=== PATIENT | female | born 1955 | race African-American/Black ===

== ENCOUNTER 2018-03-31 22:27 | Emergency (ER) | payer MEDICAID, OTHER ==
[~2018-03-31] VITALS: Ht 170.2 cm; Wt 88.0 kg
--- OUTSIDE RECORDS SUMMARY | 2018-03-31 22:33 | XMS REPORT ---
Author Author Orly Chanel Organization [employer] Address [address] [place] [address] Care Team Providers Care Transmission And Coordination Engineer Name Role Phone Orly Chanel Unavailable PROBLEMS Type Condition ICD9-CM Code [id number] Code Onset Dates Condition Status SNOMED Code Problem Chronic apical periodontitis K04.5 Active 6780292 Problem Gingivitis K05.10 Active 00690768 Problem 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 F41.1 Active 20507913 Problem Bipolar disorder, current episode mixed, unspecified F31.60 Active 87118319 ALLERGIES No Information ENCOUNTERS Encounter Location Date Diagnosis [facility] [address] [place] [phone] Sep, [facility] [address] [place] [phone] June, 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 F41.[address] [employer] [address] [place] [phone] June, [facility] [address] [place] [phone] [phone] Mar, 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 F41.1 [facility] [address] [place] [phone] Mar, [facility] [address] [place] [address] [phone] Dec, 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 F41.[address] [place] [address] [id number] Oct, Dental [address] [id number] Oct, Encounter for dental examination Z01.20 ; Dental caries extending into dentin K02.62 ; Chronic apical periodontitis K04.5 ; Periodontosis K05.4 and Gingivitis K05.10 Outpatient Adult [address] [place] [phone] Oct, [facility] [address] [place] [id number] [place] [phone] Sep, 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 F41.1 Outpatient Adult [address] [place] [address] May, [facility] [address] [place] [id number] [place] [phone] May, Bipolar disorder, current episode mixed, unspecified F31.60 [facility] [address] [place], [place] [id number] [place] [phone] Feb, [facility] [address] [place] [phone] Jan, Bipolar disorder, current episode mixed, unspecified F31.60 Outpatient Adult [address] [place] [phone] Jan, Bipolar disorder, current episode mixed, unspecified F31.60 Outpatient Adult [address] [place] [address] Dec, Bipolar disorder, current episode mixed, unspecified F31.60 Outpatient Adult [address] [place] [phone] Nov, Bipolar disorder, current episode mixed, unspecified F31.60 [facility] [address] [place] [address] [phone] Nov, [facility] [address] [place] [id number] [place] [phone] [phone] Oct, Bipolar disorder, current episode mixed, unspecified F31.60 Outpatient Adult [address] [place] [phone] Oct, Bipolar disorder, current episode mixed, unspecified F31.60 Outpatient Adult [address] [place] [phone] Sep, Bipolar disorder, current episode mixed, unspecified F31.60 [facility] [address] [place] [id number] [place] [phone] [address][phone] Apr, Bipolar disorder, current episode mixed, unspecified F31.60 [facility] [address] [place] [id number] [place] [phone] Apr, [facility] [address] [place] [address] Apr, [facility] [address] [place] [id number] [place] [phone] Apr, Bipolar disorder, current episode mixed, unspecified F31.60 and Anxiety F41.9 Outpatient Adult [address] [place] [phone] Apr, Bipolar disorder, current episode mixed, unspecified F31.60 and Post- traumatic stress disorder, chronic F43.12 Outpatient Adult [address] [place] [phone] Feb, Bipolar disorder, current episode mixed, unspecified F31.60 and Post- traumatic stress disorder, chronic F43.12 Outpatient Adult [address] [place] [address] Sep, Bipolar affective, mixed 296.60 and Posttraumatic stress disorder 309.81 [facility] [address] [place], [place] [id number] [place] [address]1521 Sep, Bipolar affective, mixed 296.60 and Anxiety disorder 300.00 [facility] Services [address] [place] [id number] [place] [phone] Jul, Bipolar affective, mixed 296.60 and Anxiety disorder 300.00 Outpatient Adult [address] [place] [phone] June, Posttraumatic stress disorder 309.81 and Bipolar affective, mixed 296.60 [facility] [address] [place] [id number] [place] [phone] June, Outpatient Adult [address] [place] [phone] June, Bipolar affective, mixed 296.60 and Posttraumatic stress disorder 309.81 N Outpatient [address] [place] [address] Jan, Bipolar affective, mixed 296.60 and Posttraumatic stress disorder 309.81 [facility] [address] [address] Jan, Bipolar affective, mixed 296.60 and Posttraumatic stress disorder 309.81 [facility] [address] [place] [address] Dec, Bipolar affective, mixed 296.60 and Posttraumatic stress disorder 309.81 [facility] [address] [address] Nov, Bipolar affective, mixed 296.60 and Posttraumatic stress disorder 309.[address] [place] [address] [id number] Nov, Cardiomyopathy 425.4 ; Bipolar affective, mixed 296.60 ; COPD (chronic obstructive pulmonary disease) 496 and Chronic back pain greater than 3 months duration 724.5 [place] [id number] [place] [address] [id number] Oct, [facility] Outpatient [address] [address] Oct, Bipolar affective, mixed 296.60 and Posttraumatic stress disorder 309.81 Psych[facility] Services [address] [place] [address] -[address] Sep, Bipolar affective, mixed 296.60 and Posttraumatic stress disorder 309.81 Outpatient Adult [address] [place] [address] Sep, Bipolar affective, mixed 296.60 and Posttraumatic stress disorder 309.81 [facility] Outpatient [address] [address] June, Bipolar affective, mixed 296.60 and Posttraumatic stress disorder 309.81 [facility] [place] [id number] [place] [phone] Apr, Bipolar affective, mixed 296.60 ; Posttraumatic stress disorder 309.81 and Insomnia, unspecified 780.52 Outpatient Adult [address] [place] [address] Dec, Bipolar affective, mixed 296.60 and Posttraumatic stress disorder 309.81 [facility] [address] [place] [id number] [place] [address] Nov, Bipolar affective, mixed 296.60 ; Posttraumatic stress disorder 309.81 ; Hypertension 401.9 ; Hyperlipidemia (Unspecified) 272.4 ; Coronary atherosclerosis due to calcified coronary lesion 414.4 ; Asthma, unspecified, unspecified status 493.90 ; Chronic pain syndrome 338.4 ; Hypothyroidism (unspecified) 244.9 ; Insomnia, unspecified 780.52 and tobacco use disorder 305.1 [facility] [address] [place] [address] [phone] Nov, [facility] [address] [place] [address] [phone] Nov, Presbyopia 367.4 [facility] [address] [place] [id number] [place] [phone] Nov, [facility] [address] [place] [phone] Nov, Outpatient Adult [address] [place] [address] Oct, Bipolar affective, mixed 296.60 and Posttraumatic stress disorder 309.81 [facility] [address] [place] [id number] [place] [phone] Sep, Bipolar affective, mixed 296.60 ; Posttraumatic stress disorder 309.81 ; Hypertension 401.9 ; Hyperlipidemia (Unspecified) 272.4 ; Coronary atherosclerosis due to calcified coronary lesion 414.4 ; Asthma, unspecified, unspecified status 493.90 ; Chronic pain syndrome 338.4 ; Hypothyroidism (unspecified) 244.9 ; Insomnia, unspecified 780.52 and tobacco use disorder 305.1 [facility] Psych [address] [place] [address] May, Bipolar affective, mixed 296.60 ; Posttraumatic stress disorder 309.81 ; Hypertension 401.9 ; Hyperlipidemia (Unspecified) 272.4 ; Coronary atherosclerosis due to calcified coronary lesion 414.4 ; Asthma, unspecified, unspecified status 493.90 ; Chronic pain syndrome 338.4 ; Hypothyroidism ( unspecified) 244.9 ; Insomnia, unspecified 780.52 ; tobacco use disorder 305.1 and Bipolar I disorder, most recent episode (or current) mixed, unspecified 296.60 [facility] Outpatient [address] [address] May, Bipolar affective, mixed 296.60 and Posttraumatic stress disorder 309.81 [facility] Outpatient [address] [address] Apr, Bipolar I disorder, most recent episode (or current) mixed, unspecified 296.60 [facility] [address] [place] [address] [phone] Mar, [facility] Psych [address] [id number] [address] Feb, Bipolar affective, mixed 296.60 ; Posttraumatic stress disorder 309.81 ; Hypertension 401.9 ; Hyperlipidemia (Unspecified) 272.4 ; Coronary atherosclerosis due to calcified coronary lesion 414.4 ; Asthma, unspecified, unspecified status 493.90 ; Chronic pain syndrome 338.4 ; Hypothyroidism ( unspecified) 244.9 ; Insomnia, unspecified 780.52 and tobacco use disorder 305.[address] [place] [address] [id number] Feb, Pneumonia 486 [facility] Outpatient [address] [address] Sep, Bipolar I disorder, most recent episode (or current) mixed, unspecified 296.[address] [id number] Sep, Hyperlipidemia (Unspecified) 272.4 and Congestive heart failure 428.[address] [id number] Aug, [facility] Psych [place] [id number] [place] [address] Aug, Bipolar affective, mixed 296.60 ; Posttraumatic stress disorder 309.81 ; Hypertension 401.9 ; Hyperlipidemia (Unspecified) 272.4 ; Coronary atherosclerosis due to calcified coronary lesion 414.4 ; Asthma, unspecified, unspecified status 493.90 ; Chronic pain syndrome 338.4 ; Hypothyroidism ( unspecified) 244.9 ; Insomnia, unspecified 780.52 and tobacco use disorder 305.[address] [place] [address] [id number] Aug, [facility] Outpatient [address] [address] Aug, Major depressive disorder, recurrent episode, moderate 296.32 [address] [place] [address] [id number] Aug, Chronic pain syndrome 338.4 ; Asthma, unspecified, unspecified status 493.90 ; Hypothyroidism (unspecified) 244.9 ; Renal failure 586 ; Hyperlipidemia (Unspecified) 272.4 and Screening for HIV (human immunodeficiency virus) V73.89 Psych[facility] Services [address] [place] [id number] [place] [phone] Jul, Major depressive disorder, recurrent episode, moderate 296.32 Outpatient Adult [address] [place] [address] Jul, Major depressive disorder, recurrent episode, moderate 296.32 Outpatient Adult [address] [place] [address] Jul, Major depressive disorder, recurrent episode, moderate 296.32 [facility] [address] [place] [id number] [place] [phone] [address][phone] Jul, Bipolar affective disorder, currently depressed, moderate 296.52 [facility] Psych [place] [id number] [place] [phone] June, Depressive disorder, not elsewhere classified 311 ; Anxiety state, unspecified 300.00 ; Hypertension 401.9 ; Hyperlipidemia (Unspecified) 272.4 ; Coronary atherosclerosis due to calcified coronary lesion 414.4 ; Asthma, unspecified, unspecified status 493.90 ; Chronic pain syndrome 338.4 ; Hypothyroidism (unspecified) 244.9 ; Insomnia, unspecified 780.52 ; tobacco use disorder 305.1 ; Major depressive disorder, recurrent episode, moderate 296.32 and Posttraumatic stress disorder 309.[address] [id number] June, [facility] Outpatient [address] [address] June, Major depressive disorder, recurrent episode, moderate 296.[address] [id number] June, Chronic pain syndrome 338.4 [facility] [address] [place] [address] [id number] May, [facility] Outpatient [address] [address] May, Major depressive disorder, recurrent episode, moderate 296.32 and Posttraumatic stress disorder 309.81 [place] [id number] [place] [address] [id number] May, HIV (human immunodeficiency virus infection) V08 ; Hyperlipidemia ( Unspecified) 272.4 and Chronic pain syndrome 338.[address] [id number] Apr, Chronic pain syndrome 338.4 ; Hypertension 401.9 ; Human immunodeficiency virus [HIV] 042 and Asthma, unspecified, unspecified status 493.90 [facility] Outpatient [address] [address] Apr, Major depressive disorder, recurrent episode, moderate 296.32 [address] [place] [address] [id number] Apr, [address] [id number] Mar, HIV (human immunodeficiency virus infection) V08 [place] [id number] [place] [address] [id number] Mar, [facility] Psych [address] [address] Mar, Anxiety state, unspecified 300.[address] [id number] Mar, Lumbago 724.2 ; Other dyspnea and respiratory abnormalities 786.09 ; Hypothyroidism (unspecified) 244.9 ; Esophageal reflux 530.81 ; Hypertension 401.9 ; Hyperlipidemia (Unspecified) 272.4 and Screening for unspecified condition V82.[address] [id number] Feb, [address] [id number] Feb, Lumbago 724.[address] [id number] Feb, [address] [id number] Feb, [place] [id number] [place] [address] [id number] Jan, Lumbago 724.2 and Other dyspnea and respiratory abnormalities 786.09 [facility] Outpatient [address] [address] Dec, Major depressive disorder, recurrent episode, moderate 296.32 and Posttraumatic stress disorder 309.81 [place] [id number] [place] [address] [id number] Dec, Lumbago 724.2 ; Esophageal reflux 530.81 and Hypothyroidism (unspecified) 244.9 [facility] Psych [place] [id number] [place] [address] Dec, Anxiety state, unspecified 300.00 [facility] Psych [address] [place] [address] Nov, Anxiety state, unspecified 300.[address] [id number] [id number] Nov, Lumbago 724.2 [facility] Outpatient [address] [address] Oct, Major depressive disorder, recurrent episode, moderate 296.32 and Posttraumatic stress disorder 309.[id number] [id number] Oct, [id number] [id number] Sep, [id number] [id number] Sep, Lumbago 724.2 ; Unspecified urinary incontinence 788.30 and Obstructive sleep apnea (adult) (pediatric) 327.[address] [address] Sep, Major depressive disorder, recurrent episode, moderate 296.32 and Posttraumatic stress disorder 309.[id number] [place] [address] [id number] Sep, [id number] [place] [address] [id number] Sep, [id number] [place] [address] [id number] Aug, [id number] [place] [address] Jul, Bipolar I disorder, most recent episode (or current) mixed, unspecified 296.60 and Anxiety state, unspecified 300.[address] [address] Jul, Major depressive disorder, recurrent episode, moderate 296.32 and Posttraumatic stress disorder 309.[id number] [place] [address] [id number] Jul, Lumbago 724.2 ; Personal history of tobacco use, presenting hazards to health V15.82 ; Memory loss 780.93 and Obstructive sleep apnea (adult) ( pediatric) 327.[id number] [place] [address] [id number] Jul, [address] [id number] [id number] Jul, [address] [place] [address] [id number] June, [address] [id number] June, [address] [id number] June, Cough 786.2 [facility] Psych [place] [id number] [place] [address] June, Anxiety state, unspecified 300.00 [facility] Outpatient [address] [address] May, Major depressive disorder, recurrent episode, moderate 296.32 and Posttraumatic stress disorder 309.81 [id number] [id number] May, Lumbago 724.2 and Other dyspnea and respiratory abnormalities 786.09 [facility] Dental [address] [place], [place] [id number] [place] [address] [id number] May, Unspecified dental caries 521.00 [facility] Outpatient [address] [address] Mar, Major depressive disorder, recurrent episode, moderate 296.32 and Posttraumatic stress disorder 309.81 [facility] Dental [address] [place] [id number] Mar, Unspecified dental caries 521.00 and Other specified periodontal diseases 523.8 [address] [id number] Mar, Backache (Unspecified) 724.5 and Wheezing 786.07 [facility] Outpatient [address] [address] Mar, Major depressive disorder, recurrent episode, moderate 296.32 and Posttraumatic stress disorder 309.81 [facility] Outpatient [address] [address] Feb, Major depressive disorder, recurrent episode, moderate 296.32 and Posttraumatic stress disorder 309.81 [facility] [address] [address] Feb, Major depressive disorder, recurrent episode, moderate 296.32 and 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 300.02 Outpatient Adult [address] [place] [address] Feb, Major depressive disorder, recurrent episode, moderate 296.32 and Posttraumatic stress disorder 309.81 [facility] [address] [place] [address] Feb, Major depressive disorder, recurrent episode, moderate 296.32 and Posttraumatic stress disorder 309.81 [facility] Dental [address] [facility] [id number] [id number] Feb, Dental examination V72.2 and Periodontosis 523.5 [facility] [address] [facility] [id number] [id number] Feb, Lumbago 724.2 ; Esophageal reflux 530.81 ; Unspecified urinary incontinence 788.30 ; Constipation (Unspecified) 564.00 ; Other dyspnea and respiratory abnormalities 786.09 and Hypothyroidism (unspecified) 244.9 Outpatient Adult [address] [place] [address] Feb, Outpatient Adult [address] [place] [address] Feb, Major depressive disorder, recurrent episode, moderate 296.32 and Posttraumatic stress disorder 309.81 [facility] [address] [place] [address] Feb, Major depressive disorder, recurrent episode, moderate 296.32 and Posttraumatic stress disorder 309.81 [facility] [address] [place] [id number] Feb, IMMUNIZATIONS No Known Immunizations SOCIAL HISTORY Never Assessed REASON FOR VISIT Case Management PLAN OF CARE VITAL SIGNS MEDICATIONS Unknown Medications RESULTS No Results PROCEDURES Procedure Date Ordered Result Body Site CASE MNMT-PARAPROFESS IND 15 MIN June 29, 2017 INSTRUCTIONS MEDICATIONS ADMINISTERED No Known Medications MEDICAL (GENERAL) HISTORY Type Description Date Medical History High Blood Pressure Medical History High Cholesterol Medical History Coronary Artery Disease Medical History Asthma Medical History Chronic back pain Medical History Anxiety Medical History depression Medical History hypothyroidism Medical History Bipolar affective, mixed Medical History Posttraumatic stress disorder Medical History Posttraumatic stress disorder Medical History Hypertension Medical History Hyperlipidemia (Unspecified) Medical History Coronary atherosclerosis due to calcified coronary lesion Medical History Asthma, unspecified, unspecified status Medical History Chronic pain syndrome Medical History Hypothyroidism (unspecified) Medical History Insomnia, unspecified Medical History tobacco use disorder Medical History Cardiomyopathy Medical History COPD (chronic obstructive pulmonary disease) Medical History Chronic back pain greater than 3 months duration Medical History CHF (congestive heart failure) Medical History Post-traumatic stress disorder, chronic Surgical History 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
--- OUTSIDE RECORDS SUMMARY | 2018-03-31 22:34 | XMS REPORT ---
Author Author Deepika Christiansen Organization [employer] Address Unknown Phone Unavailable Care Team Providers Care Technical Translator Name Role Phone Deepika Christiansen Unavailable Allergies No Known Allergies Problems Problem Type Condition Code Onset Dates Condition Status Problem Bipolar disorder, current episode mixed, unspecified F31.60 Active Medications Medication Code System Code Instructions Start Date End Date Status Dosage Benzonatate [facility] [address]-44 200 MG Orally Three times a day Sep 28, 2013 1 capsule as needed Potassium Chloride [facility] [address]-81 10 MEQ Orally Once a day April 29, 2011 2 tablet Aspir-81 [facility] [address]-23 81 MG Orally Once a day 1 tablet Spiriva HandiHaler [facility] [address]-76 18 MCG Inhalation Once a day 1 capsule Spironolactone [facility] [address]-78 25 MG Orally Twice a day 1 tablet Xanax [facility] [place] [address]-04 0.5 MG Orally tid prn anxiety 1 tablet Advair HFA [facility] [place] [address]-90 115-21 MCG/ACT Inhalation Twice a day 2 puffs Xanax [facility] [place] [address]-62 1 MG Orally tid prn anxiety 1 tablet Coreg [facility] [address]-21 25 MG Orally Twice a day 1 tablet Percocet [facility] [place] [address]-49 7.5-325 MG Orally tid prn pain 1 tablet as needed Results No Known Results Summary Purpose [employer] Submission
--- OUTSIDE RECORDS SUMMARY | 2018-03-31 22:34 | XMS REPORT ---
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 Name Role Phone Jimbo Christianson Unavailable PROBLEMS Type Condition ICD9-CM Code [id number] Code Onset Dates Condition Status SNOMED Code Problem Chronic apical periodontitis K04.5 Active 2993894 Problem Gingivitis K05.10 Active 29206349 Problem 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 F41.1 Active 33134451 Problem Bipolar disorder, current episode mixed, unspecified F31.60 Active 83177154 ALLERGIES Substance Reaction Event Type Date Status morphine Unknown Drug Allergy Sep, Active Iodine Unknown Drug Allergy Sep, Active Adhesive Tape Rash Non Drug Allergy Sep, Active ENCOUNTERS Encounter Location Date Diagnosis [facility] [address] [place] [id number] [place] [address] [phone] Dec, [facility] [address] [place] [phone] Sep, 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 F41.1 [facility] [address] [place] [phone] June, 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 F41.1 [employer] [address] [place] [address] June, [facility] [address] [place] [id number] [place] [address] [phone] Mar, 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 F41.1 [facility] [address] [place] [id number] [place] [address] [phone] Mar, [facility] [address] [place] [phone] Dec, 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 F41.1 Optometry [address] [place] [phone] Oct, Dental [address] [id number] Oct, Encounter for dental examination Z01.20 ; Dental caries extending into dentin K02.62 ; Chronic apical periodontitis K04.5 ; Periodontosis K05.4 and Gingivitis K05.10 Outpatient Adult [address] [place] [address] Oct, [facility] [address] [place] [id number] [place] [phone] Sep, 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 F41.1 Outpatient Adult [address] [place] [address] May, [facility] [address] [place] [phone] May, Bipolar disorder, current episode mixed, unspecified F31.60 [facility] [address] [place] [id number] [place] [phone] Feb, [facility] [address] [place] [phone] Jan, Bipolar disorder, current episode mixed, unspecified F31.60 Outpatient Adult [address] [place] [address] Jan, Bipolar disorder, current episode mixed, unspecified F31.60 Outpatient Adult [address] [place] [address] Dec, Bipolar disorder, current episode mixed, unspecified F31.60 Outpatient Adult [address] [place] [address] Nov, Bipolar disorder, current episode mixed, unspecified F31.60 [facility] [address] [place] [address] [phone] Nov, [facility] [address] [place] [id number] [place] [phone] Oct, Bipolar disorder, current episode mixed, unspecified F31.60 Outpatient Adult [address] [place] [address] Oct, Bipolar disorder, current episode mixed, unspecified F31.60 Outpatient Adult [address] [place] [address] Sep, Bipolar disorder, current episode mixed, unspecified F31.60 [facility] [address] [place] [id number] [place] [phone] Apr, Bipolar disorder, current episode mixed, unspecified F31.60 [facility] [address] [place] [id number] [place] [phone] Apr, [facility] [address] [place] [address] Apr, [facility] [address] [place] [id number] [place] [phone] Apr, Bipolar disorder, current episode mixed, unspecified F31.60 and Anxiety F41.9 Outpatient Adult [address] [place] [address] Apr, Bipolar disorder, current episode mixed, unspecified F31.60 and Post- traumatic stress disorder, chronic F43.12 Outpatient Adult [address] [place] [address] Feb, Bipolar disorder, current episode mixed, unspecified F31.60 and Post- traumatic stress disorder, chronic F43.12 Outpatient Adult [address] [place] [address] Sep, Bipolar affective, mixed 296.60 and Posttraumatic stress disorder 309.81 [facility] [address] [place] [id number] [place] [phone] Sep, Bipolar affective, mixed 296.60 and Anxiety disorder 300.00 [facility] [address] [place] [id number] [place] [phone] Jul, Bipolar affective, mixed 296.60 and Anxiety disorder 300.00 Outpatient Adult [address] [place] [address] June, Posttraumatic stress disorder 309.81 and Bipolar affective, mixed 296.60 [facility] [address] [place] [id number] [place] [phone] June, Outpatient Adult [address] [place] [phone] June, Bipolar affective, mixed 296.60 and Posttraumatic stress disorder 309.81 N Outpatient [address] [place] [address] Jan, Bipolar affective, mixed 296.60 and Posttraumatic stress disorder 309.81 [facility] [address] [place] [id number] [place] [address] Jan, Bipolar affective, mixed 296.60 and Posttraumatic stress disorder 309.81 [facility] Outpatient [address] [address] Dec, Bipolar affective, mixed 296.60 and Posttraumatic stress disorder 309.81 [facility] Outpatient [address] [address] Nov, Bipolar affective, mixed 296.60 and Posttraumatic stress disorder 309.81 [address] [id number] Nov, Cardiomyopathy 425.4 ; Bipolar affective, mixed 296.60 ; COPD (chronic obstructive pulmonary disease) 496 and Chronic back pain greater than 3 months duration 724.5 [place] [id number] [place] [address] [phone] Oct, [facility] Outpatient [address] [address] Oct, Bipolar affective, mixed 296.60 and Posttraumatic stress disorder 309.81 [facility] [address] [place] [id number] [place] [phone] Sep, Bipolar affective, mixed 296.60 and Posttraumatic stress disorder 309.81 Outpatient Adult [address] [place] [address] Sep, Bipolar affective, mixed 296.60 and Posttraumatic stress disorder 309.81 [facility] Outpatient [address] [address] June, Bipolar affective, mixed 296.60 and Posttraumatic stress disorder 309.81 [facility] Psych [address] [place] [address] Apr, Bipolar affective, mixed 296.60 ; Posttraumatic stress disorder 309.81 and Insomnia, unspecified 780.52 Outpatient Adult [address] [place] [address] Dec, Bipolar affective, mixed 296.60 and Posttraumatic stress disorder 309.81 [facility] [address] [place] [id number] [place] [address] Nov, Bipolar affective, mixed 296.60 ; Posttraumatic stress disorder 309.81 ; Hypertension 401.9 ; Hyperlipidemia (Unspecified) 272.4 ; Coronary atherosclerosis due to calcified coronary lesion 414.4 ; Asthma, unspecified, unspecified status 493.90 ; Chronic pain syndrome 338.4 ; Hypothyroidism (unspecified) 244.9 ; Insomnia, unspecified 780.52 and tobacco use disorder 305.1 [facility] [address] [place] [phone] Nov, [facility] [address] [place] [phone] Nov, Presbyopia 367.4 [facility] [address] [place] [address] [id number] [address] Nov, [facility] [address] [place] [address] [phone] Nov, Outpatient Adult [address] [place] [address] Oct, Bipolar affective, mixed 296.60 and Posttraumatic stress disorder 309.81 [facility] [address] [place] [address] Sep, Bipolar affective, mixed 296.60 ; Posttraumatic stress disorder 309.81 ; Hypertension 401.9 ; Hyperlipidemia (Unspecified) 272.4 ; Coronary atherosclerosis due to calcified coronary lesion 414.4 ; Asthma, unspecified, unspecified status 493.90 ; Chronic pain syndrome 338.4 ; Hypothyroidism (unspecified) 244.9 ; Insomnia, unspecified 780.52 and tobacco use disorder 305.1 N Psych [facility] [id number] [address] May, Bipolar affective, mixed 296.60 ; Posttraumatic stress disorder 309.81 ; Hypertension 401.9 ; Hyperlipidemia (Unspecified) 272.4 ; Coronary atherosclerosis due to calcified coronary lesion 414.4 ; Asthma, unspecified, unspecified status 493.90 ; Chronic pain syndrome 338.4 ; Hypothyroidism ( unspecified) 244.9 ; Insomnia, unspecified 780.52 ; tobacco use disorder 305.1 and Bipolar I disorder, most recent episode (or current) mixed, unspecified 296.60 [facility] Outpatient [facility] [place] [address] May, Bipolar affective, mixed 296.60 and Posttraumatic stress disorder 309.81 [facility] Outpatient [facility] [place] [address] Apr, Bipolar I disorder, most recent episode (or current) mixed, unspecified 296.60 [facility] [address] [place] [address] [phone] Mar, [facility] Psych [address] [id number] [address] Feb, Bipolar affective, mixed 296.60 ; Posttraumatic stress disorder 309.81 ; Hypertension 401.9 ; Hyperlipidemia (Unspecified) 272.4 ; Coronary atherosclerosis due to calcified coronary lesion 414.4 ; Asthma, unspecified, unspecified status 493.90 ; Chronic pain syndrome 338.4 ; Hypothyroidism ( unspecified) 244.9 ; Insomnia, unspecified 780.52 and tobacco use disorder 305.[id number] [place] [address] [id number] Feb, Pneumonia 486 [facility] Outpatient [address] [address] Sep, Bipolar I disorder, most recent episode (or current) mixed, unspecified 296.[id number] [place] [address] [id number] Sep, Hyperlipidemia (Unspecified) 272.4 and Congestive heart failure 428.0 [address] [place] [address] [id number] Aug, [id number] [place] [address] Aug, Bipolar affective, mixed 296.60 ; Posttraumatic stress disorder 309.81 ; Hypertension 401.9 ; Hyperlipidemia (Unspecified) 272.4 ; Coronary atherosclerosis due to calcified coronary lesion 414.4 ; Asthma, unspecified, unspecified status 493.90 ; Chronic pain syndrome 338.4 ; Hypothyroidism ( unspecified) 244.9 ; Insomnia, unspecified 780.52 and tobacco use disorder 305.[id number] [place] [address] [id number] Aug, [facility] Outpatient [address] [address] Aug, Major depressive disorder, recurrent episode, moderate 296.[id number] [place] [address] [id number] Aug, Chronic pain syndrome 338.4 ; Asthma, unspecified, unspecified status 493.90 ; Hypothyroidism (unspecified) 244.9 ; Renal failure 586 ; Hyperlipidemia (Unspecified) 272.4 and Screening for HIV (human immunodeficiency virus) V73.89 [facility] [address] [id number], [place] [address] Jul, Major depressive disorder, recurrent episode, moderate 296.32 Outpatient Adult [address] [place] [address] Jul, Major depressive disorder, recurrent episode, moderate 296.32 Outpatient Adult [address] [place] [address] Jul, Major depressive disorder, recurrent episode, moderate 296.32 [facility] [address] [place] [address]71 [address] Jul, Bipolar affective disorder, currently depressed, moderate 296.52 [facility] Psych [place] [id number] [place] [address] June, Depressive disorder, not elsewhere classified 311 [...] moderate 296.32 and Posttraumatic stress disorder 309.81 [place] [id number] [place] [address] [id number] June, [facility] Outpatient [address] [address] June, Major depressive disorder, recurrent episode, moderate 296.32 [place] [id number] [place] [address] [id number] June, Chronic pain syndrome 338.4 [facility] [address] [place] [address] [id number] May, [facility] Outpatient [address] [address] May, Major depressive disorder, recurrent episode, moderate 296.32 and Posttraumatic stress disorder 309.[address] [place] [id number] [place] [address] [id number] May, HIV (human immunodeficiency virus infection) V08 ; Hyperlipidemia ( Unspecified) 272.4 and Chronic pain syndrome 338.[address] [place] [id number] [place] [address] [id number] Apr, Chronic pain syndrome 338.4 ; Hypertension 401.9 ; Human immunodeficiency virus [HIV] 042 and Asthma, unspecified, unspecified status 493.90 [facility] Outpatient [address] [address] Apr, Major depressive disorder, recurrent episode, moderate 296.32 [place] [id number] [place] [address] [id number] Apr, [address] [id number] Mar, HIV (human immunodeficiency virus infection) V08 [place] [id number] [place] [address] [id number] Mar, [facility] Psych [address] [address] Mar, Anxiety state, unspecified 300.00 [place] [id number] [place] [address] [id number] Mar, Lumbago 724.2 ; Other dyspnea and respiratory abnormalities 786.09 ; Hypothyroidism (unspecified) 244.9 ; Esophageal reflux 530.81 ; Hypertension 401.9 ; Hyperlipidemia (Unspecified) 272.4 and Screening for unspecified condition V82.9 [place] [id number] [place] [address] [id number] Feb, [place] [id number] [place] [address] [id number] Feb, Lumbago 724.[address] [place] [address] [id number] Feb, [place] [id number] [place] [address] [id number] Feb, [address] [place] [address] [phone] Jan, Lumbago 724.2 and Other dyspnea and respiratory abnormalities 786.09 [facility] Outpatient [address] [address] Dec, Major depressive disorder, recurrent episode, moderate 296.32 and Posttraumatic stress disorder 309.81 [address] [id number] Dec, Lumbago 724.2 ; Esophageal reflux 530.81 and Hypothyroidism (unspecified) 244.9 [facility] Psych [address] [id number], [place] [address] Dec, Anxiety state, unspecified 300.00 [facility] Psych [address] [id number], [place] [address] Nov, Anxiety state, unspecified 300.[id number] [place] [address] [id number] Nov, Lumbago 724.2 [facility] Outpatient [address] [address] Oct, Major depressive disorder, recurrent episode, moderate 296.32 and Posttraumatic stress disorder 309.[id number] [place] [address] [id number] Oct, [address] [id number] [id number] Sep, [address] [id number] [place] [address] [id number] Sep, Lumbago 724.2 ; Unspecified urinary incontinence 788.30 and Obstructive sleep apnea (adult) (pediatric) 327.23 [facility] Outpatient [address] [address] Sep, Major depressive disorder, recurrent episode, moderate 296.32 and Posttraumatic stress disorder 309.[address] [id number] [id number] Sep, [address] [id number][place] [id number] Sep, [address] [id number][place] [id number] Aug, [id number] [place] [address] Jul, Bipolar I disorder, most recent episode (or current) mixed, unspecified 296.60 and Anxiety state, unspecified 300.00 [facility] Outpatient [address] [address] Jul, Major depressive disorder, recurrent episode, moderate 296.32 and Posttraumatic stress disorder 309.[address] [id number] [id number] Jul, Lumbago 724.2 ; Personal history of tobacco use, presenting hazards to health V15.82 ; Memory loss 780.93 and Obstructive sleep apnea (adult) ( pediatric) 327.[id number] [place] [address] [id number] Jul, [id number] [place] [address] [id number] Jul, [id number] [id number] June, [id number] [id number] June, [id number] [id number] June, Cough 786.2 [facility] Psych [address] [address] June, Anxiety state, unspecified 300.00 [facility] Outpatient [address] [address] May, Major depressive disorder, recurrent episode, moderate 296.32 and Posttraumatic stress disorder 309.[address] [place] [id number] [place] [address] [id number] May, Lumbago 724.2 and Other dyspnea and respiratory abnormalities 786.09 [facility] Dental [address] [place] [address] [id number] May, Unspecified dental caries 521.00 [facility] Outpatient [address] [address] Mar, Major depressive disorder, recurrent episode, moderate 296.32 and Posttraumatic stress disorder 309.81 [facility] Dental [address] [place] [address] [id number] Mar, Unspecified dental caries 521.00 and Other specified periodontal diseases 523.[address] [id number] Mar, Backache (Unspecified) 724.5 and Wheezing 786.07 [facility] Outpatient [address] [address] Mar, Major depressive disorder, recurrent episode, moderate 296.32 and Posttraumatic stress disorder 309.81 [facility] Outpatient [address] [address] Feb, Major depressive disorder, recurrent episode, moderate 296.32 and Posttraumatic stress disorder 309.81 [facility] [address] [facility] [id number], [place] [address] Feb, Major depressive disorder, recurrent episode, moderate 296.32 and 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 300.02 Outpatient Adult [address] [place] [address] Feb, Major depressive disorder, recurrent episode, moderate 296.32 and Posttraumatic stress disorder 309.81 [facility] [address] [place] [address] Feb, Major depressive disorder, recurrent episode, moderate 296.32 and Posttraumatic stress disorder 309.81 [facility] Dental [address] [facility] [id number] [id number] Feb, Dental examination V72.2 and Periodontosis 523.5 [facility] [address] [facility] [id number], [place] [id number] Feb, Lumbago 724.2 ; Esophageal reflux 530.81 ; Unspecified urinary incontinence 788.30 ; Constipation (Unspecified) 564.00 ; Other dyspnea and respiratory abnormalities 786.09 and Hypothyroidism (unspecified) 244.9 Outpatient Adult [address] [place] [address] Feb, Outpatient Adult [address] [place] [address] Feb, Major depressive disorder, recurrent episode, moderate 296.32 and Posttraumatic stress disorder 309.81 [facility] [address] [place] [address] Feb, Major depressive disorder, recurrent episode, moderate 296.32 and Posttraumatic stress disorder 309.81 [facility] [address] [place] [address] [id number] Feb, IMMUNIZATIONS No Known Immunizations SOCIAL HISTORY Never Assessed REASON FOR VISIT Med ck , follow-up for generalized anxiety disorder PLAN OF CARE Activity Details Follow Up 3 Months Reason: VITAL SIGNS Height 61 in 2017-09-30 Weight 195 lbs 2017-09-30 Temperature 96.1 degrees Fahrenheit 2017-09-30 BMI 36.84 kg/m2 2017-09-30 Blood pressure systolic 107 mm Hg 2017-09-30 Blood pressure diastolic 80 mm Hg 2017-09-30 MEDICATIONS Medication Instructions Dosage Frequency Start Date End Date Duration Status Vitamin D 1000 UNIT Orally Once a day 1 tablet 24h 30 day(s) Active Levaquin 500 MG Orally Once a day 1 tablet 24h Active Fish Oil 1000 MG as directed Not-Taking Promethazine HCl Active Fluticasone Propionate (Inhal) 50 MCG/BLIST Inhalation Twice a day 1 puff 12h Active Torsemide 10 MG Orally Once a day 1 tablet 24h Active Potassium Chloride 10 MEQ Orally Once a day 2 tablet 24h Apr, Not-Taking Acetaminophen 500 MG Orally every 6 hrs 1 capsule as needed 6h Active Docusate Sodium 100 MG Orally bid 1 capsule as needed 12h Active Spironolactone 25 MG Orally Twice a day 1 tablet 12h Active 28-0.8 MG Active Nicotrol 10 MG Inhalation qid 1 puff as needed 6h Active Norvasc 5 MG Orally Once a day 1 tablet 24h 30 days Active Xanax 0.5 MG Orally Three times a day(don't fill until 10/31/17) 1 tablet 60 days Active Nitroglycerin 0.4 MG Sublingual every 8 hrs 1 tablet under the tongue 8h Active Lisinopril 2.5 MG Orally Once a day 1 tablet 24h Not-Taking Albuterol Sulfate (2.5 MG/3ML) 0.083% Inhalation Three times a day 3 ml 8h Feb, Active Polyethylene Glycol - Not-Taking Entresto 24-26 MG Orally Twice a day 1 tablet 12h Active Valsartan 40 MG Orally Twice a day 1 tablet 12h Active Daliresp 500 MCG Orally Once a day 1 tablet 24h Active Benzonatate 200 MG Orally Three times a day 1 capsule as needed 8h Sep, Active Spiriva HandiHaler 18 MCG Inhalation Once a day 1 capsule 24h Active Atrovent HFA 17 MCG/ACT Inhalation Four times a day 2 puffs 6h Active ALPRAZolam 0.5 MG Orally three times daily(can take a total of 120) 1-2 tablet Active oxyCODONE-Acetaminophen 7.5-325 MG Orally every 6 hrs 1 tablet as needed 6h Active Breo Ellipta 200-25 MCG/INH Inhalation Once a day 1 puff 24h Active Percocet 7.5-325 MG Orally tid prn pain 1 tablet as needed 30 days Active Voltaren 1 % Active Eliquis 5 MG Active Acyclovir 400 MG Orally Twice a day 1 tablet 12h Active Amiodarone HCl 200 MG Orally Once a day 1 tablet 24h Not-Taking Coreg 6.25 MG Orally Twice a day 1 tablet 12h Active Carvedilol 25 MG Orally Twice a day 1 tablet with food 12h Sep, Not-Taking Senna 8.6 MG Orally Once a day 2 tablets at bedtime as needed 24h Active Lasix 80 MG Orally Once a day 1 tablet 24h Active Advair HFA 115-21 MCG/ACT Inhalation Twice a day 2 puffs 12h Active Levothyroxine Sodium 25 MCG TAKE ONE TABLET BY MOUTH EVERY MORNING FOR EMPTY STOMACH Active Atorvastatin Calcium 40 MG Orally Once a day 1 tablet 24h Active Lexapro 10 MG Orally Once a day in AM 1 tablet Apr, 90 days Active Aspir-81 81 MG Orally Once a day 1 tablet 24h Active Lovastatin 40 mg Orally Once a day 1 tablet with a meal 24h Active Albuterol Sulfate HFA 108 (90 Base) MCG/ACT Inhalation every 4 hrs 2 puffs as needed 4h Active Omeprazole 20 MG Orally Once a day 1 tablet 24h 30 days Active RESULTS No Results PROCEDURES No Known procedures INSTRUCTIONS MEDICATIONS ADMINISTERED No Known Medications MEDICAL [...] 10/2014 Surgical History trach 09/2014 Hospitalization History [place], [place] 09/2014
--- OUTSIDE RECORDS SUMMARY | 2018-03-31 22:34 | XMS REPORT ---
Author Author Benjamin Sierra Organization [employer] Address Unknown Phone Unavailable Care Team Providers Care Under Baster Name Role Phone Benjamin Sierra CP Unavailable Allergies No Known Allergies Problems Problem Type Condition Code Onset Dates Condition Status Assessment Bipolar disorder, current episode mixed, unspecified F31.60 Active Problem Bipolar disorder, current episode mixed, unspecified F31.60 Active Medications Medication Code System Code Instructions Start Date End Date Status Dosage Coreg [facility] [address]-82 25 MG Orally Twice a day 1 tablet Spiriva HandiHaler [facility] [address]-76 18 MCG Inhalation Once a day 1 capsule Advair HFA [facility] [address]-91 115-21 MCG/ACT Inhalation Twice a day 2 puffs Xanax [facility] [address]-58 1 MG Orally tid prn anxiety 1 tablet Xanax [facility] [address]-81 0.5 MG Orally tid prn anxiety 1 tablet Percocet [facility] [address]-44 7.5-325 MG Orally tid prn pain 1 tablet as needed Aspir-81 [facility] [address]-62 81 MG Orally Once a day 1 tablet Benzonatate [facility] [address]-05 200 MG Orally Three times a day Sep 28, 2013 1 capsule as needed Spironolactone [facility] [address]-49 25 MG Orally Twice a day 1 tablet Potassium Chloride [facility] [address]-09 10 MEQ Orally Once a day April 29, 2011 2 tablet Procedures Procedure Coding System Code Date PSYTX PT&/FAMILY 45 MINUTES CPT-4 01434 Dec 05, 2015 [facility]IS[facility] M[facility] HEALTH ESTABLISHED PATIENT CPT-4 G0470 Dec 05, 2015 Results No Known Results Summary Purpose eClinicalWorks Submission
--- OUTSIDE RECORDS SUMMARY | 2018-03-31 22:34 | XMS REPORT ---
Author Benjamin Samuels [facility] [employer] Address Unknown Phone Unavailable Care Team Providers Care Manager Services Name Role Phone Benjamin Sierra Unavailable Allergies No Known Allergies Problems Problem Type Condition Code Onset Dates Condition Status Problem Asthma, unspecified, unspecified status 493.90 Active Problem Hyperlipidemia (Unspecified) 272.4 Active Problem Coronary atherosclerosis due to calcified coronary lesion 414.4 Active Problem COPD (chronic obstructive pulmonary disease) 496 Active Problem Chronic back pain greater than 3 months duration 724.5 Active Problem Cardiomyopathy 425.4 Active Problem Post-traumatic stress disorder, chronic F43.12 Active Problem Hypertension 401.9 Active Problem CHF (congestive heart failure) 428.0 Active Problem Bipolar disorder, current episode mixed, unspecified F31.60 Active Problem tobacco use disorder 305.1 Active Problem Insomnia, unspecified 780.52 Active Assessment Post-traumatic stress disorder, chronic F43.12 Active Problem Hypothyroidism (unspecified) 244.9 Active Assessment Bipolar disorder, current episode mixed, unspecified F31.60 Active Problem Chronic pain syndrome 338.4 Active Medications Medication Code System Code Instructions Start Date End Date Status Dosage Spiriva HandiHaler [facility] [address]-48 18 MCG Inhalation Once a day 1 capsule Albuterol Sulfate [facility] [address]-18 (2.5 MG/3ML) 0.083% Inhalation Three times a day Feb 25, 2012 3 ml Fish Oil [facility] [address]-86 1000 MG Orally as directed Nitroglycerin [facility] [address]-87 0.4 MG Sublingual every 8 hrs 1 tablet under the tongue Levothyroxine Sodium [facility] [address]-61 50 MCG TAKE ONE TABLET BY MOUTH EVERY MORNING FOR EMPTY STOMACH Seroquel [facility] [address]-46 50 MG Orally at bedtime Dec 08, 2012 1 tablet Lamictal [facility] [address]-67 25 MG Orally at bedtime July 26, 2014 1 tablet Lovastatin [facility] [address]-63 40 mg Orally Once a day 1 tablet with a meal Coreg [facility] [address]-13 25 MG Orally Twice a day 1 tablet Omeprazole [facility] [address]-57 20 MG Orally Once a day 1 tablet Vitamin D [facility] [address]-55 1000 UNIT Orally Once a day 1 tablet Daliresp [facility] [address]-13 500 MCG Orally Once a day 1 tablet Nicotrol [facility] [address]-56 10 MG Inhalation qid 1 puff as needed Docusate Sodium [facility] [address]-73 100 MG Orally bid 1 capsule as needed Aspir-81 [facility] [address]-08 81 MG Orally Once a day 1 tablet Advair HFA [facility] [address]-14 115-21 MCG/ACT Inhalation Twice a day 2 puffs Lamictal [facility] [address]-98 25 MG Orally at bedtime 2 tablets [facility] [address]54-[address]1600 28-0.8 MG Orally not defined Lisinopril [facility] [address]-01 2.5 MG Orally Once a day 1 tablet Potassium Chloride [facility] [address]-21 10 MEQ Orally Once a day April 29, 2011 2 tablet Spironolactone [facility] [address]-73 25 MG Orally Twice a day 1 tablet Carvedilol [facility] [address]-76 25 MG Orally Twice a day Sep 28, 2013 1 tablet with food Xanax [facility] [address]-33 1 MG Orally tid prn anxiety 1 tablet Norvasc [facility] [address]-25 5 MG Orally Once a day 1 tablet Lasix [facility] [address]-26 80 MG Orally Once a day 1 tablet Benzonatate [facility] [address]-04 200 MG Orally Three times a day Sep 28, 2013 1 capsule as needed Albuterol Sulfate HFA [facility] [address]-68 108 (90 Base) MCG/ACT Inhalation every 4 hrs 2 puffs as needed Percocet [facility] [address]-23 7.5-325 MG Orally tid prn pain 1 tablet as needed Acetaminophen [facility] [address]-80 500 MG Orally every 6 hrs 1 capsule as needed Results No Known Results Summary Purpose eClinicalWorks Submission
--- OUTSIDE RECORDS SUMMARY | 2018-03-31 22:35 | XMS REPORT ---
Author Author Jimbo Christianson Organization [employer] Address Unknown Phone Unavailable Care Team Providers Care Assembly Machine Feeder Name Role Phone Jimbo Christianson CP Unavailable Allergies, Adverse Reactions, Alerts Substance Reaction Event Type morphine Info Not Available Drug Allergy Iodine Info Not Available Drug Allergy Adhesive Tape Rash Non Drug Allergy Problems Problem Type Condition Code Onset Dates Condition Status Assessment Bipolar disorder, current episode mixed, unspecified F31.60 Active Problem Bipolar disorder, current episode mixed, unspecified F31.60 Active Medications Medication Code System Code Instructions Start Date End Date Status Dosage Aspir-[address] [facility] [address]-55 81 MG Orally Once a day [address] [facility] [address]-75 25 MG Orally Twice a day 1 tablet Potassium Chloride [facility] [address]-81 10 MEQ Orally Once a day April 29, 2011 2 tablet Spiriva HandiHaler [facility] [address]-74 18 MCG Inhalation Once a day [address] HFA [facility] [address]-21 115-21 MCG/ACT Inhalation Twice a day 2 puffs Fluticasone Propionate (Inhal) [facility] [address]-82 50 MCG/BLIST Inhalation Twice a day 1 puff Oxycodone-Acetaminophen [facility] [address]-01 7.5-325 MG Orally every 6 hrs 1 tablet as needed Coreg [facility] [address]-63 25 MG Orally Twice a day [address] [facility] [address]-15 7.5-325 MG Orally tid prn pain 1 tablet as needed Acyclovir [facility] [address]-07 400 MG Orally Twice a day 1 tablet Polyethylene Glycol [facility] [address]-75 - not defined Benzonatate [facility] [address]-73 200 MG Orally Three times a day Sep 28, 2013 1 capsule as needed Lexapro [facility] [address]-60 10 mg Orally Once a day in AM April 15, [address] [facility] [address]-72 10 MG Orally Once a day 1 tablet Amiodarone HCl [facility] [address]-96 200 MG Orally Once a day [address] [facility] [address]-78 0.5 MG Orally Three times a day [address] [facility] [address]-06 1 MG Orally tid prn anxiety [address] [facility] [address]-43 1 % Transdermal not defined Procedures Procedure Coding System Code Date ESTAB PT LEVEL III CPT-4 75228 Jan 17, 2016 [facility]IS[facility] ESTABLISHED PATIENTS CPT-4 G0467 Jan 17, 2016 Vital Signs Date/Time: Jan 17, 2016 Temperature 97.9 F Weight w/c lbs Height w/c in Pain Scale 0 0-10 Blood Pressure Diastolic 78 mm Hg Blood Pressure Systolic 108 mm Hg Results No Known Results Summary Purpose eClinicalWorks Submission
--- OUTSIDE RECORDS SUMMARY | 2018-03-31 22:35 | XMS REPORT ---
Author Benjamin Samuels [facility] eClinicalWorks Address Unknown Phone Unavailable Care Team Providers Care Charge Coordinator Name Role Phone Benjamin Sierra Unavailable Allergies No Known Allergies Problems Problem Type Condition Code Onset Dates Condition Status Assessment Bipolar disorder, current episode mixed, unspecified F31.60 Active Problem Bipolar disorder, current episode mixed, unspecified F31.60 Active Medications Medication Code System Code Instructions Start Date End Date Status Dosage Daliresp [facility] [address]-48 500 MCG Orally Once a day [address] [facility] [address]356[address]846 28-0.8 MG Orally not defined Acetaminophen [facility] [address]-73 500 MG Orally every 6 hrs 1 capsule as needed Levothyroxine Sodium [facility] [address]-96 50 MCG TAKE ONE TABLET BY MOUTH EVERY MORNING FOR EMPTY STOMACH Fish Oil [facility] [address]-44 1000 MG Orally as directed Advair HFA [facility] [address]-70 115-21 MCG/ACT Inhalation Twice a day 2 puffs Aspir-[address] [facility] [address]-78 81 MG Orally Once a day [address] [facility] [address]-73 10 MG Inhalation qid 1 puff as needed Vitamin D [facility] [address]-24 1000 UNIT Orally Once a day [address] [facility] [address]-97 1 MG Orally tid prn anxiety [address] [facility] [address]-72 2.5 MG Orally Once a day [address] [facility] [address]-26 0.4 MG Sublingual every 8 hrs 1 tablet under the tongue Albuterol Sulfate A [facility] [address]-02 108 (90 Base) MCG/ACT Inhalation every 4 hrs 2 puffs as needed Albuterol Sulfate [facility] [address]-04 (2.5 MG/3ML) 0.083% Inhalation Three times a day Feb 25, [address] [facility] [address]-87 25 MG Orally at bedtime July 26, 2014 1 tablet Docusate Sodium [facility] [address]-77 100 MG Orally bid 1 capsule as needed Carvedilol [facility] [address]-05 25 MG Orally Twice a day Sep 28, 2013 1 tablet with food Spiriva HandiHaler [facility] [address]-28 18 MCG Inhalation Once a day [address] [facility] [address]-04 200 MG Orally Three times a day Sep 28, 2013 1 capsule as needed Percocet [facility] [address]-00 7.5-325 MG Orally tid prn pain 1 tablet as needed Norvasc [facility] [address]-90 5 MG Orally Once a day [address] [facility] [address]-79 25 MG Orally Twice a day [address] [facility] [address]-94 10 mg Orally Once a day in AM April 15, 2015 1/[address] [facility] [address]-21 20 MG Orally Once a day [address] [facility] [address]-83 25 MG Orally Twice a day 1 tablet Potassium Chloride [facility] [address]-12 10 MEQ Orally Once a day April 29, [address] [facility] [address]-57 80 MG Orally Once a day [address] [facility] [address]-56 40 mg Orally Once a day 1 tablet with a meal Results No Known Results Summary Purpose eClinicalWorks Submission
--- OUTSIDE RECORDS SUMMARY | 2018-03-31 22:35 | XMS REPORT ---
Author Author Jimbo Christianson [facility] Address [address] [place] [address] Care Team Providers Care Travel Writer Name Role Phone Jimbo Christianson Unavailable PROBLEMS Type Condition ICD9-CM Code QAB53-IS Code Onset Dates Condition Status SNOMED Code Problem Bipolar disorder, current episode mixed, unspecified F31.60 Active 53259794 ALLERGIES Unknown Allergies SOCIAL HISTORY No smoking Hx information available PLAN OF CARE VITAL SIGNS MEDICATIONS Unknown Medications RESULTS No Results PROCEDURES No Known procedures IMMUNIZATIONS No Known Immunizations
--- OUTSIDE RECORDS SUMMARY | 2018-03-31 22:35 | XMS REPORT ---
Author Benjamin Samuels [facility] eClinicalWorks Address Unknown Phone Unavailable Care Team Providers Care Head Loft Worker Name Role Phone Benjamin Sierra Unavailable Allergies No Known Allergies Problems Problem Type Condition Code Onset Dates Condition Status Assessment Bipolar disorder, current episode mixed, unspecified F31.60 Active Problem Bipolar disorder, current episode mixed, unspecified F31.60 Active Medications Medication Code System Code Instructions Start Date End Date Status Dosage Lexapro [facility] [address]-72 10 mg Orally Once a day in AM April 15, 2015 1/2 tablet Spironolactone [facility] [address]-75 25 MG Orally Twice a day 1 tablet [facility] 1987[address]-67514 28-0.8 MG Orally not defined Levothyroxine Sodium [facility] [address]-14 50 MCG TAKE ONE TABLET BY MOUTH EVERY MORNING FOR EMPTY STOMACH Aspir-81 [facility] [address]-92 81 MG Orally Once a day 1 tablet Omeprazole [facility] [address]-95 20 MG Orally Once a day 1 tablet Albuterol Sulfate [facility] [address]-41 (2.5 MG/3ML) 0.083% Inhalation Three times a day Feb 25, 2012 3 ml Docusate Sodium [facility] [address]-71 100 MG Orally bid 1 capsule as needed Daliresp [facility] [address]-21 500 MCG Orally Once a day 1 tablet Nitroglycerin [facility] [address]-19 0.4 MG Sublingual every 8 hrs 1 tablet under the tongue Spiriva HandiHaler [facility] [address]-20 18 MCG Inhalation Once a day 1 capsule Advair HFA [facility] [address]-19 115-21 MCG/ACT Inhalation Twice a day 2 puffs Norvasc [facility] [address]-32 5 MG Orally Once a day 1 tablet Albuterol Sulfate HFA [facility] [address]-19 108 (90 Base) MCG/ACT Inhalation every 4 hrs 2 puffs as needed Lamictal [facility] [address]-43 25 MG Orally at bedtime July 26, 2014 1 tablet Xanax [facility] [address]-77 1 MG Orally tid prn anxiety 1 tablet Vitamin D [facility] [address]-19 1000 UNIT Orally Once a day 1 tablet Carvedilol [facility] [address]-99 25 MG Orally Twice a day Sep 28, 2013 1 tablet with food Nicotrol [facility] [address]-17 10 MG Inhalation qid 1 puff as needed Benzonatate [facility] [address]-72 200 MG Orally Three times a day Sep 28, 2013 1 capsule as needed Acetaminophen [facility] [address]-21 500 MG Orally every 6 hrs 1 capsule as needed Fish Oil [facility] [address]-66 1000 MG Orally as directed Lisinopril [facility] [address]-26 2.5 MG Orally Once a day 1 tablet Percocet [facility] [address]-47 7.5-325 MG Orally tid prn pain 1 tablet as needed Lovastatin [facility] [address]-03 40 mg Orally Once a day 1 tablet with a meal Lasix [facility] [address]-00 80 MG Orally Once a day 1 tablet Potassium Chloride [facility] [address]-86 10 MEQ Orally Once a day April 29, 2011 2 tablet Coreg [facility] [address]-30 25 MG Orally Twice a day 1 tablet Procedures Procedure Coding System Code Date PSYTX PT&/FAMILY 45 MINUTES CPT-4 86858 Nov 05, 2015 [facility] VISIT MENTAL HEALTH ESTABLISHED PATIENT CPT-4 G0470 Nov 05, 2015 Results No Known Results Summary Purpose eClinicalWorks Submission
--- OUTSIDE RECORDS SUMMARY | 2018-03-31 22:35 | XMS REPORT ---
Author Author Jimbo Christianson [facility] eClinicalWorks Address Unknown Phone Unavailable Care Team Providers Care Road Oiler Name Role Phone Jimbo Christianson Unavailable Allergies No Known Allergies Problems Problem Type Condition Code Onset Dates Condition Status Assessment Bipolar disorder, current episode mixed, unspecified F31.60 Active Problem Bipolar disorder, current episode mixed, unspecified F31.60 Active Medications Medication Code System Code Instructions Start Date End Date Status Dosage Advair HFA [facility] [address]-97 115-21 MCG/ACT Inhalation Twice a day 2 puffs Spiriva HandiHaler [facility] [address]-76 18 MCG Inhalation Once a day [address] [facility] [address]-75 2.5 MG Orally Once a day [address] [facility] [address]-89 0.4 MG Sublingual every 8 hrs 1 tablet under the tongue Acetaminophen [facility] [address]-27 500 MG Orally every 6 hrs 1 capsule as needed Xanax [facility] [address]-17 0.5 MG Orally tid prn anxiety [address] [facility] [address]-26 1 MG Orally tid prn anxiety 1 tablet Aspir-[address] [facility] [address]-06 81 MG Orally Once a day [address] [facility] [address]-63 40 mg Orally Once a day 1 tablet with a meal Carvedilol [facility] [address]-78 25 MG Orally Twice a day Sep 28, 2013 1 tablet with food Nicotrol [facility] [address]-55 10 MG Inhalation qid 1 puff as needed Levothyroxine Sodium [facility] [address]-55 50 MCG TAKE ONE TABLET BY MOUTH EVERY MORNING FOR EMPTY STOMACH [facility] [address]93-[address]01 28-0.8 MG Orally not defined Lamictal [facility] [address]-75 25 MG Orally at bedtime July 26, 2014 1 tablet Albuterol Sulfate A [facility] [address]-44 108 (90 Base) MCG/ACT Inhalation every 4 hrs 2 puffs as needed Albuterol Sulfate [facility] [address]-75 (2.5 MG/3ML) 0.083% Inhalation Three times a day Feb 25, 2012 [address] [facility] [address]-58 25 MG Orally Twice a day 1 tablet Docusate Sodium [facility] [address]-94 100 MG Orally bid 1 capsule as needed Coreg [facility] [address]-21 25 MG Orally Twice a day 1 tablet Fish Oil [facility] [address]-13 1000 MG Orally as directed Lasix [facility] [address]-31 80 MG Orally Once a day [address] [facility] [address]-65 5 MG Orally Once a day [address] [facility] [address]-52 10 mg Orally Once a day in AM April 15, 2015 1/[address] [facility] [address]-86 20 MG Orally Once a day 1 tablet Potassium Chloride [facility] [address]-82 10 MEQ Orally Once a day April 29, [address] [facility] [address]-38 500 MCG Orally Once a day [address] [facility] [address]-72 7.5-325 MG Orally tid prn pain 1 tablet as needed Vitamin D [facility] [address]-87 1000 UNIT Orally Once a day [address] [facility] [address]-47 200 MG Orally Three times a day Sep 28, 2013 1 capsule as needed Procedures Procedure Coding System Code Date ESTAB PT LEVEL IV CPT-4 10868 Nov 05, 2015 [facility] VISIT ESTABLISHED PATIENTS CPT-4 G0467 Nov 05, 2015 Vital Signs Date/Time: Nov 05, 2015 Temperature 97.9 F Weight wc lbs Height wc in Pain Scale 0 0-10 Blood Pressure Diastolic 83 mm Hg Blood Pressure Systolic 135 mm Hg Results No Known Results Summary Purpose eClinicalWorks Submission
--- OUTSIDE RECORDS SUMMARY | 2018-03-31 22:35 | XMS REPORT ---
Author Author Jimbo Christianson Organization [facility] Address [address] [place] [address] Care Team Providers Care Special Events Director Name Role Phone Jimbo Christianson Unavailable PROBLEMS Type Condition ICD9-CM Code EXJ02-IV Code Onset Dates Condition Status SNOMED Code Problem Chronic apical periodontitis K04.5 Active 1575652 Problem Gingivitis K05.10 Active 91717202 Problem 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 F41.1 Active 36908572 Problem Bipolar disorder, current episode mixed, unspecified F31.60 Active 06305372 ALLERGIES Substance Reaction Event Type Date Status morphine Unknown Drug Allergy Mar, Active Iodine Unknown Drug Allergy Mar, Active Adhesive Tape Rash Non Drug Allergy Mar, Active ENCOUNTERS Encounter Location Date Diagnosis [facility] [address] [place] [id number] [place] [phone] June, [facility] [address] [place] [phone] Mar, 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 F41.1 [facility] [address] [place] [id number] [place] [address] Mar, [facility] [address] [place] [id number] [place] [phone] Dec, 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 F41.1 Optometry [address] [place] [id number] Oct, Dental [id number] [place] [id number] Oct, Encounter for dental examination Z01.20 ; Dental caries extending into dentin K02.62 ; Chronic apical periodontitis K04.5 ; Periodontosis K05.4 and Gingivitis K05.10 Outpatient Adult [address] [place] [address] Oct, [facility] [address] [place] [phone] Sep, 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 F41.1 Outpatient Adult [address] [place] [address] May, [facility] [address] [place] [id number] [place] [phone] May, Bipolar disorder, current episode mixed, unspecified F31.60 [facility] [address] [place] [id number] [place] [phone] Feb, [facility] [address] [place] [id number] [place] [phone] Jan, Bipolar disorder, current episode mixed, unspecified F31.60 Outpatient Adult [address] [place] [address] Jan, Bipolar disorder, current episode mixed, unspecified F31.60 Outpatient Adult [address] [place] [address] Dec, Bipolar disorder, current episode mixed, unspecified F31.60 Outpatient Adult [address] [place] [address] Nov, Bipolar disorder, current episode mixed, unspecified F31.60 [facility] [address] [place] [phone] Nov, [facility] [address] [place] [id number] [place] [phone] Oct, Bipolar disorder, current episode mixed, unspecified F31.60 Outpatient Adult [address] [place] [address] Oct, Bipolar disorder, current episode mixed, unspecified F31.60 Outpatient Adult [address] [place] [address] Sep, Bipolar disorder, current episode mixed, unspecified F31.60 [facility] [address] [id number] [address] Apr, Bipolar disorder, current episode mixed, unspecified F31.60 [facility] [address] [id number] [address] Apr, Intake Services [address] [place] [address] Apr, [facility] [address] [place] [address] Apr, Bipolar disorder, current episode mixed, unspecified F31.60 and Anxiety F41.9 Outpatient Adult [address] [place] [address] Apr, Bipolar disorder, current episode mixed, unspecified F31.60 and Post- traumatic stress disorder, chronic F43.12 Outpatient Adult [address] [place] [address] Feb, Bipolar disorder, current episode mixed, unspecified F31.60 and Post- traumatic stress disorder, chronic F43.12 Outpatient Adult [address] [place] [address] Sep, Bipolar affective, mixed 296.60 and Posttraumatic stress disorder 309.81 [facility] [address] [place] [id number] [place] [phone] Sep, Bipolar affective, mixed 296.60 and Anxiety disorder 300.00 [facility] [address] [place] [id number] [place] [address] Jul, Bipolar affective, mixed 296.60 and Anxiety disorder 300.00 Outpatient Adult [address] [place] [address] June, Posttraumatic stress disorder 309.81 and Bipolar affective, mixed 296.60 [facility] [address] [place] [id number] [place] [phone] June, Outpatient Adult [address] [place] [address] June, Bipolar affective, mixed 296.60 and Posttraumatic stress disorder 309.81 [facility] Outpatient [facility] [place] [address] Jan, Bipolar affective, mixed 296.60 and Posttraumatic stress disorder 309.81 N [address] [place] [id number] [place] [address] Jan, Bipolar affective, mixed 296.60 and Posttraumatic stress disorder 309.[address] [address] Dec, Bipolar affective, mixed 296.60 and Posttraumatic stress disorder 309.81 [facility] Outpatient [address] [address] Nov, Bipolar affective, mixed 296.60 and Posttraumatic stress disorder 309.[address] [id number] [id number] Nov, Cardiomyopathy 425.4 ; Bipolar affective, mixed 296.60 ; COPD (chronic obstructive pulmonary disease) 496 and Chronic back pain greater than 3 months duration 724.[address] [id number] [id number] Oct, [facility] Outpatient [address] [address] Oct, Bipolar affective, mixed 296.60 and Posttraumatic stress disorder 309.81 [facility] [address] [place] [id number] [place] [address] [phone] Sep, Bipolar affective, mixed 296.60 and Posttraumatic stress disorder 309.81 Outpatient Adult [address] [place] [address] Sep, Bipolar affective, mixed 296.60 and Posttraumatic stress disorder 309.81 [facility] Outpatient [address] [address] June, Bipolar affective, mixed 296.60 and Posttraumatic stress disorder 309.81 [facility] Psych [id number] [address] Apr, Bipolar affective, mixed 296.60 ; Posttraumatic stress disorder 309.81 and Insomnia, unspecified 780.52 Outpatient Adult [address] [place] [address] Dec, Bipolar affective, mixed 296.60 and Posttraumatic stress disorder 309.81 [facility] [address] [place] [id number] [place] [address] Nov, Bipolar affective, mixed 296.60 ; Posttraumatic stress disorder 309.81 ; Hypertension 401.9 ; Hyperlipidemia (Unspecified) 272.4 ; Coronary atherosclerosis due to calcified coronary lesion 414.4 ; Asthma, unspecified, unspecified status 493.90 ; Chronic pain syndrome 338.4 ; Hypothyroidism (unspecified) 244.9 ; Insomnia, unspecified 780.52 and tobacco use disorder 305.1 [facility] [address] [place] [id number] Nov, [facility] [address] [place] [id number] Nov, Presbyopia 367.4 [facility] [address] [place], [place] [address] [address] Nov, [facility] [address] [place] [id number] Nov, Outpatient Adult [address] [place] [address] Oct, Bipolar affective, mixed 296.60 and Posttraumatic stress disorder 309.81 [facility] [address] [place] [id number] [place] [address] Sep, Bipolar affective, mixed 296.60 ; Posttraumatic stress disorder 309.81 ; Hypertension 401.9 ; Hyperlipidemia (Unspecified) 272.4 ; Coronary atherosclerosis due to calcified coronary lesion 414.4 ; Asthma, unspecified, unspecified status 493.90 ; Chronic pain syndrome 338.4 ; Hypothyroidism (unspecified) 244.9 ; Insomnia, unspecified 780.52 and tobacco use disorder 305.1 [facility] Psych [id number] [address] May, Bipolar affective, mixed 296.60 ; Posttraumatic stress disorder 309.81 ; Hypertension 401.9 ; Hyperlipidemia (Unspecified) 272.4 ; Coronary atherosclerosis due to calcified coronary lesion 414.4 ; Asthma, unspecified, unspecified status 493.90 ; Chronic pain syndrome 338.4 ; Hypothyroidism ( unspecified) 244.9 ; Insomnia, unspecified 780.52 ; tobacco use disorder 305.1 and Bipolar I disorder, most recent episode (or current) mixed, unspecified 296.60 [facility] Outpatient [address] [address] May, Bipolar affective, mixed 296.60 and Posttraumatic stress disorder 309.81 [facility] Outpatient [address] [address] Apr, Bipolar I disorder, most recent episode (or current) mixed, unspecified 296.60 [facility] [address] [place] [id number] Mar, [place] [id number] [place] [address] Feb, Bipolar affective, mixed 296.60 ; Posttraumatic stress disorder 309.81 ; Hypertension 401.9 ; Hyperlipidemia (Unspecified) 272.4 ; Coronary atherosclerosis due to calcified coronary lesion 414.4 ; Asthma, unspecified, unspecified status 493.90 ; Chronic pain syndrome 338.4 ; Hypothyroidism ( unspecified) 244.9 ; Insomnia, unspecified 780.52 and tobacco use disorder 305.[address] [place] [address] [id number] Feb, Pneumonia 486 [facility] Outpatient [address] [address] Sep, Bipolar I disorder, most recent episode (or current) mixed, unspecified 296.60 [place] [id number] [place] [id number] Sep, Hyperlipidemia (Unspecified) 272.4 and Congestive heart failure 428.0 [place] [id number] [place] [address] [id number] Aug, [facility] Psych [address] [address] Aug, Bipolar affective, mixed 296.60 ; Posttraumatic stress disorder 309.81 ; Hypertension 401.9 ; Hyperlipidemia (Unspecified) 272.4 ; Coronary atherosclerosis due to calcified coronary lesion 414.4 ; Asthma, unspecified, unspecified status 493.90 ; Chronic pain syndrome 338.4 ; Hypothyroidism ( unspecified) 244.9 ; Insomnia, unspecified 780.52 and tobacco use disorder 305.[address] [place] [id number] Aug, [facility] Outpatient [address] [address] Aug, Major depressive disorder, recurrent episode, moderate 296.[id number] [place] [address] [id number] Aug, Chronic pain syndrome 338.4 ; Asthma, unspecified, unspecified status 493.90 ; Hypothyroidism (unspecified) 244.9 ; Renal failure 586 ; Hyperlipidemia (Unspecified) 272.4 and Screening for HIV (human immunodeficiency virus) V73.89 [facility] [id number] [place] [phone] Jul, Major depressive disorder, recurrent episode, moderate 296.32 Outpatient Adult [address] [place] [address] Jul, Major depressive disorder, recurrent episode, moderate 296.32 Outpatient Adult [address] [place] [address] Jul, Major depressive disorder, recurrent episode, moderate 296.32 [facility] [id number] [place] [phone] Jul, Bipolar affective disorder, currently depressed, moderate 296.52 [facility] Psych [address] [place] [address] June, Depressive disorder, not elsewhere classified 311 [...] moderate 296.32 and Posttraumatic stress disorder 309.81 [place] [id number] [place] [address] [id number] June, [facility] Outpatient [address] [address] June, Major depressive disorder, recurrent episode, moderate 296.32 [place] [id number] [place] [address] [id number] June, Chronic pain syndrome 338.4 [facility] [address] [place] [address] [id number] May, [facility] Outpatient [address] [address] May, Major depressive disorder, recurrent episode, moderate 296.32 and Posttraumatic stress disorder 309.81 [place] [id number] [place] [address] [id number] May, HIV (human immunodeficiency virus infection) V08 ; Hyperlipidemia ( Unspecified) 272.4 and Chronic pain syndrome 338.4 [place] [id number] [place] [address] [id number] Apr, Chronic pain syndrome 338.4 ; Hypertension 401.9 ; Human immunodeficiency virus [HIV] 042 and Asthma, unspecified, unspecified status 493.90 [facility] Outpatient [address] [address] Apr, Major depressive disorder, recurrent episode, moderate 296.32 [address] [place] [id number] [place] [address] [id number] Apr, [address] [place] [address] [id number] Mar, HIV (human immunodeficiency virus infection) V08 [place] [id number] [place] [address] [id number] Mar, [place] [id number] [place] [address] Mar, Anxiety state, unspecified 300.[address] [id number] Mar, Lumbago 724.2 ; Other dyspnea and respiratory abnormalities 786.09 ; Hypothyroidism (unspecified) 244.9 ; Esophageal reflux 530.81 ; Hypertension 401.9 ; Hyperlipidemia (Unspecified) 272.4 and Screening for unspecified condition V82.9 [address] [place] [id number] [place] [address] [id number] Feb, [address] [id number] Feb, Lumbago 724.[address] [id number] Feb, [address] [id number] Feb, [address] [id number] Jan, Lumbago 724.2 and Other dyspnea and respiratory abnormalities 786.09 [facility] Outpatient [address] [address] Dec, Major depressive disorder, recurrent episode, moderate 296.32 and Posttraumatic stress disorder 309.[address] [place] [address] [id number] Dec, Lumbago 724.2 ; Esophageal reflux 530.81 and Hypothyroidism (unspecified) 244.9 [facility] Psych [address] [place] [id number] [place] [address] Dec, Anxiety state, unspecified 300.[address] [place] [address] Nov, Anxiety state, unspecified 300.00 [id number] [id number] Nov, Lumbago 724.2 [facility] Outpatient [address] [address] Oct, Major depressive disorder, recurrent episode, moderate 296.32 and Posttraumatic stress disorder 309.[address] [id number] [id number] Oct, [id number] [place] [address] [id number] Sep, [id number] [place] [address] [id number] Sep, Lumbago 724.2 ; Unspecified urinary incontinence 788.30 and Obstructive sleep apnea (adult) (pediatric) 327.23 [facility] Outpatient [address] [address] Sep, Major depressive disorder, recurrent episode, moderate 296.32 and Posttraumatic stress disorder 309.[id number] [place] [address] [id number] Sep, [id number] [place] [address] [id number] Sep, [id number] [place] [id number] Aug, [id number] [place] [address] Jul, Bipolar I disorder, most recent episode (or current) mixed, unspecified 296.60 and Anxiety state, unspecified 300.00 [facility] Outpatient [address] [address] Jul, Major depressive disorder, recurrent episode, moderate 296.32 and Posttraumatic stress disorder 309.[id number] [place] [address] [id number] Jul, Lumbago 724.2 ; Personal history of tobacco use, presenting hazards to health V15.82 ; Memory loss 780.93 and Obstructive sleep apnea (adult) ( pediatric) 327.[address] [id number] [id number] Jul, [id number] [place] [address] [id number] Jul, [address] [id number] June, [address] [place] [address] [id number] June, [place] [id number] [place] [address] [id number] June, Cough 786.2 [facility] Psych [address] [address] June, Anxiety state, unspecified 300.00 [facility] Outpatient [address] [address] May, Major depressive disorder, recurrent episode, moderate 296.32 and Posttraumatic stress disorder 309.81 [address] [place] [id number] [place] [address] [id number] May, Lumbago 724.2 and Other dyspnea and respiratory abnormalities 786.09 [facility] Dental [address] [place] [id number] [place] [address] [id number] May, Unspecified dental caries 521.00 [facility] Outpatient [address] [address] Mar, Major depressive disorder, recurrent episode, moderate 296.32 and Posttraumatic stress disorder 309.81 [facility] Dental [address] [place] [id number] [place] [address] [id number] Mar, Unspecified dental caries 521.00 and Other specified periodontal diseases 523.[address] [place] [address] [id number] Mar, Backache (Unspecified) 724.5 and Wheezing 786.07 [facility] Outpatient [address] [address] Mar, Major depressive disorder, recurrent episode, moderate 296.32 and Posttraumatic stress disorder 309.81 [facility] Outpatient [address] [address] Feb, Major depressive disorder, recurrent episode, moderate 296.32 and Posttraumatic stress disorder 309.81 [facility] [address] [address] Feb, Major depressive disorder, recurrent episode, moderate 296.32 and 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 300.02 Outpatient Adult [address] [place] [address] Feb, Major depressive disorder, recurrent episode, moderate 296.32 and Posttraumatic stress disorder 309.81 [facility] Outpatient [address] [place] [address] Feb, Major depressive disorder, recurrent episode, moderate 296.32 and Posttraumatic stress disorder 309.81 [facility] Dental [address] [facility] [id number] [id number] Feb, Dental examination V72.2 and Periodontosis 523.5 [facility] [address] [facility] [id number] [id number] Feb, Lumbago 724.2 ; Esophageal reflux 530.81 ; Unspecified urinary incontinence 788.30 ; Constipation (Unspecified) 564.00 ; Other dyspnea and respiratory abnormalities 786.09 and Hypothyroidism (unspecified) 244.9 Outpatient Adult [address] [place] [address] Feb, Outpatient Adult [address] [place] [address] Feb, Major depressive disorder, recurrent episode, moderate 296.32 and Posttraumatic stress disorder 309.81 Outpatient Children [address] [place] [address] Feb, Major depressive disorder, recurrent episode, moderate 296.32 and Posttraumatic stress disorder 309.81 [facility] [address] [place], [place] [id number] Feb, IMMUNIZATIONS No Known Immunizations SOCIAL HISTORY Never Assessed REASON FOR VISIT Med ck, follow-up for generalized anxiety disorder PLAN OF CARE Activity Details Follow Up 3 Months Reason: VITAL SIGNS Height 66 in 2017-04-06 Weight w/c lbs 2017-04-06 Temperature 98.4 degrees Fahrenheit 2017-04-06 Blood pressure systolic 119 mm Hg 2017-04-06 Blood pressure diastolic 59 mm Hg 2017-04-06 MEDICATIONS Medication Instructions Dosage Frequency Start Date End Date Duration Status Albuterol Sulfate (2.5 MG/3ML) 0.083% Inhalation Three times a day 3 ml 8h Feb, Active Senna 8.6 MG Orally Once a day 2 tablets at bedtime as needed 24h Active Aspir-81 81 MG Orally Once a day 1 tablet 24h Active Docusate Sodium 100 MG Orally bid 1 capsule as needed 12h Active Spironolactone 25 MG Orally Twice a day 1 tablet 12h Active Acetaminophen 500 MG Orally every 6 hrs 1 capsule as needed 6h Active Vitamin D 1000 UNIT Orally Once a day 1 tablet 24h 30 day(s) Active Acyclovir 400 MG Orally Twice a day 1 tablet 12h Active Omeprazole 20 MG Orally Once a day 1 tablet 24h 30 days Active Daliresp 500 MCG Orally Once a day 1 tablet 24h Active Albuterol Sulfate HFA 108 (90 Base) MCG/ACT Inhalation every 4 hrs 2 puffs as needed 4h Active Nitroglycerin 0.4 MG Sublingual every 8 hrs 1 tablet under the tongue 8h Active Voltaren 1 % Active Advair HFA 115-21 MCG/ACT Inhalation Twice a day 2 puffs 12h Active Levothyroxine Sodium 25 MCG TAKE ONE TABLET BY MOUTH EVERY MORNING FOR EMPTY STOMACH Active Valsartan 40 MG Orally Twice a day 1 tablet 12h Active 28-0.8 MG Active Eliquis 5 MG Active Norvasc 5 MG Orally Once a day 1 tablet 24h 30 days Active Benzonatate 200 MG Orally Three times a day 1 capsule as needed 8h Sep, Active Xanax 0.5 MG Orally Three times a day 1 tablet 8h 30 days Active Torsemide 10 MG Orally Once a day 1 tablet 24h Active Entresto 24-26 MG Orally Twice a day 1 tablet 12h Active Promethazine HCl Active Spiriva HandiHaler 18 MCG Inhalation Once a day 1 capsule 24h Active Fluticasone Propionate (Inhal) 50 MCG/BLIST Inhalation Twice a day 1 puff 12h Active Coreg 6.25 MG Orally Twice a day 1 tablet 12h Active Nicotrol 10 MG Inhalation qid 1 puff as needed 6h Active oxyCODONE-Acetaminophen 7.5-325 MG Orally every 6 hrs 1 tablet as needed 6h Active Lexapro 10 mg Orally Once a day in AM 1 tablet Apr, 30 day(s ) Active Lovastatin 40 mg Orally Once a day 1 tablet with a meal 24h Active Percocet 7.5-325 MG Orally tid prn pain 1 tablet as needed 30 days Active Lasix 80 MG Orally Once a day 1 tablet 24h Active RESULTS No Results PROCEDURES No Known [...] 10/2014 Surgical History trach 09/2014 Hospitalization History [place], [place] 09/2014
--- OUTSIDE RECORDS SUMMARY | 2018-03-31 22:36 | XMS REPORT ---
Author Author Benjamin Sierra Organization [employer] Address Unknown Phone Unavailable Care Team Providers Care Nursery Hand Name Role Phone Benjamin Sierra CP Unavailable Allergies No Known Allergies Problems Problem Type Condition Code Onset Dates Condition Status Assessment Bipolar disorder, current episode mixed, unspecified F31.60 Active Problem Bipolar disorder, current episode mixed, unspecified F31.60 Active Medications Medication Code System Code Instructions Start Date End Date Status Dosage Aspir-81 [facility] [address]-69 81 MG Orally Once a day 1 tablet Spiriva HandiHaler [facility] [address]-22 18 MCG Inhalation Once a day 1 capsule Benzonatate [facility] [address]-93 200 MG Orally Three times a day Sep 28, 2013 1 capsule as needed Spironolactone [facility] [address]-92 25 MG Orally Twice a day 1 tablet Xanax [facility] [address]-27 1 MG Orally tid prn anxiety 1 tablet Percocet [facility] [address]-79 7.5-325 MG Orally tid prn pain 1 tablet as needed Potassium Chloride [facility] [address]-11 10 MEQ Orally Once a day April 29, 2011 2 tablet Coreg [facility] [address]-36 25 MG Orally Twice a day 1 tablet Advair HFA [facility] [address]-74 115-21 MCG/ACT Inhalation Twice a day 2 puffs Xanax [facility] [address]-68 0.5 MG Orally tid prn anxiety 1 tablet Procedures Procedure Coding System Code Date PSYTX PT&/FAMILY 45 MINUTES CPT-4 42310 Jan 07, 2016 [facility] VISIT MENTAL HEALTH ESTABLISHED PATIENT CPT-4 G0470 Jan 07, 2016 Results No Known Results Summary Purpose [employer] Submission
--- OUTSIDE RECORDS SUMMARY | 2018-03-31 22:36 | XMS REPORT ---
Author Ezekiel Hernandez eClinical[employer] Address Unknown Phone Unavailable Care Team Providers Care Swager Operator Name Role Phone Ezekiel Casper CP Unavailable Allergies, Adverse Reactions, Alerts Substance Reaction Event Type morphine Info Not Available Non Drug Allergy Iodine Info Not Available Drug Allergy Problems Problem Type Condition ICD-9 Code Onset Dates Condition Status Assessment Posttraumatic stress disorder 309.81 Active Assessment Insomnia, unspecified 780.52 Active Assessment Bipolar affective, mixed 296.60 Active Problem Bipolar affective, mixed 296.60 Active Problem Posttraumatic stress disorder 309.81 Active Medications Medication Code System Code Instructions Start Date End Date Status Dosage Acyclovir [facility] [address]-72 400 MG Orally Three times a day Active 1 tablet Percocet [facility] [address]-36 7.5-325 MG Orally tid prn pain Active 1 tablet as needed Coreg [facility] [address]-10 25 mg Orally Twice a day Active 1/2 tablet Lisinopril [facility] [address]-52 20 MG Orally Once a day Active 1 tablet Diflucan [facility] [address]-04 200 MG Orally Once a day August 19, 2011 Active 1 tablet Levothyroxine Sodium [facility] [address]-38 50 MCG Active TAKE ONE TABLET BY MOUTH EVERY MORNING FOR EMPTY STOMACH PredniSONE [facility] [address]-20 20 mg Orally Once a day Feb 25, 2012 Active 1 tablet with food or milk Omeprazole [facility] [address]-69 20 MG Orally Once a day Active 1 tablet Fish Oil [facility] [address]-46 1000 MG Orally Active as directed Seroquel [facility] [address]-68 50 mg Orally at bedtime Dec 08, 2012 Active 1 tablet Celebrex [facility] [address]-86 200 MG Orally Once a day August 18, 2011 Active 1 capsule Lovastatin [facility] [address]-45 40 mg Orally Once a day Active 1 tablet with a meal Albuterol Sulfate [facility] [address]-54 (2.5 MG/3ML) 0.083% Inhalation Three times a day Feb 25, 2012 Active 3 ml Levofloxacin [facility] [address]-50 750 MG Orally Once a day Feb 25, 2012 Active 1 tablet Spironolactone [facility] [address]-38 25 MG Orally Twice a day Active 1 tablet Norvasc [facility] [address]-93 5 MG Orally Once a day Active 1 tablet Levalbuterol HCl [facility] [address]-97 0.63 MG/3ML Inhalation Three times a day August 18, 2011 Active 3 ml Ipratropium [place] [facility] [address]-30 0.02 % Inhalation Twice a day Feb Active 1 vial Nitroglycerin [facility] [address]-16 0.4 MG Sublingual every 8 hrs Active 1 tablet under the tongue Albuterol Sulfate HFA [facility] [address]-25 108 (90 Base) MCG/ACT Inhalation every 4 hrs Active 2 puffs as needed Aspir-81 [facility] [address]-69 81 MG Orally Once a day Active 1 tablet Spiriva HandiHaler [facility] [address]-55 18 MCG Inhalation Once a day Active 1 capsule Vitamin D [facility] [address]-17 1000 UNIT Orally Once a day Active 1 tablet Dulcolax [facility] 58903-95814 5 MG Orally Once a day Active 1 tablet as needed for constipation Potassium Chloride [facility] [address]-59 10 MEQ Orally Once a day April 29, 2011 Active 2 tablet Xanax [facility] [address]-50 1 MG Orally tid prn agitation Active 1 tablet Acetaminophen [facility] [address]-08 500 MG Orally every 6 hrs Active 1 capsule as needed Lasix [facility] [address]-02 80 mg Orally Once a day Active 1 tablet Procedures Procedure Coding System Code Date ESTABPT LEVEL III CPT-4 33591 May 04, 2013 Results No Known Results Summary Purpose eClinicalWorks Submission
--- OUTSIDE RECORDS SUMMARY | 2018-03-31 22:36 | XMS REPORT ---
Author Author Benjamin [facility] Outpatient Address [address], [place] [id number] Care Team Providers Care Direct Service Worker Name Role Phone [place], Benjamin Unavailable PROBLEMS Type Condition ICD9-CM Code [id number] Code Onset Dates Condition Status SNOMED Code Problem Bipolar disorder, current episode mixed, unspecified F31.60 Active 87356242 Assessment Bipolar disorder, current episode mixed, unspecified F31.60 Jan, Active [id number] ALLERGIES Unknown Allergies SOCIAL HISTORY No smoking Hx information available PLAN OF CARE VITAL SIGNS MEDICATIONS Medication Instructions Dosage Frequency Start Date End Date Duration Status Spiriva HandiHaler 18 MCG Inhalation Once a day 1 capsule 24h Active Coreg 25 MG Orally Twice a day 1 tablet 12h Active Advair HFA 115-21 MCG/ACT Inhalation Twice a day 2 puffs 12h Active Spironolactone 25 MG Orally Twice a day 1 tablet 12h Active Aspir-81 81 MG Orally Once a day 1 tablet 24h Active Percocet 7.5-325 MG Orally tid prn pain 1 tablet as needed 30 days Active Benzonatate 200 MG Orally Three times a day 1 capsule as needed 8h Sep, Active Potassium Chloride 10 MEQ Orally Once a day 2 tablet 24h Apr, Active Xanax 1 MG Orally tid prn anxiety 1 tablet 30 days Active Xanax 0.5 MG Orally tid prn anxiety 1 tablet 30 days Active RESULTS No Results PROCEDURES Procedure Date Ordered Related Diagnosis Body Site [facility] VISIT MENTAL HEALTH ESTABLISHED PATIENT Jan 17, 2016 PSYTX PT&/FAMILY 45 MINUTES Jan 17, 2016 IMMUNIZATIONS No Known Immunizations
--- NOTE | 2018-03-31 22:41 | ED Dyspnea ---
General Stated Complaint: SOA Source of Information: Patient, EMS History of Present Illness Date Seen by Provider: Mar 31, 2018 Time Seen by Provider: 22:28 Timing/Duration: 1 Hour Severity: Moderate Associated Symptoms: Chest Pain The patient is 62-year-old female who presents to emergency department via EMS for evaluation of shortness of breath. She has a history of cardiomyopathy, pulmonary edema/CHF, and COPD. She has a pacemaker/defibrillator. She tells me that she usually gets transferred to [facility] when she comes here with similar symptoms. She is also complaining of some chest pain. The rhythm strip with EMS was concerning for a STEMI however the EKG performed upon arrival does not show a STEMI and does appear to be similar to previous ECG on 02/02/18. She is alert and oriented 4, somewhat anxious,and appears to be in no distress. She states that her shortness of breath started approximately 1 hour prior to arrival. The chest pain she has been having his left-sided, nonradiating, and constant. There is also some discomfort in the left side of her back. Allergies and Home Medications Allergies Coded Allergies: albuterol (Verified Allergy, Severe, 03/31/18) Heart Racing morphine (Verified Allergy, Mild, 03/31/18) Nausea Vomiting Uncoded Allergies: IVP DYE (Allergy, Unknown, 03/31/18) PLASTIC TAPE (Allergy, Unknown, 03/31/18) Patient Home Medication List Home Medication List Reviewed: Yes Review of Systems Review of Systems Constitutional: no symptoms reported EENTM: no symptoms reported Respiratory: short of breath Cardiovascular: chest pain Gastrointestinal: no symptoms reported Genitourinary: no symptoms reported Musculoskeletal: no symptoms reported Skin: no symptoms reported Psychiatric/Neurological: No Symptoms Reported Endocrine: No Symptoms Reported Hematologic/Lymphatic: No Symptoms Reported All Other Systems Reviewed Negative Unless Noted: Yes Physical Exam Vital Signs Vital Signs - First Documented 03/31/18 22:27 Temp 97.1 Pulse 112 Resp 26 B/P (MAP) 152/102 (119) Pulse Ox 100 O2 Delivery Nasal Cannula O2 Flow Rate 2.00 Capillary Refill : Height, Weight, BMI Height: '" Weight: lbs. oz. kg; BMI Method: General Appearance: WD/WN, Moderate Distress HEENT: PERRL/EOMI, TMs Normal Neck: Full Range of Motion, Normal Inspection, Supple Respiratory: Rales, Respiratory Distress (moderate) Cardiovascular: Regular Rate, Rhythm, No Gallop, No JVD Gastrointestinal: Normal Bowel Sounds, No Organomegaly, No Pulsatile Mass, Non Tender Neurologic/Psychiatric: Alert, Oriented x3, No Motor/Sensory Deficits, Normal Mood/Affect Skin: Normal Color, Warm/Dry Progress/Results/Core Measures Results/Orders Lab Results Laboratory Tests Test 03/31/18 22:32 03/31/18 23:30 04/01/18 00:00 Range/Units White Blood Count 11.3 H 4.3-11.0 10^3/uL Red Blood Count 4.90 4.35-5.85 10^6/uL Hemoglobin 12.7 11.5-16.0 G/DL Hematocrit 41 35-52 % Mean Corpuscular Volume 84 80-99 FL Mean Corpuscular Hemoglobin 26 25-34 PG Mean Corpuscular Hemoglobin Concent 31 L 32-36 G/DL Red Cell Distribution Width 15.3 H 10.0-14.5 % Platelet Count 164 130-400 10^3/uL Mean Platelet Volume 10.6 H 7.4-10.4 FL Neutrophils (%) (Auto) 68 42-75 % Lymphocytes (%) (Auto) 23 12-44 % Monocytes (%) (Auto) 8 0-12 % Eosinophils (%) (Auto) 1 0-10 % Basophils (%) (Auto) 0 0-10 % Neutrophils # (Auto) 7.7 1.8-7.8 X 10^3 Lymphocytes # (Auto) 2.6 1.0-4.0 X 10^3 Monocytes # (Auto) 0.9 0.0-1.0 X 10^3 Eosinophils # (Auto) 0.1 0.0-0.3 10^3/uL Basophils # (Auto) 0.0 0.0-0.1 10^3/uL Sodium Level 138 135-145 MMOL/L Potassium Level 4.0 3.6-5.0 MMOL/L Chloride Level 101 98-107 MMOL/L Carbon Dioxide Level 22 21-32 MMOL/L Anion Gap 15 H 5-14 MMOL/L Blood Urea Nitrogen 14 7-18 MG/DL Creatinine 1.00 0.60-1.30 MG/DL Estimat Glomerular Filtration Rate > 60 BUN/Creatinine Ratio 14 Glucose Level 137 H 70-105 MG/DL Calcium Level 9.2 8.5-10.1 MG/DL Corrected Calcium 9.4 8.5-10.1 MG/DL Magnesium Level 1.7 L 1.8-2.4 MG/DL Total Bilirubin 0.2 0.1-1.0 MG/DL Aspartate Amino Transf (AST/SGOT) 12 5-34 U/L Alanine Aminotransferase (ALT/SGPT) 10 0-55 U/L Alkaline Phosphatase 125 40-136 U/L Troponin T 16 H <=10 NG/L Total Protein 6.4 6.4-8.2 GM/DL Albumin 3.8 3.2-4.5 GM/DL Urine Color YELLOW Urine Clarity CLEAR Urine pH 6.0 5-9 Urine Specific [place] 1.010 L 1.016-1.022 Urine Protein NEGATIVE NEGATIVE Urine Glucose (UA) NEGATIVE NEGATIVE Urine Ketones NEGATIVE NEGATIVE Urine Nitrite NEGATIVE NEGATIVE Urine Bilirubin NEGATIVE NEGATIVE Urine Urobilinogen 0.2 NORMAL MG/DL Urine Leukocyte Esterase NEGATIVE NEGATIVE Urine RBC (Auto) NEGATIVE NEGATIVE Urine RBC NONE /HPF Urine WBC 0-2 /HPF Urine Squamous Epithelial Cells 0-2 /HPF Urine Crystals NONE /LPF Urine Bacteria NEGATIVE /HPF Urine Casts NONE /LPF Urine Mucus MODERATE H /LPF Urine Culture Indicated NO Laboratory Tests Test 03/31/18 22:32 03/31/18 23:30 04/01/18 00:00 Range/Units White Blood Count 11.3 H 4.3-11.0 10^3/uL Red Blood Count 4.90 4.35-5.85 10^6/uL Hemoglobin 12.7 11.5-16.0 G/DL Hematocrit 41 35-52 % Mean Corpuscular Volume 84 80-99 FL Mean Corpuscular Hemoglobin 26 25-34 PG Mean Corpuscular Hemoglobin Concent 31 L 32-36 G/DL Red Cell Distribution Width 15.3 H 10.0-14.5 % Platelet Count 164 130-400 10^3/uL Mean Platelet Volume 10.6 H 7.4-10.4 FL Neutrophils (%) (Auto) 68 42-75 % Lymphocytes (%) (Auto) 23 12-44 % Monocytes (%) (Auto) 8 0-12 % Eosinophils (%) (Auto) 1 0-10 % Basophils (%) (Auto) 0 0-10 % Neutrophils # (Auto) 7.7 1.8-7.8 X 10^3 Lymphocytes # (Auto) 2.6 1.0-4.0 X 10^3 Monocytes # (Auto) 0.9 0.0-1.0 X 10^3 Eosinophils # (Auto) 0.1 0.0-0.3 10^3/uL Basophils # (Auto) 0.0 0.0-0.1 10^3/uL Sodium Level 138 135-145 MMOL/L Potassium Level 4.0 3.6-5.0 MMOL/L Chloride Level 101 98-107 MMOL/L Carbon Dioxide Level 22 21-32 MMOL/L Anion Gap 15 H 5-14 MMOL/L Blood Urea Nitrogen 14 7-18 MG/DL Creatinine 1.00 0.60-1.30 MG/DL Estimat Glomerular Filtration Rate > 60 BUN/Creatinine Ratio 14 Glucose Level 137 H 70-105 MG/DL Calcium Level 9.2 8.5-10.1 MG/DL Corrected Calcium 9.4 8.5-10.1 MG/DL Magnesium Level 1.7 L 1.8-2.4 MG/DL Total Bilirubin 0.2 0.1-1.0 MG/DL Aspartate Amino Transf (AST/SGOT) 12 5-34 U/L Alanine Aminotransferase (ALT/SGPT) 10 0-55 U/L Alkaline Phosphatase 125 40-136 U/L Troponin T 16 H <=10 NG/L Total Protein 6.4 6.4-8.2 GM/DL Albumin 3.8 3.2-4.5 GM/DL Urine Color YELLOW Urine Clarity CLEAR Urine pH 6.0 5-9 Urine Specific [place] 1.010 L 1.016-1.022 Urine Protein NEGATIVE NEGATIVE Urine Glucose (UA) NEGATIVE NEGATIVE Urine Ketones NEGATIVE NEGATIVE Urine Nitrite NEGATIVE NEGATIVE Urine Bilirubin NEGATIVE NEGATIVE Urine Urobilinogen 0.2 NORMAL MG/DL Urine Leukocyte Esterase NEGATIVE NEGATIVE Urine RBC (Auto) NEGATIVE NEGATIVE Urine RBC NONE /HPF Urine WBC 0-2 /HPF Urine Squamous Epithelial Cells 0-2 /HPF Urine Crystals NONE /LPF Urine Bacteria NEGATIVE /HPF Urine Casts NONE /LPF Urine Mucus MODERATE H /LPF Urine Culture Indicated NO My Orders Orders - MAGED RODGERS DO Cbc With Automated Diff (03/31/18 22:32) Comprehensive Metabolic Panel (03/31/18 22:32) BNP (03/31/18 22:32) Chest 1 View Ap/Pa Only (03/31/18 22:32) Magnesium (03/31/18 22:32) O2 (03/31/18 22:32) Saline Lock/Iv-Start (03/31/18 22:32) Monitor-Rhythm Ecg Trace Only (03/31/18 22:32) Aspirin Tablet (Aspirin Tablet) (03/31/18 22:45) Furosemide Injection (Lasix Injection) (03/31/18 22:45) Nitroglycerin Ointment (Nitrobid Ointme (03/31/18 22:45) Fentanyl Injection (Sublimaze Injection (03/31/18 23:00) Lorazepam Injection (Ativan Injection) (03/31/18 23:00) Catheter(Urinary) Insert & Ass 03,15 (03/31/18 23:36) Urinalysis (04/01/18 00:44) Ekg Tracing (04/01/18 02:52) Lorazepam Injection (Ativan Injection) (04/01/18 03:15) Fentanyl Injection (Sublimaze Injection (04/01/18 03:15) Lorazepam Injection (Ativan Injection) (04/01/18 03:06) Medications Given in ED Current Medications Medications Dose Ordered Sig/North Route Start Time Stop Time Status Last Admin Dose Admin Aspirin 325 mg ONCE ONCE PO 03/31/18 22:45 03/31/18 22:46 DC 03/31/18 23:14 325 MG Fentanyl Citrate 50 mcg ONCE ONCE IVP 04/01/18 03:15 04/01/18 03:16 DC 04/01/18 03:22 50 MCG Fentanyl Citrate 50 mcg Q1H PRN IVP 03/31/18 23:00 04/01/18 03:29 DC 03/31/18 23:13 50 MCG Furosemide 40 mg ONCE ONCE IVP 03/31/18 22:45 03/31/18 22:46 DC 03/31/18 23:13 40 MG Lorazepam 0.5 mg ONCE PRN IVP 04/01/18 03:15 04/01/18 03:29 DC 04/01/18 03:12 0.5 MG Lorazepam 1 mg Q4H ONCE IVP 03/31/18 23:00 03/31/18 23:03 DC 03/31/18 23:13 1 MG Vital Signs/I&O 03/31/18 03/31/18 04/01/18 22:27 22:27 01:38 Temp 97.1 Pulse 112 107 Resp 18 B/P (MAP) 152/102 (119) 124/95 (105) Pulse Ox 100 O2 Delivery Nasal Cannula Nasal Cannula O2 Flow Rate 2.00 2.00 2.00 Progress Progress Note : Time: 01:05 Progress Note @0105 - awaiting troponin level at this time. All other results are back and suggested a CHF exacerbation. The patient prefers to be transferred to [facility] as the source she normally goes when she requires admission. Once the troponin is resulted I will contact [facility] for transfer. Initial ECG Impression Date: Mar 31, 2018 Initial ECG Impression Time: 22:27 Initial ECG Rhythm: S.Tach Comment Sinus tachycardia, right bundle branch block is present, left axis deviation is noted, no acute ischemic findings, no STEMI, similar to previous ECG on 02/02/18 , reviewed and interpreted by myself Departure Impression Primary Impression: CHF (congestive heart failure) Additional Impressions: Chest pain Elevated troponin Disposition: XFER SHT-TRM HOSP Condition: Stable Transfer Time Spoke to Accepting Phy: 01:25 Transfer Progress Notes @0125 - [facility] transfer line was called as the patient will require a higher level of care as well as a telemetry/PCU admission. Dr. Stanley Mei accepts the admission at this time. The patient will go by ground transport. They will call back with a bed assignment. @0130 - There had been a problem with the troponin resulting but it did result at this time and is noted to be mildly elevated. Transfer Facility: [facility] Method of Transfer: EMS Departure-Patient Inst. Referrals: UNKNOWN (PCP/Family) Primary Care Physician MAGED RODGERS DO Mar 31, 2018 22:41
[2018-03-31] MEDS ORDERED: FUROSEMIDE 40 MG/4 ML INJ (LASIX) IVP ONE (22:45)
[2018-03-31] MEDS ORDERED: ASPIRIN 325 MG (5 GR) TABLET PO ONE (22:45)
[2018-03-31] MEDS ORDERED: NITROGLYCERIN 2% OINT 1 GM UNIT DOSE PACKET TOP ONE (22:45)
[2018-03-31] MEDS ORDERED: fentaNYL INJECTION 100 MCG/2 ML AMP IVP PRN (23:00)
[2018-03-31] MEDS ORDERED: LORazepam INJ 2 MG/ML (ATIVAN) VIAL IVP ONE (23:00)
[2018-04-01 00:25] LABS: HEMATOCRIT 41 % (35-52); HEMOGLOBIN 12.7 G/DL (11.5-16.0); MEAN CORPUSCULAR HEMOGLOBIN 26 PG (25-34); WHITE BLOOD COUNT 11.3 10^3/uL (4.3-11.0)
[2018-04-01 00:26] LABS: BASOPHILS % (AUTO) 0 % (0-10); EOSINOPHILS # (AUTO) 0.1 10^3/uL (0.0-0.3); EOSINOPHILS % (AUTO) 1 % (0-10); LYMPHOCYTES # (AUTO) 2.6 X 10^3 (1.0-4.0); LYMPHOCYTES % (AUTO) 23 % (12-44); MEAN CORPUSCULAR HGB CONC 31 G/DL (32-36); MEAN CORPUSCULAR VOLUME 84 FL (80-99); MEAN PLATELET VOLUME 10.6 FL (7.4-10.4); MONOCYTES # (AUTO) 0.9 X 10^3 (0.0-1.0); MONOCYTES % (AUTO) 8 % (0-12); NEUTROPHILS # (AUTO) 7.7 X 10^3 (1.8-7.8); NEUTROPHILS % (AUTO) 68 % (42-75); PLATELET COUNT 164 10^3/uL (130-400); RED CELL DISTRIBUTION WIDTH 15.3 % (10.0-14.5)
[2018-04-01 00:35] LABS: BUN/CREATININE RATIO 14; CARBON DIOXIDE 22 MMOL/L (21-32); CHLORIDE 101 MMOL/L (98-107); GFR ESTIMATED > 60; SODIUM 138 MMOL/L (135-145)
[2018-04-01 00:36] LABS: ALANINE AMINOTRANSFERASE 10 U/L (0-55); ALBUMIN 3.8 GM/DL (3.2-4.5); ALKALINE PHOSPHATASE 125 U/L (40-136); BILIRUBIN,TOTAL 0.2 MG/DL (0.1-1.0); CALCIUM 9.2 MG/DL (8.5-10.1); GLUCOSE 137 MG/DL (70-105); MAGNESIUM 1.7 MG/DL (1.8-2.4); TOTAL PROTEIN 6.4 GM/DL (6.4-8.2)
[2018-04-01 01:23] LABS: BACTERIA,URINE NEGATIVE /HPF; BILIRUBIN,URINE NEGATIVE (NEGATIVE); CLARITY,URINE CLEAR; COLOR,URINE YELLOW; GLUCOSE, URINE (UA) NEGATIVE (NEGATIVE); KETONES,URINE NEGATIVE (NEGATIVE); LEUKOCYTE ESTERASE ,URINE NEGATIVE (NEGATIVE); NITRITE,URINE NEGATIVE (NEGATIVE); PROTEIN,URINE NEGATIVE (NEGATIVE); UROBILINOGEN,URINE 0.2 MG/DL (NORMAL); WBC,URINE 0-2 /HPF
[2018-04-01 01:24] LABS: SQUAMOUS EPITHELIAL CELL,UR 0-2 /HPF
--- NOTE | 2018-04-01 01:36 | NUR ---
1000 cc urine received from the [facility].
--- NOTE | 2018-04-01 01:36 | NUR ---
Pt. resting with eyes closed. She still is coughing but has greatly improved.
[2018-04-01 01:38] VITALS: BP 124/95
[2018-04-01] MEDS ORDERED: LORazepam INJ 2 MG/ML (ATIVAN) VIAL ONE (03:06)
[2018-04-01] MEDS ORDERED: LORazepam INJ 2 MG/ML (ATIVAN) VIAL IVP PRN (03:15)
[2018-04-01] MEDS ORDERED: fentaNYL INJECTION 100 MCG/2 ML AMP IVP ONE (03:15)
--- NOTE | 2018-04-01 07:25 | Diagnostic Imaging Report ---
INDICATION: Shortness of breath Portable chest 1203 AM There is a dual-chamber pacemaker. Heart size and pulmonary vascularity are normal. There is some increased density in the right lateral lung base that could be developing infiltrate. IMPRESSION: Possible infiltrate right lower lung could be developing pneumonia. Dictated by: Dictated on workstation # [id number]
== END 2018-04-01 03:25 | disposition short-term general hospital (02) ==
LOC: EDUNIT# 22:27 → ER FS 22:29
DX: I50.9 Heart failure, unspecified (principal); R07.9 Chest pain, unspecified; R79.89 Other specified abnormal findings of blood chemistry; J44.9 Chronic obstructive pulmonary disease, unspecified; I42.9 Cardiomyopathy, unspecified; Z95.810 Presence of automatic (implantable) cardiac defibrillator; Z88.8 Allergy status to other drugs, medicaments and biological substances; Z88.5 Allergy status to narcotic agent; Z91.041 Radiographic dye allergy status; Z91.048 Other nonmedicinal substance allergy status
CPT/HCPCS: 36415; 51702; 71045; 80053; 81000; 83735; 83880; 84484; 85025; 93005; 93041; 96374; 96375; 96376

== ENCOUNTER 2018-04-11 12:33 | Emergency (ER) | payer MEDICARE, MEDICAID ==
[~2018-04-11] VITALS: Ht 170.2 cm; Wt 88.0 kg
--- NOTE | 2018-04-11 12:47 | ED Lower Extremity ---
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 She is out of oxycodone until wednesday. She was recently hospitalized at [facility] in [place] for pneumonia and was on steroids at that time she is just completed a course and feels that her right stump is swollen. Reports that her BKA was due to blood clot and is concerned that she may have another. Allergies and Home Medications Allergies Coded Allergies: albuterol (Verified Allergy, Severe, 03/31/18) Heart Racing morphine (Verified Allergy, Mild, 03/31/18) Nausea Vomiting Uncoded Allergies: IVP DYE (Allergy, Unknown, 03/31/18) PLASTIC TAPE (Allergy, Unknown, 03/31/18) Patient Home Medication List Home Medication List Reviewed: Yes Review of Systems Constitutional: No chills, No fever Respiratory: No cough, No wheezing Cardiovascular: No chest pain, No edema Gastrointestinal: No abdominal pain, No nausea, No vomiting Musculoskeletal: see HPI Skin: No change in color, No rash Psychiatric/Neurological: Denies Anxiety, Denies Numbness Past Fjlbpin-Xxvjsw-Qhcqff Hx Past Med/Social Hx: Reviewed Nursing Past Med/Soc Hx Patient Social History Recent Foreign Travel: No Contact w/Someone Who Travel: No Recent Hopitalizations: No Past Medical History Surgeries: Yes Amputation, Defibrillator, Pacemaker Respiratory: Yes COPD Currently Using CPAP: No Currently Using BIPAP: No Cardiac: Yes Heart Attack, Palpitations Neurological: No Musculoskeletal: Yes Amputee Diabetes, Non-Insulin dep HEENT: No Psychosocial: No Integumentary: No Blood Disorders: No Adverse Reaction/Blood Tranf: No Physical Exam Vital Signs Capillary Refill : Height, Weight, BMI Height: 5'7.00" Weight: 194lbs. oz. 87.471113qd; BMI Method:Stated General Appearance: WD/WN, no apparent distress HEENT: PERRL/EOMI, normal ENT inspection Neck: full range of motion, normal inspection Cardiovascular: normal peripheral pulses, regular rate, rhythm, no edema, no gallop, no JVD, no murmur Respiratory: chest non-tender, lungs clear, normal breath sounds, no respiratory distress, no accessory muscle use Gastrointestinal: normal bowel sounds, non tender, soft, no organomegaly, no pulsatile mass Back: normal inspection, no CVA tenderness, no vertebral tenderness Hips: bilateral hip non-tender, bilateral hip normal inspection, bilateral hip normal range of motion Knees: right knee soft tissue tenderness (At right BKA stump), right knee swelling Neurologic/Psychiatric: no motor/sensory deficits, alert, normal mood/affect, oriented x 3 Procedures/Interventions Ultrasound: normal Bedside point of care RLE ultrasound performed by me for evaluation of DVT is negative. (has BKA) Progress/Results/Core Measures Results/Orders My Orders Orders - ASIM AKBAR MD Ketorolac Injection (Toradol Injection) (04/11/18 13:15) Dexamethasone Injection (Decadron Inject (04/11/18 13:15) Comprehensive Metabolic Panel (04/11/18 13:10) Lipase (04/11/18 13:10) Ua Culture If Indicated (04/11/18 13:10) Saline Lock/Iv-Start (04/11/18 13:10) Cbc With Automated Diff (04/11/18 13:10) Ns Iv 1000 Ml (Sodium Chloride 0.9%) (04/11/18 13:15) Hydromorphone Injection (Dilaudid Inject (04/11/18 13:15) Ondansetron Injection (Zofran Injectio (04/11/18 13:15) Medications Given in ED Current Medications Medications Dose Ordered Sig/North Route Start Time Stop Time Status Last Admin Dose Admin Ketorolac Tromethamine 60 mg ONCE ONCE IM 04/11/18 13:15 04/11/18 13:16 DC 04/11/18 13:36 60 MG Progress Progress Note : Time: 13:57 Progress Note improved. Patient is on eliquis, bedside ultrasound is negative for DVT. She is feeling much better after 1 dose of IM Toradol. Discussed results of testing diagnosis and follow-up plans all of her questions were answered. Departure Impression Primary Impression: Chronic pain Additional Impression: Leg pain Disposition: 01 HOME, SELF-CARE Condition: Improved Departure-Patient Inst. Decision time for Depature: 13:57 Referrals: NO,LOCAL PHYSICIAN (PCP/Family) Primary Care Physician Patient Instructions: Chronic Pain (DC) Add. Discharge Instructions: elevate RLE for the next few days. Use heating pad 20-30 min every 2-3 hours as needed starting on 04/12/18 ASIM AKBAR MD Apr 11, 2018 12:46
[2018-04-11] MEDS ORDERED: DEXAMETHASONE 4 MG/ML SDV (DECADRON) IM ONE (13:15)
[2018-04-11] MEDS ORDERED: NS IV 1000 ML 1,000 ML IV SCH (13:15)
[2018-04-11] MEDS ORDERED: KETOROLAC 60 MG/2 ML VIAL IM ONE (13:15)
[2018-04-11] MEDS ORDERED: HYDROmorphone 2 MG/ML VIAL (DILAUDID) IV ONE (13:15)
[2018-04-11] MEDS ORDERED: ONDANSETRON 4 MG/2 ML (SDV) Z0FRAN IVP ONE (13:15)
--- NOTE | 2018-04-11 13:36 | NUR ---
Verified with physician the only order he wants on pt is Toradol shot. Some add'l orders being cancelled.
[2018-04-11 14:14] VITALS: BP 105/72
--- NOTE | 2018-04-11 14:14 | NUR ---
Pt discharged to home at this time verbalizing understanding of home instructions reviewed. Pt states her Dr will write her Percocet on Wednesday, pt is not concerned about no Rx for add'l narcotics reporting she knows her Dr's rules of pain med management.
== END 2018-04-11 14:14 | disposition home or self-care (01) ==
LOC: EDUNIT# 12:33 → ER FS 12:35
DX: M79.604 Pain in right leg (principal); G89.29 Other chronic pain; J44.9 Chronic obstructive pulmonary disease, unspecified; I25.2 Old myocardial infarction; E11.9 Type 2 diabetes mellitus without complications; Z88.8 Allergy status to other drugs, medicaments and biological substances; Z88.5 Allergy status to narcotic agent; Z91.041 Radiographic dye allergy status; Z91.048 Other nonmedicinal substance allergy status; Z89.511 Acquired absence of right leg below knee; Z95.810 Presence of automatic (implantable) cardiac defibrillator
CPT/HCPCS: 99284

== ENCOUNTER 2018-04-14 14:18 | Emergency (ER) | payer MEDICARE, MEDICAID ==
[~2018-04-14] VITALS: Ht 170.2 cm; Wt 84.8 kg
[2018-04-14 14:42] VITALS: BP 127/73
[2018-04-14] MEDS ORDERED: oxyCODONE/APAP 5/325MG (PERCOCET 5) TABLET PO ONE (14:45)
--- NOTE | 2018-04-14 14:48 | ED General ---
General Chief Complaint: General Problems/Pain Stated Complaint: RT LEG PAIN Nursing Triage Note: PT HAS CHRONIC LEFT LOWER LEG PAIN FROM AMPUTATION IN 2015. PHANTOM PAINS. Nursing Sepsis Screen: No Definite Risk Source of Information: Patient Exam Limitations: No Limitations History of Present Illness Date Seen by Provider: Apr 14, 2018 Time Seen by Provider: 14:44 Initial Comments 62-year-old female with history of DKA who presents with chronic right stump pain. Patient states she currently is out of pain medication and cannot get pain medication refilled for another several days. Patient was evaluated emergency department last week for the same had extensive workup including CT ultrasound negative for DVT. Denies new symptoms or complaints states her pain is just pearly control. Timing/Duration: Constant Associated Systoms: Denies Symptoms Allergies and Home Medications Allergies Coded Allergies: albuterol (Verified Allergy, Severe, 03/31/18) Heart Racing morphine (Verified Allergy, Mild, 03/31/18) Nausea Vomiting Uncoded Allergies: IVP DYE (Allergy, Unknown, 03/31/18) PLASTIC TAPE (Allergy, Unknown, 03/31/18) Patient Home Medication List Home Medication List Reviewed: Yes Review of Systems Review of Systems Constitutional: no symptoms reported Respiratory: no symptoms reported Cardiovascular: no symptoms reported Gastrointestinal: no symptoms reported Genitourinary: no symptoms reported Musculoskeletal: see HPI Skin: no symptoms reported Psychiatric/Neurological: No Symptoms Reported Past Ctvscgj-Nmrbow-Cddlay Hx Past Med/Social Hx: Reviewed Nursing Past Med/Soc Hx Patient Social History Alcohol Use: Denies Use Recreational Drug Use: No Type Used: Cigarettes 2nd Hand Smoke Exposure: No Recent Foreign Travel: No Contact w/Someone Who Travel: No Recent Infectious Disease Expo: No Recent Hopitalizations: No Physical Abuse: No Sexual Abuse: No Mistreated: No Fear: No Immunizations Up To Date Date of Influenza Vaccine: Nov 08, 2018 Seasonal Allergies Seasonal Allergies: No Past Medical History Surgeries: No Amputation, Defibrillator, Pacemaker Respiratory: Yes COPD Currently Using CPAP: No Currently Using BIPAP: No Cardiac: Yes Heart Attack, Palpitations Neurological: No Genitourinary: No Gastrointestinal: No Musculoskeletal: Yes Amputee Endocrine: Yes Diabetes, Non-Insulin dep HEENT: No Cancer: No Psychosocial: No Integumentary: No Blood Disorders: No Adverse Reaction/Blood Tranf: No Physical Exam Vital Signs Vital Signs - First Documented 04/14/18 14:36 Temp 98.1 Pulse 71 Resp 18 B/P (MAP) 122/73 (89) O2 Delivery Room Air Capillary Refill : Less Than 3 Seconds Height, Weight, BMI Height: 5'7.00" Weight: 187lbs. oz. 84.828230pc; BMI Method:Estimated General Appearance: No Apparent Distress, WD/WN, Mild Distress, Other HEENT: PERRL/EOMI Neck: Full Range of Motion, Normal Inspection Respiratory: Chest Non Tender, Lungs Clear Extremity: Normal Capillary Refill, No Pedal Edema; No Swelling; Other (right BKA stump, no tenderness swelling, erythema, warmth appreciated.) Neurologic/Psychiatric: Oriented x3 Progress/Results/Core Measures Suspected Sepsis Recent Fever Within 48 Hours: No Infection Criteria Present: None New/Unexplained Altered Menta: No Sepsis Screen: No Definite Risk SIRS Temperature:98.1 Pulse: 71 Respiratory Rate: 18 Blood Pressure 122 /73 Mean: 89 Results/Orders My Orders Orders - KEYSHAWN LANDA DO Oxycodone/Apap 5/325mg Tablet (Percocet (04/14/18 14:45) Vital Signs/I&O 04/14/18 14:36 Temp 98.1 Pulse 71 Resp 18 B/P (MAP) 122/73 (89) O2 Delivery Room Air Capillary Refill : Less Than 3 Seconds Blood Pressure Mean: 89 Progress Note : Time: 14:46 Progress Note Poorly controlled chronic pain, currently out of pain medications. Home pain medication given. Recommend follow up with PCP and/or senior communications specialist for further management. Departure Impression Primary Impression: Chronic pain Disposition: 01 HOME, SELF-CARE Condition: Improved Departure-Patient Inst. Referrals: NO,LOCAL PHYSICIAN (PCP) Primary Care Physician Patient Instructions: CHRONIC PAIN Add. Discharge Instructions: Please follow up with your PCP and/or specialist for further management of chronic pain. All discharge instructions reviewed with patient and/or family. Voiced understanding. KEYSHAWN LANDA DO Apr 14, 2018 14:48
== END 2018-04-14 14:50 | disposition home or self-care (01) ==
LOC: ER FS 14:19 → EDUNIT# 14:28 → ER FS 14:32
DX: M79.604 Pain in right leg (principal); G89.29 Other chronic pain; J44.9 Chronic obstructive pulmonary disease, unspecified; I25.2 Old myocardial infarction; E11.9 Type 2 diabetes mellitus without complications; Z88.8 Allergy status to other drugs, medicaments and biological substances; Z88.5 Allergy status to narcotic agent; Z91.048 Other nonmedicinal substance allergy status; Z91.041 Radiographic dye allergy status; Z95.810 Presence of automatic (implantable) cardiac defibrillator; Z98.890 Other specified postprocedural states
CPT/HCPCS: 99283

== ENCOUNTER 2018-04-21 21:58 | Emergency (ER) | payer MEDICARE, MEDICAID ==
[~2018-04-21] VITALS: Ht 170.2 cm; Wt 83.5 kg
--- NOTE | 2018-04-21 22:17 | ED Cardiac General ---
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 She had a mammogram earlier in the day and was feeling like her normal self and came home to take a nap and then woke feeling like her heart was being fast. No chest pain or shortness of breath. She has some chronic pain in the left shoulder which is not new today. No paresthesias. 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 Recently was discharged from [facility] where she was admitted for pneumonia, no cough, no fever, no shortness of breath. She does wear oxygen as needed to and a half liters by nasal cannula, she is currently on room air. 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 Allergies and Home Medications Allergies Coded Allergies: albuterol (Verified Allergy, Severe, 03/31/18) Heart Racing morphine (Verified Allergy, Mild, 03/31/18) Nausea Vomiting Uncoded Allergies: IVP DYE (Allergy, Unknown, 03/31/18) PLASTIC TAPE (Allergy, Unknown, 03/31/18) Patient Home Medication List Home Medication List Reviewed: Yes Review of Systems Review of Systems Constitutional: no symptoms reported EENTM: No Symptoms Reported Respiratory: No Symptoms Reported Cardiovascular: See HPI Gastrointestinal: No Symptoms Reported Genitourinary: No Symptoms Reported Musculoskeletal: see HPI Skin: no symptoms reported Psychiatric/Neurological: No Symptoms Reported Endocrine: No Symptoms Reported Hematologic/Lymphatic: No Symptoms Reported Past Gokbufb-Obaqbi-Oityyl Hx Past Med/Social Hx: Reviewed Nursing Past Med/Soc Hx Patient Social History Type Used: Cigarettes 2nd Hand Smoke Exposure: No Recent Foreign Travel: No Contact w/Someone Who Travel: No Recent Hopitalizations: No Immunizations Up To Date Date of Influenza Vaccine: Nov 08, 2018 Seasonal Allergies Seasonal Allergies: No Past Medical History Surgeries: No Amputation, Defibrillator, Pacemaker Respiratory: Yes COPD Currently Using CPAP: No Currently Using BIPAP: No Cardiac: Yes Heart Attack, Palpitations Neurological: No Genitourinary: No Gastrointestinal: No Musculoskeletal: Yes Amputee Endocrine: Yes Diabetes, Non-Insulin dep HEENT: No Cancer: No Psychosocial: No Integumentary: No Blood Disorders: No Adverse Reaction/Blood Tranf: No Physical Exam Vital Signs Vital Signs - First Documented 04/21/18 04/21/18 22:14 23:13 Temp 98.5 Pulse 103 Resp 22 B/P (MAP) 91/73 (79) Pulse Ox 96 O2 Delivery Nasal Cannula O2 Flow Rate 2.50 Capillary Refill : Height, Weight, BMI Height: 5'7.00" Weight: 187lbs. oz. 84.559539wo; BMI Method:Estimated General Appearance: Other (initially patient arrives slightly tearful but this does not persist beyond the end of my exam, she is in no visible pain or respiratory distress. ) HEENT: Moist Mucous Membranes Neck: Supple; No JVD Respiratory: Lungs Clear, No Accessory Muscle Use, No Respiratory Distress; No Rales, No Rhonci, No Wheezing Cardiovascular: Other (tachycardic, irregularly irregular) Gastrointestinal: Non Tender, Soft Extremity: Other (chronic right lower extremity amputation, pulses are symmetrical in all extremities) Neurologic/Psychiatric: Alert, Oriented x3, No Motor/Sensory Deficits Skin: Warm/Dry Procedures/Interventions Lumen: single Complications: none IV : Location: Right Site: Forearm IV Catheter Type: Peripheral IV (ultrasound-guided Angiocath placement) IV Catheter Gauge: 20 Progress Verbal consent was obtained. Indication was inability to obtain blood for laboratory testing. Skin was prepped with alcohol. Sterile probe cover was used , sterile jelly was used. A 20-gauge Angiocath was inserted into the lumen of a volar forearm vein with no difficulty, there was good blood return, flushed well. Secured with Tegaderm and tape. Patient tolerated very well with no chronic medications. Progress/Results/Core Measures Results/Orders Lab Results Laboratory Tests Test 04/21/18 23:40 Range/Units White Blood Count 9.1 4.3-11.0 10^3/uL Red Blood Count 5.11 4.35-5.85 10^6/uL Hemoglobin 13.1 11.5-16.0 G/DL Hematocrit 42 35-52 % Mean Corpuscular Volume 83 80-99 FL Mean Corpuscular Hemoglobin 26 25-34 PG Mean Corpuscular Hemoglobin Concent 31 L 32-36 G/DL Red Cell Distribution Width 15.9 H 10.0-14.5 % Platelet Count 287 130-400 10^3/uL Mean Platelet Volume 9.7 7.4-10.4 FL Prothrombin Time 14.4 12.2-14.7 SEC INR Comment 1.1 0.8-1.4 Activated Partial Thromboplast Time 30 24-35 SEC Sodium Level 140 135-145 MMOL/L Potassium Level 3.8 3.6-5.0 MMOL/L Chloride Level 99 98-107 MMOL/L Carbon Dioxide Level 23 21-32 MMOL/L Anion Gap 18 H 5-14 MMOL/L Blood Urea Nitrogen 20 H 7-18 MG/DL Creatinine 1.39 H 0.60-1.30 MG/DL Estimat Glomerular Filtration Rate 46 BUN/Creatinine Ratio 14 Glucose Level 86 70-105 MG/DL Calcium Level 10.1 8.5-10.1 MG/DL Corrected Calcium 9.9 8.5-10.1 MG/DL Magnesium Level 1.8 1.8-2.4 MG/DL Total Bilirubin 0.3 0.1-1.0 MG/DL Aspartate Amino Transf (AST/SGOT) 13 5-34 U/L Alanine Aminotransferase (ALT/SGPT) 11 0-55 U/L Alkaline Phosphatase 106 40-136 U/L Troponin T 21 H <=10 NG/L Pro-B-Type Natriuretic Peptide 601.4 H <75.0 PG/ML Total Protein 7.0 6.4-8.2 GM/DL Albumin 4.3 3.2-4.5 GM/DL My Orders Orders - FAIZA JUAREZ T DO Magnesium (04/21/18 22:14) Chest 1 View Ap/Pa Only (04/21/18 22:14) Ekg Tracing (04/21/18 22:14) Comprehensive Metabolic Panel (04/21/18 22:14) Protime With Inr (04/21/18 22:14) Partial Thromboplastin Time (04/21/18 22:14) O2 (04/21/18 22:14) Monitor-Rhythm Ecg Trace Only (04/21/18 22:14) Saline Lock/Iv-Start (04/21/18 22:14) Cbc No Diff (04/21/18 22:14) Troponin T (04/21/18 22:14) Probnp Fs (04/21/18 22:14) Oxycodone/Apap 5/325mg Tablet (Percocet (04/21/18 23:26) Vital Signs/I&O 04/21/18 04/21/18 22:14 23:13 Temp 98.5 Pulse 103 Resp 22 B/P (MAP) 91/73 (79) Pulse Ox 96 96 O2 Delivery Nasal Cannula Room Air O2 Flow Rate 2.50 Progress Progress Note : Progress Note Patient has a significant medical history but at this time is completely well- appearing, sitting up in bed, having conversations comfortably, eating crackers. She states that her main reason for coming to the emergency department was that she thought the pacemaker would terminate all PVCs, and because there are ongoing she wanted to get checked out. I was able to discuss patient's case with Dr. Davila from cardiology director of admissions for Dr. Krueger's group. She recommended that she may be put on a higher dose of metoprolol however she is already on a somewhat high dose, 100 mg daily. This would only be for symptomatic control. At this time it is not necessary that we make this change, at least in part that patient now feels asymptomatic and we are not seeing PVCs on the monitor. Dr Davila felt the patient follow-up in the office, I think this is reasonable given ECG is similar to prior, BNP is slightly elevated compared to prior but chest x-ray is without pulmonary edema or pleural effusions and patient is stable on room air, troponin is slightly elevated but in a nonspecific range in the setting, patient herself would like to go home. We spoke at length about smoking cessation. She will return for any new or worsening symptoms. Her son is at the bedside with her and can help her home. EKG : Comment 2214: EP interpretation: There is an irregular rhythm with an overall ventricular rate of 105. There appeared to be some conducted atrial waves with some premature atrial contractions as well as several PVCs. There are inferior and lateral Q waves. Right bundle branch block with a QRS of 170. QTC is measured at 539 ms. There is a [address] elevation in the inferior leads, less than [address] depression in anterior leads with T-wave inversions in the anterior leads. Compared to an ECG from 02/02/18 right bundle-branch morphology is stable, inferior and lateral Q waves are stable, inferior ST elevations are stable, anterior ST depressions and T-wave inversions may be more prominent on today's study but were also present at that time. Diagnostic Imaging Diagonstic Imaging: Xray Plain Films/CT/US/NM/MRI: chest Comments EP interpretation: Trachea is midline, no obvious bony abnormalities, heart size is enlarged, there is calcification in the aortic knob, costophrenic angles are sharp, no focal infiltrates, there is central vascular congestion, dual-chamber pacemaker in place, no pneumothoraces Reviewed: Reviewed by Me Departure Impression Primary Impression: Premature ventricular contractions Additional Impressions: Hx of congestive heart failure Elevated troponin Elevated brain natriuretic peptide (BNP) level Renal insufficiency Disposition: HOME, SELF-CARE Condition: Stable Departure-Patient Inst. Referrals: NO,LOCAL PHYSICIAN (PCP/Family) Primary Care Physician Patient Instructions: Palpitations (DC) FAIZA JUAREZ DO Apr 21, 2018 22:17
[2018-04-21] MEDS ORDERED: oxyCODONE/APAP 5/325MG (PERCOCET 5) TABLET PO STA (23:26)
[2018-04-21 23:52] LABS: HEMOGLOBIN 13.1 G/DL (11.5-16.0); MEAN PLATELET VOLUME 9.7 FL (7.4-10.4); RED CELL DISTRIBUTION WIDTH 15.9 % (10.0-14.5); WHITE BLOOD COUNT 9.1 10^3/uL (4.3-11.0)
[2018-04-22 00:27] LABS: CALCIUM 10.1 MG/DL (8.5-10.1); CREATININE SERUM 1.39 MG/DL (0.60-1.30); POTASSIUM 3.8 MMOL/L (3.6-5.0)
[2018-04-22 00:28] LABS: ALBUMIN 4.3 GM/DL (3.2-4.5); BILIRUBIN,TOTAL 0.3 MG/DL (0.1-1.0); MAGNESIUM 1.8 MG/DL (1.8-2.4)
[2018-04-22 00:31] LABS: INR 1.1 (0.8-1.4); PROTHROMBIN TIME PATIENT 14.4 SEC (12.2-14.7)
[2018-04-22 01:10] VITALS: BP 120/74
--- NOTE | 2018-04-22 08:16 | Diagnostic Imaging Report ---
INDICATION: Chest discomfort. Time of exam: 10:21 PM Correlation is made with prior study from 04/01/2018. The heart size is stable. Cardiac defibrillator is in place. There is no infiltrate or failure. No effusion or pneumothorax is identified. IMPRESSION: No acute cardiopulmonary process is detected. Dictated by: Dictated on workstation # [id number]
== END 2018-04-22 01:10 | disposition home or self-care (01) ==
LOC: EDUNIT# 21:58 → ER FS 22:00
DX: I49.3 Ventricular premature depolarization (principal); I50.9 Heart failure, unspecified; R79.89 Other specified abnormal findings of blood chemistry; N28.9 Disorder of kidney and ureter, unspecified; I48.91 Unspecified atrial fibrillation; J44.9 Chronic obstructive pulmonary disease, unspecified; I25.2 Old myocardial infarction; E11.9 Type 2 diabetes mellitus without complications; Z79.01 Long term (current) use of anticoagulants; Z95.810 Presence of automatic (implantable) cardiac defibrillator; Z88.8 Allergy status to other drugs, medicaments and biological substances; Z88.5 Allergy status to narcotic agent; Z91.041 Radiographic dye allergy status; Z91.048 Other nonmedicinal substance allergy status; Z99.81 Dependence on supplemental oxygen
CPT/HCPCS: 36415; 71045; 80053; 83735; 83880; 84484; 85027; 85610; 85730; 93005; 93041

== ENCOUNTER 2018-05-30 13:15 | Emergency (ER) | payer MEDICARE, MEDICAID ==
[~2018-05-30] VITALS: Ht 170.2 cm; Wt 84.8 kg
--- NOTE | 2018-05-30 13:35 | NUR ---
HAVE ATTEMPTED 3 TRIES PERIPHERALLY FOR LAB DRAW WITH BUTTERFLY NEEDLE. BLOOD FLASH BUT DOES NOT PULL BLOOD.
--- NOTE | 2018-05-30 13:45 | NUR ---
PT STATES NURSE WAS LIMITED TO 3 TRIES. PT REPORTS SHE IS HORRBLE STICK VEINS "BAD". PT REPORTS PAST HX OF DOING "CRACK."
--- NOTE | 2018-05-30 13:56 | ED Respiratory ---
General Chief Complaint: Respiratory Problems Stated Complaint: SOB History of Present Illness Date Seen by Provider: May 30, 2018 Time Seen by Provider: 13:44 This is a 62-year-old female with a history of atrial fibrillation on Eliquis, status post pacemaker placement, presenting by EMS for complaint of shortness of breath for the last 2 days. She has been taking doxycycline for a productive cough for the last 3 or 4 days she states. 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 She is not having any fever or chills. She is not having any chest pain. She wears oxygen at home as needed, she has not noticed any increase in her oxygen requirement. Allergies and Home Medications Allergies Coded Allergies: albuterol (Verified Allergy, Severe, 03/31/18) Heart Racing morphine (Verified Allergy, Mild, 03/31/18) Nausea Vomiting Uncoded Allergies: IVP DYE (Allergy, Unknown, 03/31/18) PLASTIC TAPE (Allergy, Unknown, 03/31/18) Patient Home Medication List Home Medication List Reviewed: Yes Review of Systems Review of Systems Constitutional: no symptoms reported EENTM: no symptoms reported Respiratory: see HPI Cardiovascular: no symptoms reported Gastrointestinal: no symptoms reported Genitourinary: no symptoms reported Musculoskeletal: no symptoms reported Skin: no symptoms reported Psychiatric/Neurological: No Symptoms Reported Hematologic/Lymphatic: No Symptoms Reported Immunological/Allergic: no symptoms reported Past Plycpig-Okudfp-Jykegm Hx Past Med/Social Hx: Reviewed Nursing Past Med/Soc Hx Patient Social History Alcohol Use: Past History Recreational Drug Use: No (PAST HX OF CRACK USAGE, CLEAN 7-8 YRS ) Smoking Status: Current Someday Smoker Type Used: Cigarettes 2nd Hand Smoke Exposure: Yes Recent Hopitalizations: No Immunizations Up To Date Date of Influenza Vaccine: Nov 08, 2018 Seasonal Allergies Seasonal Allergies: No Past Medical History Surgeries: Yes Amputation, Defibrillator, Pacemaker Respiratory: Yes COPD Currently Using CPAP: No Currently Using BIPAP: No Cardiac: Yes Atrial Fibrillation, Heart Attack, Palpitations Neurological: No Genitourinary: No Gastrointestinal: No Musculoskeletal: Yes Amputee Endocrine: Yes Diabetes, Non-Insulin dep HEENT: No Cancer: No Psychosocial: No Integumentary: No Blood Disorders: No Adverse Reaction/Blood Tranf: No Physical Exam Vital Signs - First Documented Capillary Refill : Height: 5'7.00" Weight: 184lbs. 0oz. 83.056832vm; BMI Method:Stated General Appearance: no apparent distress (wearing nasal cannula however speaking in full sentences, no accessory muscle use, no stridor, no visible discomfort) HEENT: PERRL/EOMI, normal ENT inspection Neck: supple Respiratory: lungs clear, no respiratory distress, no accessory muscle use Cardiovascular: normal peripheral pulses, regular rate, rhythm, JVD (mild) Gastrointestinal: non tender, soft Extremities: other (chronic right lower extremity amputation) Neurologic/Psychiatric: alert, normal mood/affect Skin: warm/dry Procedures/Interventions Lumen: single (20-gauge peripheral IV placed under ultrasound guidance. Sterile gloves and sterile gel were used on the probe, skin was prepped with chlorhexidine. Catheter was placed in right AC, good blood return and fluid flow. No observed complications. Sterile dressing applied.) Progress/Results/Core Measures Suspected Sepsis SIRS Temperature: Pulse: Respiratory Rate: Laboratory Tests 05/30/18 14:55: White Blood Count 6.6 Blood Pressure / Mean: Laboratory Tests 05/30/18 14:55: Creatinine 0.96, INR Comment 1.1, Platelet Count 232, Total Bilirubin 0.5 Results/Orders Lab Results Laboratory Tests Test 05/30/18 14:55 Range/Units White Blood Count 6.6 4.3-11.0 10^3/uL Red Blood Count 4.51 4.35-5.85 10^6/uL Hemoglobin 11.7 11.5-16.0 G/DL Hematocrit 37 35-52 % Mean Corpuscular Volume 83 80-99 FL Mean Corpuscular Hemoglobin 26 25-34 PG Mean Corpuscular Hemoglobin Concent 31 L 32-36 G/DL Red Cell Distribution Width 14.4 10.0-14.5 % Platelet Count 232 130-400 10^3/uL Mean Platelet Volume 9.5 7.4-10.4 FL Neutrophils (%) (Auto) 52 42-75 % Lymphocytes (%) (Auto) 32 12-44 % Monocytes (%) (Auto) 14 H 0-12 % Eosinophils (%) (Auto) 1 0-10 % Basophils (%) (Auto) 1 0-10 % Neutrophils # (Auto) 3.4 1.8-7.8 X 10^3 Lymphocytes # (Auto) 2.1 1.0-4.0 X 10^3 Monocytes # (Auto) 0.9 0.0-1.0 X 10^3 Eosinophils # (Auto) 0.1 0.0-0.3 10^3/uL Basophils # (Auto) 0.1 0.0-0.1 10^3/uL Prothrombin Time 15.0 H 12.2-14.7 SEC INR Comment 1.1 0.8-1.4 Activated Partial Thromboplast Time 34 24-35 SEC Sodium Level 137 135-145 MMOL/L Potassium Level 3.8 3.6-5.0 MMOL/L Chloride Level 98 98-107 MMOL/L Carbon Dioxide Level 27 21-32 MMOL/L Anion Gap 12 5-14 MMOL/L Blood Urea Nitrogen 16 7-18 MG/DL Creatinine 0.96 0.60-1.30 MG/DL Estimat Glomerular Filtration Rate > 60 BUN/Creatinine Ratio 17 Glucose Level 109 H 70-105 MG/DL Calcium Level 10.1 8.5-10.1 MG/DL Corrected Calcium 9.9 8.5-10.1 MG/DL Total Bilirubin 0.5 0.1-1.0 MG/DL Aspartate Amino Transf (AST/SGOT) 15 5-34 U/L Alanine Aminotransferase (ALT/SGPT) 10 0-55 U/L Alkaline Phosphatase 153 H 40-136 U/L Troponin T 15 H <=10 NG/L Pro-B-Type Natriuretic Peptide 332.3 H <75.0 PG/ML Total Protein 7.0 6.4-8.2 GM/DL Albumin 4.2 3.2-4.5 GM/DL My Orders Orders - FAIZA JUAREZ DO Cbc With Automated Diff (05/30/18 13:56) Chest 1 View Ap/Pa Only (05/30/18 13:56) Ekg Tracing (05/30/18 13:56) Comprehensive Metabolic Panel (05/30/18 13:56) Protime With Inr (05/30/18 13:56) Partial Thromboplastin Time (05/30/18 13:56) O2 (05/30/18 13:56) Monitor-Rhythm Ecg Trace Only (05/30/18 13:56) Ed Iv/Invasive Line Start (05/30/18 13:56) Troponin T (05/30/18 13:56) Probnp Fs (05/30/18 13:56) Vital Signs/I&O 05/30/18 05/30/18 13:15 13:15 Temp 99.5 Pulse 87 Resp 20 B/P (MAP) 117/72 (87) Pulse Ox 98 98 O2 Delivery Nasal Cannula O2 Flow Rate 2.00 2.00 Capillary Refill : Progress Note : Progress Note Workup in the emergency department is unremarkable. Patient feels comfortable with outpatient follow-up, see consultation note below. Consults Consults : Consults Notes At 4:45 PM I spoke to Dr. Yeager from cardiology at [facility] where patient goes for her care. She feels that patient can safely be discharged to follow up in clinic. This seems reasonable as patient appears comfortable, x- ray shows no pulmonary edema or infiltrate, her labs are slightly improved actually from her last visit. I did also discuss the placement of the lead in the right side of the heart, Dr. Yeager felt that no intervention needed to be done regarding this finding, I also reviewed patient's recent x-rays and lead was in similar location at that time as well. Departure Impression Primary Impression: Dyspnea Additional Impression: Elevated brain natriuretic peptide (BNP) level Disposition: 01 HOME, SELF-CARE Condition: Stable Departure-Patient Inst. Referrals: NO,LOCAL PHYSICIAN (PCP/Family) Primary Care Physician Patient Instructions: Shortness of Breath (Dyspnea) (DC) FAIZA JUAREZ DO May 30, 2018 13:56
--- NOTE | 2018-05-30 14:00 | NUR ---
LAB CALLED TO DRAW BLOOD, DELAY LAB PERSONNEL BUSY.
--- NOTE | 2018-05-30 14:29 | NUR ---
LAB HERE TO ATTEMPT BLOOD DRAW. IS INSTRUCTING HE WILL ATTEMPT AN ULTRASOUND GUIDED IV START WITH ATTEMPT FOR LABS.
--- NOTE | 2018-05-30 14:54 | Diagnostic Imaging Report ---
INDICATION: Shortness of breath, palpitations. TECHNIQUE: Single view chest at 2:21 PM. CORRELATION STUDY: 04/21/2018. FINDINGS: Left-sided AICD remains in place. Heart size and mediastinum are stable. Mediastinal configuration is unchanged. The lead over the right heart margin tip does extend to approximately the level of the cardiac margins. Vasculature within normal limits. Lung sanchez remain relatively clear. IMPRESSION: 1. Relative stable chest demonstrating no acute abnormality. 2. It is noted that the lead projecting over the right heart margin does extend likely at least to the margins of the cardiac surface. Dictated by: Dictated on workstation # [id number]
--- NOTE | 2018-05-30 14:55 | NUR ---
ASSISTED DR JUAREZ WITH BEDSIDE ULTRASOUND GUIDED PLACEMENT OF 20 GA IN RIGHT AC. LABS DRAWN AT THIS TIME.
[2018-05-30 15:06] LABS: BASOPHILS % (AUTO) 1 % (0-10); EOSINOPHILS % (AUTO) 1 % (0-10); HEMATOCRIT 37 % (35-52); HEMOGLOBIN 11.7 G/DL (11.5-16.0); LYMPHOCYTES # (AUTO) 2.1 X 10^3 (1.0-4.0); LYMPHOCYTES % (AUTO) 32 % (12-44); MEAN CORPUSCULAR HEMOGLOBIN 26 PG (25-34); MEAN CORPUSCULAR HGB CONC 31 G/DL (32-36); MEAN CORPUSCULAR VOLUME 83 FL (80-99); MEAN PLATELET VOLUME 9.5 FL (7.4-10.4); MONOCYTES % (AUTO) 14 % (0-12); NEUTROPHILS # (AUTO) 3.4 X 10^3 (1.8-7.8); NEUTROPHILS % (AUTO) 52 % (42-75); PLATELET COUNT 232 10^3/uL (130-400); RED CELL DISTRIBUTION WIDTH 14.4 % (10.0-14.5); WHITE BLOOD COUNT 6.6 10^3/uL (4.3-11.0)
[2018-05-30 15:07] LABS: BASOPHILS # (AUTO) 0.1 10^3/uL (0.0-0.1); EOSINOPHILS # (AUTO) 0.1 10^3/uL (0.0-0.3); MONOCYTES # (AUTO) 0.9 X 10^3 (0.0-1.0)
[2018-05-30 15:26] LABS: INR 1.1 (0.8-1.4)
[2018-05-30 15:48] LABS: POTASSIUM 3.8 MMOL/L (3.6-5.0); SODIUM 137 MMOL/L (135-145)
[2018-05-30 15:49] LABS: ALANINE AMINOTRANSFERASE 10 U/L (0-55); ALBUMIN 4.2 GM/DL (3.2-4.5); ALKALINE PHOSPHATASE 153 U/L (40-136); BILIRUBIN,TOTAL 0.5 MG/DL (0.1-1.0); BUN/CREATININE RATIO 17; CALCIUM 10.1 MG/DL (8.5-10.1); CARBON DIOXIDE 27 MMOL/L (21-32); CHLORIDE 98 MMOL/L (98-107); CREATININE SERUM 0.96 MG/DL (0.60-1.30); GFR ESTIMATED > 60; GLUCOSE 109 MG/DL (70-105)
--- NOTE | 2018-05-30 16:00 | NUR ---
ER IS BUSY, PT PENDING PHYSICIAN ROUNDING AND REVIEW OF PENDING LAB RESULTS.
[2018-05-30 17:05] VITALS: BP 104/57
--- NOTE | 2018-05-30 17:05 | NUR ---
PT DISCHARGED TO HOME AFTER REVIEW OF HOME INSTRUCTIONS REVIEWED.
[2018-05-31] MEDS ORDERED: PRD10T PO (20:32)
== END 2018-05-30 17:05 | disposition home or self-care (01) ==
LOC: EDUNIT# 13:20 → ER FS 13:21
DX: R06.00 Dyspnea, unspecified (principal); R79.89 Other specified abnormal findings of blood chemistry; I48.91 Unspecified atrial fibrillation; J44.9 Chronic obstructive pulmonary disease, unspecified; I25.2 Old myocardial infarction; E11.9 Type 2 diabetes mellitus without complications; F17.210 Nicotine dependence, cigarettes, uncomplicated; Z95.810 Presence of automatic (implantable) cardiac defibrillator; Z79.01 Long term (current) use of anticoagulants; Z99.81 Dependence on supplemental oxygen; Z88.8 Allergy status to other drugs, medicaments and biological substances; Z88.5 Allergy status to narcotic agent; Z91.041 Radiographic dye allergy status; Z91.048 Other nonmedicinal substance allergy status
CPT/HCPCS: 36415; 71045; 80053; 83880; 84484; 85025; 85610; 85730; 93005; 93041

== ENCOUNTER 2018-05-31 18:54 | Emergency (ER) | payer MEDICARE, MEDICAID ==
[~2018-05-31] VITALS: Ht 170.2 cm; Wt 83.9 kg
[2018-05-31] MEDS ORDERED: RT-ALBUTEROL SULF 2.5 MG/3 ML PRE-MIX VIAL INH STA (18:59)
[2018-05-31] MEDS ORDERED: RT-ALBUTEROL/IPRATROPIUM 3 ML (DUONEB) VIAL INH ONE (19:00)
--- NOTE | 2018-05-31 19:08 | ED Respiratory ---
General Stated Complaint: SOB Source: patient, EMS, RN notes reviewed, old records Exam Limitations: no limitations History of Present Illness Date Seen by Provider: May 31, 2018 Time Seen by Provider: 18:55 Initial Comments Patient presents to the ER by EMS from home with chief complaint of shortness of breath. 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 She has a history of COPD and CHF. She says today she was sitting at home feeling short of breath and her home health nurse came by to check on her and noted that she was short of breath so they called 911. They have albuterol treatments home but she did not take any. EMS started a DuoNeb and after that she felt better. She said she was so weak she could not reach for a DuoNeb to give herself a breathing treatment. She was here in the ER yesterday seen by another ER physician treated evaluated and allowed to go home. She says she wished she would've taken his offer to go to [place] now because she does not feel like she's getting any better. She's not having a productive cough fevers chills nausea vomiting diarrhea. She states that she usually takes DuoNeb 3 times a day and her last dose was about 11:00 in the morning. She says they usually last about 3 or 4 hours before she starts getting short of breath again. She did not think to take an extra DuoNeb prior to calling 911. She has a history of atrial fibrillation on Eliquis status post pacemaker placement. Denies any chest pain. She's been on doxycycline for a productive cough for the past 3 or 4 days per primary care. She is not having chest pain yesterday. She wears her oxygen at all times and is at baseline use. EMS reports she had a oxygen saturation of 90-91% when they arrived. 97-99% after DuoNeb. Yesterday the patient's white count 6000, BNP of 332 and creatinine and other functions normal. She had an unremarkable, stable chest x-ray. ER physician noted that her labs were better than previous visits and so I spoke with Dr. Yeager, cardiology at [facility] but the patient attends for her cardiology care and they both agreed that the patient should follow up outpatient at this time. Allergies and Home Medications Allergies Coded Allergies: albuterol (Verified Allergy, Severe, 2/21/19) Heart Racing morphine (Verified Allergy, Mild, 03/31/18) Nausea Vomiting Uncoded Allergies: IVP DYE (Allergy, Unknown, 03/31/18) PLASTIC TAPE (Allergy, Unknown, 03/31/18) Home Medications Prednisone 10 Mg Tab, 10 MG PO DAILY Prescribed by: GANGA HALL on 05/31/182031 Patient Home Medication List Home Medication List Reviewed: Yes Review of Systems Review of Systems Constitutional: No chills, No diaphoresis, No fever EENTM: No hearing loss, No ear pain Respiratory: cough, short of breath, wheezing Cardiovascular: No chest pain, No edema, No palpitations Gastrointestinal: No abdominal pain, No constipation, No diarrhea, No nausea Genitourinary: No dysuria, No frequency Musculoskeletal: No back pain, No joint pain Past Xzlcuey-Wyurby-Ifbrmy Hx Patient Social History Smoking Status: Current Everyday Smoker Type Used: Cigarettes 2nd Hand Smoke Exposure: Yes Recent Foreign Travel: No Contact w/Someone Who Travel: No Recent Hopitalizations: No Immunizations Up To Date Date of Influenza Vaccine: Nov 08, 2018 Seasonal Allergies Seasonal Allergies: No Past Medical History Surgeries: Yes Amputation, Defibrillator, Pacemaker Respiratory: Yes COPD Currently Using CPAP: No Currently Using BIPAP: No Cardiac: Yes Atrial Fibrillation, Heart Attack, Palpitations Neurological: No Genitourinary: No Gastrointestinal: No Musculoskeletal: Yes Amputee Endocrine: Yes Diabetes, Non-Insulin dep HEENT: No Cancer: No Psychosocial: No Integumentary: No Blood Disorders: No Adverse Reaction/Blood Tranf: No Physical Exam Vital Signs - First Documented 05/31/18 18:55 Temp 98.1 Pulse 81 Resp 24 B/P (MAP) 130/87 (101) O2 Delivery Nasal Cannula O2 Flow Rate 4.00 Capillary Refill : Height: 5'7.00" Weight: 187lbs. 0oz. 84.378140pk; BMI Method:Stated General Appearance: WD/WN, no apparent distress (herbals, animated) Eyes: Bilateral Eye Normal Inspection, Bilateral Eye PERRL, Bilateral Eye EOMI HEENT: PERRL/EOMI, normal ENT inspection, TMs normal, pharynx normal Neck: full range of motion, normal inspection Respiratory: no accessory muscle use, respiratory distress (minimal), decreased breath sounds, wheezing (scant bilateral) Cardiovascular: normal peripheral pulses, regular rate, rhythm, no edema Gastrointestinal: non tender, soft Neurologic/Psychiatric: alert, normal mood/affect, oriented x 3 Skin: normal color, warm/dry Progress/Results/Core Measures Suspected Sepsis SIRS Temperature: Pulse: Respiratory Rate: Laboratory Tests 05/31/18 00:00: Blood Pressure / Mean: Laboratory Tests 05/31/18 00:00: 05/31/18 19:47: Creatinine 0.98, Total Bilirubin 0.3 Results/Orders Lab Results Laboratory Tests Test 05/31/18 00:00 05/31/18 19:47 Range/Units Sodium Level 138 135-145 MMOL/L Potassium Level 5.8 H 3.6-5.0 MMOL/L Chloride Level 100 98-107 MMOL/L Carbon Dioxide Level 27 21-32 MMOL/L Anion Gap 11 5-14 MMOL/L Blood Urea Nitrogen 14 7-18 MG/DL Creatinine 0.98 0.60-1.30 MG/DL Estimat Glomerular Filtration Rate > 60 BUN/Creatinine Ratio 14 Glucose Level 111 H 70-105 MG/DL Calcium Level 9.6 8.5-10.1 MG/DL Corrected Calcium 9.4 8.5-10.1 MG/DL Total Bilirubin 0.3 0.1-1.0 MG/DL Aspartate Amino Transf (AST/SGOT) 38 H 5-34 U/L Alanine Aminotransferase (ALT/SGPT) 12 0-55 U/L Alkaline Phosphatase 157 H 40-136 U/L Pro-B-Type Natriuretic Peptide 409.1 H <75.0 PG/ML Total Protein 6.9 6.4-8.2 GM/DL Albumin 4.3 3.2-4.5 GM/DL My Orders Orders - GANGA HALL Cbc With Automated Diff (05/31/18 18:59) Comprehensive Metabolic Panel (05/31/18 18:59) Probnp Fs (05/31/18 18:59) Chest 1 View Ap/Pa Only (05/31/18 18:59) Albuterol Pre-Mix Nebs (Rt) (Proventil (05/31/18 18:59) Albuterol/Ipra Inhalation Soln (Duoneb I (05/31/18 19:00) Svn Small Volume Nebulizer (05/31/18 18:59) Iv Heplock-Insert (Order) (05/31/18 19:02) Arterial Blood Gas (05/31/18 19:14) Prednisone Tablet (Deltasone Tablet) (05/31/18 20:45) Medications Given in ED Current Medications Medications Dose Ordered Sig/North Route Start Time Stop Time Status Last Admin Dose Admin Albuterol/ Ipratropium 3 ml ONCE ONCE INH 05/31/18 19:00 05/31/18 19:02 DC 05/31/18 19:28 3 ML Prednisone 20 mg ONCE ONCE PO 05/31/18 20:45 05/31/18 20:46 05/31/18 20:37 20 MG Vital Signs/I&O 05/31/18 18:55 Temp 98.1 Pulse 81 Resp 24 B/P (MAP) 130/87 (101) O2 Delivery Nasal Cannula O2 Flow Rate 4.00 Capillary Refill : Progress Note #1: Time: 19:12 Progress Note After reviewing the presentation and previous history sound like the patient was having exacerbation of her wheezing and tightness in her breathing and her oxygen saturation seemed to reflect that so we will obtain labs, BNP, ABG, chest x-ray to compare yesterday. She received 1 DuoNeb by EMS and seems to be talking and moving air just fine. She is on her baseline level of oxygen. Were going to give her a half dose hour-long DuoNeb while she awaits her labs and see if that improved her breathing. It does not seem she went home on steroids. Progress Note #2: Time: 20:08 Progress Note Nursing staff tried 3 times to establish an IV or get blood and were unsuccessful. We tried 3 times using ultrasound guidance to obtain access in bilateral ACs and once in the left forearm and while we were able to get a little bit of blood back the sample we sent down was hemolyzed and not useful. Patient's not showing any signs of extremist as she is with normal vital signs normal blood pressure and a sats of 100% on her DuoNeb are 96-98 on her baseline nasal cannula oxygen. I discussed with her that it sounds like she's having a COPD exacerbation and that she should try using her DuoNeb every 4 hours if necessary in between her scheduled breathing treatments. She thought this was a good idea. Let her finish her hour-long she is already sounding much improved with open aeration on both sides of her lungs. We will discuss whether a short course of low-dose steroids would be beneficial. We'll encourage her to continue taking the doxycycline as prescribed outpatient. We will obtain a chest x-ray but since there is no elevated white count or infiltrate most likely this represents a viral bronchitis/upper respiratory tract infection on top of her COPD. Progress Note #3: Time: 20:28 Progress Note Patient ran about 90% on room air so we put her back on her baseline 3 L and she went back up to 96%. Were going to allow her to transfer home on a low-dose 10 mg of prednisone a day for the next 5 days in addition to her doxycycline and follow up with her primary care provider. We've encouraged her to take her albuterol every 4 hours in between breathing treatments as necessary since that held long she thinks that last anyways Diagnostic Imaging Diagonstic Imaging: Xray Plain Films/CT/US/NM/MRI: chest (1v) Comments Chest x-ray demonstrates COPD but no acute infiltrates or other acute cardiac processes. Unchanged from yesterday. Bases are well observed. Probable underlying interstitial lung disease with prominent pulmonary arteries suggesting pulmonary arterial hypertension. No acute cardiopulmonary process evident. Reviewed: Reviewed by Me Departure Impression Primary Impression: COPD (chronic obstructive pulmonary disease) with acute bronchitis Disposition: 01 HOME, SELF-CARE Condition: Improved Departure-Patient Inst. Decision time for Depature: 20:29 Referrals: NO,LOCAL PHYSICIAN (PCP/Family) Primary Care Physician Patient Instructions: Chronic Obstructive Pulmonary Disease (COPD), Including Emphysema Add. Discharge Instructions: I think you have a viral illness since the doxycycline has not helped a lot but you you are okay to continue to take the doxycycline until completion. In addition to your scheduled 3 times a day DuoNeb you should also consider taking an extra DuoNeb every 4 hours if necessary for tightness in the chest, wheezing or shortness of air. 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 Follow-up with your primary care physician later this week or early next week for reevaluation. We invite you to return to the ER if you start to have difficulty breathing, chest pain or other worrisome symptoms. Scripts Prednisone (Prednisone) 10 Mg Tab 10 MG PO DAILY for 5 Days, #5 EA 0 Refills Prov: GANGA HALL 05/31/18 GANGA HALL May 31, 2018 19:08
--- NOTE | 2018-05-31 20:06 | NUR ---
attempted to start an iv was unable to get it, so Doctor Viktor attempted and was not able to get the iv. pt. received the breathing treatments as directed. pt is talking and her sats are 100%/
--- NOTE | 2018-05-31 20:20 | NUR ---
Doctor Viktor in to see the patient.
[2018-05-31 20:29] LABS: POTASSIUM 5.8 MMOL/L (3.6-5.0); SODIUM 138 MMOL/L (135-145)
[2018-05-31 20:30] LABS: ALANINE AMINOTRANSFERASE 12 U/L (0-55); ALBUMIN 4.3 GM/DL (3.2-4.5); ALKALINE PHOSPHATASE 157 U/L (40-136); BILIRUBIN,TOTAL 0.3 MG/DL (0.1-1.0); BUN/CREATININE RATIO 14; CALCIUM 9.6 MG/DL (8.5-10.1); CARBON DIOXIDE 27 MMOL/L (21-32); CHLORIDE 100 MMOL/L (98-107); CREATININE SERUM 0.98 MG/DL (0.60-1.30); GFR ESTIMATED > 60; GLUCOSE 111 MG/DL (70-105); TOTAL PROTEIN 6.9 GM/DL (6.4-8.2)
[2018-05-31] MEDS ORDERED: PRD10T PO (20:32)
--- NOTE | 2018-05-31 20:32 | Diagnostic Imaging Report ---
EXAM: Portable chest COMPARISON: 05/30/2018 INDICATION: Shortness of breath. FINDINGS: Implantable cardiac defibrillator device is present. Heart size appears stable. There are prominent pulmonary arteries but no findings of edema. There also appear to be likely chronic interstitial change within the lungs. There is no alveolar consolidation. There is no pneumothorax. IMPRESSION: 1. Probable underlying interstitial lung disease with prominent pulmonary arteries suggesting pulmonary arterial hypertension. No acute cardiopulmonary process evident. Dictated by: Dictated on workstation # [id number]
[2018-05-31 20:39] VITALS: BP 126/57
[2018-05-31] MEDS ORDERED: predniSONE 20 MG TAB PO ONE (20:45)
== END 2018-05-31 20:34 | disposition home or self-care (01) ==
LOC: EDUNIT# 18:54 → ER FS 18:55
DX: J44.9 Chronic obstructive pulmonary disease, unspecified (principal); I25.2 Old myocardial infarction; E11.9 Type 2 diabetes mellitus without complications; I48.91 Unspecified atrial fibrillation; F17.210 Nicotine dependence, cigarettes, uncomplicated; Z95.810 Presence of automatic (implantable) cardiac defibrillator; Z88.8 Allergy status to other drugs, medicaments and biological substances; Z88.5 Allergy status to narcotic agent; Z91.041 Radiographic dye allergy status; Z91.048 Other nonmedicinal substance allergy status; Z79.52 Long term (current) use of systemic steroids; Z79.01 Long term (current) use of anticoagulants; Z95.0 Presence of cardiac pacemaker; Z99.81 Dependence on supplemental oxygen
CPT/HCPCS: 36415; 71045; 80053; 83880

== ENCOUNTER 2018-06-21 08:56 | Emergency (ER) | payer MEDICARE, MEDICAID ==
[~2018-06-21] VITALS: Ht 170.2 cm; Wt 83.9 kg
[~2018-06-21 08:56] MED LIST: PRD10T PO
[2018-06-21] MEDS ORDERED: SPIR25TA5 (09:20)
[2018-06-21] MEDS ORDERED: SACU1TAB (09:20)
[2018-06-21] MEDS ORDERED: HYDR-3924 (09:20)
[2018-06-21] MEDS ORDERED: IPRA3AMP31 (09:20)
[2018-06-21] MEDS ORDERED: FLUT1AER (09:20)
[2018-06-21] MEDS ORDERED: ESCI10TA55 (09:20)
[2018-06-21] MEDS ORDERED: ALPR0.5T7 (09:20)
[2018-06-21] MEDS ORDERED: OXYCOD/APAP (09:20)
[2018-06-21] MEDS ORDERED: IPR14IN (09:20)
[2018-06-21] MEDS ORDERED: LEVO25TA5 (09:20)
[2018-06-21] MEDS ORDERED: ONDANSETRON 4 MG (ZOFRAN) ORAL DISSOLVE TAB PO STA (09:49)
[2018-06-21] MEDS ORDERED: HYDROcodone/APAP 5 MG/325 MG (LORTAB) TAB PO ONE (10:00)
[2018-06-21 10:10] LABS: HEMATOCRIT 37 % (35-52); HEMOGLOBIN 11.2 G/DL (11.5-16.0); MEAN CORPUSCULAR HEMOGLOBIN 26 PG (25-34); WHITE BLOOD COUNT 9.1 10^3/uL (4.3-11.0)
[2018-06-21 10:11] LABS: BASOPHILS % (AUTO) 0 % (0-10); EOSINOPHILS # (AUTO) 0.1 10^3/uL (0.0-0.3); EOSINOPHILS % (AUTO) 1 % (0-10); LYMPHOCYTES % (AUTO) 33 % (12-44); MEAN CORPUSCULAR HGB CONC 30 G/DL (32-36); MEAN CORPUSCULAR VOLUME 88 FL (80-99); MEAN PLATELET VOLUME 9.9 FL (7.4-10.4); MONOCYTES # (AUTO) 0.9 X 10^3 (0.0-1.0); MONOCYTES % (AUTO) 10 % (0-12); NEUTROPHILS % (AUTO) 55 % (42-75); PLATELET COUNT 238 10^3/uL (130-400); RED CELL DISTRIBUTION WIDTH 14.8 % (10.0-14.5)
--- NOTE | 2018-06-21 10:20 | NUR ---
unable to interrogate patient pacemaker with our [employer] device. Patient states she has a [employer] pacemaker. Notified Dr White.
--- NOTE | 2018-06-21 10:20 | Diagnostic Imaging Report ---
CLINICAL INDICATION: Patient with cough, shortness of breath and spitting up mucus. EXAM: Chest x-ray PA and lateral views. COMPARISONS: Chest x-ray dated 05/31/2018. FINDINGS: There is interval development of mild cardiomegaly. Pulmonary vasculature is within normal limits. There is mild bibasilar increased airspace opacities which may represent atelectasis versus infiltrate. There is no pleural effusion or pneumothorax. Cardiac pacemaker/AICD is again seen. There are small spurs involving the thoracic spine. IMPRESSION: 1: There is slight increased mild bibasilar atelectasis versus infiltrate. 2: There is interval development of mild cardiomegaly without significant pulmonary vascular congestion. 3: The remainder of this exam shows no significant interval change compared to the prior study of comparison. Dictated by: Dictated on workstation # [id number]
[2018-06-21 10:38] LABS: ALANINE AMINOTRANSFERASE 10 U/L (0-55); ALKALINE PHOSPHATASE 142 U/L (40-136); BILIRUBIN,TOTAL 0.2 MG/DL (0.1-1.0); BUN/CREATININE RATIO 19; CALCIUM 9.2 MG/DL (8.5-10.1); CARBON DIOXIDE 24 MMOL/L (21-32); CHLORIDE 108 MMOL/L (98-107); CREATININE SERUM 0.94 MG/DL (0.60-1.30); GFR ESTIMATED > 60; GLUCOSE 120 MG/DL (70-105); POTASSIUM 3.8 MMOL/L (3.6-5.0); SODIUM 144 MMOL/L (135-145)
[2018-06-21 10:39] LABS: ALBUMIN 3.8 GM/DL (3.2-4.5); TOTAL PROTEIN 6.3 GM/DL (6.4-8.2)
[2018-06-21] MEDS ORDERED: ATOR40TA70 (11:03)
[2018-06-21] MEDS ORDERED: APIX5TAB (11:03)
[2018-06-21] MEDS ORDERED: METF500T8 (11:03)
[2018-06-21] MEDS ORDERED: ACYC400T (11:03)
[2018-06-21] MEDS ORDERED: METO-395 (11:03)
[2018-06-21] MEDS ORDERED: RANI150T11 (11:03)
[2018-06-21] MEDS ORDERED: FUROSEMIDE 40 MG/4 ML INJ (LASIX) IVP ONE (12:00)
--- NOTE | 2018-06-21 12:01 | ED Respiratory ---
General Chief Complaint: Respiratory Problems Stated Complaint: SOB Nursing Triage Note: Has had cough and sputum production since last wednesday, was put on prednisone last wednesday by her doctor in [place]. Is having shortness of air today and starting feeling palpitations around 0830 this morning. Home health care nurse told patient she was tachycardic with a HR of 103 and called EMS to bring her to ED. Source: patient, EMS Exam Limitations: no limitations History of Present Illness Date Seen by Provider: June 21, 2018 Time Seen by Provider: 11:00 Initial Comments Patient is a 62 year old AA female with history of CHF, COPD who is on home oxygen at 3 L who presents with remittent palpitations's morning. Patient describes pounding and irregular heartbeat which was self-limited. Denies chest pain, does report continued shortness of breath. Patient was seen by her doctor in [place] on Wednesday and prescribed prednisone for treatment of COPD. No fever chills or sweats or increased inhaler use. On EMSs arrival, patient's heart rate was 103 and regular. Patient reports missing her medications including diuretic. Reports increased right BKA stump swelling. No other acute symptoms or complaints. Patient resting comfortably in bed upon entering the room. Timing/Duration: this morning Severity: mild Prior Episodes/Possible Cause: occasional episodes Modifying Factors: Improves With Oxygen, Improves With Rest Associated Symptoms: denies symptoms Allergies and Home Medications Allergies Coded Allergies: albuterol (Verified Allergy, Severe, 06/21/18) Heart Racing morphine (Verified Allergy, Mild, 06/21/18) Nausea Vomiting Uncoded Allergies: IVP DYE (Allergy, Unknown, 03/31/18) PLASTIC TAPE (Allergy, Unknown, 03/31/18) Home Medications Azithromycin 250 Mg Tablet, 250 MG PO UD TAKE 2 TABLETS TODAY, THEN TAKE 1 TABLET DAILY FOR 4 MORE DAYS Prescribed by: KEYSHAWN LANDA on 06/21/18 120 Furosemide 40 Mg Tablet, 40 MG PO DAILY Prescribed by: KEYSHAWN LANDA on 06/21/18 120 Prednisone 10 Mg Tab, 10 MG PO DAILY Prescribed by: GANGA HALL on 05/31/182031 Patient Home Medication List Home Medication List Reviewed: Yes Review of Systems Review of Systems Constitutional: no symptoms reported EENTM: see HPI, no symptoms reported Respiratory: no symptoms reported, see HPI, cough Cardiovascular: see HPI, edema, palpitations Gastrointestinal: no symptoms reported Genitourinary: no symptoms reported Skin: no symptoms reported Psychiatric/Neurological: No Symptoms Reported Hematologic/Lymphatic: No Symptoms Reported Immunological/Allergic: no symptoms reported Past Mnshmgy-Hmbiuj-Eiqfqs Hx Past Med/Social Hx: Reviewed Nursing Past Med/Soc Hx Patient Social History Alcohol Use: Denies Use Recreational Drug Use: No Type Used: Cigarettes 2nd Hand Smoke Exposure: Yes Recent Foreign Travel: No Contact w/Someone Who Travel: No Recent Infectious Disease Expo: No Recent Hopitalizations: No Physical Abuse: No Sexual Abuse: No Mistreated: No Fear: No Immunizations Up To Date Date of Influenza Vaccine: Nov 08, 2018 Seasonal Allergies Seasonal Allergies: No Past Medical History Surgeries: Yes Amputation, Defibrillator, Pacemaker Respiratory: Yes COPD Currently Using CPAP: No Currently Using BIPAP: No Cardiac: Yes Atrial Fibrillation, Heart Attack, Palpitations Neurological: No Genitourinary: No Gastrointestinal: No Musculoskeletal: Yes Amputee Endocrine: Yes Diabetes, Non-Insulin dep HEENT: No Cancer: No Psychosocial: No Integumentary: No Blood Disorders: No Adverse Reaction/Blood Tranf: No Physical Exam Vital Signs - First Documented 06/21/18 09:05 Temp 98.1 Pulse 88 Resp 20 B/P (MAP) 140/63 (88) Pulse Ox 98 O2 Flow Rate 3.00 Capillary Refill : Less Than 3 Seconds Height: 5'7.00" Weight: 185lbs. 0oz. 83.453895ck; BMI Method:Stated General Appearance: WD/WN, no apparent distress HEENT: PERRL/EOMI, normal ENT inspection Neck: supple Respiratory: chest non-tender, lungs clear, no respiratory distress Cardiovascular: other Gastrointestinal: soft Extremities: other (right BKA) Neurologic/Psychiatric: public service representative II-XII nml as tested, no motor/sensory deficits, alert Skin: normal color Progress/Results/Core Measures Suspected Sepsis Recent Fever Within 48 Hours: No Infection Criteria Present: Suspected New Infection New/Unexplained Altered Menta: No Sepsis Screen: No Definite Risk SIRS Temperature:98.1 Pulse: 88 Respiratory Rate: 20 Laboratory Tests 06/21/18 10:03: White Blood Count 9.1 Blood Pressure 140 /63 Mean: 88 Laboratory Tests 06/21/18 10:03: Creatinine 0.94, Platelet Count 238, Total Bilirubin 0.2 Results/Orders Lab Results Laboratory Tests Test 06/21/18 10:03 Range/Units White Blood Count 9.1 4.3-11.0 10^3/uL Red Blood Count 4.26 L 4.35-5.85 10^6/uL Hemoglobin 11.2 L 11.5-16.0 G/DL Hematocrit 37 35-52 % Mean Corpuscular Volume 88 80-99 FL Mean Corpuscular Hemoglobin 26 25-34 PG Mean Corpuscular Hemoglobin Concent 30 L 32-36 G/DL Red Cell Distribution Width 14.8 H 10.0-14.5 % Platelet Count 238 130-400 10^3/uL Mean Platelet Volume 9.9 7.4-10.4 FL Neutrophils (%) (Auto) 55 42-75 % Lymphocytes (%) (Auto) 33 12-44 % Monocytes (%) (Auto) 10 0-12 % Eosinophils (%) (Auto) 1 0-10 % Basophils (%) (Auto) 0 0-10 % Neutrophils # (Auto) 5.0 1.8-7.8 X 10^3 Lymphocytes # (Auto) 3.0 1.0-4.0 X 10^3 Monocytes # (Auto) 0.9 0.0-1.0 X 10^3 Eosinophils # (Auto) 0.1 0.0-0.3 10^3/uL Basophils # (Auto) 0.0 0.0-0.1 10^3/uL Sodium Level 144 135-145 MMOL/L Potassium Level 3.8 3.6-5.0 MMOL/L Chloride Level 108 H 98-107 MMOL/L Carbon Dioxide Level 24 21-32 MMOL/L Anion Gap 12 5-14 MMOL/L Blood Urea Nitrogen 18 7-18 MG/DL Creatinine 0.94 0.60-1.30 MG/DL Estimat Glomerular Filtration Rate > 60 BUN/Creatinine Ratio 19 Glucose Level 120 H 70-105 MG/DL Calcium Level 9.2 8.5-10.1 MG/DL Corrected Calcium 9.4 8.5-10.1 MG/DL Total Bilirubin 0.2 0.1-1.0 MG/DL Aspartate Amino Transf (AST/SGOT) 11 5-34 U/L Alanine Aminotransferase (ALT/SGPT) 10 0-55 U/L Alkaline Phosphatase 142 H 40-136 U/L Troponin T 15 H <=10 NG/L Pro-B-Type Natriuretic Peptide 1282.0 H <75.0 PG/ML Total Protein 6.3 L 6.4-8.2 GM/DL Albumin 3.8 3.2-4.5 GM/DL My Orders Orders - KEYSHAWN LANDA DO Cbc With Automated Diff (06/21/18 09:26) Comprehensive Metabolic Panel (06/21/18 09:26) Troponin T (06/21/18 09:26) Chest Pa/Lat (2 View) (06/21/18 09:26) Ekg Tracing (06/21/18 09:26) Ondansetron Oral Dissolve Tab (Zofran (06/21/18 09:49) Hydrocodone/Apap 5/325 Tablet (Lortab 5 (06/21/18 10:00) Probnp Fs (06/21/18 09:49) Thyroid Stimulating Hormone (06/21/18 10:03) Furosemide Injection (Lasix Injection) (06/21/18 12:00) Medications Given in ED Current Medications Medications Dose Ordered Sig/North Route Start Time Stop Time Status Last Admin Dose Admin Acetaminophen/ Hydrocodone Bitart 1 tab ONCE ONCE PO 06/21/18 10:00 06/21/18 10:01 DC 06/21/18 10:04 1 TAB Furosemide 40 mg ONCE ONCE IVP 06/21/18 12:00 06/21/18 12:01 DC 06/21/18 12:23 40 MG Vital Signs/I&O 06/21/18 09:05 Temp 98.1 Pulse 88 Resp 20 B/P (MAP) 140/63 (88) Pulse Ox 98 O2 Flow Rate 3.00 Capillary Refill : Less Than 3 Seconds Blood Pressure Mean: 88 Departure Communication (Admissions) Unable to obtain pacemaker interrogation due to brand incompatibility. Patient monitored, is in a V paced rhythm with occasional PVC. Vital signs otherwise stable on monitor. Patient does not require additional supplemental oxygen other than home use of 3 L. Diuretic given. Chest x-ray reviewed, equivocal findings, will creased diuresis for the next 3 days and placed on Z-Willian with instructions to follow up with local PCP for reevaluation later this week and to contact history faculty member office for remote interrogation of pacemaker.. Return precautions reviewed. Patient verbalizes understanding. Discharge instructions prior to departure. Impression Primary Impression: Palpitations Additional Impressions: Premature ventricular contractions Congestive heart failure Chronic respiratory failure with hypoxia Disposition: 20 Condition: Improved Departure-Patient Inst. Referrals: NO,LOCAL PHYSICIAN (PCP/Family) Primary Care Physician Patient Instructions: Heart Failure, Adult, Palpitations (DC), Ventricular Premature Beats Add. Discharge Instructions: Please take 80 mg of Torsemide daily for the next 3 days and antibiotics as prescribed and follow-up with her PCP later this week for reevaluation. Please contact your history faculty member's office this afternoon and notify them of the ED visit and schedule interrogation of pacemaker for evaluation of arrhythmia. Return to the ED if new or worsening symptoms. All discharge instructions reviewed with patient and/or family. Voiced understanding. Scripts Azithromycin (Zithromax) 250 Mg Tablet 250 MG PO UD, #6 TAB TAKE 2 TABLETS TODAY, THEN TAKE 1 TABLET DAILY FOR 4 MORE DAYS Prov: KEYSHAWN LANDA DO 06/21/18 Furosemide (Lasix) 40 Mg Tablet 40 MG PO DAILY for 3 Days, TAB Prov: KEYSHAWN LANDA DO 06/21/18 KEYSHAWN LANDA DO June 21, 2018 12:01
[2018-06-21] MEDS ORDERED: AZIT250T PO (12:08)
[2018-06-21] MEDS ORDERED: FURO-124 PO (12:08)
[2018-06-21 13:19] VITALS: BP 124/80
== END 2018-06-21 13:20 | disposition expired ==
LOC: EDUNIT# 08:56 → ER FS 09:04
DX: R00.2 Palpitations (principal); I49.3 Ventricular premature depolarization; J96.11 Chronic respiratory failure with hypoxia; I50.9 Heart failure, unspecified; J44.9 Chronic obstructive pulmonary disease, unspecified; I48.91 Unspecified atrial fibrillation; I25.2 Old myocardial infarction; E11.9 Type 2 diabetes mellitus without complications; Z79.52 Long term (current) use of systemic steroids; Z89.511 Acquired absence of right leg below knee; Z88.8 Allergy status to other drugs, medicaments and biological substances; Z88.5 Allergy status to narcotic agent; Z91.041 Radiographic dye allergy status; Z91.048 Other nonmedicinal substance allergy status; Z77.22 Contact with and (suspected) exposure to environmental tobacco smoke (acute) (chronic); Z95.810 Presence of automatic (implantable) cardiac defibrillator
CPT/HCPCS: 36415; 71046; 80053; 83880; 84443; 84484; 85025; 93005; 96374

== ENCOUNTER 2018-07-07 23:36 | Emergency (ER) | payer MEDICARE, MEDICAID ==
[~2018-07-07] VITALS: Ht 170.2 cm; Wt 83.0 kg
[~2018-07-07 23:36] MED LIST changes: +ACYC400T; +ALPR0.5T7; +APIX5TAB; +ATOR40TA70; +AZIT250T PO; +ESCI10TA55; +FLUT1AER; +FURO-124 PO; +HYDR-3924; +IPR14IN; +IPRA3AMP31; +LEVO25TA5; +METF500T8; +METO-395; +OXYCOD/APAP; +RANI150T11; +SACU1TAB; +SPIR25TA5
--- OUTSIDE RECORDS SUMMARY | 2018-07-07 23:48 | XMS REPORT ---
Author Author Jimbo Christianson Organization [facility] Address [address] [place] [address] Care Team Providers Care Back Tender Paper Machine Name Role Phone Jimbo Christianson Unavailable PROBLEMS Type Condition ICD9-CM Code DOA03-AA Code Onset Dates Condition Status SNOMED Code Problem Chronic apical periodontitis K04.5 Active 1750692 Problem Nicotine use disorder F17.200 Active 786664649 Problem Bipolar disorder, current episode mixed, unspecified F31.60 Active 27639067 Problem 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 F41.1 Active 27126200 Problem Gingivitis K05.10 Active 48977456 ALLERGIES Substance Reaction Event Type Date Status morphine Unknown Drug Allergy June, Active Iodine Unknown Drug Allergy June, Active Adhesive Tape Rash Non Drug Allergy June, Active ENCOUNTERS Encounter Location Date Diagnosis [facility] [address] [place] [id number] [place] [phone] Sep, [facility] [address] [place] [address] June, 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 F41.[address] [facility] [address] [place], [place] [id number] [place] [phone] Mar, 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 F41.1 and Nicotine use disorder F17.200 [facility] [address] [place] [id number] [place] [address] Dec, 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 F41.1 [facility] [address] [place] [address] Sep, 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 F41.1 [facility] [address] [place] [id number] [place] [phone] June, 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 [address] [place] [address] June, [facility] [address] [place] [address] [place] [address] Mar, 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 F41.1 [facility] [address] [place] [address] Mar, [facility] [address] [place] [address] Dec, 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 F41.[address] [place] [address] [id number] Oct, Dental [address] [place] [address] [id number] Oct, Encounter for dental examination Z01.20 ; Dental caries extending into dentin K02.62 ; Chronic apical periodontitis K04.5 ; Periodontosis K05.4 and Gingivitis K05.10 Outpatient Adult [address] [place] [address] Oct, [facility] [address] [place] [address] Sep, 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 F41.1 Outpatient Adult [address] [place] [address] May, [facility] [address] [place] [address] May, Bipolar disorder, current episode mixed, unspecified F31.60 [facility] [address] [place] [address] Feb, [facility] [address] [place] [address] Jan, Bipolar disorder, current episode mixed, unspecified F31.60 Outpatient Adult [address] [place] [address] Jan, Bipolar disorder, current episode mixed, unspecified F31.60 Outpatient Adult [address] [place] [address] Dec, Bipolar disorder, current episode mixed, unspecified F31.60 Outpatient Adult [address] [place] [address] Nov, Bipolar disorder, current episode mixed, unspecified F31.60 [facility] [address] [place] [id number] Nov, [facility] [address] [place] [id number] [place] [address] Oct, Bipolar disorder, current episode mixed, unspecified F31.60 Outpatient Adult [address] [place] [address] Oct, Bipolar disorder, current episode mixed, unspecified F31.60 Outpatient Adult [address] [place] [address] Sep, Bipolar disorder, current episode mixed, unspecified F31.60 [facility] [address] [place] [id number] [place] [address] Apr, Bipolar disorder, current episode mixed, unspecified F31.60 [facility] [address] [place] [address] Apr, Intake Services [address] [place] [address] Apr, [facility] [address] [place] [address] Apr, Bipolar disorder, current episode mixed, unspecified F31.60 and Anxiety F41.9 Outpatient Adult [address] [place] [address] Apr, Bipolar disorder, current episode mixed, unspecified F31.60 and Post-traumatic stress disorder, chronic F43.12 Outpatient Adult [address] [place] [address] Feb, Bipolar disorder, current episode mixed, unspecified F31.60 and Post-traumatic stress disorder, chronic F43.12 Outpatient Adult [address] [place] [address] Sep, Bipolar affective, mixed 296.60 and Posttraumatic stress disorder 309.81 [facility] [address] [place] [id number] [place] [address] Sep, Bipolar affective, mixed 296.60 and Anxiety disorder 300.00 [facility] [address] [place] [id number] [place] [address] Jul, Bipolar affective, mixed 296.60 and Anxiety disorder 300.00 Outpatient Adult [address] [place] [address] June, Posttraumatic stress disorder 309.81 and Bipolar affective, mixed 296.60 [facility] [address], [place] [address] June, Outpatient Adult [address] [place] [address] June, Bipolar affective, mixed 296.60 and Posttraumatic stress disorder 309.81 [facility] Outpatient [address] [address] Jan, Bipolar affective, mixed 296.60 and Posttraumatic stress disorder 309.81 [facility] Psych [place] [id number] [place] [address] Jan, Bipolar affective, mixed 296.60 and Posttraumatic stress disorder 309.81 [facility] Outpatient [address] [address] Dec, Bipolar affective, mixed 296.60 and Posttraumatic stress disorder 309.81 [facility] Outpatient [address] [address] Nov, Bipolar affective, mixed 296.60 and Posttraumatic stress disorder 309.[address] [place] [address] [id number] Nov, Cardiomyopathy 425.4 ; Bipolar affective, mixed 296.60 ; COPD (chronic obstructive pulmonary disease) 496 and Chronic back pain greater than 3 months duration [address] [place] [address] [id number] Oct, [facility] Outpatient [address] [address] Oct, Bipolar affective, mixed 296.60 and Posttraumatic stress disorder 309.81 [facility] [address], [place] [address] Sep, Bipolar affective, mixed 296.60 and Posttraumatic stress disorder 309.81 Outpatient Adult [address] [place] [address] Sep, Bipolar affective, mixed 296.60 and Posttraumatic stress disorder 309.81 [facility] Outpatient [address] [address] June, Bipolar affective, mixed 296.60 and Posttraumatic stress disorder 309.81 [facility] Psych [address], [place] [address] Apr, Bipolar affective, mixed 296.60 ; Posttraumatic stress disorder 309.81 and Insomnia, unspecified 780.52 Outpatient Adult [address] [place] [address] Dec, Bipolar affective, mixed 296.60 and Posttraumatic stress disorder 309.81 [facility] [address] [place] [address] Nov, Bipolar affective, mixed 296.60 ; Posttraumatic stress disorder 309.81 ; Hypertension 401.9 ; Hyperlipidemia (Unspecified) 272.4 ; Coronary atherosclerosis due to calcified coronary lesion 414.4 ; Asthma, unspecified, unspecified status 493.90 ; Chronic pain syndrome 338.4 ; Hypothyroidism (unspecified) 244.9 ; Insomnia, unspecified 780.52 and tobacco use disorder 305.1 [facility] [address] [place] [address] [id number] Nov, [facility] [address] [place] [address] [phone] Nov, Presbyopia 367.4 [facility] [address] [place] [id number] [place] [address] Nov, [facility] [address] [place] [address] [id number] Nov, Outpatient Adult [address] [place] [address] Oct, Bipolar affective, mixed 296.60 and Posttraumatic stress disorder 309.81 [facility] [address] [place] [address] [place] [address] Sep, Bipolar affective, mixed 296.60 ; Posttraumatic stress disorder 309.81 ; Hypertension 401.9 ; Hyperlipidemia (Unspecified) 272.4 ; Coronary atherosclerosis due to calcified coronary lesion 414.4 ; Asthma, unspecified, unspecified status 493.90 ; Chronic pain syndrome 338.4 ; Hypothyroidism (unspecified) 244.9 ; Insomnia, unspecified 780.52 and tobacco use disorder 305.1 [facility] [address] [place] [address] May, Bipolar affective, mixed 296.60 ; Posttraumatic stress disorder 309.81 ; Hypertension 401.9 ; Hyperlipidemia (Unspecified) 272.4 ; Coronary atherosclerosis due to calcified coronary lesion 414.4 ; Asthma, unspecified, unspecified status 493.90 ; Chronic pain syndrome 338.4 ; Hypothyroidism (unspecified) 244.9 ; Insomnia, unspecified 780.52 ; tobacco use disorder 305.1 and Bipolar I disorder, most re cent episode (or current) mixed, unspecified 296.60 [facility] Outpatient [address] [address] May, Bipolar affective, mixed 296.60 and Posttraumatic stress disorder 309.81 [facility] Outpatient [address] [address] Apr, Bipolar I disorder, most recent episode (or current) mixed, unspecified 296.60 [facility] [address] [place] [id number] Mar, [facility] Psych [address] [id number] [address] Feb, Bipolar affective, mixed 296.60 ; Posttraumatic stress disorder 309.81 ; Hypertension 401.9 ; Hyperlipidemia (Unspecified) 272.4 ; Coronary atherosclerosis due to calcified coronary lesion 414.4 ; Asthma, unspecified, unspecified status 493.90 ; Chronic pain syndrome 338.4 ; Hypothyroidism (unspecified) 244.9 ; Insomnia, unspecified 780.52 and tobacco use disorder 305.[address] [id number] [id number] Feb, Pneumonia 486 [facility] Outpatient [address] [address] Sep, Bipolar I disorder, most recent episode (or current) mixed, unspecified 296.[address] [id number] [id number] Sep, Hyperlipidemia (Unspecified) 272.4 and Congestive heart failure 428.[address] [id number][place] [id number] Aug, [address] [id number], [place] [address] Aug, Bipolar affective, mixed 296.60 ; Posttraumatic stress disorder 309.81 ; Hypertension 401.9 ; Hyperlipidemia (Unspecified) 272.4 ; Coronary atherosclerosis due to calcified coronary lesion 414.4 ; Asthma, unspecified, unspecified status 493.90 ; Chronic pain syndrome 338.4 ; Hypothyroidism (unspecified) 244.9 ; Insomnia, unspecified 780.52 and tobacco use disorder 305.[address] [id number] [id number] Aug, [facility] Outpatient [address] [address] Aug, Major depressive disorder, recurrent episode, moderate 296.[address] [place] [address] [id number] Aug, Chronic pain syndrome 338.4 ; Asthma, unspecified, unspecified status 493.90 ; Hypothyroidism (unspecified) 244.9 ; Renal failure 586 ; Hyperlipidemia (Unspecified) 272.4 and Screening for HIV (human immunodeficiency virus) V73.89 [facility] [address] [place] [id number] [place] [address] Jul, Major depressive disorder, recurrent episode, moderate 296.32 Outpatient Adult [address] [place] [address] Jul, Major depressive disorder, recurrent episode, moderate 296.32 Outpatient Adult [address] [place] [address] Jul, Major depressive disorder, recurrent episode, moderate 296.32 [facility] [address] [place] [id number] [place] [address] Jul, Bipolar affective disorder, currently depressed, moderate 296.52 [facility] [place] [id number] [place] [address] June, Depressive disorder, not elsewhere classified 311 [...] 296.32 and Posttraumatic stress disorder 309.[address] [place] [address] [id number] June, [facility] Outpatient [address] [address] June, Major depressive disorder, recurrent episode, moderate 296.[id number] [place] [address] [id number] June, Chronic pain syndrome 338.[address] [place] [id number] May, [facility] Outpatient [address] [address] May, Major depressive disorder, recurrent episode, moderate 296.32 and Posttraumatic stress disorder 309.81 [place] [id number] [place] [address] [id number] May, HIV (human immunodeficiency virus infection) V08 ; Hyperlipidemia (Unspecified) 272.4 and Chronic pain syndrome 338.[address] [id number] Apr, Chronic pain syndrome 338.4 ; Hypertension 401.9 ; Human immunodeficiency virus [HIV] 042 and Asthma, unspecified, unspecified status 493.90 [facility] Outpatient [address] [address] Apr, Major depressive disorder, recurrent episode, moderate 296.32 [place] [id number] [place] [id number] Apr, [address] [id number] Mar, HIV (human immunodeficiency virus infection) V08 [place] [id number] [place] [address] [id number] Mar, [place] [id number] [place] [address] Mar, Anxiety state, unspecified 300.00 [place] [id number] [place] [address] [id number] Mar, Lumbago 724.2 ; Other dyspnea and respiratory abnormalities 786.09 ; Hypothyroidism (unspecified) 244.9 ; Esophageal reflux 530.81 ; Hypertension 401.9 ; Hyperlipidemia (Unspecified) 272.4 and Screening for unspecified condition V82.[address] [id number] Feb, [place] [id number] [place] [address] [id number] Feb, Lumbago 724.2 [place] [id number] [place] [address] [id number] Feb, [place] [id number] Feb, [address] [id number] [place] [address] [id number] Jan, Lumbago 724.2 and Other dyspnea and respiratory abnormalities 786.09 [facility] Outpatient [address] [address] Dec, Major depressive disorder, recurrent episode, moderate 296.32 and Posttraumatic stress disorder 309.[id number] [id number] Dec, Lumbago 724.2 ; Esophageal reflux 530.81 and Hypothyroidism (unspecified) 244.9 [facility] Psych [id number] [place] [address] Dec, Anxiety state, unspecified 300.00 [facility] Psych [id number] [place] [address] Nov, Anxiety state, unspecified 300.[id number] [place] [address] [id number] Nov, Lumbago 724.2 [facility] Outpatient [address] [address] Oct, Major depressive disorder, recurrent episode, moderate 296.32 and Posttraumatic stress disorder 309.[address] [id number], [place] [id number] Oct, [address] [id number] [place] [address] [id number] Sep, [id number] [place] [address] [id number] Sep, Lumbago 724.2 ; Unspecified urinary incontinence 788.30 and Obstructive sleep apnea (adult) (pediatric) 327.23 [facility] Outpatient [address] [address] Sep, Major depressive disorder, recurrent episode, moderate 296.32 and Posttraumatic stress disorder 309.[address] [id number], [place] [id number] Sep, [address] [id number], [place] [id number] Sep, [address] [id number], [place] [id number] Aug, [facility] Psych [address] [facility] [id number], [place] [address] Jul, Bipolar I disorder, most recent episode (or current) mixed, unspecified 296.60 and Anxiety state, unspecified 300.00 [facility] Outpatient [address] [address] Jul, Major depressive disorder, recurrent episode, moderate 296.32 and Posttraumatic stress disorder 309.[id number] [place] [address] [id number] Jul, Lumbago 724.2 ; Personal history of tobacco use, presenting hazards to health V15.82 ; Memory loss 780.93 and Obstructive sleep apnea (adult) (pediatric) 327.[id number] [place] [address] [id number] Jul, [address] [id number], [place] [id number] Jul, [address] [id number] [place] [address] [id number] June, [address] [id number], [place] [id number] June, [id number] [place] [address] [id number] June, Cough 786.2 [facility] Psych [address] [id number], [place] [address] June, Anxiety state, unspecified 300.00 [facility] Outpatient [address] [address] May, Major depressive disorder, recurrent episode, moderate 296.32 and Posttraumatic stress disorder 309.[address] [id number], [place] [id number] May, Lumbago 724.2 and Other dyspnea and respiratory abnormalities 786.09 [facility] Dental [address] [place] [address] [id number], [place] [id number] May, Unspecified dental caries 521.00 [facility] Outpatient [address] [address] Mar, Major depressive disorder, recurrent episode, moderate 296.32 and Posttraumatic stress disorder 309.81 [facility] Dental [address] [place] [address], [place] [id number] Mar, Unspecified dental caries 521.00 and Other specified periodontal diseases 523.[address] [id number] Mar, Backache (Unspecified) 724.5 and Wheezing 786.07 [facility] Outpatient [address] [address] Mar, Major depressive disorder, recurrent episode, moderate 296.32 and Posttraumatic stress disorder 309.81 [facility] Outpatient [address] [address] Feb, Major depressive disorder, recurrent episode, moderate 296.32 and Posttraumatic stress disorder 309.81 [facility] [address] [place] [phone] Feb, Major depressive disorder, recurrent episode, moderate 296.32 and 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 300.02 Outpatient Adult [address] [place] [address] Feb, Major depressive disorder, recurrent episode, moderate 296.32 and Posttraumatic stress disorder 309.[address] [address] Feb, Major depressive disorder, recurrent episode, moderate 296.32 and Posttraumatic stress disorder 309.81 [facility] Dental [address] [place] [address], [place] [id number] Feb, Dental examination V72.2 and Periodontosis 523.5 [id number] [id number] Feb, Lumbago 724.2 ; Esophageal reflux 530.81 ; Unspecified urinary incontinence 788.30 ; Constipation (Unspecified) 564.00 ; Other dyspnea and respiratory abnormalities 786.09 and Hypothyroidism (unspecified) 244.9 Outpatient Adult [address] [place] [address] Feb, Outpatient Adult [address] [place] [address] Feb, Major depressive disorder, recurrent episode, moderate 296.32 and Posttraumatic stress disorder 309.81 [facility] [address] [place] [address] Feb, Major depressive disorder, recurrent episode, moderate 296.32 and Posttraumatic stress disorder 309.81 [facility] [address] [place], [place] [id number] Feb, IMMUNIZATIONS No Known Immunizations SOCIAL HISTORY Never Assessed REASON FOR VISIT Med ck, follow-up for generalized anxiety disorder PLAN OF CARE Activity Details Follow Up 09/22, she can pick a time, not MAT Reason: VITAL SIGNS Height 61 in 2018-06-17 Weight 184 lbs 2018-06-17 Temperature 97.8 degrees Fahrenheit 2018-06-17 BMI 34.76 kg/m2 2018-06-17 Blood pressure systolic 129 mm Hg 2018-06-17 Blood pressure diastolic 62 mm Hg 2018-06-17 MEDICATIONS Medication Instructions Dosage Frequency Start Date End Date Duration Status Spiriva HandiHaler 18 MCG Inhalation Once a day 1 capsule 24h Active Norvasc 5 MG Orally Once a day 1 tablet 24h 30 days Not-Taking oxyCODONE-Acetaminophen 7.5-325 MG Orally every 6 hrs 1 tablet as needed 6h Not-Taking Albuterol Sulfate (2.5 MG/3ML) 0.083% Inhalation Three times a day 3 ml 8h Feb, Active Promethazine HCl Active Coreg 6.25 MG Orally Twice a day 1 tablet 12h Not-Taking Metoprolol Succinate ER 100 MG Orally Once a day 1 tablet 24h Active Amiodarone HCl 200 MG Orally Once a day 1 tablet 24h Not-Taking Acyclovir 400 MG Orally Twice a day 1 tablet 12h Active Imdur Not-Taking Polyethylene Glycol - Not-Taking Breo Ellipta 200-25 MCG/INH Inhalation Once a day 1 puff 24h Active Levaquin 500 MG Orally Once a day 1 tablet 24h Not-Taking Levothyroxine Sodium 25 MCG TAKE ONE TABLET BY MOUTH EVERY MORNING FOR EMPTY STOMACH Active Valsartan 40 MG Orally Twice a day 1 tablet 12h Not-Taking Daliresp 500 MCG Orally Once a day 1 tablet 24h Not-Taking Voltaren 1 % Active Xanax 0.5 MG Orally Three times a day(don't fill until 10/31/17) 1 tablet 90 days Active Docusate Sodium 100 MG Orally bid 1 capsule as needed 12h Active Fish Oil 1000 MG as directed Not-Taking Fluticasone Propionate (Inhal) 50 MCG/BLIST Inhalation Twice a day 1 puff 12h Active Albuterol Not-Taking Metformin 1 tab Active Atorvastatin Calcium 40 MG Orally Once a day 1 tablet 24h Active Advair HFA 115-21 MCG/ACT Inhalation Twice a day 2 puffs 12h Active Omeprazole 20 MG Orally Once a day 1 tablet 24h 30 days Active Ranitidine 1 tab Active Albuterol Sulfate HFA 108 (90 Base) MCG/ACT Inhalation every 4 hrs 2 puffs as needed 4h Active Eliquis 5 MG Active Promethazine-Codeine 6.25-10 MG/5ML Orally every 6 hrs 5 ml as needed 6h Active Blood Glucose Monitor System Kit w/ Device as directed twice daily Active Aspir-81 81 MG Orally Once a day 1 tablet 24h Active Fish Oil [place]-3 1000 MG Orally Once a day 1 capsule 24h Active Triamcinolone Acetonide 0.5 % Externally Twice a day 1 application to affected area 12h Active 28-0.8 MG Active hydrALAZINE HCl 50 MG Orally Three times a day 1 tablet with food 8h Active Aldactone 25 MG Orally Once a day 1 tablet with food 24h Active Carvedilol 25 MG Orally Twice a day 1 tablet with food 12h Sep, Not-Taking Torsemide 10 MG Orally Once a day 1 tablet 24h Active Atrovent HFA 17 MCG/ACT Inhalation Four times a day 2 puffs 6h Active Nicorette 2 MG Mouth/Throat 24 time(s) a day 1 piece as needed Mar, Not-Taking Benzonatate 200 MG Orally Three times a day 1 capsule as needed 8h Sep, Not-Taking Vitamin D 1000 UNIT Orally Once a day 1 tablet 24h 30 day(s) Active Prednisone 1 tab Active Lexapro 10 MG Orally Once a day in AM 1 tablet Apr, 90 days Active Lisinopril 2.5 MG Orally Once a day 1 tablet 24h Not-Taking Ondansetron 4 MG Orally tid 1 tablet on the tongue and allow to dissolve as needed 8h Active Apixaban 5 mg Orally bid 1 Tablet 12h Not-Taking Potassium Chloride 10 MEQ Orally Once a day 2 tablet 24h Apr, Not-Taking Cholecalciferol 1000 UNIT Orally Once a day 1 capsule 24h Not-Taking Acetaminophen 500 MG Orally every 6 hrs 1 capsule as needed 6h Active Doxycycline Hyclate 100 MG Orally bid 1 tablet 12h Not-Taking Entresto 24-26 MG Orally Twice a day 1 tablet 12h Active Spironolactone 25 MG Orally Twice a day 1 tablet 12h Active Nitroglycerin 0.4 MG Sublingual every 8 hrs 1 tablet under the tongue 8h Active Lasix 80 MG Orally Once a day 1 tablet 24h Active Senna 8.6 MG Orally Once a day 2 tablets at bedtime as needed 24h Active Nicotrol 10 MG Inhalation qid 1 puff as needed 6h Not-Taking Percocet 10-325 MG Orally tid prn pain 1 tablet as needed Active Lovastatin 40 mg Orally Once a day 1 tablet with a meal 24h Active RESULTS No Results PROCEDURES No [...] 10/2014 Surgical History trach 09/2014 Hospitalization History [facility] 09/2014
--- OUTSIDE RECORDS SUMMARY | 2018-07-07 23:49 | XMS REPORT ---
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 Name Role Phone Jimbo Christianson Unavailable PROBLEMS Type Condition ICD9-CM Code QFU96-YG Code Onset Dates Condition Status SNOMED Code Problem Chronic apical periodontitis K04.5 Active 9832103 Problem Gingivitis K05.10 Active 64206099 Problem 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 F41.1 Active 74685972 Problem Bipolar disorder, current episode mixed, unspecified F31.60 Active 82414056 ALLERGIES Substance Reaction Event Type Date Status morphine Unknown Drug Allergy Sep, Active Iodine Unknown Drug Allergy Sep, Active Adhesive Tape Rash Non Drug Allergy Sep, Active ENCOUNTERS Encounter Location Date Diagnosis [facility] [address] [place] [id number] [place] [phone] Dec, [facility] [address] [place] [address] Sep, 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 F41.1 [facility] [address] [place] [address] June, 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 F41.1 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 [address] [place] [address] June, [facility] [address] [place] [id number] [place] [phone] Mar, 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 F41.1 [facility] [address] [place] [id number] [place] [address] Mar, [facility] [address] [place] [address] Dec, 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 F41.1 Optometry [address] [place] [id number] Oct, Dental [address] [id number] Oct, Encounter for dental examination Z01.20 ; Dental caries extending into dentin K02.62 ; Chronic apical periodontitis K04.5 ; Periodontosis K05.4 and Gingivitis K05.10 Outpatient Adult [address] [place] [address] Oct, [facility] [address] [place] [id number] [place] [address] Sep, 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 F41.1 Outpatient Adult [address] [place] [address] May, [facility] [address] [place] [address] May, Bipolar disorder, current episode mixed, unspecified F31.60 [facility] [address] [place] [id number] [place] [address] Feb, [facility] [address] [place] [address] Jan, Bipolar disorder, current episode mixed, unspecified F31.60 Outpatient Adult [address] [place] [address] Jan, Bipolar disorder, current episode mixed, unspecified F31.60 Outpatient Adult [address] [place] [address] Dec, Bipolar disorder, current episode mixed, unspecified F31.60 Outpatient Adult [address] [place] [address] Nov, Bipolar disorder, current episode mixed, unspecified F31.60 [facility] [address] [place] [id number] Nov, [facility] [address] [place] [id number] [place] [address] Oct, Bipolar disorder, current episode mixed, unspecified F31.60 Outpatient Adult [address] [place] [address] Oct, Bipolar disorder, current episode mixed, unspecified F31.60 Outpatient Adult [address] [place] [address] Sep, Bipolar disorder, current episode mixed, unspecified F31.60 [facility] [address] [place] [id number] [place] [address] Apr, Bipolar disorder, current episode mixed, unspecified F31.60 [facility] [address] [place] [id number] [place] [address] Apr, [facility] [address] [place] [address] Apr, [facility] [address] [place] [id number] [place] [address] Apr, Bipolar disorder, current episode mixed, unspecified F31.60 and Anxiety F41.9 Outpatient Adult [address] [place] [address] Apr, Bipolar disorder, current episode mixed, unspecified F31.60 and Post-traumatic stress disorder, chronic F43.12 Outpatient Adult [address] [place] [address] Feb, Bipolar disorder, current episode mixed, unspecified F31.60 and Post-traumatic stress disorder, chronic F43.12 Outpatient Adult [address] [place] [address] Sep, Bipolar affective, mixed 296.60 and Posttraumatic stress disorder 309.81 [facility] [address] [place] [id number] [place] [address] Sep, Bipolar affective, mixed 296.60 and Anxiety disorder 300.00 [facility] [address] [place] [id number] [place] [address] Jul, Bipolar affective, mixed 296.60 and Anxiety disorder 300.00 Outpatient Adult [address] [place] [address] June, Posttraumatic stress disorder 309.81 and Bipolar affective, mixed 296.60 [facility] [address] [place] [id number] [place] [address] June, Outpatient Adult [address] [place] [address] June, Bipolar affective, mixed 296.60 and Posttraumatic stress disorder 309.81 N Outpatient [address] [place] [address] Jan, Bipolar affective, mixed 296.60 and Posttraumatic stress disorder 309.81 [facility] [address] [place] [id number] [place] [address] Jan, Bipolar affective, mixed 296.60 and Posttraumatic stress disorder 309.81 [facility] Outpatient [address] [address] Dec, Bipolar affective, mixed 296.60 and Posttraumatic stress disorder 309.81 [facility] Outpatient [address] [address] Nov, Bipolar affective, mixed 296.60 and Posttraumatic stress disorder 309.81 [address] [id number] Nov, Cardiomyopathy 425.4 ; Bipolar affective, mixed 296.60 ; COPD (chronic obstructive pulmonary disease) 496 and Chronic back pain greater than 3 months duration 724.5 [place] [id number] [place] [address] [phone] Oct, [facility] Outpatient [address] [address] Oct, Bipolar affective, mixed 296.60 and Posttraumatic stress disorder 309.81 [facility] [address] [place] [id number] [place] [address] Sep, Bipolar affective, mixed 296.60 and Posttraumatic stress disorder 309.81 Outpatient Adult [address] [place] [address] Sep, Bipolar affective, mixed 296.60 and Posttraumatic stress disorder 309.81 [facility] Outpatient [address] [address] June, Bipolar affective, mixed 296.60 and Posttraumatic stress disorder 309.81 [facility] Psych [address] [place] [address] Apr, Bipolar affective, mixed 296.60 ; Posttraumatic stress disorder 309.81 and Insomnia, unspecified 780.52 Outpatient Adult [address] [place] [address] Dec, Bipolar affective, mixed 296.60 and Posttraumatic stress disorder 309.81 [facility] [address] [place] [id number] [place] [address] Nov, Bipolar affective, mixed 296.60 ; Posttraumatic stress disorder 309.81 ; Hypertension 401.9 ; Hyperlipidemia (Unspecified) 272.4 ; Coronary atherosclerosis due to calcified coronary lesion 414.4 ; Asthma, unspecified, unspecified status 493.90 ; Chronic pain syndrome 338.4 ; Hypothyroidism (unspecified) 244.9 ; Insomnia, unspecified 780.52 and tobacco use disorder 305.1 [facility] [address] [place] [phone] Nov, [facility] [address] [place] [id number] Nov, Presbyopia 367.4 [facility] [address] [place] [address] [id number] [address] Nov, [facility] [address] [place] [phone] Nov, Outpatient Adult [address] [place] [address] Oct, Bipolar affective, mixed 296.60 and Posttraumatic stress disorder 309.81 [facility] [address] [place] [address] Sep, Bipolar affective, mixed 296.60 ; Posttraumatic stress disorder 309.81 ; Hypertension 401.9 ; Hyperlipidemia (Unspecified) 272.4 ; Coronary atherosclerosis due to calcified coronary lesion 414.4 ; Asthma, unspecified, unspecified status 493.90 ; Chronic pain syndrome 338.4 ; Hypothyroidism (unspecified) 244.9 ; Insomnia, unspecified 780.52 and tobacco use disorder 305.1 N Psych [facility] [place] [address] May, Bipolar affective, mixed 296.60 ; Posttraumatic stress disorder 309.81 ; Hypertension 401.9 ; Hyperlipidemia (Unspecified) 272.4 ; Coronary atherosclerosis due to calcified coronary lesion 414.4 ; Asthma, unspecified, unspecified status 493.90 ; Chronic pain syndrome 338.4 ; Hypothyroidism (unspecified) 244.9 ; Insomnia, unspecified 780.52 ; tobacco use disorder 305.1 and Bipolar I disorder, most re cent episode (or current) mixed, unspecified 296.60 [facility] Outpatient [facility] [place] [address] May, Bipolar affective, mixed 296.60 and Posttraumatic stress disorder 309.81 [facility] Outpatient [address] [address] Apr, Bipolar I disorder, most recent episode (or current) mixed, unspecified 296.60 [facility] [address] [place] [id number] Mar, [facility] Psych [id number] [place] [address] Feb, Bipolar affective, mixed 296.60 ; Posttraumatic stress disorder 309.81 ; Hypertension 401.9 ; Hyperlipidemia (Unspecified) 272.4 ; Coronary atherosclerosis due to calcified coronary lesion 414.4 ; Asthma, unspecified, unspecified status 493.90 ; Chronic pain syndrome 338.4 ; Hypothyroidism (unspecified) 244.9 ; Insomnia, unspecified 780.52 and tobacco use disorder 305.[id number] [place] [address] [id number] Feb, Pneumonia 486 [facility] Outpatient [address] [address] Sep, Bipolar I disorder, most recent episode (or current) mixed, unspecified 296.[id number] [place] [address] [id number] Sep, Hyperlipidemia (Unspecified) 272.4 and Congestive heart failure 428.0 [address] [place] [address] [id number] Aug, [id number] [place] [address] Aug, Bipolar affective, mixed 296.60 ; Posttraumatic stress disorder 309.81 ; Hypertension 401.9 ; Hyperlipidemia (Unspecified) 272.4 ; Coronary atherosclerosis due to calcified coronary lesion 414.4 ; Asthma, unspecified, unspecified status 493.90 ; Chronic pain syndrome 338.4 ; Hypothyroidism (unspecified) 244.9 ; Insomnia, unspecified 780.52 and tobacco use disorder 305.[id number] [place] [address] [id number] Aug, [facility] Outpatient [address] [address] Aug, Major depressive disorder, recurrent episode, moderate 296.[address] [id number] [place] [address] [id number] Aug, Chronic pain syndrome 338.4 ; Asthma, unspecified, unspecified status 493.90 ; Hypothyroidism (unspecified) 244.9 ; Renal failure 586 ; Hyperlipidemia (Unspecified) 272.4 and Screening for HIV (human immunodeficiency virus) V73.89 [facility] [address], [place] [address] Jul, Major depressive disorder, recurrent episode, moderate 296.32 Outpatient Adult [address] [place] [address] Jul, Major depressive disorder, recurrent episode, moderate 296.32 Outpatient Adult [address] [place] [address] Jul, Major depressive disorder, recurrent episode, moderate 296.32 [facility] [address], [place] [address] Jul, Bipolar affective disorder, currently depressed, moderate 296.52 [facility] Psych [place] [id number] [place] [address] June, Depressive disorder, not elsewhere classified 311 [...] moderate 296.32 and Posttraumatic stress disorder 309.81 [place] [address] [place] [address] [id number] June, [facility] Outpatient [address] [address] June, Major depressive disorder, recurrent episode, moderate 296.32 [place] [id number] [place] [address] [id number] June, Chronic pain syndrome 338.4 [facility] [address] [place] [address] [id number] May, [facility] Outpatient [address] [address] May, Major depressive disorder, recurrent episode, moderate 296.32 and Posttraumatic stress disorder 309.81 [place] [id number] [place] [address] [id number] May, HIV (human immunodeficiency virus infection) V08 ; Hyperlipidemia (Unspecified) 272.4 and Chronic pain syndrome 338.4 [place] [address] [place] [address] [id number] Apr, Chronic pain syndrome 338.4 ; Hypertension 401.9 ; Human immunodeficiency virus [HIV] 042 and Asthma, unspecified, unspecified status 493.90 [facility] Outpatient [address] [address] Apr, Major depressive disorder, recurrent episode, moderate 296.32 [place] [address] [place] [address] [id number] Apr, [address] [id number] Mar, HIV (human immunodeficiency virus infection) V08 [place] [id number] [place] [address] [id number] Mar, [facility] Psych [address] [address] Mar, Anxiety state, unspecified 300.00 [place] [id number] [place] [address] [id number] Mar, Lumbago 724.2 ; Other dyspnea and respiratory abnormalities 786.09 ; Hypothyroidism (unspecified) 244.9 ; Esophageal reflux 530.81 ; Hypertension 401.9 ; Hyperlipidemia (Unspecified) 272.4 and Screening for unspecified condition V82.9 [place] [address] [place] [address] [id number] Feb, [place] [id number] [place] [address] [id number] Feb, Lumbago 724.[address] [place] [address] [id number] Feb, [address] [place] [address] [id number] Feb, [address] [place] [address] [id number] Jan, Lumbago 724.2 and Other dyspnea and respiratory abnormalities 786.09 [facility] Outpatient [address] [address] Dec, Major depressive disorder, recurrent episode, moderate 296.32 and Posttraumatic stress disorder 309.81 [address] [id number] Dec, Lumbago 724.2 ; Esophageal reflux 530.81 and Hypothyroidism (unspecified) 244.9 [facility] Psych [address] [id number], [place] [address] Dec, Anxiety state, unspecified 300.00 [facility] Psych [address] [id number], [place] [address] Nov, Anxiety state, unspecified 300.[id number] [place] [address] [id number] Nov, Lumbago 724.2 [facility] Outpatient [address] [address] Oct, Major depressive disorder, recurrent episode, moderate 296.32 and Posttraumatic stress disorder 309.[id number] [place] [address] [id number] Oct, [id number] [place] [address] [id number] Sep, [address] [id number] [place] [address] [id number] Sep, Lumbago 724.2 ; Unspecified urinary incontinence 788.30 and Obstructive sleep apnea (adult) (pediatric) 327.23 [facility] Outpatient [address] [address] Sep, Major depressive disorder, recurrent episode, moderate 296.32 and Posttraumatic stress disorder 309.[address] [id number] [id number] Sep, [address] [id number] [id number] Sep, [address] [id number], [place] [id number] Aug, [address] [id number] [place] [address] Jul, Bipolar I disorder, most recent episode (or current) mixed, unspecified 296.60 and Anxiety state, unspecified 300.00 [facility] Outpatient [address] [address] Jul, Major depressive disorder, recurrent episode, moderate 296.32 and Posttraumatic stress disorder 309.[address] [id number], [place] [id number] Jul, Lumbago 724.2 ; Personal history of tobacco use, presenting hazards to health V15.82 ; Memory loss 780.93 and Obstructive sleep apnea (adult) (pediatric) 327.[id number] [place] [address] [id number] Jul, [address] [id number] [place] [address] [id number] Jul, [id number] [id number] June, [id number] [id number] June, [id number] [id number] June, Cough 786.2 [facility] Psych [address] [address] June, Anxiety state, unspecified 300.00 [facility] Outpatient [address] [address] May, Major depressive disorder, recurrent episode, moderate 296.32 and Posttraumatic stress disorder 309.81 [place] [id number] [place] [address] [id number] May, Lumbago 724.2 and Other dyspnea and respiratory abnormalities 786.09 [facility] Dental [address] [place] [address] [id number] May, Unspecified dental caries 521.00 [facility] Outpatient [address] [address] Mar, Major depressive disorder, recurrent episode, moderate 296.32 and Posttraumatic stress disorder 309.81 [facility] Dental [address] [place] [address] [id number] Mar, Unspecified dental caries 521.00 and Other specified periodontal diseases 523.[address] [id number] Mar, Backache (Unspecified) 724.5 and Wheezing 786.07 [facility] Outpatient [address] [address] Mar, Major depressive disorder, recurrent episode, moderate 296.32 and Posttraumatic stress disorder 309.81 [facility] Outpatient [address] [address] Feb, Major depressive disorder, recurrent episode, moderate 296.32 and Posttraumatic stress disorder 309.81 [facility] [address] [id number], [place] [address] Feb, Major depressive disorder, recurrent episode, moderate 296.32 and 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 300.02 Outpatient Adult [address] [place] [address] Feb, Major depressive disorder, recurrent episode, moderate 296.32 and Posttraumatic stress disorder 309.81 [facility] Outpatient [address] [place] [address] Feb, Major depressive disorder, recurrent episode, moderate 296.32 and Posttraumatic stress disorder 309.81 [facility] Dental [address] [facility] [id number] [id number] Feb, Dental examination V72.2 and Periodontosis 523.5 [facility] [address] [facility] [id number] [id number] Feb, Lumbago 724.2 ; Esophageal reflux 530.81 ; Unspecified urinary incontinence 788.30 ; Constipation (Unspecified) 564.00 ; Other dyspnea and respiratory abnormalities 786.09 and Hypothyroidism (unspecified) 244.9 Outpatient Adult [address] [place] [address] Feb, Outpatient Adult [address] [place] [address] Feb, Major depressive disorder, recurrent episode, moderate 296.32 and Posttraumatic stress disorder 309.81 [facility] [address] [place] [phone] Feb, Major depressive disorder, recurrent episode, moderate 296.32 and Posttraumatic stress disorder 309.81 [facility] [address] [place] [address] [id number] Feb, IMMUNIZATIONS No Known Immunizations SOCIAL HISTORY [...] 10/2014 Surgical History trach 09/2014 Hospitalization History [place], [place] 09/2014
--- OUTSIDE RECORDS SUMMARY | 2018-07-07 23:49 | XMS REPORT ---
Author Author Orly Chanel Organization [facility] Address [address] [place] [address] Care Team Providers Care Cycle Counter Name Role Phone Orly Chanel Unavailable PROBLEMS Type Condition ICD9-CM Code [id number] Code Onset Dates Condition Status SNOMED Code Problem Chronic apical periodontitis K04.5 Active 9565767 Problem Gingivitis K05.10 Active 94484472 Problem 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 F41.1 Active 36974072 Problem Bipolar disorder, current episode mixed, unspecified F31.60 Active 16067724 ALLERGIES No Information ENCOUNTERS Encounter Location Date Diagnosis [facility] [address] [place] [phone] Sep, [facility] [address] [place] [phone] June, 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 F41.1 [facility] [address] [place] [address] June, [facility] [address] [place] [phone] Mar, 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 F41.1 [facility] [address] [place] [phone] Mar, [facility] [address] [place] [phone] Dec, 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 F41.[address] [place] [phone] Oct, Dental [address] [id number] Oct, Encounter for dental examination Z01.20 ; Dental caries extending into dentin K02.62 ; Chronic apical periodontitis K04.5 ; Periodontosis K05.4 and Gingivitis K05.10 Outpatient Adult [address] [place] [address] Oct, [facility] [address] [place] [id number] [place] [phone] Sep, 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 F41.1 Outpatient Adult [address] [place] [address] May, [facility] [address] [place] [id number] [place] [address] May, Bipolar disorder, current episode mixed, unspecified F31.60 Psych[facility] Services [address] [place] [id number] [place] [address] Feb, [facility] [address] [place] [phone] Jan, Bipolar disorder, current episode mixed, unspecified F31.60 Outpatient Adult [address] [place] [address] Jan, Bipolar disorder, current episode mixed, unspecified F31.60 Outpatient Adult [address] [place] [address] Dec, Bipolar disorder, current episode mixed, unspecified F31.60 Outpatient Adult [address] [place] [address] Nov, Bipolar disorder, current episode mixed, unspecified F31.60 [facility] [address] [place] [id number] Nov, [facility] [address] [place] [id number] [place] [address] Oct, Bipolar disorder, current episode mixed, unspecified F31.60 Outpatient Adult [address] [place] [address] Oct, Bipolar disorder, current episode mixed, unspecified F31.60 Outpatient Adult [address] [place] [address] Sep, Bipolar disorder, current episode mixed, unspecified F31.60 [facility] [address] [place] [id number] [place] [address] Apr, Bipolar disorder, current episode mixed, unspecified F31.60 [facility] [address] [place] [id number] [place] [address] Apr, [facility]ake Services [address] [place] [address] Apr, [facility] [address] [place] [id number] [place] [address] Apr, Bipolar disorder, current episode mixed, unspecified F31.60 and Anxiety F41.9 Outpatient Adult [address] [place] [address] Apr, Bipolar disorder, current episode mixed, unspecified F31.60 and Post-traumatic stress disorder, chronic F43.12 Outpatient Adult [address] [place] [address] Feb, Bipolar disorder, current episode mixed, unspecified F31.60 and Post-traumatic stress disorder, chronic F43.12 Outpatient Adult [address] [place] [address] Sep, Bipolar affective, mixed 296.60 and Posttraumatic stress disorder 309.81 [facility] [address] [place] [id number] [place] [address] Sep, Bipolar affective, mixed 296.60 and Anxiety disorder 300.00 Psych[facility] Services [address] [place] [id number] [place] [address] Jul, Bipolar affective, mixed 296.60 and Anxiety disorder 300.00 Outpatient Adult [address] [place] [address] June, Posttraumatic stress disorder 309.81 and Bipolar affective, mixed 296.60 [facility] [address] [place] [id number] [place] [address] June, Outpatient Adult [address] [place] [address] June, Bipolar affective, mixed 296.60 and Posttraumatic stress disorder 309.81 N Outpatient [address] [place] [address] Jan, Bipolar affective, mixed 296.60 and Posttraumatic stress disorder 309.81 [facility] [address] [address] Jan, Bipolar affective, mixed 296.60 and Posttraumatic stress disorder 309.81 [facility] [address] [place] [address] Dec, Bipolar affective, mixed 296.60 and Posttraumatic stress disorder 309.81 [facility] [address] [address] Nov, Bipolar affective, mixed 296.60 and Posttraumatic stress disorder 309.[address] [place] [id number] Nov, Cardiomyopathy 425.4 ; Bipolar affective, mixed 296.60 ; COPD (chronic obstructive pulmonary disease) 496 and Chronic back pain greater than 3 months duration 724.5 [place] [id number] [place] [phone] Oct, [facility] Outpatient [address] [address] Oct, Bipolar affective, mixed 296.60 and Posttraumatic stress disorder 309.81 Psych[facility] Services [address] [place] [address] Sep, Bipolar affective, mixed 296.60 and Posttraumatic stress disorder 309.81 Outpatient Adult [address] [place] [address] Sep, Bipolar affective, mixed 296.60 and Posttraumatic stress disorder 309.81 [facility] Outpatient [address] [address] June, Bipolar affective, mixed 296.60 and Posttraumatic stress disorder 309.81 [facility] Psych [place] [id number] [place] [address] Apr, Bipolar affective, mixed 296.60 ; Posttraumatic stress disorder 309.81 and Insomnia, unspecified 780.52 Outpatient Adult [address] [place] [address] Dec, Bipolar affective, mixed 296.60 and Posttraumatic stress disorder 309.81 Psych[facility] Services [address] [place] [id number] [place] [address] Nov, Bipolar affective, mixed 296.60 ; Posttraumatic stress disorder 309.81 ; Hypertension 401.9 ; Hyperlipidemia (Unspecified) 272.4 ; Coronary atherosclerosis due to calcified coronary lesion 414.4 ; Asthma, unspecified, unspecified status 493.90 ; Chronic pain syndrome 338.4 ; Hypothyroidism (unspecified) 244.9 ; Insomnia, unspecified 780.52 and tobacco use disorder 305.1 [facility] [address] [place] [phone] Nov, [facility] [address] [place] [address] [id number] Nov, Presbyopia 367.4 Psych[facility] Services [address] [place] [address] [place] [address] Nov, [facility] [address] [place] [phone] Nov, Outpatient Adult [address] [place] [address] Oct, Bipolar affective, mixed 296.60 and Posttraumatic stress disorder 309.81 Psych[facility] Services [address] [place] [address] [place] [address] Sep, Bipolar affective, mixed 296.60 ; Posttraumatic stress disorder 309.81 ; Hypertension 401.9 ; Hyperlipidemia (Unspecified) 272.4 ; Coronary atherosclerosis due to calcified coronary lesion 414.4 ; Asthma, unspecified, unspecified status 493.90 ; Chronic pain syndrome 338.4 ; Hypothyroidism (unspecified) 244.9 ; Insomnia, unspecified 780.52 and tobacco use disorder 305.1 [facility] Psych [address] [id number] [address] May, Bipolar affective, mixed 296.60 ; Posttraumatic stress disorder 309.81 ; Hypertension 401.9 ; Hyperlipidemia (Unspecified) 272.4 ; Coronary atherosclerosis due to calcified coronary lesion 414.4 ; Asthma, unspecified, unspecified status 493.90 ; Chronic pain syndrome 338.4 ; Hypothyroidism (unspecified) 244.9 ; Insomnia, unspecified 780.52 ; tobacco use disorder 305.1 and Bipolar I disorder, most re cent episode (or current) mixed, unspecified 296.60 [facility] Outpatient [address] [address] May, Bipolar affective, mixed 296.60 and Posttraumatic stress disorder 309.81 [facility] Outpatient [address] [address] Apr, Bipolar I disorder, most recent episode (or current) mixed, unspecified 296.60 [facility] [address] [place] [address] [phone] Mar, [facility] Psych [address] [id number] [address] Feb, Bipolar affective, mixed 296.60 ; Posttraumatic stress disorder 309.81 ; Hypertension 401.9 ; Hyperlipidemia (Unspecified) 272.4 ; Coronary atherosclerosis due to calcified coronary lesion 414.4 ; Asthma, unspecified, unspecified status 493.90 ; Chronic pain syndrome 338.4 ; Hypothyroidism (unspecified) 244.9 ; Insomnia, unspecified 780.52 and tobacco use disorder 305.[address] [place] [address] [id number] Feb, Pneumonia 486 [facility] Outpatient [address] [address] Sep, Bipolar I disorder, most recent episode (or current) mixed, unspecified 296.[address] [id number] Sep, Hyperlipidemia (Unspecified) 272.4 and Congestive heart failure 428.[address] [id number] Aug, [facility] Psych [place] [id number] [place] [address] Aug, Bipolar affective, mixed 296.60 ; Posttraumatic stress disorder 309.81 ; Hypertension 401.9 ; Hyperlipidemia (Unspecified) 272.4 ; Coronary atherosclerosis due to calcified coronary lesion 414.4 ; Asthma, unspecified, unspecified status 493.90 ; Chronic pain syndrome 338.4 ; Hypothyroidism (unspecified) 244.9 ; Insomnia, unspecified 780.52 and tobacco use disorder 305.1 [address] [place] [address] [id number] Aug, [facility] Outpatient [address] [address] Aug, Major depressive disorder, recurrent episode, moderate 296.32 [address] [place] [address] [id number] Aug, Chronic pain syndrome 338.4 ; Asthma, unspecified, unspecified status 493.90 ; Hypothyroidism (unspecified) 244.9 ; Renal failure 586 ; Hyperlipidemia (Unspecified) 272.4 and Screening for HIV (human immunodeficiency virus) V73.89 Psychiatric Services [address] [place] [id number] [place] [address] Jul, Major depressive disorder, recurrent episode, moderate 296.32 Outpatient Adult [address] [place] [address] Jul, Major depressive disorder, recurrent episode, moderate 296.32 Outpatient Adult [address] [place] [address] Jul, Major depressive disorder, recurrent episode, moderate 296.32 [facility] [address] [place] [id number] [place] [address] Jul, Bipolar affective disorder, currently depressed, moderate 296.52 [facility] Psych [place] [id number] [place] [address] June, Depressive disorder, not elsewhere classified 311 [...] moderate 296.32 and Posttraumatic stress disorder 309.[address] [id number] June, [facility] Outpatient [address] [address] June, Major depressive disorder, recurrent episode, moderate 296.[address] [id number] June, Chronic pain syndrome 338.4 [facility] Services [address] [place] [address] [phone] May, [facility] Outpatient [address] [address] May, Major depressive disorder, recurrent episode, moderate 296.32 and Posttraumatic stress disorder 309.[address] [id number] May, HIV (human immunodeficiency virus infection) V08 ; Hyperlipidemia (Unspecified) 272.4 and Chronic pain syndrome 338.[address] [id number] Apr, Chronic pain syndrome 338.4 ; Hypertension 401.9 ; Human immunodeficiency virus [HIV] 042 and Asthma, unspecified, unspecified status 493.90 [facility] Outpatient [address] [address] Apr, Major depressive disorder, recurrent episode, moderate 296.32 [address] [place] [id number] Apr, [address] [id number] Mar, HIV (human immunodeficiency virus infection) V08 [place] [id number] [place] [address] [phone] Mar, [facility] Psych [address] [address] Mar, Anxiety state, unspecified 300.[address] [id number] Mar, Lumbago 724.2 ; Other dyspnea and respiratory abnormalities 786.09 ; Hypothyroidism (unspecified) 244.9 ; Esophageal reflux 530.81 ; Hypertension 401.9 ; Hyperlipidemia (Unspecified) 272.4 and Screening for unspecified condition V82.[address] [id number] Feb, [place] [id number] [place] [address] [id number] Feb, Lumbago 724.[address] [id number] Feb, [address] [id number] Feb, [place] [address] [place] [address] [id number] Jan, Lumbago 724.2 and Other dyspnea and respiratory abnormalities 786.09 [facility] Outpatient [address] [address] Dec, Major depressive disorder, recurrent episode, moderate 296.32 and Posttraumatic stress disorder 309.[address] [id number] Dec, Lumbago 724.2 ; Esophageal reflux 530.81 and Hypothyroidism (unspecified) 244.9 [facility] Psych [place] [id number] [place] [address] Dec, Anxiety state, unspecified 300.00 [facility] Psych [address] [place] [address] Nov, Anxiety state, unspecified 300.[address] [id number] [id number] Nov, Lumbago 724.2 [facility] Outpatient [address] [address] Oct, Major depressive disorder, recurrent episode, moderate 296.32 and Posttraumatic stress disorder 309.[id number] [id number] Oct, [address] [id number] [id number] Sep, [address] [id number] [id number] Sep, Lumbago 724.2 ; Unspecified urinary incontinence 788.30 and Obstructive sleep apnea (adult) (pediatric) 327.[address] [address] Sep, Major depressive disorder, recurrent episode, moderate 296.32 and Posttraumatic stress disorder 309.[address] [id number] [id number] Sep, [address] [id number][place] [id number] Sep, [id number] [place] [address] [id number] Aug, [id number] [place] [address] Jul, Bipolar I disorder, most recent episode (or current) mixed, unspecified 296.60 and Anxiety state, unspecified 300.00 [facility] Outpatient [address] [address] Jul, Major depressive disorder, recurrent episode, moderate 296.32 and Posttraumatic stress disorder 309.[address] [id number][place] [id number] Jul, Lumbago 724.2 ; Personal history of tobacco use, presenting hazards to health V15.82 ; Memory loss 780.93 and Obstructive sleep apnea (adult) (pediatric) 327.[address] [id number][place] [id number] Jul, [address] [id number][place] [id number] Jul, [address] [place] [address] [id number] June, [address] [id number] June, [address] [id number] June, Cough 786.2 [facility] Psych [place] [id number] [place] [phone] June, Anxiety state, unspecified 300.00 [facility] Outpatient [address] [address] May, Major depressive disorder, recurrent episode, moderate 296.32 and Posttraumatic stress disorder 309.81 [place] [id number] [place] [address] [id number] May, Lumbago 724.2 and Other dyspnea and respiratory abnormalities 786.09 [facility] Dental [address] [place], [place] [address] [place] [address] [id number] May, Unspecified dental caries 521.00 [facility] Outpatient [address] [address] Mar, Major depressive disorder, recurrent episode, moderate 296.32 and Posttraumatic stress disorder 309.81 [facility] Dental [address] [place] [address] [place] [address] [id number] Mar, Unspecified dental caries 521.00 and Other specified periodontal diseases 523.[address] [place] [address] [id number] Mar, Backache (Unspecified) 724.5 and Wheezing 786.07 [facility] Outpatient [address] [address] Mar, Major depressive disorder, recurrent episode, moderate 296.32 and Posttraumatic stress disorder 309.81 [facility] Outpatient [address] [address] Feb, Major depressive disorder, recurrent episode, moderate 296.32 and Posttraumatic stress disorder 309.81 Psych[facility] Services [address] [address] Feb, Major depressive disorder, recurrent episode, moderate 296.32 and 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 300.02 Outpatient Adult [address] [place] [address] Feb, Major depressive disorder, recurrent episode, moderate 296.32 and Posttraumatic stress disorder 309.81 [facility] [address] [place] [address] Feb, Major depressive disorder, recurrent episode, moderate 296.32 and Posttraumatic stress disorder 309.81 [facility] Dental [address] [facility] [id number] [id number] Feb, Dental examination V72.2 and Periodontosis 523.5 [facility] [address] [facility] [id number] [id number] Feb, Lumbago 724.2 ; Esophageal reflux 530.81 ; Unspecified urinary incontinence 788.30 ; Constipation (Unspecified) 564.00 ; Other dyspnea and respiratory abnormalities 786.09 and Hypothyroidism (unspecified) 244.9 Outpatient Adult [address] [place] [address] Feb, Outpatient Adult [address] [place] [address] Feb, Major depressive disorder, recurrent episode, moderate 296.32 and Posttraumatic stress disorder 309.81 Outpatient Children [address] [place] [address] Feb, Major depressive disorder, recurrent episode, moderate 296.32 and Posttraumatic stress disorder 309.81 [facility] [address] [place] [id number] Feb, IMMUNIZATIONS No Known Immunizations SOCIAL HISTORY [...] 10/2014 Surgical History trach 09/2014 Hospitalization History [place], [place] 09/2014
--- OUTSIDE RECORDS SUMMARY | 2018-07-07 23:49 | XMS REPORT ---
Author Author Benjamin Sierra Organization [employer] Address Unknown Phone Unavailable Care Team Providers Care Office Machine Installer Name Role Phone Benjamin Sierra CP Unavailable Allergies No Known Allergies Problems Problem Type Condition Code Onset Dates Condition Status Assessment Bipolar disorder, current episode mixed, unspecified F31.60 Active Problem Bipolar disorder, current episode mixed, unspecified F31.60 Active Medications Medication Code System Code Instructions Start Date End Date Status Dosage Coreg [facility] [address]-94 25 MG Orally Twice a day 1 tablet Spiriva HandiHaler [facility] [address]-74 18 MCG Inhalation Once a day 1 capsule Advair HFA [facility] [address]-38 115-21 MCG/ACT Inhalation Twice a day 2 puffs Xanax [facility] [address]-03 1 MG Orally tid prn anxiety 1 tablet Xanax [facility] [address]-08 0.5 MG Orally tid prn anxiety 1 tablet Percocet [facility] [address]-76 7.5-325 MG Orally tid prn pain 1 tablet as needed Aspir-[address] [facility] [address]-71 81 MG Orally Once a day 1 tablet Benzonatate [facility] [address]-38 200 MG Orally Three times a day Sep 28, 2013 1 capsule as needed Spironolactone [facility] [address]-80 25 MG Orally Twice a day 1 tablet Potassium Chloride [facility] [address]-18 10 MEQ Orally Once a day April 29, 2011 2 tablet Procedures Procedure Coding System Code Date PSYTX PT&/FAMILY 45 MINUTES CPT-4 03072 Dec 05, 2015 [facility] VISIT MENTAL HEALTH ESTABLISHED PATIENT CPT-4 G0470 Dec 05, 2015 Results No Known Results Summary Purpose [employer] Submission
--- OUTSIDE RECORDS SUMMARY | 2018-07-07 23:50 | XMS REPORT ---
Author Author Jimbo Christianson Organization [facility] Address [address] [place] [address] Care Team Providers Care Hand Straightener Name Role Phone Jimbo Christianson Unavailable PROBLEMS Type Condition ICD9-CM Code QVP21-KK Code Onset Dates Condition Status SNOMED Code Problem Chronic apical periodontitis K04.5 Active 5456054 Problem Gingivitis K05.10 Active 27575006 Problem 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 F41.1 Active 72638490 Problem Bipolar disorder, current episode mixed, unspecified F31.60 Active 83228626 ALLERGIES Substance Reaction Event Type Date Status morphine Unknown Drug Allergy Mar, Active Iodine Unknown Drug Allergy Mar, Active Adhesive Tape Rash Non Drug Allergy Mar, Active ENCOUNTERS Encounter Location Date Diagnosis [facility] [address] [place] [id number] [place] [address] June, [facility] [address] [place] [address] Mar, 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 F41.1 [facility] [address] [place] [id number] [place] [address] Mar, [facility] [address] [place] [address] [place] [address] Dec, 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 F41.1 Optometry [address] [place] [id number] Oct, Dental [id number] [place] [id number] Oct, Encounter for dental examination Z01.20 ; Dental caries extending into dentin K02.62 ; Chronic apical periodontitis K04.5 ; Periodontosis K05.4 and Gingivitis K05.10 Outpatient Adult [address] [place] [address] Oct, [facility] [address] [place] [address] Sep, 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 F41.1 Outpatient Adult [address] [place] [address] May, [facility] [address] [place] [id number] [place] [address] May, Bipolar disorder, current episode mixed, unspecified F31.60 [facility] [address] [place], [place] [id number] [place] [address] Feb, [facility] [address] [place] [address] [place] [address] Jan, Bipolar disorder, current episode mixed, unspecified F31.60 Outpatient Adult [address] [place] [address] Jan, Bipolar disorder, current episode mixed, unspecified F31.60 Outpatient Adult [address] [place] [address] Dec, Bipolar disorder, current episode mixed, unspecified F31.60 Outpatient Adult [address] [place] [address] Nov, Bipolar disorder, current episode mixed, unspecified F31.60 [facility] [address] [place] [phone] Nov, [facility] [address] [place] [address] [place] [address] Oct, Bipolar disorder, current episode mixed, unspecified F31.60 Outpatient Adult [address] [place] [address] Oct, Bipolar disorder, current episode mixed, unspecified F31.60 Outpatient Adult [address] [place] [phone] Sep, Bipolar disorder, current episode mixed, unspecified F31.60 [facility] [address] [place] [id number] [address] Apr, Bipolar disorder, current episode mixed, unspecified F31.60 [facility] [address] [place] [id number] [address] Apr, Intake Services [address] [place] [address] Apr, [facility] [address] [place] [address] Apr, Bipolar disorder, current episode mixed, unspecified F31.60 and Anxiety F41.9 Outpatient Adult [address] [place] [address] Apr, Bipolar disorder, current episode mixed, unspecified F31.60 and Post-traumatic stress disorder, chronic F43.12 Outpatient Adult [address] [place] [address] Feb, Bipolar disorder, current episode mixed, unspecified F31.60 and Post-traumatic stress disorder, chronic F43.12 Outpatient Adult [address] [place] [address] Sep, Bipolar affective, mixed 296.60 and Posttraumatic stress disorder 309.81 [facility] [address] [place] [address] [place] [address] Sep, Bipolar affective, mixed 296.60 and Anxiety disorder 300.00 [facility] [address] [place] [address] [place] [address] Jul, Bipolar affective, mixed 296.60 and Anxiety disorder 300.00 Outpatient Adult [address] [place] [address] June, Posttraumatic stress disorder 309.81 and Bipolar affective, mixed 296.60 [facility] [address] [place] [id number] [place] [address] June, Outpatient Adult [address] [place] [address] June, Bipolar affective, mixed 296.60 and Posttraumatic stress disorder 309.81 [facility] Outpatient [facility] [place] [address] Jan, Bipolar affective, mixed 296.60 and Posttraumatic stress disorder 309.81 N Psych [place] [id number] [place] [address] Jan, Bipolar affective, mixed 296.60 and Posttraumatic stress disorder 309.[address] [address] Dec, Bipolar affective, mixed 296.60 and Posttraumatic stress disorder 309.81 [facility] Outpatient [address] [address] Nov, Bipolar affective, mixed 296.60 and Posttraumatic stress disorder 309.[address] [id number] [id number] Nov, Cardiomyopathy 425.4 ; Bipolar affective, mixed 296.60 ; COPD (chronic obstructive pulmonary disease) 496 and Chronic back pain greater than 3 months duration [address] [id number] [id number] Oct, [facility] Outpatient [address] [address] Oct, Bipolar affective, mixed 296.60 and Posttraumatic stress disorder 309.81 [facility] [address] [place] [id number] [place] [address] Sep, Bipolar affective, mixed 296.60 and Posttraumatic stress disorder 309.81 Outpatient Adult [address] [place] [address] Sep, Bipolar affective, mixed 296.60 and Posttraumatic stress disorder 309.81 [facility] Outpatient [address] [address] June, Bipolar affective, mixed 296.60 and Posttraumatic stress disorder 309.81 [facility] Psych [id number] [address] Apr, Bipolar affective, mixed 296.60 ; Posttraumatic stress disorder 309.81 and Insomnia, unspecified 780.52 Outpatient Adult [address] [place] [address] Dec, Bipolar affective, mixed 296.60 and Posttraumatic stress disorder 309.81 [facility] [address] [place] [address] [place] [address] Nov, Bipolar affective, mixed 296.60 ; Posttraumatic stress disorder 309.81 ; Hypertension 401.9 ; Hyperlipidemia (Unspecified) 272.4 ; Coronary atherosclerosis due to calcified coronary lesion 414.4 ; Asthma, unspecified, unspecified status 493.90 ; Chronic pain syndrome 338.4 ; Hypothyroidism (unspecified) 244.9 ; Insomnia, unspecified 780.52 and tobacco use disorder 305.1 [facility] [address] [place] [id number] Nov, [facility] [address] [place] [id number] Nov, Presbyopia 367.[address] [facility] [address] [place], [place] [address] [address] Nov, [facility] [address] [place] [id number] Nov, Outpatient Adult [address] [place] [address] Oct, Bipolar affective, mixed 296.60 and Posttraumatic stress disorder 309.81 [facility] [address] [place] [address] [place] [address] Sep, Bipolar affective, mixed 296.60 ; Posttraumatic stress disorder 309.81 ; Hypertension 401.9 ; Hyperlipidemia (Unspecified) 272.4 ; Coronary atherosclerosis due to calcified coronary lesion 414.4 ; Asthma, unspecified, unspecified status 493.90 ; Chronic pain syndrome 338.4 ; Hypothyroidism (unspecified) 244.9 ; Insomnia, unspecified 780.52 and tobacco use disorder 305.1 [facility] Psych [address] [address] May, Bipolar affective, mixed 296.60 ; Posttraumatic stress disorder 309.81 ; Hypertension 401.9 ; Hyperlipidemia (Unspecified) 272.4 ; Coronary atherosclerosis due to calcified coronary lesion 414.4 ; Asthma, unspecified, unspecified status 493.90 ; Chronic pain syndrome 338.4 ; Hypothyroidism (unspecified) 244.9 ; Insomnia, unspecified 780.52 ; tobacco use disorder 305.1 and Bipolar I disorder, most re cent episode (or current) mixed, unspecified 296.60 [facility] Outpatient [address] [address] May, Bipolar affective, mixed 296.60 and Posttraumatic stress disorder 309.81 [facility] Outpatient [address] [address] Apr, Bipolar I disorder, most recent episode (or current) mixed, unspecified 296.60 [facility] [address] [place] [address] [phone] Mar, [place] [id number] [place] [address] Feb, Bipolar affective, mixed 296.60 ; Posttraumatic stress disorder 309.81 ; Hypertension 401.9 ; Hyperlipidemia (Unspecified) 272.4 ; Coronary atherosclerosis due to calcified coronary lesion 414.4 ; Asthma, unspecified, unspecified status 493.90 ; Chronic pain syndrome 338.4 ; Hypothyroidism (unspecified) 244.9 ; Insomnia, unspecified 780.52 and tobacco use disorder 305.[address] [place] [address] [id number] Feb, Pneumonia 486 [facility] Outpatient [address] [address] Sep, Bipolar I disorder, most recent episode (or current) mixed, unspecified 296.60 [place] [id number] [place] [address] [id number] Sep, Hyperlipidemia (Unspecified) 272.4 and Congestive heart failure 428.0 [place] [address] [place] [address] [id number] Aug, [facility] Psych [address] [address] Aug, Bipolar affective, mixed 296.60 ; Posttraumatic stress disorder 309.81 ; Hypertension 401.9 ; Hyperlipidemia (Unspecified) 272.4 ; Coronary atherosclerosis due to calcified coronary lesion 414.4 ; Asthma, unspecified, unspecified status 493.90 ; Chronic pain syndrome 338.4 ; Hypothyroidism (unspecified) 244.9 ; Insomnia, unspecified 780.52 and tobacco use disorder 305.[address] [place] [address] [id number] Aug, [facility] Outpatient [address] [address] Aug, Major depressive disorder, recurrent episode, moderate 296.32 [address] [place] [address] [id number] Aug, Chronic pain syndrome 338.4 ; Asthma, unspecified, unspecified status 493.90 ; Hypothyroidism (unspecified) 244.9 ; Renal failure 586 ; Hyperlipidemia (Unspecified) 272.4 and Screening for HIV (human immunodeficiency virus) V73.89 [facility] [id number] [place] [address] Jul, Major depressive disorder, recurrent episode, moderate 296.32 Outpatient Adult [address] [place] [address] Jul, Major depressive disorder, recurrent episode, moderate 296.32 Outpatient Adult [address] [place] [address] Jul, Major depressive disorder, recurrent episode, moderate 296.32 [facility] [id number] [place] [address] Jul, Bipolar affective disorder, currently depressed, moderate 296.52 [facility] Psych [address] [address] June, Depressive disorder, not elsewhere classified 311 [...] moderate 296.32 and Posttraumatic stress disorder 309.81 [place] [address] [place] [address] [id number] June, [facility] Outpatient [address] [address] June, Major depressive disorder, recurrent episode, moderate 296.32 [place] [address] [place] [address] [id number] June, Chronic pain syndrome 338.4 [facility] Services [address] [place] [address] [id number] May, [facility] Outpatient [address] [address] May, Major depressive disorder, recurrent episode, moderate 296.32 and Posttraumatic stress disorder 309.81 [place] [id number] [place] [address] [id number] May, HIV (human immunodeficiency virus infection) V08 ; Hyperlipidemia (Unspecified) 272.4 and Chronic pain syndrome 338.4 [place] [address] [place] [address] [id number] Apr, Chronic pain syndrome 338.4 ; Hypertension 401.9 ; Human immunodeficiency virus [HIV] 042 and Asthma, unspecified, unspecified status 493.90 [facility] Outpatient [address] [address] Apr, Major depressive disorder, recurrent episode, moderate 296.32 [place] [id number] [place] [address] [id number] Apr, [address] [place] [address] [id number] Mar, HIV (human immunodeficiency virus infection) V08 [place] [id number] [place] [address] [id number] Mar, [place] [id number] [place] [address] Mar, Anxiety state, unspecified 300.[address] [id number] Mar, Lumbago 724.2 ; Other dyspnea and respiratory abnormalities 786.09 ; Hypothyroidism (unspecified) 244.9 ; Esophageal reflux 530.81 ; Hypertension 401.9 ; Hyperlipidemia (Unspecified) 272.4 and Screening for unspecified condition V82.9 [place] [id number] [place] [address] [id number] Feb, [address] [id number] Feb, Lumbago 724.[address] [id number] Feb, [address] [id number] Feb, [address] [id number] Jan, Lumbago 724.2 and Other dyspnea and respiratory abnormalities 786.09 [facility] Outpatient [address] [address] Dec, Major depressive disorder, recurrent episode, moderate 296.32 and Posttraumatic stress disorder 309.[id number] [place] [address] [id number] Dec, Lumbago 724.2 ; Esophageal reflux 530.81 and Hypothyroidism (unspecified) 244.9 [facility] Psych [place] [id number] [place] [address] Dec, Anxiety state, unspecified 300.[id number] [place] [address] Nov, Anxiety state, unspecified 300.[address] [id number] [id number] Nov, Lumbago 724.2 [facility] Outpatient [address] [address] Oct, Major depressive disorder, recurrent episode, moderate 296.32 and Posttraumatic stress disorder 309.[address] [id number] [id number] Oct, [id number] [place] [address] [id number] Sep, [id number] [place] [address] [id number] Sep, Lumbago 724.2 ; Unspecified urinary incontinence 788.30 and Obstructive sleep apnea (adult) (pediatric) 327.23 [facility] Outpatient [address] [address] Sep, Major depressive disorder, recurrent episode, moderate 296.32 and Posttraumatic stress disorder 309.[address] [id number] [id number] Sep, [address] [id number] [place] [address] [id number] Sep, [id number] [place] [address] [id number] Aug, [id number] [place] [address] Jul, Bipolar I disorder, most recent episode (or current) mixed, unspecified 296.60 and Anxiety state, unspecified 300.00 [facility] Outpatient [address] [address] Jul, Major depressive disorder, recurrent episode, moderate 296.32 and Posttraumatic stress disorder 309.[address] [id number], [place] [id number] Jul, Lumbago 724.2 ; Personal history of tobacco use, presenting hazards to health V15.82 ; Memory loss 780.93 and Obstructive sleep apnea (adult) (pediatric) 327.[address] [id number][place] [id number] Jul, [id number] [place] [address] [id number] Jul, [address] [id number] June, [address] [place] [address] [id number] June, [place] [id number] [place] [address] [id number] June, Cough 786.2 [facility] Psych [place] [id number] [place] [address] June, Anxiety state, unspecified 300.00 [facility] Outpatient [address] [address] May, Major depressive disorder, recurrent episode, moderate 296.32 and Posttraumatic stress disorder 309.81 [place] [address] [place] [address] [id number] May, Lumbago 724.2 and Other dyspnea and respiratory abnormalities 786.09 [facility] Dental [address] [place] [address] [id number] May, Unspecified dental caries 521.00 [facility] Outpatient [address] [address] Mar, Major depressive disorder, recurrent episode, moderate 296.32 and Posttraumatic stress disorder 309.81 [facility] Dental [address] [place] [address] [place] [address] [id number] Mar, Unspecified dental caries 521.00 and Other specified periodontal diseases 523.8 [place] [id number] [place] [address] [id number] Mar, Backache (Unspecified) 724.5 and Wheezing 786.07 [facility] Outpatient [address] [address] Mar, Major depressive disorder, recurrent episode, moderate 296.32 and Posttraumatic stress disorder 309.81 [facility] Outpatient [address] [address] Feb, Major depressive disorder, recurrent episode, moderate 296.32 and Posttraumatic stress disorder 309.81 [facility] [address] [place] [address] Feb, Major depressive disorder, recurrent episode, moderate 296.32 and 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 300.02 Outpatient Adult [address] [place] [address] Feb, Major depressive disorder, recurrent episode, moderate 296.32 and Posttraumatic stress disorder 309.81 [facility] Outpatient [address] [place] [address] Feb, Major depressive disorder, recurrent episode, moderate 296.32 and Posttraumatic stress disorder 309.81 [facility] Dental [address] [facility] [id number] [id number] Feb, Dental examination V72.2 and Periodontosis 523.5 [facility] [address] [facility] [id number] [id number] Feb, Lumbago 724.2 ; Esophageal reflux 530.81 ; Unspecified urinary incontinence 788.30 ; Constipation (Unspecified) 564.00 ; Other dyspnea and respiratory abnormalities 786.09 and Hypothyroidism (unspecified) 244.9 Outpatient Adult [address] [place] [address] Feb, Outpatient Adult [address] [place] [address] Feb, Major depressive disorder, recurrent episode, moderate 296.32 and Posttraumatic stress disorder 309.81 Outpatient Children [address] [place] [address] Feb, Major depressive disorder, recurrent episode, moderate 296.32 and Posttraumatic stress disorder 309.81 [facility] [address] [place], [place] [id number] Feb, IMMUNIZATIONS No Known Immunizations SOCIAL HISTORY [...] day in AM 1 tablet Apr, 30 day(s) Active Lovastatin 40 mg Orally Once a [...] 10/2014 Surgical History trach 09/2014 Hospitalization History [place], [place] 09/2014
--- OUTSIDE RECORDS SUMMARY | 2018-07-07 23:50 | XMS REPORT ---
Author Benjamin Samuels [facility] eClinicalWorks Address Unknown Phone Unavailable Care Team Providers Care Vocational Director Name Role Phone Benjamin Sierra Unavailable Allergies No Known Allergies Problems Problem Type Condition Code Onset Dates Condition Status Assessment Bipolar disorder, current episode mixed, unspecified F31.60 Active Problem Bipolar disorder, current episode mixed, unspecified F31.60 Active Medications Medication Code System Code Instructions Start Date End Date Status Dosage Daliresp [facility] [address]-77 500 MCG Orally Once a day 1 tablet [facility] 47858-42621 28-0.8 MG Orally not defined Acetaminophen [facility] [address]-67 500 MG Orally every 6 hrs 1 capsule as needed Levothyroxine Sodium [facility] [address]-89 50 MCG TAKE ONE TABLET BY MOUTH EVERY MORNING FOR EMPTY STOMACH Fish Oil [facility] [address]-22 1000 MG Orally as directed Advair HFA [facility] [address]-09 115-21 MCG/ACT Inhalation Twice a day 2 puffs Aspir-81 [facility] [address]-81 81 MG Orally Once a day 1 tablet Nicotrol [facility] [address]-84 10 MG Inhalation qid 1 puff as needed Vitamin D [facility] [address]-09 1000 UNIT Orally Once a day 1 tablet Xanax [facility] [address]-99 1 MG Orally tid prn anxiety 1 tablet Lisinopril [facility] [address]-85 2.5 MG Orally Once a day 1 tablet Nitroglycerin [facility] [address]-09 0.4 MG Sublingual every 8 hrs 1 tablet under the tongue Albuterol Sulfate A [facility] [address]-67 108 (90 Base) MCG/ACT Inhalation every 4 hrs 2 puffs as needed Albuterol Sulfate [facility] [address]-10 (2.5 MG/3ML) 0.083% Inhalation Three times a day Feb 25, 2012 3 ml Lamictal [facility] [address]-74 25 MG Orally at bedtime July 26, 2014 1 tablet Docusate Sodium [facility] [address]-71 100 MG Orally bid 1 capsule as needed Carvedilol [facility] [address]-07 25 MG Orally Twice a day Sep 28, 2013 1 tablet with food Spiriva HandiHaler [facility] [address]-45 18 MCG Inhalation Once a day 1 capsule Benzonatate [facility] [address]-75 200 MG Orally Three times a day Sep 28, 2013 1 capsule as needed Percocet [facility] [address]-75 7.5-325 MG Orally tid prn pain 1 tablet as needed Norvasc [facility] [address]-35 5 MG Orally Once a day 1 tablet Spironolactone [facility] [address]-32 25 MG Orally Twice a day 1 tablet Lexapro [facility] [address]-66 10 mg Orally Once a day in AM April 15, 2015 1/2 tablet Omeprazole [facility] [address]-70 20 MG Orally Once a day 1 tablet Coreg [facility] [address]-91 25 MG Orally Twice a day 1 tablet Potassium Chloride [facility] [address]-04 10 MEQ Orally Once a day April 29, 2011 2 tablet Lasix [facility] [address]-08 80 MG Orally Once a day 1 tablet Lovastatin [facility] [address]-14 40 mg Orally Once a day 1 tablet with a meal Results No Known Results Summary Purpose eClinicalWorks Submission
--- OUTSIDE RECORDS SUMMARY | 2018-07-07 23:50 | XMS REPORT ---
Author Author Deepika Christiansen Organization e[employer] Address Unknown Phone Unavailable Care Team Providers Care Bottom Man Name Role Phone Deepika Christiansen Unavailable Allergies No Known Allergies Problems Problem Type Condition Code Onset Dates Condition Status Problem Bipolar disorder, current episode mixed, unspecified F31.60 Active Medications Medication Code System Code Instructions Start Date End Date Status Dosage Benzonatate [facility] [address]-38 200 MG Orally Three times a day Sep 28, 2013 1 capsule as needed Potassium Chloride [facility] [address]-46 10 MEQ Orally Once a day April 29, 2011 2 tablet Aspir-81 [facility] [address]-20 81 MG Orally Once a day 1 tablet Spiriva HandiHaler [facility] [address]-44 18 MCG Inhalation Once a day 1 capsule Spironolactone [facility] [address]-16 25 MG Orally Twice a day 1 tablet Xanax [facility] [address]-40 0.5 MG Orally tid prn anxiety 1 tablet Advair HFA [facility] [address]-48 115-21 MCG/ACT Inhalation Twice a day 2 puffs Xanax [facility] [address]-48 1 MG Orally tid prn anxiety 1 tablet Coreg [facility] [address]-48 25 MG Orally Twice a day 1 tablet Percocet [facility] [address]-39 7.5-325 MG Orally tid prn pain 1 tablet as needed Results No Known Results Summary Purpose eClinicalWorks Submission
--- OUTSIDE RECORDS SUMMARY | 2018-07-07 23:50 | XMS REPORT ---
Author Benjamin Samuels [facility] eClinicalWorks Address Unknown Phone Unavailable Care Team Providers Care Electric Motor Winders Assembler Name Role Phone Benjamin Sierra Unavailable Allergies [...] Date End Date Status Dosage Spiriva HandiHaler [facility] [address]-96 18 MCG Inhalation Once a day 1 capsule Albuterol Sulfate [facility] [address]-57 (2.5 MG/3ML) 0.083% Inhalation Three times a day Feb 25, 2012 3 ml Fish Oil [facility] [address]-91 1000 MG Orally as directed Nitroglycerin [facility] [address]-84 0.4 MG Sublingual every 8 hrs 1 tablet under the tongue Levothyroxine Sodium [facility] [address]-63 50 MCG TAKE ONE TABLET BY MOUTH EVERY MORNING FOR EMPTY STOMACH Seroquel [facility] [address]-70 50 MG Orally at bedtime Dec 08, 2012 1 tablet Lamictal [facility] [address]-11 25 MG Orally at bedtime July 26, 2014 1 tablet Lovastatin [facility] [address]-60 40 mg Orally Once a day 1 tablet with a meal Coreg [facility] [address]-32 25 MG Orally Twice a day 1 tablet Omeprazole [facility] [address]-58 20 MG Orally Once a day 1 tablet Vitamin D [facility] [address]-41 1000 UNIT Orally Once a day 1 tablet Daliresp [facility] [address]-05 500 MCG Orally Once a day 1 tablet Nicotrol [facility] [address]-94 10 MG Inhalation qid 1 puff as needed Docusate Sodium [facility] [address]-20 100 MG Orally bid 1 capsule as needed Aspir-81 [facility] [address]-24 81 MG Orally Once a day 1 tablet Advair HFA [facility] [address]-74 115-21 MCG/ACT Inhalation Twice a day 2 puffs Lamictal [facility] [address]-09 25 MG Orally at bedtime 2 tablets [facility] 38019-98547 28-0.8 MG Orally not defined Lisinopril [facility] [address]-94 2.5 MG Orally Once a day 1 tablet Potassium Chloride [facility] [address]-26 10 MEQ Orally Once a day April 29, 2011 2 tablet Spironolactone [facility] [address]-05 25 MG Orally Twice a day 1 tablet Carvedilol [facility] [address]-70 25 MG Orally Twice a day Sep 28, 2013 1 tablet with food Xanax [facility] [address]-21 1 MG Orally tid prn anxiety 1 tablet Norvasc [facility] [address]-75 5 MG Orally Once a day 1 tablet Lasix [facility] [address]-08 80 MG Orally Once a day 1 tablet Benzonatate [facility] [address]-00 200 MG Orally Three times a day Sep 28, 2013 1 capsule as needed Albuterol Sulfate HFA [facility] [address]-54 108 (90 Base) MCG/ACT Inhalation every 4 hrs 2 puffs as needed Percocet [facility] [address]-95 7.5-325 MG Orally tid prn pain 1 tablet as needed Acetaminophen [facility] [address]-13 500 MG Orally every 6 hrs 1 capsule as needed Results No Known Results Summary Purpose eClinicalWorks Submission
--- OUTSIDE RECORDS SUMMARY | 2018-07-07 23:51 | XMS REPORT ---
Author Ezekiel Hernandez [employer] Address Unknown Phone Unavailable Care Team Providers Care Order Department Supervisor Name Role Phone Ezekiel Casper CP Unavailable [...] Start Date End Date Status Dosage Acyclovir [facility] [address]-86 400 MG Orally Three times a day Active 1 tablet Percocet [facility] [address]-13 7.5-325 MG Orally tid prn pain Active 1 tablet as needed Coreg [facility] [address]-43 25 mg Orally Twice a day Active 1/2 tablet Lisinopril [facility] [address]-16 20 MG Orally Once a day Active 1 tablet Diflucan [facility] [address]-46 200 MG Orally Once a day August 19, 2011 Active 1 tablet Levothyroxine Sodium [facility] [address]-11 50 MCG Active TAKE ONE TABLET BY MOUTH EVERY MORNING FOR EMPTY STOMACH PredniSONE [facility] [address]-42 20 mg Orally Once a day Feb 25, 2012 Active 1 tablet with food or milk Omeprazole [facility] [address]-64 20 MG Orally Once a day Active 1 tablet Fish Oil [facility] [address]-91 1000 MG Orally Active as directed Seroquel [facility] [address]-07 50 mg Orally at bedtime Dec 08, 2012 Active 1 tablet Celebrex [facility] [address]-30 200 MG Orally Once a day August 18, 2011 Active 1 capsule Lovastatin [facility] [address]-69 40 mg Orally Once a day Active 1 tablet with a meal Albuterol Sulfate [facility] [address]-67 (2.5 MG/3ML) 0.083% Inhalation Three times a day Feb 25, 2012 Active 3 ml Levofloxacin [facility] [address]-77 750 MG Orally Once a day Feb 25, 2012 Active 1 tablet Spironolactone [facility] [address]-50 25 MG Orally Twice a day Active 1 tablet Norvasc [facility] [address]-81 5 MG Orally Once a day Active 1 tablet Levalbuterol HCl [facility] [address]-39 0.63 MG/3ML Inhalation Three times a day August 18, 2011 Active 3 ml Ipratropium [place] [facility] [address]-43 0.02 % Inhalation Twice a day Feb 25, 2012 Active 1 vial Nitroglycerin [facility] [address]-76 0.4 MG Sublingual every 8 hrs Active 1 tablet under the tongue Albuterol Sulfate HFA [facility] [address]-20 108 (90 Base) MCG/ACT Inhalation every 4 hrs Active 2 puffs as needed Aspir-81 [facility] [address]-37 81 MG Orally Once a day Active 1 tablet Spiriva HandiHaler [facility] [address]-28 18 MCG Inhalation Once a day Active 1 capsule Vitamin D [facility] [address]-56 1000 UNIT Orally Once a day Active 1 tablet Dulcolax [facility] 82133-67023 5 MG Orally Once a day Active 1 tablet as needed for constipation Potassium Chloride [facility] [address]-95 10 MEQ Orally Once a day April 29, 2011 Active 2 tablet Xanax [facility] [address]-36 1 MG Orally tid prn agitation Active 1 tablet Acetaminophen [facility] [address]-04 500 MG Orally every 6 hrs Active 1 capsule as needed Lasix [facility] [address]-94 80 mg Orally Once a day Active 1 tablet Procedures Procedure Coding System Code Date ESTABPT LEVEL III CPT-4 34872 May 04, 2013 Results No Known Results Summary Purpose eClinicalWorks Submission
--- OUTSIDE RECORDS SUMMARY | 2018-07-07 23:51 | XMS REPORT ---
Author Author Jimbo Christianson [facility] eClinicalWorks Address Unknown Phone Unavailable Care Team Providers Care Senior Talent Acquisition Specialist Name Role Phone Jimbo Christianson Unavailable Allergies No Known Allergies Problems Problem Type Condition Code Onset Dates Condition Status Assessment Bipolar disorder, current episode mixed, unspecified F31.60 Active Problem Bipolar disorder, current episode mixed, unspecified F31.60 Active Medications Medication Code System Code Instructions Start Date End Date Status Dosage Advair HFA [facility] [address]-87 115-21 MCG/ACT Inhalation Twice a day 2 puffs Spiriva HandiHaler [facility] [address]-04 18 MCG Inhalation Once a day 1 capsule Lisinopril [facility] [address]-76 2.5 MG Orally Once a day 1 tablet Nitroglycerin [facility] [address]-23 0.4 MG Sublingual every 8 hrs 1 tablet under the tongue Acetaminophen [facility] [address]-90 500 MG Orally every 6 hrs 1 capsule as needed Xanax [facility] [address]-71 0.5 MG Orally tid prn anxiety 1 tablet Xanax [facility] [address]-88 1 MG Orally tid prn anxiety 1 tablet Aspir-81 [facility] [address]-88 81 MG Orally Once a day 1 tablet Lovastatin [facility] [address]-37 40 mg Orally Once a day 1 tablet with a meal Carvedilol [facility] [address]-60 25 MG Orally Twice a day Sep 28, 2013 1 tablet with food Nicotrol [facility] [address]-16 10 MG Inhalation qid 1 puff as needed Levothyroxine Sodium [facility] [address]-51 50 MCG TAKE ONE TABLET BY MOUTH EVERY MORNING FOR EMPTY STOMACH [facility] 63799-57328 28-0.8 MG Orally not defined Lamictal [facility] [address]-72 25 MG Orally at bedtime July 26, 2014 1 tablet Albuterol Sulfate A [facility] [address]-12 108 (90 Base) MCG/ACT Inhalation every 4 hrs 2 puffs as needed Albuterol Sulfate [facility] [address]-40 (2.5 MG/3ML) 0.083% Inhalation Three times a day Feb 25, 2012 3 ml Spironolactone [facility] [address]-73 25 MG Orally Twice a day 1 tablet Docusate Sodium [facility] [address]-70 100 MG Orally bid 1 capsule as needed Coreg [facility] [address]-11 25 MG Orally Twice a day 1 tablet Fish Oil [facility] [address]-00 1000 MG Orally as directed Lasix [facility] [address]-47 80 MG Orally Once a day 1 tablet Norvasc [facility] [address]-08 5 MG Orally Once a day 1 tablet Lexapro [facility] [address]-85 10 mg Orally Once a day in AM April 15, 2015 1/2 tablet Omeprazole [facility] [address]-22 20 MG Orally Once a day 1 tablet Potassium Chloride [facility] [address]-64 10 MEQ Orally Once a day April 29, 2011 2 tablet Daliresp [facility] [address]-17 500 MCG Orally Once a day 1 tablet Percocet [facility] [address]-90 7.5-325 MG Orally tid prn pain 1 tablet as needed Vitamin D [facility] [address]-09 1000 UNIT Orally Once a day 1 tablet Benzonatate [facility] [address]-31 200 MG Orally Three times a day Sep 28, 2013 1 capsule as needed Procedures Procedure Coding System Code Date ESTAB PT LEVEL IV CPT-4 95155 Nov 05, 2015 [facility] VISIT ESTABLISHED PATIENTS CPT-4 G0467 Nov 05, 2015 Vital Signs Date/Time: Nov 05, 2015 Temperature 97.9 F Weight wc lbs Height wc in Pain Scale 0 0-10 Blood Pressure Diastolic 83 mm Hg Blood Pressure Systolic 135 mm Hg Results No Known Results Summary Purpose eClinicalWorks Submission
--- OUTSIDE RECORDS SUMMARY | 2018-07-07 23:51 | XMS REPORT ---
Author Author Benjamin Sierra Organization eClinicalWorks Address Unknown Phone Unavailable Care Team Providers Care Ultrasonographer Name Role Phone Benjamin Sierra CP Unavailable Allergies No Known Allergies Problems Problem Type Condition Code Onset Dates Condition Status Assessment Bipolar disorder, current episode mixed, unspecified F31.60 Active Problem Bipolar disorder, current episode mixed, unspecified F31.60 Active Medications Medication Code System Code Instructions Start Date End Date Status Dosage Aspir-81 [facility] [address]-87 81 MG Orally Once a day 1 tablet Spiriva HandiHaler [facility] [address]-53 18 MCG Inhalation Once a day 1 capsule Benzonatate [facility] [address]-79 200 MG Orally Three times a day Sep 28, 2013 1 capsule as needed Spironolactone [facility] [address]-05 25 MG Orally Twice a day 1 tablet Xanax [facility] [address]-08 1 MG Orally tid prn anxiety 1 tablet Percocet [facility] [address]-63 7.5-325 MG Orally tid prn pain 1 tablet as needed Potassium Chloride [facility] [address]-16 10 MEQ Orally Once a day April 29, 2011 2 tablet Coreg [facility] [address]-34 25 MG Orally Twice a day 1 tablet Advair HFA [facility] [address]-91 115-21 MCG/ACT Inhalation Twice a day 2 puffs Xanax [facility] [address]-59 0.5 MG Orally tid prn anxiety 1 tablet Procedures Procedure Coding System Code Date PSYTX PT&/FAMILY 45 MINUTES CPT-4 67507 Jan 07, 2016 [facility] VISIT MENTAL HEALTH ESTABLISHED PATIENT CPT-4 G0470 Jan 07, 2016 Results No Known Results Summary Purpose eClinicalWorks Submission
--- OUTSIDE RECORDS SUMMARY | 2018-07-07 23:51 | XMS REPORT ---
Author Author Benjamin Sierra [facility] Address [address], [place] [id number] Care Team Providers Care Caddie Supervisor Name Role Phone [place], Benjamin Unavailable PROBLEMS Type Condition ICD9-CM Code [id number] Code Onset Dates Condition Status SNOMED Code Problem Bipolar disorder, current episode mixed, unspecified F31.60 Active 24457807 Assessment Bipolar disorder, current episode mixed, unspecified F31.60 Jan, Active [id number] ALLERGIES Unknown Allergies SOCIAL HISTORY No smoking [...]
--- OUTSIDE RECORDS SUMMARY | 2018-07-07 23:51 | XMS REPORT ---
Author Author Jimbo Christianson Organization eClinicalWorks Address Unknown Phone Unavailable Care Team Providers Care Venereal Disease Investigator Name Role Phone Jimbo Christianson CP Unavailable [...] Date End Date Status Dosage Aspir-81 [facility] [address]-59 81 MG Orally Once a day 1 tablet Spironolactone [facility] [address]-92 25 MG Orally Twice a day 1 tablet Potassium Chloride [facility] [address]-22 10 MEQ Orally Once a day April 29, 2011 2 tablet Spiriva HandiHaler [facility] [address]-52 18 MCG Inhalation Once a day 1 capsule Advair HFA [facility] [address]-30 115-21 MCG/ACT Inhalation Twice a day 2 puffs Fluticasone Propionate (Inhal) [facility] [address]-02 50 MCG/BLIST Inhalation Twice a day 1 puff Oxycodone-Acetaminophen [facility] [address]-79 7.5-325 MG Orally every 6 hrs 1 tablet as needed Coreg [facility] [address]-17 25 MG Orally Twice a day 1 tablet Percocet [facility] [address]-92 7.5-325 MG Orally tid prn pain 1 tablet as needed Acyclovir [facility] [address]-46 400 MG Orally Twice a day 1 tablet Polyethylene Glycol [facility] [address]-31 - not defined Benzonatate [facility] [address]-75 200 MG Orally Three times a day Sep 28, 2013 1 capsule as needed Lexapro [facility] [address]-48 10 mg Orally Once a day in AM April 15, 2015 1 tablet Torsemide [facility] [address]-31 10 MG Orally Once a day 1 tablet Amiodarone HCl [facility] [address]-68 200 MG Orally Once a day 1 tablet Xanax [facility] [address]-53 0.5 MG Orally Three times a day 1 tablet Xanax [facility] [address]-36 1 MG Orally tid prn anxiety 1 tablet Voltaren [facility] [address]-59 1 % Transdermal not defined Procedures Procedure Coding System Code Date ESTAB PT LEVEL III CPT-4 71716 Jan 17, 2016 [facility]CLUDES THE [facility] VISIT ESTABLISHED PATIENTS CPT-4 G0467 Jan 17, 2016 Vital Signs Date/Time: Jan 17, 2016 Temperature 97.9 F Weight w/c lbs Height w/c in Pain Scale 0 0-10 Blood Pressure Diastolic 78 mm Hg Blood Pressure Systolic 108 mm Hg Results No Known Results Summary Purpose eClinicalWorks Submission
--- OUTSIDE RECORDS SUMMARY | 2018-07-07 23:51 | XMS REPORT ---
Author Benjamin Samuels [facility] eClinicalWorks Address Unknown Phone Unavailable Care Team Providers Care Knock Out Hand Name Role Phone Benjamin Sierra Unavailable Allergies No Known Allergies Problems Problem Type Condition Code Onset Dates Condition Status Assessment Bipolar disorder, current episode mixed, unspecified F31.60 Active Problem Bipolar disorder, current episode mixed, unspecified F31.60 Active Medications Medication Code System Code Instructions Start Date End Date Status Dosage Lexapro [facility] [address]-14 10 mg Orally Once a day in AM April 15, 2015 1/2 tablet Spironolactone [facility] [address]-23 25 MG Orally Twice a day 1 tablet [facility] 55431-[address]304 28-0.8 MG Orally not defined Levothyroxine Sodium [facility] [address]-97 50 MCG TAKE ONE TABLET BY MOUTH EVERY MORNING FOR EMPTY STOMACH Aspir-81 [facility] [address]-96 81 MG Orally Once a day 1 tablet Omeprazole [facility] [address]-37 20 MG Orally Once a day 1 tablet Albuterol Sulfate [facility] [address]-70 (2.5 MG/3ML) 0.083% Inhalation Three times a day Feb 25, 2012 3 ml Docusate Sodium [facility] [address]-66 100 MG Orally bid 1 capsule as needed Daliresp [facility] [address]-21 500 MCG Orally Once a day 1 tablet Nitroglycerin [facility] [address]-31 0.4 MG Sublingual every 8 hrs 1 tablet under the tongue Spiriva HandiHaler [facility] [address]-43 18 MCG Inhalation Once a day 1 capsule Advair HFA [facility] [address]-02 115-21 MCG/ACT Inhalation Twice a day 2 puffs Norvasc [facility] [address]-15 5 MG Orally Once a day 1 tablet Albuterol Sulfate HFA [facility] [address]-55 108 (90 Base) MCG/ACT Inhalation every 4 hrs 2 puffs as needed Lamictal [facility] [address]-24 25 MG Orally at bedtime July 26, 2014 1 tablet Xanax [facility] [address]-20 1 MG Orally tid prn anxiety 1 tablet Vitamin D [facility] [address]-30 1000 UNIT Orally Once a day 1 tablet Carvedilol [facility] [address]-23 25 MG Orally Twice a day Sep 28, 2013 1 tablet with food Nicotrol [facility] [address]-33 10 MG Inhalation qid 1 puff as needed Benzonatate [facility] [address]-34 200 MG Orally Three times a day Sep 28, 2013 1 capsule as needed Acetaminophen [facility] [address]-78 500 MG Orally every 6 hrs 1 capsule as needed Fish Oil [facility] [address]-19 1000 MG Orally as directed Lisinopril [facility] [address]-90 2.5 MG Orally Once a day 1 tablet Percocet [facility] [address]-11 7.5-325 MG Orally tid prn pain 1 tablet as needed Lovastatin [facility] [address]-01 40 mg Orally Once a day 1 tablet with a meal Lasix [facility] [address]-92 80 MG Orally Once a day 1 tablet Potassium Chloride [facility] [address]-81 10 MEQ Orally Once a day April 29, 2011 2 tablet Coreg [facility] [address]-77 25 MG Orally Twice a day 1 tablet Procedures Procedure Coding System Code Date PSYTX PT&/FAMILY 45 MINUTES CPT-4 30453 Nov 05, 2015 [facility] VISIT MENTAL HEALTH ESTABLISHED PATIENT CPT-4 G0470 Nov 05, 2015 Results No Known Results Summary Purpose eClinicalWorks Submission
--- OUTSIDE RECORDS SUMMARY | 2018-07-07 23:51 | XMS REPORT ---
Author Author Jimbo Christianson [facility] Address [address] [place] [address] Care Team Providers Care Counter Helper Name Role Phone Jimbo Christianson Unavailable PROBLEMS Type Condition ICD9-CM Code [id number] Code Onset Dates Condition Status SNOMED Code Problem Bipolar disorder, current episode mixed, unspecified F31.60 Active [id number] ALLERGIES Unknown Allergies SOCIAL HISTORY No smoking Hx information available PLAN OF CARE VITAL SIGNS MEDICATIONS Unknown Medications RESULTS No Results PROCEDURES No Known procedures IMMUNIZATIONS No Known Immunizations
--- NOTE | 2018-07-07 23:52 | ED Respiratory ---
General Chief Complaint: Respiratory Problems Stated Complaint: SOB Source: patient, EMS History of Present Illness Date Seen by Provider: July 07, 2018 Time Seen by Provider: 23:52 Initial Comments 62-year-old female presenting with complaints of shortness of breath. She was visiting her brother nicolasa and as she was going out to the car she became more short of breath. She was off her oxygen while this was happening. She recently had been seen in and diagnosed with COPD exacerbation. She is on steroids for that. She denies having any fever or chills. She has been more short of breath. She feels that she has more swelling in her hands and leg. She has been coughing up thick greenish yellow mucus. She has been using her oxygen more recently. Allergies and Home Medications Allergies Coded Allergies: No Known Drug Allergies (Unverified , 07/08/18) Home Medications Acyclovir 400 Mg Tablet, 400 MG PO BID, (Reported) Albuterol Sulfate 2.5 Mg/3 Ml Vial.neb, 2.5 MG INH Q4H, (Reported) Apixaban 5 Mg Tab.ds.pk, 5 MG PO BID, (Reported) Aspirin 81 Mg Tab.chew, 81 MG PO DAILY, (Reported) Atorvastatin Calcium 40 Mg Tablet, 40 MG PO DAILY, (Reported) Cholecalciferol (Vitamin D3) 1,000 Unit Tablet, 1,000 UNIT PO DAILY, (Reported) Docusate Sodium 100 Mg Capsule, 100 MG PO BID PRN, (Reported) Escitalopram Oxalate 10 Mg Tablet, 10 MG PO DAILY, (Reported) Fluticasone/Vilanterol 1 Each Blst.w.dev, 1 EACH IH DAILY, (Reported) Guaifenesin 400 Mg Tablet, 400 MG PO BID PRN, (Reported) Hydralazine HCl 50 Mg Tablet, 50 MG PO TID, (Reported) Ipratropium/Albuterol Sulfate 3 Ml Ampul.neb, 3 ML IH BID PRN for SHORTNESS OF BREATH, (Reported) Isosorbide Mononitrate 30 Mg Tab.er.24h, 30 MG PO DAILY, (Reported) Levothyroxine Sodium 25 Mcg Tablet, 25 MCG PO DAILY, (Reported) Lorazepam 1 Mg Tablet, 1 MG PO TID, (Reported) Metformin HCl 500 Mg Tab.er.24h, 500 MG PO DAILY, (Reported) Metoprolol Succinate 100 Mg Tab.er.24h, 100 MG PO DAILY, (Reported) Nitroglycerin 0.4 Mg Tab.subl, 0.4 MG SL PRN, (Reported) [place]-3/Dha/Epa/Fish Oil 1 Each Capsule, 1 EACH PO DAILY, (Reported) Ondansetron 4 Mg Tab.rapdis, 4 MG PO PRN, (Reported) Oxycodone HCl/Acetaminophen 1 Each Tablet, 1 EACH PO Q4H PRN for PAIN-MODERATE, (Reported) Promethazine HCl/Codeine 5 Ml Syrup, 5 ML PO Q4H, (Reported) Ranitidine HCl 150 Mg Tablet, 150 MG PO BID, (Reported) Sacubitril/Valsartan 1 Each Tablet, 1 TAB PO BID, (Reported) Sennosides 8.6 Mg Tablet, 8.6 MG PO PRN, (Reported) Spironolactone 25 Mg Tablet, 25 MG PO DAILY, (Reported) Tiotropium Erhard 1 Inh Aerp, 1 INH IH DAILY, (Reported) Torsemide 20 Mg Tablet, 20 MG PO DAILY, (Reported) Patient Home Medication List Home Medication List Reviewed: Yes Review of Systems Review of Systems Constitutional: No chills, No fever EENTM: no symptoms reported Respiratory: see HPI, cough, dyspnea on exertion, phlegm, short of breath Cardiovascular: no symptoms reported; No chest pain Gastrointestinal: no symptoms reported Genitourinary: no symptoms reported Musculoskeletal: no symptoms reported Skin: no symptoms reported Past Vjpuvlu-Ohkhtq-Nqyche Hx Past Med/Social Hx: Reviewed Nursing Past Med/Soc Hx Patient Social History Recent Foreign Travel: No Contact w/Someone Who Travel: No Physical Exam Vital Signs - First Documented 07/07/18 23:36 Temp 97.3 Pulse 97 Resp 20 B/P (MAP) 153/89 (110) Pulse Ox 100 O2 Delivery Nasal Cannula O2 Flow Rate 3.00 Capillary Refill : Height: '" Weight: lbs. oz. kg; BMI Method: General Appearance: WD/WN, no apparent distress, obese HEENT: normal ENT inspection, pharynx normal Neck: non-tender, full range of motion, supple Respiratory: chest non-tender, no respiratory distress, no accessory muscle use, decreased breath sounds, rales (bases); No rhonchi, No stridor, No wheezing Cardiovascular: normal peripheral pulses, regular rate, rhythm Gastrointestinal: normal bowel sounds, non tender, soft, no pulsatile mass Extremities: normal range of motion, non-tender, normal capillary refill, other (mild edema to fingers and hands) Neurologic/Psychiatric: alert, normal mood/affect, oriented x 3 Skin: normal color, warm/dry Progress/Results/Core Measures Suspected Sepsis SIRS Temperature: Pulse: Respiratory Rate: Laboratory Tests 07/08/18 00:01: White Blood Count 6.9 Blood Pressure / Mean: Laboratory Tests 07/08/18 00:01: Creatinine 1.18, Platelet Count 214, Total Bilirubin 0.3 Results/Orders Lab Results Laboratory Tests Test 07/08/18 00:01 Range/Units White Blood Count 6.9 4.3-11.0 10^3/uL Red Blood Count 4.86 4.35-5.85 10^6/uL Hemoglobin 12.3 11.5-16.0 G/DL Hematocrit 42 35-52 % Mean Corpuscular Volume 86 80-99 FL Mean Corpuscular Hemoglobin 25 25-34 PG Mean Corpuscular Hemoglobin Concent 30 L 32-36 G/DL Red Cell Distribution Width 14.6 H 10.0-14.5 % Platelet Count 214 130-400 10^3/uL Mean Platelet Volume 11.0 H 7.4-10.4 FL Neutrophils (%) (Auto) 71 42-75 % Lymphocytes (%) (Auto) 26 12-44 % Monocytes (%) (Auto) 3 0-12 % Eosinophils (%) (Auto) 0 0-10 % Basophils (%) (Auto) 0 0-10 % Neutrophils # (Auto) 4.9 1.8-7.8 X 10^3 Lymphocytes # (Auto) 1.8 1.0-4.0 X 10^3 Monocytes # (Auto) 0.2 0.0-1.0 X 10^3 Eosinophils # (Auto) 0.0 0.0-0.3 10^3/uL Basophils # (Auto) 0.0 0.0-0.1 10^3/uL Sodium Level 138 135-145 MMOL/L Potassium Level 4.6 3.6-5.0 MMOL/L Chloride Level 103 98-107 MMOL/L Carbon Dioxide Level 19 L 21-32 MMOL/L Anion Gap 16 H 5-14 MMOL/L Blood Urea Nitrogen 16 7-18 MG/DL Creatinine 1.18 0.60-1.30 MG/DL Estimat Glomerular Filtration Rate 56 BUN/Creatinine Ratio 14 Glucose Level 212 H 70-105 MG/DL Calcium Level 9.7 8.5-10.1 MG/DL Corrected Calcium 9.4 8.5-10.1 MG/DL Magnesium Level 1.7 L 1.8-2.4 MG/DL Total Bilirubin 0.3 0.1-1.0 MG/DL Aspartate Amino Transf (AST/SGOT) 14 5-34 U/L Alanine Aminotransferase (ALT/SGPT) 10 0-55 U/L Alkaline Phosphatase 162 H 40-136 U/L Pro-B-Type Natriuretic Peptide 880.0 H <75.0 PG/ML Total Protein 7.1 6.4-8.2 GM/DL Albumin 4.4 3.2-4.5 GM/DL My Orders Orders - ENYARTXIN MD Cbc With Automated Diff (07/08/18 00:57) Comprehensive Metabolic Panel (07/08/18 00:57) Chest 1 View Ap/Pa Only (07/08/18 00:57) Magnesium (07/08/18 00:57) Ekg Tracing (07/08/18 00:57) O2 (07/08/18 00:57) Ed Iv/Invasive Line Start (07/08/18 00:57) Monitor-Rhythm Ecg Trace Only (07/08/18 00:57) Probnp Fs (07/08/18 00:57) Fentanyl Injection (Sublimaze Injection (07/08/18 01:00) Ondansetron Injection (Zofran Injectio (07/08/18 00:57) Furosemide Injection (Lasix Injection) (07/08/18 00:57) Medications Given in ED Current Medications Medications Dose Ordered Sig/[place] Start Time Stop Time Status Last Admin Dose Admin Fentanyl Citrate 50 mcg ONCE ONCE IVP 07/08/18 01:00 07/08/18 01:01 DC 07/08/18 01:15 50 MCG Vital Signs/I&O 07/07/18 07/08/18 23:36 01:26 Temp 97.3 Pulse 97 Resp 20 B/P (MAP) 153/89 (110) Pulse Ox 100 99 O2 Delivery Nasal Cannula Nasal Cannula O2 Flow Rate 3.00 3.00 Capillary Refill : Progress Note #1: Progress Note Will check basic labs and chest x-ray. Her breathing is doing much better now after her breathing treatment by EMS. We will add in a dose of Lasix since she has a history of heart failure as well. Progress Note #2: Progress Note labs are stable and show mild elevation of BNP to 888. Her CXR on my review of her 1 view film shows no definite infiltrate or effusions. She is having good output with the Lasix. Will d/c home to take additional 20 mg torsemide daily for 3 days. ECG Initial ECG Impression Date: July 08, 2018 Initial ECG Impression Time: 01:09 Initial ECG Rate: 84 Initial ECG Intervals: Normal Initial ECG Comparisson: Unchanged Comment Atrial sensed ventricular paced complexes. Her heart rate is 84 bpm. WA interval of 132 ms with a QT corrected interval of 463 ms. Her QT interval was 391 ms. This appears stable from her prior tracings. Diagnostic Imaging Diagonstic Imaging: Xray Plain Films/CT/US/NM/MRI: chest Comments On my review of her 1 view chest x-ray shows no acute infiltrate or effusions. She has chronic cardiomegaly Reviewed: Reviewed by Me Departure Impression Primary Impression: Shortness of breath Additional Impressions: CHF exacerbation Qualified Codes: I50.9 - Heart failure, unspecified COPD, frequent exacerbations Disposition: HOME, SELF-CARE Condition: Stable Departure-Patient Inst. Decision time for Depature: 01:49 Referrals: NO,LOCAL PHYSICIAN (PCP) Primary Care Physician Patient Instructions: COPD Including Emphysema (DC), Shortness of Breath (Dyspnea) (DC), Heart Failure, Adult (DC) Add. Discharge Instructions: Continue on your regular medicines and check with clinic for continued concerns. Use your oxygen to help with your breathing. For the next 3 days take an extra 20 mg dose of your Torsemide to help with fluid and your breathing. All discharge instructions reviewed with patient and/or family. Voiced understanding. XIN LOAIZA MD July 07, 2018 23:52
--- OUTSIDE RECORDS SUMMARY | 2018-07-07 23:52 | XMS REPORT | Continuity of Care Document ---
Author Organization Unknown Address Unknown Allergies Active Description Code Type Severity Reaction Onset Reported/Identified Relationship to Patient Clinical Status Yes IVP DYE IVP DYE Unknown N/A 03/31/2018 Yes No Known Drug Allergies [id number] Drug Allergy Unknown N/A 03/31/2018 Yes PLASTIC TAPE PLASTIC TAPE Unknown N/A 03/31/2018 Yes albuterol [id number] Drug Allergy Severe N/A 06/21/2018 Yes morphine [id number] Drug Allergy Mild N/A 06/21/2018 Medications There is no data. Problems Date Dx Coded Attending Type Code Diagnosis Diagnosed By 04/01/2018 MAGED RODGERS DO Ot I42.9 CARDIOMYOPATHY, UNSPECIFIED 04/01/2018 MAGED RODGERS DO Ot I50.9 HEART FAILURE, UNSPECIFIED 04/01/2018 MAGED RODGERS DO Ot J44.9 CHRONIC OBSTRUCTIVE PULMONARY DISEASE, U 04/01/2018 MAGED RODGERS DO Ot R06.02 SHORTNESS OF BREATH 04/01/2018 MAGED RODGERS DO Ot R07.9 CHEST PAIN, UNSPECIFIED 04/01/2018 MAGED RODGERS DO Ot R79.89 OTHER SPECIFIED ABNORMAL FINDINGS OF BLO 04/01/2018 MAGED RODGERS DO Ot Z88.5 ALLERGY STATUS TO NARCOTIC AGENT STATUS 04/01/2018 MAGED ROGDERS DO Ot Z88.8 ALLERGY STATUS TO OTH DRUG/MEDS/BIOL SUB 04/01/2018 MAGED RODGERS DO Ot Z91.041 RADIOGRAPHIC DYE ALLERGY STATUS 04/01/2018 MAGED RODGERS DO Ot Z91.048 OTHER NONMEDICINAL SUBSTANCE ALLERGY STA 04/01/2018 MAGED RODGERS DO Ot Z95.810 PRESENCE OF AUTOMATIC (IMPLANTABLE) CARD 04/06/2018 MAGED RODGERS DO Ot I42.9 CARDIOMYOPATHY, UNSPECIFIED 04/06/2018 MAGED RODGERS DO Ot I50.9 HEART FAILURE, UNSPECIFIED 04/06/2018 MAGED RODGERS DO Ot J44.9 CHRONIC OBSTRUCTIVE PULMONARY DISEASE, U 04/06/2018 ANA MARIA ASKEW MAGED Jayne Ot R06.02 SHORTNESS OF BREATH 04/06/2018 ANA MARIA ASKEW MAGED Jayne Ot R07.9 CHEST PAIN, UNSPECIFIED 04/06/2018 ANA MARIA ASKEW MAGED Godoy Ot R79.89 OTHER SPECIFIED ABNORMAL FINDINGS OF BLO 04/06/2018 ANA MARIA DO MAGED B Ot Z88.5 ALLERGY STATUS TO NARCOTIC AGENT STATUS 04/06/2018 ANA MARIA ASKEW MAGED B Ot Z88.8 ALLERGY STATUS TO OTH DRUG/MEDS/BIOL SUB 04/06/2018 ANA MARIA ASKEW MAGED B Ot Z91.041 RADIOGRAPHIC DYE ALLERGY STATUS 04/06/2018 ANA MARIA ASKEW MAGED B Ot Z91.048 OTHER NONMEDICINAL SUBSTANCE ALLERGY STA 04/06/2018 ANA MARIA ASKEW MAGED B Ot Z95.810 PRESENCE OF AUTOMATIC (IMPLANTABLE) CARD 04/11/2018 ASIM AKBAR MD Ot E11.9 TYPE 2 DIABETES MELLITUS WITHOUT COMPLIC 04/11/2018 ASIM AKBAR MD Ot G89.29 OTHER CHRONIC PAIN 04/11/2018 ASIM AKBAR MD Ot I25.2 OLD MYOCARDIAL INFARCTION 04/11/2018 ASIM AKBAR MD Ot J44.9 CHRONIC OBSTRUCTIVE PULMONARY DISEASE, U 04/11/2018 ASIM AKBAR MD Ot M79.604 PAIN IN RIGHT LEG 04/11/2018 ASIM AKBAR MD Ot Z88.5 ALLERGY STATUS TO NARCOTIC AGENT STATUS 04/11/2018 ASIM AKBAR MD Ot Z88.8 ALLERGY STATUS TO OTH DRUG/MEDS/BIOL SUB 04/11/2018 ASIM AKBAR MD Ot Z89.511 ACQUIRED ABSENCE OF RIGHT LEG BELOW KNEE 04/11/2018 ASIM AKBAR MD Ot Z91.041 RADIOGRAPHIC DYE ALLERGY STATUS 04/11/2018 ASIM AKBAR MD Ot Z91.048 OTHER NONMEDICINAL SUBSTANCE ALLERGY STA 04/11/2018 ASIM AKBAR MD Ot Z95.810 PRESENCE OF AUTOMATIC (IMPLANTABLE) CARD 04/13/2018 ASIM AKBAR MD Ot E11.9 TYPE 2 DIABETES MELLITUS WITHOUT COMPLIC 04/13/2018 ASIM AKBAR MD Ot G89.29 OTHER CHRONIC PAIN 04/13/2018 ASIM AKBAR MD Ot I25.2 OLD MYOCARDIAL INFARCTION 04/13/2018 ASIM AKBAR MD Ot J44.9 CHRONIC OBSTRUCTIVE PULMONARY DISEASE, U 04/13/2018 NAOMIE SARGENT, ASIM Clinton Ot M79.604 PAIN IN RIGHT LEG 04/13/2018 NAOMIE SARGENT, ASIM [place] Ot Z88.5 ALLERGY STATUS TO NARCOTIC AGENT STATUS 04/13/2018 ASIM AKBAR MD Ot Z88.8 ALLERGY STATUS TO OTH DRUG/MEDS/BIOL SUB 04/13/2018 ASIM AKBAR MD Ot Z89.511 ACQUIRED ABSENCE OF RIGHT LEG BELOW KNEE 04/13/2018 ASIM ABKAR MD Ot Z91.041 RADIOGRAPHIC DYE ALLERGY STATUS 04/13/2018 ASIM AKBAR MD Ot Z91.048 OTHER NONMEDICINAL SUBSTANCE ALLERGY STA 04/13/2018 ASIM AKBAR MD Ot Z95.810 PRESENCE OF AUTOMATIC (IMPLANTABLE) CARD 04/14/2018 LANDA DO, KEYSHAWN Ot E11.9 TYPE 2 DIABETES MELLITUS WITHOUT COMPLIC 04/14/2018 LANDA DO, KYESHAWN Ot G89.29 OTHER CHRONIC PAIN 04/14/2018 LANDA DO, KEYSHAWN Ot I25.2 OLD MYOCARDIAL INFARCTION 04/14/2018 LANDA DO, KEYSHAWN Ot J44.9 CHRONIC OBSTRUCTIVE PULMONARY DISEASE, U 04/14/2018 LANDA DO, KEYSHAWN Ot M79.604 PAIN IN RIGHT LEG 04/14/2018 LANDA DO, KEYSHAWN Ot Z88.5 ALLERGY STATUS TO NARCOTIC AGENT STATUS 04/14/2018 LANDA DO, KEYSHAWN Ot Z88.8 ALLERGY STATUS TO OTH DRUG/MEDS/BIOL SUB 04/14/2018 LANDA DO, KEYSHAWN Ot Z91.041 RADIOGRAPHIC DYE ALLERGY STATUS 04/14/2018 LANDA DO, KEYSHAWN Ot Z91.048 OTHER NONMEDICINAL SUBSTANCE ALLERGY STA 04/14/2018 SYEDA DO, KEYSHAWN Ot Z95.810 PRESENCE OF AUTOMATIC (IMPLANTABLE) CARD 04/14/2018 LANDA DO, KEYSHAWN Ot Z98.890 OTHER SPECIFIED POSTPROCEDURAL STATES 04/18/2018 LANDA DO, KEYSHAWN Ot E11.9 TYPE 2 DIABETES MELLITUS WITHOUT COMPLIC 04/18/2018 LANDA DO, KEYSHAWN Ot G89.29 OTHER CHRONIC PAIN 04/18/2018 LANDA DO, KEYSHAWN Ot I25.2 OLD MYOCARDIAL INFARCTION 04/18/2018 LANDA DO, KEYSHAWN Ot J44.9 CHRONIC OBSTRUCTIVE PULMONARY DISEASE, U 04/18/2018 LANDA DO, KEYSHAWN Ot M79.604 PAIN IN RIGHT LEG 04/18/2018 LANDA DO, KEYSHAWN Ot Z88.5 ALLERGY STATUS TO NARCOTIC AGENT STATUS 04/18/2018 LANDA DO, KEYSHAWN Ot Z88.8 ALLERGY STATUS TO OTH DRUG/MEDS/BIOL SUB 04/18/2018 SYEDA ASKEW KEYSHAWN Ot Z91.041 RADIOGRAPHIC DYE ALLERGY STATUS 04/18/2018 SYEDA ASKEW KEYSHAWN Ot Z91.048 OTHER NONMEDICINAL SUBSTANCE ALLERGY STA 04/18/2018 SYEDA ASKEW KEYSHAWN Ot Z95.810 PRESENCE OF AUTOMATIC (IMPLANTABLE) CARD 04/18/2018 SYEDA ASKEWKEYSHAWN Ot Z98.890 OTHER SPECIFIED POSTPROCEDURAL STATES 04/22/2018 FAIZA JUAREZ DO T Ot E11.9 TYPE 2 DIABETES MELLITUS WITHOUT COMPLIC 04/22/2018 ANJEL JUAREZ DOED T Ot I25.2 OLD MYOCARDIAL INFARCTION 04/22/2018 FAIZA JUAREZ DO T Ot I48.91 UNSPECIFIED ATRIAL FIBRILLATION 04/22/2018 FAIZA JUAREZ DO T Ot I49.3 VENTRICULAR PREMATURE DEPOLARIZATION 04/22/2018 ANJEL JUAREZ DOED T Ot I50.9 HEART FAILURE, UNSPECIFIED 04/22/2018 FAIZA JUAREZ DO T Ot J44.9 CHRONIC OBSTRUCTIVE PULMONARY DISEASE, U 04/22/2018 FAIZA JUAREZ DO T Ot N28.9 DISORDER OF KIDNEY AND URETER, UNSPECIFI 04/22/2018 ANJEL JUAREZ DOED T Ot R79.89 OTHER SPECIFIED ABNORMAL FINDINGS OF BLO 04/22/2018 FAIZA JUAREZ DO Ot Z79.01 LONG-TERM (CURRENT) USE OF ANTICOAGULANT 04/22/2018 FAIZA JUAREZ DO T Ot Z88.5 ALLERGY STATUS TO NARCOTIC AGENT STATUS 04/22/2018 FAIZA JUAREZ DO T Ot Z88.8 ALLERGY STATUS TO OTH DRUG/MEDS/BIOL SUB 04/22/2018 FAIZA JUAREZ DO T Ot Z91.041 RADIOGRAPHIC DYE ALLERGY STATUS 04/22/2018 FAIZA JUAREZ DO T Ot Z91.048 OTHER NONMEDICINAL SUBSTANCE ALLERGY STA 04/22/2018 FAIZA JUAREZ DO T Ot Z95.810 PRESENCE OF AUTOMATIC (IMPLANTABLE) CARD 04/22/2018 FAIZA JUAREZ DO T Ot Z99.81 DEPENDENCE ON SUPPLEMENTAL OXYGEN 05/30/2018 FAIZA JUAREZ DO T Ot E11.9 TYPE 2 DIABETES MELLITUS WITHOUT COMPLIC 05/30/2018 FAIZA JUAREZ DO T Ot F17.210 NICOTINE DEPENDENCE, CIGARETTES, UNCOMPL 05/30/2018 FAIZA JUAREZ DO T Ot I25.2 OLD MYOCARDIAL INFARCTION 05/30/2018 FAIZA JUAREZ DO T Ot I48.91 UNSPECIFIED ATRIAL FIBRILLATION 05/30/2018 FAIZA JUAREZ DO Ot J44.9 CHRONIC OBSTRUCTIVE PULMONARY DISEASE, U 05/30/2018 FAIZA JUAREZ DO Ot R06.00 DYSPNEA, UNSPECIFIED 05/30/2018 FAIZA JUAREZ DO T Ot R06.02 SHORTNESS OF BREATH 05/30/2018 FAIZA JUAREZ DO T Ot R79.89 OTHER SPECIFIED ABNORMAL FINDINGS OF BLO 05/30/2018 FAIZA JUAREZ DO T Ot 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 05/30/2018 FAIZA JUAREZ DO T Ot Z88.5 ALLERGY STATUS TO NARCOTIC AGENT STATUS 05/30/2018 FAIZA JUAREZ DO Ot Z88.8 ALLERGY STATUS TO OTH DRUG/MEDS/BIOL SUB 05/30/2018 FAIZA JUAREZ DO T Ot Z91.041 RADIOGRAPHIC DYE ALLERGY STATUS 05/30/2018 FAIZA JUAREZ DO T Ot Z91.048 OTHER NONMEDICINAL SUBSTANCE ALLERGY STA 05/30/2018 FAIZA JUAREZ DO Ot Z95.810 PRESENCE OF AUTOMATIC (IMPLANTABLE) CARD 05/30/2018 FAIZA JUAREZ DO Ot Z99.81 DEPENDENCE ON SUPPLEMENTAL OXYGEN 05/31/2018 GANGA HALL MD Ot E11.9 TYPE 2 DIABETES MELLITUS WITHOUT COMPLIC 05/31/2018 GANGA HALL MD Ot F17.210 NICOTINE DEPENDENCE, CIGARETTES, UNCOMPL 05/31/2018 GANGA HALL MD Ot I25.2 OLD MYOCARDIAL INFARCTION 05/31/2018 GANGA HALL MD Ot I48.91 UNSPECIFIED ATRIAL FIBRILLATION 05/31/2018 GANGA HALL MD Ot J44.9 CHRONIC OBSTRUCTIVE PULMONARY DISEASE, U 05/31/2018 GANGA HALL MD Ot R06.02 SHORTNESS OF BREATH 05/31/2018 GANGA HALL MD Ot Z79.01 LONG-TERM (CURRENT) USE OF ANTICOAGULANT 05/31/2018 GANGA HALL MD Ot 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 05/31/2018 GANGA HALL MD Ot Z88.5 ALLERGY STATUS TO NARCOTIC AGENT STATUS 05/31/2018 GANGA HALL MD Ot Z88.8 ALLERGY STATUS TO OTH DRUG/MEDS/BIOL SUB 05/31/2018 GANGA HALL MD Ot Z91.041 RADIOGRAPHIC DYE ALLERGY STATUS 05/31/2018 GANGA HALL MD Ot Z91.048 OTHER NONMEDICINAL SUBSTANCE ALLERGY STA 05/31/2018 GANGA HALL MD Ot Z95.0 PRESENCE OF CARDIAC PACEMAKER 05/31/2018 GANGA HALL MD Ot Z95.810 PRESENCE OF AUTOMATIC (IMPLANTABLE) CARD 05/31/2018 GANGA HALL MD Ot Z99.81 DEPENDENCE ON SUPPLEMENTAL OXYGEN 06/02/2018 ANJEL JUAREZ DOED T Ot E11.9 TYPE 2 DIABETES MELLITUS WITHOUT COMPLIC 06/02/2018 FAIZA JUAREZ DO T Ot F17.210 NICOTINE DEPENDENCE, CIGARETTES, UNCOMPL 06/02/2018 FAIZA JUAREZ DO T Ot I25.2 OLD MYOCARDIAL INFARCTION 06/02/2018 FAIZA JUAREZ DO T Ot I48.91 UNSPECIFIED ATRIAL FIBRILLATION 06/02/2018 FAIZA JUAREZ DO T Ot J44.9 CHRONIC OBSTRUCTIVE PULMONARY DISEASE, U 06/02/2018 FAIZA JUAREZ DO T Ot R06.00 DYSPNEA, UNSPECIFIED 06/02/2018 ANJEL JUAREZ DOED T Ot R06.02 SHORTNESS OF BREATH 06/02/2018 ANJEL JUAREZ DOED T Ot R79.89 OTHER SPECIFIED ABNORMAL FINDINGS OF BLO 06/02/2018 FAIZA JUAREZ DO T Ot 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 06/02/2018 FAIZA JUAREZ DO T Ot Z88.5 ALLERGY STATUS TO NARCOTIC AGENT STATUS 06/02/2018 FAIZA JUAREZ DO T Ot Z88.8 ALLERGY STATUS TO OTH DRUG/MEDS/BIOL SUB 06/02/2018 ANJEL JUAREZ DOED T Ot Z91.041 RADIOGRAPHIC DYE ALLERGY STATUS 06/02/2018 ANJEL JUAREZ DOED T Ot Z91.048 OTHER NONMEDICINAL SUBSTANCE ALLERGY STA 06/02/2018 FAIZA JUAREZ DO T Ot Z95.810 PRESENCE OF AUTOMATIC (IMPLANTABLE) CARD 06/02/2018 ANJEL JUAREZ DOED T Ot Z99.81 DEPENDENCE ON SUPPLEMENTAL OXYGEN 06/02/2018 GANGA HALL MD Ot E11.9 TYPE 2 DIABETES MELLITUS WITHOUT COMPLIC 06/02/2018 GANGA HALL MD Ot F17.210 NICOTINE DEPENDENCE, CIGARETTES, UNCOMPL 06/02/2018 GANGA HALL MD Ot I25.2 OLD MYOCARDIAL INFARCTION 06/02/2018 GANGA HALL MD Ot I48.91 UNSPECIFIED ATRIAL FIBRILLATION 06/02/2018 GANGA HALL MD, Ot J44.9 CHRONIC OBSTRUCTIVE PULMONARY DISEASE, U 06/02/2018 GANGA HALL MD Ot R06.02 SHORTNESS OF BREATH 06/02/2018 GANGA HALL MD Ot Z79.01 LONG-TERM (CURRENT) USE OF ANTICOAGULANT 06/02/2018 GANGA HALL MD Ot 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 06/02/2018 GANGA HALL MD Ot Z88.5 ALLERGY STATUS TO NARCOTIC AGENT STATUS 06/02/2018 GANGA HALL MD, Ot Z88.8 ALLERGY STATUS TO OTH DRUG/MEDS/BIOL SUB 06/02/2018 GANGA HALL MD Ot Z91.041 RADIOGRAPHIC DYE ALLERGY STATUS 06/02/2018 GANGA HALL MD Ot Z91.048 OTHER NONMEDICINAL SUBSTANCE ALLERGY STA 06/02/2018 GANGA HALL MD Ot Z95.0 PRESENCE OF CARDIAC PACEMAKER 06/02/2018 GANGA HALL MD Ot Z95.810 PRESENCE OF AUTOMATIC (IMPLANTABLE) CARD 06/02/2018 GANGA HALL MD Ot Z99.81 DEPENDENCE ON SUPPLEMENTAL OXYGEN 06/23/2018 KEYSHAWN LANDA DO Ot E11.9 TYPE 2 DIABETES MELLITUS WITHOUT COMPLIC 06/23/2018 KEYSHAWN LANDA DO, Ot I25.2 OLD MYOCARDIAL INFARCTION 06/23/2018 KEYSHAWN LANDA DO Ot I48.91 UNSPECIFIED ATRIAL FIBRILLATION 06/23/2018 KEYSHAWN LANDA DO Ot I49.3 VENTRICULAR PREMATURE DEPOLARIZATION 06/23/2018 KEYSHAWN LANDA DO Ot I50.9 HEART FAILURE, UNSPECIFIED 06/23/2018 KEYSHAWN LANDA DO, Ot J44.9 CHRONIC OBSTRUCTIVE PULMONARY DISEASE, U 06/23/2018 KEYSHAWN LANDA DO Ot J96.11 CHRONIC RESPIRATORY FAILURE WITH HYPOXIA 06/23/2018 KEYSHAWN LANDA DO Ot R00.2 PALPITATIONS 06/23/2018 KEYSHAWN LANDA DO, Ot R06.02 SHORTNESS OF BREATH 06/23/2018 KEYSHAWN LANDA DO Ot Z77.22 CNTCT W AND EXPSR TO ENVIRON TOBACCO SMO 06/23/2018 KEYSHAWN LANDA DO, Ot 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 Results Test Result Range Complete blood count (CBC) with automated white blood cell (WBC) differential - 03/31/18 22:32 Blood leukocytes automated count (number/volume) 11.3 10*3/uL 4.3-11.0 Blood erythrocytes automated count (number/volume) 4.90 10*6/uL 4.35-5.85 Venous blood hemoglobin measurement (mass/volume) 12.7 g/dL 11.5-16.0 Blood hematocrit (volume fraction) 41 % 35-52 Automated erythrocyte mean corpuscular volume 84 [foz_us] 80-99 Automated erythrocyte mean corpuscular hemoglobin (mass per erythrocyte) 26 pg 25-34 Automated erythrocyte mean corpuscular hemoglobin concentration measurement (mass/volume) 31 g/dL 32-36 Automated erythrocyte distribution width ratio 15.3 % 10.0- 14.5 Automated blood platelet count (count/volume) 164 10*3/uL 130-400 Automated blood platelet mean volume measurement 10.6 [foz_us] 7.4-10.4 Automated blood neutrophils/100 leukocytes 68 % 42-75 Automated blood lymphocytes/100 leukocytes 23 % 12-44 Blood monocytes/100 leukocytes 8 % 0-12 Automated blood eosinophils/100 leukocytes 1 % 0-10 Automated blood basophils/100 leukocytes 0 % 0-10 Blood neutrophils automated count (number/volume) 7.7 10*3 1.8-7.8 Blood lymphocytes automated count (number/volume) 2.6 10*3 1.0-4.0 Blood monocytes automated count (number/volume) 0.9 10*3 0.0- 1.0 Automated eosinophil count 0.1 10*3/uL 0.0-0.3 Automated blood basophil count (count/volume) 0.0 10*3/uL 0.0-0.1 Comprehensive metabolic panel - 03/31/18 23:30 Serum or plasma sodium measurement (moles/volume) 138 mmol/L 135-145 Serum or plasma potassium measurement (moles/volume) 4.0 mmol/L 3.6-5.0 Serum or plasma chloride measurement (moles/volume) 101 mmol/L 98-107 Carbon dioxide 22 mmol/L 21-32 Serum or plasma anion gap determination (moles/volume) 15 mmol/L 5-14 Serum or plasma urea nitrogen measurement (mass/volume) 14 mg/dL 7-18 Serum or plasma creatinine measurement (mass/volume) 1.00 mg/dL 0.60-1.30 Serum or plasma urea nitrogen/creatinine mass ratio 14 NRG Serum or plasma creatinine measurement with calculation of estimated glomerular filtration rate > NRG Serum or plasma glucose measurement (mass/volume) 137 mg/dL 70-105 Serum or plasma calcium measurement (mass/volume) 9.2 mg/dL 8.5-10.1 Serum or plasma total bilirubin measurement (mass/volume) 0.2 mg/dL 0.1-1.0 Serum or plasma alkaline phosphatase measurement (enzymatic activity/volume) 125 U/L 40-136 Serum or plasma aspartate aminotransferase measurement (enzymatic activity/volume) 12 U/L 5-34 Serum or plasma alanine aminotransferase measurement (enzymatic activity/volume) 10 U/L 0-55 Serum or plasma protein measurement (mass/volume) 6.4 g/dL 6.4-8.2 Serum or plasma albumin measurement (mass/volume) 3.8 g/dL 3.2-4.5 CALCIUM CORRECTED 9.4 mg/dL 8.5-10.1 Magnesium - 03/31/18 23:30 Magnesium 1.7 mg/dL 1.8-2.4 TROPONIN T - 03/31/18 23:30 TROPONIN T 16 % <=10 Serum or plasma lithium measurement (moles/volume) - 03/31/18 23:30 BNP level 521.1 pg/mL <100.0 Complete urinalysis with reflex to culture - 04/01/18 00:00 Urine color determination YELLOW NRG Urine clarity determination CLEAR NRG Urine pH measurement by test strip 6.0 5-9 Specific gravity of urine by test strip 1.010 1.016-1.022 Urine protein assay by test strip, semi-quantitative NEGATIVE NEGATIVE Urine glucose detection by automated test strip NEGATIVE NEGATIVE Erythrocytes detection in urine sediment by light microscopy NEGATIVE NEGATIVE Urine ketones detection by automated test strip NEGATIVE NEGATIVE Urine nitrite detection by test strip NEGATIVE NEGATIVE Urine total bilirubin detection by test strip NEGATIVE NEGATIVE Urine urobilinogen measurement by automated test strip (mass/volume) 0.2 mg/dL NORMAL Urine leukocyte esterase detection by dipstick NEGATIVE NEGATIVE Automated urine sediment erythrocyte count by microscopy (number/high power field) NONE NRG Automated urine sediment leukocyte count by microscopy (number/high power field) [HPF] NRG Bacteria detection in urine sediment by light microscopy NEGATIVE NRG Squamous epithelial cells detection in urine sediment by light microscopy 0-2 NRG Crystals detection in urine sediment by light microscopy NONE NRG Casts detection in urine sediment by light microscopy NONE NRG Mucus detection in urine sediment by light microscopy MODERATE NRG Complete urinalysis with reflex to culture NO NRG Automated blood complete blood count (hemogram) panel - 04/21/18 23:40 Blood leukocytes automated count (number/volume) 9.1 10*3/uL 4.3-11.0 Blood erythrocytes automated count (number/volume) 5.11 10*6/uL 4.35-5.85 Venous blood hemoglobin measurement (mass/volume) 13.1 g/dL 11.5-16.0 Blood hematocrit (volume fraction) 42 % 35-52 Automated erythrocyte mean corpuscular volume 83 [foz_us] 80-99 Automated erythrocyte mean corpuscular hemoglobin (mass per erythrocyte) 26 pg 25-34 Automated erythrocyte mean corpuscular hemoglobin concentration measurement (mass/volume) 31 g/dL 32-36 Automated erythrocyte distribution width ratio 15.9 % 10.0- 14.5 Automated blood platelet count (count/volume) 287 10*3/uL 130-400 Automated blood platelet mean volume measurement 9.7 [foz_us] 7.4-10.4 Comprehensive metabolic panel - 04/21/18 23:40 Serum or plasma sodium measurement (moles/volume) 140 mmol/L 135-145 Serum or plasma potassium measurement (moles/volume) 3.8 mmol/L 3.6-5.0 Serum or plasma chloride measurement (moles/volume) 99 mmol/L 98-107 Carbon dioxide 23 mmol/L 21-32 Serum or plasma anion gap determination (moles/volume) 18 mmol/L 5-14 Serum or plasma urea nitrogen measurement (mass/volume) 20 mg/dL 7-18 Serum or plasma creatinine measurement (mass/volume) 1.39 mg/dL 0.60-1.30 Serum or plasma urea nitrogen/creatinine mass ratio 14 NRG Serum or plasma creatinine measurement with calculation of estimated glomerular filtration rate 46 NRG Serum or plasma glucose measurement (mass/volume) 86 mg/dL 70-105 Serum or plasma calcium measurement (mass/volume) 10.1 mg/dL 8.5-10.1 Serum or plasma total bilirubin measurement (mass/volume) 0.3 mg/dL 0.1-1.0 Serum or plasma alkaline phosphatase measurement (enzymatic activity/volume) 106 U/L 40-136 Serum or plasma aspartate aminotransferase measurement (enzymatic activity/volume) 13 U/L 5-34 Serum or plasma alanine aminotransferase measurement (enzymatic activity/volume) 11 U/L 0-55 Serum or plasma protein measurement (mass/volume) 7.0 g/dL 6.4-8.2 Serum or plasma albumin measurement (mass/volume) 4.3 g/dL 3.2-4.5 CALCIUM CORRECTED 9.9 mg/dL 8.5-10.1 Magnesium - 04/21/18 23:40 Magnesium 1.8 mg/dL 1.8-2.4 TROPONIN T - 04/21/18 23:40 TROPONIN T 21 % <=10 PROBNP FS - 04/21/18 23:40 PROBNP FS 601.4 pg/mL <75.0 PT panel in platelet poor plasma by coagulation assay - 04/21/18 23:40 Prothrombin time (PT) in platelet poor plasma by coagulation assay 14.4 s 12.2-14.7 INR in platelet poor plasma or blood by coagulation assay 1.1 0.8-1.4 Activated partial thromboplastin time (aPTT) in platelet poor plasma bycoagulation assay - 04/21/18 23:40 Activated partial thromboplastin time (aPTT) in platelet poor plasma bycoagulation assay 30 s 24-35 Complete blood count (CBC) with automated white blood cell (WBC) differential - 05/30/18 14:55 Blood leukocytes automated count (number/volume) 6.6 10*3/uL 4.3-11.0 Blood erythrocytes automated count (number/volume) 4.51 10*6/uL 4.35-5.85 Venous blood hemoglobin measurement (mass/volume) 11.7 g/dL 11.5-16.0 Blood hematocrit (volume fraction) 37 % 35-52 Automated erythrocyte mean corpuscular volume 83 [foz_us] 80-99 Automated erythrocyte mean corpuscular hemoglobin (mass per erythrocyte) 26 pg 25-34 Automated erythrocyte mean corpuscular hemoglobin concentration measurement (mass/volume) 31 g/dL 32-36 Automated erythrocyte distribution width ratio 14.4 % 10.0- 14.5 Automated blood platelet count (count/volume) 232 10*3/uL 130-400 Automated blood platelet mean volume measurement 9.5 [foz_us] 7.4-10.4 Automated blood neutrophils/100 leukocytes 52 % 42-75 Automated blood lymphocytes/100 leukocytes 32 % 12-44 Blood monocytes/100 leukocytes 14 % 0-12 Automated blood eosinophils/100 leukocytes 1 % 0-10 Automated blood basophils/100 leukocytes 1 % 0-10 Blood neutrophils automated count (number/volume) 3.4 10*3 1.8-7.8 Blood lymphocytes automated count (number/volume) 2.1 10*3 1.0-4.0 Blood monocytes automated count (number/volume) 0.9 10*3 0.0- 1.0 Automated eosinophil count 0.1 10*3/uL 0.0-0.3 Automated blood basophil count (count/volume) 0.1 10*3/uL 0.0-0.1 PT panel in platelet poor plasma by coagulation assay - 05/30/18 14:55 Prothrombin time (PT) in platelet poor plasma by coagulation assay 15.0 s 12.2-14.7 INR in platelet poor plasma or blood by coagulation assay 1.1 0.8-1.4 Activated partial thromboplastin time (aPTT) in platelet poor plasma bycoagulation assay - 05/30/18 14:55 Activated partial thromboplastin time (aPTT) in platelet poor plasma bycoagulation assay 34 s 24-35 TROPONIN T - 05/30/18 14:55 TROPONIN T 15 % <=10 PROBNP FS - 05/30/18 14:55 PROBNP FS 332.3 pg/mL <75.0 Comprehensive metabolic panel - 05/30/18 14:55 Serum or plasma sodium measurement (moles/volume) 137 mmol/L 135-145 Serum or plasma potassium measurement (moles/volume) 3.8 mmol/L 3.6-5.0 Serum or plasma chloride measurement (moles/volume) 98 mmol/L 98-107 Carbon dioxide 27 mmol/L 21-32 Serum or plasma anion gap determination (moles/volume) 12 mmol/L 5-14 Serum or plasma urea nitrogen measurement (mass/volume) 16 mg/dL 7-18 Serum or plasma creatinine measurement (mass/volume) 0.96 mg/dL 0.60-1.30 Serum or plasma urea nitrogen/creatinine mass ratio 17 NRG Serum or plasma creatinine measurement with calculation of estimated glomerular filtration rate > NRG Serum or plasma glucose measurement (mass/volume) 109 mg/dL 70-105 Serum or plasma calcium measurement (mass/volume) 10.1 mg/dL 8.5-10.1 Serum or plasma total bilirubin measurement (mass/volume) 0.5 mg/dL 0.1-1.0 Serum or plasma alkaline phosphatase measurement (enzymatic activity/volume) 153 U/L 40-136 Serum or plasma aspartate aminotransferase measurement (enzymatic activity/volume) 15 U/L 5-34 Serum or plasma alanine aminotransferase measurement (enzymatic activity/volume) 10 U/L 0-55 Serum or plasma protein measurement (mass/volume) 7.0 g/dL 6.4-8.2 Serum or plasma albumin measurement (mass/volume) 4.2 g/dL 3.2-4.5 CALCIUM CORRECTED 9.9 mg/dL 8.5-10.1 Comprehensive metabolic panel - 05/31/18 19:47 Serum or plasma sodium measurement (moles/volume) 138 mmol/L 135-145 Serum or plasma potassium measurement (moles/volume) 5.8 mmol/L 3.6-5.0 Serum or plasma chloride measurement (moles/volume) 100 mmol/L 98-107 Carbon dioxide 27 mmol/L 21-32 Serum or plasma anion gap determination (moles/volume) 11 mmol/L 5-14 Serum or plasma urea nitrogen measurement (mass/volume) 14 mg/dL 7-18 Serum or plasma creatinine measurement (mass/volume) 0.98 mg/dL 0.60-1.30 Serum or plasma urea nitrogen/creatinine mass ratio 14 NRG Serum or plasma creatinine measurement with calculation of estimated glomerular filtration rate > NRG Serum or plasma glucose measurement (mass/volume) 111 mg/dL 70-105 Serum or plasma calcium measurement (mass/volume) 9.6 mg/dL 8.5-10.1 Serum or plasma total bilirubin measurement (mass/volume) 0.3 mg/dL 0.1-1.0 Serum or plasma alkaline phosphatase measurement (enzymatic activity/volume) 157 U/L 40-136 Serum or plasma aspartate aminotransferase measurement (enzymatic activity/volume) 38 U/L 5-34 Serum or plasma alanine aminotransferase measurement (enzymatic activity/volume) 12 U/L 0-55 Serum or plasma protein measurement (mass/volume) 6.9 g/dL 6.4-8.2 Serum or plasma albumin measurement (mass/volume) 4.3 g/dL 3.2-4.5 CALCIUM CORRECTED 9.4 mg/dL 8.5-10.1 PROBNP FS - 05/31/18 19:47 PROBNP FS 409.1 pg/mL <75.0 Complete blood count (CBC) with automated white blood cell (WBC) differential - 06/21/18 10:03 Blood leukocytes automated count (number/volume) 9.1 10*3/uL 4.3-11.0 Blood erythrocytes automated count (number/volume) 4.26 10*6/uL 4.35-5.85 Venous blood hemoglobin measurement (mass/volume) 11.2 g/dL 11.5-16.0 Blood hematocrit (volume fraction) 37 % 35-52 Automated erythrocyte mean corpuscular volume 88 [foz_us] 80-99 Automated erythrocyte mean corpuscular hemoglobin (mass per erythrocyte) 26 pg 25-34 Automated erythrocyte mean corpuscular hemoglobin concentration measurement (mass/volume) 30 g/dL 32-36 Automated erythrocyte distribution width ratio 14.8 % 10.0- 14.5 Automated blood platelet count (count/volume) 238 10*3/uL 130-400 Automated blood platelet mean volume measurement 9.9 [foz_us] 7.4-10.4 Automated blood neutrophils/100 leukocytes 55 % 42-75 Automated blood lymphocytes/100 leukocytes 33 % 12-44 Blood monocytes/100 leukocytes 10 % 0-12 Automated blood eosinophils/100 leukocytes 1 % 0-10 Automated blood basophils/100 leukocytes 0 % 0-10 Blood neutrophils automated count (number/volume) 5.0 10*3 1.8-7.8 Blood lymphocytes automated count (number/volume) 3.0 10*3 1.0-4.0 Blood monocytes automated count (number/volume) 0.9 10*3 0.0- 1.0 Automated eosinophil count 0.1 10*3/uL 0.0-0.3 Automated blood basophil count (count/volume) 0.0 10*3/uL 0.0-0.1 Comprehensive metabolic panel - 06/21/18 10:03 Serum or plasma sodium measurement (moles/volume) 144 mmol/L 135-145 Serum or plasma potassium measurement (moles/volume) 3.8 mmol/L 3.6-5.0 Serum or plasma chloride measurement (moles/volume) 108 mmol/L 98-107 Carbon dioxide 24 mmol/L 21-32 Serum or plasma anion gap determination (moles/volume) 12 mmol/L 5-14 Serum or plasma urea nitrogen measurement (mass/volume) 18 mg/dL 7-18 Serum or plasma creatinine measurement (mass/volume) 0.94 mg/dL 0.60-1.30 Serum or plasma urea nitrogen/creatinine mass ratio 19 NRG Serum or plasma creatinine measurement with calculation of estimated glomerular filtration rate > NRG Serum or plasma glucose measurement (mass/volume) 120 mg/dL 70-105 Serum or plasma calcium measurement (mass/volume) 9.2 mg/dL 8.5-10.1 Serum or plasma total bilirubin measurement (mass/volume) 0.2 mg/dL 0.1-1.0 Serum or plasma alkaline phosphatase measurement (enzymatic activity/volume) 142 U/L 40-136 Serum or plasma aspartate aminotransferase measurement (enzymatic activity/volume) 11 U/L 5-34 Serum or plasma alanine aminotransferase measurement (enzymatic activity/volume) 10 U/L 0-55 Serum or plasma protein measurement (mass/volume) 6.3 g/dL 6.4-8.2 Serum or plasma albumin measurement (mass/volume) 3.8 g/dL 3.2-4.5 CALCIUM CORRECTED 9.4 mg/dL 8.5-10.1 TROPONIN T - 06/21/18 10:03 TROPONIN T 15 % <=10 PROBNP FS - 06/21/18 10:03 PROBNP FS 1282.0 pg/mL <75.0 THYROID STIMULATING HORMONE - 06/21/18 10:03 THYROID STIMULATING HORMONE 2.07 u[iU]/mL 0.35-4.94 Encounters ACCT No. Visit Date/Time Discharge Status Pt. Type Provider Facility Loc./Unit Complaint [id number] 06/17/2018 15:20:00 06/17/2018 23:59:59 CLS Outpatient [facility] [id number] 06/21/2018 09:04:00 06/21/2018 13:20:00 DIS Outpatient KEYSHAWN LANDA DO [facility] ER FS SOB [id number] 05/31/2018 18:55:00 05/31/2018 20:34:00 DIS Emergency ISABEL SARGENT, GANGA Olivia [facility] ER FS SOB [id number] 05/30/2018 13:21:00 05/30/2018 17:05:00 DIS Emergency FAIZA JUAREZ DO [facility] ER FS SOB [id number] 04/21/2018 22:00:00 04/22/2018 01:10:00 DIS Emergency FAIZA JUAREZ DO [facility] ER FS CP [id number] 04/14/2018 14:19:00 04/14/2018 14:50:00 DIS Emergency KEYSHAWN LANDA DO [facility] ER FS RT LEG PAIN [id number] 04/14/2018 14:19:00 04/14/2018 14:19:00 CAN Preadmit KEYSHAWN LANDA DO [facility] ER FS RT STUMP PAIN [id number] 04/11/2018 12:35:00 04/11/2018 14:14:00 DIS Emergency ASIM AKBAR MD [facility] ER FS RT LEG PAIN [id number] 03/31/2018 22:29:00 04/01/2018 03:25:00 DIS Emergency MAGED RODGERS DO [facility] ER FS SOA
[2018-07-08] MEDS ORDERED: ONDA4TAB11 PO (00:44)
[2018-07-08] MEDS ORDERED: LORA1TAB PO (00:44)
[2018-07-08] MEDS ORDERED: ALBU2.5V4 INH (00:44)
[2018-07-08] MEDS ORDERED: ESCI10TA55 PO (00:44)
[2018-07-08] MEDS ORDERED: ACYC400T PO (00:44)
[2018-07-08] MEDS ORDERED: DOCU100C37 PO (00:44)
[2018-07-08] MEDS ORDERED: TORS20TA3 PO (00:44)
[2018-07-08] MEDS ORDERED: SENN-141 PO (00:44)
[2018-07-08] MEDS ORDERED: METF500T8 PO (00:44)
[2018-07-08] MEDS ORDERED: RANI-515 PO (00:44)
[2018-07-08] MEDS ORDERED: NITR0.4T42 SL (00:44)
[2018-07-08] MEDS ORDERED: METO-395 PO (00:44)
[2018-07-08] MEDS ORDERED: OXYC-465 PO (00:44)
[2018-07-08] MEDS ORDERED: LEVO25TA5 PO (00:44)
[2018-07-08] MEDS ORDERED: PROM5SYR PO (00:44)
[2018-07-08] MEDS ORDERED: APIX5TAB4 PO (00:44)
[2018-07-08] MEDS ORDERED: HYDR-3924 PO (00:44)
[2018-07-08] MEDS ORDERED: CHOL10003 PO (00:44)
[2018-07-08] MEDS ORDERED: ISOS30TA3 PO (00:44)
[2018-07-08] MEDS ORDERED: SACU1TAB7 PO (00:44)
[2018-07-08] MEDS ORDERED: OMEG-160 PO (00:44)
[2018-07-08] MEDS ORDERED: FLUT1AER IH (00:44)
[2018-07-08] MEDS ORDERED: ATOR40TA70 PO (00:44)
[2018-07-08] MEDS ORDERED: TIOT18CA2 IH (00:44)
[2018-07-08] MEDS ORDERED: GUAI400T71 PO (00:44)
[2018-07-08] MEDS ORDERED: ASPI-999 PO (00:44)
[2018-07-08] MEDS ORDERED: SPIR25TA5 PO (00:44)
[2018-07-08] MEDS ORDERED: IPRA3AMP31 IH (00:44)
[2018-07-08] MEDS ORDERED: FUROSEMIDE 40 MG/4 ML INJ (LASIX) IVP STA (00:57)
[2018-07-08] MEDS ORDERED: ONDANSETRON 4 MG/2 ML (SDV) Z0FRAN IVP STA (00:57)
[2018-07-08] MEDS ORDERED: fentaNYL INJECTION 100 MCG/2 ML AMP IVP ONE (01:00)
[2018-07-08 01:13] LABS: HEMATOCRIT 42 % (35-52); HEMOGLOBIN 12.3 G/DL (11.5-16.0); MEAN CORPUSCULAR HEMOGLOBIN 25 PG (25-34); MEAN CORPUSCULAR HGB CONC 30 G/DL (32-36); MEAN CORPUSCULAR VOLUME 86 FL (80-99); PLATELET COUNT 214 10^3/uL (130-400); RED CELL DISTRIBUTION WIDTH 14.6 % (10.0-14.5); WHITE BLOOD COUNT 6.9 10^3/uL (4.3-11.0)
[2018-07-08 01:14] LABS: BASOPHILS % (AUTO) 0 % (0-10); EOSINOPHILS % (AUTO) 0 % (0-10); LYMPHOCYTES # (AUTO) 1.8 X 10^3 (1.0-4.0); LYMPHOCYTES % (AUTO) 26 % (12-44); MONOCYTES # (AUTO) 0.2 X 10^3 (0.0-1.0); MONOCYTES % (AUTO) 3 % (0-12); NEUTROPHILS # (AUTO) 4.9 X 10^3 (1.8-7.8); NEUTROPHILS % (AUTO) 71 % (42-75)
[2018-07-08 01:37] LABS: BILIRUBIN,TOTAL 0.3 MG/DL (0.1-1.0); CALCIUM 9.7 MG/DL (8.5-10.1); CREATININE SERUM 1.18 MG/DL (0.60-1.30); MAGNESIUM 1.7 MG/DL (1.8-2.4); POTASSIUM 4.6 MMOL/L (3.6-5.0)
[2018-07-08 01:38] LABS: ALBUMIN 4.4 GM/DL (3.2-4.5); TOTAL PROTEIN 7.1 GM/DL (6.4-8.2)
--- NOTE | 2018-07-08 01:48 | NUR ---
PATIENT AWAKE AND ALERT. PATIENT DENIES ANY INCREASED SHORTNESS OF BREATH AT THIS TIME. PATIENT ASSISTED UP TO BEDSIDE COMMODE.
[2018-07-08 02:36] VITALS: BP 146/80
--- NOTE | 2018-07-08 07:10 | Diagnostic Imaging Report ---
EXAMINATION: Chest radiograph, portable AP view. DATE: July 08, 2018 at 0047 hours. INDICATION: 52-year-old female, shortness of breath. COMPARISON: June 21, 2018. FINDINGS: There is a left-sided cardiac assist device with leads. Stable overall appearance of the cardiomediastinal silhouette. There is no identified pneumothorax. There is no large pleural effusion. Streaky opacities in the right lower lobe appear unchanged. There is no identified new focal airspace consolidation. IMPRESSION: 1. No radiographic apparent interval acute cardiopulmonary abnormality. 2. Persistent and unchanged streaky opacities in the right lung base. Dictated by: Dictated on workstation # [id number]
[2018-07-09] MEDS ORDERED: BENZ100C18 PO (00:16)
[2018-07-09] MEDS ORDERED: CEFD300C3 PO (00:16)
[2018-07-09] MEDS ORDERED: PRED5TAB PO (00:16)
[2018-07-09] MEDS ORDERED: GUAI1TBM19 PO (00:16)
[2018-07-09] MEDS ORDERED: AZIT500T PO (00:16)
== END 2018-07-08 02:38 | disposition home or self-care (01) ==
LOC: ER FS 23:43 → MERGE 23:43 → ER FS 07-08 02:38
DX: I50.9 Heart failure, unspecified (principal); J44.1 Chronic obstructive pulmonary disease with (acute) exacerbation; Z79.01 Long term (current) use of anticoagulants; Z79.82 Long term (current) use of aspirin; Z79.51 Long term (current) use of inhaled steroids; Z79.84 Long term (current) use of oral hypoglycemic drugs
CPT/HCPCS: 36415; 71045; 80053; 83735; 83880; 85025; 93005; 96374; 96375

== ENCOUNTER 2018-07-08 22:25 | Emergency (ER) | payer MEDICARE, MEDICAID ==
[~2018-07-08] VITALS: Ht 170.2 cm; Wt 81.6 kg
[~2018-07-08 22:25] MED LIST changes: +ACYC400T PO; +ALBU2.5V4 INH; +APIX5TAB4 PO; +ASPI-999 PO; +ATOR40TA70 PO; +CHOL10003 PO; +DOCU100C37 PO; +ESCI10TA55 PO; +FLUT1AER IH; +GUAI400T71 PO; +HYDR-3924 PO; +IPRA3AMP31 IH; +ISOS30TA3 PO; +LEVO25TA5 PO; +LORA1TAB PO; +METF500T8 PO; +METO-395 PO; +NITR0.4T42 SL; +OMEG-160 PO; +ONDA4TAB11 PO; +OXYC-465 PO; +PROM5SYR PO; +RANI-515 PO; +SACU1TAB7 PO; +SENN-141 PO; +SPIR25TA5 PO; +TIOT18CA2 IH; +TORS20TA3 PO
--- NOTE | 2018-07-08 22:31 | NUR ---
pt here with " care information associate". pt alert gcs 15. pt relates being in [facility] for same c/o here which is dyspnea. pt appears anxious. resp shallow nonlabored. no other acute sighns of dyspnea noted. pt quite talkative and directiv towards cares. no duskiness and cyanosis or accessory muscle use noted. pt relates being on o2 3/n/c 24/7 but did not come in with any. r/a p ox [address] no o2 so far. someone doing tele and ekg. pt denies chest and abd pain. denies n/v/d. pt only pain c/o is back and right leg pain which is chronic in nature she says. pt is r bka. bp machine is 137/92 tele shows sr 86. lungs cta with decreased aeration bilaterally. abd soft nondistended nonsprcific tenderness with palpation. done linh pt at [id number].
--- OUTSIDE RECORDS SUMMARY | 2018-07-08 22:45 | XMS REPORT ---
Author Author Jimbo Christianson Organization [facility] Address [address] [place] [address] Care Team Providers Care Ct Technician Name Role Phone Jimbo Christianson Unavailable PROBLEMS Type Condition ICD9-CM Code NVT99-ZT Code Onset Dates Condition Status SNOMED Code Problem Chronic apical periodontitis K04.5 Active 8105145 Problem Nicotine use disorder F17.200 Active 412939414 Problem Bipolar disorder, current episode mixed, unspecified F31.60 Active 89351166 Problem 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 F41.1 Active 05559515 Problem Gingivitis K05.10 Active 50059424 ALLERGIES Substance Reaction Event Type Date Status morphine Unknown Drug Allergy June, Active Iodine Unknown Drug Allergy June, Active Adhesive Tape Rash Non Drug Allergy June, Active ENCOUNTERS Encounter Location Date Diagnosis [facility] [address] [place] [id number] [place] [phone] Sep, [facility] [address] [place] [address] June, 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 F41.1 [facility] [address] [place] [id number] [place] [address] Mar, 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 F41.1 and Nicotine use disorder F17.200 [facility] [address] [place] [id number] [place] [address] Dec, 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 F41.1 [facility] [address] [place] [address] Sep, 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 F41.1 [facility] [address] [place] [id number] [place] [address] June, 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 F41.1 [employer] [address] [place] [address] June, [facility] [address] [place] [address] [place] [address] Mar, 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 F41.[address] [facility] [address] [place] [address] Mar, [facility] [address] [place] [address] Dec, 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 F41.[address] [facility] [address] [place] [phone] Oct, Dental [address] [place] [id number] Oct, Encounter for dental examination Z01.20 ; Dental caries extending into dentin K02.62 ; Chronic apical periodontitis K04.5 ; Periodontosis K05.4 and Gingivitis K05.10 Outpatient Adult [address] [place] [address] Oct, [facility] [address] [place] [address] Sep, 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 F41.1 Outpatient Adult [address] [place] [address] May, [facility] [address] [place] [address] May, Bipolar disorder, current episode mixed, unspecified F31.60 [facility] [address] [place] [address] Feb, [facility] [address] [place] [address] Jan, Bipolar disorder, current episode mixed, unspecified F31.60 Outpatient Adult [address] [place] [address] Jan, Bipolar disorder, current episode mixed, unspecified F31.60 Outpatient Adult [address] [place] [address] Dec, Bipolar disorder, current episode mixed, unspecified F31.60 Outpatient Adult [address] [place] [address] Nov, Bipolar disorder, current episode mixed, unspecified F31.60 [facility] [address] [place] [phone] Nov, [facility] [address] [place] [id number] [place] [address] Oct, Bipolar disorder, current episode mixed, unspecified F31.60 Outpatient Adult [address] [place] [address] Oct, Bipolar disorder, current episode mixed, unspecified F31.60 Outpatient Adult [address] [place] [address] Sep, Bipolar disorder, current episode mixed, unspecified F31.60 [facility] [address] [place] [id number] [place] [address] Apr, Bipolar disorder, current episode mixed, unspecified F31.60 [facility] [address] [place] [address] Apr, [facility] [address] [place] [address] Apr, [facility] [address] [place] [address] Apr, Bipolar disorder, current episode mixed, unspecified F31.60 and Anxiety F41.9 Outpatient Adult [address] [place] [address] Apr, Bipolar disorder, current episode mixed, unspecified F31.60 and Post-traumatic stress disorder, chronic F43.12 Outpatient Adult [address] [place] [address] Feb, Bipolar disorder, current episode mixed, unspecified F31.60 and Post-traumatic stress disorder, chronic F43.12 Outpatient Adult [address] [place] [address] Sep, Bipolar affective, mixed 296.60 and Posttraumatic stress disorder 309.81 [facility] [address] [place] [id number] [place] [address] Sep, Bipolar affective, mixed 296.60 and Anxiety disorder 300.00 [facility] [address] [place] [id number] [place] [address] Jul, Bipolar affective, mixed 296.60 and Anxiety disorder 300.00 Outpatient Adult [address] [place] [address] June, Posttraumatic stress disorder 309.81 and Bipolar affective, mixed 296.60 [facility] [address] [address] June, Outpatient Adult [address] [place] [address] June, Bipolar affective, mixed 296.60 and Posttraumatic stress disorder 309.81 [facility] [address] [address] Jan, Bipolar affective, mixed 296.60 and Posttraumatic stress disorder 309.81 [facility] [place] [id number] [place] [address] Jan, Bipolar affective, mixed 296.60 and Posttraumatic stress disorder 309.81 [facility] [address] [address] Dec, Bipolar affective, mixed 296.60 and Posttraumatic stress disorder 309.81 [facility] [address] [address] Nov, Bipolar affective, mixed 296.60 and Posttraumatic stress disorder 309.[address] [place] [address] [id number] Nov, Cardiomyopathy 425.4 ; Bipolar affective, mixed 296.60 ; COPD (chronic obstructive pulmonary disease) 496 and Chronic back pain greater than 3 months duration 724.[address] [place] [address] [id number] Oct, [facility] [address] [address] Oct, Bipolar affective, mixed 296.60 and Posttraumatic stress disorder 309.81 [facility] [address], [place] [address] Sep, Bipolar affective, mixed 296.60 and Posttraumatic stress disorder 309.81 Outpatient Adult [address] [place] [address] Sep, Bipolar affective, mixed 296.60 and Posttraumatic stress disorder 309.81 [facility] [address] [address] June, Bipolar affective, mixed 296.60 and Posttraumatic stress disorder 309.81 [facility] Psych [address], [place] [address] Apr, Bipolar affective, mixed 296.60 ; Posttraumatic stress disorder 309.81 and Insomnia, unspecified 780.52 Outpatient Adult [address] [place] [address] Dec, Bipolar affective, mixed 296.60 and Posttraumatic stress disorder 309.81 [facility] [address] [place] [address] [address] Nov, Bipolar affective, mixed 296.60 ; Posttraumatic stress disorder 309.81 ; Hypertension 401.9 ; Hyperlipidemia (Unspecified) 272.4 ; Coronary atherosclerosis due to calcified coronary lesion 414.4 ; Asthma, unspecified, unspecified status 493.90 ; Chronic pain syndrome 338.4 ; Hypothyroidism (unspecified) 244.9 ; Insomnia, unspecified 780.52 and tobacco use disorder 305.1 [facility] [address] [place] [address] [phone] Nov, [facility] [address] [place] [address] [phone] Nov, Presbyopia 367.4 [facility] [address] [place] [id number] [place] [address] Nov, [facility] [address] [place] [address] [phone] Nov, Outpatient Adult [address] [place] [address] Oct, Bipolar affective, mixed 296.60 and Posttraumatic stress disorder 309.81 [facility] [address] [place] [id number] [place] [address] Sep, Bipolar affective, mixed 296.60 ; Posttraumatic stress disorder 309.81 ; Hypertension 401.9 ; Hyperlipidemia (Unspecified) 272.4 ; Coronary atherosclerosis due to calcified coronary lesion 414.4 ; Asthma, unspecified, unspecified status 493.90 ; Chronic pain syndrome 338.4 ; Hypothyroidism (unspecified) 244.9 ; Insomnia, unspecified 780.52 and tobacco use disorder 305.1 [facility] [address] [place] [address] May, Bipolar affective, mixed 296.60 ; Posttraumatic stress disorder 309.81 ; Hypertension 401.9 ; Hyperlipidemia (Unspecified) 272.4 ; Coronary atherosclerosis due to calcified coronary lesion 414.4 ; Asthma, unspecified, unspecified status 493.90 ; Chronic pain syndrome 338.4 ; Hypothyroidism (unspecified) 244.9 ; Insomnia, unspecified 780.52 ; tobacco use disorder 305.1 and Bipolar I disorder, most re cent episode (or current) mixed, unspecified 296.60 [facility] [address] [address] May, Bipolar affective, mixed 296.60 and Posttraumatic stress disorder 309.81 [facility] [address] [address] Apr, Bipolar I disorder, most recent episode (or current) mixed, unspecified 296.60 [facility] [address] [place] [phone] Mar, [facility] [address] [id number] [address] Feb, Bipolar affective, mixed 296.60 ; Posttraumatic stress disorder 309.81 ; Hypertension 401.9 ; Hyperlipidemia (Unspecified) 272.4 ; Coronary atherosclerosis due to calcified coronary lesion 414.4 ; Asthma, unspecified, unspecified status 493.90 ; Chronic pain syndrome 338.4 ; Hypothyroidism (unspecified) 244.9 ; Insomnia, unspecified 780.52 and tobacco use disorder 305.[address] [id number] [id number] Feb, Pneumonia 486 [facility] [address] [address] Sep, Bipolar I disorder, most recent episode (or current) mixed, unspecified 296.[address] [id number] [id number] Sep, Hyperlipidemia (Unspecified) 272.4 and Congestive heart failure 428.[address] [id number][place] [id number] Aug, [address] [id number], [place] [address] Aug, Bipolar affective, mixed 296.60 ; Posttraumatic stress disorder 309.81 ; Hypertension 401.9 ; Hyperlipidemia (Unspecified) 272.4 ; Coronary atherosclerosis due to calcified coronary lesion 414.4 ; Asthma, unspecified, unspecified status 493.90 ; Chronic pain syndrome 338.4 ; Hypothyroidism (unspecified) 244.9 ; Insomnia, unspecified 780.52 and tobacco use disorder 305.[address] [id number], [place] [id number] Aug, [facility] [address] [address] Aug, Major depressive disorder, recurrent episode, moderate 296.32 [address] [place] [address] [id number] Aug, Chronic pain syndrome 338.4 ; Asthma, unspecified, unspecified status 493.90 ; Hypothyroidism (unspecified) 244.9 ; Renal failure 586 ; Hyperlipidemia (Unspecified) 272.4 and Screening for HIV (human immunodeficiency virus) V73.89 [facility] [address] [place] [id number] [place] [address] Jul, Major depressive disorder, recurrent episode, moderate 296.32 Outpatient Adult [address] [place] [address] Jul, Major depressive disorder, recurrent episode, moderate 296.32 Outpatient Adult [address] [place] [address] Jul, Major depressive disorder, recurrent episode, moderate 296.32 [facility] [address] [place] [id number] [place] [address] Jul, Bipolar affective disorder, currently depressed, moderate 296.52 [facility] [place] [id number] [place] [address] June, Depressive disorder, not elsewhere classified 311 [...] moderate 296.32 and Posttraumatic stress disorder 309.[address] [place] [address] [id number] June, [facility] [address] [address] June, Major depressive disorder, recurrent episode, moderate 296.[id number] [place] [address] [id number] June, Chronic pain syndrome 338.[address] [place] [id number] May, [facility] [address] [address] May, Major depressive disorder, recurrent episode, moderate 296.32 and Posttraumatic stress disorder 309.81 [place] [id number] [place] [address] [id number] May, HIV (human immunodeficiency virus infection) V08 ; Hyperlipidemia (Unspecified) 272.4 and Chronic pain syndrome 338.[address] [id number] Apr, Chronic pain syndrome 338.4 ; Hypertension 401.9 ; Human immunodeficiency virus [HIV] 042 and Asthma, unspecified, unspecified status 493.90 [facility] [address] [address] Apr, Major depressive disorder, recurrent episode, moderate 296.32 [place] [id number] [place] [address] [id number] Apr, [address] [id number] Mar, HIV (human immunodeficiency virus infection) V08 [place] [id number] [place] [address] [id number] Mar, [place] [id number] [place] [address] Mar, Anxiety state, unspecified 300.00 [place] [id number] [place] [address] [id number] Mar, Lumbago 724.2 ; Other dyspnea and respiratory abnormalities 786.09 ; Hypothyroidism (unspecified) 244.9 ; Esophageal reflux 530.81 ; Hypertension 401.9 ; Hyperlipidemia (Unspecified) 272.4 and Screening for unspecified condition V82.[address] [id number] Feb, [place] [id number] [place] [address] [id number] Feb, Lumbago 724.2 [place] [id number] [place] [address] [id number] Feb, [place] [id number] Feb, [address] [id number] [place] [address] [id number] Jan, Lumbago 724.2 and Other dyspnea and respiratory abnormalities 786.09 [facility] [address] [address] Dec, Major depressive disorder, recurrent episode, moderate 296.32 and Posttraumatic stress disorder 309.[id number] [id number] Dec, Lumbago 724.2 ; Esophageal reflux 530.81 and Hypothyroidism (unspecified) 244.9 [facility] [id number] [place] [address] Dec, Anxiety state, unspecified 300.00 [facility] [id number] [place] [address] Nov, Anxiety state, unspecified 300.[id number] [place] [address] [id number] Nov, Lumbago 724.2 [facility] [address] [address] Oct, Major depressive disorder, recurrent episode, moderate 296.32 and Posttraumatic stress disorder 309.[address] [id number][place] [id number] Oct, [address] [id number] [place] [address] [id number] Sep, [address] [id number] [place] [address] [id number] Sep, Lumbago 724.2 ; Unspecified urinary incontinence 788.30 and Obstructive sleep apnea (adult) (pediatric) 327.23 [facility] [address] [address] Sep, Major depressive disorder, recurrent episode, moderate 296.32 and Posttraumatic stress disorder 309.[address] [id number], [place] [id number] Sep, [address] [id number], [place] [id number] Sep, [address] [id number], [place] [id number] Aug, [facility] [address] [facility] [id number], [place] [address] Jul, Bipolar I disorder, most recent episode (or current) mixed, unspecified 296.60 and Anxiety state, unspecified 300.00 [facility] [address] [address] Jul, Major depressive disorder, recurrent episode, moderate 296.32 and Posttraumatic stress disorder 309.[id number] [place] [address] [id number] Jul, Lumbago 724.2 ; Personal history of tobacco use, presenting hazards to health V15.82 ; Memory loss 780.93 and Obstructive sleep apnea (adult) (pediatric) 327.[id number] [place] [address] [id number] Jul, [address] [id number], [place] [id number] Jul, [address] [id number] [place] [address] [id number] June, [address] [id number], [place] [id number] June, [address] [id number] [place] [address] [id number] June, Cough 786.2 [facility] [address] [id number], [place] [address] June, Anxiety state, unspecified 300.00 [facility] [address] [address] May, Major depressive disorder, recurrent episode, moderate 296.32 and Posttraumatic stress disorder 309.[address] [id number], [place] [id number] May, Lumbago 724.2 and Other dyspnea and respiratory abnormalities 786.09 [facility] [address] [place] [address] [id number], [place] [id number] May, Unspecified dental caries 521.00 [facility] [address] [address] Mar, Major depressive disorder, recurrent episode, moderate 296.32 and Posttraumatic stress disorder 309.81 [facility] [address] [place] [id number] [id number] Mar, Unspecified dental caries 521.00 and Other specified periodontal diseases 523.8 [address] [id number] Mar, Backache (Unspecified) 724.5 and Wheezing 786.07 [facility] [address] [address] Mar, Major depressive disorder, recurrent episode, moderate 296.32 and Posttraumatic stress disorder 309.81 [facility] [address] [address] Feb, Major depressive disorder, recurrent episode, moderate 296.32 and Posttraumatic stress disorder 309.81 [facility] [address] [place] [address] Feb, Major depressive disorder, recurrent episode, moderate 296.32 and 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 300.02 Outpatient Adult [address] [place] [address] Feb, Major depressive disorder, recurrent episode, moderate 296.32 and Posttraumatic stress disorder 309.[address] [address] Feb, Major depressive disorder, recurrent episode, moderate 296.32 and Posttraumatic stress disorder 309.81 [facility] [address] [place] [id number] [id number] Feb, Dental examination V72.2 and Periodontosis 523.5 [id number] [id number] Feb, Lumbago 724.2 ; Esophageal reflux 530.81 ; Unspecified urinary incontinence 788.30 ; Constipation (Unspecified) 564.00 ; Other dyspnea and respiratory abnormalities 786.09 and Hypothyroidism (unspecified) 244.9 Outpatient Adult [address] [place] [address] Feb, Outpatient Adult [address] [place] [address] Feb, Major depressive disorder, recurrent episode, moderate 296.32 and Posttraumatic stress disorder 309.81 [facility] [address] [place] [address] Feb, Major depressive disorder, recurrent episode, moderate 296.32 and Posttraumatic stress disorder 309.81 [facility] [address] [place] [id number] Feb, IMMUNIZATIONS No Known Immunizations SOCIAL HISTORY [...] day 1 tablet 24h Active Fish Oil Wykoff-3 1000 MG Orally Once a day 1 [...] 10/2014 Surgical History trach 09/2014 Hospitalization History [facility], [place] 09/2014
--- OUTSIDE RECORDS SUMMARY | 2018-07-08 22:45 | XMS REPORT ---
Author Author Orly Chanel Organization [facility] Address [address] [place] [address] Care Team Providers Care Special Education Associate Name Role Phone Orly Chanel Unavailable PROBLEMS Type Condition ICD9-CM Code [id number] Code Onset Dates Condition Status SNOMED Code Problem Chronic apical periodontitis K04.5 Active 3708410 Problem Gingivitis K05.10 Active 56733203 Problem 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 F41.1 Active 44115821 Problem Bipolar disorder, current episode mixed, unspecified F31.60 Active 79020036 ALLERGIES No Information ENCOUNTERS Encounter Location Date Diagnosis [facility] [address] [place] [address] Sep, [facility] [address] [place] [address] June, 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 F41.1 [facility] [address] [place] [address] June, [facility] [address] [place] [address] Mar, 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 F41.1 [facility] [address] [place] [address] Mar, [facility] [address] [place] [address] Dec, 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 F41.[address] [place] [id number] Oct, Dental [address] [id number] Oct, Encounter for dental examination Z01.20 ; Dental caries extending into dentin K02.62 ; Chronic apical periodontitis K04.5 ; Periodontosis K05.4 and Gingivitis K05.10 Outpatient Adult [address] [place] [address] Oct, [facility] [address] [place] [id number] [place] [address] Sep, 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 F41.1 Outpatient Adult [address] [place] [address] May, [facility] [address] [place] [id number] [place] [address] May, Bipolar disorder, current episode mixed, unspecified F31.60 [facility] [address] [place], [place] [id number] [place] [address] Feb, [facility] [address] [place] [address] Jan, Bipolar disorder, current episode mixed, unspecified F31.60 Outpatient Adult [address] [place] [address] Jan, Bipolar disorder, current episode mixed, unspecified F31.60 Outpatient Adult [address] [place] [address] Dec, Bipolar disorder, current episode mixed, unspecified F31.60 Outpatient Adult [address] [place] [address] Nov, Bipolar disorder, current episode mixed, unspecified F31.60 [facility] [address] [place] [phone] Nov, [facility] [address] [place] [id number] [place] [address] Oct, Bipolar disorder, current episode mixed, unspecified F31.60 Outpatient Adult [address] [place] [address] Oct, Bipolar disorder, current episode mixed, unspecified F31.60 Outpatient Adult [address] [place] [address] Sep, Bipolar disorder, current episode mixed, unspecified F31.60 [facility] [address] [place] [id number] [place] [address] Apr, Bipolar disorder, current episode mixed, unspecified F31.60 [facility] [address] [place] [id number] [place] [address] Apr, [facility] Services [address] [place] [address] Apr, [facility] [address] [place] [id number] [place] [address] Apr, Bipolar disorder, current episode mixed, unspecified F31.60 and Anxiety F41.9 Outpatient Adult [address] [place] [address] Apr, Bipolar disorder, current episode mixed, unspecified F31.60 and Post-traumatic stress disorder, chronic F43.12 Outpatient Adult [address] [place] [address] Feb, Bipolar disorder, current episode mixed, unspecified F31.60 and Post-traumatic stress disorder, chronic F43.12 Outpatient Adult [address] [place] [address] Sep, Bipolar affective, mixed 296.60 and Posttraumatic stress disorder 309.81 [facility] [address] [place], [place] [id number] [place] [address] Sep, Bipolar affective, mixed 296.60 and Anxiety disorder 300.00 [facility] [address] [place] [id number] [place] [address] Jul, Bipolar affective, mixed 296.60 and Anxiety disorder 300.00 Outpatient Adult [address] [place] [address] June, Posttraumatic stress disorder 309.81 and Bipolar affective, mixed 296.60 [facility] [address] [place] [id number] [place] [address] June, Outpatient Adult [address] [place] [address] June, Bipolar affective, mixed 296.60 and Posttraumatic stress disorder 309.81 N Outpatient [address] [place] [address] Jan, Bipolar affective, mixed 296.60 and Posttraumatic stress disorder 309.81 [facility] [address] [address] Jan, Bipolar affective, mixed 296.60 and Posttraumatic stress disorder 309.81 [facility] [address] [place] [address] Dec, Bipolar affective, mixed 296.60 and Posttraumatic stress disorder 309.81 [facility] [address] [address] Nov, Bipolar affective, mixed 296.60 and Posttraumatic stress disorder 309.[address] [place] [id number] Nov, Cardiomyopathy 425.4 ; Bipolar affective, mixed 296.60 ; COPD (chronic obstructive pulmonary disease) 496 and Chronic back pain greater than 3 months duration 724.5 [place] [id number] [place] [address] [id number] Oct, [facility] Outpatient [address] [address] Oct, Bipolar affective, mixed 296.60 and Posttraumatic stress disorder 309.81 [facility] Services [address] [place] [address] Sep, Bipolar affective, mixed 296.60 and Posttraumatic stress disorder 309.81 Outpatient Adult [address] [place] [address] Sep, Bipolar affective, mixed 296.60 and Posttraumatic stress disorder 309.81 [facility] Outpatient [address] [address] June, Bipolar affective, mixed 296.60 and Posttraumatic stress disorder 309.81 [facility] Psych [place] [address] [place] [address] Apr, Bipolar affective, mixed 296.60 ; Posttraumatic stress disorder 309.81 and Insomnia, unspecified 780.52 Outpatient Adult [address] [place] [address] Dec, Bipolar affective, mixed 296.60 and Posttraumatic stress disorder 309.81 Psych[facility] Services [address] [place] [id number] [place] [address] Nov, Bipolar affective, mixed 296.60 ; Posttraumatic stress disorder 309.81 ; Hypertension 401.9 ; Hyperlipidemia (Unspecified) 272.4 ; Coronary atherosclerosis due to calcified coronary lesion 414.4 ; Asthma, unspecified, unspecified status 493.90 ; Chronic pain syndrome 338.4 ; Hypothyroidism (unspecified) 244.9 ; Insomnia, unspecified 780.52 and tobacco use disorder 305.1 [facility] [address] [place] [address] [id number] Nov, [facility] [address] [place] [address] [id number] Nov, Presbyopia 367.4 [facility] [address] [place] [id number] [place] [address] Nov, [facility] [address] [place] [id number] Nov, Outpatient Adult [address] [place] [address] Oct, Bipolar affective, mixed 296.60 and Posttraumatic stress disorder 309.81 [facility] [address] [place] [id number] [place] [address] Sep, Bipolar affective, mixed 296.60 ; Posttraumatic stress disorder 309.81 ; Hypertension 401.9 ; Hyperlipidemia (Unspecified) 272.4 ; Coronary atherosclerosis due to calcified coronary lesion 414.4 ; Asthma, unspecified, unspecified status 493.90 ; Chronic pain syndrome 338.4 ; Hypothyroidism (unspecified) 244.9 ; Insomnia, unspecified 780.52 and tobacco use disorder 305.1 [facility] Psych [address] [id number] [address] May, Bipolar affective, mixed 296.60 ; Posttraumatic stress disorder 309.81 ; Hypertension 401.9 ; Hyperlipidemia (Unspecified) 272.4 ; Coronary atherosclerosis due to calcified coronary lesion 414.4 ; Asthma, unspecified, unspecified status 493.90 ; Chronic pain syndrome 338.4 ; Hypothyroidism (unspecified) 244.9 ; Insomnia, unspecified 780.52 ; tobacco use disorder 305.1 and Bipolar I disorder, most re cent episode (or current) mixed, unspecified 296.60 [facility] Outpatient [address] [address] May, Bipolar affective, mixed 296.60 and Posttraumatic stress disorder 309.81 [facility] Outpatient [address] [address] Apr, Bipolar I disorder, most recent episode (or current) mixed, unspecified 296.60 [facility] [address] [place] [address] [id number] Mar, [facility] Psych [address] [id number] [address] Feb, Bipolar affective, mixed 296.60 ; Posttraumatic stress disorder 309.81 ; Hypertension 401.9 ; Hyperlipidemia (Unspecified) 272.4 ; Coronary atherosclerosis due to calcified coronary lesion 414.4 ; Asthma, unspecified, unspecified status 493.90 ; Chronic pain syndrome 338.4 ; Hypothyroidism (unspecified) 244.9 ; Insomnia, unspecified 780.52 and tobacco use disorder 305.[address] [place] [address] [id number] Feb, Pneumonia 486 [facility] Outpatient [address] [address] Sep, Bipolar I disorder, most recent episode (or current) mixed, unspecified 296.[address] [id number] Sep, Hyperlipidemia (Unspecified) 272.4 and Congestive heart failure 428.[address] [id number] Aug, [facility] Psych [place] [id number] [place] [address] Aug, Bipolar affective, mixed 296.60 ; Posttraumatic stress disorder 309.81 ; Hypertension 401.9 ; Hyperlipidemia (Unspecified) 272.4 ; Coronary atherosclerosis due to calcified coronary lesion 414.4 ; Asthma, unspecified, unspecified status 493.90 ; Chronic pain syndrome 338.4 ; Hypothyroidism (unspecified) 244.9 ; Insomnia, unspecified 780.52 and tobacco use disorder 305.[address] [place] [address] [id number] Aug, [facility] Outpatient [address] [address] Aug, Major depressive disorder, recurrent episode, moderate 296.32 [address] [place] [address] [id number] Aug, Chronic pain syndrome 338.4 ; Asthma, unspecified, unspecified status 493.90 ; Hypothyroidism (unspecified) 244.9 ; Renal failure 586 ; Hyperlipidemia (Unspecified) 272.4 and Screening for HIV (human immunodeficiency virus) V73.89 Psychiatric Services [address] [place] [id number] [place] [address] Jul, Major depressive disorder, recurrent episode, moderate 296.32 Outpatient Adult [address] [place] [address] Jul, Major depressive disorder, recurrent episode, moderate 296.32 Outpatient Adult [address] [place] [address] Jul, Major depressive disorder, recurrent episode, moderate 296.32 [facility] [address] [place] [id number] [place] [address] Jul, Bipolar affective disorder, currently depressed, moderate 296.52 [facility] Psych [place] [address] [place] [address] June, Depressive disorder, not elsewhere classified 311 [...] moderate 296.32 and Posttraumatic stress disorder 309.[address] [id number] June, [facility] Outpatient [address] [address] June, Major depressive disorder, recurrent episode, moderate 296.[address] [id number] June, Chronic pain syndrome 338.4 [facility] [address] [place] [address] [id number] May, [facility] Outpatient [address] [address] May, Major depressive disorder, recurrent episode, moderate 296.32 and Posttraumatic stress disorder 309.[address] [id number] May, HIV (human immunodeficiency virus infection) V08 ; Hyperlipidemia (Unspecified) 272.4 and Chronic pain syndrome 338.[address] [id number] Apr, Chronic pain syndrome 338.4 ; Hypertension 401.9 ; Human immunodeficiency virus [HIV] 042 and Asthma, unspecified, unspecified status 493.90 [facility] Outpatient [address] [address] Apr, Major depressive disorder, recurrent episode, moderate 296.32 [address] [place] [id number] Apr, [address] [id number] Mar, HIV (human immunodeficiency virus infection) V08 [place] [id number] [place] [address] [id number] Mar, [facility] Psych [address] [address] Mar, Anxiety state, unspecified 300.[address] [id number] Mar, Lumbago 724.2 ; Other dyspnea and respiratory abnormalities 786.09 ; Hypothyroidism (unspecified) 244.9 ; Esophageal reflux 530.81 ; Hypertension 401.9 ; Hyperlipidemia (Unspecified) 272.4 and Screening for unspecified condition V82.[address] [id number] Feb, [place] [id number] [place] [address] [id number] Feb, Lumbago 724.[address] [id number] Feb, [address] [id number] Feb, [place] [address] [place] [address] [id number] Jan, Lumbago 724.2 and Other dyspnea and respiratory abnormalities 786.09 [facility] Outpatient [address] [address] Dec, Major depressive disorder, recurrent episode, moderate 296.32 and Posttraumatic stress disorder 309.[address] [id number] Dec, Lumbago 724.2 ; Esophageal reflux 530.81 and Hypothyroidism (unspecified) 244.9 [facility] Psych [place] [id number] [place] [address] Dec, Anxiety state, unspecified 300.00 [facility] Psych [address] [place] [address] Nov, Anxiety state, unspecified 300.[address] [id number] [id number] Nov, Lumbago 724.2 [facility] Outpatient [address] [address] Oct, Major depressive disorder, recurrent episode, moderate 296.32 and Posttraumatic stress disorder 309.[id number] [id number] Oct, [address] [id number] [id number] Sep, [id number] [id number] Sep, Lumbago 724.2 ; Unspecified urinary incontinence 788.30 and Obstructive sleep apnea (adult) (pediatric) 327.[address] [address] Sep, Major depressive disorder, recurrent episode, moderate 296.32 and Posttraumatic stress disorder 309.[address] [id number], [place] [id number] Sep, [address] [id number] [id number] Sep, [id number] [place] [address] [id number] Aug, [id number] [place] [address] Jul, Bipolar I disorder, most recent episode (or current) mixed, unspecified 296.60 and Anxiety state, unspecified 300.00 [facility] Outpatient [address] [address] Jul, Major depressive disorder, recurrent episode, moderate 296.32 and Posttraumatic stress disorder 309.[address] [id number][place] [id number] Jul, Lumbago 724.2 ; Personal history of tobacco use, presenting hazards to health V15.82 ; Memory loss 780.93 and Obstructive sleep apnea (adult) (pediatric) 327.[address] [id number][place] [id number] Jul, [address] [id number][place] [id number] Jul, [address] [place] [address] [id number] June, [address] [id number] June, [address] [id number] June, Cough 786.2 [facility] Psych [place] [id number] [place] [address] June, Anxiety state, unspecified 300.00 [facility] Outpatient [address] [address] May, Major depressive disorder, recurrent episode, moderate 296.32 and Posttraumatic stress disorder 309.81 [place] [id number] [place] [address] [id number] May, Lumbago 724.2 and Other dyspnea and respiratory abnormalities 786.09 [facility] Dental [address] [place] [id number] [place] [address] [id number] May, Unspecified dental caries 521.00 [facility] Outpatient [address] [address] Mar, Major depressive disorder, recurrent episode, moderate 296.32 and Posttraumatic stress disorder 309.81 [facility] Dental [address] [place] [id number] [place] [address] [id number] Mar, Unspecified dental caries 521.00 and Other specified periodontal diseases 523.[address] [place] [address] [id number] Mar, Backache (Unspecified) 724.5 and Wheezing 786.07 [facility] Outpatient [address] [address] Mar, Major depressive disorder, recurrent episode, moderate 296.32 and Posttraumatic stress disorder 309.81 [facility] Outpatient [address] [address] Feb, Major depressive disorder, recurrent episode, moderate 296.32 and Posttraumatic stress disorder 309.81 [facility] [address] [address] Feb, Major depressive disorder, recurrent episode, moderate 296.32 and 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 300.02 Outpatient Adult [address] [place] [address] Feb, Major depressive disorder, recurrent episode, moderate 296.32 and Posttraumatic stress disorder 309.81 [facility] [address] [place] [address] Feb, Major depressive disorder, recurrent episode, moderate 296.32 and Posttraumatic stress disorder 309.81 [facility] Dental [address] [facility] [id number] [id number] Feb, Dental examination V72.[address] [facility] [address] [facility] [id number] [id number] Feb, Lumbago 724.2 ; Esophageal reflux 530.81 ; Unspecified urinary incontinence 788.30 ; Constipation (Unspecified) 564.00 ; Other dyspnea and respiratory abnormalities 786.09 and Hypothyroidism (unspecified) 244.9 Outpatient Adult [address] [place] [address] Feb, Outpatient Adult [address] [place] [address] Feb, Major depressive disorder, recurrent episode, moderate 296.32 and Posttraumatic stress disorder 309.81 Outpatient Children [address] [place] [address] Feb, Major depressive disorder, recurrent episode, moderate 296.32 and Posttraumatic stress disorder 309.81 [facility] [address] [place] [id number] Feb, IMMUNIZATIONS No Known Immunizations SOCIAL HISTORY [...] 10/2014 Surgical History trach 09/2014 Hospitalization History [place], [place] 09/2014
--- OUTSIDE RECORDS SUMMARY | 2018-07-08 22:46 | XMS REPORT ---
Author Author Jimbo Christianson Organization [facility] Address [address] [place] [address] Care Team Providers Care Operations Examiner Name Role Phone Jimbo Christianson Unavailable PROBLEMS Type Condition ICD9-CM Code JEB05-AP Code Onset Dates Condition Status SNOMED Code Problem Chronic apical periodontitis K04.5 Active 4216174 Problem Gingivitis K05.10 Active 17514831 Problem 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 F41.1 Active 91520429 Problem Bipolar disorder, current episode mixed, unspecified F31.60 Active 73538416 ALLERGIES Substance Reaction Event Type Date Status morphine Unknown Drug Allergy Sep, Active Iodine Unknown Drug Allergy Sep, Active Adhesive Tape Rash Non Drug Allergy Sep, Active ENCOUNTERS Encounter Location Date Diagnosis [facility] [address] [place] [id number] [place] [phone] Dec, [facility] [address] [place] [address] Sep, 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 F41.1 [facility] [address] [place] [phone] June, 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 F41.1 [employer] [address] [place] [address] June, [facility] [address] [place] [id number] [place] [phone] Mar, 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 F41.1 [facility] [address] [place] [id number] [place] [address] Mar, [facility] [address] [place] [address] Dec, 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 F41.1 Optometry [address] [place] [id number] Oct, Dental [address] [id number] Oct, Encounter for dental examination Z01.20 ; Dental caries extending into dentin K02.62 ; Chronic apical periodontitis K04.5 ; Periodontosis K05.4 and Gingivitis K05.10 Outpatient Adult [address] [place] [address] Oct, [facility] [address] [place] [id number] [place] [address] Sep, 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 F41.1 Outpatient Adult [address] [place] [address] May, [facility] [address] [place] [phone] May, Bipolar disorder, current episode mixed, unspecified F31.60 [facility] [address] [place] [id number] [place] [phone] Feb, [facility] [address] [place] [phone] Jan, Bipolar disorder, current episode mixed, unspecified F31.60 Outpatient Adult [address] [place] [phone] Jan, Bipolar disorder, current episode mixed, unspecified F31.60 Outpatient Adult [address] [place] [address] Dec, Bipolar disorder, current episode mixed, unspecified F31.60 Outpatient Adult [address] [place] [address] Nov, Bipolar disorder, current episode mixed, unspecified F31.60 [facility] [address] [place] [phone] Nov, [facility] [address] [place] [id number] [place] [phone] Oct, Bipolar disorder, current episode mixed, unspecified F31.60 Outpatient Adult [address] [place] [address] Oct, Bipolar disorder, current episode mixed, unspecified F31.60 Outpatient Adult [address] [place] [address] Sep, Bipolar disorder, current episode mixed, unspecified F31.60 [facility] [address] [place] [id number] [place] [address] Apr, Bipolar disorder, current episode mixed, unspecified F31.60 [facility] [address] [place] [address] [place] [address] Apr, Intake Services [address] [place] [phone] Apr, [facility] [address] [place] [address] [place] [address] Apr, Bipolar disorder, current episode mixed, unspecified F31.60 and Anxiety F41.9 Outpatient Adult [address] [place] [address] Apr, Bipolar disorder, current episode mixed, unspecified F31.60 and Post-traumatic stress disorder, chronic F43.12 Outpatient Adult [address] [place] [phone] Feb, Bipolar disorder, current episode mixed, unspecified F31.60 and Post-traumatic stress disorder, chronic F43.12 Outpatient Adult [address] [place] [address] Sep, Bipolar affective, mixed 296.60 and Posttraumatic stress disorder 309.81 [facility] [address] [place] [id number] [place] [phone] Sep, Bipolar affective, mixed 296.60 and Anxiety disorder 300.00 [facility] [address] [place] [id number] [place] [address] Jul, Bipolar affective, mixed 296.60 and Anxiety disorder 300.00 Outpatient Adult [address] [place] [address] June, Posttraumatic stress disorder 309.81 and Bipolar affective, mixed 296.60 [facility] [address] [place] [address] [place] [phone] June, Outpatient Adult [address] [place] [address] June, Bipolar affective, mixed 296.60 and Posttraumatic stress disorder 309.81 N Outpatient [address] [place] [address] Jan, Bipolar affective, mixed 296.60 and Posttraumatic stress disorder 309.81 [facility] [address] [place] [id number] [place] [phone] Jan, Bipolar affective, mixed 296.60 and Posttraumatic stress disorder 309.81 [facility] Outpatient [address] [address] Dec, Bipolar affective, mixed 296.60 and Posttraumatic stress disorder 309.81 [facility] Outpatient [address] [address] Nov, Bipolar affective, mixed 296.60 and Posttraumatic stress disorder 309.81 [address] [id number] Nov, Cardiomyopathy 425.4 ; Bipolar affective, mixed 296.60 ; COPD (chronic obstructive pulmonary disease) 496 and Chronic back pain greater than 3 months duration 724.5 [place] [id number] [place] [phone] Oct, [facility] Outpatient [address] [address] Oct, Bipolar affective, mixed 296.60 and Posttraumatic stress disorder 309.81 [facility] [address] [place] [address] [place] [address] Sep, Bipolar affective, mixed 296.60 and Posttraumatic stress disorder 309.81 Outpatient Adult [address] [place] [address] Sep, Bipolar affective, mixed 296.60 and Posttraumatic stress disorder 309.81 [facility] Outpatient [address] [address] June, Bipolar affective, mixed 296.60 and Posttraumatic stress disorder 309.81 [facility] Psych [address] [place] [address] Apr, Bipolar affective, mixed 296.60 ; Posttraumatic stress disorder 309.81 and Insomnia, unspecified 780.52 Outpatient Adult [address] [place] [address] Dec, Bipolar affective, mixed 296.60 and Posttraumatic stress disorder 309.81 [facility] [address] [place] [address] [place] [address] Nov, Bipolar affective, mixed 296.60 ; Posttraumatic stress disorder 309.81 ; Hypertension 401.9 ; Hyperlipidemia (Unspecified) 272.4 ; Coronary atherosclerosis due to calcified coronary lesion 414.4 ; Asthma, unspecified, unspecified status 493.90 ; Chronic pain syndrome 338.4 ; Hypothyroidism (unspecified) 244.9 ; Insomnia, unspecified 780.52 and tobacco use disorder 305.1 [facility] [address] [place] [phone] Nov, [facility] [address] [place] [phone] Nov, Presbyopia 367.4 [facility] [address] [place] [address] [id number] [address] Nov, [facility] [address] [place] [phone] Nov, Outpatient Adult [address] [place] [phone] Oct, Bipolar affective, mixed 296.60 and Posttraumatic stress disorder 309.81 [facility] [address] [place] [address] [address] Sep, Bipolar affective, mixed 296.60 ; Posttraumatic stress disorder 309.81 ; Hypertension 401.9 ; Hyperlipidemia (Unspecified) 272.4 ; Coronary atherosclerosis due to calcified coronary lesion 414.4 ; Asthma, unspecified, unspecified status 493.90 ; Chronic pain syndrome 338.4 ; Hypothyroidism (unspecified) 244.9 ; Insomnia, unspecified 780.52 and tobacco use disorder 305.1 N Psych [facility] [id number] [address] May, Bipolar affective, mixed 296.60 ; Posttraumatic stress disorder 309.81 ; Hypertension 401.9 ; Hyperlipidemia (Unspecified) 272.4 ; Coronary atherosclerosis due to calcified coronary lesion 414.4 ; Asthma, unspecified, unspecified status 493.90 ; Chronic pain syndrome 338.4 ; Hypothyroidism (unspecified) 244.9 ; Insomnia, unspecified 780.52 ; tobacco use disorder 305.1 and Bipolar I disorder, most re cent episode (or current) mixed, unspecified 296.60 [facility] Outpatient [facility] [place] [address] May, Bipolar affective, mixed 296.60 and Posttraumatic stress disorder 309.81 [facility] Outpatient [address] [address] Apr, Bipolar I disorder, most recent episode (or current) mixed, unspecified 296.60 [facility] [address] [place] [phone] Mar, [facility] Psych [id number] [place] [address] Feb, Bipolar affective, mixed 296.60 ; Posttraumatic stress disorder 309.81 ; Hypertension 401.9 ; Hyperlipidemia (Unspecified) 272.4 ; Coronary atherosclerosis due to calcified coronary lesion 414.4 ; Asthma, unspecified, unspecified status 493.90 ; Chronic pain syndrome 338.4 ; Hypothyroidism (unspecified) 244.9 ; Insomnia, unspecified 780.52 and tobacco use disorder 305.[id number] [place] [id number] Feb, Pneumonia 486 [facility] Outpatient [address] [address] Sep, Bipolar I disorder, most recent episode (or current) mixed, unspecified 296.[id number] [place] [address] [id number] Sep, Hyperlipidemia (Unspecified) 272.4 and Congestive heart failure 428.[address] [place] [phone] Aug, [id number] [place] [address] Aug, Bipolar affective, mixed 296.60 ; Posttraumatic stress disorder 309.81 ; Hypertension 401.9 ; Hyperlipidemia (Unspecified) 272.4 ; Coronary atherosclerosis due to calcified coronary lesion 414.4 ; Asthma, unspecified, unspecified status 493.90 ; Chronic pain syndrome 338.4 ; Hypothyroidism (unspecified) 244.9 ; Insomnia, unspecified 780.52 and tobacco use disorder 305.[id number] [place] [address] [id number] Aug, [facility] Outpatient [address] [address] Aug, Major depressive disorder, recurrent episode, moderate 296.[id number] [place] [address] [id number] Aug, Chronic pain syndrome 338.4 ; Asthma, unspecified, unspecified status 493.90 ; Hypothyroidism (unspecified) 244.9 ; Renal failure 586 ; Hyperlipidemia (Unspecified) 272.4 and Screening for HIV (human immunodeficiency virus) V73.89 [facility] [address] [address] Jul, Major depressive disorder, recurrent episode, moderate 296.32 Outpatient Adult [address] [place] [address] Jul, Major depressive disorder, recurrent episode, moderate 296.32 Outpatient Adult [address] [place] [address] Jul, Major depressive disorder, recurrent episode, moderate 296.32 [facility] [address] [address] Jul, Bipolar affective disorder, currently depressed, moderate 296.52 [facility] Psych [place] [id number] [place] [address] June, Depressive disorder, not elsewhere classified 311 [...] moderate 296.32 and Posttraumatic stress disorder 309.81 [place] [id number] [place] [address] [id number] June, [facility] Outpatient [address] [address] June, Major depressive disorder, recurrent episode, moderate 296.32 [place] [address] [place] [address] [id number] June, Chronic pain syndrome 338.4 [facility] [address] [place] [id number] May, [facility] Outpatient [address] [address] May, Major depressive disorder, recurrent episode, moderate 296.32 and Posttraumatic stress disorder 309.81 [place] [address] [place] [address] [id number] May, HIV (human immunodeficiency virus infection) V08 ; Hyperlipidemia (Unspecified) 272.4 and Chronic pain syndrome 338.4 [place] [address] [place] [address] [id number] Apr, Chronic pain syndrome 338.4 ; Hypertension 401.9 ; Human immunodeficiency virus [HIV] 042 and Asthma, unspecified, unspecified status 493.90 [facility] Outpatient [address] [address] Apr, Major depressive disorder, recurrent episode, moderate 296.32 [place] [address] [place] [phone] Apr, [address] [phone] Mar, HIV (human immunodeficiency virus infection) V08 [place] [address] [place] [phone] Mar, [facility] Psych [address] [address] Mar, Anxiety state, unspecified 300.00 [place] [address] [place] [address] [id number] Mar, Lumbago 724.2 ; Other dyspnea and respiratory abnormalities 786.09 ; Hypothyroidism (unspecified) 244.9 ; Esophageal reflux 530.81 ; Hypertension 401.9 ; Hyperlipidemia (Unspecified) 272.4 and Screening for unspecified condition V82.9 [place] [address] [place] [address] [id number] Feb, [place] [address] [place] [address] [id number] Feb, Lumbago 724.[address] [place] [address] [id number] Feb, [address] [place] [address] [id number] Feb, [address] [place] [address] [id number] Jan, Lumbago 724.2 and Other dyspnea and respiratory abnormalities 786.09 [facility] Outpatient [address] [address] Dec, Major depressive disorder, recurrent episode, moderate 296.32 and Posttraumatic stress disorder 309.81 [address] [id number] Dec, Lumbago 724.2 ; Esophageal reflux 530.81 and Hypothyroidism (unspecified) 244.9 [facility] Psych [address] [id number] [address] Dec, Anxiety state, unspecified 300.00 [facility] Psych [address] [id number] [address] Nov, Anxiety state, unspecified 300.[id number] [place] [address] [id number] Nov, Lumbago 724.2 [facility] Outpatient [address] [address] Oct, Major depressive disorder, recurrent episode, moderate 296.32 and Posttraumatic stress disorder 309.[id number] [place] [address] [id number] Oct, [id number] [place] [address] [id number] Sep, [id number] [place] [address] [id number] Sep, Lumbago 724.2 ; Unspecified urinary incontinence 788.30 and Obstructive sleep apnea (adult) (pediatric) 327.23 [facility] Outpatient [address] [address] Sep, Major depressive disorder, recurrent episode, moderate 296.32 and Posttraumatic stress disorder 309.[address] [id number] [place] [id number] Sep, [address] [id number] [place] [id number] Sep, [address] [id number] [place] [id number] Aug, [address] [id number] [place] [phone] Jul, Bipolar I disorder, most recent episode (or current) mixed, unspecified 296.60 and Anxiety state, unspecified 300.00 [facility] Outpatient [address] [address] Jul, Major depressive disorder, recurrent episode, moderate 296.32 and Posttraumatic stress disorder 309.[address] [id number] [place] [id number] Jul, Lumbago 724.2 ; Personal history of tobacco use, presenting hazards to health V15.82 ; Memory loss 780.93 and Obstructive sleep apnea (adult) (pediatric) 327.[id number] [place] [address] [id number] Jul, [id number] [place] [address] [id number] Jul, [id number] [id number] June, [id number] [id number] June, [id number] [id number] June, Cough 786.2 [facility] Psych [address] [address] June, Anxiety state, unspecified 300.00 [facility] Outpatient [address] [address] May, Major depressive disorder, recurrent episode, moderate 296.32 and Posttraumatic stress disorder 309.81 [place] [address] [place] [address] [id number] May, Lumbago 724.2 and Other dyspnea and respiratory abnormalities 786.09 [facility] Dental [address] [place] [address] [id number] May, Unspecified dental caries 521.00 [facility] Outpatient [address] [address] Mar, Major depressive disorder, recurrent episode, moderate 296.32 and Posttraumatic stress disorder 309.81 [facility] Dental [address] [place] [address] [id number] Mar, Unspecified dental caries 521.00 and Other specified periodontal diseases 523.[address] [id number] Mar, Backache (Unspecified) 724.5 and Wheezing 786.07 [facility] Outpatient [address] [address] Mar, Major depressive disorder, recurrent episode, moderate 296.32 and Posttraumatic stress disorder 309.81 [facility] Outpatient [address] [address] Feb, Major depressive disorder, recurrent episode, moderate 296.32 and Posttraumatic stress disorder 309.81 [facility] [address] [place] [id number] [address] Feb, Major depressive disorder, recurrent episode, moderate 296.32 and 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 300.02 Outpatient Adult [address] [place] [address] Feb, Major depressive disorder, recurrent episode, moderate 296.32 and Posttraumatic stress disorder 309.81 [facility] Outpatient [address] [place] [address] Feb, Major depressive disorder, recurrent episode, moderate 296.32 and Posttraumatic stress disorder 309.81 [facility] Dental [address] [facility] [id number] [place] [id number] Feb, Dental examination V72.2 and Periodontosis 523.5 [facility] [address] [facility] [id number] [place] [id number] Feb, Lumbago 724.2 ; Esophageal reflux 530.81 ; Unspecified urinary incontinence 788.30 ; Constipation (Unspecified) 564.00 ; Other dyspnea and respiratory abnormalities 786.09 and Hypothyroidism (unspecified) 244.9 Outpatient Adult [address] [place] [phone] Feb, Outpatient Adult [address] [place] [phone] Feb, Major depressive disorder, recurrent episode, moderate 296.32 and Posttraumatic stress disorder 309.81 [facility]patient [facility] [address] [place] [address] Feb, Major depressive disorder, recurrent episode, moderate 296.32 and Posttraumatic stress disorder 309.81 [facility] [address] [place] [id number] Feb, IMMUNIZATIONS No Known Immunizations SOCIAL HISTORY [...] 10/2014 Surgical History trach 09/2014 Hospitalization History [place], [place] 09/2014
--- OUTSIDE RECORDS SUMMARY | 2018-07-08 22:46 | XMS REPORT ---
Author Author Benjamin Sierra Organization [employer] Address Unknown Phone Unavailable Care Team Providers Care [employer] Business Segment Leader Name Role Phone Benjamin Sierra CP Unavailable Allergies No Known Allergies Problems Problem Type Condition Code Onset Dates Condition Status Assessment Bipolar disorder, current episode mixed, unspecified F31.60 Active Problem Bipolar disorder, current episode mixed, unspecified F31.60 Active Medications Medication Code System Code Instructions Start Date End Date Status Dosage Coreg [facility] [address]-49 25 MG Orally Twice a day 1 tablet Spiriva HandiHaler [facility] [address]-29 18 MCG Inhalation Once a day 1 capsule Advair HFA [facility] [address]-53 115-21 MCG/ACT Inhalation Twice a day 2 puffs Xanax [facility] [address]-70 1 MG Orally tid prn anxiety 1 tablet Xanax [facility] [address]-24 0.5 MG Orally tid prn anxiety 1 tablet Percocet [facility] [address]-81 7.5-325 MG Orally tid prn pain 1 tablet as needed Aspir-81 [facility] [address]-01 81 MG Orally Once a day 1 tablet Benzonatate [facility] [address]-35 200 MG Orally Three times a day Sep 28, 2013 1 capsule as needed Spironolactone [facility] [address]-91 25 MG Orally Twice a day 1 tablet Potassium Chloride [facility] [address]-11 10 MEQ Orally Once a day April 29, 2011 2 tablet Procedures Procedure Coding System Code Date PSYTX PT&/FAMILY 45 MINUTES CPT-4 84167 Dec 05, 2015 ON LICENSE OF [facility] VISIT MENTAL HEALTH ESTABLISHED PATIENT CPT-4 G0470 Dec 05, 2015 Results No Known Results Summary Purpose [employer] Submission
--- OUTSIDE RECORDS SUMMARY | 2018-07-08 22:46 | XMS REPORT ---
Author Author Deepika Christiansen Organization [employer] Address Unknown Phone Unavailable Care Team Providers Care Planning Manager Name Role Phone Deepika Christiansen Unavailable Allergies No Known Allergies Problems Problem Type Condition Code Onset Dates Condition Status Problem Bipolar disorder, current episode mixed, unspecified F31.60 Active Medications Medication Code System Code Instructions Start Date End Date Status Dosage Benzonatate [facility] [address]-00 200 MG Orally Three times a day Sep 28, 2013 1 capsule as needed Potassium Chloride [facility] [address]-49 10 MEQ Orally Once a day April 29, 2011 2 tablet Aspir-81 [facility] [address]-00 81 MG Orally Once a day 1 tablet Spiriva HandiHaler [facility] [address]-17 18 MCG Inhalation Once a day 1 capsule Spironolactone [facility] [address]-48 25 MG Orally Twice a day 1 tablet Xanax [facility] [address]-55 0.5 MG Orally tid prn anxiety 1 tablet Advair HFA [facility] [address]-42 115-21 MCG/ACT Inhalation Twice a day 2 puffs Xanax [facility] [address]-24 1 MG Orally tid prn anxiety 1 tablet Coreg [facility] [address]-26 25 MG Orally Twice a day 1 tablet Percocet [facility] [address]-63 7.5-325 MG Orally tid prn pain 1 tablet as needed Results No Known Results Summary Purpose [employer] Submission
--- OUTSIDE RECORDS SUMMARY | 2018-07-08 22:46 | XMS REPORT ---
Author Benjamin Samuels [facility] eClinicalWorks Address Unknown Phone Unavailable Care Team Providers Care Freezer Tunnel Operator Name Role Phone Benjamin Sierra Unavailable Allergies [...] Date End Date Status Dosage Spiriva HandiHaler [facility] [address]-50 18 MCG Inhalation Once a day 1 capsule Albuterol Sulfate [facility] [address]-29 (2.5 MG/3ML) 0.083% Inhalation Three times a day Feb 25, 2012 3 ml Fish Oil [facility] [address]-58 1000 MG Orally as directed Nitroglycerin [facility] [address]-95 0.4 MG Sublingual every 8 hrs 1 tablet under the tongue Levothyroxine Sodium [facility] [address]-10 50 MCG TAKE ONE TABLET BY MOUTH EVERY MORNING FOR EMPTY STOMACH Seroquel [facility] [address]-73 50 MG Orally at bedtime Dec 08, 2012 1 tablet Lamictal [facility] [address]-78 25 MG Orally at bedtime July 26, 2014 1 tablet Lovastatin [facility] [address]-73 40 mg Orally Once a day 1 tablet with a meal Coreg [facility] [address]-54 25 MG Orally Twice a day 1 tablet Omeprazole [facility] [address]-35 20 MG Orally Once a day 1 tablet Vitamin D [facility] [address]-62 1000 UNIT Orally Once a day 1 tablet Daliresp [facility] [address]-72 500 MCG Orally Once a day 1 tablet Nicotrol [facility] [address]-66 10 MG Inhalation qid 1 puff as needed Docusate Sodium [facility] [address]-25 100 MG Orally bid 1 capsule as needed Aspir-81 [facility] [address]-22 81 MG Orally Once a day 1 tablet Advair HFA [facility] [address]-11 115-21 MCG/ACT Inhalation Twice a day 2 puffs Lamictal [facility] [address]-61 25 MG Orally at bedtime 2 tablets [facility] 14695-04139 28-0.8 MG Orally not defined Lisinopril [facility] [address]-57 2.5 MG Orally Once a day 1 tablet Potassium Chloride [facility] [address]-06 10 MEQ Orally Once a day April 29, 2011 2 tablet Spironolactone [facility] [address]-94 25 MG Orally Twice a day 1 tablet Carvedilol [facility] [address]-42 25 MG Orally Twice a day Sep 28, 2013 1 tablet with food Xanax [facility] [address]-66 1 MG Orally tid prn anxiety 1 tablet Norvasc [facility] [address]-82 5 MG Orally Once a day 1 tablet Lasix [facility] [address]-71 80 MG Orally Once a day 1 tablet Benzonatate [facility] [address]-49 200 MG Orally Three times a day Sep 28, 2013 1 capsule as needed Albuterol Sulfate HFA [facility] [address]-04 108 (90 Base) MCG/ACT Inhalation every 4 hrs 2 puffs as needed Percocet [facility] [address]-25 7.5-325 MG Orally tid prn pain 1 tablet as needed Acetaminophen [facility] [address]-18 500 MG Orally every 6 hrs 1 capsule as needed Results No Known Results Summary Purpose eClinicalWorks Submission
--- OUTSIDE RECORDS SUMMARY | 2018-07-08 22:47 | XMS REPORT ---
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 Role Phone Jimbo Christianson Unavailable PROBLEMS Type Condition ICD9-CM Code WOM05-AX Code Onset Dates Condition Status SNOMED Code Problem Chronic apical periodontitis K04.5 Active 7385213 Problem Gingivitis K05.10 Active 60430752 Problem 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 F41.1 Active 34443170 Problem Bipolar disorder, current episode mixed, unspecified F31.60 Active 51645313 ALLERGIES Substance Reaction Event Type Date Status morphine Unknown Drug Allergy Mar, Active Iodine Unknown Drug Allergy Mar, Active Adhesive Tape Rash Non Drug Allergy Mar, Active ENCOUNTERS Encounter Location Date Diagnosis [facility] [address] [place] [id number] [place] [phone] June, [facility] [address] [place] [address] Mar, 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 F41.1 [facility] [address] [place] [id number] [place] [address] Mar, [facility] [address] [place] [id number] [place] [address] Dec, 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 F41.1 Optometry [address] [place] [id number] Oct, Dental [address] [place] [id number] [place] [phone] Oct, Encounter for dental examination Z01.20 ; Dental caries extending into dentin K02.62 ; Chronic apical periodontitis K04.5 ; Periodontosis K05.4 and Gingivitis K05.10 Outpatient Adult [address] [place] [address] Oct, [facility] [address] [place] [phone] Sep, 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 F41.1 Outpatient Adult [address] [place] [address] May, [facility] [address] [place] [id number] [place] [address] May, Bipolar disorder, current episode mixed, unspecified F31.60 [facility] [address] [place] [id number] [place] [address] Feb, [facility] [address] [place] [address] [place] [address] Jan, Bipolar disorder, current episode mixed, unspecified F31.60 Outpatient Adult [address] [place] [address] Jan, Bipolar disorder, current episode mixed, unspecified F31.60 Outpatient Adult [address] [place] [address] Dec, Bipolar disorder, current episode mixed, unspecified F31.60 Outpatient Adult [address] [place] [address] Nov, Bipolar disorder, current episode mixed, unspecified F31.60 [facility] [address] [place] [id number] Nov, [facility] [address] [place] [id number] [place] [address] Oct, Bipolar disorder, current episode mixed, unspecified F31.60 Outpatient Adult [address] [place] [address] Oct, Bipolar disorder, current episode mixed, unspecified F31.60 Outpatient Adult [address] [place] [address] Sep, Bipolar disorder, current episode mixed, unspecified F31.60 [facility] [address] [place] [address] Apr, Bipolar disorder, current episode mixed, unspecified F31.60 [facility] [address] [place] [address] Apr, Intake Services [address] [place] [phone] Apr, [facility] [address] [place] [address] Apr, Bipolar disorder, current episode mixed, unspecified F31.60 and Anxiety F41.9 Outpatient Adult [address] [place] [address] Apr, Bipolar disorder, current episode mixed, unspecified F31.60 and Post-traumatic stress disorder, chronic F43.12 Outpatient Adult [address] [place] [address] Feb, Bipolar disorder, current episode mixed, unspecified F31.60 and Post-traumatic stress disorder, chronic F43.12 Outpatient Adult [address] [place] [address] Sep, Bipolar affective, mixed 296.60 and Posttraumatic stress disorder 309.81 [facility] [address] [place] [id number] [place] [address] Sep, Bipolar affective, mixed 296.60 and Anxiety disorder 300.00 [facility] [address] [place] [id number] [place] [address] Jul, Bipolar affective, mixed 296.60 and Anxiety disorder 300.00 Outpatient Adult [address] [place] [address] June, Posttraumatic stress disorder 309.81 and Bipolar affective, mixed 296.60 [facility] [address] [place] [address] [place] [address] June, Outpatient Adult [address] [place] [address] June, Bipolar affective, mixed 296.60 and Posttraumatic stress disorder 309.81 [facility] Outpatient [facility] [place] [address] Jan, Bipolar affective, mixed 296.60 and Posttraumatic stress disorder 309.81 N [address] [place] [id number] [place] [address] Jan, Bipolar affective, mixed 296.60 and Posttraumatic stress disorder 309.[address] [address] Dec, Bipolar affective, mixed 296.60 and Posttraumatic stress disorder 309.81 [facility] Outpatient [address] [address] Nov, Bipolar affective, mixed 296.60 and Posttraumatic stress disorder 309.[address] [id number] [id number] Nov, Cardiomyopathy 425.4 ; Bipolar affective, mixed 296.60 ; COPD (chronic obstructive pulmonary disease) 496 and Chronic back pain greater than 3 months duration 724.[address] [id number] [id number] Oct, [facility] Outpatient [address] [address] Oct, Bipolar affective, mixed 296.60 and Posttraumatic stress disorder 309.81 [facility] [address] [place] [address] [place] [address] Sep, Bipolar affective, mixed 296.60 and Posttraumatic stress disorder 309.81 Outpatient Adult [address] [place] [address] Sep, Bipolar affective, mixed 296.60 and Posttraumatic stress disorder 309.81 [facility] Outpatient [address] [address] June, Bipolar affective, mixed 296.60 and Posttraumatic stress disorder 309.81 [facility] Psych [place] [address] Apr, Bipolar affective, mixed 296.60 ; Posttraumatic stress disorder 309.81 and Insomnia, unspecified 780.52 Outpatient Adult [address] [place] [address] Dec, Bipolar affective, mixed 296.60 and Posttraumatic stress disorder 309.81 [facility] [address] [place] [address] [place] [address] Nov, Bipolar affective, mixed 296.60 ; Posttraumatic stress disorder 309.81 ; Hypertension 401.9 ; Hyperlipidemia (Unspecified) 272.4 ; Coronary atherosclerosis due to calcified coronary lesion 414.4 ; Asthma, unspecified, unspecified status 493.90 ; Chronic pain syndrome 338.4 ; Hypothyroidism (unspecified) 244.9 ; Insomnia, unspecified 780.52 and tobacco use disorder 305.1 [facility] [address] [place] [phone] Nov, [facility] [address] [place] [phone] Nov, Presbyopia 367.4 [facility] [address] [place] [address] [address] Nov, [facility] [address] [place] [id number] Nov, Outpatient Adult [address] [place] [address] Oct, Bipolar affective, mixed 296.60 and Posttraumatic stress disorder 309.81 [facility] [address] [place] [id number] [place] [address] Sep, Bipolar affective, mixed 296.60 ; Posttraumatic stress disorder 309.81 ; Hypertension 401.9 ; Hyperlipidemia (Unspecified) 272.4 ; Coronary atherosclerosis due to calcified coronary lesion 414.4 ; Asthma, unspecified, unspecified status 493.90 ; Chronic pain syndrome 338.4 ; Hypothyroidism (unspecified) 244.9 ; Insomnia, unspecified 780.52 and tobacco use disorder 305.1 [facility] Psych [address] [address] May, Bipolar affective, mixed 296.60 ; Posttraumatic stress disorder 309.81 ; Hypertension 401.9 ; Hyperlipidemia (Unspecified) 272.4 ; Coronary atherosclerosis due to calcified coronary lesion 414.4 ; Asthma, unspecified, unspecified status 493.90 ; Chronic pain syndrome 338.4 ; Hypothyroidism (unspecified) 244.9 ; Insomnia, unspecified 780.52 ; tobacco use disorder 305.1 and Bipolar I disorder, most re cent episode (or current) mixed, unspecified 296.60 [facility] Outpatient [address] [address] May, Bipolar affective, mixed 296.60 and Posttraumatic stress disorder 309.81 [facility] Outpatient [address] [address] Apr, Bipolar I disorder, most recent episode (or current) mixed, unspecified 296.60 [facility] [address] [place] [phone] Mar, [place] [id number] [place] [address] Feb, Bipolar affective, mixed 296.60 ; Posttraumatic stress disorder 309.81 ; Hypertension 401.9 ; Hyperlipidemia (Unspecified) 272.4 ; Coronary atherosclerosis due to calcified coronary lesion 414.4 ; Asthma, unspecified, unspecified status 493.90 ; Chronic pain syndrome 338.4 ; Hypothyroidism (unspecified) 244.9 ; Insomnia, unspecified 780.52 and tobacco use disorder 305.[address] [place] [phone] Feb, Pneumonia 486 [facility] Outpatient [address] [address] Sep, Bipolar I disorder, most recent episode (or current) mixed, unspecified 296.[address] [place] [id number] [place] [phone] Sep, Hyperlipidemia (Unspecified) 272.4 and Congestive heart failure 428.0 [place] [id number] [place] [phone] Aug, [facility] Psych [address] [address] Aug, Bipolar affective, mixed 296.60 ; Posttraumatic stress disorder 309.81 ; Hypertension 401.9 ; Hyperlipidemia (Unspecified) 272.4 ; Coronary atherosclerosis due to calcified coronary lesion 414.4 ; Asthma, unspecified, unspecified status 493.90 ; Chronic pain syndrome 338.4 ; Hypothyroidism (unspecified) 244.9 ; Insomnia, unspecified 780.52 and tobacco use disorder 305.[address] [place] [phone] Aug, [facility] Outpatient [address] [address] Aug, Major depressive disorder, recurrent episode, moderate 296.32 [address] [place] [address] [id number] Aug, Chronic pain syndrome 338.4 ; Asthma, unspecified, unspecified status 493.90 ; Hypothyroidism (unspecified) 244.9 ; Renal failure 586 ; Hyperlipidemia (Unspecified) 272.4 and Screening for HIV (human immunodeficiency virus) V73.89 [facility] [id number] [place] [address] Jul, Major depressive disorder, recurrent episode, moderate 296.32 Outpatient Adult [address] [place] [address] Jul, Major depressive disorder, recurrent episode, moderate 296.32 Outpatient Adult [address] [place] [address] Jul, Major depressive disorder, recurrent episode, moderate 296.32 [facility] [id number] [place] [address] Jul, Bipolar affective disorder, currently depressed, moderate 296.52 [facility] Psych [address], [place] [address] June, Depressive disorder, not elsewhere classified 311 [...] moderate 296.32 and Posttraumatic stress disorder 309.[address] [place] [id number] [place] [address] [phone] June, [facility] Outpatient [address] [address] June, Major depressive disorder, recurrent episode, moderate 296.32 [place] [id number] [place] [phone] June, Chronic pain syndrome 338.4 [facility] [address] [place] [phone] May, [facility] Outpatient [address] [address] May, Major depressive disorder, recurrent episode, moderate 296.32 and Posttraumatic stress disorder 309.[address] [place] [id number] [place] [address] [id number] May, HIV (human immunodeficiency virus infection) V08 ; Hyperlipidemia (Unspecified) 272.4 and Chronic pain syndrome 338.4 [place] [id number] [place] [address] [id number] Apr, Chronic pain syndrome 338.4 ; Hypertension 401.9 ; Human immunodeficiency virus [HIV] 042 and Asthma, unspecified, unspecified status 493.90 [facility] Outpatient [address] [address] Apr, Major depressive disorder, recurrent episode, moderate 296.32 [place] [id number] [place] [address] [id number] Apr, [address] [place] [address] [id number] Mar, HIV (human immunodeficiency virus infection) V08 [place] [id number] [place] [id number] Mar, [place] [id number] [place] [address] Mar, Anxiety state, unspecified 300.[address] [id number] Mar, Lumbago 724.2 ; Other dyspnea and respiratory abnormalities 786.09 ; Hypothyroidism (unspecified) 244.9 ; Esophageal reflux 530.81 ; Hypertension 401.9 ; Hyperlipidemia (Unspecified) 272.4 and Screening for unspecified condition V82.9 [place] [id number] [place] [address] [phone] Feb, [address] [id number] Feb, Lumbago 724.[address] [id number] Feb, [address] [id number] Feb, [address] [id number] Jan, Lumbago 724.2 and Other dyspnea and respiratory abnormalities 786.09 [facility] Outpatient [address] [address] Dec, Major depressive disorder, recurrent episode, moderate 296.32 and Posttraumatic stress disorder 309.[id number] [place] [address] [id number] Dec, Lumbago 724.2 ; Esophageal reflux 530.81 and Hypothyroidism (unspecified) 244.9 [facility] Psych [place] [id number] [place] [address] Dec, Anxiety state, unspecified 300.[id number] [place] [address] Nov, Anxiety state, unspecified 300.[address] [id number] [id number] Nov, Lumbago 724.2 [facility] Outpatient [address] [address] Oct, Major depressive disorder, recurrent episode, moderate 296.32 and Posttraumatic stress disorder 309.[address] [id number] [id number] Oct, [id number] [place] [address] [id number] Sep, [id number] [place] [address] [phone] Sep, Lumbago 724.2 ; Unspecified urinary incontinence 788.30 and Obstructive sleep apnea (adult) (pediatric) 327.23 [facility] Outpatient [address] [address] Sep, Major depressive disorder, recurrent episode, moderate 296.32 and Posttraumatic stress disorder 309.[address] [id number] [id number] Sep, [address] [id number] [place] [address] [phone] Sep, [id number] [place] [address] [id number] Aug, [id number] [place] [address] Jul, Bipolar I disorder, most recent episode (or current) mixed, unspecified 296.60 and Anxiety state, unspecified 300.00 [facility] Outpatient [address] [address] Jul, Major depressive disorder, recurrent episode, moderate 296.32 and Posttraumatic stress disorder 309.[address] [id number], [place] [id number] Jul, Lumbago 724.2 ; Personal history of tobacco use, presenting hazards to health V15.82 ; Memory loss 780.93 and Obstructive sleep apnea (adult) (pediatric) 327.[address] [id number], [place] [id number] Jul, [address] [id number] [place] [address] [id number] Jul, [address] [id number] June, [address] [place] [address] [id number] June, [place] [id number] [place] [address] [id number] June, Cough 786.2 [facility] Psych [place] [id number] [place] [address] June, Anxiety state, unspecified 300.00 [facility] Outpatient [address] [address] May, Major depressive disorder, recurrent episode, moderate 296.32 and Posttraumatic stress disorder 309.81 [place] [id number] [place] [address] [id number] May, Lumbago 724.2 and Other dyspnea and respiratory abnormalities 786.09 [facility] Dental [address] [place] [address] [id number] May, Unspecified dental caries 521.00 [facility] Outpatient [address] [address] Mar, Major depressive disorder, recurrent episode, moderate 296.32 and Posttraumatic stress disorder 309.81 [facility] Dental [address] [place] [id number] [place] [address] [id number] Mar, Unspecified dental caries 521.00 and Other specified periodontal diseases 523.[address] [place] [id number] [place] [address] [id number] Mar, Backache (Unspecified) 724.5 and Wheezing 786.07 [facility] Outpatient [address] [address] Mar, Major depressive disorder, recurrent episode, moderate 296.32 and Posttraumatic stress disorder 309.81 [facility] Outpatient [address] [address] Feb, Major depressive disorder, recurrent episode, moderate 296.32 and Posttraumatic stress disorder 309.81 [facility] [address] [place] [address] Feb, Major depressive disorder, recurrent episode, moderate 296.32 and 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 300.02 Outpatient Adult [address] [place] [address] Feb, Major depressive disorder, recurrent episode, moderate 296.32 and Posttraumatic stress disorder 309.81 [facility] Outpatient [address] [place] [address] Feb, Major depressive disorder, recurrent episode, moderate 296.32 and Posttraumatic stress disorder 309.81 [facility] Dental [address] [facility] [id number] [id number] Feb, Dental examination V72.2 and Periodontosis 523.5 [facility] [address] [facility] [id number] [id number] Feb, Lumbago 724.2 ; Esophageal reflux 530.81 ; Unspecified urinary incontinence 788.30 ; Constipation (Unspecified) 564.00 ; Other dyspnea and respiratory abnormalities 786.09 and Hypothyroidism (unspecified) 244.9 Outpatient Adult [address] [place] [address] Feb, Outpatient Adult [address] [place] [address] Feb, Major depressive disorder, recurrent episode, moderate 296.32 and Posttraumatic stress disorder 309.81 Outpatient Children [address] [place] [address] Feb, Major depressive disorder, recurrent episode, moderate 296.32 and Posttraumatic stress disorder 309.81 [facility] [address] [place], [place] [id number] Feb, IMMUNIZATIONS No Known Immunizations SOCIAL HISTORY [...] 10/2014 Surgical History trach 09/2014 Hospitalization History [place], [place] 09/2014
--- OUTSIDE RECORDS SUMMARY | 2018-07-08 22:47 | XMS REPORT ---
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
--- OUTSIDE RECORDS SUMMARY | 2018-07-08 22:47 | XMS REPORT ---
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 Name Role Phone Benjamin Sierra Unavailable Allergies No Known Allergies Problems Problem Type Condition Code Onset Dates Condition Status Assessment Bipolar disorder, current episode mixed, unspecified F31.60 Active Problem Bipolar disorder, current episode mixed, unspecified F31.60 Active Medications Medication Code System Code Instructions Start Date End Date Status Dosage Lexapro [facility] [address]-59 10 mg Orally Once a day in AM April 15, 2015 1/2 tablet Spironolactone [facility] [address]-32 25 MG Orally Twice a day 1 tablet [facility] [address]6557-[address]690 28-0.8 MG Orally not defined Levothyroxine Sodium [facility] [address]-50 50 MCG TAKE ONE TABLET BY MOUTH EVERY MORNING FOR EMPTY STOMACH Aspir-81 [facility] [address]-77 81 MG Orally Once a day 1 tablet Omeprazole [facility] [address]-27 20 MG Orally Once a day 1 tablet Albuterol Sulfate [facility] [address]-75 (2.5 MG/3ML) 0.083% Inhalation Three times a day Feb 25, 2012 3 ml Docusate Sodium [facility] [address]-55 100 MG Orally bid 1 capsule as needed Daliresp [facility] [address]-49 500 MCG Orally Once a day 1 tablet Nitroglycerin [facility] [address]-21 0.4 MG Sublingual every 8 hrs 1 tablet under the tongue Spiriva HandiHaler [facility] [address]-25 18 MCG Inhalation Once a day 1 capsule Advair HFA [facility] [address]-98 115-21 MCG/ACT Inhalation Twice a day 2 puffs Norvasc [facility] [address]-98 5 MG Orally Once a day 1 tablet Albuterol Sulfate HFA [facility] [address]-90 108 (90 Base) MCG/ACT Inhalation every 4 hrs 2 puffs as needed Lamictal [facility] [address]-55 25 MG Orally at bedtime July 26, 2014 1 tablet Xanax [facility] [address]-76 1 MG Orally tid prn anxiety 1 tablet Vitamin D [facility] [address]-30 1000 UNIT Orally Once a day 1 tablet Carvedilol [facility] [address]-15 25 MG Orally Twice a day Sep 28, 2013 1 tablet with food Nicotrol [facility] [address]-72 10 MG Inhalation qid 1 puff as needed Benzonatate [facility] [address]-48 200 MG Orally Three times a day Sep 28, 2013 1 capsule as needed Acetaminophen [facility] [address]-77 500 MG Orally every 6 hrs 1 capsule as needed Fish Oil [facility] [address]-19 1000 MG Orally as directed Lisinopril [facility] [address]-49 2.5 MG Orally Once a day 1 tablet Percocet [facility] [address]-73 7.5-325 MG Orally tid prn pain 1 tablet as needed Lovastatin [facility] [address]-99 40 mg Orally Once a day 1 tablet with a meal Lasix [facility] [address]-18 80 MG Orally Once a day 1 tablet Potassium Chloride [facility] [address]-20 10 MEQ Orally Once a day April 29, 2011 2 tablet Coreg [facility] [address]-97 25 MG Orally Twice a day 1 tablet Procedures Procedure Coding System Code Date PSYTX PT&/FAMILY 45 MINUTES CPT-4 25199 Nov 05, 2015 [facility] VISIT MENTAL HEALTH ESTABLISHED PATIENT CPT-4 G0470 Nov 05, 2015 Results No Known Results Summary Purpose eClinicalWorks Submission
--- OUTSIDE RECORDS SUMMARY | 2018-07-08 22:47 | XMS REPORT ---
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 Name Role Phone Jimbo Christianson CP Unavailable [...] Start Date End Date Status Dosage Aspir-81 [facility] [address]-37 81 MG Orally Once a day 1 tablet Spironolactone [facility] [address]-58 25 MG Orally Twice a day 1 tablet Potassium Chloride [facility] [address]-42 10 MEQ Orally Once a day April 29, 2011 2 tablet Spiriva HandiHaler [facility] [address]-75 18 MCG Inhalation Once a day 1 capsule Advair HFA [facility] [address]-61 115-21 MCG/ACT Inhalation Twice a day 2 puffs Fluticasone Propionate (Inhal) [facility] [address]-37 50 MCG/BLIST Inhalation Twice a day 1 puff Oxycodone-Acetaminophen [facility] [address]-20 7.5-325 MG Orally every 6 hrs 1 tablet as needed Coreg [facility] [address]-33 25 MG Orally Twice a day 1 tablet Percocet [facility] [address]-02 7.5-325 MG Orally tid prn pain 1 tablet as needed Acyclovir [facility] [address]-57 400 MG Orally Twice a day 1 tablet Polyethylene Glycol [facility] [address]-43 - not defined Benzonatate [facility] [address]-05 200 MG Orally Three times a day Sep 28, 2013 1 capsule as needed Lexapro [facility] [address]-98 10 mg Orally Once a day in AM April 15, 2015 1 tablet Torsemide [facility] [address]-65 10 MG Orally Once a day 1 tablet Amiodarone HCl [facility] [address]-96 200 MG Orally Once a day 1 tablet Xanax [facility] [address]-12 0.5 MG Orally Three times a day 1 tablet Xanax [facility] [address]-38 1 MG Orally tid prn anxiety 1 tablet Voltaren [facility] [address]-95 1 % Transdermal not defined Procedures Procedure Coding System Code Date ESTAB PT LEVEL III CPT-4 39075 Jan 17, 2016 [facility] VISIT ESTABLISHED PATIENTS CPT-4 G0467 Jan 17, 2016 Vital Signs Date/Time: Jan 17, 2016 Temperature 97.9 F Weight w/c lbs Height w/c in Pain Scale 0 0-10 Blood Pressure Diastolic 78 mm Hg Blood Pressure Systolic 108 mm Hg Results No Known Results Summary Purpose eClinicalWorks Submission
--- OUTSIDE RECORDS SUMMARY | 2018-07-08 22:47 | XMS REPORT ---
Author Benjamin Samuels [facility] eClinicalWorks Address Unknown Phone Unavailable Care Team Providers Care Door Installer Name Role Phone Benjamin Sierra Unavailable Allergies No Known Allergies Problems Problem Type Condition Code Onset Dates Condition Status Assessment Bipolar disorder, current episode mixed, unspecified F31.60 Active Problem Bipolar disorder, current episode mixed, unspecified F31.60 Active Medications Medication Code System Code Instructions Start Date End Date Status Dosage Daliresp [facility] [address]-47 500 MCG Orally Once a day 1 tablet [facility] 08[address]223 28-0.8 MG Orally not defined Acetaminophen [facility] [address]-49 500 MG Orally every 6 hrs 1 capsule as needed Levothyroxine Sodium [facility] [address]-35 50 MCG TAKE ONE TABLET BY MOUTH EVERY MORNING FOR EMPTY STOMACH Fish Oil [facility] [address]-44 1000 MG Orally as directed Advair HFA [facility] [address]-70 115-21 MCG/ACT Inhalation Twice a day 2 puffs Aspir-81 [facility] [address]-69 81 MG Orally Once a day 1 tablet Nicotrol [facility] [address]-52 10 MG Inhalation qid 1 puff as needed Vitamin D [facility] [address]-30 1000 UNIT Orally Once a day 1 tablet Xanax [facility] [address]-28 1 MG Orally tid prn anxiety 1 tablet Lisinopril [facility] [address]-50 2.5 MG Orally Once a day 1 tablet Nitroglycerin [facility] [address]-96 0.4 MG Sublingual every 8 hrs 1 tablet under the tongue Albuterol Sulfate A [facility] [address]-43 108 (90 Base) MCG/ACT Inhalation every 4 hrs 2 puffs as needed Albuterol Sulfate [facility] [address]-42 (2.5 MG/3ML) 0.083% Inhalation Three times a day Feb 25, 2012 3 ml Lamictal [facility] [address]-76 25 MG Orally at bedtime July 26, 2014 1 tablet Docusate Sodium [facility] [address]-43 100 MG Orally bid 1 capsule as needed Carvedilol [facility] [address]-87 25 MG Orally Twice a day Sep 28, 2013 1 tablet with food Spiriva HandiHaler [facility] [address]-05 18 MCG Inhalation Once a day 1 capsule Benzonatate [facility] [address]-11 200 MG Orally Three times a day Sep 28, 2013 1 capsule as needed Percocet [facility] [address]-43 7.5-325 MG Orally tid prn pain 1 tablet as needed Norvasc [facility] [address]-40 5 MG Orally Once a day 1 tablet Spironolactone [facility] [address]-36 25 MG Orally Twice a day 1 tablet Lexapro [facility] [address]-20 10 mg Orally Once a day in AM April 15, 2015 1/2 tablet Omeprazole [facility] [address]-79 20 MG Orally Once a day 1 tablet Coreg [facility] [address]-95 25 MG Orally Twice a day 1 tablet Potassium Chloride [facility] [address]-07 10 MEQ Orally Once a day April 29, 2011 2 tablet Lasix [facility] [address]-13 80 MG Orally Once a day 1 tablet Lovastatin [facility] [address]-07 40 mg Orally Once a day 1 tablet with a meal Results No Known Results Summary Purpose eClinicalWorks Submission
--- OUTSIDE RECORDS SUMMARY | 2018-07-08 22:48 | XMS REPORT ---
Author Author Benjamin Sierra Organization eClinicalWorks Address Unknown Phone Unavailable Care Team Providers Care Armhole Sewer Name Role Phone Benjamin Sierra CP Unavailable Allergies No Known Allergies Problems Problem Type Condition Code Onset Dates Condition Status Assessment Bipolar disorder, current episode mixed, unspecified F31.60 Active Problem Bipolar disorder, current episode mixed, unspecified F31.60 Active Medications Medication Code System Code Instructions Start Date End Date Status Dosage Aspir-81 [facility] [address]-86 81 MG Orally Once a day 1 tablet Spiriva HandiHaler [facility] [address]-20 18 MCG Inhalation Once a day 1 capsule Benzonatate [facility] [address]-39 200 MG Orally Three times a day Sep 28, 2013 1 capsule as needed Spironolactone [facility] [address]-85 25 MG Orally Twice a day 1 tablet Xanax [facility] [address]-40 1 MG Orally tid prn anxiety 1 tablet Percocet [facility] [address]-44 7.5-325 MG Orally tid prn pain 1 tablet as needed Potassium Chloride [facility] [address]-84 10 MEQ Orally Once a day April 29, 2011 2 tablet Coreg [facility] [address]-00 25 MG Orally Twice a day 1 tablet Advair HFA [facility] [address]-43 115-21 MCG/ACT Inhalation Twice a day 2 puffs Xanax [facility] [address]-61 0.5 MG Orally tid prn anxiety 1 tablet Procedures Procedure Coding System Code Date PSYTX PT&/FAMILY 45 MINUTES CPT-4 11374 Jan 07, 2016 [facility] VISIT MENTAL HEALTH ESTABLISHED PATIENT CPT-4 G0470 Jan 07, 2016 Results No Known Results Summary Purpose eClinicalWorks Submission
--- OUTSIDE RECORDS SUMMARY | 2018-07-08 22:48 | XMS REPORT ---
Author Author Jimbo Christianson [facility] eClinicalWorks Address Unknown Phone Unavailable Care Team Providers Care Veterinary Pathologist Name Role Phone Jimbo Christianson Unavailable Allergies No Known Allergies Problems Problem Type Condition Code Onset Dates Condition Status Assessment Bipolar disorder, current episode mixed, unspecified F31.60 Active Problem Bipolar disorder, current episode mixed, unspecified F31.60 Active Medications Medication Code System Code Instructions Start Date End Date Status Dosage Advair HFA [facility] [address]-37 115-21 MCG/ACT Inhalation Twice a day 2 puffs Spiriva HandiHaler [facility] [address]-60 18 MCG Inhalation Once a day 1 capsule Lisinopril [facility] [address]-95 2.5 MG Orally Once a day 1 tablet Nitroglycerin [facility] [address]-74 0.4 MG Sublingual every 8 hrs 1 tablet under the tongue Acetaminophen [facility] [address]-01 500 MG Orally every 6 hrs 1 capsule as needed Xanax [facility] [address]-44 0.5 MG Orally tid prn anxiety 1 tablet Xanax [facility] [address]-83 1 MG Orally tid prn anxiety 1 tablet Aspir-81 [facility] [address]-80 81 MG Orally Once a day 1 tablet Lovastatin [facility] [address]-82 40 mg Orally Once a day 1 tablet with a meal Carvedilol [facility] [address]-33 25 MG Orally Twice a day Sep 28, 2013 1 tablet with food Nicotrol [facility] [address]-19 10 MG Inhalation qid 1 puff as needed Levothyroxine Sodium [facility] [address]-85 50 MCG TAKE ONE TABLET BY MOUTH EVERY MORNING FOR EMPTY STOMACH [facility] 225[address]58 28-0.8 MG Orally not defined Lamictal [facility] [address]-45 25 MG Orally at bedtime July 26, 2014 1 tablet Albuterol Sulfate A [facility] [address]-37 108 (90 Base) MCG/ACT Inhalation every 4 hrs 2 puffs as needed Albuterol Sulfate [facility] [address]-43 (2.5 MG/3ML) 0.083% Inhalation Three times a day Feb 25, 2012 3 ml Spironolactone [facility] [address]-08 25 MG Orally Twice a day 1 tablet Docusate Sodium [facility] [address]-11 100 MG Orally bid 1 capsule as needed Coreg [facility] [address]-39 25 MG Orally Twice a day 1 tablet Fish Oil [facility] [address]-57 1000 MG Orally as directed Lasix [facility] [address]-07 80 MG Orally Once a day 1 tablet Norvasc [facility] [address]-76 5 MG Orally Once a day 1 tablet Lexapro [facility] [address]-58 10 mg Orally Once a day in AM April 15, 2015 1/2 tablet Omeprazole [facility] [address]-76 20 MG Orally Once a day 1 tablet Potassium Chloride [facility] [address]-35 10 MEQ Orally Once a day April 29, 2011 2 tablet Daliresp [facility] [address]-00 500 MCG Orally Once a day 1 tablet Percocet [facility] [address]-30 7.5-325 MG Orally tid prn pain 1 tablet as needed Vitamin D [facility] [address]-61 1000 UNIT Orally Once a day 1 tablet Benzonatate [facility] [address]-77 200 MG Orally Three times a day Sep 28, 2013 1 capsule as needed Procedures Procedure Coding System Code Date ESTAB PT LEVEL IV CPT-4 62200 Nov 05, 2015 [facility] VISIT ESTABLISHED PATIENTS CPT-4 G0467 Nov 05, 2015 Vital Signs Date/Time: Nov 05, 2015 Temperature 97.9 F Weight wc lbs Height wc in Pain Scale 0 0-10 Blood Pressure Diastolic 83 mm Hg Blood Pressure Systolic 135 mm Hg Results No Known Results Summary Purpose eClinicalWorks Submission
--- OUTSIDE RECORDS SUMMARY | 2018-07-08 22:48 | XMS REPORT ---
Author Author Benjamin Sierra [facility] Address [address], [place] [id number] Care Team Providers Care Mortarman Name Role Phone Dwight, Benjamin Unavailable PROBLEMS Type Condition ICD9-CM Code [id number] Code Onset Dates Condition Status SNOMED Code Problem Bipolar disorder, current episode mixed, unspecified F31.60 Active 95213506 Assessment Bipolar disorder, current episode mixed, unspecified F31.60 Jan, Active [id number] ALLERGIES Unknown Allergies SOCIAL HISTORY No smoking [...]
--- OUTSIDE RECORDS SUMMARY | 2018-07-08 22:48 | XMS REPORT ---
Author Ezekiel Hernandez eClinicalWorks Address Unknown Phone Unavailable Care Team Providers Care Charter Coordinator Name Role Phone Ezekiel Casper CP Unavailable [...] Start Date End Date Status Dosage Acyclovir [facility] [address]-21 400 MG Orally Three times a day Active 1 tablet Percocet [facility] [address]-23 7.5-325 MG Orally tid prn pain Active 1 tablet as needed Coreg [facility] [address]-40 25 mg Orally Twice a day Active 1/2 tablet Lisinopril [facility] [address]-45 20 MG Orally Once a day Active 1 tablet Diflucan [facility] [address]-18 200 MG Orally Once a day August 19, 2011 Active 1 tablet Levothyroxine Sodium [facility] [address]-49 50 MCG Active TAKE ONE TABLET BY MOUTH EVERY MORNING FOR EMPTY STOMACH PredniSONE [facility] [address]-87 20 mg Orally Once a day Feb 25, 2012 Active 1 tablet with food or milk Omeprazole [facility] [address]-72 20 MG Orally Once a day Active 1 tablet Fish Oil [facility] [address]-36 1000 MG Orally Active as directed Seroquel [facility] [address]-44 50 mg Orally at bedtime Dec 08, 2012 Active 1 tablet Celebrex [facility] [address]-52 200 MG Orally Once a day August 18, 2011 Active 1 capsule Lovastatin [facility] [address]-10 40 mg Orally Once a day Active 1 tablet with a meal Albuterol Sulfate [facility] [address]-68 (2.5 MG/3ML) 0.083% Inhalation Three times a day Feb 25, 2012 Active 3 ml Levofloxacin [facility] [address]-17 750 MG Orally Once a day Feb 25, 2012 Active 1 tablet Spironolactone [facility] [address]-38 25 MG Orally Twice a day Active 1 tablet Norvasc [facility] [address]-24 5 MG Orally Once a day Active 1 tablet Levalbuterol HCl [facility] [address]-39 0.63 MG/3ML Inhalation Three times a day August 18, 2011 Active 3 ml Ipratropium [place] [facility] [address]-95 0.02 % Inhalation Twice a day Feb 25, 2012 Active 1 vial Nitroglycerin [facility] [address]-25 0.4 MG Sublingual every 8 hrs Active 1 tablet under the tongue Albuterol Sulfate HFA [facility] [address]-80 108 (90 Base) MCG/ACT Inhalation every 4 hrs Active 2 puffs as needed Aspir-81 [facility] [address]-52 81 MG Orally Once a day Active 1 tablet Spiriva HandiHaler [facility] [address]-10 18 MCG Inhalation Once a day Active 1 capsule Vitamin D [facility] [address]-87 1000 UNIT Orally Once a day Active 1 tablet Dulcolax [facility] 26809-78619 5 MG Orally Once a day Active 1 tablet as needed for constipation Potassium Chloride [facility] [address]-84 10 MEQ Orally Once a day April 29, 2011 Active 2 tablet Xanax [facility] [address]-35 1 MG Orally tid prn agitation Active 1 tablet Acetaminophen [facility] [address]-10 500 MG Orally every 6 hrs Active 1 capsule as needed Lasix [facility] [address]-37 80 mg Orally Once a day Active 1 tablet Procedures Procedure Coding System Code Date ESTABPT LEVEL III CPT-4 37139 May 04, 2013 Results No Known Results Summary Purpose eClinicalWorks Submission
--- NOTE | 2018-07-08 23:14 | NUR ---
i called lab to do peripherel stick for more labs.
[2018-07-08 23:21] LABS: BASOPHILS % (AUTO) 0 % (0-10); EOSINOPHILS % (AUTO) 0 % (0-10); HEMATOCRIT 39 % (35-52); HEMOGLOBIN 12.8 G/DL (11.5-16.0); LYMPHOCYTES # (AUTO) 2.1 X 10^3 (1.0-4.0); LYMPHOCYTES % (AUTO) 15 % (12-44); MEAN CORPUSCULAR HEMOGLOBIN 26 PG (25-34); MEAN CORPUSCULAR HGB CONC 33 G/DL (32-36); MEAN CORPUSCULAR VOLUME 81 FL (80-99); MEAN PLATELET VOLUME 10.2 FL (7.4-10.4); MONOCYTES # (AUTO) 0.8 X 10^3 (0.0-1.0); MONOCYTES % (AUTO) 5 % (0-12); NEUTROPHILS # (AUTO) 11.6 X 10^3 (1.8-7.8); NEUTROPHILS % (AUTO) 80 % (42-75); PLATELET COUNT 256 10^3/uL (130-400); RED CELL DISTRIBUTION WIDTH 15.2 % (10.0-14.5); WHITE BLOOD COUNT 14.5 10^3/uL (4.3-11.0)
--- NOTE | 2018-07-08 23:25 | NUR ---
before another nurse pritesh got iv i missed x 2. pt shows you whre to go. small veins that roll.
[2018-07-08 23:34] LABS: INR 1.2 (0.8-1.4)
[2018-07-08 23:43] LABS: ALANINE AMINOTRANSFERASE 13 U/L (0-55); ALBUMIN 4.6 GM/DL (3.2-4.5); ALKALINE PHOSPHATASE 153 U/L (40-136); BILIRUBIN,TOTAL 0.3 MG/DL (0.1-1.0); BUN/CREATININE RATIO 17; CALCIUM 10.1 MG/DL (8.5-10.1); CARBON DIOXIDE 19 MMOL/L (21-32); CHLORIDE 102 MMOL/L (98-107); CREATININE SERUM 1.37 MG/DL (0.60-1.30); GFR ESTIMATED 47; GLUCOSE 176 MG/DL (70-105); POTASSIUM 5.1 MMOL/L (3.6-5.0); SODIUM 137 MMOL/L (135-145); TOTAL PROTEIN 7.5 GM/DL (6.4-8.2)
[2018-07-09] MEDS ORDERED: KETOROLAC 30 MG/ML VIAL IVP ONE
[2018-07-09] MEDS ORDERED: methylPREDNISolone 125 MG (Solu-MEDROL) VIAL IVP ONE
[2018-07-09] MEDS ORDERED: cefTRIAXone FOR IV USE 1,000 MG in WATER (STERILE) FOR INJECTION 10 ML IV ONE ×2
[2018-07-09 00:03] LABS: TSH (THYROID ANALYZER) 0.27 UIU/ML (0.35-4.94)
[2018-07-09] MEDS ORDERED: AZIT500T PO (00:16)
[2018-07-09] MEDS ORDERED: PRED5TAB PO (00:16)
[2018-07-09] MEDS ORDERED: CEFD300C3 PO (00:16)
[2018-07-09] MEDS ORDERED: BENZ100C18 PO (00:16)
[2018-07-09] MEDS ORDERED: GUAI1TBM19 PO (00:16)
--- NOTE | 2018-07-09 00:17 | ED Respiratory ---
General Chief Complaint: Respiratory Problems Stated Complaint: SOB Nursing Triage Note: pt at [place] [facility] last noc. for same c/o here. dyspnea Allergies and Home Medications Allergies Coded Allergies: No Allergy Information Available (Unverified , 07/09/18) Home Medications Azithromycin 500 Mg Tablet, 500 MG PO DAILY FOR INFECTION Prescribed by: CECILIO OTT on 07/09/1815 Benzonatate 100 Mg Capsule, 1-2 TAB PO TID Prescribed by: CECILIO OTT on 07/09/1815 Cefdinir 300 Mg Capsule, 300 MG PO BID Prescribed by: CECILIO OTT on 07/09/1815 Guaifenesin/Dextromethorphan 1 Each Tbmp.12hr, 1 EACH PO BID Prescribed by: CECILIO OTT on 07/09/1815 Prednisone 5 Mg Tablet, 5 MG PO UD 12 PILLS DAY 1, THEN DECREASE BY 1 PILL A DAY UNTIL GONE Prescribed by: CECILIO OTT on 07/09/1815 Past Oyujhsn-Bentea-Wngnnz Hx Patient Social History Alcohol Use: Denies Use Recreational Drug Use: No Smoking Status: Current Everyday Smoker Recent Foreign Travel: No Contact w/Someone Who Travel: No Recent Infectious Disease Expo: No Recent Hopitalizations: No Physical Abuse: No Sexual Abuse: No Physical Exam Vital Signs - First Documented 07/08/18 22:31 Temp 97.2 Pulse 86 Resp 20 B/P (MAP) 137/92 (107) Pulse Ox 98 O2 Delivery Room Air Capillary Refill : Less Than 3 Seconds Height: 5'7.00" Weight: 180lbs. oz. 81.531475qd; BMI Method:Stated Focused Exam Lactate Level 07/08/18 23:27: Lactic Acid Level 2.36*H Lactic Acid Level Laboratory Tests Test 07/08/18 23:27 Lactic Acid Level 2.36 MMOL/L (0.50-2.00) *H Progress/Results/Core Measures Suspected Sepsis Recent Fever Within 48 Hours: No Infection Criteria Present: None New/Unexplained Altered Menta: No Sepsis Screen: No Definite Risk SIRS Temperature:97.2 Pulse: 86 Respiratory Rate: 20 Laboratory Tests 07/08/18 23:14: White Blood Count 14.5H Blood Pressure 137 /92 Mean: 107 07/08/18 23:27: Lactic Acid Level 2.36*H Laboratory Tests 07/08/18 23:14: Creatinine 1.37H, INR Comment 1.2, Platelet Count 256, Total Bilirubin 0.3 Results/Orders Lab Results Laboratory Tests Test 07/08/18 23:14 07/08/18 23:27 Range/Units White Blood Count 14.5 H 4.3-11.0 10^3/uL Red Blood Count 4.84 4.35-5.85 10^6/uL Hemoglobin 12.8 11.5-16.0 G/DL Hematocrit 39 35-52 % Mean Corpuscular Volume 81 80-99 FL Mean Corpuscular Hemoglobin 26 25-34 PG Mean Corpuscular Hemoglobin Concent 33 32-36 G/DL Red Cell Distribution Width 15.2 H 10.0-14.5 % Platelet Count 256 130-400 10^3/uL Mean Platelet Volume 10.2 7.4-10.4 FL Neutrophils (%) (Auto) 80 H 42-75 % Lymphocytes (%) (Auto) 15 12-44 % Monocytes (%) (Auto) 5 0-12 % Eosinophils (%) (Auto) 0 0-10 % Basophils (%) (Auto) 0 0-10 % Neutrophils # (Auto) 11.6 H 1.8-7.8 X 10^3 Lymphocytes # (Auto) 2.1 1.0-4.0 X 10^3 Monocytes # (Auto) 0.8 0.0-1.0 X 10^3 Eosinophils # (Auto) 0.0 0.0-0.3 10^3/uL Basophils # (Auto) 0.0 0.0-0.1 10^3/uL Prothrombin Time 16.0 H 12.2-14.7 SEC INR Comment 1.2 0.8-1.4 Activated Partial Thromboplast Time 31 24-35 SEC Sodium Level 137 135-145 MMOL/L Potassium Level 5.1 H 3.6-5.0 MMOL/L Chloride Level 102 98-107 MMOL/L Carbon Dioxide Level 19 L 21-32 MMOL/L Anion Gap 16 H 5-14 MMOL/L Blood Urea Nitrogen 23 H 7-18 MG/DL Creatinine 1.37 H 0.60-1.30 MG/DL Estimat Glomerular Filtration Rate 47 BUN/Creatinine Ratio 17 Glucose Level 176 H 70-105 MG/DL Calcium Level 10.1 8.5-10.1 MG/DL Corrected Calcium 8.5-10.1 MG/DL Magnesium Level 2.0 1.8-2.4 MG/DL Total Bilirubin 0.3 0.1-1.0 MG/DL Aspartate Amino Transf (AST/SGOT) 20 5-34 U/L Alanine Aminotransferase (ALT/SGPT) 13 0-55 U/L Alkaline Phosphatase 153 H 40-136 U/L Troponin I < 0.028 <0.028 NG/ML B-Type Natriuretic Peptide 260.0 H <100.0 PG/ML Total Protein 7.5 6.4-8.2 GM/DL Albumin 4.6 H 3.2-4.5 GM/DL TSH [place] Testing 0.27 L 0.35-4.94 UIU/ML Lactic Acid Level 2.36 *H 0.50-2.00 MMOL/L My Orders Orders - CECILIO OTT DO Ed Iv/Invasive Line Start (07/08/18 22:40) Ekg Tracing (07/08/18 22:40) O2 (07/08/18 22:40) Monitor-Rhythm Ecg Trace Only (07/08/18 22:40) Chest 1 View, Ap/Pa Only (07/08/18 22:40) BNP (07/08/18 22:40) Cbc With Automated Diff (07/08/18 22:40) Comprehensive Metabolic Panel (07/08/18 22:40) Lactic Acid Analyzer (07/08/18 22:40) Magnesium (07/08/18 22:40) Protime With Inr (07/08/18 22:40) Partial Thromboplastin Time (07/08/18 22:40) Thyroid Analyzer (07/08/18 22:40) Troponin I (07/08/18 22:40) Blood Culture (07/08/18 22:40) Ekg Tracing (07/08/18 23:52) Ceftriaxone For Iv Use (Rocephin For I (07/09/18 00:00) Ketorolac Injection (Toradol Injection) (07/09/18 00:00) Methylprednisolone Sod Succ (Solu-Medrol (07/09/18 00:00) Free T4 (Free Thyroxine) (07/08/18 23:14) Vital Signs/I&O 07/08/18 22:31 Temp 97.2 Pulse 86 Resp 20 B/P (MAP) 137/92 (107) Pulse Ox 98 O2 Delivery Room Air Capillary Refill : Less Than 3 Seconds Blood Pressure Mean: 107 Departure Impression Primary Impression: COPD exacerbation Additional Impressions: History of CHF (congestive heart failure) Acute exacerbation of chronic bronchitis Disposition: HOME, SELF-CARE Condition: Improved Departure-Patient Inst. Referrals: NO,LOCAL PHYSICIAN (PCP/Family) Primary Care Physician Patient Instructions: Exacerbation of COPD (DC), Acute Bronchitis, Adult (DC) Add. Discharge Instructions: CONTINUE YOUR REGULAR MEDICATIONS PRESCRIBED, INCLUDING YOUR INHALERS AND OXYGEN KEEP YOUR APPOINTMENT WITH YOUR MARKER SHIPMENTS ON WEDNESDAY RETURN TO ER IF WORSE All discharge instructions reviewed with patient and/or family. Voiced understanding. Scripts Azithromycin (Zithromax) 500 Mg Tablet 500 MG PO DAILY, #5 TAB FOR INFECTION Prov: CECILIO OTT DO 07/09/18 Benzonatate (TESSALON PERLES) 100 Mg Capsule 1-2 TAB PO TID for Cough, #30 CAP Prov: CECILIO OTT DO 07/09/18 Guaifenesin/Dextromethorphan (Mucinex Dm ER 1,200-60 mg Tab) 1 Each Tbmp.12hr 1 EACH PO BID for 10 Days, #20 EA Prov: CECILIO OTT DO 07/09/18 Prednisone (Prednisone) 5 Mg Tablet 5 MG PO UD, #78 TAB 12 PILLS DAY 1, THEN DECREASE BY 1 PILL A DAY UNTIL GONE Prov: CECILIO OTT DO 07/09/18 Cefdinir (Cefdinir) 300 Mg Capsule 300 MG PO BID for FOR INFECTION, #20 CAP Prov: CECILIO OTT DO 07/09/18 CECILIO OTT DO Jul 09, 2018 00:17
[2018-07-09] MEDS ORDERED: methylPREDNISolone 125 MG (Solu-MEDROL) VIAL ONE (00:28)
[2018-07-09] MEDS ORDERED: WATER (STERILE) FOR INJECTION 10 ML ONE (00:28)
[2018-07-09] MEDS ORDERED: cefTRIAXone 1,000 MG IV (ROCEPHIN) VIAL ONE (00:28)
[2018-07-09] MEDS ORDERED: KETOROLAC 30 MG/ML VIAL ONE (00:28)
--- NOTE | 2018-07-09 00:41 | NUR ---
another nurse is giving meds and i think will d/c pt.
[2018-07-09 00:45] LABS: FREE T4 (FREE THYROXINE) 1.02 NG/DL (0.70-1.48)
--- NOTE | 2018-07-09 01:04 | NUR ---
someobody else d/c pt. i am merely doing the computer part. looks like they did d/c vs.
[2018-07-09 03:46] VITALS: BP 138/42
--- NOTE | 2018-07-09 05:28 | Diagnostic Imaging Report ---
EXAMINATION: Portable erect AP chest at 1101 on the INDICATION: Respiratory distress The heart is mildly enlarged but the heart does seem less prominent than noted on the exam performed earlier today at 12:47 AM. The density in the right lung base noted on the previous study is also less conspicuous. There is little, if any, residual density still present. The lungs are otherwise generally clear. The mediastinum is not widened. The osseous structures are intact. The left-sided defibrillator device seen previously remains in good position. IMPRESSION: The appearance of the chest has improved since the prior exam as the heart has decreased in size and the right lung base does seem much better aerated. A followup exam would be recommended for continued evaluation. Dictated by: Dictated on workstation # [id number]
== END 2018-07-09 01:06 | disposition home or self-care (01) ==
LOC: ER 22:40 → MERGE 22:40 → ER 07-09 01:06
DX: J44.1 Chronic obstructive pulmonary disease with (acute) exacerbation (principal); J44.0 Chronic obstructive pulmonary disease with (acute) lower respiratory infection; J20.9 Acute bronchitis, unspecified; I50.9 Heart failure, unspecified; F17.200 Nicotine dependence, unspecified, uncomplicated; Z79.52 Long term (current) use of systemic steroids
CPT/HCPCS: 36415; 71045; 80053; 83605; 83735; 83880; 84439; 84443; 84484; 85025; 85610; 85730; 87040; 93005; 96374; 96375

== ENCOUNTER 2018-09-17 08:00 | Emergency (ER) | payer MEDICARE, MEDICAID ==
[~2018-09-17] VITALS: Ht 170.2 cm; Wt 81.6 kg
[~2018-09-17 08:00] MED LIST changes: +AZIT500T PO; +BENZ100C18 PO; +CEFD300C3 PO; +GUAI1TBM19 PO; +PRED5TAB PO
--- OUTSIDE RECORDS SUMMARY | 2018-09-17 08:06 | XMS REPORT ---
Author Author Jimbo Christianson Organization [facility] Address [address] [place] [address] Care Team Providers Care Web Marketing Strategist Name Role Phone Jimbo Christianson Unavailable PROBLEMS Type Condition ICD9-CM Code MEI58-XE Code Onset Dates Condition Status SNOMED Code Problem Chronic apical periodontitis K04.5 Active 2886512 Problem Nicotine use disorder F17.200 Active 872869479 Problem Bipolar disorder, current episode mixed, unspecified F31.60 Active 65370841 Problem 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 F41.1 Active 78542019 Problem Gingivitis K05.10 Active 07355386 ALLERGIES Substance Reaction Event Type Date Status morphine Unknown Drug Allergy June, Active Iodine Unknown Drug Allergy June, Active Adhesive Tape Rash Non Drug Allergy June, Active ENCOUNTERS Encounter Location Date Diagnosis [facility] [address] [place] [id number] [place] [phone] Sep, [facility] [address] [place] [address] June, 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 F41.1 [facility] [address] [place] [id number] [place] [address] Mar, 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 F41.1 and Nicotine use disorder F17.200 [facility] [address] [place] [id number] [place] [phone] Dec, 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 F41.1 [facility] [address] [place] [address] Sep, 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 F41.1 [facility] [address] [place] [id number] [place] [phone] June, 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 F41.1 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 [address] [place] [address] June, [facility] [address] [place] [address] [place] [address] Mar, 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 F41.1 [facility] [address] [place] [address] Mar, [facility] [address] [place] [address] Dec, 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 F41.[address] [place] [id number] Oct, Dental [address] [place] [id number] Oct, Encounter for dental examination Z01.20 ; Dental caries extending into dentin K02.62 ; Chronic apical periodontitis K04.5 ; Periodontosis K05.4 and Gingivitis K05.10 Outpatient Adult [address] [place] [address] Oct, [facility] [address] [place] [address] Sep, 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 F41.1 Outpatient Adult [address] [place] [address] May, [facility] [address] [place] [address] May, Bipolar disorder, current episode mixed, unspecified F31.60 [facility] [address] [place] [address] Feb, [facility] [address] [place] [address] Jan, Bipolar disorder, current episode mixed, unspecified F31.60 Outpatient Adult [address] [place] [address] Jan, Bipolar disorder, current episode mixed, unspecified F31.60 Outpatient Adult [address] [place] [address] Dec, Bipolar disorder, current episode mixed, unspecified F31.60 Outpatient Adult [address] [place] [address] Nov, Bipolar disorder, current episode mixed, unspecified F31.60 [facility] [address] [place] [id number] Nov, [facility] [address] [place] [id number] [place] [phone] Oct, Bipolar disorder, current episode mixed, unspecified F31.60 Outpatient Adult [address] [place] [address] Oct, Bipolar disorder, current episode mixed, unspecified F31.60 Outpatient Adult [address] [place] [address] Sep, Bipolar disorder, current episode mixed, unspecified F31.60 [facility] [address] [place] [id number] [place] [address] Apr, Bipolar disorder, current episode mixed, unspecified F31.60 [facility] [address] [place] [address] Apr, Intake Services [address] [place] [address] Apr, [facility] [address] [place] [address] Apr, Bipolar disorder, current episode mixed, unspecified F31.60 and Anxiety F41.9 Outpatient Adult [address] [place] [address] Apr, Bipolar disorder, current episode mixed, unspecified F31.60 and Post-traumatic stress disorder, chronic F43.12 Outpatient Adult [address] [place] [address] Feb, Bipolar disorder, current episode mixed, unspecified F31.60 and Post-traumatic stress disorder, chronic F43.12 Outpatient Adult [address] [place] [address] Sep, Bipolar affective, mixed 296.60 and Posttraumatic stress disorder 309.81 [facility] [address] [place] [id number] [place] [address] Sep, Bipolar affective, mixed 296.60 and Anxiety disorder 300.00 [facility] [address] [place] [id number] [place] [address] Jul, Bipolar affective, mixed 296.60 and Anxiety disorder 300.00 Outpatient Adult [address] [place] [address] June, Posttraumatic stress disorder 309.81 and Bipolar affective, mixed 296.60 [facility] [address] [address] June, Outpatient Adult [address] [place] [address] June, Bipolar affective, mixed 296.60 and Posttraumatic stress disorder 309.81 [facility] Outpatient [address] [address] Jan, Bipolar affective, mixed 296.60 and Posttraumatic stress disorder 309.81 [facility] Psych [place] [id number] [place] [address] Jan, Bipolar affective, mixed 296.60 and Posttraumatic stress disorder 309.81 [facility] Outpatient [address] [address] Dec, Bipolar affective, mixed 296.60 and Posttraumatic stress disorder 309.81 [facility] Outpatient [address] [address] Nov, Bipolar affective, mixed 296.60 and Posttraumatic stress disorder 309.[address] [place] [id number] Nov, Cardiomyopathy 425.4 ; Bipolar affective, mixed 296.60 ; COPD (chronic obstructive pulmonary disease) 496 and Chronic back pain greater than 3 months duration 724.[address] [place] [id number] Oct, [facility] Outpatient [address] [address] Oct, Bipolar affective, mixed 296.60 and Posttraumatic stress disorder 309.81 [facility] [address] [address] Sep, Bipolar affective, mixed 296.60 and Posttraumatic stress disorder 309.81 Outpatient Adult [address] [place] [address] Sep, Bipolar affective, mixed 296.60 and Posttraumatic stress disorder 309.81 [facility] Outpatient [address] [address] June, Bipolar affective, mixed 296.60 and Posttraumatic stress disorder 309.81 [facility] Psych [address], [place] [address] Apr, Bipolar affective, mixed 296.60 ; Posttraumatic stress disorder 309.81 and Insomnia, unspecified 780.52 Outpatient Adult [address] [place] [address] Dec, Bipolar affective, mixed 296.60 and Posttraumatic stress disorder 309.81 [facility] [address] [place] [address] Nov, Bipolar affective, mixed 296.60 ; Posttraumatic stress disorder 309.81 ; Hypertension 401.9 ; Hyperlipidemia (Unspecified) 272.4 ; Coronary atherosclerosis due to calcified coronary lesion 414.4 ; Asthma, unspecified, unspecified status 493.90 ; Chronic pain syndrome 338.4 ; Hypothyroidism (unspecified) 244.9 ; Insomnia, unspecified 780.52 and tobacco use disorder 305.1 [facility] [address] [place] [id number] Nov, [facility] [address] [place] [address] [id number] Nov, Presbyopia 367.4 [facility] [address] [place] [id number] [place] [address] Nov, [facility] [address] [place] [address] [id number] Nov, Outpatient Adult [address] [place] [address] Oct, Bipolar affective, mixed 296.60 and Posttraumatic stress disorder 309.81 [facility] [address] [place] [id number] [place] [address] Sep, Bipolar affective, mixed 296.60 ; Posttraumatic stress disorder 309.81 ; Hypertension 401.9 ; Hyperlipidemia (Unspecified) 272.4 ; Coronary atherosclerosis due to calcified coronary lesion 414.4 ; Asthma, unspecified, unspecified status 493.90 ; Chronic pain syndrome 338.4 ; Hypothyroidism (unspecified) 244.9 ; Insomnia, unspecified 780.52 and tobacco use disorder 305.1 [facility] [address] [place] [address] May, Bipolar affective, mixed 296.60 ; Posttraumatic stress disorder 309.81 ; Hypertension 401.9 ; Hyperlipidemia (Unspecified) 272.4 ; Coronary atherosclerosis due to calcified coronary lesion 414.4 ; Asthma, unspecified, unspecified status 493.90 ; Chronic pain syndrome 338.4 ; Hypothyroidism (unspecified) 244.9 ; Insomnia, unspecified 780.52 ; tobacco use disorder 305.1 and Bipolar I disorder, most re cent episode (or current) mixed, unspecified 296.60 [facility] Outpatient [address] [address] May, Bipolar affective, mixed 296.60 and Posttraumatic stress disorder 309.81 [facility] Outpatient [address] [address] Apr, Bipolar I disorder, most recent episode (or current) mixed, unspecified 296.60 [facility] [address] [place] [phone] Mar, [facility] Psych [address] [id number] [address] Feb, Bipolar affective, mixed 296.60 ; Posttraumatic stress disorder 309.81 ; Hypertension 401.9 ; Hyperlipidemia (Unspecified) 272.4 ; Coronary atherosclerosis due to calcified coronary lesion 414.4 ; Asthma, unspecified, unspecified status 493.90 ; Chronic pain syndrome 338.4 ; Hypothyroidism (unspecified) 244.9 ; Insomnia, unspecified 780.52 and tobacco use disorder 305.[address] [id number] [id number] Feb, Pneumonia 486 [facility] Outpatient [address] [address] Sep, Bipolar I disorder, most recent episode (or current) mixed, unspecified 296.[address] [id number] [id number] Sep, Hyperlipidemia (Unspecified) 272.4 and Congestive heart failure 428.[address] [id number] [id number] Aug, [address] [id number], [place] [address] Aug, Bipolar affective, mixed 296.60 ; Posttraumatic stress disorder 309.81 ; Hypertension 401.9 ; Hyperlipidemia (Unspecified) 272.4 ; Coronary atherosclerosis due to calcified coronary lesion 414.4 ; Asthma, unspecified, unspecified status 493.90 ; Chronic pain syndrome 338.4 ; Hypothyroidism (unspecified) 244.9 ; Insomnia, unspecified 780.52 and tobacco use disorder 305.[address] [id number] [id number] Aug, [facility] Outpatient [address] [address] Aug, Major depressive disorder, recurrent episode, moderate 296.32 [address] [place] [address] [id number] Aug, Chronic pain syndrome 338.4 ; Asthma, unspecified, unspecified status 493.90 ; Hypothyroidism (unspecified) 244.9 ; Renal failure 586 ; Hyperlipidemia (Unspecified) 272.4 and Screening for HIV (human immunodeficiency virus) V73.89 [facility] [address] [place] [address] [place] [address] Jul, Major depressive disorder, recurrent episode, moderate 296.32 Outpatient Adult [address] [place] [address] Jul, Major depressive disorder, recurrent episode, moderate 296.32 Outpatient Adult [address] [place] [address] Jul, Major depressive disorder, recurrent episode, moderate 296.32 [facility] [address] [place] [address] [place] [address] Jul, Bipolar affective disorder, currently depressed, moderate 296.52 N [facility] [place] [id number] [place] [address] June, Depressive disorder, not elsewhere classified 311 [...] moderate 296.32 and Posttraumatic stress disorder 309.[address] [place] [address] [id number] June, [facility] Outpatient [address] [address] June, Major depressive disorder, recurrent episode, moderate 296.[id number] [place] [address] [id number] June, Chronic pain syndrome 338.[address] [place] [id number] May, [facility] Outpatient [address] [address] May, Major depressive disorder, recurrent episode, moderate 296.32 and Posttraumatic stress disorder 309.81 [place] [id number] [place] [address] [id number] May, HIV (human immunodeficiency virus infection) V08 ; Hyperlipidemia (Unspecified) 272.4 and Chronic pain syndrome 338.[address] [id number] Apr, Chronic pain syndrome 338.4 ; Hypertension 401.9 ; Human immunodeficiency virus [HIV] 042 and Asthma, unspecified, unspecified status 493.90 [facility] Outpatient [address] [address] Apr, Major depressive disorder, recurrent episode, moderate 296.32 [place] [id number] [place] [address] [id number] Apr, [address] [id number] Mar, HIV (human immunodeficiency virus infection) V08 [place] [id number] [place] [address] [id number] Mar, [place] [id number] [place] [address] Mar, Anxiety state, unspecified 300.00 [place] [id number] [place] [address] [id number] Mar, Lumbago 724.2 ; Other dyspnea and respiratory abnormalities 786.09 ; Hypothyroidism (unspecified) 244.9 ; Esophageal reflux 530.81 ; Hypertension 401.9 ; Hyperlipidemia (Unspecified) 272.4 and Screening for unspecified condition V82.[address] [id number] Feb, [place] [id number] [place] [address] [id number] Feb, Lumbago 724.2 [place] [id number] [place] [address] [id number] Feb, [place] [id number] Feb, [id number] [place] [address] [id number] Jan, Lumbago 724.2 and Other dyspnea and respiratory abnormalities 786.09 [facility] Outpatient [address] [address] Dec, Major depressive disorder, recurrent episode, moderate 296.32 and Posttraumatic stress disorder 309.[id number] [id number] Dec, Lumbago 724.2 ; Esophageal reflux 530.81 and Hypothyroidism (unspecified) 244.9 [facility] Psych [id number] [place] [address] Dec, Anxiety state, unspecified 300.00 [facility] Psych [id number] [place] [address] Nov, Anxiety state, unspecified 300.[id number] [place] [address] [id number] Nov, Lumbago 724.2 [facility] Outpatient [address] [address] Oct, Major depressive disorder, recurrent episode, moderate 296.32 and Posttraumatic stress disorder 309.[address] [id number] [id number] Oct, [address] [id number] [place] [address] [id number] Sep, [id number] [place] [address] [id number] Sep, Lumbago 724.2 ; Unspecified urinary incontinence 788.30 and Obstructive sleep apnea (adult) (pediatric) 327.23 [facility] Outpatient [address] [address] Sep, Major depressive disorder, recurrent episode, moderate 296.32 and Posttraumatic stress disorder 309.[address] [id number][place] [id number] Sep, [address] [id number], [place] [id number] Sep, [address] [id number], [place] [id number] Aug, [facility] Psych [address] [facility] [id number], [place] [address] Jul, Bipolar I disorder, most recent episode (or current) mixed, unspecified 296.60 and Anxiety state, unspecified 300.00 [facility] Outpatient [address] [address] Jul, Major depressive disorder, recurrent episode, moderate 296.32 and Posttraumatic stress disorder 309.[id number] [place] [address] [id number] Jul, Lumbago 724.2 ; Personal history of tobacco use, presenting hazards to health V15.82 ; Memory loss 780.93 and Obstructive sleep apnea (adult) (pediatric) 327.[id number] [place] [address] [id number] Jul, [address] [id number][place] [id number] Jul, [id number] [place] [address] [id number] June, [address] [id number], [place] [id number] June, [address] [id number] [place] [address] [id number] June, Cough 786.2 [facility] Psych [address] [id number], [place] [address] June, Anxiety state, unspecified 300.00 [facility] Outpatient [address] [address] May, Major depressive disorder, recurrent episode, moderate 296.32 and Posttraumatic stress disorder 309.[address] [id number], [place] [id number] May, Lumbago 724.2 and Other dyspnea and respiratory abnormalities 786.09 [facility] Dental [address] [place] [address] [id number], [place] [id number] May, Unspecified dental caries 521.00 [facility] Outpatient [address] [address] Mar, Major depressive disorder, recurrent episode, moderate 296.32 and Posttraumatic stress disorder 309.81 [facility] Dental [address] [id number] [id number] Mar, Unspecified dental caries 521.00 and Other specified periodontal diseases 523.8 [address] [id number] Mar, Backache (Unspecified) 724.5 and Wheezing 786.07 [facility] Outpatient [address] [address] Mar, Major depressive disorder, recurrent episode, moderate 296.32 and Posttraumatic stress disorder 309.81 [facility] Outpatient [address] [address] Feb, Major depressive disorder, recurrent episode, moderate 296.32 and Posttraumatic stress disorder 309.81 [facility] [address] [place] [address] Feb, Major depressive disorder, recurrent episode, moderate 296.32 and 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 300.02 Outpatient Adult [address] [place] [address] Feb, Major depressive disorder, recurrent episode, moderate 296.32 and Posttraumatic stress disorder 309.[address] [address] Feb, Major depressive disorder, recurrent episode, moderate 296.32 and Posttraumatic stress disorder 309.81 [facility] Dental [address] [id number] [id number] Feb, Dental examination V72.2 and Periodontosis 523.5 [id number] [id number] Feb, Lumbago 724.2 ; Esophageal reflux 530.81 ; Unspecified urinary incontinence 788.30 ; Constipation (Unspecified) 564.00 ; Other dyspnea and respiratory abnormalities 786.09 and Hypothyroidism (unspecified) 244.9 Outpatient Adult [address] [place] [address] Feb, Outpatient Adult [address] [place] [address] Feb, Major depressive disorder, recurrent episode, moderate 296.32 and Posttraumatic stress disorder 309.81 [facility] [address] [place] [address] Feb, Major depressive disorder, recurrent episode, moderate 296.32 and Posttraumatic stress disorder 309.81 [facility] [address] [place], [place] [id number] Feb, IMMUNIZATIONS No Known Immunizations SOCIAL HISTORY [...] day 1 tablet 24h Active Fish Oil [place]-3 1000 MG Orally Once a day 1 [...] 10/2014 Surgical History trach 09/2014 Hospitalization History [facility], [place] 09/2014
--- OUTSIDE RECORDS SUMMARY | 2018-09-17 08:09 | XMS REPORT | Continuity of Care Document ---
Author Organization Unknown Address Unknown Phone Unavailable Allergies Active Description Code Type Severity Reaction Onset Reported/Identified Relationship to Patient Clinical Status Yes ADHESIVE TAPE-SILICONES 35017 DRUG Low Rash 08/04/2011 Yes ALBUTEROL 19832 DRUG INGREDI N/A Other 08/04/2011 Yes OPIOIDS - MORPHINE ANALOGUES 22306 Drug Class N/A NTV 08/04/2011 Yes IVP DYE IVP DYE Unknown N/A 03/31/2018 Yes No Known Drug Allergies [id number] Drug Allergy Unknown N/A 03/31/2018 Yes PLASTIC TAPE PLASTIC TAPE Unknown N/A 03/31/2018 Yes albuterol [id number] Drug Allergy Severe N/A 06/21/2018 Yes morphine [id number] Drug Allergy Mild N/A 06/21/2018 Yes No Known Drug Allergies [id number] Drug Allergy Unknown N/A 07/08/2018 Yes No Allergy Information Available [id number] Drug Allergy Unknown N/A 07/09/2018 Yes FLUTICASONE FUROATE-VILANTEROL 15127 DRUG N/A Not specifie 07/11/2018 Medications There is no data. 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 01/19/2018 Z95.810 Presence of automatic (implantable) cardiac defibrillator 03/04/2018 I25.10 Atherosclerotic heart disease of [place] coronary artery without angina pectoris 03/08/2018 I10 Essential (primary) hypertension 03/17/2018 I48.0 Paroxysmal atrial fibrillation 03/17/2018 I25.2 Old myocardial infarction 03/17/2018 Z89.511 Acquired absence of right leg below knee 03/24/2018 F17.200 Nicotine dependence, unspecified, uncomplicated 04/01/2018 MAGED RODGERS DO Ot I42.9 CARDIOMYOPATHY, [...] STATUS TO NARCOTIC AGENT STATUS 04/01/2018 MAGED RODGERS DO Ot Z88.8 ALLERGY STATUS TO OTH DRUG/MEDS/BIOL SUB 04/01/2018 MAGDE RODGERS DO Ot Z91.041 RADIOGRAPHIC DYE ALLERGY STATUS 04/01/2018 MAGED RODGERS DO Ot Z91.048 OTHER NONMEDICINAL SUBSTANCE ALLERGY STA 04/01/2018 MAGED RODGERS DO Ot Z95.810 PRESENCE OF AUTOMATIC (IMPLANTABLE) CARD 04/01/2018 I50.42 Chronic combined systolic (congestive) and diastolic (congestive) heart failure 04/01/2018 E11.9 Type 2 diabetes mellitus without complications 04/02/2018 WALESKA PEREZ J44.9 Chronic obstructive pulmonary disease, unspecified 04/06/2018 MAGED RODGERS DO Ot I42.9 CARDIOMYOPATHY, UNSPECIFIED 04/06/2018 MAGED RODGERS DO Ot I50.9 HEART FAILURE, UNSPECIFIED 04/06/2018 MAGED RODGERS DO Ot J44.9 CHRONIC OBSTRUCTIVE PULMONARY DISEASE, U 04/06/2018 MAGED RODGERS DO Ot R06.02 SHORTNESS OF BREATH 04/06/2018 MAGED RODGERS DO Ot R07.9 CHEST PAIN, UNSPECIFIED 04/06/2018 MAGED RODGERS DO Ot R79.89 OTHER SPECIFIED ABNORMAL FINDINGS OF BLO 04/06/2018 MAGED RODGERS DO Ot Z88.5 ALLERGY STATUS TO NARCOTIC AGENT STATUS 04/06/2018 MAGED RODGERS DO Ot Z88.8 ALLERGY STATUS TO OTH DRUG/MEDS/BIOL SUB 04/06/2018 MAGED RODGERS DO Ot Z91.041 RADIOGRAPHIC DYE ALLERGY STATUS 04/06/2018 MAGED RODGERS DO Ot Z91.048 OTHER NONMEDICINAL SUBSTANCE ALLERGY STA 04/06/2018 MAGED RODGERS DO Ot Z95.810 PRESENCE OF [...] J44.9 CHRONIC OBSTRUCTIVE PULMONARY DISEASE, U 04/13/2018 ASIM AKBAR MD Ot M79.604 PAIN IN RIGHT LEG 04/13/2018 ASIM AKBAR MD Ot Z88.5 ALLERGY STATUS TO NARCOTIC AGENT STATUS 04/13/2018 ASIM AKBAR MD Ot Z88.8 ALLERGY STATUS TO OTH DRUG/MEDS/BIOL SUB 04/13/2018 ASIM AKBAR MD Ot Z89.511 ACQUIRED ABSENCE OF RIGHT LEG BELOW KNEE 04/13/2018 ASIM AKBAR MD Ot Z91.041 RADIOGRAPHIC DYE ALLERGY STATUS 04/13/2018 ASIM AKBAR MD Ot Z91.048 OTHER NONMEDICINAL SUBSTANCE ALLERGY STA 04/13/2018 ASIM AKBAR MD Ot Z95.810 PRESENCE OF AUTOMATIC (IMPLANTABLE) CARD 04/14/2018 LANDA DO, KEYSHAWN Ot E11.9 TYPE 2 DIABETES MELLITUS WITHOUT COMPLIC 04/14/2018 LANDA DO, KEYSHAWN Ot G89.29 OTHER CHRONIC PAIN 04/14/2018 LANDA [...] Ot Z91.041 RADIOGRAPHIC DYE ALLERGY STATUS 04/14/2018 [place] DO, KEYSHAWN Ot Z91.048 OTHER NONMEDICINAL SUBSTANCE ALLERGY STA 04/14/2018 [place] DO, KEYSHAWN Ot Z95.810 PRESENCE OF AUTOMATIC (IMPLANTABLE) CARD 04/14/2018 [place] DO, KEYSHAWN Ot Z98.890 OTHER SPECIFIED POSTPROCEDURAL STATES 04/18/2018 LANDA DO, KEYSHAWN Ot E11.9 TYPE 2 DIABETES MELLITUS WITHOUT COMPLIC 04/18/2018 LANDA DO, KEYSHAWN Ot G89.29 OTHER CHRONIC PAIN 04/18/2018 [place] DO, KEYSHAWN Ot I25.2 OLD MYOCARDIAL INFARCTION 04/18/2018 [place] DO, KEYSHAWN Ot J44.9 CHRONIC OBSTRUCTIVE PULMONARY DISEASE, U 04/18/2018 [place] DO, KEYSHAWN Ot M79.604 PAIN IN RIGHT LEG 04/18/2018 [place] [facility] DO, KEYSHAWN Ot Z88.5 ALLERGY STATUS TO NARCOTIC AGENT STATUS 04/18/2018 [place] [facility] DO, KEYSHAWN Ot Z88.8 ALLERGY STATUS TO OTH DRUG/MEDS/BIOL SUB 04/18/2018 [place] DO, KEYSHAWN Ot Z91.041 RADIOGRAPHIC DYE ALLERGY STATUS 04/18/2018 [place] DO, KEYSHAWN Ot Z91.048 OTHER NONMEDICINAL SUBSTANCE ALLERGY STA 04/18/2018 [place] DO, KEYSHAWN Ot Z95.810 PRESENCE OF AUTOMATIC (IMPLANTABLE) CARD 04/18/2018 [place] DO, KEYSHAWN Ot Z98.890 OTHER SPECIFIED POSTPROCEDURAL STATES 04/22/2018 ANJEL JUAREZ DOED T Ot E11.9 TYPE 2 DIABETES MELLITUS WITHOUT COMPLIC 04/22/2018 ANJEL JUAREZ DOED T Ot I25.2 OLD MYOCARDIAL INFARCTION 04/22/2018 ANJEL JUAREZ DOED T Ot I48.91 UNSPECIFIED ATRIAL FIBRILLATION 04/22/2018 ANJEL JUAREZ DOED T Ot I49.3 VENTRICULAR PREMATURE DEPOLARIZATION 04/22/2018 ANJEL JUAREZ DOED T Ot I50.9 HEART FAILURE, UNSPECIFIED 04/22/2018 ANJEL JUAREZ DOED T Ot J44.9 CHRONIC OBSTRUCTIVE PULMONARY DISEASE, U 04/22/2018 ANJEL JUAREZ DOED T Ot N28.9 DISORDER OF KIDNEY AND URETER, UNSPECIFI 04/22/2018 ANJEL JUAREZ DOED T Ot R79.89 OTHER SPECIFIED ABNORMAL FINDINGS OF BLO 04/22/2018 ANJEL JUAREZ DOED T Ot Z79.01 [facility] (CURRENT) USE OF ANTICOAGULANT 04/22/2018 ANJEL JUAREZ DOED T Ot Z88.5 ALLERGY STATUS TO NARCOTIC AGENT STATUS 04/22/2018 ANJEL JUAREZ DOED T Ot Z88.8 ALLERGY STATUS TO OTH DRUG/MEDS/BIOL SUB 04/22/2018 ANJEL JUARZE DOED T Ot Z91.041 RADIOGRAPHIC DYE ALLERGY STATUS 04/22/2018 ANJEL JUAREZ DOED T Ot Z91.048 OTHER NONMEDICINAL SUBSTANCE ALLERGY STA 04/22/2018 ANJEL JUAREZ DOED T Ot Z95.810 PRESENCE OF AUTOMATIC (IMPLANTABLE) CARD 04/22/2018 ANJEL JUAREZ DOED T Ot Z99.81 DEPENDENCE ON SUPPLEMENTAL OXYGEN 05/30/2018 ANJEL JUAREZ DOED T Ot E11.9 TYPE 2 DIABETES MELLITUS WITHOUT COMPLIC 05/30/2018 ANJEL JUAREZ DOED T Ot F17.210 NICOTINE DEPENDENCE, CIGARETTES, UNCOMPL 05/30/2018 ANJEL JUAREZ DOED T Ot I25.2 OLD MYOCARDIAL INFARCTION 05/30/2018 FAIZA JUAREZ DO T Ot I48.91 UNSPECIFIED ATRIAL FIBRILLATION 05/30/2018 ANJEL JUAREZ DOED T Ot J44.9 CHRONIC OBSTRUCTIVE PULMONARY DISEASE, U 05/30/2018 ANJEL JUAREZ DOED T Ot R06.00 DYSPNEA, UNSPECIFIED 05/30/2018 ANN ASKEW FAIZA T Ot R06.02 SHORTNESS OF BREATH 05/30/2018 ANJEL JUAREZ DOED T Ot R79.89 OTHER SPECIFIED ABNORMAL FINDINGS OF BLO 05/30/2018 ANJEL JUAREZ DOED T Ot 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 05/30/2018 ANJEL JUAREZ DOED T Ot Z88.5 ALLERGY STATUS TO NARCOTIC AGENT STATUS 05/30/2018 ANJEL JUAREZ DOED T Ot Z88.8 ALLERGY STATUS TO OTH DRUG/MEDS/BIOL SUB 05/30/2018 ANJEL JUAREZ DOED T Ot Z91.041 RADIOGRAPHIC DYE ALLERGY STATUS 05/30/2018 FAIZA JUAREZ DO T Ot Z91.048 OTHER NONMEDICINAL SUBSTANCE ALLERGY STA 05/30/2018 ANJEL JUAREZ DOED T Ot Z95.810 PRESENCE OF AUTOMATIC (IMPLANTABLE) CARD 05/30/2018 FAIZA JUAREZ DO T Ot Z99.81 DEPENDENCE ON SUPPLEMENTAL OXYGEN 05/31/2018 [...] BREATH 05/31/2018 GANGA HALL MD Ot 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 05/31/2018 GANGA HALL MD Ot Z79.52 CEO [employer]OUND[employer] (CURRENT) USE OF SYSTEMIC STER 05/31/2018 GANGA [...] Ot Z99.81 DEPENDENCE ON SUPPLEMENTAL OXYGEN 06/02/2018 FAIZA JUAREZ DO T Ot E11.9 TYPE 2 DIABETES MELLITUS WITHOUT COMPLIC 06/02/2018 FAIZA JUAREZ DO T Ot F17.210 NICOTINE DEPENDENCE, CIGARETTES, UNCOMPL 06/02/2018 ANN DO, FAIZA T Ot I25.2 OLD MYOCARDIAL INFARCTION 06/02/2018 ANN ASKEW FAIZA T Ot I48.91 UNSPECIFIED ATRIAL FIBRILLATION 06/02/2018 ANN ASKEWFAIZA T Ot J44.9 CHRONIC OBSTRUCTIVE PULMONARY DISEASE, U 06/02/2018 FAIZA JUAREZ DO T Ot R06.00 DYSPNEA, UNSPECIFIED 06/02/2018 ANN ASKEWANJELED T Ot R06.02 SHORTNESS OF BREATH 06/02/2018 ANN ASKEWANJELED T Ot R79.89 OTHER SPECIFIED ABNORMAL FINDINGS OF BLO 06/02/2018 ANN ASKEWANJELED T Ot Z79.01 [facility] (CURRENT) USE OF ANTICOAGULANT 06/02/2018 ANN ASKEWANJELED T Ot Z88.5 ALLERGY STATUS TO NARCOTIC AGENT STATUS 06/02/2018 ANN ANJELED T Ot Z88.8 ALLERGY STATUS TO OTH DRUG/MEDS/BIOL SUB 06/02/2018 ANN ASKEWANJELED T Ot Z91.041 RADIOGRAPHIC DYE ALLERGY STATUS 06/02/2018 ANN ASKEWANJELED T Ot Z91.048 OTHER NONMEDICINAL SUBSTANCE ALLERGY STA 06/02/2018 ANN ASKEWANJELED T Ot Z95.810 PRESENCE OF AUTOMATIC (IMPLANTABLE) CARD 06/02/2018 ANN ASKEWANJELED T Ot Z99.81 DEPENDENCE ON SUPPLEMENTAL OXYGEN 06/02/2018 GANGA HALL MD Ot E11.9 TYPE 2 DIABETES MELLITUS WITHOUT COMPLIC 06/02/2018 GANGA HALL MD Ot F17.210 NICOTINE DEPENDENCE, CIGARETTES, UNCOMPL 06/02/2018 GANGA HALL MD Ot I25.2 OLD MYOCARDIAL INFARCTION 06/02/2018 GANGA HALL MD Ot I48.91 UNSPECIFIED ATRIAL FIBRILLATION 06/02/2018 GANGA HALL MD Ot J44.9 CHRONIC OBSTRUCTIVE PULMONARY DISEASE, U 06/02/2018 GANGA HALL MD Ot R06.02 SHORTNESS OF BREATH 06/02/2018 GANGA HALL MD Ot Z79.01 [facility] (CURRENT) USE OF ANTICOAGULANT 06/02/2018 GANGA HALL MD Ot Z79.52 [facility] (CURRENT) USE OF SYSTEMIC STER 06/02/2018 GANGA HALL MD Ot Z88.5 ALLERGY STATUS TO NARCOTIC AGENT STATUS 06/02/2018 GANGA HALL MD Ot Z88.8 ALLERGY STATUS TO OTH DRUG/MEDS/BIOL SUB 06/02/2018 GANGA HALL MD Ot Z91.041 RADIOGRAPHIC DYE ALLERGY STATUS 06/02/2018 GANGA HALL MD Ot Z91.048 OTHER NONMEDICINAL SUBSTANCE ALLERGY STA 06/02/2018 GANGA HALL MD Ot Z95.0 PRESENCE OF CARDIAC PACEMAKER 06/02/2018 GANGA HALL MD Ot Z95.810 PRESENCE OF AUTOMATIC (IMPLANTABLE) CARD 06/02/2018 GANGA HALL MD Ot Z99.81 DEPENDENCE ON SUPPLEMENTAL OXYGEN 06/21/2018 [facility], KEYSHAWN Ot E11.9 TYPE 2 DIABETES MELLITUS WITHOUT COMPLIC 06/21/2018 [place] DO, KEYSHAWN Ot I25.2 OLD MYOCARDIAL INFARCTION 06/21/2018 [place] DO, KEYSHAWN Ot I48.91 UNSPECIFIED ATRIAL FIBRILLATION 06/21/2018 [facility], KEYSHAWN Ot I49.3 VENTRICULAR PREMATURE DEPOLARIZATION 06/21/2018 [facility], KEYSHAWN Ot I50.9 HEART FAILURE, UNSPECIFIED 06/21/2018 [facility], KEYSHAWN Ot J44.9 CHRONIC OBSTRUCTIVE PULMONARY DISEASE, U 06/21/2018 [facility], KEYSHAWN Ot J96.11 CHRONIC RESPIRATORY FAILURE WITH HYPOXIA 06/21/2018 [facility], KEYSHAWN Ot R00.2 PALPITATIONS 06/21/2018 [facility], KEYSHAWN Ot R06.02 SHORTNESS OF BREATH 06/21/2018 [facility], KEYSHAWN Ot Z77.22 CNTCT W AND EXPSR TO ENVIRON TOBACCO SMO 06/21/2018 [facility], KEYSHAWN Ot Z79.52 [facility] (CURRENT) USE OF SYSTEMIC STER 06/21/2018 [facility], KEYSHAWN Ot Z88.5 ALLERGY STATUS TO NARCOTIC AGENT STATUS 06/21/2018 [place] DO, KEYSHAWN Ot Z88.8 ALLERGY STATUS TO OTH DRUG/MEDS/BIOL SUB 06/21/2018 [place] DO, KEYSHAWN Ot Z89.511 ACQUIRED ABSENCE OF RIGHT LEG BELOW KNEE 06/21/2018 [place] DO, KEYSHAWN Ot Z91.041 RADIOGRAPHIC DYE ALLERGY STATUS 06/21/2018 [place] DO, KEYSHAWN Ot Z91.048 OTHER NONMEDICINAL SUBSTANCE ALLERGY STA 06/21/2018 [place] DO, KEYSHAWN Ot Z95.810 PRESENCE OF AUTOMATIC (IMPLANTABLE) CARD 06/23/2018 LANDA DO, KEYSHAWN Ot E11.9 TYPE 2 DIABETES MELLITUS WITHOUT COMPLIC 06/23/2018 [place] DO, KEYSHAWN Ot I25.2 OLD MYOCARDIAL INFARCTION 06/23/2018 [facility], KEYSHAWN Ot I48.91 UNSPECIFIED ATRIAL FIBRILLATION 06/23/2018 [facility], KEYSHAWN Ot I49.3 VENTRICULAR PREMATURE DEPOLARIZATION 06/23/2018 [place] DO, KEYSHAWN Ot I50.9 HEART FAILURE, UNSPECIFIED 06/23/2018 [facility], KEYSHAWN Ot J44.9 CHRONIC OBSTRUCTIVE PULMONARY DISEASE, U 06/23/2018 [facility], KEYSHAWN Ot J96.11 CHRONIC RESPIRATORY FAILURE WITH HYPOXIA 06/23/2018 [facility], KEYSHAWN Ot R00.2 PALPITATIONS 06/23/2018 [facility], KEYSHAWN Ot R06.02 SHORTNESS OF BREATH 06/23/2018 [facility], KEYSHAWN Ot Z77.22 CNTCT W AND EXPSR TO ENVIRON TOBACCO SMO 06/23/2018 [facility], KEYSHAWN Ot Z79.52 [facility] (CURRENT) USE OF SYSTEMIC STER 06/23/2018 [facility], KYESHAWN Ot Z88.5 ALLERGY STATUS TO NARCOTIC AGENT STATUS 06/23/2018 [facility], KEYSHAWN Ot Z88.8 ALLERGY STATUS TO OTH DRUG/MEDS/BIOL SUB 06/23/2018 [facility], KEYSHAWN Ot Z89.511 ACQUIRED ABSENCE OF RIGHT LEG BELOW KNEE 06/23/2018 [facility], KEYSHAWN Ot Z91.041 RADIOGRAPHIC DYE ALLERGY STATUS 06/23/2018 [facility], KEYSHAWN Ot Z91.048 OTHER NONMEDICINAL SUBSTANCE ALLERGY STA 06/23/2018 [facility], KEYSHAWN Ot Z95.810 PRESENCE OF AUTOMATIC (IMPLANTABLE) CARD 06/28/2018 I25.5 Ischemic cardiomyopathy 06/28/2018 E78.5 Hyperlipidemia, unspecified 06/28/2018 F39 Unspecified mood (affective) disorder 06/28/2018 I50.42 Chronic combined systolic (congestive) and diastolic (congestive) heart failure 07/08/2018 XIN LOAIZA MD, Ot I50.9 HEART FAILURE, UNSPECIFIED 07/08/2018 XIN LOAIZA MD, Ot J44.1 CHRONIC OBSTRUCTIVE PULMONARY DISEASE W 07/08/2018 XIN LOAIZA MD, Ot R06.02 SHORTNESS OF BREATH 07/08/2018 XIN LOAIZA MD, Ot Z79.01 [facility] (CURRENT) USE OF ANTICOAGULANT 07/08/2018 XIN LOAIZA MD, Ot 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 07/08/2018 XIN LOAIZA MD, Ot Z79.82 [facility] (CURRENT) USE OF ASPIRIN 07/08/2018 XIN LOAIZA MD, Ot Z79.84 [facility] (CURRENT) USE OF ORAL HYPOGLYC 07/11/2018 XIN LOAIZA MD, Ot I50.9 HEART FAILURE, UNSPECIFIED 07/11/2018 XIN LOAIZA MD, Ot J44.1 CHRONIC OBSTRUCTIVE PULMONARY DISEASE W 07/11/2018 XIN LOAIZA MD, Ot R06.02 SHORTNESS OF BREATH 07/11/2018 XIN LOAIZA MD, Ot 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 07/11/2018 XIN LOAIZA MD, Ot 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 07/11/2018 XIN LOAIZA MD, Ot Z79.82 [facility] (CURRENT) USE OF ASPIRIN 07/11/2018 XIN LOAIZA MD, Ot Z79.84 CEO AND FOUNDER (CURRENT) USE OF ORAL HYPOGLYC 07/11/2018 313 COPD 07/11/2018 713 New patient consult 07/11/2018 J18.9 Pneumonia, unspecified organism 07/11/2018 R09.02 Hypoxemia 07/11/2018 YANETH WILKERSON R09.02 Hypoxemia 07/11/2018 Z72.0 Tobacco use 07/11/2018 YANETH WILKERSON Z72.0 Tobacco use 08/05/2018 28 Cough 08/05/2018 WALESKA PEREZ J96.12 Chronic respiratory failure with hypercapnia 08/05/2018 WALESKA PEREZ Z72.0 Tobacco use 08/05/2018 WALESKA PEREZ J96.11 Chronic respiratory failure with hypoxia 08/05/2018 YANETH WILKERSON [id number] Shortness of Breath 08/05/2018 YANETH WILKERSON [id number] Shortness of Breath 08/05/2018 YANETH WILKERSON [id number] Shortness of Breath 08/05/2018 YANETH WILKERSON [id number] Shortness of Breath 08/05/2018 YANETH WILKERSON J44.1 Chronic obstructive pulmonary disease with (acute) exacerbation 08/05/2018 YANETH WILKERSON J44.1 Chronic obstructive pulmonary disease with (acute) exacerbation 08/05/2018 YANETH WILKERSON J44.1 Chronic obstructive pulmonary disease with (acute) exacerbation 09/05/2018 Z95.9 Presence of cardiac and vascular implant and graft, unspecified Procedures Code Description Performed By Performed On [id number] CT CHEST WO CONTRAST 07/11/2018 [id number] CHEST PHYSIOTHERAPY VEST (DME) 08/05/2018 ECG1 ECG 08/05/2018 [id number] CBC AND DIFF (MANUAL DIFF IF NECESSARY) 08/05/2018 [id number] COMPREHENSIVE METABOLIC PANEL 08/05/2018 [id number] NTPROBNP 08/05/2018 [id number] PROTHROMBIN TIME/INR 08/05/2018 [id number] TROPONIN 08/05/2018 [id number] XR CHEST SINGLE VIEW FRONTAL 08/05/2018 CAR75 REMOTE ICD MONITORING 09/01/2018 Results Test Result Range Complete blood count [...] 10:03 THYROID STIMULATING HORMONE 2.07 u[iU]/mL 0.35-4.94 Complete blood count (CBC) with automated white blood cell (WBC) differential - 07/08/18 00:01 Blood leukocytes automated count (number/volume) 6.9 10*3/uL 4.3-11.0 Blood erythrocytes automated count (number/volume) 4.86 10*6/uL 4.35-5.85 Venous blood hemoglobin measurement (mass/volume) 12.3 g/dL 11.5-16.0 Blood hematocrit (volume fraction) 42 % 35-52 Automated erythrocyte mean corpuscular volume 86 [foz_us] 80-99 Automated erythrocyte mean corpuscular hemoglobin (mass per erythrocyte) 25 pg 25-34 Automated erythrocyte mean corpuscular hemoglobin concentration measurement (mass/volume) 30 g/dL 32-36 Automated erythrocyte distribution width ratio 14.6 % 10.0- 14.5 Automated blood platelet count (count/volume) 214 10*3/uL 130-400 Automated blood platelet mean volume measurement 11.0 [foz_us] 7.4-10.4 Automated blood neutrophils/100 leukocytes 71 % 42-75 Automated blood lymphocytes/100 leukocytes 26 % 12-44 Blood monocytes/100 leukocytes 3 % 0-12 Automated blood eosinophils/100 leukocytes 0 % 0-10 Automated blood basophils/100 leukocytes 0 % 0-10 Blood neutrophils automated count (number/volume) 4.9 10*3 1.8-7.8 Blood lymphocytes automated count (number/volume) 1.8 10*3 1.0-4.0 Blood monocytes automated count (number/volume) 0.2 10*3 0.0- 1.0 Automated eosinophil count 0.0 10*3/uL 0.0-0.3 Automated blood basophil count (count/volume) 0.0 10*3/uL 0.0-0.1 PROBNP FS - 07/08/18 00:01 PROBNP FS 880.0 pg/mL <75.0 Comprehensive metabolic panel - 07/08/18 00:01 Serum or plasma sodium measurement (moles/volume) 138 mmol/L 135-145 Serum or plasma potassium measurement (moles/volume) 4.6 mmol/L 3.6-5.0 Serum or plasma chloride measurement (moles/volume) 103 mmol/L 98-107 Carbon dioxide 19 mmol/L 21-32 Serum or plasma anion gap determination (moles/volume) 16 mmol/L 5-14 Serum or plasma urea nitrogen measurement (mass/volume) 16 mg/dL 7-18 Serum or plasma creatinine measurement (mass/volume) 1.18 mg/dL 0.60-1.30 Serum or plasma urea nitrogen/creatinine mass ratio 14 NRG Serum or plasma creatinine measurement with calculation of estimated glomerular filtration rate 56 NRG Serum or plasma glucose measurement (mass/volume) 212 mg/dL 70-105 Serum or plasma calcium measurement (mass/volume) 9.7 mg/dL 8.5-10.1 Serum or plasma total bilirubin measurement (mass/volume) 0.3 mg/dL 0.1-1.0 Serum or plasma alkaline phosphatase measurement (enzymatic activity/volume) 162 U/L 40-136 Serum or plasma aspartate aminotransferase measurement (enzymatic activity/volume) 14 U/L 5-34 Serum or plasma alanine aminotransferase measurement (enzymatic activity/volume) 10 U/L 0-55 Serum or plasma protein measurement (mass/volume) 7.1 g/dL 6.4-8.2 Serum or plasma albumin measurement (mass/volume) 4.4 g/dL 3.2-4.5 CALCIUM CORRECTED 9.4 mg/dL 8.5-10.1 Magnesium - 07/08/18 00:01 Magnesium 1.7 mg/dL 1.8-2.4 Complete blood count (CBC) with automated white blood cell (WBC) differential - 07/08/18 23:14 Blood leukocytes automated count (number/volume) 14.5 10*3/uL 4.3-11.0 Blood erythrocytes automated count (number/volume) 4.84 10*6/uL 4.35-5.85 Venous blood hemoglobin measurement (mass/volume) 12.8 g/dL 11.5-16.0 Blood hematocrit (volume fraction) 39 % 35-52 Automated erythrocyte mean corpuscular volume 81 [foz_us] 80-99 Automated erythrocyte mean corpuscular hemoglobin (mass per erythrocyte) 26 pg 25-34 Automated erythrocyte mean corpuscular hemoglobin concentration measurement (mass/volume) 33 g/dL 32-36 Automated erythrocyte distribution width ratio 15.2 % 10.0- 14.5 Automated blood platelet count (count/volume) 256 10*3/uL 130-400 Automated blood platelet mean volume measurement 10.2 [foz_us] 7.4-10.4 Automated blood neutrophils/100 leukocytes 80 % 42-75 Automated blood lymphocytes/100 leukocytes 15 % 12-44 Blood monocytes/100 leukocytes 5 % 0-12 Automated blood eosinophils/100 leukocytes 0 % 0-10 Automated blood basophils/100 leukocytes 0 % 0-10 Blood neutrophils automated count (number/volume) 11.6 10*3 1.8-7.8 Blood lymphocytes automated count (number/volume) 2.1 10*3 1.0-4.0 Blood monocytes automated count (number/volume) 0.8 10*3 0.0- 1.0 Automated eosinophil count 0.0 10*3/uL 0.0-0.3 Automated blood basophil count (count/volume) 0.0 10*3/uL 0.0-0.1 Comprehensive metabolic panel - 07/08/18 23:14 Serum or plasma sodium measurement (moles/volume) 137 mmol/L 135-145 Serum or plasma potassium measurement (moles/volume) 5.1 mmol/L 3.6-5.0 Serum or plasma chloride measurement (moles/volume) 102 mmol/L 98-107 Carbon dioxide 19 mmol/L 21-32 Serum or plasma anion gap determination (moles/volume) 16 mmol/L 5-14 Serum or plasma urea nitrogen measurement (mass/volume) 23 mg/dL 7-18 Serum or plasma creatinine measurement (mass/volume) 1.37 mg/dL 0.60-1.30 Serum or plasma urea nitrogen/creatinine mass ratio 17 NRG Serum or plasma creatinine measurement with calculation of estimated glomerular filtration rate 47 NRG Serum or plasma glucose measurement (mass/volume) 176 mg/dL 70-105 Serum or plasma calcium measurement (mass/volume) 10.1 mg/dL 8.5-10.1 Serum or plasma total bilirubin measurement (mass/volume) 0.3 mg/dL 0.1-1.0 Serum or plasma alkaline phosphatase measurement (enzymatic activity/volume) 153 U/L 40-136 Serum or plasma aspartate aminotransferase measurement (enzymatic activity/volume) 20 U/L 5-34 Serum or plasma alanine aminotransferase measurement (enzymatic activity/volume) 13 U/L 0-55 Serum or plasma protein measurement (mass/volume) 7.5 g/dL 6.4-8.2 Serum or plasma albumin measurement (mass/volume) 4.6 g/dL 3.2-4.5 Magnesium - 07/08/18 23:14 Magnesium 2.0 mg/dL 1.8-2.4 PT panel in platelet poor plasma by coagulation assay - 07/08/18 23:14 Prothrombin time (PT) in platelet poor plasma by coagulation assay 16.0 s 12.2-14.7 INR in platelet poor plasma or blood by coagulation assay 1.2 0.8-1.4 Activated partial thromboplastin time (aPTT) in platelet poor plasma bycoagulation assay - 07/08/18 23:14 Activated partial thromboplastin time (aPTT) in platelet poor plasma bycoagulation assay 31 s 24-35 Serum or plasma lithium measurement (moles/volume) - 07/08/18 23:14 BNP level 260.0 pg/mL <100.0 Serum or plasma troponin i.cardiac measurement (mass/volume) - 07/08/18 23:14 Serum or plasma troponin i.cardiac measurement (mass/volume) < ng/mL <0.028 Serum or plasma thyroxine (T4) free measurement (mass/volume) - 07/08/18 23:14 Serum or plasma thyroxine (T4) free measurement (mass/volume) 1.02 ng/dL 0.70-1.48 Serum or plasma thyrotropin measurement by detection limit <=0.05 miu/l (units/volume) - 07/08/18 23:14 Serum or plasma thyrotropin measurement by detection limit <=0.05 miu/l (units/volume) 0.27 u[iU]/mL 0.35-4.94 Bacterial blood culture - 07/08/18 23:20 Bacterial blood culture NG [facility] Bacterial blood culture - 07/08/18 23:20 Bacterial blood culture NG [facility] Blood lactic acid measurement (moles/volume) - 07/08/18 23:27 Blood lactic acid measurement (moles/volume) 2.36 mmol/L 0.50- 2.00 Bacterial blood culture - 07/08/18 23:27 Bacterial blood culture NG NR Bacterial blood culture - 07/08/18 23:27 Bacterial blood culture NG [facility] CBC AND DIFF (MANUAL DIFF IF NECESSARY) - 08/05/18 17:00 WBC 8.56 4.00-11.00 Hematocrit 43 36-45 Hemoglobin 13.3 12.0-15.0 MCH 26 27-34 MCHC 31 32-36 MCV 84 80-99 MPV 9.5 9.4-12.3 Platelet Count 240 140-400 RBC 5.08 4.00-5.00 RDW 15.5 11.5-14.5 NUCLEATED RBCS 0 0-0 % NEUTROPHILS 47 45-78 %LYMPHOCYTES 40 15-47 %MONOCYTES 10 0-12 %EOSINOPHILS 2 0-7 %BASOPHILS 1 0-2 % IMM GRANS 1 0-1 # GRANULOCYTES 4.04 1.70-6.80 # LYMPHOCYTES 3.46 1.00-3.30 # MONOCYTES 0.89 0.20-0.90 # EOSINOPHILS 0.13 0.00-0.40 # BASOPHILS 0.04 0.00-0.10 PROTHROMBIN TIME/INR - 08/05/18 17:00 INR 1.1 TX 0.8-1.2 Protime 14.4 11.4-15.0 COMPREHENSIVE METABOLIC PANEL - 08/05/18 17:00 Alanine Aminotransferase 18 0-34 Albumin 4.4 3.5-5.0 Alkaline Phosphatase 141 42-140 Aspartate Aminotransferase 30 15-46 Blood Urea Nitrogen 21 7-26 Chloride 103 96-112 Carbon Dioxide 26 20-32 Creatinine 1.3 0.4-1.1 Glucose 103 70-100 Potassium 4.9 3.5-5.3 Sodium 139 133-147 Calcium 10.0 8.4-10.5 Anion Gap 9 TX 5-17 Protein Total Serum 7.1 6.0-8.2 BILIRUBIN TOTAL 0.5 0.2-1.3 GFR FEMALE AA 49 60-200 GFR FEMALE NON-AA 41 60-200 TROPONIN - 08/05/18 17:00 Troponin 0.01 0.00-0.03 NTPROBNP - 08/05/18 17:00 NTproBNP 643 NRG Encounters ACCT No. Visit Date/Time Discharge Status Pt. 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, unspecified [id number] 08/05/2018 13:31:26 08/05/2018 23:59:59 [facility] Outpatient WALESKA PEREZ [facility] MWPULM Chronic obstructive pulmonary disease, unspecified [id number] 08/05/2018 12:32:35 08/05/2018 23:59:59 [facility] Outpatient H MWPULM Cough [id number] 08/05/2018 16:00:44 08/05/2018 21:14:00 DIS Emergency [facility] ED Shortness of Breath [id number] 07/11/2018 13:19:01 07/11/2018 23:59:[address] Pneumonia, unspecified organism [id number] 07/18/2018 15:52:46 Document Registration [id number] 07/13/2018 15:28:58 Document Registration [id number] 07/11/2018 12:14:55 Document Registration [id number] 06/28/2018 12:55:10 Document Registration [id number] 07/08/2018 22:40:00 07/09/2018 01:06:00 DIS Emergency CECILIO OTT DO Via [facility] ER SOB [id number] 07/07/2018 23:43:00 07/08/2018 02:38:00 DIS Emergency XIN LOAIZA MD Via [facility] ER FS SOB [id number] 06/21/2018 09:04:00 06/21/2018 13:20:00 DIS Emergency KEYSHAWN LANDA DO Via [facility] ER FS SOB [id number] 05/31/2018 18:55:00 05/31/2018 20:34:00 DIS Emergency GANGA HALL MD Via [facility] ER FS SOB [id number] 05/30/2018 13:21:00 05/30/2018 17:05:00 DIS Emergency FAIZA JUAREZ DO Via [facility] ER FS SOB [id number] 04/21/2018 22:00:00 04/22/2018 01:10:00 DIS Emergency FAIZA JUAREZ DO Via [facility] ER FS CP [id number] 04/14/2018 14:19:00 04/14/2018 14:50:00 DIS Emergency KEYSHAWN LANDA DO Via [facility] ER FS RT LEG PAIN [id number] 04/14/2018 14:19:00 04/14/2018 14:19:00 CAN Preadmit KEYSHAWN LANDA DO Via [facility] ER FS RT STUMP PAIN [id number] 04/11/2018 12:35:00 04/11/2018 14:14:00 DIS Emergency NAOMIE SARGENT, ASIM [place] [facility] ER FS RT LEG PAIN [id number] 03/31/2018 22:29:00 04/01/2018 03:25:00 DIS Emergency MAGED RODGERS DO Via [facility] ER FS SOA [id number] 07/14/2018 10:35:00 Document Registration [id number] 07/07/2018 23:43:00 07/08/2018 02:38:00 DIS Emergency FADIA SARGENT, XIN George [facility] ER FS SOB [id number] 06/17/2018 15:20:00 06/17/2018 23:59:59 [facility]
--- NOTE | 2018-09-17 08:17 | ED Cardiac General ---
History of Present Illness General Source: patient Exam Limitations: no limitations History of Present Illness Date Seen by Provider: Sep 17, 2018 Time Seen by Provider: 08:03 Timing/Duration: 12 hours Prior CP/Workup: angina Modifying Factors: improves with oxygen, improves with other (breathing treatment) Allergies and Home Medications Allergies Coded Allergies: albuterol (Verified Allergy, Severe, 06/21/18) Heart Racing morphine (Verified Allergy, Mild, 06/21/18) Nausea Vomiting Uncoded Allergies: IVP DYE (Allergy, Unknown, 03/31/18) PLASTIC TAPE (Allergy, Unknown, 03/31/18) Home Medications Acyclovir 400 Mg Tablet, 400 MG PO BID, (Reported) Albuterol Sulfate 2.5 Mg/3 Ml Vial.neb, 2.5 MG INH Q4H, (Reported) Apixaban 5 Mg Tab.ds.pk, 5 MG PO BID, (Reported) Aspirin 81 Mg Tab.chew, 81 MG PO DAILY, (Reported) Atorvastatin Calcium 40 Mg Tablet, 40 MG PO DAILY, (Reported) Azithromycin 250 Mg Tablet, 250 MG PO UD TAKE 2 TABLETS TODAY, THEN TAKE 1 TABLET DAILY FOR 4 MORE DAYS Prescribed by: KEYSHAWN LANDA on 06/21/181207 Azithromycin 500 Mg Tablet, 500 MG PO DAILY FOR INFECTION Prescribed by: CECILIO OTT on 07/09/1815 Benzonatate 100 Mg Capsule, 1-2 TAB PO TID Prescribed by: CECILIO OTT on 07/09/1815 Cefdinir 300 Mg Capsule, 300 MG PO BID Prescribed by: CECILIO OTT on 07/09/1815 Cholecalciferol (Vitamin D3) 1,000 Unit Tablet, 1,000 UNIT PO DAILY, (Reported) Docusate Sodium 100 Mg Capsule, 100 MG PO BID PRN, (Reported) Escitalopram Oxalate 10 Mg Tablet, 10 MG PO DAILY, (Reported) Fluticasone/Vilanterol 1 Each Blst.w.dev, 1 EACH IH DAILY, (Reported) Furosemide 40 Mg Tablet, 40 MG PO DAILY Prescribed by: KEYSHAWN LANDA on 06/21/18 120 Guaifenesin 400 Mg Tablet, 400 MG PO BID PRN, (Reported) Guaifenesin/Dextromethorphan 1 Each Tbmp.12hr, 1 EACH PO BID Prescribed by: CECILIO OTT on 07/09/1815 Hydralazine HCl 50 Mg Tablet, 50 MG PO TID, (Reported) Ipratropium/Albuterol Sulfate 3 Ml Ampul.neb, 3 ML IH BID PRN for SHORTNESS OF BREATH, (Reported) Isosorbide Mononitrate 30 Mg Tab.er.24h, 30 MG PO DAILY, (Reported) Levothyroxine Sodium 25 Mcg Tablet, 25 MCG PO DAILY, (Reported) Lorazepam 1 Mg Tablet, 1 MG PO TID, (Reported) Metformin HCl 500 Mg Tab.er.24h, 500 MG PO DAILY, (Reported) Metoprolol Succinate 100 Mg Tab.er.24h, 100 MG PO DAILY, (Reported) Nitroglycerin 0.4 Mg Tab.subl, 0.4 MG SL PRN, (Reported) [place]-3/Dha/Epa/Fish Oil 1 Each Capsule, 1 EACH PO DAILY, (Reported) Ondansetron 4 Mg Tab.rapdis, 4 MG PO PRN, (Reported) Oxycodone HCl/Acetaminophen 1 Each Tablet, 1 EACH PO Q4H PRN for PAIN-MODERATE, (Reported) Prednisone 10 Mg Tab, 10 MG PO DAILY Prescribed by: GANGA HALL on 05/31/182031 Prednisone 5 Mg Tablet, 5 MG PO UD 12 PILLS DAY 1, THEN DECREASE BY 1 PILL A DAY UNTIL GONE Prescribed by: CECILIO OTT on 07/09/1815 Promethazine HCl/Codeine 5 Ml Syrup, 5 ML PO Q4H, (Reported) Ranitidine HCl 150 Mg Tablet, 150 MG PO BID, (Reported) Sacubitril/Valsartan 1 Each Tablet, 1 TAB PO BID, (Reported) Sennosides 8.6 Mg Tablet, 8.6 MG PO PRN, (Reported) Spironolactone 25 Mg Tablet, 25 MG PO DAILY, (Reported) Tiotropium [place] 1 Inh Aerp, 1 INH IH DAILY, (Reported) Torsemide 20 Mg Tablet, 20 MG PO DAILY, (Reported) Patient Home Medication List Home Medication List Reviewed: Yes Review of Systems Review of Systems Constitutional: No chills, No fever; malaise, weakness EENTM: No Symptoms Reported Respiratory: SOA at Rest, Wheezing Cardiovascular: Denies Chest Pain, Denies Edema; Irregular Heart Rate, Palpitations; Denies Syncope Gastrointestinal: No Symptoms Reported Genitourinary: No Symptoms Reported Musculoskeletal: no symptoms reported Skin: no symptoms reported Psychiatric/Neurological: No Symptoms Reported Endocrine: No Symptoms Reported Hematologic/Lymphatic: No Symptoms Reported Past [id number]-Opgeqv-Reqiok Hx Patient Social History Type Used: Cigarettes 2nd Hand Smoke Exposure: Yes Recent Hopitalizations: No Immunizations Up To Date Date of Influenza Vaccine: Nov 08, 2018 Seasonal Allergies Seasonal Allergies: No Past Medical History Surgeries: Yes Amputation, Defibrillator, Orthopedic, Pacemaker Respiratory: Yes COPD Currently Using CPAP: No Currently Using BIPAP: No Cardiac: Yes Atrial Fibrillation, Cardiomyopathy, Coronary Artery Disease, High Cholesterol, Hypertension Neurological: No [employer]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 0oz. 83.747073ey; BMI Method:Actual General Appearance: No Apparent Distress, WD/WN HEENT: PERRL/EOMI, TMs Normal, Normal ENT Inspection, Pharynx Normal Neck: Full Range of Motion, Normal Inspection, Non Tender, Supple Respiratory: Chest Non Tender, Normal Breath Sounds, No Accessory Muscle Use, No Respiratory Distress, Decreased Breath Sounds (throughout), Rhonci Cardiovascular: No Murmur, Irregularly Irregular, Tachycardia Gastrointestinal: Normal Bowel Sounds, No Organomegaly, No Pulsatile Mass, Non Tender Extremity: Normal Capillary Refill, Normal Inspection, Normal Range of Motion, Non Tender, No Calf Tenderness, No Pedal Edema, Other (BKA right leg, no lesions) Neurologic/Psychiatric: Alert, Oriented x3, No Motor/Sensory Deficits, Normal Mood/Affect, storyboard artist II-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 Norm as Tested Skin: Normal Color, Warm/Dry Lymphatic: No Adenopathy Progress/Results/Core Measures Results/Orders Lab Results Laboratory Tests Test 8/10/19 08:25 Range/Units White Blood Count 7.3 4.3-11.0 10^3/uL Red Blood Count 5.18 4.35-5.85 10^6/uL Hemoglobin 13.5 11.5-16.0 G/DL Hematocrit 43 35-52 % Mean Corpuscular Volume 83 80-99 FL Mean Corpuscular Hemoglobin 26 25-34 PG Mean Corpuscular Hemoglobin Concent 32 32-36 G/DL Red Cell Distribution Width 14.2 10.0-14.5 % Platelet Count 270 130-400 10^3/uL Mean Platelet Volume 10.0 7.4-10.4 FL Neutrophils (%) (Auto) 46 42-75 % Lymphocytes (%) (Auto) 41 12-44 % Monocytes (%) (Auto) 11 0-12 % Eosinophils (%) (Auto) 1 0-10 % Basophils (%) (Auto) 1 0-10 % Neutrophils # (Auto) 3.4 1.8-7.8 X 10^3 Lymphocytes # (Auto) 3.0 1.0-4.0 X 10^3 Monocytes # (Auto) 0.8 0.0-1.0 X 10^3 Eosinophils # (Auto) 0.1 0.0-0.3 10^3/uL Basophils # (Auto) 0.1 0.0-0.1 10^3/uL Prothrombin Time 16.1 H 12.2-14.7 SEC INR Comment 1.2 0.8-1.4 Activated Partial Thromboplast Time 26 24-35 SEC Sodium Level 140 135-145 MMOL/L Potassium Level 4.2 3.6-5.0 MMOL/L Chloride Level 97 L 98-107 MMOL/L Carbon Dioxide Level 27 21-32 MMOL/L Anion Gap 16 H 5-14 MMOL/L Blood Urea Nitrogen 14 7-18 MG/DL Creatinine 1.18 0.60-1.30 MG/DL Estimat Glomerular Filtration Rate 56 BUN/Creatinine Ratio 12 Glucose Level 115 H 70-105 MG/DL Calcium Level 10.2 H 8.5-10.1 MG/DL Corrected Calcium 8.5-10.1 MG/DL Magnesium Level 1.8 1.8-2.4 MG/DL Total Bilirubin 0.3 0.1-1.0 MG/DL Aspartate Amino Transf (AST/SGOT) 20 5-34 U/L Alanine Aminotransferase (ALT/SGPT) 12 0-55 U/L Alkaline Phosphatase 157 H 40-136 U/L Myoglobin 40.9 10.0-92.0 NG/ML Troponin I 0.54 *H <0.30 NG/ML Total Protein 7.3 6.4-8.2 GM/DL Albumin 4.8 H 3.2-4.5 GM/DL My Orders Orders - ALEXANDRA MERIDA MD Troponin I (09/17/18 08:08) Chest 1 View Ap/Pa Only (09/17/18 08:08) Ekg Tracing (09/17/18 08:08) Ed Iv/Invasive Line Start (09/17/18 08:08) Monitor-Rhythm Ecg Trace Only (09/17/18 08:08) Cbc With Automated Diff (09/17/18 08:08) Magnesium (09/17/18 08:08) Comprehensive Metabolic Panel (09/17/18 08:08) Myoglobin Serum (09/17/18 08:08) Protime With Inr (09/17/18 08:08) Partial Thromboplastin Time (09/17/18 08:08) O2 (09/17/18 08:08) Lipid Panel (09/18/18 06:00) Ed Iv/Invasive Line Start (09/17/18 08:08) Ceftriaxone For Iv Use (Rocephin For I (09/17/18 09:00) Fentanyl Injection (Sublimaze Injection (09/17/18 09:15) Ondansetron Injection (Zofran Injectio (09/17/18 09:15) Medications Given in ED Current Medications Medications Dose Ordered Sig/[place] Start Time Stop Time Status Last Admin Dose Admin Ceftriaxone Sodium 1000 mg/ Sterile Water 10 ml @ 200 mls/hr ONCE ONCE IV 09/17/18 09:00 09/17/18 09:02 DC 09/17/18 09:02 200 MLS/HR Fentanyl Citrate 25 mcg Q1H PRN IVP 09/17/18 09:15 09/17/18 09:14 25 MCG Ondansetron HCl 4 mg ONCE ONCE IVP 09/17/18 09:15 09/17/18 09:16 DC 09/17/18 09:14 4 MG Vital Signs/I&O 09/17/18 09/17/18 08:00 08:00 Temp 98.1 Pulse 112 Resp 18 B/P (MAP) 100/78 (85) Pulse Ox 98 98 O2 Delivery Nasal Cannula O2 Flow Rate 2.00 2.00 Progress Progress Note : Time: 08:14 Progress Note Patient has relatively well controlled heart rate especially after receiving albuterol nebulizer in route. Her oxygen saturation is 97-98% on her usual supplemental oxygen level. Her pacemaker appears to be functioning normally. Obtain cardiac workup and monitor vital signs closely. I discussed the anticipated workup and treatment with the patient who understands and agrees. She has been having some productive coughing recently. Will consider antibiotics. Due to her diabetes will delay decision for steroids. Patient states a preference not to receive steroids due to the fact that it has on her blood sugar. Initial ECG Impression Date: Sep 17, 2018 Initial ECG Impression Time: 08:12 Initial ECG Rate: 104 Initial ECG Rhythm: SVT Comment Atrial sensed ventricular paced complexes. Rhythm regular. Diagnostic Imaging Diagonstic Imaging: Xray Plain Films/CT/US/NM/MRI: chest Comments NAME: SHIRA PAIGE [facility] REC#: [id number] PT STATUS: REG ER : 1955 PHYSICIAN: ALEXANDRA MERIDA MD ADMIT DATE: 09/17/18/ER FS Draft Date of Exam:09/17/18 CHEST 1 VIEW AP/PA ONLY Portable chest compared to prior study from 07/08/2018. Indication: Atrial fibrillation and shortness of breath. Findings: Implantable cardiac defibrillator device is present. Heart size stable. There are some chronic interstitial changes at lung bases but no new regions of infiltrate or consolidation. There are no findings to suggest current failure. There is no significant effusion. There is no pneumothorax. Impression: 1. Prior defibrillator placement. Heart size stable without current edema or failure. No effusion evident. There is no new pulmonary infiltrate. There are some chronic interstitial changes at the lung bases. Dictated on workstation # [id number] Dict: 09/17/1837 Trans: 09/17/18 0842 [facility] [id number] Interpreted by: TERRY DANIEL MD Electronically signed by: Consults : Consults Notes Discussed with Dr. Veronika Powell at [facility]. Patient states a strong preference to go there. Excepted there by EMS transfer. Critical Care Note Critical Care Total Time (minutes) 33 Departure Communication (Admissions) Time/Spoke to Consulting Phy: 09:22 Dr. Veronika Powell, [facility] Family Conversation Patient states preference, [facility]. She understands and accepts the risk of transfer. Impression Primary Impression: NSTEMI (non-ST elevated myocardial infarction) Additional Impressions: Diabetes Qualified Codes: E11.59 - Type 2 diabetes mellitus with other circulatory complications COPD (chronic obstructive pulmonary disease) Qualified Codes: J42 - Unspecified chronic bronchitis CAD (coronary artery disease) Qualified Codes: I25.10 - Atherosclerotic heart disease of [place] coronary artery without angina pectoris Acute bronchitis Qualified Codes: J20.9 - Acute bronchitis, unspecified Disposition: 02 XFER SHT-TRM HOSP Condition: Improved Transfer Time Spoke to Accepting Phy: 09:22 Transfer Progress Notes Accepts in transfer to [facility] Method of Transfer: EMS Departure-Patient Inst. Referrals: NO,LOCAL PHYSICIAN (PCP/Family) Primary Care Physician ALEXANDRA MERIDA MD Sep 17, 2018 08:17
[2018-09-17 08:37] LABS: HEMATOCRIT 43 % (35-52); HEMOGLOBIN 13.5 G/DL (11.5-16.0); MEAN CORPUSCULAR HEMOGLOBIN 26 PG (25-34); MEAN CORPUSCULAR HGB CONC 32 G/DL (32-36); MEAN CORPUSCULAR VOLUME 83 FL (80-99); PLATELET COUNT 270 10^3/uL (130-400); RED CELL DISTRIBUTION WIDTH 14.2 % (10.0-14.5); WHITE BLOOD COUNT 7.3 10^3/uL (4.3-11.0)
[2018-09-17 08:38] LABS: BASOPHILS # (AUTO) 0.1 10^3/uL (0.0-0.1); BASOPHILS % (AUTO) 1 % (0-10); EOSINOPHILS % (AUTO) 1 % (0-10); LYMPHOCYTES % (AUTO) 41 % (12-44); MONOCYTES % (AUTO) 11 % (0-12); NEUTROPHILS # (AUTO) 3.4 X 10^3 (1.8-7.8); NEUTROPHILS % (AUTO) 46 % (42-75)
[2018-09-17 08:39] LABS: EOSINOPHILS # (AUTO) 0.1 10^3/uL (0.0-0.3); MONOCYTES # (AUTO) 0.8 X 10^3 (0.0-1.0)
--- NOTE | 2018-09-17 08:43 | Diagnostic Imaging Report ---
Portable chest compared to prior study from 07/08/2018. Indication: Atrial fibrillation and shortness of breath. Findings: Implantable cardiac defibrillator device is present. Heart size stable. There are some chronic interstitial changes at lung bases but no new regions of infiltrate or consolidation. There are no findings to suggest current failure. There is no significant effusion. There is no pneumothorax. Impression: 1. Prior defibrillator placement. Heart size stable without current edema or failure. No effusion evident. There is no new pulmonary infiltrate. There are some chronic interstitial changes at the lung bases. Dictated by: Dictated on workstation # [id number]
[2018-09-17 08:57] LABS: CHLORIDE 97 MMOL/L (98-107); POTASSIUM 4.2 MMOL/L (3.6-5.0); SODIUM 140 MMOL/L (135-145)
[2018-09-17 08:58] LABS: ALANINE AMINOTRANSFERASE 12 U/L (0-55); ALKALINE PHOSPHATASE 157 U/L (40-136); BILIRUBIN,TOTAL 0.3 MG/DL (0.1-1.0); BUN/CREATININE RATIO 12; CALCIUM 10.2 MG/DL (8.5-10.1); CARBON DIOXIDE 27 MMOL/L (21-32); CREATININE SERUM 1.18 MG/DL (0.60-1.30); GFR ESTIMATED 56; GLUCOSE 115 MG/DL (70-105); MAGNESIUM 1.8 MG/DL (1.8-2.4)
[2018-09-17 09:00] LABS: ALBUMIN 4.8 GM/DL (3.2-4.5); TOTAL PROTEIN 7.3 GM/DL (6.4-8.2)
[2018-09-17] MEDS ORDERED: cefTRIAXone FOR IV USE 1,000 MG in WATER (STERILE) FOR INJECTION 10 ML IV ONE (09:00)
--- NOTE | 2018-09-17 09:00 | NUR ---
Notified Dr Zabala of pt's elevated Troponin 0.54
[2018-09-17 09:13] LABS: INR 1.2 (0.8-1.4); PROTHROMBIN TIME PATIENT 16.1 SEC (12.2-14.7)
[2018-09-17] MEDS ORDERED: fentaNYL INJECTION 100 MCG/2 ML AMP IVP PRN (09:15)
[2018-09-17] MEDS ORDERED: ONDANSETRON 4 MG/2 ML (SDV) Z0FRAN IVP ONE (09:15)
[2018-09-17] MEDS ORDERED: ASPIRIN 81 MG CHEW (CHILDREN'S ASA) PO ONE (09:30)
[2018-09-17 10:07] VITALS: BP 148/89
--- NOTE | 2018-09-17 10:16 | NUR ---
Patient transferred at this time via [facility] to [facility] [place].
--- NOTE | 2018-09-17 10:25 | NUR ---
Transfer center at [facility] notified of patient departure.
== END 2018-09-17 10:21 | disposition short-term general hospital (02) ==
LOC: EDUNIT# 08:00 → ER FS 08:01
DX: I21.4 Non-ST elevation (NSTEMI) myocardial infarction (principal); E11.9 Type 2 diabetes mellitus without complications; J44.0 Chronic obstructive pulmonary disease with (acute) lower respiratory infection; J20.9 Acute bronchitis, unspecified; I25.10 Atherosclerotic heart disease of native coronary artery without angina pectoris; I10 Essential (primary) hypertension; I48.91 Unspecified atrial fibrillation; E78.00 Pure hypercholesterolemia, unspecified; E03.9 Hypothyroidism, unspecified; F41.9 Anxiety disorder, unspecified; F32.9 Major depressive disorder, single episode, unspecified; Z95.810 Presence of automatic (implantable) cardiac defibrillator; Z89.511 Acquired absence of right leg below knee; Z88.8 Allergy status to other drugs, medicaments and biological substances; Z91.041 Radiographic dye allergy status; Z79.01 Long term (current) use of anticoagulants; Z79.82 Long term (current) use of aspirin; Z79.52 Long term (current) use of systemic steroids; Z79.84 Long term (current) use of oral hypoglycemic drugs; Z77.22 Contact with and (suspected) exposure to environmental tobacco smoke (acute) (chronic)
CPT/HCPCS: 36415; 71045; 80053; 83735; 83874; 84484; 85025; 85610; 85730; 93005; 93041

== ENCOUNTER 2018-10-26 20:06 | Emergency (ER) | payer OTHER ==
[~2018-10-26] VITALS: Ht 170 cm; Wt 86.0 kg
--- NOTE | 2018-10-26 21:00 | NUR ---
PT RESTING IN BED. PT REQUESTED AND WARM BLANKET AND ONE WAS PROVIDED. PT STATES THERE IS NOTHING MORE SHE NEEDS AT THIS TIME.
[2018-10-26] MEDS ORDERED: NS IV 1000 ML 1,000 ML IV SCH (21:05)
[2018-10-26] MEDS ORDERED: NS IV 1000 ML 1,000 ML IV ONE (21:05)
[2018-10-26 21:24] LABS: BASOPHILS % (AUTO) 0 % (0-10); EOSINOPHILS % (AUTO) 0 % (0-10); HEMATOCRIT 45 % (35-52); HEMOGLOBIN 13.5 G/DL (11.5-16.0); LYMPHOCYTES # (AUTO) 0.8 X 10^3 (1.0-4.0); LYMPHOCYTES % (AUTO) 10 % (12-44); MEAN CORPUSCULAR HEMOGLOBIN 26 PG (25-34); MEAN CORPUSCULAR HGB CONC 30 G/DL (32-36); MEAN CORPUSCULAR VOLUME 87 FL (80-99); MONOCYTES # (AUTO) 0.4 X 10^3 (0.0-1.0); MONOCYTES % (AUTO) 6 % (0-12); NEUTROPHILS # (AUTO) 6.1 X 10^3 (1.8-7.8); NEUTROPHILS % (AUTO) 83 % (42-75); PLATELET COUNT 223 10^3/uL (130-400); RED CELL DISTRIBUTION WIDTH 14.1 % (10.0-14.5); WHITE BLOOD COUNT 7.3 10^3/uL (4.3-11.0)
[2018-10-26 21:29] LABS: ALANINE AMINOTRANSFERASE 12 U/L (0-55); ALKALINE PHOSPHATASE 157 U/L (40-136); BILIRUBIN,TOTAL 0.5 MG/DL (0.1-1.0); BUN/CREATININE RATIO 17; CALCIUM 9.3 MG/DL (8.5-10.1); CARBON DIOXIDE 22 MMOL/L (21-32); CHLORIDE 108 MMOL/L (98-107); CREATININE SERUM 1.05 MG/DL (0.60-1.30); GFR ESTIMATED 53; GLUCOSE 132 MG/DL (70-105); POTASSIUM 4.6 MMOL/L (3.6-5.0); SODIUM 139 MMOL/L (135-145); TOTAL PROTEIN 6.7 GM/DL (6.4-8.2)
[2018-10-26 22:03] LABS: ABG BASE EXCESS -1.2 MMOL/L (-2.5-2.5); ABG OXYGEN SATURATION 88 % (94-100); ABG PCO2 39 MMHG (35-45); ABG PH 7.39 (7.37-7.43); ABG PO2 55 MMHG (79-93); ABG TCO2 24.8 MMOL/L (21.0-31.0); PATIENT TEMP 100.9
[2018-10-26 22:04] LABS: INSPIRED O2 4; VENTILATOR NO
--- NOTE | 2018-10-26 22:04 | NUR ---
PT RESTING IN BED WITH THE LIGHTS OFF. PT IS AWAKE AND ALERT AND STATES THERE IS NOTHING SHE NEEDS AT THIS TIME.
[2018-10-26 22:05] LABS: ALLENS TEST PASSED
[2018-10-26 22:08] LABS: BILIRUBIN,URINE NEGATIVE (NEGATIVE); CLARITY,URINE CLEAR; COLOR,URINE YELLOW; GLUCOSE, URINE (UA) NEGATIVE (NEGATIVE); KETONES,URINE NEGATIVE (NEGATIVE); LEUKOCYTE ESTERASE ,URINE NEGATIVE (NEGATIVE); NITRITE,URINE NEGATIVE (NEGATIVE); PROTEIN,URINE TRACE (NEGATIVE)
[2018-10-26 22:16] LABS: BACTERIA,URINE NEGATIVE /HPF; WBC,URINE 0-2 /HPF
--- NOTE | 2018-10-26 22:23 | Diagnostic Imaging Report ---
INDICATION: Tachycardia 2134 hrs. Portable AP view of the chest is obtained with comparison made to the study of 09/17/2018. There is air trapping, bilaterally. No pneumothorax or consolidation is identified. Left anterior chest wall defibrillator device is in place. IMPRESSION: Stable chest without acute abnormality detected. Dictated by: Dictated on workstation # [id number]
[2018-10-26] MEDS ORDERED: fentaNYL INJECTION 100 MCG/2 ML AMP IVP ONE (22:30)
--- NOTE | 2018-10-26 23:17 | ED Cardiac General ---
History of Present Illness General Chief Complaint: Cardiac/General Problems Stated Complaint: RAPID HEART RATE Nursing Triage Note: PT TO ROOM FS03 WITH C/O TACHYCARDIA. PT STATES PULSE OF 110 AT HOME. Source: patient, family, EMS Exam Limitations: no limitations History of Present Illness Date Seen by Provider: Oct 26, 2018 Time Seen by Provider: 20:15 Initial Comments Patient presents to ER by EMS from home with chief complaint of rapid heart rate. She's not having any chest pain but she is having some increased oxygen needs. She usually wears 3 L/m but she said she was on a long board to get throughout the house and so they increased her 5 liters per minute because the ecg technician in her home told her that 2 L was making it to her because of the distance. She's had no cough fevers chills nausea vomiting chest pain abdominal pain or swelling of her foot. 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 Patient's had diarrhea for the past day but no fevers or chills. No cough. Allergies and Home Medications Allergies Uncoded Allergies: IV CONTRAST (Allergy, Unknown, 10/26/18) Patient Home Medication List Home Medication List Reviewed: Yes Review of Systems Review of Systems Constitutional: No chills, No diaphoresis EENTM: No Blurred Vision, No Double Vision Respiratory: Denies Cough, Denies Orthopnea Cardiovascular: Denies Chest Pain, Denies Lightheadedness Gastrointestinal: Denies Abdomen Distended, Denies Abdominal Pain, Denies Constipated, Denies Diarrhea Genitourinary: Denies Burning, Denies Discharge Musculoskeletal: No back pain, No joint pain Skin: No pruritus, No rash Past Jxdwgok-Bwcbac-Yrlmre Hx Patient Social History Alcohol Use: Denies Use Recreational Drug Use: No Smoking Status: Current Everyday Smoker Type Used: Cigars 2nd Hand Smoke Exposure: Yes Recent Foreign Travel: No Contact w/Someone Who Travel: No Recent Infectious Disease Expo: No Recent Hopitalizations: Yes (09/17- AT [facility]) Physical Abuse: No Sexual Abuse: No Fear: No Seasonal Allergies Seasonal Allergies: No Past Medical History Surgeries: Yes Adenoidectomy, Amputation, Angioplasty, Orthopedic Respiratory: Yes COPD Cardiac: Yes Hypertension Neurological: No Genitourinary: No Gastrointestinal: No Musculoskeletal: Yes Amputee, Back Injury Endocrine: Yes Hypothyroidsim, Diabetes, Non-Insulin dep HEENT: No Cancer: No Psychosocial: No Integumentary: No Blood Disorders: No Physical Exam Vital Signs Vital Signs - First Documented 10/26/18 20:10 Temp 37.2 Pulse 75 B/P (MAP) 89/50 (63) Pulse Ox 16 O2 Delivery Room Air Capillary Refill : Less Than 3 Seconds Height, Weight, BMI Height: '" Weight: lbs. oz. kg; 29.00 BMI Method: General Appearance: No Apparent Distress, Chronically ill HEENT: PERRL/EOMI, Pharynx Normal, Moist Mucous Membranes Neck: Full Range of Motion, Normal Inspection Respiratory: Chest Non Tender, Lungs Clear, Normal Breath Sounds, No Accessory Muscle Use, No Respiratory Distress Cardiovascular: Regular Rate, Rhythm, No Edema, Normal Peripheral Pulses Gastrointestinal: Normal Bowel Sounds, Non Tender, Soft Extremity: Normal Capillary Refill, Normal Inspection, No Pedal Edema, Other (left BKA) Neurologic/Psychiatric: Alert, Oriented x3 Skin: Normal Color, Warm/Dry Progress/Results/Core Measures Results/Orders Lab Results Laboratory Tests Test 10/26/18 20:50 10/26/18 21:55 10/27/18 00:05 10/27/18 00:26 Range/Units White Blood Count 7.3 4.3-11.0 10^3/uL Red Blood Count 5.15 4.35-5.85 10^6/uL Hemoglobin 13.5 11.5-16.0 G/DL Hematocrit 45 35-52 % Mean Corpuscular Volume 87 80-99 FL Mean Corpuscular Hemoglobin 26 25-34 PG Mean Corpuscular Hemoglobin Concent 30 L 32-36 G/DL Red Cell Distribution Width 14.1 10.0-14.5 % Platelet Count 223 130-400 10^3/uL Mean Platelet Volume 10.0 7.4-10.4 FL Neutrophils (%) (Auto) 83 H 42-75 % Lymphocytes (%) (Auto) 10 L 12-44 % Monocytes (%) (Auto) 6 0-12 % Eosinophils (%) (Auto) 0 0-10 % Basophils (%) (Auto) 0 0-10 % Neutrophils # (Auto) 6.1 1.8-7.8 X 10^3 Lymphocytes # (Auto) 0.8 L 1.0-4.0 X 10^3 Monocytes # (Auto) 0.4 0.0-1.0 X 10^3 Eosinophils # (Auto) 0.0 0.0-0.3 10^3/uL Basophils # (Auto) 0.0 0.0-0.1 10^3/uL Sodium Level 139 135-145 MMOL/L Potassium Level 4.6 3.6-5.0 MMOL/L Chloride Level 108 H 98-107 MMOL/L Carbon Dioxide Level 22 21-32 MMOL/L Anion Gap 9 5-14 MMOL/L Blood Urea Nitrogen 18 7-18 MG/DL Creatinine 1.05 0.60-1.30 MG/DL Estimat Glomerular Filtration Rate 53 BUN/Creatinine Ratio 17 Glucose Level 132 H 70-105 MG/DL Calcium Level 9.3 8.5-10.1 MG/DL Corrected Calcium 9.3 8.5-10.1 MG/DL Magnesium Level 1.6 1.6-2.4 MG/DL Total Bilirubin 0.5 0.1-1.0 MG/DL Aspartate Amino Transf (AST/SGOT) 17 5-34 U/L Alanine Aminotransferase (ALT/SGPT) 12 0-55 U/L Alkaline Phosphatase 157 H 40-136 U/L Troponin I < 0.30 < 0.30 <0.30 NG/ML Pro-B-Type Natriuretic Peptide 703.6 H <75.0 PG/ML Total Protein 6.7 6.4-8.2 GM/DL Albumin 4.0 3.2-4.5 GM/DL Urine Color YELLOW Urine Clarity CLEAR Urine pH 6.0 5-9 Urine Specific [place] 1.025 H 1.016-1.022 Urine Protein TRACE H NEGATIVE Urine Glucose (UA) NEGATIVE NEGATIVE Urine Ketones NEGATIVE NEGATIVE Urine Nitrite NEGATIVE NEGATIVE Urine Bilirubin NEGATIVE NEGATIVE Urine Urobilinogen 1.0 NORMAL MG/DL Urine Leukocyte Esterase NEGATIVE NEGATIVE Urine RBC (Auto) NEGATIVE NEGATIVE Urine RBC NONE /HPF Urine WBC 0-2 /HPF Urine Squamous Epithelial Cells 2-5 /HPF Urine Crystals NONE /LPF Urine Bacteria NEGATIVE /HPF Urine Casts NONE /LPF Urine Mucus NEGATIVE /LPF Urine Culture Indicated NO Blood Gas Puncture Site LEFT RADIAL Blood Gas Patient Temperature 100.9 Arterial Blood pH 7.39 7.37-7.43 Arterial Blood Partial Pressure CO2 39 35-45 MMHG Arterial Blood Partial Pressure O2 55 L 79-93 MMHG Arterial Blood HCO3 24 23-27 MMOL/L Arterial Blood Total CO2 24.8 21.0-31.0 MMOL/L Arterial Blood Oxygen Saturation 88 L 94-100 % Arterial Blood Base Excess -1.2 -2.5-2.5 MMOL/L Anatoliy Test PASSED Blood Gas Ventilator Setting NO Blood Gas Inspired Oxygen 4 D-Dimer 0.93 H 0.00-0.49 UG/ML Micro Results Microbiology 10/26/18 Influenza Types A,B Antigen (FABIO) - Final, Complete My Orders Orders - GANGA HALL Continuous Ekg Monitoring (10/26/18 20:36) Ekg Tracing (10/26/18 20:36) Ed Iv/Invasive Line Start (10/26/18 21:05) Ns Iv 1000 Ml (Sodium Chloride 0.9%) (10/26/18 21:05) Ns Iv 1000 Ml (Sodium Chloride 0.9%) (10/26/18 21:05) Arterial Blood Gas (10/26/18 21:05) Cbc With Automated Diff (10/26/18 21:05) Comprehensive Metabolic Panel (10/26/18 21:05) Fibrin Degradation Products (10/26/18 21:05) Magnesium (10/26/18 21:05) Troponin I (10/26/18 21:05) Ua Culture If Indicated (10/26/18 21:05) Influenza A And B Antigens (10/26/18 21:05) Probnp Fs (10/26/18 21:05) Chest 1 View Ap/Pa Only (10/26/18 21:05) Fentanyl Injection (Sublimaze Injection (10/26/18 22:30) Ekg Tracing (10/26/18 23:22) Troponin I (10/26/18 23:52) Ns Iv 1000 Ml (Sodium Chloride 0.9%) (10/27/18 00:32) Aspirin Chewable Tablet (Baby Aspirin Ch (10/27/18 02:00) Oxycodone/Apap 5/325mg Tablet (Percocet (10/27/18 02:00) Medications Given in ED Current Medications Medications Dose Ordered Sig/North Route Start Time Stop Time Status Last Admin Dose Admin Aspirin 324 mg ONCE ONCE PO 10/27/18 02:00 10/27/18 02:01 DC 10/27/18 02:02 324 MG Fentanyl Citrate 50 mcg ONCE ONCE IVP 10/26/18 22:30 10/26/18 22:31 DC 10/26/18 22:31 50 MCG Oxycodone/ Acetaminophen 1 tab ONCE ONCE PO 10/27/18 02:00 10/27/18 02:01 DC 10/27/18 02:02 1 TAB Sodium Chloride 1,000 ml @ 0 mls/hr Q0M ONCE IV 10/26/18 21:05 10/26/18 21:08 DC 10/26/18 21:45 999 MLS/HR Vital Signs/I&O 10/26/18 20:10 Temp 37.2 Pulse 75 B/P (MAP) 89/50 (63) Pulse Ox 16 O2 Delivery Room Air Blood Pressure Mean: 63 Progress Progress Note #1: Time: 23:20 Progress Note After a bag of fluids her heart rate is come down to the upper 80s low 90s. Plan to repeat an EKG to compare. BNP machine had to be recalibrated so there is been a delay. Fibrin d-dimer blue top was not collected for some reason so labs down here to draw that. She is on Eliquis so a pulmonary embolism is actually fairly unlikely. Patient is back on her baseline level of 3 L per nasal cannula and satting 100%. Progress Note #2: Time: 23:38 Progress Note BNP came through 700. We'll this is modestly elevated at elbow but it's particularly high for this patient. Her heart rate and breathing improved after some IV fluids which is not consistent with a congestive heart failure exacerbation nor does she show any clinical signs of congestive heart failure. Plan to let her go home and follow up outpatient with primary care in the next week or 2. Delta troponin and EKG now. Progress Note #3: Time: 01:53 Progress Note After running the second troponin the patient's lab came back as 0.44. Labs expect that this may be an error since they just recalibrated machine. They ran another known specimen and it came back significantly different. Plan to rerun the second troponin on the backup machine that was used initially. Patient's having some recurrence of her chronic low back and stump pain so we'll give her Percocet. We'll give her some aspirin to chew and swallow. She is already on Eliquis which should protect her if she is having a non-STEMI. There are no EKG changes and the patient is not having any chest or belly pain. Progress Note #4: Time: 03:09 Progress Note Repeated the second troponin on the backup machine and it came out undetectable. This is consistent with other blood tests. Suspected was a spurious measurement showing an elevated troponin. Patient is still comfortable and ready to go home so we will allow her to leave. Initial ECG Impression Date: Oct 26, 2018 Initial ECG Impression Time: 20:12 Initial ECG Rate: 104 Initial ECG Impression: Nonspecific Changes Initial ECG Comparisson: No Previous ECG Available Comment Atrial sensed ventricular paced complexes. Tachycardia. No clinically significant ST elevation or depression. EKG : EKG Time: 23:45 Rate: 87 Intervals: QT (489) ECG Comparisson: Unchanged ECG Impression: Nonspecific Changes Comment Atrial sensed ventricular paced rhythm without clinically significant ST elevation or depression. Diagnostic Imaging Diagonstic Imaging: Xray Plain Films/CT/US/NM/MRI: chest (1v) Comments [facility] [place], [place] NAME: SHIRA PAIGE [facility] REC#: [id number] PT STATUS: REG ER : 1955 PHYSICIAN: GANGA HALL MD ADMIT DATE: 10/26/18/ER FS Draft Date of Exam:10/26/18 CHEST 1 VIEW AP/PA ONLY INDICATION: Tachycardia 2134 hrs. Portable AP view of the chest is obtained with comparison made to the study of 09/17/2018. There is air trapping, bilaterally. No pneumothorax or consolidation is identified. Left anterior chest wall defibrillator device is in place. IMPRESSION: Stable chest without acute abnormality detected. Dictated on workstation # [id number] Dict: 10/26/182205 Trans: 10/26/18 222 [facility], [facility]–1983 [id number] Interpreted by: ASIM SCHMIDT MD Electronically signed by: Reviewed: Reviewed by Me Departure Impression Primary Impression: Diarrhea Qualified Codes: R19.7 - Diarrhea, unspecified Additional Impressions: Dehydration Chronic respiratory failure with hypoxia Disposition: 01 HOME, SELF-CARE Condition: Improved Departure-Patient Inst. Decision time for Depature: 03:09 Patient Instructions: Dehydration, Adult (DC), Diarrhea in Adolescents and Adults Add. Discharge Instructions: I suspect the reason your heart was beating so fast relates to you being dehydrated. We gave you IV fluids and this seemed to correct the problem. We could not find any other dangerous cause. I would recommend you follow up with your primary doctor in the next 1-2 weeks. Return to the ER if you Begin to experience chest pain, increasing shortness of breath or other worrisome symptoms. Loperamide/Imodium 2 tablets if you have return of diarrhea. Then take one tablet every 4 hours afterwards if you're still having watery diarrhea. All discharge instructions reviewed with patient and/or family. Voiced understanding. GANGA HALL Oct 26, 2018 23:17
--- NOTE | 2018-10-26 23:19 | NUR ---
PT PLACED ON BED MINOR.
--- NOTE | 2018-10-26 23:23 | NUR ---
PT REMOVED FROM BED MINOR. PT STATES THERE IS NOTHING ELSE SHE NEEDS AT THIS TIME.
[2018-10-26 23:25] LABS: MAGNESIUM 1.6 MG/DL (1.6-2.4)
--- NOTE | 2018-10-27 00:14 | NUR ---
PT IN BED WITH THE LIGHTS OFF. FAMILY IN THE ROOM WITH HERE. PT STATES THERE IS NOTHING SHE NEEDS AT THIS TIME. PT INSTRUCTED TO USE THE CALL LIGHT IF SHE NEEDS ANYTHING.
[2018-10-27] MEDS ORDERED: NS IV 1000 ML 1,000 ML ONE (00:32)
--- NOTE | 2018-10-27 01:16 | NUR ---
PT RESTING IN BED WITH THE LIGHTS OFF. PT STATES THERE IS NOTHING SHE NEEDS AT THIS TIME. WARM BLANKET GIVEN TO PT.
--- NOTE | 2018-10-27 01:51 | NUR ---
PROVIDER IN ROOM WITH PATIENT.
[2018-10-27] MEDS ORDERED: oxyCODONE/APAP 5/325MG (PERCOCET 5) TABLET PO ONE (02:00)
[2018-10-27] MEDS ORDERED: ASPIRIN 81 MG CHEW (CHILDREN'S ASA) PO ONE (02:00)
--- NOTE | 2018-10-27 02:03 | NUR ---
PT PLACED ON BED MINOR.
[2018-10-27 03:18] VITALS: BP 118/69
== END 2018-10-27 03:18 | disposition home or self-care (01) ==
LOC: MERGE 20:07 → ER FS 20:07
DX: R19.7 Diarrhea, unspecified (principal); E86.0 Dehydration; J96.11 Chronic respiratory failure with hypoxia; J44.9 Chronic obstructive pulmonary disease, unspecified; I10 Essential (primary) hypertension; E11.9 Type 2 diabetes mellitus without complications; E03.9 Hypothyroidism, unspecified; F17.290 Nicotine dependence, other tobacco product, uncomplicated; Z90.89 Acquired absence of other organs; Z89.511 Acquired absence of right leg below knee; Z91.041 Radiographic dye allergy status; Z99.81 Dependence on supplemental oxygen
CPT/HCPCS: 36415; 71045; 80053; 81000; 82805; 83735; 83880; 84484; 85025; 85379; 87804; 93005; 96361; 96374

== ENCOUNTER 2018-11-24 21:50 | Emergency (ER) | payer MEDICARE, MEDICAID ==
[~2018-11-24] VITALS: Ht 170.1 cm; Wt 92.0 kg
--- NOTE | 2018-11-24 22:57 | ED Respiratory ---
General Chief Complaint: Respiratory Problems Stated Complaint: COUGH, SOB Source: patient History of Present Illness Date Seen by Provider: Nov 24, 2018 Time Seen by Provider: 22:57 Initial Comments 63-year-old female presenting with complaints of cough and shortness of breath. She had recently finished a course of amoxicillin 875 mg twice a day from her regular doctor, Sabrina Ellis out of [facility]. She has had some improvement in her symptoms but then since she's been off of the antibiotics her cough and congestion is worsening again. She denies any fever or chills. She is still only coughing up clear thick sputum. There is no color to her sputum at this point. She has chest wall pain from coughing so much and so hard. Allergies and Home Medications Allergies Coded Allergies: albuterol (Verified Allergy, Severe, 06/21/18) Heart Racing morphine (Verified Allergy, Mild, 06/21/18) Nausea Vomiting Uncoded Allergies: IV CONTRAST (Allergy, Unknown, 10/27/18) IVP DYE (Allergy, Unknown, 03/31/18) PLASTIC TAPE (Allergy, Unknown, 03/31/18) Home Medications Acyclovir 400 Mg Tablet, 400 MG PO BID, (Reported) Albuterol Sulfate 2.5 Mg/3 Ml Vial.neb, 2.5 MG INH Q4H, (Reported) Amoxicillin 875 Mg Tablet, 875 MG PO BID Prescribed by: XIN LOAIZA on 11/25/18 001 Apixaban 5 Mg Tab.ds.pk, 5 MG PO BID, (Reported) Aspirin 81 Mg Tab.chew, 81 MG PO DAILY, (Reported) Atorvastatin Calcium 40 Mg Tablet, 40 MG PO DAILY, (Reported) Azithromycin 250 Mg Tablet, 250 MG PO UD TAKE 2 TABLETS TODAY, THEN TAKE 1 TABLET DAILY FOR 4 MORE DAYS Prescribed by: KEYSHAWN LANDA on 06/21/18 1208 Azithromycin 500 Mg Tablet, 500 MG PO DAILY FOR INFECTION Prescribed by: CECILIO OTT on 07/09/18 001 Benzonatate 100 Mg Capsule, 1-2 TAB PO TID Prescribed by: CECILIO OTT on 07/09/1815 Cefdinir 300 Mg Capsule, 300 MG PO BID Prescribed by: CECILIO OTT on 07/09/1815 Cholecalciferol (Vitamin D3) 1,000 Unit Tablet, 1,000 UNIT PO DAILY, (Reported) Docusate Sodium 100 Mg Capsule, 100 MG PO BID PRN, (Reported) Escitalopram Oxalate 10 Mg Tablet, 10 MG PO DAILY, (Reported) Fluticasone/Vilanterol 1 Each Blst.w.dev, 1 EACH IH DAILY, (Reported) Furosemide 40 Mg Tablet, 40 MG PO DAILY Prescribed by: KEYSHAWN LANDA on 06/21/18 1208 Guaifenesin 400 Mg Tablet, 400 MG PO BID PRN, (Reported) Guaifenesin/Dextromethorphan 1 Each Tbmp.12hr, 1 EACH PO BID Prescribed by: CECILIO OTT on 07/09/1815 Hydralazine HCl 50 Mg Tablet, 50 MG PO TID, (Reported) Ipratropium/Albuterol Sulfate 3 Ml Ampul.neb, 3 ML IH BID PRN for SHORTNESS OF BREATH, (Reported) Isosorbide Mononitrate 30 Mg Tab.er.24h, 30 MG PO DAILY, (Reported) Levothyroxine Sodium 25 Mcg Tablet, 25 MCG PO DAILY, (Reported) Lorazepam 1 Mg Tablet, 1 MG PO TID, (Reported) Metformin HCl 500 Mg Tab.er.24h, 500 MG PO DAILY, (Reported) Metoprolol Succinate 100 Mg Tab.er.24h, 100 MG PO DAILY, (Reported) Nitroglycerin 0.4 Mg Tab.subl, 0.4 MG SL PRN, (Reported) Turner-3/Dha/Epa/Fish Oil 1 Each Capsule, 1 EACH PO DAILY, (Reported) Ondansetron 4 Mg Tab.rapdis, 4 MG PO PRN, (Reported) Oxycodone HCl/Acetaminophen 1 Each Tablet, 1 EACH PO Q4H PRN for PAIN-MODERATE, (Reported) Prednisone 10 Mg Tab, 10 MG PO DAILY Prescribed by: GANGA HALL on 05/31/182031 Prednisone 5 Mg Tablet, 5 MG PO UD 12 PILLS DAY 1, THEN DECREASE BY 1 PILL A DAY UNTIL GONE Prescribed by: CECILIO OTT on 07/09/1815 Promethazine HCl/Codeine 5 Ml Syrup, 5 ML PO Q4H, (Reported) Ranitidine HCl 150 Mg Tablet, 150 MG PO BID, (Reported) Sacubitril/Valsartan 1 Each Tablet, 1 TAB PO BID, (Reported) Sennosides 8.6 Mg Tablet, 8.6 MG PO PRN, (Reported) Spironolactone 25 Mg Tablet, 25 MG PO DAILY, (Reported) Tiotropium [place] 1 Inh Aerp, 1 INH IH DAILY, (Reported) Torsemide 20 Mg Tablet, 20 MG PO DAILY, (Reported) Patient Home Medication List Home Medication List Reviewed: Yes Review of Systems Review of Systems Constitutional: No chills, No fever; malaise EENTM: hoarseness, nose congestion Respiratory: cough, dyspnea on exertion; No hemoptysis; phlegm (thick white), short of breath; No stridor; wheezing Cardiovascular: chest pain (chest wall pain from coughing) Gastrointestinal: no symptoms reported Genitourinary: no symptoms reported Musculoskeletal: no symptoms reported Skin: no symptoms reported Past Aerxoia-Brrdqf-Rdapqg Hx Past Med/Social Hx: Reviewed Nursing Past Med/Soc Hx Patient Social History Type Used: Cigars 2nd Hand Smoke Exposure: Yes Recent Foreign Travel: No Contact w/Someone Who Travel: No Recent Hopitalizations: Yes (09/17- AT 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 0oz. [id number]; 29.00 BMI Method:Stated General Appearance: WD/WN, no apparent distress HEENT: PERRL/EOMI, pharynx normal Neck: non-tender, full range of motion, normal inspection Respiratory: decreased breath sounds, accessory muscle use; No rales; wheezing Cardiovascular: normal peripheral pulses, regular rate, rhythm Neurologic/Psychiatric: alert, normal mood/affect, oriented x 3 Skin: normal color, warm/dry Progress/Results/Core Measures Suspected Sepsis SIRS Temperature: Pulse: Respiratory Rate: Blood Pressure / Mean: Results/Orders My Orders Orders - XIN LOAIZA MD Albuterol/Ipra Inhalation Soln (Duoneb I (11/24/18 23:05) Svn Small Volume Nebulizer (11/24/18 23:05) Chest Pa/Lat (2 View) (11/24/18 23:06) Oxygen-Administer (11/24/18 23:06) Ceftriaxone For Im Use (Rocephin For Im (11/25/18 00:14) Ketorolac Injection (Toradol Injection) (11/25/18 00:14) Lidocaine 1% Inj 20 Ml (Xylocaine 1% Inj (11/25/18 00:15) Medications Given in ED Current Medications Medications Dose Ordered Sig/North Route Start Time Stop Time Status Last Admin Dose Admin Lidocaine HCl 2.1 ml ONCE ONCE INJ 11/25/18 00:15 11/25/18 00:16 DC 11/25/18 00:25 2.1 ML Vital Signs/I&O 11/24/18 11/24/18 11/25/18 22:07 23:11 00:30 Temp 37.7 37.8 Pulse 80 72 Resp 24 16 B/P (MAP) 124/76 (92) 158/86 Pulse Ox 100 100 99 O2 Delivery Nasal Cannula Nasal Cannula Nasal Cannula O2 Flow Rate 3.00 3.00 Capillary Refill : Progress Note : Progress Note On my review of her 2 view chest x-ray she has no definite infiltrate. There is hardware in place. This appears similar to prior film in the system. She had some improvement in her breathing after breathing treatment here in the emergency department. Will give a first dose of antibiotics here in addition to follow-up with oral antibiotics. She was asking for a pain shot so will give a dose of Toradol to help with her chest wall pain. She has oxycodone for pain home. Departure Impression Primary Impression: COPD with exacerbation Additional Impression: Chest wall pain Disposition: HOME, SELF-CARE Condition: Stable Departure-Patient Inst. Decision time for Depature: 00:15 Referrals: NO,LOCAL PHYSICIAN (PCP) Primary Care Physician [facility] [place] [facility] [place] Patient Instructions: COPD Including Emphysema (DC), Exacerbation of COPD (DC), Costochondritis (DC) Add. Discharge Instructions: Continue on your medicines at home. Follow up with Your Pulmonology doctor and Primary for continued problems with your breathing. All discharge instructions reviewed with patient and/or family. Voiced understanding. Scripts Amoxicillin (Amoxicillin) 875 Mg Tablet 875 MG PO BID for COPD exacerbation for 10 Days, #20 TAB 0 Refills Prov: XIN LOAIZA MD 11/25/18 XIN LOAIZA MD Nov 24, 2018 22:57
[2018-11-24] MEDS ORDERED: RT-ALBUTEROL/IPRATROPIUM 3 ML (DUONEB) VIAL INH STA (23:05)
--- NOTE | 2018-11-24 23:57 | NUR ---
PT. REPORTED SHE IS HAVING PAIN WITH COUGHING, REQUESTING PAIN MEDICATIONS, AND AN ANTIBIOTIC AND THEN GO HOME.
[2018-11-25] MEDS ORDERED: KETOROLAC 60 MG/2 ML VIAL IM STA (00:14)
[2018-11-25] MEDS ORDERED: cefTRIAXone 1,000 MG/2.86 ml vial (IM ONLY) IM STA (00:14)
[2018-11-25] MEDS ORDERED: LIDOCAINE 1% INJ 20 ML 20 ML VIAL INJ ONE (00:15)
[2018-11-25] MEDS ORDERED: AMOX875T2 PO (00:19)
[2018-11-25 00:30] VITALS: BP 158/86
--- NOTE | 2018-11-25 06:58 | Diagnostic Imaging Report ---
INDICATION: Coughing. COMPARISON: 10/26/2018. TECHNIQUE: Frontal and lateral radiograph of the chest dated 11/24/2018. FINDINGS: Pacer device is again identified with the battery pack overlying left chest. The cardiac silhouette is enlarged, though stable. Central pulmonary vascular congestion is present, increased since the prior examination. Slightly increasing opacities within the right lung base. The left lung appears clear. No significant pleural effusion. No pneumothorax. Scattered osseous degenerative changes without acute osseous abnormality. IMPRESSION: Cardiomegaly with increasing central pulmonary vascular congestion. Findings may relate to early congestive heart failure/volume overload. Minimal right basilar atelectasis and/or edema. Additional postsurgical and chronic findings as above. Dictated by: Dictated on workstation # [id number]
== END 2018-11-25 00:32 | disposition home or self-care (01) ==
LOC: EDUNIT# 21:50 → ER FS 21:52
DX: J44.1 Chronic obstructive pulmonary disease with (acute) exacerbation (principal); R07.89 Other chest pain; I10 Essential (primary) hypertension; E11.9 Type 2 diabetes mellitus without complications; F41.9 Anxiety disorder, unspecified; F32.9 Major depressive disorder, single episode, unspecified; E03.9 Hypothyroidism, unspecified; Z90.89 Acquired absence of other organs; Z88.5 Allergy status to narcotic agent; Z88.8 Allergy status to other drugs, medicaments and biological substances; Z91.041 Radiographic dye allergy status; Z79.82 Long term (current) use of aspirin; Z79.01 Long term (current) use of anticoagulants; Z79.51 Long term (current) use of inhaled steroids; Z79.84 Long term (current) use of oral hypoglycemic drugs; Z79.52 Long term (current) use of systemic steroids; Z77.22 Contact with and (suspected) exposure to environmental tobacco smoke (acute) (chronic)
CPT/HCPCS: 71046; 94640

== ENCOUNTER 2019-01-15 16:54 | Emergency (ER) | payer MEDICARE, MEDICAID ==
[~2019-01-15] VITALS: Ht 171 cm; Wt 88.6 kg
[~2019-01-15 16:54] MED LIST changes: +AMOX875T2 PO
--- NOTE | 2019-01-15 17:10 | ED Respiratory ---
General Stated Complaint: SOB,COUGH Source: patient Exam Limitations: no limitations History of Present Illness Date Seen by Provider: Jan 15, 2019 Time Seen by Provider: 17:01 Initial Comments Patient presents ER by private conveyance with chief complaint of shortness of breath and productive cough without fever. She's had this for about a week. Dr. Ellis at [place] prescribed her Levaquin which she completed but she does not feel any better. She got a steroid shot and still does not feel better. She has not been tested for influenza. No chest x-ray. She has a history of COPD dependent on 3 L by nasal cannula at all times of oxygen and says 3 times a year she gets bad COPD exacerbation requiring hospitalization. She is not having any nausea chest pain abdominal pain diarrhea constipation. Allergies and Home Medications Allergies Coded Allergies: albuterol (Verified Allergy, Severe, 06/21/18) Heart Racing morphine (Verified Allergy, Mild, 06/21/18) Nausea Vomiting Uncoded Allergies: IV CONTRAST (Allergy, Unknown, 10/27/18) IVP DYE (Allergy, Unknown, 03/31/18) PLASTIC TAPE (Allergy, Unknown, 03/31/18) Home Medications Acyclovir 400 Mg Tablet, 400 MG PO BID, (Reported) Albuterol Sulfate 2.5 Mg/3 Ml Vial.neb, 2.5 MG INH Q4H, (Reported) Amoxicillin 875 Mg Tablet, 875 MG PO BID Prescribed by: XIN LOAIZA on 11/25/18 001 Apixaban 5 Mg Tab.ds.pk, 5 MG PO BID, (Reported) Aspirin 81 Mg Tab.chew, 81 MG PO DAILY, (Reported) Atorvastatin Calcium 40 Mg Tablet, 40 MG PO DAILY, (Reported) Azithromycin 250 Mg Tablet, 250 MG PO UD TAKE 2 TABLETS TODAY, THEN TAKE 1 TABLET DAILY FOR 4 MORE DAYS Prescribed by: KEYSHAWN LANDA on 06/21/18 1208 Azithromycin 500 Mg Tablet, 500 MG PO DAILY FOR INFECTION Prescribed by: CECILIO OTT on 07/09/1815 Benzonatate 100 Mg Capsule, 1-2 TAB PO TID Prescribed by: CECILIO OTT on 07/09/1815 Benzonatate 100 Mg Capsule, 100 MG PO Q6H PRN for COUGH Prescribed by: GANGA HALL on 01/15/19 191 Cefdinir 300 Mg Capsule, 300 MG PO BID Prescribed by: CECILIO OTT on 07/09/1815 Cholecalciferol (Vitamin D3) 1,000 Unit Tablet, 1,000 UNIT PO DAILY, (Reported) Docusate Sodium 100 Mg Capsule, 100 MG PO BID PRN, (Reported) Escitalopram Oxalate 10 Mg Tablet, 10 MG PO DAILY, (Reported) Fluticasone/Vilanterol 1 Each Blst.w.dev, 1 EACH IH DAILY, (Reported) Furosemide 40 Mg Tablet, 40 MG PO DAILY Prescribed by: KEYSHAWN LANDA on 06/21/18 1208 Guaifenesin 400 Mg Tablet, 400 MG PO BID PRN, (Reported) Guaifenesin/Dextromethorphan 1 Each Tbmp.12hr, 1 EACH PO BID Prescribed by: CECIILO OTT on 07/09/1815 Hydralazine HCl 50 Mg Tablet, 50 MG PO TID, (Reported) Ipratropium/Albuterol Sulfate 3 Ml Ampul.neb, 3 ML IH BID PRN for SHORTNESS OF BREATH, (Reported) Isosorbide Mononitrate 30 Mg Tab.er.24h, 30 MG PO DAILY, (Reported) Levothyroxine Sodium 25 Mcg Tablet, 25 MCG PO DAILY, (Reported) Lorazepam 1 Mg Tablet, 1 MG PO TID, (Reported) Metformin HCl 500 Mg Tab.er.24h, 500 MG PO DAILY, (Reported) Metoprolol Succinate 100 Mg Tab.er.24h, 100 MG PO DAILY, (Reported) Nitroglycerin 0.4 Mg Tab.subl, 0.4 MG SL PRN, (Reported) Victoria-3/Dha/Epa/Fish Oil 1 Each Capsule, 1 EACH PO DAILY, (Reported) Ondansetron 4 Mg Tab.rapdis, 4 MG PO PRN, (Reported) Oxycodone HCl/Acetaminophen 1 Each Tablet, 1 EACH PO Q4H PRN for PAIN-MODERATE, (Reported) Prednisone 10 Mg Tab, 10 MG PO DAILY Prescribed by: GANGA HALL on 05/31/182031 Prednisone 5 Mg Tablet, 5 MG PO UD 12 PILLS DAY 1, THEN DECREASE BY 1 PILL A DAY UNTIL GONE Prescribed by: CECILIO OTT on 07/09/1815 Promethazine HCl/Codeine 5 Ml Syrup, 5 ML PO Q4H, (Reported) Ranitidine HCl 150 Mg Tablet, 150 MG PO BID, (Reported) Sacubitril/Valsartan 1 Each Tablet, 1 TAB PO BID, (Reported) Sennosides 8.6 Mg Tablet, 8.6 MG PO PRN, (Reported) Spironolactone 25 Mg Tablet, 25 MG PO DAILY, (Reported) Tiotropium [place] 1 Inh Aerp, 1 INH IH DAILY, (Reported) Torsemide 20 Mg Tablet, 20 MG PO DAILY, (Reported) Patient Home Medication List Home Medication List Reviewed: Yes Review of Systems Review of Systems Constitutional: No chills, No diaphoresis, No fever EENTM: No ear pain, No eye pain Respiratory: cough, phlegm, short of breath, wheezing Cardiovascular: No chest pain, No palpitations Gastrointestinal: No abdominal pain, No nausea, No vomiting Genitourinary: No discharge, No dysuria Musculoskeletal: No back pain, No joint pain Psychiatric/Neurological: Denies Anxiety, Denies Depressed All Other Systems Reviewed Negative Unless Noted: Yes Past Qtvdusl-Bkbjgf-Xjdleu Hx Patient Social History Alcohol Use: Denies Use Recreational Drug Use: No Smoking Status: Current Everyday Smoker Type Used: Cigars 2nd Hand Smoke Exposure: Yes Recent Hopitalizations: No (09/17- AT [facility]) Immunizations Up To Date Date of Influenza Vaccine: Nov 08, 2017 Seasonal Allergies Seasonal Allergies: No Past Medical History Surgeries: Yes Adenoidectomy, Amputation, Angioplasty, Orthopedic Respiratory: Yes COPD Currently Using CPAP: No Currently Using BIPAP: No Cardiac: Yes Hypertension Neurological: No 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 0oz. 81.618441or; 31.00 BMI Method:Stated General Appearance: WD/WN, no apparent distress Eyes: Bilateral Eye Normal Inspection, Bilateral Eye PERRL, Bilateral Eye EOMI HEENT: PERRL/EOMI, normal ENT inspection, TMs normal, pharynx normal Neck: full range of motion, normal inspection Respiratory: no accessory muscle use, respiratory distress (mild), decreased breath sounds, wheezing, expiration (prolonged) Cardiovascular: normal peripheral pulses, regular rate, rhythm Extremities: normal range of motion, non-tender, other (right lower extremity prosthesis) Neurologic/Psychiatric: alert, normal mood/affect, oriented x 3 Skin: normal color, warm/dry Progress/Results/Core Measures Suspected Sepsis SIRS Temperature: Pulse: Respiratory Rate: Laboratory Tests 01/15/19 18:10: White Blood Count 14.4H Blood Pressure / Mean: Laboratory Tests 01/15/19 18:10: Creatinine 1.15, Platelet Count 238, Total Bilirubin < 0.2 Results/Orders Lab Results Laboratory Tests Test 01/15/19 18:10 Range/Units White Blood Count 14.4 H 4.3-11.0 10^3/uL Red Blood Count 4.80 4.35-5.85 10^6/uL Hemoglobin 12.7 11.5-16.0 G/DL Hematocrit 42 35-52 % Mean Corpuscular Volume 87 80-99 FL Mean Corpuscular Hemoglobin 26 25-34 PG Mean Corpuscular Hemoglobin Concent 31 L 32-36 G/DL Red Cell Distribution Width 14.0 10.0-14.5 % Platelet Count 238 130-400 10^3/uL Mean Platelet Volume 10.1 7.4-10.4 FL Neutrophils (%) (Auto) 67 42-75 % Lymphocytes (%) (Auto) 22 12-44 % Monocytes (%) (Auto) 11 0-12 % Eosinophils (%) (Auto) 0 0-10 % Basophils (%) (Auto) 0 0-10 % Neutrophils # (Auto) 9.6 H 1.8-7.8 X 10^3 Lymphocytes # (Auto) 3.2 1.0-4.0 X 10^3 Monocytes # (Auto) 1.5 H 0.0-1.0 X 10^3 Eosinophils # (Auto) 0.0 0.0-0.3 10^3/uL Basophils # (Auto) 0.1 0.0-0.1 10^3/uL Neutrophils % (Manual) 65 % Lymphocytes % (Manual) 25 % Monocytes % (Manual) 10 % Sodium Level 140 135-145 MMOL/L Potassium Level 4.0 3.6-5.0 MMOL/L Chloride Level 106 98-107 MMOL/L Carbon Dioxide Level 23 21-32 MMOL/L Anion Gap 11 5-14 MMOL/L Blood Urea Nitrogen 20 H 7-18 MG/DL Creatinine 1.15 0.60-1.30 MG/DL Estimat Glomerular Filtration Rate 57 BUN/Creatinine Ratio 17 Glucose Level 84 70-105 MG/DL Calcium Level 9.4 8.5-10.1 MG/DL Corrected Calcium 9.5 8.5-10.1 MG/DL Total Bilirubin < 0.2 0.1-1.0 MG/DL Aspartate Amino Transf (AST/SGOT) 14 5-34 U/L Alanine Aminotransferase (ALT/SGPT) 13 0-55 U/L Alkaline Phosphatase 151 H 40-136 U/L Pro-B-Type Natriuretic Peptide 1464.0 H <75.0 PG/ML Total Protein 6.7 6.4-8.2 GM/DL Albumin 3.9 3.2-4.5 GM/DL Micro Results Microbiology 01/15/19 Influenza Types A,B Antigen (FABIO) - Final, Complete My Orders Orders - GANGA HALL Albuterol/Ipra Inhalation Soln (Duoneb I (01/15/19 17:15) Svn Small Volume Nebulizer (01/15/19 17:04) O2 (01/15/19 17:04) Influenza A And B Antigens (01/15/19 17:04) Cbc With Automated Diff (01/15/19 17:04) Comprehensive Metabolic Panel (01/15/19 17:04) Chest 1 View Ap/Pa Only (01/15/19 17:04) Probnp Fs (01/15/19 17:31) Manual Differential (01/15/19 18:10) Fentanyl Injection (Sublimaze Injection (01/15/19 18:45) Fentanyl Injection (Sublimaze Injection (01/15/19 19:15) Methylprednisolone Acetate Inj (Depo-Med (01/15/19 19:15) Rx-Acetaminophen/Codeine (Rx-Tylenol #3) (01/15/19 19:15) Furosemide Injection (Lasix Injection) (01/15/19 19:15) Medications Given in ED Current Medications Medications Dose Ordered Sig/[place] Route Start Time Stop Time Status Last Admin Dose Admin Albuterol/ Ipratropium 3 ml ONCE ONCE INH 01/15/19 17:15 01/15/19 17:16 DC 01/15/19 17:15 3 ML Fentanyl Citrate 50 mcg ONCE ONCE IM 01/15/19 19:15 01/15/19 19:16 DC 01/15/19 19:09 50 MCG Furosemide 40 mg ONCE ONCE IM 01/15/19 19:15 01/15/19 19:16 DC 01/15/19 19:21 40 MG Methylprednisolone Acetate 40 mg ONCE ONCE IM 01/15/19 19:15 01/15/19 19:16 DC 01/15/19 19:21 40 MG Vital Signs/I&O 01/15/19 01/15/19 01/15/19 17:05 17:10 19:30 Temp 36.0 Pulse 75 80 Resp 22 20 B/P (MAP) 159/82 (107) 155/65 Pulse Ox 97 100 O2 Delivery Nasal Cannula Nasal Cannula O2 Flow Rate 3.00 3.00 3.00 FiO2 97 Capillary Refill : Progress Note #1: Time: 17:09 Progress Note Influenza swab, chest x-ray, labs looking for pneumonia versus bronchitis. She has recently been on steroids so we will expect some bump in the white count possibly. Albuterol treatment and reexamine her lungs. Progress Note #2: Time: 17:27 Progress Note After the breathing treatment her lung sounds are much improved. No longer having any wheezing. She has better air movement now. If she does not have any evidence of pneumonia I would consider extending her 5 day prednisone course with a shot of Depo-Medrol. She has requested something for pain for all the cou ghing. Progress Note #3: Time: 19:08 Progress Note Her BNP is marginally elevated above her baseline of 8-10K. She admits she has not taken her Lasix yet today. We will offer her an IM shot of Lasix versus just doubling her Lasix when she gets home tonight. COPD exacerbation. She has refused ABG. She is maintaining good oxygen sats on her baseline oxygen. She is alert oriented and we have given her return precautions. Depo-Medrol for COPD exacerbation. White count is elevated marginally secondary to steroids. No evidence of pneumonia. We will encourage close interval follow-up with primary care. Diagnostic Imaging Diagonstic Imaging: Xray Plain Films/CT/US/NM/MRI: chest (2v) Comments [facility]. POS [place], [place] POS NAME: SHIRA PAIGE [facility] REC#: [id number] PT STATUS: REG ER : 1955 PHYSICIAN: GANGA HALL MD ADMIT DATE: 01/15/19/ER FS Draft POSDate of Exam:01/15/19 CHEST 1 VIEW AP/PA ONLY Procedure: Chest 1 view AP/PA only. Indication: Shortness of breath and productive cough. Comparison: 11/24/2018. Findings: Stable left pectoral transvenous pacemaker/ICD and cardiomegaly. Visualized lungs are clear. Posterior lower lobes and left lung base are suboptimally evaluated on this portable exam. No pneumothorax or pleural effusion. Atherosclerotic aorta is unchanged. Impression: No acute cardiopulmonary process by portable radiography. Dictated on workstation # [id number] Dict: 01/15/191823 Trans: 01/15/191825 [facility] [id number] Interpreted by: GREG ALBRECHT MD Electronically signed by: Reviewed: Reviewed by Me Departure Impression Primary Impression: COPD with exacerbation Disposition: 01 HOME, SELF-CARE Condition: Stable Departure-Patient Inst. Decision time for Depature: 19:09 Referrals: NO,LOCAL PHYSICIAN (PCP/Family) Primary Care Physician Patient Instructions: Exacerbation of COPD (DC) Add. Discharge Instructions: Finished taking your steroids. This steroid shot will last for about 5-7 days. If your shortness of breath gets worse then you need to return to the ER. Follow-up with primary care in the next 1-2 weeks for recheck. Tessalon Perles 1 Capsule every 6 hours as needed for cough. Scripts Benzonatate (TESSALON PERLES) 100 Mg Capsule 100 MG PO Q6H PRN for COUGH, #30 CAP 0 Refills Prov: GANGA HALL 01/15/19 GANGA HALL Jan 15, 2019 17:10 POS
[2019-01-15] MEDS ORDERED: RT-ALBUTEROL/IPRATROPIUM 3 ML (DUONEB) VIAL INH ONE (17:15)
[2019-01-15 18:18] LABS: BASOPHILS % (AUTO) 0 % (0-10); EOSINOPHILS % (AUTO) 0 % (0-10); HEMATOCRIT 42 % (35-52); HEMOGLOBIN 12.7 G/DL (11.5-16.0); LYMPHOCYTES % (AUTO) 22 % (12-44); MEAN CORPUSCULAR HEMOGLOBIN 26 PG (25-34); MEAN CORPUSCULAR HGB CONC 31 G/DL (32-36); MEAN CORPUSCULAR VOLUME 87 FL (80-99); MEAN PLATELET VOLUME 10.1 FL (7.4-10.4); MONOCYTES % (AUTO) 11 % (0-12); NEUTROPHILS % (AUTO) 67 % (42-75); PLATELET COUNT 238 10^3/uL (130-400); WHITE BLOOD COUNT 14.4 10^3/uL (4.3-11.0)
[2019-01-15 18:19] LABS: BASOPHILS # (AUTO) 0.1 10^3/uL (0.0-0.1); LYMPHOCYTES # (AUTO) 3.2 X 10^3 (1.0-4.0); MONOCYTES # (AUTO) 1.5 X 10^3 (0.0-1.0); NEUTROPHILS # (AUTO) 9.6 X 10^3 (1.8-7.8)
--- NOTE | 2019-01-15 18:27 | Diagnostic Imaging Report ---
Procedure: Chest 1 view AP/PA only. Indication: Shortness of breath and productive cough. Comparison: 11/24/2018. Findings: Stable left pectoral transvenous pacemaker/ICD and cardiomegaly. Visualized lungs are clear. Posterior lower lobes and left lung base are suboptimally evaluated on this portable exam. No pneumothorax or pleural effusion. Atherosclerotic aorta is unchanged. Impression: No acute cardiopulmonary process by portable radiography. Dictated by: Dictated on workstation # [id number]
[2019-01-15 18:44] LABS: NEUTROPHILS % (MANUAL) 65 %
[2019-01-15 18:45] LABS: LYMPHOCYTES % (MANUAL) 25 %; MONOCYTES % (MANUAL) 10 %
[2019-01-15] MEDS ORDERED: fentaNYL INJECTION 100 MCG/2 ML AMP IVP ONE (18:45)
[2019-01-15 18:46] LABS: BUN/CREATININE RATIO 17; CARBON DIOXIDE 23 MMOL/L (21-32); CHLORIDE 106 MMOL/L (98-107); CREATININE SERUM 1.15 MG/DL (0.60-1.30); GFR ESTIMATED 57; SODIUM 140 MMOL/L (135-145)
[2019-01-15 18:47] LABS: ALANINE AMINOTRANSFERASE 13 U/L (0-55); ALBUMIN 3.9 GM/DL (3.2-4.5); ALKALINE PHOSPHATASE 151 U/L (40-136); BILIRUBIN,TOTAL < 0.2 MG/DL (0.1-1.0); CALCIUM 9.4 MG/DL (8.5-10.1); GLUCOSE 84 MG/DL (70-105); TOTAL PROTEIN 6.7 GM/DL (6.4-8.2)
[2019-01-15] MEDS ORDERED: BENZ100C18 PO (19:10)
[2019-01-15] MEDS ORDERED: methylPREDNISolone 40 MG/ML (DEPO MEDROL) VIAL IM ONE (19:15)
[2019-01-15] MEDS ORDERED: FUROSEMIDE 40 MG/4 ML INJ (LASIX) IM ONE (19:15)
[2019-01-15] MEDS ORDERED: fentaNYL INJECTION 100 MCG/2 ML AMP IM ONE (19:15)
[2019-01-15] MEDS ORDERED: RX-ACETAMINOPHEN/CODEINE TAB PPK #4 PO SCH (19:15)
[2019-01-15 19:30] VITALS: BP 155/65
== END 2019-01-15 19:30 | disposition home or self-care (01) ==
LOC: EDUNIT# 16:54 → ER FS 16:56
DX: J44.1 Chronic obstructive pulmonary disease with (acute) exacerbation (principal); I10 Essential (primary) hypertension; E11.9 Type 2 diabetes mellitus without complications; E03.9 Hypothyroidism, unspecified; F41.9 Anxiety disorder, unspecified; F32.9 Major depressive disorder, single episode, unspecified; F17.290 Nicotine dependence, other tobacco product, uncomplicated; Z90.89 Acquired absence of other organs; Z88.5 Allergy status to narcotic agent; Z91.041 Radiographic dye allergy status; Z88.8 Allergy status to other drugs, medicaments and biological substances; Z79.01 Long term (current) use of anticoagulants; Z79.82 Long term (current) use of aspirin; Z79.51 Long term (current) use of inhaled steroids; Z79.84 Long term (current) use of oral hypoglycemic drugs; Z79.52 Long term (current) use of systemic steroids
CPT/HCPCS: 36415; 71045; 80053; 83880; 85007; 85027; 87804

== ENCOUNTER 2019-01-25 19:51 | Emergency (ER) | payer MEDICARE, MEDICAID, OTHER ==
[~2019-01-25] VITALS: Ht 170 cm; Wt 77.0 kg
[2019-01-25] MEDS ORDERED: NITROGLYCERIN 2% OINT 1 GM UNIT DOSE PACKET TOP STA (19:59)
[2019-01-25] MEDS ORDERED: fentaNYL INJECTION 100 MCG/2 ML AMP IVP STA ×3 (19:59→23:53)
[2019-01-25] MEDS ORDERED: ASPIRIN 81 MG CHEW (CHILDREN'S ASA) PO ONE (20:00)
--- NOTE | 2019-01-25 20:12 | ED Chest Pain ---
General Stated Complaint: CHEST PAIN Source: patient, EMS History of Present Illness Date Seen by Provider: Jan 25, 2019 Time Seen by Provider: 19:51 Initial Comments 63-year-old female presenting by EMS to the emergency department with complaints of increased shortness of breath and pain going into her left shoulder since around 1849. She states that she is also on her fourth round of antibiotics for her COPD. She just recently also saw her bird trapper for 3 month checkup up in [place] at [facility]. She reports that the pain going into her left shoulder is similar to pains that she has had in the past with having a heart attack. She does not have any nitroglycerin that is not out of date at home. She has tried breathing treatments today with little improvement in her shortness of breath. She did not have anything to try for the pain into her shoulder tonight. She called 911 when her symptoms kept getting worse. The pain into her shoulder has been constant since about 0 tonight. She denies any nausea or vomiting. She feels pain is worse when she moves around. Allergies and Home Medications Allergies Coded Allergies: albuterol (Verified Allergy, Severe, 06/21/18) Heart Racing morphine (Verified Allergy, Mild, 06/21/18) Nausea Vomiting Uncoded Allergies: IV CONTRAST (Allergy, Unknown, 10/27/18) IVP DYE (Allergy, Unknown, 03/31/18) PLASTIC TAPE (Allergy, Unknown, 03/31/18) Home Medications Acyclovir 400 Mg Tablet, 400 MG PO BID, (Reported) Albuterol Sulfate 2.5 Mg/3 Ml Vial.neb, 2.5 MG INH Q4H, (Reported) Amoxicillin 875 Mg Tablet, 875 MG PO BID Prescribed by: XIN LOAIZA on 11/25/18 0019 Apixaban 5 Mg Tab.ds.pk, 5 MG PO BID, (Reported) Aspirin 81 Mg Tab.chew, 81 MG PO DAILY, (Reported) Atorvastatin Calcium 40 Mg Tablet, 40 MG PO DAILY, (Reported) Azithromycin 250 Mg Tablet, 250 MG PO UD TAKE 2 TABLETS TODAY, THEN TAKE 1 TABLET DAILY FOR 4 MORE DAYS Prescribed by: KEYSHAWN LANDA on 06/21/18 1208 Azithromycin 500 Mg Tablet, 500 MG PO DAILY FOR INFECTION Prescribed by: CECILIO OTT on 07/09/18 0016 Benzonatate 100 Mg Capsule, 1-2 TAB PO TID Prescribed by: CECILIO OTT on 07/09/1815 Benzonatate 100 Mg Capsule, 100 MG PO Q6H PRN for COUGH Prescribed by: GANGA HALL on 01/15/191909 Cefdinir 300 Mg Capsule, 300 MG PO BID Prescribed by: CECILIO OTT on 07/09/1815 Cholecalciferol (Vitamin D3) 1,000 Unit Tablet, 1,000 UNIT PO DAILY, (Reported) Docusate Sodium 100 Mg Capsule, 100 MG PO BID PRN, (Reported) Escitalopram Oxalate 10 Mg Tablet, 10 MG PO DAILY, (Reported) Fluticasone/Vilanterol 1 Each Blst.w.dev, 1 EACH IH DAILY, (Reported) Furosemide 40 Mg Tablet, 40 MG PO DAILY Prescribed by: KEYSHAWN LANDA on 06/21/18 120 Guaifenesin 400 Mg Tablet, 400 MG PO BID PRN, (Reported) Guaifenesin/Dextromethorphan 1 Each Tbmp.12hr, 1 EACH PO BID Prescribed by: CECILIO OTT on 07/09/1815 Hydralazine HCl 50 Mg Tablet, 50 MG PO TID, (Reported) Ipratropium/Albuterol Sulfate 3 Ml Ampul.neb, 3 ML IH BID PRN for SHORTNESS OF BREATH, (Reported) Isosorbide Mononitrate 30 Mg Tab.er.24h, 30 MG PO DAILY, (Reported) Levothyroxine Sodium 25 Mcg Tablet, 25 MCG PO DAILY, (Reported) Lorazepam 1 Mg Tablet, 1 MG PO TID, (Reported) Metformin HCl 500 Mg Tab.er.24h, 500 MG PO DAILY, (Reported) Metoprolol Succinate 100 Mg Tab.er.24h, 100 MG PO DAILY, (Reported) Nitroglycerin 0.4 Mg Tab.subl, 0.4 MG SL PRN, (Reported) [place]-3/Dha/Epa/Fish Oil 1 Each Capsule, 1 EACH PO DAILY, (Reported) Ondansetron 4 Mg Tab.rapdis, 4 MG PO PRN, (Reported) Oxycodone HCl/Acetaminophen 1 Each Tablet, 1 EACH PO Q4H PRN for PAIN-MODERATE, (Reported) Prednisone 10 Mg Tab, 10 MG PO DAILY Prescribed by: GANGA HALL on 05/31/182031 Prednisone 5 Mg Tablet, 5 MG PO UD 12 PILLS DAY 1, THEN DECREASE BY 1 PILL A DAY UNTIL GONE Prescribed by: CECILIO OTT on 07/09/18 0016 Promethazine HCl/Codeine 5 Ml Syrup, 5 ML PO Q4H, (Reported) Ranitidine HCl 150 Mg Tablet, 150 MG PO BID, (Reported) Sacubitril/Valsartan 1 Each Tablet, 1 TAB PO BID, (Reported) Sennosides 8.6 Mg Tablet, 8.6 MG PO PRN, (Reported) Spironolactone 25 Mg Tablet, 25 MG PO DAILY, (Reported) Tiotropium [place] 1 Inh Aerp, 1 INH IH DAILY, (Reported) Torsemide 20 Mg Tablet, 20 MG PO DAILY, (Reported) Patient Home Medication List Home Medication List Reviewed: Yes Review of Systems Review of Systems Constitutional: No chills, No fever; malaise EENTM: No Blurred Vision, No Nose Congestion Respiratory: Cough (chronic), Shortness of Air, SOA With Exertion; Denies Stridor; Wheezing Cardiovascular: See HPI, Chest Pain, Irregular Heart Rate, Palpitations Gastrointestinal: See HPI Genitourinary: No Symptoms Reported Musculoskeletal: see HPI Skin: no symptoms reported Psychiatric/Neurological: Denies Headache Endocrine: No Symptoms Reported Past Pgcyzth-Fkuvtr-Lyufpr Hx Past Med/Social Hx: Reviewed Nursing Past Med/Soc Hx Patient Social History Type Used: Cigars 2nd Hand Smoke Exposure: Yes Recent Foreign Travel: No Contact w/Someone Who Travel: No Recent Hopitalizations: No (09/17- AT [facility]) Immunizations Up To Date Date of Influenza Vaccine: Nov 08, 2017 Seasonal Allergies Seasonal Allergies: No Past Medical History Surgeries: Yes Adenoidectomy, Amputation, Angioplasty, Orthopedic Respiratory: Yes COPD Currently Using CPAP: No Currently Using BIPAP: No Cardiac: Yes Hypertension Neurological: No CAR 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 0oz. 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 Norm as Tested Skin: Normal Color, Warm/Dry Progress/Results/Core Measures Results/Orders Lab Results Laboratory Tests Test 01/25/19 20:08 Range/Units White Blood Count 14.9 H 4.3-11.0 10^3/uL Red Blood Count 4.98 4.35-5.85 10^6/uL Hemoglobin 13.2 11.5-16.0 G/DL Hematocrit 42 35-52 % Mean Corpuscular Volume 84 80-99 FL Mean Corpuscular Hemoglobin 27 25-34 PG Mean Corpuscular Hemoglobin Concent 32 32-36 G/DL Red Cell Distribution Width 14.7 H 10.0-14.5 % Platelet Count 239 130-400 10^3/uL Mean Platelet Volume 10.8 H 7.4-10.4 FL Neutrophils (%) (Auto) 55 42-75 % Lymphocytes (%) (Auto) 35 12-44 % Monocytes (%) (Auto) 9 0-12 % Eosinophils (%) (Auto) 0 0-10 % Basophils (%) (Auto) 0 0-10 % Neutrophils # (Auto) 8.2 H 1.8-7.8 X 10^3 Lymphocytes # (Auto) 5.2 H 1.0-4.0 X 10^3 Monocytes # (Auto) 1.3 H 0.0-1.0 X 10^3 Eosinophils # (Auto) 0.1 0.0-0.3 10^3/uL Basophils # (Auto) 0.1 0.0-0.1 10^3/uL Neutrophils % (Manual) 51 % Lymphocytes % (Manual) 42 % Monocytes % (Manual) 7 % Eosinophils % (Manual) 0 % Basophils % (Manual) 0 % Band Neutrophils 0 % Prothrombin Time 13.5 12.2-14.7 SEC INR Comment 1.0 0.8-1.4 Activated Partial Thromboplast Time 23 L 24-35 SEC Sodium Level 142 135-145 MMOL/L Potassium Level 3.9 3.6-5.0 MMOL/L Chloride Level 101 98-107 MMOL/L Carbon Dioxide Level 29 21-32 MMOL/L Anion Gap 12 5-14 MMOL/L Blood Urea Nitrogen 19 H 7-18 MG/DL Creatinine 1.48 H 0.60-1.30 MG/DL Estimat Glomerular Filtration Rate 43 BUN/Creatinine Ratio 13 Glucose Level 129 H 70-105 MG/DL Calcium Level 9.6 8.5-10.1 MG/DL Corrected Calcium 9.4 8.5-10.1 MG/DL Magnesium Level 1.9 1.6-2.4 MG/DL Total Bilirubin 0.2 0.1-1.0 MG/DL Aspartate Amino Transf (AST/SGOT) 19 5-34 U/L Alanine Aminotransferase (ALT/SGPT) 16 0-55 U/L Alkaline Phosphatase 148 H 40-136 U/L Troponin I 0.43 *H <0.30 NG/ML Pro-B-Type Natriuretic Peptide 932.5 H <75.0 PG/ML Total Protein 6.7 6.4-8.2 GM/DL Albumin 4.3 3.2-4.5 GM/DL Lipase 51 8-78 U/L My Orders Orders - XIN LOAIZA MD Cbc With Automated Diff (01/25/19 19:55) Magnesium (01/25/19 19:55) Chest 1 View Ap/Pa Only (01/25/19 19:55) Ekg Tracing (01/25/19 19:55) Comprehensive Metabolic Panel (01/25/19 19:55) Protime With Inr (01/25/19 19:55) Partial Thromboplastin Time (01/25/19 19:55) O2 (01/25/19 19:55) Monitor-Rhythm Ecg Trace Only (01/25/19 19:55) Aspirin Chewable Tablet (Baby Aspirin Ch (01/25/19 20:00) Ed Iv/Invasive Line Start (01/25/19 19:55) Lipase (01/25/19 19:55) Troponin I Fs (01/25/19 19:55) Probnp Fs (01/25/19 19:55) Fentanyl Injection (Sublimaze Injection (01/25/19 19:59) Nitroglycerin Ointment (Nitrobid Ointme (01/25/19 19:59) Manual Differential (01/25/19 20:08) Fentanyl Injection (Sublimaze Injection (01/25/19 21:18) Fentanyl Injection (Sublimaze Injection (01/25/19 23:53) Medications Given in ED Current Medications Medications Dose Ordered Sig/[place] Start Time Stop Time Status Last Admin Dose Admin Aspirin 324 mg ONCE ONCE PO 01/25/19 20:00 01/25/19 20:01 DC 01/25/19 20:13 324 MG Vital Signs/I&O 01/25/19 01/25/19 01/25/19 19:51 19:51 22:12 Temp 35.9 36.1 Pulse 84 86 Resp 20 20 B/P (MAP) 164/43 (83) 168/93 Pulse Ox 98 98 98 O2 Delivery Nasal Cannula Nasal Cannula Nasal Cannula O2 Flow Rate 4.00 4.00 Progress Progress Note #1: Progress Note Obtain basic labs, electrocardiogram and chest x-ray. Her pain will try 324 mg of aspirin, fentanyl 50 g, nitroglycerin 1 inch paste to help with her blood pressure and pain. Progress Note #2: Progress Note Symptoms were improved with treatment in the ED. Her chest x-ray appeared stable with cardiomegaly but no effusion or infiltrate. Her CBC showed a mild elevation of her white blood cell count but she had just finished a course of steroids yesterday. Her chemistry panel showed mild elevation of her creatinine to 1.48. Her BNP was elevated. This was still around her baseline comparing it to prior records in the system. The troponin was elevated to 0.43 which is above her baseline of <0.3. Her electrocardiogram did have changes showing that she was not 100 percent paced where as on her previous electrocardiogram tracings she had been 100% paced. Unfortunately her pacemaker defibrillator is a [place] [employer] model and we do not have a way to interrogate it here to see why it was not functioning properly. Since she follows with [facility], and they have a way to interrogate her pacemaker/defibrillator she requests that we contact them about transfer. Progress Note #3: Time: 21:[address] Jose Juan Bear was working transfer center and he accepted the patient for transfer to [facility]. Initial ECG Impression Date: Jan 25, 2019 Initial ECG Impression Time: 19:47 Initial ECG Rate: 82 Initial ECG Rhythm: Normal Sinus Initial ECG Comparisson: Changed Comment Sinus rhythm with heart rate of 82 bpm. Short [place] interval of 82 ms. Multiple premature complexes ventricular and supraventricular. Nonspecific intraventricular conduction delay. No acute ST elevation. QT interval 468 ms. QT corrected interval 547 ms. This is changed from prior EKG tracings in the electronic medical record which showed that she was always 100% paced rhythm previously. Diagnostic Imaging Diagonstic Imaging: Xray Plain Films/CT/US/NM/MRI: chest Comments NAME: SHIRA PAIGE [facility] REC#: [id number] PT STATUS: REG ER : 1955 PHYSICIAN: XIN LOAIZA MD ADMIT DATE: 01/25/19/ER FS Draft Date of Exam:01/25/19 CHEST 1 VIEW AP/PA ONLY INDICATION: Heart flutter. COMPARISON: 01/15/2019 TECHNIQUE: Single frontal view of the chest. FINDINGS: Lung volumes are large. No focal consolidation is seen. There is no pleural effusion or pneumothorax. There is mild cardiomegaly which is stable. The AICD leads appear to be in stable position. IMPRESSION: 1. No acute pulmonary abnormality. 2. Stable mild cardiomegaly. Dictated on workstation # [id number] Dict: 01/25/192009 Trans: 01/25/192016 [id number] Interpreted by: EVARISTO FIGUEROA MD Electronically signed by: Departure Impression Primary Impression: Chest pain Qualified Codes: R07.9 - Chest pain, unspecified Additional Impressions: Elevated troponin I level Pacemaker malfunction Qualified Codes: T82.111A - Breakdown (mechanical) of cardiac pulse generator (battery), initial encounter Disposition: XFER SHT-TRM HOSP Condition: Stable Transfer Transfer Reason: Patient preference Time Spoke to Accepting Phy: 21:27 Transfer Progress Notes [address] Jose Juan Bear at the transfer center for [facility]. He took the information on the patient and stated that he would work on finding a bed for the patient and call back once he had that arranged. In the meantime, will continue to monitor the patient and try to keep her pain controlled. Transfer Facility: [facility] Method of Transfer: EMS Departure-Patient Inst. Referrals: NO,LOCAL PHYSICIAN (PCP/Family) Primary Care Physician XIN LOAIZA MD Jan 25, 2019 20:12
--- NOTE | 2019-01-25 20:17 | Diagnostic Imaging Report ---
INDICATION: Heart flutter. COMPARISON: 01/15/2019 TECHNIQUE: Single frontal view of the chest. FINDINGS: Lung volumes are large. No focal consolidation is seen. There is no pleural effusion or pneumothorax. There is mild cardiomegaly which is stable. The AICD leads appear to be in stable position. IMPRESSION: 1. No acute pulmonary abnormality. 2. Stable mild cardiomegaly. Dictated by: Dictated on workstation # [id number]
[2019-01-25 20:29] LABS: BASOPHILS % (AUTO) 0 % (0-10); EOSINOPHILS % (AUTO) 0 % (0-10); HEMATOCRIT 42 % (35-52); HEMOGLOBIN 13.2 G/DL (11.5-16.0); LYMPHOCYTES % (AUTO) 35 % (12-44); MEAN CORPUSCULAR HEMOGLOBIN 27 PG (25-34); MEAN CORPUSCULAR HGB CONC 32 G/DL (32-36); MEAN CORPUSCULAR VOLUME 84 FL (80-99); MEAN PLATELET VOLUME 10.8 FL (7.4-10.4); MONOCYTES % (AUTO) 9 % (0-12); NEUTROPHILS % (AUTO) 55 % (42-75); PLATELET COUNT 239 10^3/uL (130-400); RED CELL DISTRIBUTION WIDTH 14.7 % (10.0-14.5); WHITE BLOOD COUNT 14.9 10^3/uL (4.3-11.0)
[2019-01-25 20:30] LABS: BASOPHILS # (AUTO) 0.1 10^3/uL (0.0-0.1); EOSINOPHILS # (AUTO) 0.1 10^3/uL (0.0-0.3); LYMPHOCYTES # (AUTO) 5.2 X 10^3 (1.0-4.0); MONOCYTES # (AUTO) 1.3 X 10^3 (0.0-1.0); NEUTROPHILS # (AUTO) 8.2 X 10^3 (1.8-7.8)
[2019-01-25 20:37] LABS: PROTHROMBIN TIME PATIENT 13.5 SEC (12.2-14.7)
[2019-01-25 20:44] LABS: BAND NEUTROPHILS 0 %; BASOPHILS % (MANUAL) 0 %; EOSINOPHILS % (MANUAL) 0 %; LYMPHOCYTES % (MANUAL) 42 %; MONOCYTES % (MANUAL) 7 %; NEUTROPHILS % (MANUAL) 51 %
[2019-01-25 20:45] LABS: CALCIUM 9.6 MG/DL (8.5-10.1); CREATININE SERUM 1.48 MG/DL (0.60-1.30); MAGNESIUM 1.9 MG/DL (1.6-2.4); POTASSIUM 3.9 MMOL/L (3.6-5.0)
[2019-01-25 20:46] LABS: ALBUMIN 4.3 GM/DL (3.2-4.5); BILIRUBIN,TOTAL 0.2 MG/DL (0.1-1.0); TOTAL PROTEIN 6.7 GM/DL (6.4-8.2)
--- NOTE | 2019-01-25 21:28 | NUR ---
PT. HAD REPORTED THAT HER PAIN WAS NOW A 7.
[2019-01-25 22:12] VITALS: BP 168/93
--- NOTE | 2019-01-25 23:28 | NUR ---
WAITING ON EMS THEY HAD TO TAKE A PT TO [place] AND WILL BE HERE TO TAKE THIS PT TO [facility] SOON THEY RETURN FROM [place]. PT. AWARE AND UNDERSTANDS.
== END 2019-01-26 00:10 | disposition short-term general hospital (02) ==
LOC: EDUNIT# 19:51 → ER FS 19:53
DX: T82.111A Breakdown (mechanical) of cardiac pulse generator (battery), initial encounter (principal); R07.9 Chest pain, unspecified; R79.89 Other specified abnormal findings of blood chemistry; I10 Essential (primary) hypertension; E11.9 Type 2 diabetes mellitus without complications; J44.9 Chronic obstructive pulmonary disease, unspecified; E03.9 Hypothyroidism, unspecified; F41.9 Anxiety disorder, unspecified; F32.9 Major depressive disorder, single episode, unspecified; Z90.89 Acquired absence of other organs; Z88.5 Allergy status to narcotic agent; Z88.8 Allergy status to other drugs, medicaments and biological substances; Z91.041 Radiographic dye allergy status; Z79.01 Long term (current) use of anticoagulants; Z79.82 Long term (current) use of aspirin; Z79.51 Long term (current) use of inhaled steroids; Z79.84 Long term (current) use of oral hypoglycemic drugs; Z79.52 Long term (current) use of systemic steroids; Z77.22 Contact with and (suspected) exposure to environmental tobacco smoke (acute) (chronic)
CPT/HCPCS: 36415; 71045; 80053; 83690; 83735; 83880; 84484; 85007; 85027; 85610; 85730; 93005; 93041

== ENCOUNTER 2019-02-09 19:21 | Emergency (ER) | payer MEDICARE, MEDICAID, OTHER ==
[~2019-02-09] VITALS: Ht 157 cm; Wt 102.0 kg
[2019-02-09] MEDS ORDERED: DOPamine DRIP 250 ML IV ONE (19:34)
--- NOTE | 2019-02-09 19:45 | Diagnostic Imaging Report ---
INDICATION: Intubated and unresponsive COMPARISON: 01/25/2019 FINDINGS: Single view of the chest demonstrates cardiac pacemaker in place. ET tube appears to be in the mid trachea. The heart remains enlarged. Lungs are clear. There is no pneumothorax. The right costophrenic angle is omitted from the radiograph. IMPRESSION: 1. ET tube appears to be in the mid trachea 2. Cardiac enlargement without pulmonary edema or infiltrate. Dictated by: Dictated on workstation # [id number]
--- NOTE | 2019-02-09 19:47 | ED General ---
General Chief Complaint: Unresponsive Stated Complaint: PULMONARY ANEMIA Nursing Triage Note: PT BROUGHT IN BY EMS FOUND UNRESPONSIVE ON SEEN. PT'S FAMILY FOUND HER AND COULD NOT WAKE HER UP. LAST KNOWN WELL TIME 1630 BY A CAREGIVER. Nursing Sepsis Screen: No Definite Risk Source of Information: Patient Exam Limitations: No Limitations History of Present Illness Date Seen by Provider: Feb 09, 2019 Time Seen by Provider: 19:43 Initial Comments Patient was found by her family unresponsive with labored breathing. They called EMS. EMS found her and acute respiratory distress and unconscious. They intubated her with the aid of Norcuron and Versed. Sats initially improved. Patient was hypertensive on EMS arrival. They called for air transport. The patient seemed to worsen before air transport arrived (blood pressure dropped, oxygen saturation dropped, and Capnometry alessandro). She was brought here for resuscitation. Patient was intubated and paralyzed and sedated and unable to provide any history. Blood pressure arrival was in the 70s. Family is unavailable for history. According to her old records she has history of diabetes mellitus pacemaker coronary artery disease and COPD. She has right BKA. Recently hospitalized at [facility] for chest pain and elevated troponin. Allergies and Home Medications Allergies Coded Allergies: albuterol (Verified Allergy, Severe, 06/21/18) Heart Racing morphine (Verified Allergy, Mild, 06/21/18) Nausea Vomiting Uncoded Allergies: IV CONTRAST (Allergy, Unknown, 10/27/18) IVP DYE (Allergy, Unknown, 03/31/18) PLASTIC TAPE (Allergy, Unknown, 03/31/18) Home Medications Acyclovir 400 Mg Tablet, 400 MG PO BID, (Reported) Albuterol Sulfate 2.5 Mg/3 Ml Vial.neb, 2.5 MG INH Q4H, (Reported) Amoxicillin 875 Mg Tablet, 875 MG PO BID Prescribed by: XIN LOAIZA on 11/25/18 0019 Apixaban 5 Mg Tab.ds.pk, 5 MG PO BID, (Reported) Aspirin 81 Mg Tab.chew, 81 MG PO DAILY, (Reported) Atorvastatin Calcium 40 Mg Tablet, 40 MG PO DAILY, (Reported) Azithromycin 250 Mg Tablet, 250 MG PO UD TAKE 2 TABLETS TODAY, THEN TAKE 1 TABLET DAILY FOR 4 MORE DAYS Prescribed by: KEYSHAWN LANDA on 06/21/18 1208 Azithromycin 500 Mg Tablet, 500 MG PO DAILY FOR INFECTION Prescribed by: CECILIO OTT on 07/09/1815 Benzonatate 100 Mg Capsule, 1-2 TAB PO TID Prescribed by: CECILIO OTT on 07/09/1815 Benzonatate 100 Mg Capsule, 100 MG PO Q6H PRN for COUGH Prescribed by: GANGA HALL on 01/15/191909 Cefdinir 300 Mg Capsule, 300 MG PO BID Prescribed by: CECILIO OTT on 07/09/1815 Cholecalciferol (Vitamin D3) 1,000 Unit Tablet, 1,000 UNIT PO DAILY, (Reported) Docusate Sodium 100 Mg Capsule, 100 MG PO BID PRN, (Reported) Escitalopram Oxalate 10 Mg Tablet, 10 MG PO DAILY, (Reported) Fluticasone/Vilanterol 1 Each Blst.w.dev, 1 EACH IH DAILY, (Reported) Furosemide 40 Mg Tablet, 40 MG PO DAILY Prescribed by: KEYSHAWN LANDA on 06/21/18 1208 Guaifenesin 400 Mg Tablet, 400 MG PO BID PRN, (Reported) Guaifenesin/Dextromethorphan 1 Each Tbmp.12hr, 1 EACH PO BID Prescribed by: CECILIO OTT on 07/09/1815 Hydralazine HCl 50 Mg Tablet, 50 MG PO TID, (Reported) Ipratropium/Albuterol Sulfate 3 Ml Ampul.neb, 3 ML IH BID PRN for SHORTNESS OF BREATH, (Reported) Isosorbide Mononitrate 30 Mg Tab.er.24h, 30 MG PO DAILY, (Reported) Levothyroxine Sodium 25 Mcg Tablet, 25 MCG PO DAILY, (Reported) Lorazepam 1 Mg Tablet, 1 MG PO TID, (Reported) Metformin HCl 500 Mg Tab.er.24h, 500 MG PO DAILY, (Reported) Metoprolol Succinate 100 Mg Tab.er.24h, 100 MG PO DAILY, (Reported) Nitroglycerin 0.4 Mg Tab.subl, 0.4 MG SL PRN, (Reported) [place]-3/Dha/Epa/Fish Oil 1 Each Capsule, 1 EACH PO DAILY, (Reported) Ondansetron 4 Mg Tab.rapdis, 4 MG PO PRN, (Reported) Oxycodone HCl/Acetaminophen 1 Each Tablet, 1 EACH PO Q4H PRN for PAIN-MODERATE, (Reported) Prednisone 10 Mg Tab, 10 MG PO DAILY Prescribed by: GANGA HALL on 05/31/182031 Prednisone 5 Mg Tablet, 5 MG PO UD 12 PILLS DAY 1, THEN DECREASE BY 1 PILL A DAY UNTIL GONE Prescribed by: CECILIO OTT on 07/09/18 0016 Promethazine HCl/Codeine 5 Ml Syrup, 5 ML PO Q4H, (Reported) Ranitidine HCl 150 Mg Tablet, 150 MG PO BID, (Reported) Sacubitril/Valsartan 1 Each Tablet, 1 TAB PO BID, (Reported) Sennosides 8.6 Mg Tablet, 8.6 MG PO PRN, (Reported) Spironolactone 25 Mg Tablet, 25 MG PO DAILY, (Reported) Tiotropium Shiro 1 Inh Aerp, 1 INH IH DAILY, (Reported) Torsemide 20 Mg Tablet, 20 MG PO DAILY, (Reported) Patient Home Medication List Home Medication List Reviewed: Yes Review of Systems Review of Systems Constitutional: other (patient unable to provide history or review of systems due to her condition.) Respiratory: see HPI Past [id number] Hx Patient Social History Type Used: Cigars 2nd Hand Smoke Exposure: Yes Recent Foreign Travel: No Contact w/Someone Who Travel: No Recent Infectious Disease Expo: No Recent Hopitalizations: Yes Physical Abuse: No Sexual Abuse: No Immunizations Up To Date Date of Influenza Vaccine: Nov 08, 2017 Seasonal Allergies Seasonal Allergies: No Past Medical History Surgeries: Yes Adenoidectomy, Amputation, Angioplasty, Orthopedic Respiratory: Yes COPD Currently Using CPAP: No Currently Using BIPAP: No Cardiac: Yes Hypertension Neurological: No [employer]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 0oz. [id number]; 41.00 BMI Method:Stated General Appearance: Chronically ill, Obese, Other (sedated intubated paralyzed warm extremities.) HEENT: PERRL/EOMI, Pharynx Normal Neck: Supple Respiratory: Rhonci, Wheezing Cardiovascular: Regular Rate, Rhythm, No Edema Gastrointestinal: Soft Extremity: No Pedal Edema, Other (right BKA) Neurologic/Psychiatric: Other (paralyzed sedated, flaccid extremities) Skin: Normal Color, Warm/Dry Focused Exam Lactate Level 02/09/19 19:35: Lactic Acid Level 1.12 Lactic Acid Level Laboratory Tests Test 02/09/19 19:35 Lactic Acid Level 1.12 MMOL/L (0.50-2.00) Progress/Results/Core Measures Suspected Sepsis Recent Fever Within 48 Hours: No Infection Criteria Present: None New/Unexplained Altered Menta: Yes Sepsis Screen: No Definite Risk SIRS Temperature: Pulse: 82 Respiratory Rate: 18 Laboratory Tests 02/09/19 19:35: White Blood Count 10.8 Blood Pressure 65 /22 Mean: 36 02/09/19 19:35: Lactic Acid Level 1.12 Laboratory Tests 02/09/19 19:35: Creatinine 1.05, Platelet Count 166, Total Bilirubin 0.2 Results/Orders Lab Results Laboratory Tests Test 02/09/19 19:35 02/09/19 19:45 Range/Units White Blood Count 10.8 4.3-11.0 10^3/uL Red Blood Count 4.00 L 4.35-5.85 10^6/uL Hemoglobin 10.6 L 11.5-16.0 G/DL Hematocrit 37 35-52 % Mean Corpuscular Volume 92 80-99 FL Mean Corpuscular Hemoglobin 27 25-34 PG Mean Corpuscular Hemoglobin Concent 29 L 32-36 G/DL Red Cell Distribution Width 15.4 H 10.0-14.5 % Platelet Count 166 130-400 10^3/uL Mean Platelet Volume 9.8 7.4-10.4 FL Neutrophils (%) (Auto) 72 42-75 % Lymphocytes (%) (Auto) 20 12-44 % Monocytes (%) (Auto) 8 0-12 % Eosinophils (%) (Auto) 0 0-10 % Basophils (%) (Auto) 0 0-10 % Neutrophils # (Auto) 7.8 1.8-7.8 X 10^3 Lymphocytes # (Auto) 2.1 1.0-4.0 X 10^3 Monocytes # (Auto) 0.8 0.0-1.0 X 10^3 Eosinophils # (Auto) 0.0 0.0-0.3 10^3/uL Basophils # (Auto) 0.0 0.0-0.1 10^3/uL Sodium Level 141 135-145 MMOL/L Potassium Level 4.8 3.6-5.0 MMOL/L Chloride Level 106 98-107 MMOL/L Carbon Dioxide Level 27 21-32 MMOL/L Anion Gap 8 5-14 MMOL/L Blood Urea Nitrogen 22 H 7-18 MG/DL Creatinine 1.05 0.60-1.30 MG/DL Estimat Glomerular Filtration Rate > 60 BUN/Creatinine Ratio 21 Glucose Level 159 H 70-105 MG/DL Lactic Acid Level 1.12 0.50-2.00 MMOL/L Calcium Level 8.2 L 8.5-10.1 MG/DL Corrected Calcium 8.7 8.5-10.1 MG/DL Magnesium Level 1.8 1.6-2.4 MG/DL Total Bilirubin 0.2 0.1-1.0 MG/DL Aspartate Amino Transf (AST/SGOT) 27 5-34 U/L Alanine Aminotransferase (ALT/SGPT) 20 0-55 U/L Alkaline Phosphatase 83 40-136 U/L Troponin I 0.53 *H <0.30 NG/ML Pro-B-Type Natriuretic Peptide 1387.0 H <75.0 PG/ML Total Protein 5.1 L 6.4-8.2 GM/DL Albumin 3.4 3.2-4.5 GM/DL Urine Color DARK YELLOW Urine Clarity CLEAR Urine pH 5.5 5-9 Urine Specific [place] >=1.030 1.016-1.022 Urine Protein TRACE H NEGATIVE Urine Glucose (UA) NEGATIVE NEGATIVE Urine Ketones NEGATIVE NEGATIVE Urine Nitrite NEGATIVE NEGATIVE Urine Bilirubin NEGATIVE NEGATIVE Urine Urobilinogen 0.2 < = 1.0 MG/DL Urine Leukocyte Esterase NEGATIVE NEGATIVE Urine RBC (Auto) NEGATIVE NEGATIVE Urine RBC NONE /HPF Urine WBC 0-2 /HPF Urine Squamous Epithelial Cells RARE /HPF Urine Crystals PRESENT H /LPF Urine Amorphous Sediment FEW CHANG URATES H /LPF Urine Bacteria NEGATIVE /HPF Urine Casts PRESENT /LPF Urine Hyaline Casts 10-25 H /LPF Urine Mucus MODERATE H /LPF Urine Culture Indicated NO My Orders Orders - MOSES PARKER MD Cbc With Automated Diff (02/09/19 19:25) Comprehensive Metabolic Panel (02/09/19 19:25) Magnesium (02/09/19 19:25) Ua Culture If Indicated (02/09/19 19:25) Probnp Fs (02/09/19 19:25) Chest 1 View Ap/Pa Only (02/09/19 19:25) Ekg Tracing (02/09/19 19:25) Continuous Ekg Monitoring (02/09/19 19:25) Troponin I Fs (02/09/19 19:25) Champion Cath (02/09/19 19:25) Dopamine Drip (Dopamine Drip) (02/09/19 19:34) Lactic Acid Analyzer (02/09/19 19:59) Piperacillin/Tazobactam (Bulk) (Zosyn In (02/09/19 20:15) Methylprednisolone Sod Succ (Solu-Medrol (02/09/19 20:15) Aspirin Suppository (Aspirin Suppository (02/09/19 20:06) Piperacillin Sodium/Tazobactam (Zosyn Vi (02/09/19 20:05) Ns (Ivpb) (Sodium Chloride 0.9% Ivpb Bag (02/09/19 20:06) Aspirin Tablet (Aspirin Tablet) (02/09/19 20:08) Aspirin Tablet (Aspirin Tablet) (02/09/19 20:15) Ns Iv 1000 Ml (Sodium Chloride 0.9%) (02/09/19 20:21) Ns Iv 1000 Ml (Sodium Chloride 0.9%) (02/09/19 20:30) Ns Iv 1000 Ml (Sodium Chloride 0.9%) (02/09/19 20:30) Ns Iv 1000 Ml (Sodium Chloride 0.9%) (02/09/19 20:26) Norepinephrine (Levophed) (02/09/19 20:45) Norepinephrine (Levophed) (02/09/19 20:32) Ns (Ivpb) (Sodium Chloride 0.9%) (02/09/19 20:32) Medications Given in ED Current Medications Medications Dose Ordered Sig/North Route Start Time Stop Time Status Last Admin Dose Admin Aspirin 325 mg ONCE ONCE NG 02/09/19 20:15 02/09/19 20:16 DC 02/09/19 20:18 325 MG Methylprednisolone Sodium Succinate 125 mg ONCE ONCE IVP 02/09/19 20:15 02/09/19 20:16 DC 02/09/19 20:18 125 MG Piperacillin Sod/ Tazobactam Sod 4.5 gm/Sodium Chloride 120 ml @ 240 mls/hr ONCE ONCE IV 02/09/19 20:15 02/09/19 20:44 DC 02/09/19 20:20 240 MLS/HR Sodium Chloride 1,000 ml @ ud STK-MED ONCE .ROUTE 02/09/19 20:21 02/09/19 20:26 DC 02/09/19 20:30 999 MLS/HR Vital Signs/I&O 02/09/19 02/09/19 19:21 20:43 Temp 35.7 Pulse 82 63 Resp 18 12 B/P (MAP) 65/22 (36) 84/69 Pulse Ox 92 93 O2 Delivery Mechanical Ventilator Mechanical Ventilator Capillary Refill : Less Than 3 Seconds Blood Pressure Mean: 36 Progress Note : Time: 20:30 Progress Note Blood pressure stabilized with IV fluid bolus feeding through her intraosseous lines. She needs to be transferred to higher level OF care. She was recently discharged from [facility]. I thought transferring her there would be the most sensible solution. [facility] I called her back around 8 p.m. with the new EKG findings of STEMI. I talked with her at 815 she says there is no ICU beds at any of her facilities. I then contacted [facility] transfer center at [address] Barbosa caddy/caddie supervisor at [facility] at 830 p.m. He accepted the transfer at 840 p.m. Patient's blood pressure initially responsive to fluid therapy dropped again to the 60s. She was started on a Levophed drip. She remains paralyzed and sedated. Critical care time spent with this patient was 1 hour. ECG Initial ECG Impression Date: Feb 09, 2019 Initial ECG Impression Time: 19:50 Initial ECG Rate: 68 Initial ECG Rhythm: Normal Sinus Initial ECG Impression: Nonspecific Changes EKG : EKG Time: 20:00 Rate: 68 Rhythm: Normal Sinus Intervals: Normal ECG Impression: Acute MS Comment Repeat EKG showed ST elevation in V5 and V6 consistent with STEMI. Critical Care Note Critical Care Total Time (minutes) 60 MINUTES Departure Impression Primary Impression: Respiratory failure Additional Impressions: STEMI (ST elevation myocardial infarction) COPD (chronic obstructive pulmonary disease) Disposition: XF SHT-TRM HOSP Condition: Critical Transfer Transfer Reason: Exceeds level of care Time Spoke to Accepting Phy: 18:40 Transfer Progress Notes I spoke with Dr. Barbosa (sports physician) accepted transfer it 840 p.m. Air transport is here. Patient was loaded by air ambulance crew now. She is on a Levophed drip is intubated and sedated. Aspirin was given via her NG tube. She was covered for COPD exacerbation with Solu-Medrol and Zosyn. Suspect right ventricular MS given her EKG findings and transient response to fluids Transfer Time: 20:44 Transfer Facility: [facility] Method of Transfer: Air Departure-Patient Inst. Referrals: NO,LOCAL PHYSICIAN (PCP/Family) Primary Care Physician MOSES PARKER MD Feb 09, 2019 19:47
[2019-02-09 19:49] LABS: HEMATOCRIT 37 % (35-52); HEMOGLOBIN 10.6 G/DL (11.5-16.0); MEAN CORPUSCULAR HEMOGLOBIN 27 PG (25-34); WHITE BLOOD COUNT 10.8 10^3/uL (4.3-11.0)
[2019-02-09 19:50] LABS: BASOPHILS % (AUTO) 0 % (0-10); EOSINOPHILS % (AUTO) 0 % (0-10); LYMPHOCYTES # (AUTO) 2.1 X 10^3 (1.0-4.0); LYMPHOCYTES % (AUTO) 20 % (12-44); MEAN CORPUSCULAR HGB CONC 29 G/DL (32-36); MEAN CORPUSCULAR VOLUME 92 FL (80-99); MEAN PLATELET VOLUME 9.8 FL (7.4-10.4); MONOCYTES # (AUTO) 0.8 X 10^3 (0.0-1.0); MONOCYTES % (AUTO) 8 % (0-12); NEUTROPHILS # (AUTO) 7.8 X 10^3 (1.8-7.8); NEUTROPHILS % (AUTO) 72 % (42-75); PLATELET COUNT 166 10^3/uL (130-400); RED CELL DISTRIBUTION WIDTH 15.4 % (10.0-14.5)
[2019-02-09 20:00] VITALS: BP 132/91
[2019-02-09 20:00] LABS: BACTERIA,URINE NEGATIVE /HPF; BILIRUBIN,URINE NEGATIVE (NEGATIVE); CLARITY,URINE CLEAR; COLOR,URINE DARK YELLOW; GLUCOSE, URINE (UA) NEGATIVE (NEGATIVE); KETONES,URINE NEGATIVE (NEGATIVE); LEUKOCYTE ESTERASE ,URINE NEGATIVE (NEGATIVE); NITRITE,URINE NEGATIVE (NEGATIVE); PH,URINE 5.5 (5-9); PROTEIN,URINE TRACE (NEGATIVE); SQUAMOUS EPITHELIAL CELL,UR RARE /HPF; WBC,URINE 0-2 /HPF
[2019-02-09 20:01] LABS: AMORPHOUS SEDIMENT,UR FEW AMOR URATES /LPF
[2019-02-09 20:05] LABS: CARBON DIOXIDE 27 MMOL/L (21-32); CHLORIDE 106 MMOL/L (98-107); POTASSIUM 4.8 MMOL/L (3.6-5.0); SODIUM 141 MMOL/L (135-145)
[2019-02-09] MEDS ORDERED: PIPERACILLIN/TAZO 4.5 GM VIAL (ZOSYN) IV ONE (20:05)
[2019-02-09 20:06] LABS: ALANINE AMINOTRANSFERASE 20 U/L (0-55); ALBUMIN 3.4 GM/DL (3.2-4.5); ALKALINE PHOSPHATASE 83 U/L (40-136); BILIRUBIN,TOTAL 0.2 MG/DL (0.1-1.0); BUN/CREATININE RATIO 21; CALCIUM 8.2 MG/DL (8.5-10.1); CREATININE SERUM 1.05 MG/DL (0.60-1.30); GFR ESTIMATED > 60; GLUCOSE 159 MG/DL (70-105); MAGNESIUM 1.8 MG/DL (1.6-2.4); TOTAL PROTEIN 5.1 GM/DL (6.4-8.2)
[2019-02-09] MEDS ORDERED: NS (IVPB) 100 ML ONE (20:06)
[2019-02-09] MEDS ORDERED: ASPIRIN 300 MG (5 GR) SUPPOSITORY PR STA (20:06)
[2019-02-09] MEDS ORDERED: ASPIRIN 325 MG (5 GR) TABLET ONE (20:08)
[2019-02-09] MEDS ORDERED: PIPERACILLIN/TAZOBACTAM (BULK) 4.5 GM in NS (IVPB) 100 ML IV ONE (20:15)
[2019-02-09] MEDS ORDERED: ASPIRIN 325 MG (5 GR) TABLET NG ONE (20:15)
[2019-02-09] MEDS ORDERED: methylPREDNISolone 125 MG (Solu-MEDROL) VIAL IVP ONE (20:15)
[2019-02-09] MEDS ORDERED: NS IV 1000 ML 1,000 ML ONE ×2 (20:21→20:26)
[2019-02-09] MEDS ORDERED: NS IV 1000 ML 1,000 ML IV SCH (20:30)
[2019-02-09] MEDS: NS IV 1000 ML 1,000 ML IV SCH ×2 (20:31→21:13)
[2019-02-09] MEDS ORDERED: NOREPINEPHRINE 4 MG/4 ML (LEVOPHED) AMP IV ONE (20:32)
[2019-02-09] MEDS ORDERED: NS (IVPB) 250 ML ONE (20:32)
[2019-02-09 20:43] VITALS: BP 84/69
[2019-02-09] MEDS ORDERED: NOREPINEPHRINE 4 MG in NS (IVPB) 250 ML IV SCH (20:45)
== END 2019-02-09 21:20 | disposition short-term general hospital (02) ==
LOC: EDUNIT# 19:21 → ER FS 19:24
DX: J96.90 Respiratory failure, unspecified, unspecified whether with hypoxia or hypercapnia (principal); I21.3 ST elevation (STEMI) myocardial infarction of unspecified site; J44.9 Chronic obstructive pulmonary disease, unspecified; E11.9 Type 2 diabetes mellitus without complications; I25.10 Atherosclerotic heart disease of native coronary artery without angina pectoris; I10 Essential (primary) hypertension; F41.9 Anxiety disorder, unspecified; F32.9 Major depressive disorder, single episode, unspecified; E03.9 Hypothyroidism, unspecified; Z95.0 Presence of cardiac pacemaker; Z89.511 Acquired absence of right leg below knee; Z88.5 Allergy status to narcotic agent; Z91.041 Radiographic dye allergy status; Z88.8 Allergy status to other drugs, medicaments and biological substances; Z79.01 Long term (current) use of anticoagulants; Z79.82 Long term (current) use of aspirin; Z79.51 Long term (current) use of inhaled steroids; Z79.84 Long term (current) use of oral hypoglycemic drugs; Z79.52 Long term (current) use of systemic steroids; Z77.22 Contact with and (suspected) exposure to environmental tobacco smoke (acute) (chronic); Z90.49 Acquired absence of other specified parts of digestive tract
CPT/HCPCS: 36415; 36680; 51702; 71045; 80053; 81000; 83605; 83735; 83880; 84484; 85025; 96365; 96375

== ENCOUNTER 2019-02-23 00:27 | Emergency (ER) | payer MEDICARE, MEDICAID, OTHER ==
[~2019-02-23] VITALS: Ht 170.1 cm; Wt 81.8 kg
[~2019-02-23 00:27] MED LIST changes: +METF500T19; +METF500T19 PO; -METF500T8; -METF500T8 PO; -METO-395; -METO-395 PO; +MTP100TCR; +MTP100TCR PO; -RANI-515 PO; +RANI-609 PO; -SACU1TAB; +SACU1TAB2
[2019-02-23] MEDS ORDERED: AMIODARONE 450 MG/9 ML (CORDARONE) VIAL IV ONE ×2 (00:32→00:44)
[2019-02-23] MEDS ORDERED: D5W 100 ML IVPB 100 ML IV ONE (00:34)
[2019-02-23] MEDS ORDERED: AMIODARONE (OMNICELL DRIP KIT) 150 MG/3 ML IV ONE (00:43)
[2019-02-23] MEDS ORDERED: D5W IV SOLUTION (EXCEL) 250 ML IV ONE (00:45)
[2019-02-23] MEDS ORDERED: fentaNYL INJECTION 100 MCG/2 ML AMP IVP PRN (01:00)
[2019-02-23 01:01] LABS: HEMOGLOBIN 12.7 G/DL (11.5-16.0); MEAN CORPUSCULAR HEMOGLOBIN 27 PG (25-34); WHITE BLOOD COUNT 11.8 10^3/uL (4.3-11.0)
[2019-02-23 01:02] LABS: BASOPHILS # (AUTO) 0.1 10^3/uL (0.0-0.1); BASOPHILS % (AUTO) 1 % (0-10); EOSINOPHILS % (AUTO) 0 % (0-10); HEMATOCRIT 42 % (35-52); LYMPHOCYTES # (AUTO) 6.7 X 10^3 (1.0-4.0); LYMPHOCYTES % (AUTO) 56 % (12-44); MEAN CORPUSCULAR HGB CONC 30 G/DL (32-36); MEAN CORPUSCULAR VOLUME 88 FL (80-99); MEAN PLATELET VOLUME 10.6 FL (7.4-10.4); MONOCYTES # (AUTO) 0.9 X 10^3 (0.0-1.0); MONOCYTES % (AUTO) 7 % (0-12); NEUTROPHILS # (AUTO) 4.1 X 10^3 (1.8-7.8); NEUTROPHILS % (AUTO) 34 % (42-75); PLATELET COUNT 171 10^3/uL (130-400); RED CELL DISTRIBUTION WIDTH 15.1 % (10.0-14.5)
[2019-02-23 01:17] LABS: ATYPICAL LYMPHOCYTES 3 %; BAND NEUTROPHILS 0 %; BASOPHILS % (MANUAL) 0 %; EOSINOPHILS % (MANUAL) 0 %; LYMPHOCYTES % (MANUAL) 58 %; METAMYELOCYTES % 1 %; MONOCYTES % (MANUAL) 5 %; NEUTROPHILS % (MANUAL) 32 %
[2019-02-23 01:18] LABS: ELLIPT/OVALOCYTES SLIGHT; POIKILOCYTOSIS SLIGHT; SCHISTOCYTES RARE
--- NOTE | 2019-02-23 01:21 | ED Cardiac General ---
History of Present Illness General Chief Complaint: Cardiac/General Problems Stated Complaint: DEFIBRILLATOR FIRING History of Present Illness Date Seen by Provider: Feb 23, 2019 Time Seen by Provider: 00:40 Initial Comments Patient in by EMS states her defibrillator had fired 5 times she is congestive heart failure COPD on home oxygen with an implantable defibrillator on [place]ule[place] course she was placed on amiodarone after her recent admission for respiratory failure and did note that it was firing at home in here was not firing sustained V. tach and difficult IV access. Timing/Duration: 1-3 hours Severity: severe Location: substernal Activities at Onset: none Prior CP/Workup: heart attack Associated Systoms: No Chest Pain; Diaphoresis; No Nausea/Vomiting, No Shortness of Air, No Syncope Allergies and Home Medications Allergies Coded Allergies: albuterol (Verified Allergy, Severe, 06/21/18) Heart Racing morphine (Verified Allergy, Mild, 06/21/18) Nausea Vomiting Uncoded Allergies: IV CONTRAST (Allergy, Unknown, 10/27/18) IVP DYE (Allergy, Unknown, 03/31/18) PLASTIC TAPE (Allergy, Unknown, 03/31/18) Home Medications Acyclovir 400 Mg Tablet, 400 MG PO BID, (Reported) Albuterol Sulfate 2.5 Mg/3 Ml Vial.neb, 2.5 MG INH Q4H, (Reported) Amoxicillin 875 Mg Tablet, 875 MG PO BID Prescribed by: XIN LOAIZA on 11/25/18 001 Apixaban 5 Mg Tab.ds.pk, 5 MG PO BID, (Reported) Aspirin 81 Mg Tab.chew, 81 MG PO DAILY, (Reported) Atorvastatin Calcium 40 Mg Tablet, 40 MG PO DAILY, (Reported) Azithromycin 250 Mg Tablet, 250 MG PO UD TAKE 2 TABLETS TODAY, THEN TAKE 1 TABLET DAILY FOR 4 MORE DAYS Prescribed by: KEYSHAWN LANDA on 06/21/18 1208 Azithromycin 500 Mg Tablet, 500 MG PO DAILY FOR INFECTION Prescribed by: CECILIO OTT on 07/09/1815 Benzonatate 100 Mg Capsule, 1-2 TAB PO TID Prescribed by: CECILIO OTT on 07/09/1815 Benzonatate 100 Mg Capsule, 100 MG PO Q6H PRN for COUGH Prescribed by: GANGA HALL on 01/15/191909 Cefdinir 300 Mg Capsule, 300 MG PO BID Prescribed by: CECILIO OTT on 07/09/1815 Cholecalciferol (Vitamin D3) 1,000 Unit Tablet, 1,000 UNIT PO DAILY, (Reported) Docusate Sodium 100 Mg Capsule, 100 MG PO BID PRN, (Reported) Escitalopram Oxalate 10 Mg Tablet, 10 MG PO DAILY, (Reported) Fluticasone/Vilanterol 1 Each Blst.w.dev, 1 EACH IH DAILY, (Reported) Furosemide 40 Mg Tablet, 40 MG PO DAILY Prescribed by: KEYSHAWN LANDA on 06/21/18 1208 Guaifenesin 400 Mg Tablet, 400 MG PO BID PRN, (Reported) Guaifenesin/Dextromethorphan 1 Each Tbmp.12hr, 1 EACH PO BID Prescribed by: CECILIO OTT on 07/09/1815 Hydralazine HCl 50 Mg Tablet, 50 MG PO TID, (Reported) Ipratropium/Albuterol Sulfate 3 Ml Ampul.neb, 3 ML IH BID PRN for SHORTNESS OF BREATH, (Reported) Isosorbide Mononitrate 30 Mg Tab.er.24h, 30 MG PO DAILY, (Reported) Levothyroxine Sodium 25 Mcg Tablet, 25 MCG PO DAILY, (Reported) Lorazepam 1 Mg Tablet, 1 MG PO TID, (Reported) Metformin HCl 500 Mg Tab.er.24h, 500 MG PO DAILY, (Reported) Metoprolol Succinate 100 Mg Tab.er.24h, 100 MG PO DAILY, (Reported) Nitroglycerin 0.4 Mg Tab.subl, 0.4 MG SL PRN, (Reported) [place]-3/Dha/Epa/Fish Oil 1 Each Capsule, 1 EACH PO DAILY, (Reported) Ondansetron 4 Mg Tab.rapdis, 4 MG PO PRN, (Reported) Oxycodone HCl/Acetaminophen 1 Each Tablet, 1 EACH PO Q4H PRN for PAIN-MODERATE, (Reported) Prednisone 10 Mg Tab, 10 MG PO DAILY Prescribed by: GANGA HALL on 05/31/182031 Prednisone 5 Mg Tablet, 5 MG PO UD 12 PILLS DAY 1, THEN DECREASE BY 1 PILL A DAY UNTIL GONE Prescribed by: CECILIO OTT on 07/09/1815 Promethazine HCl/Codeine 5 Ml Syrup, 5 ML PO Q4H, (Reported) Ranitidine HCl 150 Mg Tablet, 150 MG PO BID, (Reported) Sacubitril/Valsartan 1 Each Tablet, 1 TAB PO BID, (Reported) Sennosides 8.6 Mg Tablet, 8.6 MG PO PRN, (Reported) Spironolactone 25 Mg Tablet, 25 MG PO DAILY, (Reported) Tiotropium [place] 1 Inh Aerp, 1 INH IH DAILY, (Reported) Torsemide 20 Mg Tablet, 20 MG PO DAILY, (Reported) Patient Home Medication List Home Medication List Reviewed: Yes Review of Systems Review of Systems Constitutional: diaphoresis, malaise, weakness EENTM: No Blurred Vision, No Double Vision, No Throat Pain Respiratory: Denies Cough; Shortness of Air; Denies Wheezing Cardiovascular: Irregular Heart Rate Gastrointestinal: Denies Abdominal Pain, Denies Diarrhea, Denies Nausea, Denies Vomiting Genitourinary: Denies Burning, Denies Hematuria Musculoskeletal: No muscle stiffness; muscle weakness Skin: No dryness Psychiatric/Neurological: Denies Anxiety Past Edjsgaa-Xibqhd-Wwufcj Hx Past Med/Social Hx: Reviewed Nursing Past Med/Soc Hx Patient Social History Type Used: Cigars 2nd Hand Smoke Exposure: Yes Recent Foreign Travel: No Contact w/Someone Who Travel: No Recent Hopitalizations: Yes Immunizations Up To Date Date of Influenza Vaccine: Nov 08, 2017 Seasonal Allergies Seasonal Allergies: No Past Medical History Surgeries: Yes Adenoidectomy, Amputation, Angioplasty, Orthopedic Respiratory: Yes COPD Currently Using CPAP: No Currently Using BIPAP: No Cardiac: Yes Hypertension 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 0oz. [id number]; 41.00 BMI Method:Stated General Appearance: WD/WN, Moderate Distress HEENT: Normal ENT Inspection, Pharynx Normal Neck: Normal Inspection, Non Tender Respiratory: No Respiratory Distress; No Respiratory Distress; Rhonci, Wheezing Cardiovascular: Irregularly Irregular Gastrointestinal: Normal Bowel Sounds, Non Tender, Soft Extremity: No Calf Tenderness; Pedal Edema Neurologic/Psychiatric: Alert, Oriented x3 Skin: Normal Color, Cool, Damp Procedures/Interventions Date of ETT Placement: Feb 09, 2019 Time of ETT Placement: 1914 Progress/Results/Core Measures Results/Orders Lab Results Laboratory Tests Test 02/23/19 00:50 Range/Units White Blood Count 11.8 H 4.3-11.0 10^3/uL Red Blood Count 4.75 4.35-5.85 10^6/uL Hemoglobin 12.7 11.5-16.0 G/DL Hematocrit 42 35-52 % Mean Corpuscular Volume 88 80-99 FL Mean Corpuscular Hemoglobin 27 25-34 PG Mean Corpuscular Hemoglobin Concent 30 L 32-36 G/DL Red Cell Distribution Width 15.1 H 10.0-14.5 % Platelet Count 171 130-400 10^3/uL Mean Platelet Volume 10.6 H 7.4-10.4 FL Neutrophils (%) (Auto) 34 L 42-75 % Lymphocytes (%) (Auto) 56 H 12-44 % Monocytes (%) (Auto) 7 0-12 % Eosinophils (%) (Auto) 0 0-10 % Basophils (%) (Auto) 1 0-10 % Neutrophils # (Auto) 4.1 1.8-7.8 X 10^3 Lymphocytes # (Auto) 6.7 H 1.0-4.0 X 10^3 Monocytes # (Auto) 0.9 0.0-1.0 X 10^3 Eosinophils # (Auto) 0.0 0.0-0.3 10^3/uL Basophils # (Auto) 0.1 0.0-0.1 10^3/uL Neutrophils % (Manual) 32 % Lymphocytes % (Manual) 58 % Monocytes % (Manual) 5 % Eosinophils % (Manual) 0 % Basophils % (Manual) 0 % Metamyelocytes % 1 % Band Neutrophils 0 % Atypical Lymphocytes 3 % Poikilocytosis SLIGHT Elliptocytes SLIGHT Schistocytes RARE Sodium Level 138 135-145 MMOL/L Potassium Level 4.3 3.6-5.0 MMOL/L Chloride Level 102 98-107 MMOL/L Carbon Dioxide Level 20 L 21-32 MMOL/L Anion Gap 16 H 5-14 MMOL/L Blood Urea Nitrogen 8 7-18 MG/DL Creatinine 1.36 H 0.60-1.30 MG/DL Estimat Glomerular Filtration Rate 47 BUN/Creatinine Ratio 6 Glucose Level 173 H 70-105 MG/DL Calcium Level 8.9 8.5-10.1 MG/DL Corrected Calcium 9.1 8.5-10.1 MG/DL Magnesium Level 1.9 1.6-2.4 MG/DL Total Bilirubin 0.3 0.1-1.0 MG/DL Aspartate Amino Transf (AST/SGOT) 24 5-34 U/L Alanine Aminotransferase (ALT/SGPT) 22 0-55 U/L Alkaline Phosphatase 105 40-136 U/L Troponin I 109.00 *H <0.30 NG/ML Pro-B-Type Natriuretic Peptide 648.8 H <75.0 PG/ML Total Protein 6.2 L 6.4-8.2 GM/DL Albumin 3.7 3.2-4.5 GM/DL My Orders Orders - MADDIE OLVERA JR, MD Amiodarone Injection (Cordarone Injectio (02/23/19 00:32) D5w 100 Ml Ivpb (Dextrose 5% Water Iv So (02/23/19 00:34) Amiodarone For Bolus (Cordarone Bolus) (02/23/19 00:43) Amiodarone Injection (Cordarone Injectio (02/23/19 00:44) D5w Iv Solution ([place]) (Dextrose 5% [place] (02/23/19 00:45) Fentanyl Injection (Sublimaze Injection (02/23/19 01:00) Cbc And Manual Diff (02/23/19 00:55) Comprehensive Metabolic Panel (02/23/19 00:55) Magnesium (02/23/19 00:55) Troponin I Fs (02/23/19 00:55) Ekg Tracing (02/23/19 00:55) Chest 1 View Ap/Pa Only (02/23/19 00:55) Probnp Fs (02/23/19 01:23) Ekg Tracing (02/23/19 01:30) Medications Given in ED Current Medications Medications Dose Ordered Sig/North Route Start Time Stop Time Status Last Admin Dose Admin Amiodarone HCl 150 mg STK-MED ONCE IV 02/23/19 00:43 02/23/19 00:48 DC 02/23/19 01:02 150 MG Amiodarone HCl 450 mg STK-MED ONCE IV 02/23/19 00:32 02/23/19 00:37 DC 02/23/19 01:03 450 MG Dextrose 100 ml @ ud STK-MED ONCE IV 02/23/19 00:34 02/23/19 00:39 DC 02/23/19 01:03 16.7 MLS/HR Fentanyl Citrate 25 mcg Q1H PRN IVP 02/23/19 01:00 02/23/19 01:04 25 MCG Vital Signs/I&O 02/23/19 01:08 Temp 36.3 Pulse 180 Resp 24 B/P (MAP) 122/89 (100) Pulse Ox 100 O2 Delivery Nasal Cannula Initial ECG Impression Date: Feb 23, 2019 Initial ECG Impression Time: 00:34 Initial ECG Rhythm: V.Tach Initial ECG Intervals Ventricular tachycardia EKG : EKG Time: 01:31 Rate: 128 Rhythm: rhythm rather indeterminant looks as if it could be an atrial fibrillation Diagnostic Imaging Diagonstic Imaging: Xray Plain Films/CT/US/NM/MRI: chest Comments Mild cardiomegaly very similar to previous exams questionable little increase in the right lower lobe markings but not enough to be concerned at this Departure Impression Primary Impression: Ventricular tachycardia Additional Impressions: Congestive heart failure Qualified Codes: I50.9 - Heart failure, unspecified COPD (chronic obstructive pulmonary disease) Qualified Codes: J44.9 - Chronic obstructive pulmonary disease, unspecified Implantable cardioverter-defibrillator discharge Disposition: XFER SHT-TRM HOSP Condition: Stable Transfer Transfer Reason: Exceeds level of care Time Spoke to Accepting Phy: 02:00 Transfer Progress Notes Accepted [facility] accepting physician Dr. Powers cardiopulmonary technologist also talk with Dr. Hutchison who accepted in transfer as well Transfer Facility: [facility] facility Method of Transfer: Air Departure-Patient Inst. Decision time for Depature: 01:20 Referrals: NO,LOCAL PHYSICIAN (PCP) Primary Care Physician MADDIE OLVERA JR, MD Feb 23, 2019 01:21
[2019-02-23 01:24] LABS: CALCIUM 8.9 MG/DL (8.5-10.1); CREATININE SERUM 1.36 MG/DL (0.60-1.30); MAGNESIUM 1.9 MG/DL (1.6-2.4); POTASSIUM 4.3 MMOL/L (3.6-5.0)
[2019-02-23 01:25] LABS: ALBUMIN 3.7 GM/DL (3.2-4.5); BILIRUBIN,TOTAL 0.3 MG/DL (0.1-1.0); TOTAL PROTEIN 6.2 GM/DL (6.4-8.2)
[2019-02-23 02:09] VITALS: BP 110/71
[2019-02-23] MEDS ORDERED: LORazepam INJ 2 MG/ML (ATIVAN) VIAL IVP PRN (02:15)
--- NOTE | 2019-02-23 06:29 | Diagnostic Imaging Report ---
INDICATION: Cardiac pacemaker, cardiac enlargement COMPARISON: 02/09/2019 FINDINGS: Single view of the chest demonstrates stable cardiac enlargement without pulmonary edema or infiltrate. Pacemaker stable. There is no pneumothorax or effusion. ET tube has been removed. Osseous structures are stable. IMPRESSION: Stable cardiac enlargement without pulmonary edema or infiltrate. Dictated by: Dictated on workstation # [id number]
== END 2019-02-23 02:30 | disposition short-term general hospital (02) ==
LOC: EDUNIT# 00:27 → ER FS 00:32
DX: I47.2 Ventricular tachycardia (principal); I11.0 Hypertensive heart disease with heart failure; I50.9 Heart failure, unspecified; J44.9 Chronic obstructive pulmonary disease, unspecified; E11.9 Type 2 diabetes mellitus without complications; E03.9 Hypothyroidism, unspecified; F41.9 Anxiety disorder, unspecified; F32.9 Major depressive disorder, single episode, unspecified; Z95.810 Presence of automatic (implantable) cardiac defibrillator; Z88.8 Allergy status to other drugs, medicaments and biological substances; Z88.5 Allergy status to narcotic agent; Z91.041 Radiographic dye allergy status; Z79.01 Long term (current) use of anticoagulants; Z79.82 Long term (current) use of aspirin; Z79.51 Long term (current) use of inhaled steroids; Z79.84 Long term (current) use of oral hypoglycemic drugs; Z79.52 Long term (current) use of systemic steroids; Z77.22 Contact with and (suspected) exposure to environmental tobacco smoke (acute) (chronic); Z90.89 Acquired absence of other organs
CPT/HCPCS: 36415; 71045; 80053; 83735; 83880; 84484; 85007; 85027; 93005; 96374; 96375

== ENCOUNTER 2019-03-15 19:10 | Emergency (ER) | payer MEDICARE, MEDICAID, OTHER ==
[~2019-03-15] VITALS: Ht 170.2 cm; Wt 83.9 kg
--- NOTE | 2019-03-15 19:40 | ED Cardiac General ---
History of Present Illness General Chief Complaint: Chest Pain Stated Complaint: CHEST PAIN Nursing Triage Note: PT TO ROOM FS03 VIA EMS WITH C/O CHEST PAIN, TACHYCARDIA, PALPATATIONS STARTING THIS EVENING. Source: patient Exam Limitations: no limitations History of Present Illness Date Seen by Provider: Mar 15, 2019 Time Seen by Provider: 19:35 Initial Comments Patient complains of chest pain and palpitations starting about 2530 minutes ago. Onset was at rest. Her AICD did not shock her. She called 911. She was found be in V. tach at a rate of 150 bpm on EMS arrival. They tried adenosine in route without results. She was hospitalized a few weeks ago at [facility] for ventricular tachycardia. Took all her medicines today including aspirin and ELIQUIS NTG SL WARP CHANGER: No ASA po WARP CHANGER: No Allergies and Home Medications Allergies Coded Allergies: albuterol (Verified Allergy, Severe, 06/21/18) Heart Racing morphine (Verified Allergy, Mild, 06/21/18) Nausea Vomiting Uncoded Allergies: IV CONTRAST (Allergy, Unknown, 10/27/18) IVP DYE (Allergy, Unknown, 03/31/18) PLASTIC TAPE (Allergy, Unknown, 03/31/18) Home Medications Acyclovir 400 Mg Tablet, 400 MG PO BID, (Reported) Albuterol Sulfate 2.5 Mg/3 Ml Vial.neb, 2.5 MG INH Q4H, (Reported) Amoxicillin 875 Mg Tablet, 875 MG PO BID Prescribed by: XIN LOAIZA on 11/25/18 001 Apixaban 5 Mg Tab.ds.pk, 5 MG PO BID, (Reported) Aspirin 81 Mg Tab.chew, 81 MG PO DAILY, (Reported) Atorvastatin Calcium 40 Mg Tablet, 40 MG PO DAILY, (Reported) Azithromycin 250 Mg Tablet, 250 MG PO UD TAKE 2 TABLETS TODAY, THEN TAKE 1 TABLET DAILY FOR 4 MORE DAYS Prescribed by: KEYSHAWN LANDA on 06/21/18 1208 Azithromycin 500 Mg Tablet, 500 MG PO DAILY FOR INFECTION Prescribed by: CECILIO OTT on 07/09/1815 Benzonatate 100 Mg Capsule, 1-2 TAB PO TID Prescribed by: CECILIO OTT on 07/09/1815 Benzonatate 100 Mg Capsule, 100 MG PO Q6H PRN for COUGH Prescribed by: GANGA HALL on 01/15/191909 Cefdinir 300 Mg Capsule, 300 MG PO BID Prescribed by: CECILIO OTT on 07/09/1815 Cholecalciferol (Vitamin D3) 1,000 Unit Tablet, 1,000 UNIT PO DAILY, (Reported) Docusate Sodium 100 Mg Capsule, 100 MG PO BID PRN, (Reported) Escitalopram Oxalate 10 Mg Tablet, 10 MG PO DAILY, (Reported) Fluticasone/Vilanterol 1 Each Blst.w.dev, 1 EACH IH DAILY, (Reported) Furosemide 40 Mg Tablet, 40 MG PO DAILY Prescribed by: KEYSHAWN LANDA on 06/21/18 120 Guaifenesin 400 Mg Tablet, 400 MG PO BID PRN, (Reported) Guaifenesin/Dextromethorphan 1 Each Tbmp.12hr, 1 EACH PO BID Prescribed by: CECILIO OTT on 07/09/1815 Hydralazine HCl 50 Mg Tablet, 50 MG PO TID, (Reported) Ipratropium/Albuterol Sulfate 3 Ml Ampul.neb, 3 ML IH BID PRN for SHORTNESS OF BREATH, (Reported) Isosorbide Mononitrate 30 Mg Tab.er.24h, 30 MG PO DAILY, (Reported) Levothyroxine Sodium 25 Mcg Tablet, 25 MCG PO DAILY, (Reported) Lorazepam 1 Mg Tablet, 1 MG PO TID, (Reported) Metformin HCl 500 Mg Tab.er.24h, 500 MG PO DAILY, (Reported) Metoprolol Succinate 100 Mg Tab.er.24h, 100 MG PO DAILY, (Reported) Nitroglycerin 0.4 Mg Tab.subl, 0.4 MG SL PRN, (Reported) [place]-3/Dha/Epa/Fish Oil 1 Each Capsule, 1 EACH PO DAILY, (Reported) Ondansetron 4 Mg Tab.rapdis, 4 MG PO PRN, (Reported) Oxycodone HCl/Acetaminophen 1 Each Tablet, 1 EACH PO Q4H PRN for PAIN-MODERATE, (Reported) Prednisone 10 Mg Tab, 10 MG PO DAILY Prescribed by: GANGA HALL on 05/31/182031 Prednisone 5 Mg Tablet, 5 MG PO UD 12 PILLS DAY 1, THEN DECREASE BY 1 PILL A DAY UNTIL GONE Prescribed by: CECILIO OTT on 07/09/1815 Promethazine HCl/Codeine 5 Ml Syrup, 5 ML PO Q4H, (Reported) Ranitidine HCl 150 Mg Tablet, 150 MG PO BID, (Reported) Sacubitril/Valsartan 1 Each Tablet, 1 TAB PO BID, (Reported) Sennosides 8.6 Mg Tablet, 8.6 MG PO PRN, (Reported) Spironolactone 25 Mg Tablet, 25 MG PO DAILY, (Reported) Tiotropium [place] 1 Inh Aerp, 1 INH IH DAILY, (Reported) Torsemide 20 Mg Tablet, 20 MG PO DAILY, (Reported) Patient Home Medication List Home Medication List Reviewed: Yes Review of Systems Review of Systems Constitutional: malaise EENTM: No Symptoms Reported Respiratory: No Symptoms Reported Cardiovascular: Chest Pain, Irregular Heart Rate, Palpitations Gastrointestinal: No Symptoms Reported Genitourinary: No Symptoms Reported Musculoskeletal: no symptoms reported Skin: no symptoms reported Psychiatric/Neurological: No Symptoms Reported All Other Systems Reviewed Negative Unless Noted: Yes Past Gcnheig-Pgpthy-Enhxhi Hx Patient Social History Alcohol Use: Denies Use Recreational Drug Use: No Smoking Status: Current Everyday Smoker Type Used: Cigars 2nd Hand Smoke Exposure: Yes Recent Foreign Travel: No Contact w/Someone Who Travel: No Recent Infectious Disease Expo: No Recent Hopitalizations: Yes (DISCHARGED FROM [facility] ON WEDNESDAY.) Physical Abuse: No Sexual Abuse: No Mistreated: No Fear: No Immunizations Up To Date Date of Influenza Vaccine: Nov 08, 2017 Seasonal Allergies Seasonal Allergies: No Past Medical History Surgeries: Yes Adenoidectomy, Amputation, Angioplasty, Orthopedic Respiratory: Yes COPD Currently Using CPAP: No Currently Using BIPAP: No Cardiac: Yes Hypertension Neurological: No [employer] History: Menopausal Genitourinary: No Gastrointestinal: No Musculoskeletal: Yes Amputee, Back Injury Endocrine: Yes Hypothyroidsim, Diabetes, Non-Insulin dep HEENT: No Cancer: No Psychosocial: No Anxiety, Depression Integumentary: No Blood Disorders: No Adverse Reaction/Blood Tranf: No Physical Exam Vital Signs Vital Signs - First Documented 03/15/19 03/15/19 19:15 19:17 Temp 36.9 Pulse 149 Resp 24 B/P (MAP) 156/99 (118) Pulse Ox 99 O2 Delivery Nasal Cannula O2 Flow Rate 2.00 Capillary Refill : Less Than 3 Seconds Height, Weight, BMI Height: 5'7.00" Weight: 180lbs. 0oz. 81.777677xc; 28.00 BMI Method:Stated General Appearance: No Apparent Distress, WD/WN HEENT: Pharynx Normal Neck: Supple Respiratory: Lungs Clear Cardiovascular: Tachycardia Gastrointestinal: Soft Extremity: Normal Inspection, Normal Range of Motion, Non Tender, Other (R BKA) Neurologic/Psychiatric: Alert, Oriented x3, No Motor/Sensory Deficits Skin: Normal Color, Warm/Dry Procedures/Interventions Date of ETT Placement: Feb 09, 2019 Time of ETT Placement: 1914 Progress/Results/Core Measures Results/Orders Lab Results Laboratory Tests Test 03/15/19 19:27 Range/Units White Blood Count 11.2 H 4.3-11.0 10^3/uL Red Blood Count 4.34 L 4.35-5.85 10^6/uL Hemoglobin 11.6 11.5-16.0 G/DL Hematocrit 38 35-52 % Mean Corpuscular Volume 87 80-99 FL Mean Corpuscular Hemoglobin 27 25-34 PG Mean Corpuscular Hemoglobin Concent 31 L 32-36 G/DL Red Cell Distribution Width 14.8 H 10.0-14.5 % Platelet Count 337 130-400 10^3/uL Mean Platelet Volume 9.7 7.4-10.4 FL Neutrophils (%) (Auto) 36 L 42-75 % Lymphocytes (%) (Auto) 54 H 12-44 % Monocytes (%) (Auto) 8 0-12 % Eosinophils (%) (Auto) 0 0-10 % Basophils (%) (Auto) 0 0-10 % Neutrophils # (Auto) 4.1 1.8-7.8 X 10^3 Lymphocytes # (Auto) 6.1 H 1.0-4.0 X 10^3 Monocytes # (Auto) 0.9 0.0-1.0 X 10^3 Eosinophils # (Auto) 0.1 0.0-0.3 10^3/uL Basophils # (Auto) 0.1 0.0-0.1 10^3/uL Prothrombin Time 15.4 H 12.2-14.7 SEC INR Comment 1.2 0.8-1.4 Activated Partial Thromboplast Time 32 24-35 SEC Sodium Level 137 135-145 MMOL/L Potassium Level 4.6 3.6-5.0 MMOL/L Chloride Level 100 98-107 MMOL/L Carbon Dioxide Level 21 21-32 MMOL/L Anion Gap 16 H 5-14 MMOL/L Blood Urea Nitrogen 6 L 7-18 MG/DL Creatinine 1.09 0.60-1.30 MG/DL Estimat Glomerular Filtration Rate > 60 BUN/Creatinine Ratio 6 Glucose Level 201 H 70-105 MG/DL Calcium Level 9.6 8.5-10.1 MG/DL Corrected Calcium 9.7 8.5-10.1 MG/DL Magnesium Level 1.6 1.6-2.4 MG/DL Total Bilirubin 0.3 0.1-1.0 MG/DL Aspartate Amino Transf (AST/SGOT) 26 5-34 U/L Alanine Aminotransferase (ALT/SGPT) 17 0-55 U/L Alkaline Phosphatase 108 40-136 U/L Troponin I 48.93 *H <0.30 NG/ML Pro-B-Type Natriuretic Peptide 685.0 H <75.0 PG/ML Total Protein 6.8 6.4-8.2 GM/DL Albumin 3.9 3.2-4.5 GM/DL My Orders Orders - MOSES PARKER MD Cbc With Automated Diff (03/15/19 19:22) Magnesium (03/15/19 19:22) Chest 1 View Ap/Pa Only (03/15/19 19:22) Ekg Tracing (03/15/19 19:22) Comprehensive Metabolic Panel (03/15/19 19:22) Protime With Inr (03/15/19 19:22) Partial Thromboplastin Time (03/15/19 19:22) O2 (03/15/19 19:22) Monitor-Rhythm Ecg Trace Only (03/15/19 19:22) Ed Iv/Invasive Line Start (03/15/19 19:22) Troponin I Fs (03/15/19 19:22) Amiodarone For Bolus (Cordarone Bolus) (03/15/19 19:45) Amiodarone Injection (Cordarone Injectio (03/15/19 19:45) Probnp Fs (03/15/19 19:47) Ekg Tracing (03/15/19 20:01) Amiodarone For Bolus (Cordarone Bolus) (03/15/19 20:00) Fentanyl Injection (Sublimaze Injection (03/15/19 20:15) Aspirin Chewable Tablet (Baby Aspirin Ch (03/15/19 20:30) Lorazepam Injection (Ativan Injection) (03/15/19 20:45) Medications Given in ED Current Medications Medications Dose Ordered Sig/North Route Start Time Stop Time Status Last Admin Dose Admin Amiodarone HCl 150 mg/Dextrose 103 ml @ 600 mls/hr ONCE ONCE IV 03/15/19 19:45 03/15/19 19:55 DC 03/15/19 19:44 600 MLS/HR Aspirin 243 mg ONCE ONCE PO 03/15/19 20:30 03/15/19 20:31 DC 03/15/19 20:29 243 MG Fentanyl Citrate 50 mcg ONCE ONCE IVP 03/15/19 20:15 03/15/19 20:16 DC 03/15/19 20:18 50 MCG Lorazepam 1 mg ONCE ONCE IVP 03/15/19 20:45 03/15/19 20:46 DC 03/15/19 20:46 1 MG Vital Signs/I&O 03/15/19 03/15/19 03/15/19 03/15/19 19:15 19:17 19:23 21:35 Temp 36.9 Pulse 149 76 Resp 24 18 B/P (MAP) 156/99 (118) 103/63 Pulse Ox 99 100 99 O2 Delivery Nasal Cannula Nasal Cannula Nasal Cannula Room Air O2 Flow Rate 2.00 2.00 2.0 03/16/19 00:00 Intake Total 100 ml Balance 100 ml Blood Pressure Mean: 118 Progress Progress Note : Time: 20:24 Progress Note Patient feels much better after amiodarone. Her heart rate is currently in the 90s with a narrow complex QRS although there is still significant ventricular ectopy. Chest pain down to 1 or 2 out of 10. She was given fentanyl. She is also given 243 mg aspirin by mouth. She took her amiodarone on baby aspirin this morning. At bedtime for higher level of care (cardiology). Her senior director is at [facility]. I spoke with Dr. Biggs at [facility] and arranged for transfer to [facility] Initial ECG Impression Date: Mar 15, 2019 Initial ECG Impression Time: 19:17 Initial ECG Rate: 148 Initial ECG Rhythm: V.Tach EKG : EKG Time: 19:59 Rate: 103 Rhythm: Normal Sinus Comment Sinus rhythm with multifocal PVCs AND 3 beat run of V. tach. No ST elevation Diagnostic Imaging Diagonstic Imaging: Xray Plain Films/CT/US/NM/MRI: chest Comments Nothing acute Departure Impression Primary Impression: Ventricular tachycardia Additional Impressions: Acute myocardial infarction Chest pain Disposition: XFER SHT-TRM HOSP Condition: Critical Transfer Transfer Reason: Exceeds level of care Time Spoke to Accepting Phy: 20:[address] Biggs accepted transfer Transfer Time: 20:27 Transfer Facility: [facility] Method of Transfer: EMS Departure-Patient Inst. Referrals: NO,LOCAL PHYSICIAN (PCP/Family) Primary Care Physician MOSES PARKER MD Mar 15, 2019 19:39
[2019-03-15 19:41] LABS: BASOPHILS % (AUTO) 0 % (0-10); EOSINOPHILS % (AUTO) 0 % (0-10); HEMATOCRIT 38 % (35-52); HEMOGLOBIN 11.6 G/DL (11.5-16.0); LYMPHOCYTES % (AUTO) 54 % (12-44); MEAN CORPUSCULAR HEMOGLOBIN 27 PG (25-34); MEAN CORPUSCULAR HGB CONC 31 G/DL (32-36); MEAN CORPUSCULAR VOLUME 87 FL (80-99); MEAN PLATELET VOLUME 9.7 FL (7.4-10.4); MONOCYTES % (AUTO) 8 % (0-12); NEUTROPHILS # (AUTO) 4.1 X 10^3 (1.8-7.8); NEUTROPHILS % (AUTO) 36 % (42-75); PLATELET COUNT 337 10^3/uL (130-400); RED CELL DISTRIBUTION WIDTH 14.8 % (10.0-14.5); WHITE BLOOD COUNT 11.2 10^3/uL (4.3-11.0)
[2019-03-15 19:42] LABS: BASOPHILS # (AUTO) 0.1 10^3/uL (0.0-0.1); EOSINOPHILS # (AUTO) 0.1 10^3/uL (0.0-0.3); LYMPHOCYTES # (AUTO) 6.1 X 10^3 (1.0-4.0); MONOCYTES # (AUTO) 0.9 X 10^3 (0.0-1.0)
[2019-03-15] MEDS ORDERED: AMIODARONE FOR BOLUS 150 MG in D5W 100 ML IVPB 100 ML IV ONE (19:45)
[2019-03-15] MEDS ORDERED: AMIODARONE INJECTION 450 MG in D5W IV SOLUTION (EXCEL) 250 ML IV SCH (19:45)
--- NOTE | 2019-03-15 19:48 | Diagnostic Imaging Report ---
EXAM: CHEST 1 VIEW AP/PA ONLY INDICATION: Chest pain. Palpitations. COMPARISON: 02/13/2019. FINDINGS: Normal heart size and central pulmonary vascularity. Calcified aorta. AICD. No new focal pulmonary opacity, pleural effusion or pneumothorax. No acute osseous findings. IMPRESSION: No acute cardiopulmonary findings. Dictated by: Dictated on workstation # [id number]
[2019-03-15 19:49] LABS: INR 1.2 (0.8-1.4); PROTHROMBIN TIME PATIENT 15.4 SEC (12.2-14.7)
[2019-03-15] MEDS ORDERED: AMIODARONE (OMNICELL DRIP KIT) 150 MG/3 ML IV ONE (20:00)
[2019-03-15 20:08] LABS: ALANINE AMINOTRANSFERASE 17 U/L (0-55); ALBUMIN 3.9 GM/DL (3.2-4.5); ALKALINE PHOSPHATASE 108 U/L (40-136); BILIRUBIN,TOTAL 0.3 MG/DL (0.1-1.0); BUN/CREATININE RATIO 6; CALCIUM 9.6 MG/DL (8.5-10.1); CARBON DIOXIDE 21 MMOL/L (21-32); CHLORIDE 100 MMOL/L (98-107); CREATININE SERUM 1.09 MG/DL (0.60-1.30); GFR ESTIMATED > 60; GLUCOSE 201 MG/DL (70-105); MAGNESIUM 1.6 MG/DL (1.6-2.4); POTASSIUM 4.6 MMOL/L (3.6-5.0); SODIUM 137 MMOL/L (135-145); TOTAL PROTEIN 6.8 GM/DL (6.4-8.2)
[2019-03-15] MEDS ORDERED: fentaNYL INJECTION 100 MCG/2 ML AMP IVP ONE (20:15)
[2019-03-15] MEDS ORDERED: ASPIRIN 81 MG CHEW (CHILDREN'S ASA) PO ONE (20:30)
[2019-03-15] MEDS ORDERED: LORazepam INJ 2 MG/ML (ATIVAN) VIAL IVP ONE (20:45)
[2019-03-15 21:35] VITALS: BP 103/63
== END 2019-03-15 19:36 | disposition short-term general hospital (02) ==
LOC: EDUNIT# 19:10 → ER FS 19:14
DX: I21.9 Acute myocardial infarction, unspecified (principal); I47.2 Ventricular tachycardia; J44.9 Chronic obstructive pulmonary disease, unspecified; I10 Essential (primary) hypertension; E11.9 Type 2 diabetes mellitus without complications; E03.9 Hypothyroidism, unspecified; F41.9 Anxiety disorder, unspecified; F32.9 Major depressive disorder, single episode, unspecified; F17.290 Nicotine dependence, other tobacco product, uncomplicated; Z79.82 Long term (current) use of aspirin; Z79.01 Long term (current) use of anticoagulants; Z88.8 Allergy status to other drugs, medicaments and biological substances; Z88.5 Allergy status to narcotic agent; Z91.041 Radiographic dye allergy status; Z79.51 Long term (current) use of inhaled steroids; Z79.84 Long term (current) use of oral hypoglycemic drugs
CPT/HCPCS: 36415; 71045; 80053; 83735; 83880; 84484; 85025; 85610; 85730; 93005; 93041

== ENCOUNTER 2019-04-19 10:38 | Emergency (ER) | payer MEDICARE, MEDICAID ==
[~2019-04-19] VITALS: Ht 170 cm; Wt 83.0 kg
[~2019-04-19 10:38] MED LIST changes: -ALPR0.5T7; +ALPR0.5T7 PO; -APIX5TAB; +APIX5TAB PO; -GUAI400T71 PO; +GUAI400T86 PO; -SACU1TAB2; +SACU1TAB2 PO
[2019-04-19 10:49] VITALS: BP 121/75
--- NOTE | 2019-04-19 10:50 | ED Cough/URI ---
General Stated Complaint: SOB History of Present Illness Date Seen by Provider: Apr 19, 2019 Time Seen by Provider: 10:45 Initial Comments This patient is a 63-year-old female with a long history of COPD presents to the emergency department complaining of a problem with her oxygen. Patient wears 2 L by nasal cannula 24 hours a day and apparently has 50 foot of hose. Patient apparently got aching in her hose and states she couldn't breathe. EMS arrived and got her oxygen straightened out. Also give the patient breathing treatment patient is satting 98% and has no complaints at this time. We did discuss at length with patient about a medical screening exam patient is only agreeable to a chest x-ray. Patient is refusing any lab evaluation or any further studies. Patient states she has a PCP appointment tomorrow [place] that she is doing just fine she just was makes her chest x-ray looks okay. Again patient was offered full medical screening exam the patient declined she does require requesting chest x-ray. We will perform a chest x-ray per her request. Timing/Duration: this morning Severity/Quality: mild Modifying Factors: Improves With Activity Associated Symptoms: shortness of breath Allergies and Home Medications Allergies Coded Allergies: albuterol (Verified Allergy, Severe, 06/21/18) Heart Racing morphine (Verified Allergy, Mild, 06/21/18) Nausea Vomiting Uncoded Allergies: IV CONTRAST (Allergy, Unknown, 10/27/18) IVP DYE (Allergy, Unknown, 03/31/18) PLASTIC TAPE (Allergy, Unknown, 03/31/18) Home Medications Acyclovir 400 Mg Tablet, 400 MG PO BID, (Reported) Albuterol Sulfate 2.5 Mg/3 Ml Vial.neb, 2.5 MG INH Q4H, (Reported) Amoxicillin 875 Mg Tablet, 875 MG PO BID Prescribed by: XIN LOAIZA on 11/25/18 0019 Apixaban 5 Mg Tab.ds.pk, 5 MG PO BID, (Reported) Aspirin 81 Mg Tab.chew, 81 MG PO DAILY, (Reported) Atorvastatin Calcium 40 Mg Tablet, 40 MG PO DAILY, (Reported) Azithromycin 250 Mg Tablet, 250 MG PO UD TAKE 2 TABLETS TODAY, THEN TAKE 1 TABLET DAILY FOR 4 MORE DAYS Prescribed by: KEYSHAWN LANDA on 06/21/18 1208 Azithromycin 500 Mg Tablet, 500 MG PO DAILY FOR INFECTION Prescribed by: CECILIO OTT on 07/09/1815 Benzonatate 100 Mg Capsule, 1-2 TAB PO TID Prescribed by: CECILIO OTT on 07/09/1815 Benzonatate 100 Mg Capsule, 100 MG PO Q6H PRN for COUGH Prescribed by: GANGA HALL on 01/15/191909 Cefdinir 300 Mg Capsule, 300 MG PO BID Prescribed by: CECILIO OTT on 07/09/1815 Cholecalciferol (Vitamin D3) 1,000 Unit Tablet, 1,000 UNIT PO DAILY, (Reported) Docusate Sodium 100 Mg Capsule, 100 MG PO BID PRN, (Reported) Escitalopram Oxalate 10 Mg Tablet, 10 MG PO DAILY, (Reported) Fluticasone/Vilanterol 1 Each Blst.w.dev, 1 EACH IH DAILY, (Reported) Furosemide 40 Mg Tablet, 40 MG PO DAILY Prescribed by: KEYSHAWN LANDA on 06/21/18 1208 Guaifenesin 400 Mg Tablet, 400 MG PO BID PRN, (Reported) Guaifenesin/Dextromethorphan 1 Each Tbmp.12hr, 1 EACH PO BID Prescribed by: CECILIO OTT on 07/09/1815 Hydralazine HCl 50 Mg Tablet, 50 MG PO TID, (Reported) Ipratropium/Albuterol Sulfate 3 Ml Ampul.neb, 3 ML IH BID PRN for SHORTNESS OF BREATH, (Reported) Isosorbide Mononitrate 30 Mg Tab.er.24h, 30 MG PO DAILY, (Reported) Levothyroxine Sodium 25 Mcg Tablet, 25 MCG PO DAILY, (Reported) Lorazepam 1 Mg Tablet, 1 MG PO TID, (Reported) Metformin HCl 500 Mg Tab.er.24h, 500 MG PO DAILY, (Reported) Metoprolol Succinate 100 Mg Tab.er.24h, 100 MG PO DAILY, (Reported) Nitroglycerin 0.4 Mg Tab.subl, 0.4 MG SL PRN, (Reported) [place]-3/Dha/Epa/Fish Oil 1 Each Capsule, 1 EACH PO DAILY, (Reported) Ondansetron 4 Mg Tab.rapdis, 4 MG PO PRN, (Reported) Oxycodone HCl/Acetaminophen 1 Each Tablet, 1 EACH PO Q4H PRN for PAIN-MODERATE, (Reported) Prednisone 10 Mg Tab, 10 MG PO DAILY Prescribed by: GANGA HALL on 05/31/182031 Prednisone 5 Mg Tablet, 5 MG PO UD 12 PILLS DAY 1, THEN DECREASE BY 1 PILL A DAY UNTIL GONE Prescribed by: CECILIO OTT on 07/09/18 0016 Promethazine HCl/Codeine 5 Ml Syrup, 5 ML PO Q4H, (Reported) Ranitidine HCl 150 Mg Tablet, 150 MG PO BID, (Reported) Sacubitril/Valsartan 1 Each Tablet, 1 TAB PO BID, (Reported) Sennosides 8.6 Mg Tablet, 8.6 MG PO PRN, (Reported) Spironolactone 25 Mg Tablet, 25 MG PO DAILY, (Reported) Tiotropium [place] 1 Inh Aerp, 1 INH IH DAILY, (Reported) Torsemide 20 Mg Tablet, 20 MG PO DAILY, (Reported) Patient Home Medication List Home Medication List Reviewed: Yes Review of Systems Review of Systems Constitutional: no symptoms reported, see HPI EENTM: no symptoms reported Respiratory: No no symptoms reported, No see HPI, No cough; dyspnea on exertion; No hemoptysis, No orthopnea, No phlegm, No short of breath, No stridor, No wheezing, No other Cardiovascular: no symptoms reported; No see HPI, No chest pain, No edema, No Hx of Intervention, No palpitations, No syncope, No vascular heart diseas, No other Gastrointestinal: No RUQ, No LUQ, No RLQ, No LLQ, No no symptoms reported, No see HPI, No abdominal pain, No constipation, No diarrhea, No dysphagia, No hematemesis, No heartburn, No jaundice, No loss of appetite, No melena, No nausea, No vomiting, No other Past Lricakq-Lxgsoa-Ngepdo Hx Patient Social History Type Used: Cigars 2nd Hand Smoke Exposure: Yes Recent Foreign Travel: Yes Recent Hopitalizations: Yes (DISCHARGED FROM [facility] ON WEDNESDAY.) Immunizations Up To Date Date of Influenza Vaccine: Nov 08, 2017 Seasonal Allergies Seasonal Allergies: No Past Medical History Surgeries: Yes Adenoidectomy, Amputation, Angioplasty, Orthopedic Respiratory: Yes COPD Currently Using CPAP: No Currently Using BIPAP: No Cardiac: Yes Hypertension Neurological: No BRACER History: Menopausal Genitourinary: No Gastrointestinal: No Musculoskeletal: Yes Amputee, Back Injury Endocrine: Yes Hypothyroidsim, Diabetes, Non-Insulin dep HEENT: No Cancer: No Psychosocial: No Anxiety, Depression Integumentary: No Blood Disorders: No Adverse Reaction/Blood Tranf: No Physical Exam Vital Signs - First Documented 04/19/19 10:49 Temp 36.0 Pulse 73 Resp 18 B/P (MAP) 121/75 (90) O2 Delivery Room Air Capillary Refill : Height: 5'7.00" Weight: 180lbs. 0oz. [id number]; 28.00 BMI Method:Stated General Appearance: WD/WN, no apparent distress HEENT: PERRL/EOMI, normal ENT inspection, TMs normal, pharynx normal Neck: non-tender, full range of motion, supple, normal inspection, carotid bruit Respiratory: chest non-tender, lungs clear, normal breath sounds, no respiratory distress, no accessory muscle use, respiratory distress Cardiovascular: normal peripheral pulses, regular rate, rhythm, no edema, no g allop, no JVD, no murmur Gastrointestinal: normal bowel sounds, non tender, soft, no organomegaly, no pulsatile mass Procedures/Interventions Date of ETT Placement: Feb 09, 2019 Time of ETT Placement: 1914 Progress/Results/Core Measures Suspected Sepsis SIRS Temperature: Pulse: Respiratory Rate: Blood Pressure / Mean: Results/Orders My Orders Orders - JOY CH MD Chest 1 View Ap/Pa Only (04/19/19 10:44) Vital Signs/I&O 04/19/19 10:49 Temp 36.0 Pulse 73 Resp 18 B/P (MAP) 121/75 (90) O2 Delivery Room Air Capillary Refill : Diagnostic Imaging Diagonstic Imaging: Xray Plain Films/CT/US/NM/MRI: chest Comments Normal chest x-ray pacemaker in place Reviewed: Reviewed by Me Departure Impression Primary Impression: Dyspnea Disposition: HOME, SELF-CARE Condition: Improved Departure-Patient Inst. Decision time for Depature: 11:06 Referrals: NO,LOCAL PHYSICIAN (PCP/Family) Primary Care Physician Patient Instructions: Shortness of Breath (Dyspnea) Add. Discharge Instructions: Could benefit from having a shorter nasal cannula tubing. Continue all home medications. Follow-up with her primary care physician as scheduled tomorrow. Return to the emergency department as needed. JOY CH MD Apr 19, 2019 10:49
--- NOTE | 2019-04-19 10:58 | Diagnostic Imaging Report ---
INDICATION: Chest pain and shortness of breath. TIME OF EXAM: 10:51 a.m. COMPARISON: Correlation is made with prior chest from 03/15/2019. FINDINGS: The heart size is stable. Cardiac defibrillator remains in place. The lungs are clear. There is no infiltrate or failure. No effusion or pneumothorax is detected. IMPRESSION: No acute cardiopulmonary process is detected. Dictated by: Dictated on workstation # [id number]
--- OUTSIDE RECORDS SUMMARY | 2019-04-21 06:53 | XMS REPORT | Continuity of Care Document ---
Author Organization Unknown Address Unknown Phone Unavailable Allergies Active Description Code Type Severity Reaction Onset Reported/Identified Relationship to Patient Clinical Status Yes ADHESIVE TAPE-SILICONES 18541 NAVA G Low Rash 08/04/2011 Yes ALBUTEROL 01076 DRUG INGREDI N/A Other 08/04/2011 Yes ALBUTEROL 91821 DRUG INGREDI Low Other 08/04/2011 Yes OPIOIDS - MORPHINE ANALOGUES 45319 Drug Class N/A NTV 08/04/2011 Yes OPIOIDS - MORPHINE ANALOGUES 35376 Drug Class Low NTV 08/04/2011 Yes IODINATED CONTRAST- ORAL AND IV DYE 4 4171 Drug Class High Other 11/16/2013 Yes IODINATED CONTRAST- ORAL AND IV DYE 4 4171 Drug Class N/A Other 11/16/2013 Yes IVP DYE IVP DYE Unknown N/A 03/31/2018 Yes No Known Drug Allergies [id number] Drug Allergy Unknown N/A 03/31/2018 Yes PLASTIC TAPE PLASTIC TAPE Unknown N/A 03/31/2018 Yes albuterol [id number] Drug Allergy Severe N/A 06/21/2018 Yes morphine [id number] Drug Allergy Mild N/A 06/21/2018 Yes No Known Drug Allergies [id number] Drug Allergy Unknown N/A 07/08/2018 Yes No Allergy Information Available [id number] 89476 Drug Allergy Unknown N/A 019 Yes FLUTICASONE FUROATE-VILANTEROL 70370 DRUG High Not specifie 07/11/2018 Yes FLUTICASONE FUROATE-VILANTEROL 93421 DRUG N/A Not specifie 07/11/2018 Yes IV CONTRAST IV CONTRAST Unknown N/A 10/26/2018 Yes IV CONTRAST IV CONTRAST Unknown N/A 10/26/2018 Medications There is no data. 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 01/19/2018 Z79.01 Rosa g term (current) use of anticoagulants 01/19/2018 Z79.01 Rosa g term (current) use of anticoagulants 01/19/2018 SONIA RUIZ Z79.01 long term acute care registered nurse (current) use of anticoagulants 01/19/2018 Z95.810 Pr esence of automatic (implantable) cardiac defibrillator 03/04/2018 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 03/08/2018 I10 Essent ial (primary) hypertension 03/08/2018 DOLORES DILLARD G89.29 Other chronic pain 03/08/2018 DOLORES DILLARD K27.9 Peptic ulcer, site unspecified, unspecified as acute or chronic, without hemorrhage or perforation 03/08/2018 DOLORES DILLARD M54.5 Low back pain 03/17/2018 I48.0 Paro xysmal atrial fibrillation 03/17/2018 I25.2 Old myocardial infarction 03/17/2018 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 9 CARDIOMYOPATHY, UNSPECIFIED 04/01/2018 MAGED RODGERS DO Ot I50. 9 HEART FAILURE, UNSPECIFIED 04/01/2018 MAGED RODGERS DO Ot J44. 9 CHRONIC OBSTRUCTIVE PULMONARY DISEASE, U 04/01/2018 MAGED RODGERS DO Ot R06. 02 SHORTNESS OF BREATH 04/01/2018 MAGED RODGERS DO Ot R07. 9 CHEST PAIN, UNSPECIFIED 04/01/2018 MAGED RODGERS DO Ot R79. 89 OTHER SPECIFIED ABNORMAL FINDINGS OF BLO 04/01/2018 MAGED RODGERS DO Ot Z88. 5 ALLERGY STATUS TO NARCOTIC AGENT STATUS 04/01/2018 MAGED RODGERS DO B Ot Z88. 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 9 CARDIOMYOPATHY, UNSPECIFIED 04/06/2018 MAGED RODGERS DO Ot I50. 9 HEART FAILURE, UNSPECIFIED 04/06/2018 MAGED RODGERS DO Ot J44. 9 CHRONIC OBSTRUCTIVE PULMONARY DISEASE, U 04/06/2018 MAGED RODGERS DO Ot R06. 02 SHORTNESS OF BREATH 04/06/2018 MAGED RODGERS DO Ot R07. 9 CHEST PAIN, UNSPECIFIED 04/06/2018 MAGED RODGERS DO Ot R79. 89 OTHER SPECIFIED ABNORMAL FINDINGS OF BLO 04/06/2018 MAGED RODGERS DO Ot Z88. 5 ALLERGY STATUS TO NARCOTIC AGENT STATUS 04/06/2018 MAGED RODGERS DO Ot Z88. 8 ALLERGY STATUS TO OTH DRUG/MEDS/BIOL SUB 04/06/2018 MAGED RODGERS DO Ot Z91.041 RADIOGRAPHIC DYE ALLERGY STATUS 04/06/2018 MAGED RODGERS DO B Ot Z91.048 OTHER NONMEDICINAL SUBSTANCE ALLERGY STA 04/06/2018 MAGED RODGERS DO B Ot Z95.810 PRESENCE OF AUTOMATIC (IMPLANTABLE) CARD 04/11/2018 ASIM AKBAR MD Ot E11 .9 TYPE 2 DIABETES MELLITUS WITHOUT COMPLIC 04/11/2018 ASIM AKBAR MD Ot G89.29 OTHER CHRONIC PAIN 04/11/2018 ASIM AKBAR MD Ot I25 .2 OLD MYOCARDIAL INFARCTION 04/11/2018 ASIM AKBAR MD Ot J44 .9 CHRONIC OBSTRUCTIVE PULMONARY DISEASE, U 04/11/2018 ASIM AKBAR MD Ot M79.604 PAIN IN RIGHT LEG 04/11/2018 ASIM AKBAR MD Ot Z88 .5 ALLERGY STATUS TO NARCOTIC AGENT STATUS 04/11/2018 ASIM AKBAR MD Ot Z88 .8 ALLERGY STATUS TO OTH DRUG/MEDS/BIOL SUB 04/11/2018 ASIM AKBAR MD Ot Z89.511 ACQUIRED ABSENCE OF RIGHT LEG BELOW KNEE 04/11/2018 ASIM AKBAR MD Ot Z91.041 RADIOGRAPHIC DYE ALLERGY STATUS 04/11/2018 ASIM AKBAR MD Ot Z91.048 OTHER NONMEDICINAL SUBSTANCE ALLERGY STA 04/11/2018 ASIM AKBAR MD Ot Z95.810 PRESENCE OF AUTOMATIC (IMPLANTABLE) CARD 04/13/2018 ASIM AKBAR MD Ot E11 .9 TYPE 2 DIABETES MELLITUS WITHOUT COMPLIC 04/13/2018 ASIM AKBAR MD Ot G89.29 OTHER CHRONIC PAIN 04/13/2018 ASIM AKBAR MD Ot I25 .2 OLD MYOCARDIAL INFARCTION 04/13/2018 ASIM AKBAR MD Ot J44 .9 CHRONIC OBSTRUCTIVE PULMONARY DISEASE, U 04/13/2018 ASIM AKBAR MD Ot M79.604 PAIN IN RIGHT LEG 04/13/2018 ASIM AKBAR MD Ot Z88 .5 ALLERGY STATUS TO NARCOTIC AGENT STATUS 04/13/2018 ASIM AKBAR MD Ot Z88 .8 ALLERGY STATUS TO OTH DRUG/MEDS/BIOL SUB 04/13/2018 ASIM AKBAR MD Ot Z89.511 ACQUIRED ABSENCE OF RIGHT LEG BELOW KNEE 04/13/2018 ASIM AKBAR MD Ot Z91.041 RADIOGRAPHIC DYE ALLERGY STATUS 04/13/2018 ASIM AKBAR MD Ot Z91.048 OTHER NONMEDICINAL SUBSTANCE ALLERGY STA 04/13/2018 ASIM AKBAR MD Ot Z95.810 PRESENCE OF AUTOMATIC (IMPLANTABLE) CARD 04/14/2018 LANDA DO KEYSHAWN Ot E11.9 TYPE 2 DIABETES MELLITUS WITHOUT COMPLIC 04/14/2018 SYEDA ASKEW KEYSHAWN Ot G89.29 OTHER CHRONIC PAIN 04/14/2018 LANDA DO KEYSHAWN Ot I25.2 OLD MYOCARDIAL INFARCTION 04/14/2018 LANDA DO KEYSHAWN Ot J44.9 CHRONIC OBSTRUCTIVE PULMONARY DISEASE, [...] Z91.048 OTHER NONMEDICINAL SUBSTANCE ALLERGY STA 04/14/2018 LANDA DO, KEYSHAWN Ot Z95.810 PRESENCE OF AUTOMATIC (IMPLANTABLE) CARD 04/14/2018 BUXTON DO, KEYSHAWN Ot Z98.890 OTHER SPECIFIED POSTPROCEDURAL STATES 04/18/2018 LANDA DO, KEYSHAWN Ot E11.9 TYPE 2 DIABETES MELLITUS WITHOUT COMPLIC 04/18/2018 BUXTON DO, KEYSHAWN Ot G89.29 OTHER CHRONIC PAIN 04/18/2018 BUXTON DO, KEYSHAWN Ot I25.2 OLD MYOCARDIAL INFARCTION 04/18/2018 BUXTON DO, KEYSHAWN Ot J44.9 CHRONIC OBSTRUCTIVE PULMONARY DISEASE, U 04/18/2018 BUXTON DO, KEYSHAWN Ot M79.604 PAIN IN RIGHT LEG 04/18/2018 LANAD DO, KEYSHAWN Ot Z88.5 ALLERGY STATUS TO NARCOTIC AGENT STATUS 04/18/2018 BUXTON DO, KEYSHAWN Ot Z88.8 ALLERGY STATUS TO OTH DRUG/MEDS/BIOL SUB 04/18/2018 BUXTON DO, KEYSHAWN Ot Z91.041 RADIOGRAPHIC DYE ALLERGY STATUS 04/18/2018 BUXTON DO, KEYSHAWN Ot Z91.048 OTHER NONMEDICINAL SUBSTANCE ALLERGY STA 04/18/2018 BUXTON DO, KEYSHAWN Ot Z95.810 PRESENCE OF AUTOMATIC (IMPLANTABLE) CARD 04/18/2018 BUXTON DO, KEYSHAWN Ot Z98.890 OTHER SPECIFIED POSTPROCEDURAL STATES 04/22/2018 ANJEL JUAREZ DOED T Ot E11. 9 TYPE 2 DIABETES MELLITUS WITHOUT COMPLIC 04/22/2018 ANJEL JUAREZ DOED T Ot I25. 2 OLD MYOCARDIAL INFARCTION 04/22/2018 ANJEL JUAREZ DOED T Ot I48. 91 UNSPECIFIED ATRIAL FIBRILLATION 04/22/2018 ANN ASKEW FAIZA T Ot I49. 3 VENTRICULAR PREMATURE DEPOLARIZATION 04/22/2018 ANJEL JUAREZ DOED T Ot I50. 9 HEART FAILURE, UNSPECIFIED 04/22/2018 FAIZA JUAREZ DO T Ot J44. 9 CHRONIC OBSTRUCTIVE PULMONARY DISEASE, U 04/22/2018 ANN DO, FAIZA T Ot N28. 9 DISORDER OF KIDNEY AND URETER, UNSPECIFI 04/22/2018 ANN FAIZA T Ot R79. 89 OTHER SPECIFIED ABNORMAL FINDINGS OF BLO 04/22/2018 ANN ASKEWANJELED T Ot Z79. 01 LONG-TERM (CURRENT) USE OF ANTICOAGULANT 04/22/2018 ANN ASKEW FAIZA T Ot Z88. 5 ALLERGY STATUS TO NARCOTIC AGENT STATUS 04/22/2018 ANN FAIZA T Ot Z88. 8 ALLERGY STATUS TO OTH DRUG/MEDS/BIOL SUB 04/22/2018 ANN DO FAIZA T Ot Z91.041 RADIOGRAPHIC DYE ALLERGY STATUS 04/22/2018 ANN ASKEW FAIZA T Ot Z91.048 OTHER NONMEDICINAL SUBSTANCE ALLERGY STA 04/22/2018 ANN ASKEW FAIZA T Ot Z95.810 PRESENCE OF AUTOMATIC (IMPLANTABLE) CARD 04/22/2018 ANN ASKEW FAIZA T Ot Z99. 81 DEPENDENCE ON SUPPLEMENTAL OXYGEN 05/30/2018 ANJEL JUAREZ DOED T Ot E11. 9 TYPE 2 DIABETES MELLITUS WITHOUT COMPLIC 05/30/2018 ANN ASKEW FAIZA T Ot F17.210 NICOTINE DEPENDENCE, CIGARETTES, UNCOMPL 05/30/2018 ANN ASKEW FAIZA T Ot I25. 2 OLD MYOCARDIAL INFARCTION 05/30/2018 ANN ASKEW FAIZA T Ot I48. 91 UNSPECIFIED ATRIAL FIBRILLATION 05/30/2018 ANN ASKEW FAIZA T Ot J44. 9 CHRONIC OBSTRUCTIVE PULMONARY DISEASE, U 05/30/2018 ANN ASKEW FAIZA T Ot R06. 00 DYSPNEA, UNSPECIFIED 05/30/2018 ANN ASKEW FAIZA T Ot R06. 02 SHORTNESS OF BREATH 05/30/2018 ANN ASKEW FAIZA T Ot R79. 89 OTHER SPECIFIED ABNORMAL FINDINGS OF BLO 05/30/2018 ANN ASKEW FAIZA T Ot Z79. 01 ESTATE PLANNING DIRECTOR (CURRENT) USE OF ANTICOAGULANT 05/30/2018 ANN ASKEW FAIZA T Ot Z88. 5 ALLERGY STATUS TO NARCOTIC AGENT STATUS 05/30/2018 ANN ASKEW FAIZA T Ot Z88. 8 ALLERGY STATUS TO OTH DRUG/MEDS/BIOL SUB 05/30/2018 ANN ASKEW FAIZA T Ot Z91.041 RADIOGRAPHIC DYE ALLERGY STATUS 05/30/2018 ANN ASKEW FAIZA T Ot Z91.048 OTHER NONMEDICINAL SUBSTANCE ALLERGY STA 05/30/2018 ANN ASKEW FAIZA T Ot Z95.810 PRESENCE OF AUTOMATIC (IMPLANTABLE) CARD 05/30/2018 FAIZA JUAREZ DO T Ot Z99. 81 DEPENDENCE ON SUPPLEMENTAL OXYGEN 05/31/2018 GANGA HALL MD Ot E11. 9 TYPE 2 DIABETES MELLITUS WITHOUT COMPLIC 05/31/2018 GANGA HALL MD Ot F17.210 NICOTINE DEPENDENCE, CIGARETTES, UNCOMPL 05/31/2018 GANGA HALL MD Ot I25. 2 OLD MYOCARDIAL INFARCTION 05/31/2018 GANGA HALL MD Ot I48. 91 UNSPECIFIED ATRIAL FIBRILLATION 05/31/2018 GANGA HALL MD Ot J44. 9 CHRONIC OBSTRUCTIVE PULMONARY DISEASE, U 05/31/2018 GANGA HALL MD Ot R06. 02 SHORTNESS OF BREATH 05/31/2018 GANGA HALL MD Ot Z79. 01 ESTATE PLANNING DIRECTOR (CURRENT) USE OF ANTICOAGULANT 05/31/2018 GANGA HALL MD Ot Z79. 52 ESTATE PLANNING DIRECTOR (CURRENT) USE OF SYSTEMIC STER 05/31/2018 GANGA HALL MD Ot Z88. 5 ALLERGY STATUS TO NARCOTIC AGENT STATUS 05/31/2018 GANGA HALL MD Ot Z88. 8 ALLERGY STATUS TO OTH DRUG/MEDS/BIOL SUB 05/31/2018 GANGA HALL MD Ot Z91.041 RADIOGRAPHIC DYE ALLERGY STATUS 05/31/2018 GANGA HALL MD Ot Z91.048 OTHER NONMEDICINAL SUBSTANCE ALLERGY STA 05/31/2018 GANGA HALL MD Ot Z95. 0 PRESENCE OF CARDIAC PACEMAKER 05/31/2018 GANGA HALL MD Ot Z95.810 PRESENCE OF AUTOMATIC (IMPLANTABLE) CARD 05/31/2018 GANGA HALL MD Ot Z99. 81 DEPENDENCE ON SUPPLEMENTAL OXYGEN 06/02/2018 FAIZA JUAREZ DO T Ot E11. 9 TYPE 2 DIABETES MELLITUS WITHOUT COMPLIC 06/02/2018 FAIZA JUAREZ DO T Ot F17.210 NICOTINE DEPENDENCE, CIGARETTES, UNCOMPL 06/02/2018 FAIZA JUAREZ DO T Ot I25. 2 OLD MYOCARDIAL INFARCTION 06/02/2018 FAIZA JUAREZ DO T Ot I48. 91 UNSPECIFIED ATRIAL FIBRILLATION 06/02/2018 FAIZA JUAREZ DO T Ot J44. 9 CHRONIC OBSTRUCTIVE PULMONARY DISEASE, U 06/02/2018 FAIZA JUAREZ DO T Ot R06. 00 DYSPNEA, UNSPECIFIED 06/02/2018 ANJEL JUAREZ DOED T Ot R06. 02 SHORTNESS OF BREATH 06/02/2018 FAIZA JUAREZ DO T Ot R79. 89 OTHER SPECIFIED ABNORMAL FINDINGS OF BLO 06/02/2018 FAIZA JUAREZ DO T Ot Z79. 01 LONG-TERM (CURRENT) USE OF ANTICOAGULANT 06/02/2018 ANJEL JUAREZ DOED T Ot Z88. 5 ALLERGY STATUS TO NARCOTIC AGENT STATUS 06/02/2018 FAIZA JUAREZ DO T Ot Z88. 8 ALLERGY STATUS TO OTH DRUG/MEDS/BIOL SUB 06/02/2018 ANJEL JUAREZ DOED T Ot Z91.041 RADIOGRAPHIC DYE ALLERGY STATUS 06/02/2018 ANJEL JUAREZ DOED T Ot Z91.048 OTHER NONMEDICINAL SUBSTANCE ALLERGY STA 06/02/2018 FAIZA JUAREZ DO T Ot Z95.810 PRESENCE OF AUTOMATIC (IMPLANTABLE) CARD 06/02/2018 FAIZA JUAREZ DO T Ot Z99. 81 DEPENDENCE ON SUPPLEMENTAL OXYGEN 06/02/2018 GANGA HALL MD Ot E11. 9 TYPE 2 DIABETES MELLITUS WITHOUT COMPLIC 06/02/2018 GANGA HALL MD Ot F17.210 NICOTINE DEPENDENCE, CIGARETTES, UNCOMPL 06/02/2018 GANGA HALL MD Ot I25. 2 OLD MYOCARDIAL INFARCTION 06/02/2018 GANGA HALL MD Ot I48. 91 UNSPECIFIED ATRIAL FIBRILLATION 06/02/2018 GANGA HALL MD Ot J44. 9 CHRONIC OBSTRUCTIVE PULMONARY DISEASE, U 06/02/2018 GANGA HALL MD Ot R06. 02 SHORTNESS OF BREATH 06/02/2018 GANGA HALL MD Ot Z79. 01 ESTATE PLANNING DIRECTOR (CURRENT) USE OF ANTICOAGULANT 06/02/2018 GANGA HALL MD Ot Z79. 52 LONG-TERM (CURRENT) USE OF SYSTEMIC STER 06/02/2018 GANGA HALL MD Ot Z88. 5 ALLERGY STATUS TO NARCOTIC AGENT STATUS 06/02/2018 GANGA HALL MD Ot Z88. 8 ALLERGY STATUS TO OTH DRUG/MEDS/BIOL SUB 06/02/2018 GANGA HALL MD Ot Z91.041 RADIOGRAPHIC DYE ALLERGY STATUS 06/02/2018 GANGA HALL MD Ot Z91.048 OTHER NONMEDICINAL SUBSTANCE ALLERGY STA 06/02/2018 GANGA HALL MD Ot Z95. 0 PRESENCE OF CARDIAC PACEMAKER 06/02/2018 GANGA HALL MD Ot Z95.810 PRESENCE OF AUTOMATIC (IMPLANTABLE) CARD 06/02/2018 ISABEL SARGENT, GANGA Olivia Ot Z99. 81 DEPENDENCE ON SUPPLEMENTAL OXYGEN 06/21/2018 [facility], KEYSHAWN Ot E11.9 TYPE 2 DIABETES MELLITUS WITHOUT COMPLIC 06/21/2018 [facility], KEYSHAWN Ot I25.2 OLD MYOCARDIAL INFARCTION 06/21/2018 BUXTON DO, KEYSHAWN Ot I48.91 UNSPECIFIED ATRIAL FIBRILLATION 06/21/2018 [facility], KEYSHAWN Ot I49.3 VENTRICULAR PREMATURE DEPOLARIZATION 06/21/2018 [facility], KEYSHAWN Ot I50.9 HEART FAILURE, UNSPECIFIED 06/21/2018 BUXTON DO, KEYSHAWN Ot J44.9 CHRONIC OBSTRUCTIVE PULMONARY DISEASE, U 06/21/2018 [facility], KEYSHAWN Ot J96.11 CHRONIC RESPIRATORY FAILURE WITH HYPOXIA 06/21/2018 [facility], KEYSHAWN Ot R00.2 PALPITATIONS 06/21/2018 [facility], KEYSHAWN Ot R06.02 SHORTNESS OF BREATH 06/21/2018 [facility], KEYSHAWN Ot Z77.22 CNTCT W AND EXPSR TO ENVIRON TOBACCO SMO 06/21/2018 [facility], KEYSHAWN Ot Z79.52 ESTATE PLANNING DIRECTOR (CURRENT) USE OF SYSTEMIC STER 06/21/2018 [facility], KEYSHAWN Ot Z88.5 ALLERGY STATUS TO NARCOTIC AGENT STATUS 06/21/2018 [facility], KEYSHAWN Ot Z88.8 ALLERGY STATUS TO OTH DRUG/MEDS/BIOL SUB 06/21/2018 [facility], KEYSHAWN Ot Z89.511 ACQUIRED ABSENCE OF RIGHT LEG BELOW KNEE 06/21/2018 [facility], KEYSHAWN Ot Z91.041 RADIOGRAPHIC DYE ALLERGY STATUS 06/21/2018 [facility], KEYSHAWN Ot Z91.048 OTHER NONMEDICINAL SUBSTANCE ALLERGY STA 06/21/2018 BUXTON DO, KEYSHAWN Ot Z95.810 PRESENCE OF AUTOMATIC (IMPLANTABLE) CARD 06/21/2018 BUXTON DO, KEYSHAWN Ot E11.9 TYPE 2 DIABETES MELLITUS WITHOUT COMPLIC 06/21/2018 BUXTON DO, KEYSHAWN Ot I25.2 OLD MYOCARDIAL INFARCTION 06/21/2018 BUXTON DO, KEYSHAWN Ot I48.91 UNSPECIFIED ATRIAL FIBRILLATION 06/21/2018 BUXTON DO, KEYSHAWN Ot I49.3 VENTRICULAR PREMATURE DEPOLARIZATION 06/21/2018 BUXTON DO, KEYSHAWN Ot I50.9 HEART FAILURE, UNSPECIFIED 06/21/2018 BUXTON DO, KEYSHAWN Ot J44.9 CHRONIC OBSTRUCTIVE PULMONARY DISEASE, U 06/21/2018 BUXTON DO, KEYSHAWN Ot J96.11 CHRONIC RESPIRATORY FAILURE WITH HYPOXIA 06/21/2018 LANDA DO, KEYSHAWN Ot R00.2 PALPITATIONS 06/21/2018 BUXTON DO, KEYSHAWN Ot R06.02 SHORTNESS OF BREATH 06/21/2018 BUXTON DO, KEYSHAWN Ot Z77.22 CNTCT W AND EXPSR TO ENVIRON TOBACCO SMO 06/21/2018 BUXTON DO, KEYSHAWN Ot Z79.52 LONG-TERM (CURRENT) USE OF SYSTEMIC STER 06/21/2018 BUXTON DO, KEYSHAWN Ot Z88.5 ALLERGY STATUS TO NARCOTIC AGENT STATUS 06/21/2018 BUXTON DO, KEYSHAWN Ot Z88.8 ALLERGY STATUS TO OTH DRUG/MEDS/BIOL SUB 06/21/2018 BUXTON DO, KEYSHAWN Ot Z89.511 ACQUIRED ABSENCE OF RIGHT LEG BELOW KNEE 06/21/2018 BUXTON DO, KEYSHAWN Ot Z91.041 RADIOGRAPHIC DYE ALLERGY STATUS 06/21/2018 BUXTON DO, KEYSHAWN Ot Z91.048 OTHER NONMEDICINAL SUBSTANCE ALLERGY STA 06/21/2018 BUXTON DO, KEYSHAWN Ot Z95.810 PRESENCE OF AUTOMATIC (IMPLANTABLE) CARD 06/23/2018 BUXTON DO, KEYSHAWN Ot E11.9 TYPE 2 DIABETES MELLITUS WITHOUT COMPLIC 06/23/2018 BUXTON DO, KEYSHAWN Ot I25.2 OLD MYOCARDIAL INFARCTION 06/23/2018 BUXTON DO, KEYSHAWN Ot I48.91 UNSPECIFIED ATRIAL FIBRILLATION 06/23/2018 BUXTON DO, KEYSHAWN Ot I49.3 VENTRICULAR PREMATURE DEPOLARIZATION 06/23/2018 BUXTON DO, KEYSHAWN Ot I50.9 HEART FAILURE, UNSPECIFIED 06/23/2018 BUXTON DO, KEYSHAWN Ot J44.9 CHRONIC OBSTRUCTIVE PULMONARY DISEASE, U 06/23/2018 BUXTON DO, KEYSHAWN Ot J96.11 CHRONIC RESPIRATORY FAILURE WITH HYPOXIA 06/23/2018 BUXTON DO, KEYSHAWN Ot R00.2 PALPITATIONS 06/23/2018 BUXTON DO, KEYSHAWN Ot R06.02 SHORTNESS OF BREATH 06/23/2018 BUXTON DO, KEYSHAWN Ot Z77.22 CNTCT W AND EXPSR TO ENVIRON TOBACCO SMO 06/23/2018 LANDA DO, KEYSHAWN Ot Z79.52 ESTATE PLANNING DIRECTOR (CURRENT) USE OF SYSTEMIC STER 06/23/2018 BUXTON DO, KEYSHAWN Ot Z88.5 ALLERGY STATUS TO NARCOTIC AGENT STATUS 06/23/2018 BUXTON DO, KEYSHAWN Ot Z88.8 ALLERGY STATUS TO OTH DRUG/MEDS/BIOL SUB 06/23/2018 LANDA DO, KEYSHAWN Ot Z89.511 ACQUIRED ABSENCE OF RIGHT LEG BELOW KNEE 06/23/2018 SYEDA ASKEW, KEYSHAWN Ot Z91.041 RADIOGRAPHIC DYE ALLERGY STATUS 06/23/2018 SYEDA ASKEW, KEYSHAWN Ot Z91.048 OTHER NONMEDICINAL SUBSTANCE ALLERGY STA 06/23/2018 KEYSHAWN LANDA DO Ot Z95.810 PRESENCE OF AUTOMATIC (IMPLANTABLE) CARD 06/28/2018 I25.5 Isch emic cardiomyopathy 06/28/2018 E78.5 Hype rlipidemia, unspecified 06/28/2018 F39 Unspec ified mood (affective) disorder 06/28/2018 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 07/08/2018 XIN LOAIZA MD Ot I50.9 HEART FAILURE, UNSPECIFIED 07/08/2018 XIN LOAIZA MD Ot J44.1 CHRONIC OBSTRUCTIVE PULMONARY DISEASE W 07/08/2018 XIN LOAIZA MD Ot R06.0 2 SHORTNESS OF BREATH 07/08/2018 XIN LOAIZA MD Ot Z79.0 1 LONG-TERM (CURRENT) USE OF ANTICOAGULANT 07/08/2018 XIN LOAIZA MD Ot Z79.5 1 ESTATE PLANNING DIRECTOR (CURRENT) USE OF INHALED STERO 07/08/2018 XIN LOAIZA MD Ot Z79.8 2 ESTATE PLANNING DIRECTOR (CURRENT) USE OF ASPIRIN 07/08/2018 XIN LOAIZA MD Ot Z79.8 4 LONG-TERM (CURRENT) USE OF ORAL HYPOGLYC 07/09/2018 Ot F17.200 NI COTINE DEPENDENCE, UNSPECIFIED, UNCOMP 07/09/2018 Ot I50.9 HEAR T FAILURE, UNSPECIFIED 07/09/2018 Ot J20.9 ACUT E BRONCHITIS, UNSPECIFIED 07/09/2018 Ot J44.0 CIRCULAR SHEAR OPERATOR ALEKS OBSTRUCTIVE PULMON DISEASE W ACU 07/09/2018 Ot J44.1 CIRCULAR SHEAR OPERATOR ALEKS OBSTRUCTIVE PULMONARY DISEASE W 07/09/2018 Ot R06.02 ESDRAS RTNESS OF BREATH 07/09/2018 Ot Z79.52 ROSA G TERM (CURRENT) USE OF SYSTEMIC STER 07/11/2018 XIN LOAIZA MD Ot I50.9 HEART FAILURE, UNSPECIFIED 07/11/2018 XIN LOAIZA MD Ot J44.1 CHRONIC OBSTRUCTIVE PULMONARY DISEASE W 07/11/2018 XIN LOAIZA MD Ot R06.0 2 SHORTNESS OF BREATH 07/11/2018 XIN LOAIZA MD, Ot Z79.0 1 LONG-TERM (CURRENT) USE OF ANTICOAGULANT 07/11/2018 XIN LOAIZA MD, Ot Z79.5 1 LONG-TERM (CURRENT) USE OF INHALED STERO 07/11/2018 XIN LOAIZA MD, Ot Z79.8 2 LONG-TERM (CURRENT) USE OF ASPIRIN 07/11/2018 XIN LOAIZA MD, Ot Z79.8 4 ESTATE PLANNING DIRECTOR (CURRENT) USE OF ORAL HYPOGLYC 07/11/2018 313 COPD 07/11/2018 713 New pa tient consult 07/11/2018 J18.9 Pneu monia, unspecified organism 07/11/2018 R09.02 Hyp oxemia 07/11/2018 YANETH WILKERSON R09 .02 Hypoxemia 07/11/2018 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.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 07/11/2018 YANETH WILKERSON Z72 .0 Tobacco use 08/05/2018 28 Cough 08/05/2018 WALESKA PEREZ J96 .12 Chronic respiratory failure with hypercapnia 08/05/2018 WALESKA PEREZ Z72 .0 Tobacco use 08/05/2018 WALESKA PEREZ J96 .11 Chronic respiratory failure with hypoxia 08/05/2018 YANETH WILKERSON 100 001 Shortness of Breath 08/05/2018 YANETH WILKERSON 100 001 Shortness of Breath 08/05/2018 YANETH WILKERSON 100 001 Shortness of Breath 08/05/2018 YANETH WILKERSON 100 001 Shortness of Breath 08/05/2018 YANETH WILKERSON J44 .1 Chronic obstructive pulmonary disease with (acute) exacerbation 08/05/2018 YANETH WILKERSON J44 .1 Chronic obstructive pulmonary disease with (acute) exacerbation 08/05/2018 YANETH WILKERSON J44 .1 Chronic obstructive pulmonary disease with (acute) exacerbation 09/05/2018 Z95.9 Pres ence of cardiac and vascular implant and graft, unspecified 09/17/2018 ALEXANDRA MERIDA MD Ot E03.9 HYPOTHYROIDISM, UNSPECIFIED 09/17/2018 ALEXANDRA MERIDA MD Ot E11.9 TYPE 2 DIABETES MELLITUS WITHOUT COMPLIC 09/17/2018 ALEXANDRA MERIDA MD, Ot E78.00 PURE HYPERCHOLESTEROLEMIA, UNSPECIFIED 09/17/2018 ALEXANDRA MERIDA MD, Ot F32.9 MAJOR DEPRESSIVE DISORDER, SINGLE EPISOD 09/17/2018 ALEXANDRA MERIDA MD, Ot F41.9 ANXIETY DISORDER, UNSPECIFIED 09/17/2018 ALEXANDRA MERIDA MD, Ot I10 ESSENTIAL (PRIMARY) HYPERTENSION 09/17/2018 ALEXANDRA MERIDA MD, Ot I21.4 NON- ST ELEVATION (NSTEMI) MYOCARDIAL INF 09/17/2018 ALEXANDRA MERIDA MD, Ot I25.10 ATHSCL HEART DISEASE OF [place] CORONARY 09/17/2018 ALEXANDRA MERIDA MD, Ot I48.91 UNSPECIFIED ATRIAL FIBRILLATION 09/17/2018 ALEXANDRA MERIDA MD, Ot J20.9 ACUTE BRONCHITIS, UNSPECIFIED 09/17/2018 ALEXANDRA MERIDA MD, Ot J44.0 CHRONIC OBSTRUCTIVE PULMON DISEASE W ACU 09/17/2018 ALEXANDRA MERIDA MD, Ot R06.02 SHORTNESS OF BREATH 09/17/2018 ALEXADNRA MERIDA MD, Ot Z77.22 CNTCT W AND EXPSR TO ENVIRON TOBACCO SMO 09/17/2018 ALEXANDRA MERIDA MD, Ot Z79.01 LONG-TERM (CURRENT) USE OF ANTICOAGULANT 09/17/2018 ALEXANDRA MERIDA MD, Ot Z79.52 ESTATE PLANNING DIRECTOR (CURRENT) USE OF SYSTEMIC STER 09/17/2018 ALEXANDRA MERIDA MD, Ot Z79.82 ESTATE PLANNING DIRECTOR (CURRENT) USE OF ASPIRIN 09/17/2018 ALEXANDRA MERIDA MD, Ot Z79.84 LONG-TERM (CURRENT) USE OF ORAL HYPOGLYC 09/17/2018 ALEXANDRA MERIDA MD Ot Z88.8 ALLERGY STATUS TO [facility] DRUG/MEDS/BIOL SUB 09/17/2018 ALEXANDRA MERIDA MD, Ot Z89.511 ACQUIRED ABSENCE OF RIGHT LEG BELOW KNEE 09/17/2018 ALEXANDRA MERIDA MD, Ot Z91.041 RADIOGRAPHIC DYE ALLERGY STATUS 09/17/2018 ALEXNADRA MERIDA MD Ot Z95.810 PRESENCE OF AUTOMATIC (IMPLANTABLE) CARD 09/17/2018 ALEXANDRA MERIDA MD, Ot E03.9 HYPOTHYROIDISM, UNSPECIFIED 09/17/2018 ALEXANDRA MERIDA MD, Ot E11.9 TYPE 2 DIABETES MELLITUS WITHOUT COMPLIC 09/17/2018 ALEXANDRA MERIDA MD, Ot E78.00 PURE HYPERCHOLESTEROLEMIA, UNSPECIFIED 09/17/2018 ALEXANDRA MERIDA MD, Ot F32.9 MAJOR DEPRESSIVE DISORDER, SINGLE EPISOD 09/17/2018 ALEXANDRA MERIDA MD, Ot F41.9 ANXIETY DISORDER, UNSPECIFIED 09/17/2018 ALEXANDRA MERIDA MD, Ot I10 ESSENTIAL (PRIMARY) HYPERTENSION 09/17/2018 ALEXANDRA MERIDA MD, Ot I21.4 NON- ST ELEVATION (NSTEMI) MYOCARDIAL INF 09/17/2018 ALEXANDRA MERIDA MD, Ot I25.10 ATHSCL HEART DISEASE OF [place] CORONARY 09/17/2018 ALEXANDRA MERIDA MD, Ot I48.91 UNSPECIFIED ATRIAL FIBRILLATION 09/17/2018 ALEXANDRA MERIDA MD, Ot J20.9 ACUTE BRONCHITIS, UNSPECIFIED 09/17/2018 ALEXANDRA MERIDA MD, Ot J44.0 CHRONIC OBSTRUCTIVE PULMON DISEASE W ACU 09/17/2018 ALEXANDRA MERIDA MD, Ot R06.02 SHORTNESS OF BREATH 09/17/2018 ALEXANDRA MERIDA MD, Ot Z77.22 CNTCT W AND EXPSR TO ENVIRON TOBACCO SMO 09/17/2018 ALEXANDRA MERIDA MD, Ot Z79.01 ESTATE PLANNING DIRECTOR (CURRENT) USE OF ANTICOAGULANT 09/17/2018 ALEXANDRA MERIDA MD, Ot Z79.52 ESTATE PLANNING DIRECTOR (CURRENT) USE OF SYSTEMIC STER 09/17/2018 ALEXANDRA MERIDA MD, Ot Z79.82 LONG-TERM (CURRENT) USE OF ASPIRIN 09/17/2018 ALEXANDRA MERIDA MD, Ot Z79.84 LONG-TERM (CURRENT) USE OF ORAL HYPOGLYC 09/17/2018 ALEXANDRA MERIDA MD Ot Z88.8 ALLERGY STATUS TO [facility] DRUG/MEDS/BIOL SUB 09/17/2018 ALEXANDRA MERIDA MD, Ot Z89.511 ACQUIRED ABSENCE OF RIGHT LEG BELOW KNEE 09/17/2018 ALEXANDRA MERIDA MD, Ot Z91.041 RADIOGRAPHIC DYE ALLERGY STATUS 09/17/2018 ALEXANDRA MERIDA MD, Ot Z95.810 PRESENCE OF AUTOMATIC (IMPLANTABLE) CARD 09/17/2018 I25.5 Isch emic cardiomyopathy 09/17/2018 SONIA RUIZ I25.5 Ischemic cardiomyopathy 09/17/2018 DILLARD DOLORES E78.2 Mixed hyperlipidemia 09/17/2018 DILLARD, DOLORES E78.2 Mixed hyperlipidemia 09/17/2018 WALESKA PEREZ J96 .11 Chronic respiratory failure with hypoxia 09/19/2018 MONROE, PATSY Z71.9 Counseling, unspecified 09/19/2018 MONROE, PATSY Z71.9 Counseling, unspecified 09/19/2018 MONROE, PATSY Z71.9 Counseling, unspecified 09/19/2018 MONROE, PATSY Z71.9 Counseling, unspecified 09/19/2018 MONROE, PATSY Z71.9 Counseling, unspecified 09/19/2018 MONROE, PATSY Z71.9 Counseling, unspecified 09/19/2018 MONROE, PATSY Z71.9 Counseling, unspecified 09/19/2018 MONROE, PATSY Z71.9 Counseling, unspecified 09/20/2018 MONROE, PATSY Z71.9 Counseling, unspecified 09/20/2018 MONROE, PATSY Z71.9 Counseling, unspecified 09/20/2018 MONROE, PATSY Z71.9 Counseling, unspecified 09/20/2018 MONROE, PATSY Z71.9 Counseling, unspecified 09/20/2018 MONROE, PATSY Z71.9 Counseling, unspecified 09/21/2018 MONROE, PATSY Z71.9 Counseling, unspecified 09/21/2018 MONROE, PATSY Z71.9 Counseling, unspecified 09/21/2018 MONROE, PATSY Z71.9 Counseling, unspecified 09/21/2018 MONROE, PATSY Z71.9 Counseling, unspecified 09/21/2018 MONROE, PATSY Z71.9 Counseling, unspecified 09/21/2018 MONROE, PATSY Z71.9 Counseling, unspecified 09/21/2018 MONROE, PATSY Z71.9 Counseling, unspecified 09/21/2018 MONROE, PATSY Z71.9 Counseling, unspecified 09/22/2018 MONROE, PATSY Z71.9 Counseling, unspecified 09/22/2018 MONROE, PATSY Z71.9 Counseling, unspecified 09/22/2018 MONROE, PATSY Z71.9 Counseling, unspecified 09/22/2018 MONROE, PATSY Z71.9 Counseling, unspecified 09/22/2018 MONROE, PATSY Z71.9 Counseling, unspecified 09/22/2018 MONROE, PATSY Z71.9 Counseling, unspecified 09/22/2018 MONROE, PATSY Z71.9 Counseling, unspecified 09/22/2018 MONROE, PATSY Z71.9 Counseling, unspecified 09/23/2018 MONROE, PATSY Z71.9 Counseling, unspecified 09/23/2018 MONROE, PATSY Z71.9 Counseling, unspecified 09/23/2018 MONROE, PATSY Z71.9 Counseling, unspecified 09/23/2018 MONROE, PATSY Z71.9 Counseling, unspecified 09/23/2018 MONROE, PATSY Z71.9 Counseling, unspecified 09/23/2018 MONROE, PATSY Z71.9 Counseling, unspecified 09/23/2018 MONROE, PATSY Z71.9 Counseling, unspecified 09/23/2018 MONROE, PATSY Z71.9 Counseling, unspecified 09/23/2018 MONROE, PATSY Z71.9 Counseling, unspecified 09/23/2018 MONROE, PATSY Z71.9 Counseling, unspecified 09/23/2018 MONROE, PATSY Z71.9 Counseling, unspecified 09/24/2018 MONROE, PATSY Z71.9 Counseling, unspecified 09/24/2018 MONROE, PATSY Z71.9 Counseling, unspecified 09/24/2018 MONROE, PATSY Z71.9 Counseling, unspecified 09/24/2018 DOLORES DILLARD I50.42 Chronic combined systolic (congestive) and diastolic (congestive) heart failure 09/24/2018 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 09/24/2018 SONIA RUIZ I50.42 Chronic combined systolic (congestive) and diastolic (congestive) heart failure 09/24/2018 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 09/24/2018 DILLARD, DOLORES E11.9 Type 2 diabetes mellitus without complications 09/24/2018 DILLARD DOLORES I10 Essential (primary) hypertension 09/24/2018 DILLARD DOLORES E11.9 Type 2 diabetes mellitus without complications 09/24/2018 DILLARD DOLORES I10 Essential (primary) hypertension 09/24/2018 I10 Essent ial (primary) hypertension 09/24/2018 Z95.810 Pr esence of automatic (implantable) cardiac defibrillator 09/24/2018 SONIA RUIZ Z95.810 Presence of automatic (implantable) cardiac defibrillator 09/24/2018 CATHERINEETWALESKA HALLMAN44 .9 Chronic obstructive pulmonary disease, unspecified 09/24/2018 DOLORES DILLARD J44.9 Chronic obstructive pulmonary disease, unspecified 09/24/2018 DOLORES DILLARD44.9 Chronic obstructive pulmonary disease, unspecified 09/24/2018 PATSY MONROE Z71.9 Counseling, unspecified 09/24/2018 PATSY MONROE Z71.9 Counseling, unspecified 09/24/2018 PATSY MONROE Z71.9 Counseling, unspecified 10/12/2018 DOLORES DILLARD [id number] Follow-up 10/12/2018 DOLORES DILLARD [id number] Medication Refill 10/12/2018 DOLORES DILLARD Z23 Encounter for immunization 10/12/2018 DOLORES DILLARD23 Encounter for immunization 10/18/2018 Z95.810 Pr esence of automatic (implantable) cardiac defibrillator 10/18/2018 Z95.9 Pres ence of cardiac and vascular implant and graft, unspecified 10/27/2018 Ot E03.9 HYPO THYROIDISM, UNSPECIFIED 10/27/2018 Ot E11.9 TYPE 2 DIABETES MELLITUS WITHOUT COMPLIC 10/27/2018 Ot E86.0 DEHY DRATION 10/27/2018 Ot F17.290 NI COTINE DEPENDENCE, OTHER TOBACCO PRODU 10/27/2018 Ot I10 ESSENT IAL (PRIMARY) HYPERTENSION 10/27/2018 Ot 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 OBSTRUCTIVE 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 DISEASE, U 10/27/2018 Ot J96.11 CHR ONIC RESPIRATORY FAILURE WITH HYPOXIA 10/27/2018 Ot R19.7 DIAR OPAL, UNSPECIFIED 10/27/2018 Ot Z89.511 AC QUIRED ABSENCE OF RIGHT LEG BELOW KNEE 10/27/2018 Ot Z90.89 ACQ UIRED ABSENCE OF OTHER ORGANS 10/27/2018 Ot Z91.041 RA DIOGRAPHIC DYE ALLERGY STATUS 10/27/2018 Ot Z99.81 DEP ENDENCE ON SUPPLEMENTAL OXYGEN 10/31/2018 Ot E03.9 HYPO THYROIDISM, UNSPECIFIED 10/31/2018 Ot E11.9 TYPE 2 DIABETES MELLITUS WITHOUT COMPLIC 10/31/2018 Ot E86.0 DEHY DRATION 10/31/2018 Ot F17.290 NI COTINE DEPENDENCE, OTHER TOBACCO PRODU 10/31/2018 Ot I10 ESSENT IAL (PRIMARY) HYPERTENSION 10/31/2018 Ot 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 9 CARDIOMYOPATHY, UNSPECIFIED 11/17/2018 MAGED RODGERS DO Ot I50. 9 HEART FAILURE, UNSPECIFIED 11/17/2018 MAGED RODGERS DO Ot J44. 9 CHRONIC OBSTRUCTIVE PULMONARY DISEASE, U 11/17/2018 MAGED RODGERS DO Ot R06. 02 SHORTNESS OF BREATH 11/17/2018 MAGED RODGERS DO Ot R07. 9 CHEST PAIN, UNSPECIFIED 11/17/2018 MAGED RODGERS DO Ot R79. 89 OTHER SPECIFIED ABNORMAL FINDINGS OF BLO 11/17/2018 MAGED RODGERS DO Ot Z88. 5 ALLERGY STATUS TO NARCOTIC AGENT STATUS 11/17/2018 MAGED RODGERS DO Ot Z88. 8 ALLERGY STATUS TO OTH DRUG/MEDS/BIOL SUB 11/17/2018 MAGED RODGERS DO Ot Z91.041 RADIOGRAPHIC DYE ALLERGY STATUS 11/17/2018 MAGED RODGERS DO Ot Z91.048 OTHER NONMEDICINAL SUBSTANCE ALLERGY STA 11/17/2018 MAGED RODGERS DO Ot Z95.810 PRESENCE OF AUTOMATIC (IMPLANTABLE) CARD 11/18/2018 I48.0 Paro xysmal atrial fibrillation 11/18/2018 SONIA RUIZ I48.0 Paroxysmal atrial fibrillation 11/18/2018 I47.2 Vent ricular tachycardia 11/18/2018 Z95.810 Pr esence of automatic (implantable) cardiac defibrillator 11/25/2018 XIN LOAIZA MD Ot E03.9 HYPOTHYROIDISM, UNSPECIFIED 11/25/2018 XIN LOAIZA MD Ot E11.9 TYPE 2 DIABETES MELLITUS WITHOUT COMPLIC 11/25/2018 XIN LOAIZA MD Ot F32.9 MAJOR DEPRESSIVE DISORDER, SINGLE EPISOD 11/25/2018 XIN LOAIZA MD, Ot F41.9 ANXIETY DISORDER, UNSPECIFIED 11/25/2018 XIN LOAIZA MD, Ot I10 ESSENTIAL (PRIMARY) HYPERTENSION 11/25/2018 XIN LOAIZA MD, Ot J44.1 CHRONIC OBSTRUCTIVE PULMONARY DISEASE W 11/25/2018 XIN LOAIZA MD, Ot R05 COUGH 11/25/2018 XIN LOAIZA MD, Ot R07.8 9 OTHER CHEST PAIN 11/25/2018 XIN LOAIZA MD, Ot Z77.2 2 CNTCT W AND EXPSR TO ENVIRON TOBACCO SMO 11/25/2018 XIN LOAIZA MD, Ot Z79.0 1 LONG-TERM (CURRENT) USE OF ANTICOAGULANT 11/25/2018 XIN LOAIZA MD, Ot Z79.5 1 LONG-TERM (CURRENT) USE OF INHALED STERO 11/25/2018 XIN LOAIZA MD, Ot Z79.5 2 LONG-TERM (CURRENT) USE OF SYSTEMIC STER 11/25/2018 XIN LOAIZA MD, Ot Z79.8 2 LONG-TERM (CURRENT) USE OF ASPIRIN 11/25/2018 XIN LOAIZA MD, Ot Z79.8 4 LONG-TERM (CURRENT) USE OF ORAL HYPOGLYC 11/25/2018 XIN LOAIZA MD, Ot Z88.5 ALLERGY STATUS TO NARCOTIC AGENT STATUS 11/25/2018 XIN LOAIZA MD, Ot Z88.8 ALLERGY STATUS TO OTH DRUG/MEDS/BIOL SUB 11/25/2018 XIN LOAIZA MD, Ot Z90.8 9 ACQUIRED ABSENCE OF OTHER ORGANS 11/25/2018 XIN LOAIZA MD, Ot Z91.0 41 RADIOGRAPHIC DYE ALLERGY STATUS 12/05/2018 Z95.810 Pr esence of automatic (implantable) cardiac defibrillator 12/05/2018 Z95.9 Pres ence of cardiac and vascular implant and graft, unspecified 12/14/2018 SONIA RUIZ 127 Congestive Heart Failure 12/14/2018 SONIA RUIZ 127 Congestive Heart Failure 12/14/2018 SONIA RUIZ I11.0 Hypertensive heart disease with heart failure 12/14/2018 SONIA RUIZ I47.2 Ventricular tachycardia 12/14/2018 SONIA RUIZ I50.42 Chronic combined systolic (congestive) and diastolic (congestive) heart failure 12/14/2018 SONIA RUIZ I11.0 Hypertensive heart disease with heart failure 12/14/2018 SONIA RUIZ I47.2 Ventricular tachycardia 12/14/2018 SONIA RUIZ I50.42 Chronic combined systolic (congestive) and diastolic (congestive) heart failure 12/14/2018 SONIA RUIZ I11.0 Hypertensive heart disease with heart failure 12/14/2018 SONIA RUIZ I47.2 Ventricular tachycardia 12/14/2018 SONIA RUIZ I50.42 Chronic combined systolic (congestive) and diastolic (congestive) heart failure 01/09/2019 Z95.9 Pres ence of cardiac and vascular implant and graft, unspecified 01/15/2019 GANGA HALL MD Ot E03. 9 HYPOTHYROIDISM, UNSPECIFIED 01/15/2019 GANGA HALL MD Ot E11. 9 TYPE 2 DIABETES MELLITUS WITHOUT COMPLIC 01/15/2019 GANGA HALL MD Ot F17.290 NICOTINE DEPENDENCE, OTHER TOBACCO PRODU 01/15/2019 GANGA HALL MD Ot F32. 9 MAJOR DEPRESSIVE DISORDER, SINGLE EPISOD 01/15/2019 GANGA HALL MD Ot F41. 9 ANXIETY DISORDER, UNSPECIFIED 01/15/2019 GANGA HALL MD Ot I10 ESSENTIAL (PRIMARY) HYPERTENSION 01/15/2019 GANGA HALL MD Ot J44. 1 CHRONIC OBSTRUCTIVE PULMONARY DISEASE W 01/15/2019 GANGA HALL MD Ot R05 COUGH 01/15/2019 GANGA HALL MD Ot Z79. 01 ESTATE PLANNING DIRECTOR (CURRENT) USE OF ANTICOAGULANT 01/15/2019 GANGA HALL MD Ot Z79. 51 LONG-TERM (CURRENT) USE OF INHALED STERO 01/15/2019 GANGA HALL MD Ot Z79. 52 ESTATE PLANNING DIRECTOR (CURRENT) USE OF SYSTEMIC STER 01/15/2019 GANGA HALL MD Ot Z79. 82 ESTATE PLANNING DIRECTOR (CURRENT) USE OF ASPIRIN 01/15/2019 GANGA HALL MD Ot Z79. 84 ESTATE PLANNING DIRECTOR (CURRENT) USE OF ORAL HYPOGLYC 01/15/2019 GANGA HALL MD Ot Z88. 5 ALLERGY STATUS TO NARCOTIC AGENT STATUS 01/15/2019 GANGA HALL MD Ot Z88. 8 ALLERGY STATUS TO OTH DRUG/MEDS/BIOL SUB 01/15/2019 GANGA HALL MD Ot Z90. 89 ACQUIRED ABSENCE OF OTHER ORGANS 01/15/2019 GANGA HALL MD Ot Z91.041 RADIOGRAPHIC DYE ALLERGY STATUS 01/18/2019 DOLORES DILLARD [id number] Follow-up 01/18/2019 DOLORES DILLARD F13.20 Sedative, hypnotic or anxiolytic dependence, uncomplicated 01/18/2019 DOLORES DILLARD F11.20 Opioid dependence, uncomplicated 01/18/2019 TRAN DILLARDIN Z00.00 Encounter for general adult medical examination without abnormal findings 01/18/2019 DOLORES DILLARD J96.21 Acute and chronic respiratory failure with hypoxia 01/18/2019 DOLORES DILLARD J96.22 Acute and chronic respiratory failure with hypercapnia 01/26/2019 XIN LOAIZA MD, Ot E03.9 HYPOTHYROIDISM, UNSPECIFIED 01/26/2019 XIN LOAIZA MD, Ot E11.9 TYPE 2 DIABETES MELLITUS WITHOUT COMPLIC 01/26/2019 XIN LOAIZA MD, Ot F32.9 MAJOR DEPRESSIVE DISORDER, SINGLE EPISOD 01/26/2019 XIN LOAIZA MD, Ot F41.9 ANXIETY DISORDER, UNSPECIFIED 01/26/2019 XIN LOAIZA MD, Ot I10 ESSENTIAL (PRIMARY) HYPERTENSION 01/26/2019 XIN LOAIZA MD, Ot J44.9 CHRONIC OBSTRUCTIVE PULMONARY DISEASE, U 01/26/2019 XIN LOAIZA MD, Ot R07.9 CHEST PAIN, UNSPECIFIED 01/26/2019 XIN LOAIZA MD, Ot R79.8 9 OTHER SPECIFIED ABNORMAL FINDINGS OF BLO 01/26/2019 XIN LOAIZA MD, Ot T82.111A BREAKDOWN OF CARDIAC PULSE GENERATOR (BA 01/26/2019 XIN LOAIZA MD, Ot Z77.2 2 CNTCT W AND EXPSR TO ENVIRON TOBACCO SMO 01/26/2019 XIN LOAIZA MD, Ot Z79.0 1 LONG-TERM (CURRENT) USE OF ANTICOAGULANT 01/26/2019 XIN LOAIZA MD, Ot Z79.5 1 LONG-TERM (CURRENT) USE OF INHALED STERO 01/26/2019 XIN LOAIZA MD, Ot Z79.5 2 ESTATE PLANNING DIRECTOR (CURRENT) USE OF SYSTEMIC STER 01/26/2019 XIN LOAIZA MD, Ot Z79.8 2 ESTATE PLANNING DIRECTOR (CURRENT) USE OF ASPIRIN 01/26/2019 XIN LOAIZA MD, Ot Z79.8 4 LONG-TERM (CURRENT) USE OF ORAL HYPOGLYC 01/26/2019 XIN LOAIZA MD, Ot Z88.5 ALLERGY STATUS TO NARCOTIC AGENT STATUS 01/26/2019 XIN LOAIZA MD, Ot Z88.8 ALLERGY STATUS TO OTH DRUG/MEDS/BIOL SUB 01/26/2019 XIN LOAIZA MD, Ot Z90.8 9 ACQUIRED ABSENCE OF OTHER ORGANS 01/26/2019 XIN LOAIZA MD, Ot Z91.0 41 RADIOGRAPHIC DYE ALLERGY STATUS 01/26/2019 ALEXANDRA ACOSTA R07.9 Chest pain, unspecified 01/26/2019 NICOLAS BAUTISTA I25.5 Ischemic cardiomyopathy 01/26/2019 NICOLAS BAUTISTA I50.42 Chronic combined systolic (congestive) and diastolic (congestive) heart failure 01/26/2019 NICOLAS BAUTISTA J44.9 Chronic obstructive pulmonary disease, unspecified 01/26/2019 NICOLAS BAUTISTA Z99.81 Dependence on supplemental oxygen 01/26/2019 Z99.81 Dep endence on supplemental oxygen 01/26/2019 NICOLAS BAUTISTA Z89.511 Acquired absence of right leg below knee 02/09/2019 MOSES PARKER MD Ot E03. 9 HYPOTHYROIDISM, UNSPECIFIED 02/09/2019 MOSES PARKER MD Ot E11. 9 TYPE 2 DIABETES MELLITUS WITHOUT COMPLIC 02/09/2019 MOSES PARKER MD, Ot F32. 9 MAJOR DEPRESSIVE DISORDER, SINGLE EPISOD 02/09/2019 MOSES PARKER MD, Ot F41. 9 ANXIETY DISORDER, UNSPECIFIED 02/09/2019 MOSES PARKER MD Ot I10 ESSENTIAL (PRIMARY) HYPERTENSION 02/09/2019 MOSES PARKER MD, Ot I21. 3 ST ELEVATION (STEMI) MYOCARDIAL INFARCTI 02/09/2019 MOSES PARKER MD, Ot I25. 10 ATHSCL HEART DISEASE OF [place] CORONARY 02/09/2019 MOSES PARKER MD, Ot J44. 9 CHRONIC OBSTRUCTIVE PULMONARY DISEASE, U 02/09/2019 MOSES PARKER MD, Ot J96. 90 RESPIRATORY FAILURE, UNSP, UNSP W HYPOXI 02/09/2019 MOSES PARKER MD, Ot R06. 89 OTHER ABNORMALITIES OF BREATHING 02/09/2019 MOSES PARKER MD, Ot Z77. 22 CNTCT W AND EXPSR TO ENVIRON TOBACCO SMO 02/09/2019 MOSES PARKER MD, Ot Z79. 01 LONG-TERM (CURRENT) USE OF ANTICOAGULANT 02/09/2019 MOSES PARKER MD, Ot Z79. 51 ESTATE PLANNING DIRECTOR (CURRENT) USE OF INHALED STERO 02/09/2019 MOSES PARKER MD, Ot Z79. 52 ESTATE PLANNING DIRECTOR (CURRENT) USE OF SYSTEMIC STER 02/09/2019 MOSES PARKER MD, Ot Z79. 82 ESTATE PLANNING DIRECTOR (CURRENT) USE OF ASPIRIN 02/09/2019 MOSES PARKER MD, Ot Z79. 84 LONG-TERM (CURRENT) USE OF ORAL HYPOGLYC 02/09/2019 MOSES PARKER MD, Ot Z88. 5 ALLERGY STATUS TO NARCOTIC AGENT STATUS 02/09/2019 MOSES PARKER MD, Ot Z88. 8 ALLERGY STATUS TO OTH DRUG/MEDS/BIOL SUB 02/09/2019 MOSES PARKER MD, Ot Z89.511 ACQUIRED ABSENCE OF RIGHT LEG BELOW KNEE 02/09/2019 MOSES PARKER MD, Ot Z90. 49 ACQUIRED ABSENCE OF OTHER SPECIFIED PART 02/09/2019 MOSES PARKER MD, Ot Z91.041 RADIOGRAPHIC DYE ALLERGY STATUS 02/09/2019 MOSES PARKER MD, Ot Z95. 0 PRESENCE OF CARDIAC PACEMAKER 02/20/2019 Z95.810 Pr esence of automatic (implantable) cardiac defibrillator 02/20/2019 Z95.9 Pres ence of cardiac and vascular implant and graft, unspecified 02/23/2019 MADDIE OLVERA MD, Ot E03.9 HYPOTHYROIDISM, UNSPECIFIED 02/23/2019 MADDIE OLVERA MD, Ot E11.9 TYPE 2 DIABETES MELLITUS WITHOUT COMPLIC 02/23/2019 MDADIE OLVERA MD, Ot F32.9 MAJOR DEPRESSIVE DISORDER, SINGLE EPISOD 02/23/2019 MADDIE OLVERA MD, Ot F41.9 ANXIETY DISORDER, UNSPECIFIED 02/23/2019 MADDIE OLVERA MD, Ot I11.0 HYPERTENSIVE HEART DISEASE WITH HEART FA 02/23/2019 MADDIE OLVERA MD, Ot I47.2 VENTRICULAR TACHYCARDIA 02/23/2019 MADDIE OLVERA MD, Ot I50.9 HEART FAILURE, UNSPECIFIED 02/23/2019 MADDIE OVLERA MD, Ot J44.9 CHRONIC OBSTRUCTIVE PULMONARY DISEASE, U 02/23/2019 MADDIE OLVERA MD, Ot Z77.22 CNTCT W AND EXPSR TO ENVIRON TOBACCO SMO 02/23/2019 MADDIE OLVERA MD, Ot Z79.01 LONG-TERM (CURRENT) USE OF ANTICOAGULANT 02/23/2019 MADDIE OLVERA MD, Ot Z79.51 ESTATE PLANNING DIRECTOR (CURRENT) USE OF INHALED STERO 02/23/2019 MADDIE OLVERA MD, Ot Z79.52 LONG-TERM (CURRENT) USE OF SYSTEMIC STER 02/23/2019 AMDDIE OLVERA MD, Ot Z79.82 LONG-TERM (CURRENT) USE OF ASPIRIN 02/23/2019 MADDIE OLVERA MD, Ot Z79.84 ESTATE PLANNING DIRECTOR (CURRENT) USE OF ORAL HYPOGLYC 02/23/2019 MADDIE OLVERA MD, Ot Z88.5 ALLERGY STATUS TO NARCOTIC AGENT STATUS 02/23/2019 MADDIE OLVERA MD, Ot Z88.8 ALLERGY STATUS TO OTH DRUG/MEDS/BIOL SUB 02/23/2019 MADDIE OLVERA MD, Ot Z90.89 ACQUIRED ABSENCE OF OTHER ORGANS 02/23/2019 MADDIE OLVERA MD, Ot Z91.041 RADIOGRAPHIC DYE ALLERGY STATUS 02/23/2019 MADDIE OLVERA MD, Ot Z95.810 PRESENCE OF AUTOMATIC (IMPLANTABLE) CARD 02/24/2019 YOHANNES DUENAS I47.2 Ventricular tachycardia 02/24/2019 YOHANNES DUENAS I10 Essential (primary) hypertension 02/24/2019 YOHANNES DUENAS I25.5 Ischemic cardiomyopathy 02/24/2019 EZEQUIEL DUENASB Z79.01 halfway (current) use of anticoagulants 02/24/2019 YOHANNES DUENAS I50.42 Chronic combined systolic (congestive) and diastolic (congestive) heart failure 02/24/2019 EZEQUIEL DUENASB Z95.810 Presence of automatic (implantable) cardiac defibrillator 02/24/2019 YOHANNES DUENAS I21.A1 Myocardial infarction type 2 02/24/2019 YOHANNES DUENAS I25.10 Atherosclerotic heart disease of [place] coronary artery without angina pectoris 02/24/2019 YOHANNES DUENAS J44.9 Chronic obstructive pulmonary disease, unspecified 02/24/2019 YOHANNES DUENAS I73.9 Peripheral vascular disease, unspecified 02/24/2019 YOHANNES DUENAS 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, right lower leg, initial encounter 02/24/2019 YOHANNES DUENAS Z87.891 Personal history of nicotine dependence 02/24/2019 YOHANNES DUENAS I48.0 Paroxysmal atrial fibrillation 02/24/2019 I48.0 Paro xysmal atrial fibrillation 02/27/2019 YOHANNES DUENAS I50.42 Chronic combined systolic (congestive) and diastolic (congestive) heart failure 02/27/2019 YOHANNES DUENAS I50.43 Acute on chronic combined systolic (congestive) and diastolic (congestive) heart failure 03/01/2019 MADDIE OLVERA MD Ot E03.9 HYPOTHYROIDISM, UNSPECIFIED 03/01/2019 MADDIE OLVERA MD Ot E11.9 TYPE 2 DIABETES MELLITUS WITHOUT COMPLIC 03/01/2019 MADDIE OLVERA MD, Ot F32.9 MAJOR DEPRESSIVE DISORDER, SINGLE EPISOD 03/01/2019 MADDIE OLVERA MD, Ot F41.9 ANXIETY DISORDER, UNSPECIFIED 03/01/2019 MADDIE OLVERA MD, Ot I11.0 HYPERTENSIVE HEART DISEASE WITH HEART FA 03/01/2019 MADDIE OLVERA MD, Ot I47.2 VENTRICULAR TACHYCARDIA 03/01/2019 MADDIE OLVERA MD, Ot I50.9 HEART FAILURE, UNSPECIFIED 03/01/2019 MADDIE OLVERA MD, Ot J44.9 CHRONIC OBSTRUCTIVE PULMONARY DISEASE, U 03/01/2019 MADDIE OLVERA MD, Ot Z77.22 CNTCT W AND EXPSR TO ENVIRON TOBACCO SMO 03/01/2019 MADDIE OLVERA MD, Ot Z79.01 ESTATE PLANNING DIRECTOR (CURRENT) USE OF ANTICOAGULANT 03/01/2019 MADDIE OLVERA MD, Ot Z79.51 LONG-TERM (CURRENT) USE OF INHALED STERO 03/01/2019 MADDIE OLVERA MD, Ot Z79.52 ESTATE PLANNING DIRECTOR (CURRENT) USE OF SYSTEMIC STER 03/01/2019 MADDIE OLVERA MD, Ot Z79.82 ESTATE PLANNING DIRECTOR (CURRENT) USE OF ASPIRIN 03/01/2019 MADDIE OLVERA MD, Ot Z79.84 ESTATE PLANNING DIRECTOR (CURRENT) USE OF ORAL HYPOGLYC 03/01/2019 MADDIE OLVERA MD, Ot Z88.5 ALLERGY STATUS TO NARCOTIC AGENT STATUS 03/01/2019 MADDIE OLVERA MD, Ot Z88.8 ALLERGY STATUS TO OTH DRUG/MEDS/BIOL SUB 03/01/2019 MADDIE OLVERA MD, Ot Z90.89 ACQUIRED ABSENCE OF OTHER ORGANS 03/01/2019 MADDIE OLVERA MD, Ot Z91.041 RADIOGRAPHIC DYE ALLERGY STATUS 03/01/2019 MADDIE OLVERA MD, Ot Z95.810 PRESENCE OF AUTOMATIC (IMPLANTABLE) CARD 03/15/2019 MOSES PARKER MD Ot E03. 9 HYPOTHYROIDISM, UNSPECIFIED 03/15/2019 MOSES PARKER MD Ot E11. 9 TYPE 2 DIABETES MELLITUS WITHOUT COMPLIC 03/15/2019 MOSES PARKER MD Ot F17.290 NICOTINE DEPENDENCE, OTHER TOBACCO PRODU 03/15/2019 MOSES PARKER MD Ot F32. 9 MAJOR DEPRESSIVE DISORDER, SINGLE EPISOD 03/15/2019 MOSES PARKER MD Ot F41. 9 ANXIETY DISORDER, UNSPECIFIED 03/15/2019 MOSES PARKER MD Ot I10 ESSENTIAL (PRIMARY) HYPERTENSION 03/15/2019 MOSES PARKER MD Ot I21. 9 ACUTE MYOCARDIAL INFARCTION, UNSPECIFIED 03/15/2019 MOSES PARKER MD Ot I47. 2 VENTRICULAR TACHYCARDIA 03/15/2019 MOSES PARKER MD, Ot J44. 9 CHRONIC OBSTRUCTIVE PULMONARY DISEASE, U 03/15/2019 MOSES PARKER MD Ot R07. 9 CHEST PAIN, UNSPECIFIED 03/15/2019 MOSES PARKER MD Ot Z79. 01 ESTATE PLANNING DIRECTOR (CURRENT) USE OF ANTICOAGULANT 03/15/2019 MOSES PARKER MD Ot Z79. 51 LONG-TERM (CURRENT) USE OF INHALED STERO 03/15/2019 MOSES PARKER MD Ot Z79. 82 LONG-TERM (CURRENT) USE OF ASPIRIN 03/15/2019 MOSES PARKER MD Ot Z79. 84 ESTATE PLANNING DIRECTOR (CURRENT) USE OF ORAL HYPOGLYC 03/15/2019 MOSES PARKER MD Ot Z88. 5 ALLERGY STATUS TO NARCOTIC AGENT STATUS 03/15/2019 MOSES PARKER MD Ot Z88. 8 ALLERGY STATUS TO OTH DRUG/MEDS/BIOL SUB 03/15/2019 MOSES PARKER MD Ot Z91.041 RADIOGRAPHIC DYE ALLERGY STATUS 03/15/2019 ALEXANDRA ACOSTA [id number] Chest pain 03/15/2019 ALEXANDRA ACOSTA [id number] Chest pain 03/15/2019 ALEXANDRA ACOSTA 252009 Chest pain 03/15/2019 ALEXANDRA ACOSTA [id number] Chest pain 03/16/2019 ALEXANDRA ACOSTA I47.2 Ventricular tachycardia 03/16/2019 ALEXANDRA ACOSTA R79.89 Other specified abnormal findings of blood chemistry 03/16/2019 ALEXANDRA ACOSTA I47.2 Ventricular tachycardia 03/16/2019 ALEXANDRA ACOSTA R79.89 Other specified abnormal findings of blood chemistry 03/16/2019 ALEXANDRA ACOSTA I47.2 Ventricular tachycardia 03/16/2019 ALEXANDRA ACOSTA R79.89 Other specified abnormal findings of blood chemistry 03/16/2019 ALEXANDRA ACOSTA I47.2 Ventricular tachycardia 03/16/2019 ALEXANDRA ACOSTA R79.89 Other specified abnormal findings of blood chemistry 03/16/2019 ALEXANDRA ACOSTA I47.2 Ventricular tachycardia 03/16/2019 ALEXANDRA ACOSTA R79.89 Other specified abnormal findings of blood chemistry 03/16/2019 ALEXANDRA ACOSTA I47.2 Ventricular tachycardia 03/16/2019 ALEXANDRA ACOSTA R79.89 Other specified abnormal findings of blood chemistry 03/16/2019 ALEXANDRA ACOSTA R79.89 Other specified abnormal findings of blood chemistry 03/16/2019 Z79.01 Rosa g term (current) use of anticoagulants 03/16/2019 Z95.810 Pr esence of automatic (implantable) cardiac defibrillator 03/16/2019 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 9 HYPOTHYROIDISM, UNSPECIFIED 03/17/2019 MOSES PARKER MD A Ot E11. 9 TYPE 2 DIABETES MELLITUS WITHOUT COMPLIC 03/17/2019 KEITH SARGENT, MOSES A Ot F17.290 NICOTINE DEPENDENCE, OTHER TOBACCO PRODU 03/17/2019 MOSES PARKER MD A Ot F32. 9 MAJOR DEPRESSIVE DISORDER, SINGLE EPISOD 03/17/2019 MOSES PARKER MD A Ot F41. 9 ANXIETY DISORDER, UNSPECIFIED 03/17/2019 MOSES PARKER MD A Ot I10 ESSENTIAL (PRIMARY) HYPERTENSION 03/17/2019 MOSES PARKER MD Ot I21. 9 ACUTE MYOCARDIAL INFARCTION, UNSPECIFIED 03/17/2019 MOSES PARKER MD A Ot I47. 2 VENTRICULAR TACHYCARDIA 03/17/2019 MOSES PARKER MD A Ot J44. 9 CHRONIC OBSTRUCTIVE PULMONARY DISEASE, U 03/17/2019 MOSES PARKER MD Ot R07. 9 CHEST PAIN, UNSPECIFIED 03/17/2019 MOSES PARKER MD A Ot Z79. 01 ESTATE PLANNING DIRECTOR (CURRENT) USE OF ANTICOAGULANT 03/17/2019 MOSES PARKER MD Ot Z79. 51 ESTATE PLANNING DIRECTOR (CURRENT) USE OF INHALED STERO 03/17/2019 MOSES PARKER MD, Ot Z79. 82 LONG-TERM (CURRENT) USE OF ASPIRIN 03/17/2019 MOSES PARKER MD Ot Z79. 84 ESTATE PLANNING DIRECTOR (CURRENT) USE OF ORAL HYPOGLYC 03/17/2019 MOSES PARKER MD Ot Z88. 5 ALLERGY STATUS TO NARCOTIC AGENT STATUS 03/17/2019 MOSES PARKER MD Ot Z88. 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 9 HYPOTHYROIDISM, UNSPECIFIED 03/22/2019 MOSES PARKER MD Ot E11. 9 TYPE 2 DIABETES MELLITUS WITHOUT COMPLIC 03/22/2019 MOSES PARKER MD Ot F17.290 NICOTINE DEPENDENCE, OTHER TOBACCO PRODU 03/22/2019 MOSES PARKER MD Ot F32. 9 MAJOR DEPRESSIVE DISORDER, SINGLE EPISOD 03/22/2019 MOSES PARKER MD A Ot F41. 9 ANXIETY DISORDER, UNSPECIFIED 03/22/2019 MOSES PARKER MD Ot I10 ESSENTIAL (PRIMARY) HYPERTENSION 03/22/2019 MOSES PARKER MD Ot I21. 9 ACUTE MYOCARDIAL INFARCTION, UNSPECIFIED 03/22/2019 MOSES PARKER MD Ot I47. 2 VENTRICULAR TACHYCARDIA 03/22/2019 MOSES PARKER MD Ot J44. 9 CHRONIC OBSTRUCTIVE PULMONARY DISEASE, U 03/22/2019 MOSES PARKER MD, Ot R07. 9 CHEST PAIN, UNSPECIFIED 03/22/2019 MOSES PARKER MD Ot Z79. 01 LONG-TERM (CURRENT) USE OF ANTICOAGULANT 03/22/2019 MOSES PARKER MD Ot Z79. 51 ESTATE PLANNING DIRECTOR (CURRENT) USE OF INHALED STERO 03/22/2019 MOSES PARKER MD A Ot Z79. 82 LONG-TERM (CURRENT) USE OF ASPIRIN 03/22/2019 MOSES PARKER MD A Ot Z79. 84 LONG-TERM (CURRENT) USE OF ORAL HYPOGLYC 03/22/2019 MOSES PARKER MD A Ot Z88. 5 ALLERGY STATUS TO NARCOTIC AGENT STATUS 03/22/2019 MOSES PARKER MD A Ot Z88. 8 ALLERGY STATUS TO OTH DRUG/MEDS/BIOL SUB 03/22/2019 MOSES PARKER MD A Ot Z91.041 RADIOGRAPHIC DYE ALLERGY STATUS 03/23/2019 MOSES PARKER MD A Ot E03. 9 HYPOTHYROIDISM, UNSPECIFIED 03/23/2019 MOSES PARKER MD A Ot E11. 9 TYPE 2 DIABETES MELLITUS WITHOUT COMPLIC 03/23/2019 MOSES PARKER MD A Ot F17.290 NICOTINE DEPENDENCE, OTHER TOBACCO PRODU 03/23/2019 MOSES PARKER MD A Ot F32. 9 MAJOR DEPRESSIVE DISORDER, SINGLE EPISOD 03/23/2019 MOSES PARKER MD A Ot F41. 9 ANXIETY DISORDER, UNSPECIFIED 03/23/2019 MOSES PARKER MD Ot I10 ESSENTIAL (PRIMARY) HYPERTENSION 03/23/2019 MOSES PARKER MD A Ot I21. 9 ACUTE MYOCARDIAL INFARCTION, UNSPECIFIED 03/23/2019 MOSES PARKER MD A Ot I47. 2 VENTRICULAR TACHYCARDIA 03/23/2019 MOSES PARKER MD A Ot J44. 9 CHRONIC OBSTRUCTIVE PULMONARY DISEASE, U 03/23/2019 MOSES PARKER MD A Ot R07. 9 CHEST PAIN, UNSPECIFIED 03/23/2019 MOSES PARKER MD A Ot Z79. 01 ESTATE PLANNING DIRECTOR (CURRENT) USE OF ANTICOAGULANT 03/23/2019 MOSES PARKER MD Ot Z79. 51 ESTATE PLANNING DIRECTOR (CURRENT) USE OF INHALED STERO 03/23/2019 MOSES PARKER MD A Ot Z79. 82 LONG-TERM (CURRENT) USE OF ASPIRIN 03/23/2019 MOSES PARKER MD A Ot Z79. 84 ESTATE PLANNING DIRECTOR (CURRENT) USE OF ORAL HYPOGLYC 03/23/2019 MOSES PARKER MD A Ot Z88. 5 ALLERGY STATUS TO NARCOTIC AGENT STATUS 03/23/2019 MOSES PARKER MD A Ot Z88. 8 ALLERGY STATUS TO OTH DRUG/MEDS/BIOL SUB 03/23/2019 MOSES PARKER MD Ot Z91.041 RADIOGRAPHIC DYE ALLERGY STATUS 03/23/2019 MOSES PARKER MD Ot E03. 9 HYPOTHYROIDISM, UNSPECIFIED 03/23/2019 MOSES PARKER MD Ot E11. 9 TYPE 2 DIABETES MELLITUS WITHOUT COMPLIC 03/23/2019 MOSES PARKER MD Ot F32. 9 MAJOR DEPRESSIVE DISORDER, SINGLE EPISOD 03/23/2019 MOSES PAREKR MD Ot F41. 9 ANXIETY DISORDER, UNSPECIFIED 03/23/2019 MOSES PARKER MD Ot I10 ESSENTIAL (PRIMARY) HYPERTENSION 03/23/2019 MOSES PARKER MD Ot I21. 3 ST ELEVATION (STEMI) MYOCARDIAL INFARCTI 03/23/2019 MOSES PARKER MD Ot I25. 10 ATHSCL HEART DISEASE OF [place] CORONARY 03/23/2019 MOSES PARKER MD, Ot J44. 9 CHRONIC OBSTRUCTIVE PULMONARY DISEASE, U 03/23/2019 MOSES PARKER MD Ot J96. 90 RESPIRATORY FAILURE, UNSP, UNSP W HYPOXI 03/23/2019 MOSES PARKER MD Ot R06. 89 OTHER ABNORMALITIES OF BREATHING 03/23/2019 MOSES PARKER MD Ot Z77. 22 CNTCT W AND EXPSR TO ENVIRON TOBACCO SMO 03/23/2019 MOSES PARKER MD Ot Z79. 01 ESTATE PLANNING DIRECTOR (CURRENT) USE OF ANTICOAGULANT 03/23/2019 MOSES PARKER MD Ot Z79. 51 ESTATE PLANNING DIRECTOR (CURRENT) USE OF INHALED STERO 03/23/2019 MOSES PARKER MD Ot Z79. 52 ESTATE PLANNING DIRECTOR (CURRENT) USE OF SYSTEMIC STER 03/23/2019 MOSES PARKER MD Ot Z79. 82 ESTATE PLANNING DIRECTOR (CURRENT) USE OF ASPIRIN 03/23/2019 MOSES PARKER MD Ot Z79. 84 LONG-TERM (CURRENT) USE OF ORAL HYPOGLYC 03/23/2019 MOSES PARKER MD Ot Z88. 5 ALLERGY STATUS TO NARCOTIC AGENT STATUS 03/23/2019 MOSES PARKER MD Ot Z88. 8 ALLERGY STATUS TO OTH DRUG/MEDS/BIOL SUB 03/23/2019 MOSES PARKER MD Ot Z89.511 ACQUIRED ABSENCE OF RIGHT LEG BELOW KNEE 03/23/2019 MOSES PARKER MD Ot Z90. 49 ACQUIRED ABSENCE OF OTHER SPECIFIED PART 03/23/2019 MOSES PARKER MD Ot Z91.041 RADIOGRAPHIC DYE ALLERGY STATUS 03/23/2019 MOSES PARKER MD Ot Z95. 0 PRESENCE OF CARDIAC PACEMAKER 03/23/2019 MOSES PARKER MD Ot E03. 9 HYPOTHYROIDISM, UNSPECIFIED 03/23/2019 MOSES PARKER MD Ot E11. 9 TYPE 2 DIABETES MELLITUS WITHOUT COMPLIC 03/23/2019 MOSES PARKER MD Ot F17.290 NICOTINE DEPENDENCE, OTHER TOBACCO PRODU 03/23/2019 MOSES PARKER MD Ot F32. 9 MAJOR DEPRESSIVE DISORDER, SINGLE EPISOD 03/23/2019 MOSES PARKER MD A Ot F41. 9 ANXIETY DISORDER, UNSPECIFIED 03/23/2019 MOSES PARKER MD Ot I10 ESSENTIAL (PRIMARY) HYPERTENSION 03/23/2019 MOSES PARKER MD, Ot I21. 9 ACUTE MYOCARDIAL INFARCTION, UNSPECIFIED 03/23/2019 MOSES PARKER MD Ot I47. 2 VENTRICULAR TACHYCARDIA 03/23/2019 MOSES PARKER MD, Ot J44. 9 CHRONIC OBSTRUCTIVE PULMONARY DISEASE, U 03/23/2019 MOSES PARKER MD Ot R07. 9 CHEST PAIN, UNSPECIFIED 03/23/2019 MOSES PARKER MD Ot Z79. 01 ESTATE PLANNING DIRECTOR (CURRENT) USE OF ANTICOAGULANT 03/23/2019 MOSES PARKER MD Ot Z79. 51 ESTATE PLANNING DIRECTOR (CURRENT) USE OF INHALED STERO 03/23/2019 MOSES PARKER MD Ot Z79. 82 LONG-TERM (CURRENT) USE OF ASPIRIN 03/23/2019 MOSES PARKER MD Ot Z79. 84 LONG-TERM (CURRENT) USE OF ORAL HYPOGLYC 03/23/2019 MOSES PARKER MD Ot Z88. 5 ALLERGY STATUS TO NARCOTIC AGENT STATUS 03/23/2019 MOSES PARKER MD Ot Z88. 8 ALLERGY STATUS TO OTH DRUG/MEDS/BIOL SUB 03/23/2019 MOSES PARKER MD Ot Z91.041 RADIOGRAPHIC DYE ALLERGY STATUS 04/05/2019 Z95.810 Pr esence of automatic (implantable) cardiac defibrillator 04/05/2019 Z95.9 Pres ence of cardiac and vascular implant and graft, unspecified 04/10/2019 I47.2 Vent ricular tachycardia 04/10/2019 I47.2 Vent ricular tachycardia 04/10/2019 I47.2 Vent ricular tachycardia 04/20/2019 DOLORES DILLARD [id number] Follow-up Procedures Code Description Performed By Per formed On [id number] CT CHEST WO CONTRAST 07/11/[address] PHYSIOTHERAPY VEST (DME) 08/05/2018 ECG1 ECG 08/05/2018 EIJ7287 CB C AND DIFF (MANUAL DIFF IF NECESSARY) 08/05/2018 OKL1738 CO MPREHENSIVE METABOLIC PANEL 08/05/2018 ZLN5240 NT PROBNP 08/05/2018 OQT7839 CA OTHROMBIN TIME/INR 08/05/2018 SXD5752 TR OPONIN 08/05/2018 JYV1177 XR CHEST SINGLE VIEW FRONTAL 08/05/2018 CAR75 ADILENE TE ICD MONITORING 09/01/2018 FJC057 CON SULT TO CARE PROGRESSION 09/17/2018 NUP7145 GL UCOSE POC 09/17/2018 ADT1 ADMIT TO INPATIENT 09/17/2018 COD2 FULL CODE 09/17/2018 DIET24 DIET 09/17/2018 QRQ2389 LI PID PANEL 09/17/2018 IGR2808 TR OPONIN 09/17/2018 TYA986 BED REST STRICT 09/17/2018 UPB033 NOT CHASE PHYSICIAN 09/17/2018 JOB177 PRO VIDER COMMUNICATION ORDER 09/17/2018 KMR546 TEL EMETRY MONITORING - CLASS I 09/17/2018 HIJ503 INT KOURTNEY AND OUTPUT 09/17/2018 GND905 VIT AL SIGNS 09/17/2018 MUA129 TOB ACCO CESSATION EDUCATION 09/17/2018 YMB535 PRIYANKA CE SEQUENTIAL COMPRESSION DEVICE 09/17/2018 BEM202 JEAN NTAIN SEQUENTIAL COMPRESSION DEVICE 09/17/2018 RT51 OXYGEN 09/17/2018 FAI3375 CO MPLETE BLOOD COUNT 09/17/2018 ALJ9227 CO MPREHENSIVE METABOLIC PANEL 09/17/2018 UZN6350 MA GNESIUM 09/17/2018 WSP1473 TR OPONIN 09/17/2018 SNA4975 CL OTTING SCREEN 09/17/2018 ECG1 ECG 09/17/2018 BOG1565 CV MPI PET 09/17/2018 CAR06 CARD IAC DEVICE CHECK 09/17/2018 DTN1915 TR OPONIN 09/17/2018 QXO2144 GL UCOSE POC 09/17/2018 RWR357 NOT CHASE PHYSICIAN 09/17/2018 OZW026 MARTY SING COMMUNICATION 09/17/2018 ZIC261 GLU COSE POC 09/17/2018 EQ6 HEATING PAD 09/17/2018 QTW2919 GL UCOSE POC 09/17/2018 YTG7753 LI PID PANEL 09/17/2018 YCR7835 TR OPONIN 09/17/2018 NPM799 GLU COSE POC 09/18/2018 OPG064 DANIELLE LY WEIGHTS 09/18/2018 DUD3387 GL UCOSE POC 09/18/2018 MTO6407 GL UCOSE POC 09/18/2018 UNV5417 GL UCOSE POC 09/18/2018 ZKL8820 GL UCOSE POC 09/18/2018 HZO501 GLU COSE POC 09/19/2018 FQX7070 GL UCOSE POC 09/19/2018 QZC5951 XR CHEST OUTSIDE IMAGES FOR PACS 09/19/2018 ADT1 ADMIT TO INPATIENT 09/19/2018 TNO478 IP CONSULT TO NEUROLOGY 09/19/2018 MAC8285 CV MPI PET 09/19/2018 UYY6466 CR EATINE KINASE 09/19/2018 HDP5662 CV MPI PET 09/19/2018 YZL9585 GL UCOSE POC 09/19/2018 JVV4275 CR EATINE KINASE 09/19/2018 SYW5555 BA SIC METABOLIC PANEL 09/19/2018 DIET41 DIET NPO 09/19/2018 IVT3 INSER T PERIPHERAL IV 09/19/2018 TWY4918 NU RSING: HOLD MEDICATION DOSE(S) ON MAR 09/19/2018 WMM529 MARTY SING COMMUNICATION 09/19/2018 ZQJ689 HEI GHT AND WEIGHT 09/19/2018 RTW200 SKI N PREP 09/19/2018 ZYL357 KELLEY CHASE INFORMED CONSENT 09/19/2018 ALZ791 DIS CONTINUE HEPARIN 1 HOUR PRIOR TO PROCEDURE 09/19/[address] CHEST WO CONTRAST 09/19/2018 QDT3756 BA SIC METABOLIC PANEL 09/19/2018 WPN1652 CB C AND DIFF (MANUAL DIFF IF NECESSARY) 09/19/2018 VGA9547 CA OTHROMBIN TIME/INR 09/19/2018 VGB4884 GL UCOSE POC 09/19/2018 JSD4685 CB C AND DIFF (MANUAL DIFF IF NECESSARY) 09/19/2018 EZO9387 GL UCOSE POC 09/19/2018 QKD811 GLU COSE POC 09/20/2018 AGQ3589 CR EATININE URINE RANDOM QUANT 09/20/2018 ALD3047 SO DIUM URINE RANDOM QUANT 09/20/2018 BIB4755 UR EA NITROGEN URINE RANDOM QUANT 09/20/2018 MZJ4718 UR INALYSIS REFLEX 09/20/2018 DIET24 DIET 09/20/2018 CDF4862 GL UCOSE POC 09/20/[address] CHEST WO CONTRAST 09/20/2018 ITM6733 CR EATININE URINE RANDOM QUANT 09/20/2018 TEQ6772 SO DIUM URINE RANDOM QUANT 09/20/2018 JLA7191 UR EA NITROGEN URINE RANDOM QUANT 09/20/2018 PSW0811 UR INALYSIS REFLEX 09/20/2018 BYZ2292 BA SIC METABOLIC PANEL 09/20/2018 FXV5074 CB C AND DIFF (MANUAL DIFF IF NECESSARY) 09/20/2018 YRZ0874 GL UCOSE POC 09/20/2018 CON33 CONS ULT - VASCULAR ACCESS TEAM 09/20/2018 BBL6515 GL UCOSE POC 09/20/2018 WEN9719 GL UCOSE POC 09/20/2018 DIK175 GLU COSE POC 09/21/2018 AUF8337 GL UCOSE POC 09/21/2018 CNO2564 GL UCOSE POC 09/21/2018 CON33 CONS ULT - VASCULAR ACCESS TEAM 09/21/2018 TOF2373 BA SIC METABOLIC PANEL 09/21/2018 QAK4287 BA SIC METABOLIC PANEL 09/21/2018 OT1 OT PRECIOUS L AND TREAT 09/21/2018 PT4 PT PRECIOUS L AND TREAT 09/21/2018 LNZ9948 BA SIC METABOLIC PANEL 09/21/2018 CEL9648 BA SIC METABOLIC PANEL 09/21/[address] ATELET 09/21/2018 NURHEPP HE DULCE INFUSION INSTRUCTIONS 09/21/2018 OSO9037 GL UCOSE POC 09/21/2018 WHF858 IP CONSULT TO PHARMACY 09/21/2018 LFJ9652 BA SIC METABOLIC PANEL 09/21/2018 LMK4502 GL UCOSE POC 09/21/2018 DIET41 DIET NPO 09/21/2018 GFB799 GLU COSE POC 09/22/2018 LWB7750 BA SIC METABOLIC PANEL 09/22/2018 FRH2955 BA SIC METABOLIC PANEL 09/22/2018 AWD4176 BA SIC METABOLIC PANEL 09/22/2018 MMA4848 GL UCOSE POC 09/22/2018 UNW6906 BA SIC METABOLIC PANEL 09/22/2018 BBR174 IP CONSULT TO NEPHROLOGY 09/22/2018 ECG1 ECG 09/22/[address] ATELET 09/22/2018 NURHEPP HE DULCE INFUSION INSTRUCTIONS 09/22/2018 OKU0758 CO MPLETE BLOOD COUNT 09/22/2018 DIET24 DIET 09/22/2018 EJZ5526 GL UCOSE POC 09/22/2018 CATH48 KATHARINE E REQUEST BICYCLE ASSEMBLER 09/22/2018 IVT3 INSER T PERIPHERAL IV 09/22/2018 XIZ7522 CA OTHROMBIN TIME/INR 09/22/2018 HJO7038 NU RSING: HOLD MEDICATION DOSE(S) ON 09/22/2018 MCO975 MARTY SING COMMUNICATION 09/22/2018 PRX392 HEI GHT AND WEIGHT 09/22/2018 CMW192 SKI N PREP 09/22/2018 FAO386 KELLEY CHASE INFORMED CONSENT 09/22/2018 AIP191 DIS CONTINUE HEPARIN 1 HOUR PRIOR TO PROCEDURE 09/22/2018 GRO595 MARTY SING COMMUNICATION - DO NOT USE IN ORDER SETS 09/22/2018 UBF8044 BA SIC METABOLIC PANEL 09/22/[address] ATELET 09/22/2018 CATH01 CAR DIAC CATHETERIZATION 09/22/2018 DXX7135 GL UCOSE POC 09/22/2018 TKO5557 HE DULCE ANTI FACTOR XA, UNFRACTIONATED HEPARIN 09/22/2018 PQG0559 HE DULCE ANTI FACTOR XA, UNFRACTIONATED HEPARIN 09/22/2018 FNA7774 APTT 09/22/2018 ESL3020 GL UCOSE POC 09/22/2018 ZDR0800 HE DULCE ANTI FACTOR XA, UNFRACTIONATED HEPARIN 09/22/2018 BDO645 GLU COSE POC 09/23/2018 YYJ001 MARTY SING COMMUNICATION - DO NOT USE IN ORDER SETS 09/23/2018 QZJ8526 BA SIC METABOLIC PANEL 09/23/2018 UZH8862 CO MPLETE BLOOD COUNT 09/23/2018 GAV1600 HE DULCE ANTI FACTOR XA, UNFRACTIONATED HEPARIN 09/23/2018 DJV0179 CA OTHROMBIN TIME/INR 09/23/2018 WXU6587 APTT 09/23/2018 ZYQ8214 BA SIC METABOLIC PANEL 09/23/2018 DIET41 DIET NPO 09/23/2018 UWM5728 CO MPLETE BLOOD COUNT 09/23/2018 UOL5754 APTT 09/23/2018 ABM4265 GL UCOSE POC 09/23/2018 KDF5881 APTT 09/23/2018 BHU5654 HE DULCE ANTI FACTOR XA, UNFRACTIONATED HEPARIN 09/23/2018 CATH01 CAR DIAC CATHETERIZATION 09/23/2018 CATH01 CAR DIAC CATHETERIZATION 09/23/2018 COD2 FULL CODE 09/23/2018 SAD114 MARTY SING COMMUNICATION 09/23/2018 AVB480 MARTY SING COMMUNICATION 09/23/2018 FNL438 POS T PROCEDURE SITE ASSESSMENT 09/23/2018 PPB378 VIT AL SIGNS 09/23/2018 WRH172 ANNELIESE QUENT VITAL SIGNS 09/23/2018 BPR716 ANNELIESE QUENT ASSESSMENT 09/23/2018 JLZ757 GLU COSE POC 09/23/2018 RT33 PULSE OXIMETRY, CONTINUOUS 09/23/2018 RT51 OXYGEN 09/23/2018 DIET24 DIET 09/23/2018 AJL2178 GL UCOSE POC 09/23/[address] ATELET 09/23/2018 EGC4581 HE DULCE ANTI FACTOR XA, UNFRACTIONATED HEPARIN 09/23/2018 HXF4856 GL UCOSE POC 09/23/2018 SDZ9384 GL UCOSE POC 09/23/2018 OBY378 GLU COSE POC 09/24/2018 AZG500 DANIELLE LY WEIGHTS 09/24/2018 WCS1646 BA SIC METABOLIC PANEL 09/24/2018 MJO6719 CO MPLETE BLOOD COUNT 09/24/2018 BHG3425 GL UCOSE POC 09/24/2018 FPE4477 BA SIC METABOLIC PANEL 09/24/2018 IVE7504 CO MPLETE BLOOD COUNT 09/24/2018 ADT8 DISCH ARGE PATIENT 09/24/2018 DIET24 DIET 09/24/2018 ADT8 DISCH ARGE PATIENT 09/24/[address] ATELET 09/24/2018 IPQ2159 GL UCOSE POC 09/24/2018 POC4 POCT GLYCOSYLATED HEMOGLOBIN (HGB A1C) 10/12/2018 IMM90 FLU VACCINE GREATER THAN OR EQUAL TO 65YO PRESERVATIVE FREE TRIVALENT IM 10/12/2018 IMM90 FLU VACCINE GREATER THAN OR EQUAL TO 65YO PRESERVATIVE FREE TRIVALENT IM 10/12/2018 CAR75 ADILENE TE ICD MONITORING 10/16/2018 FGC8913 BA SIC METABOLIC PANEL 11/18/2018 CAR63 ICD INTERROGATION 11/18/2018 CAR75 ADILENE TE ICD MONITORING 12/04/2018 CAR75 ADILENE TE ICD MONITORING 01/06/2019 POC4 POCT GLYCOSYLATED HEMOGLOBIN (HGB A1C) 01/18/2019 ECG1 ECG 01/26/2019 ADT1 ADMIT TO INPATIENT 01/26/2019 ECG1 ECG 01/26/2019 NTK6702 GL UCOSE POC 01/26/2019 COD2 FULL CODE 01/26/2019 HGH831 DANIELLE LY WEIGHTS 01/26/2019 RFI806 SOHAM SON FOR NO VTE PROPHYLAXIS - PHARMACOLOGICAL 01/26/2019 DPC760 SOHAM SON FOR NO VTE PROPHYLAXIS - MECHANICAL 01/26/2019 DIET24 DIET 01/26/2019 MYQ7108 XR CHEST 2 VIEWS (PA AND LATERAL) 01/26/2019 WZF1373 TR OPONIN 01/26/2019 IOQ419 ACT IVITY TOLERATED 01/26/2019 CMX142 NOT CHASE PHYSICIAN 01/26/2019 LDZ010 MARTY SING COMMUNICATION 01/26/2019 QDF738 VIT AL SIGNS 01/26/2019 EFU408 STR ICT INTAKE AND OUTPUT 01/26/2019 PEX081 TEL EMETRY MONITORING - CLASS II 01/26/2019 WJQ338 GLU COSE POC 01/26/2019 CAR06 CARD IAC DEVICE CHECK 01/26/2019 JCH8898 BA SIC METABOLIC PANEL 01/26/2019 LNK0997 CB C AND DIFF (MANUAL DIFF IF NECESSARY) 01/26/2019 ZBI8473 C- REACTIVE PROTEIN 01/26/2019 WGG5954 ER YTHROCYTE SEDIMENTATION RATE 01/26/2019 IEI8862 MA GNESIUM 01/26/2019 TAA5968 NT PROBNP 01/26/2019 XVE8418 TH YROID CASCADE 01/26/2019 XCU4803 TR OPONIN 01/26/[address]XR7204 [address] OTTING SCREEN 01/26/2019 BFO333 CON SULT TO CARE PROGRESSION 01/26/2019 OZH2559 TR OPONIN 01/26/2019 DDF5723 GL UCOSE POC 01/26/2019 CON33 CONS ULT - VASCULAR ACCESS TEAM 01/26/2019 OQT8374 XR CHEST 2 VIEWS (PA AND LATERAL) 01/26/2019 CON54 IP C ONSULT TO PULMONOLOGY 01/26/2019 RLT8053 GL UCOSE POC 01/26/2019 KQF1905 CA OCALCITONIN 01/26/2019 MSZ5853 TR OPONIN 01/26/2019 LVN7349 RE SPIRATORY PANEL BY PCR 01/26/2019 CHW7541 CU LTURE, SPUTUM WITH GRAM STAIN 01/26/2019 VAT6744 RE SPIRATORY PANEL BY PCR 01/26/2019 JZK9888 TO XICOLOGY SCREENING PANEL 01/26/2019 XOS3061 LE GIONELLA URINE ANTIGEN 01/26/[address] REP PNEUMONIAE URINE ANTIGEN 01/26/2019 UNO1556 OX YCODONE/OXYMORP CONFIRMATION 01/26/2019 VKJ6569 OP IATES CONFIRMATION, U 01/26/2019 ECH25 ECHO COMPLETE WITH DOPPLER AND COLOR FLOW 01/26/2019 HEU3162 GL UCOSE POC 01/26/2019 GUA1886 GL UCOSE POC 01/26/2019 ROB894 GLU COSE POC 01/27/2019 VZS7752 GL UCOSE POC 01/27/2019 RT51 OXYGEN 01/27/2019 RIQ9066 GL UCOSE POC 01/27/2019 EOZ5010 BA SIC METABOLIC PANEL 01/27/2019 MOA7128 BA SIC METABOLIC PANEL 01/27/2019 LGQ2643 GL UCOSE POC 01/27/2019 EKE954 GLU COSE POC 01/28/2019 QXX462 GLU COSE POC 01/28/2019 NAH9945 GL UCOSE POC 01/28/2019 QKO895 TEL EMETRY MONITORING - CLASS II 01/28/2019 FQL0892 BA SIC METABOLIC PANEL 01/28/2019 QIK1643 GL UCOSE POC 01/28/2019 ZJC1682 GL UCOSE POC 01/28/2019 EFH7759 NT PROBNP 01/28/2019 KTR1513 BA SIC METABOLIC PANEL 01/28/2019 AWA4680 GL UCOSE POC 01/28/2019 MNW6892 GL UCOSE POC 01/28/2019 PQY369 GLU COSE POC 01/29/2019 UGQ8026 GL UCOSE POC 01/29/2019 BDO3710 BA SIC METABOLIC PANEL 01/29/2019 WBH2866 NT PROBNP 01/29/2019 FLG2834 GL UCOSE POC 01/29/2019 AXY8796 GL UCOSE POC 01/29/2019 JQG9942 BA SIC METABOLIC PANEL 01/29/2019 ANV6513 GL UCOSE POC 01/29/2019 EVN034 GLU COSE POC 01/30/2019 LPT6766 BA SIC METABOLIC PANEL 01/30/2019 NHT2969 GL UCOSE POC 01/30/2019 DIET24 DIET 01/30/2019 PSW725 ACT IVITY TOLERATED 01/30/2019 BRI536 DIS CHARGE INSTRUCTIONS 01/30/2019 ADT8 DISCH ARGE PATIENT 01/30/2019 IVT10 DISC ONTINUE IV 01/30/2019 AXL1104 GL UCOSE POC 01/30/2019 CAR75 ADILENE TE ICD MONITORING 02/19/2019 ADT1 ADMIT TO INPATIENT 02/23/2019 COD2 FULL CODE 02/23/2019 ECG1 ECG 02/23/2019 MML8510 XR CHEST SINGLE VIEW FRONTAL 02/23/2019 IIK0072 CO MPLETE BLOOD COUNT 02/23/2019 QIU9009 CO MPREHENSIVE METABOLIC PANEL 02/23/2019 HPC6850 MA GNESIUM 02/23/2019 FIW8794 T4 FREE 02/23/2019 RIR9840 TH YROID STIMULATING HORMONE 02/23/2019 OSZ3938 TR OPONIN 02/23/2019 SEB176 NOT CHASE PHYSICIAN 02/23/2019 YPV981 PRO VIDER COMMUNICATION ORDER 02/23/2019 GTV683 TEL EMETRY MONITORING - CLASS I 02/23/2019 DAR403 DANIELLE LY WEIGHTS 02/23/2019 YNP602 INT KOURTNEY AND OUTPUT 02/23/2019 XDR935 VIT AL SIGNS 02/23/2019 GQT254 TOB ACCO CESSATION EDUCATION 02/23/2019 GXS702 PRIYANKA CE SEQUENTIAL COMPRESSION DEVICE 02/23/2019 PJR018 JEAN NTAIN SEQUENTIAL COMPRESSION DEVICE 02/23/2019 RT51 OXYGEN 02/23/2019 CAR06 CARD IAC DEVICE CHECK 02/23/2019 CON66 IP C ONSULT TO ELECTROPHYSIOLOGY 02/23/[address] ATELET 02/23/2019 NURHEPP HE DULCE INFUSION INSTRUCTIONS W/O BOLUS 02/23/2019 AKL1507 CO MPLETE BLOOD COUNT 02/23/2019 GBB1172 CO MPREHENSIVE METABOLIC PANEL 02/23/2019 YAR5346 SCOTTY GNESIUM 02/23/2019 SLS0655 T4 FREE 02/23/2019 TNG1078 TH YROID STIMULATING HORMONE 02/23/2019 VME3385 TR OPONIN 02/23/2019 JQA2385 XR CHEST SINGLE VIEW FRONTAL 02/23/2019 ECG1 ECG 02/23/2019 CON33 CONS ULT - VASCULAR ACCESS TEAM 02/23/2019 HKR077 NOT CHASE PHYSICIAN 02/23/2019 SMB640 MARTY SING COMMUNICATION 02/23/2019 XBD200 GLU COSE POC 02/23/2019 MCH742 GLU COSE POC 02/23/2019 OVU1854 GL UCOSE POC 02/23/2019 IBX3780 TR OPONIN 02/23/2019 CON33 CONS ULT - VASCULAR ACCESS TEAM 02/23/2019 CON33 CONS ULT - VASCULAR ACCESS TEAM 02/23/2019 DIET24 DIET 02/23/2019 ENV284 MARTY SING COMMUNICATION 02/23/2019 LXQ5664 XR CHEST SINGLE VIEW FRONTAL 02/23/2019 CJL6819 TR OPONIN 02/23/2019 CATH48 KATHARINE E REQUEST BICYCLE ASSEMBLER 02/23/2019 IVT3 INSER T PERIPHERAL IV 02/23/2019 FLA4003 CA OTHROMBIN TIME/INR 02/23/2019 IUZ0573 NU RSING: HOLD MEDICATION DOSE(S) ON 02/23/2019 GEW655 MARTY SING COMMUNICATION 02/23/2019 UJP028 HEI GHT AND WEIGHT 02/23/2019 GRA537 SKI N PREP 02/23/2019 BPW967 KELLEY CHSAE INFORMED CONSENT 02/23/2019 ABM060 DIS CONTINUE HEPARIN 1 HOUR PRIOR TO PROCEDURE 02/23/2019 HCQ9937 GL UCOSE POC 02/23/2019 DIET24 DIET 02/23/2019 DIET24 DIET 02/23/2019 JKM373 CON SULT TO CARE PROGRESSION 02/23/2019 CATH01 CAR DIAC CATHETERIZATION 02/23/2019 NBF721 OBT AIN MEDICAL RECORDS 02/23/2019 MCL0306 GL UCOSE POC 02/23/2019 CAR96 PACE MAKER OUTSIDE RECORD 02/23/2019 WUJ2272 GL UCOSE POC 02/23/2019 DIET41 DIET NPO 02/23/2019 GWN652 GLU COSE POC 02/24/[address] ATELET 02/24/2019 ERH6163 CA OTHROMBIN TIME/INR 02/24/2019 NBQ8510 GL UCOSE POC 02/24/2019 HHU1022 RE NAL PANEL 02/24/2019 FCB5790 GL UCOSE POC 02/24/2019 YPV4459 RE NAL PANEL 02/24/2019 TWL8769 BA SIC METABOLIC PANEL 02/24/2019 NFR561 IP CONSULT TO HEART FAILURE CARDIOLOGY 02/24/2019 DIET24 DIET 02/24/2019 CATH48 KATHARINE E REQUEST BICYCLE ASSEMBLER 02/24/2019 IVT3 INSER T PERIPHERAL IV 02/24/2019 RYR8199 CA OTHROMBIN TIME/INR 02/24/2019 TLB3521 NU RSING: HOLD MEDICATION DOSE(S) ON 02/24/2019 XOY980 MARTY SING COMMUNICATION 02/24/2019 NFM094 HEI GHT AND WEIGHT 02/24/2019 PIC341 SKI N PREP 02/24/2019 CWP052 KELLEY CHASE INFORMED CONSENT 02/24/2019 EGC257 DIS CONTINUE HEPARIN 1 HOUR PRIOR TO PROCEDURE 02/24/2019 CATH48 KATHARINE E 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 02/24/2019 CBO262 MARTY SING COMMUNICATION 02/24/2019 BFJ0597 GL UCOSE POC 02/24/2019 TEO9998 BA SIC METABOLIC PANEL 02/24/2019 GIB0934 HE PATIC FUNCTION PANEL 02/24/2019 CATH01 CAR DIAC CATHETERIZATION 02/24/2019 YRV8812 GL UCOSE POC 02/24/2019 MNN6517 GL UCOSE POC 02/24/2019 ATU505 GLU COSE POC 02/25/2019 RXS6014 HE PATIC FUNCTION PANEL 02/25/2019 LJD9955 CA OTHROMBIN TIME/INR 02/25/2019 ZVE3516 RE NAL PANEL 02/25/[address] ATELET 02/25/2019 DBH7072 RE NAL PANEL 02/25/2019 VHQ7121 GL UCOSE POC 02/25/2019 PMC1737 GL UCOSE POC 02/25/2019 ECG1 ECG 02/25/2019 ECG1 ECG 02/25/2019 CKA8978 GL UCOSE POC 02/25/2019 ZOT7399 GL UCOSE POC 02/25/2019 USY1291 GL UCOSE POC 02/25/2019 OSR926 GLU COSE POC 02/26/[address] ATELET 02/26/2019 EML5508 RE NAL PANEL 02/26/2019 WAL8508 RE NAL PANEL 02/26/2019 LJY5582 GL UCOSE POC 02/26/2019 VPY0332 GL UCOSE POC 02/26/2019 RVY340 MARTY SING COMMUNICATION 02/26/2019 FGY6850 GL UCOSE POC 02/26/2019 BGG2858 GL UCOSE POC 02/26/2019 DIET41 DIET NPO 02/26/2019 VRT4075 GL UCOSE POC 02/26/2019 ZIA827 GLU COSE POC 02/27/2019 KJM2854 GL UCOSE POC 02/27/2019 OCT7267 MA GNESIUM 02/27/2019 CCG0600 RE NAL PANEL 02/27/[address] ATELET 02/27/2019 HDX0855 RE NAL PANEL 02/27/2019 GBX8175 MA GNESIUM 02/27/2019 DSH6276 GL UCOSE POC 02/27/2019 GVD4346 BA SIC METABOLIC PANEL 02/27/2019 RZM3979 GL UCOSE POC 02/27/2019 CATH01 CAR DIAC CATHETERIZATION 02/27/2019 ADT19 THOMPSON SFER BACK TO BED 02/27/2019 COD2 FULL CODE 02/27/2019 CRR1 CARDI AC REHAB ORDER 02/27/2019 CATH01 CAR DIAC CATHETERIZATION 02/27/2019 DIET24 DIET 02/27/2019 CSB197 MARTY SING COMMUNICATION 02/27/2019 ROF881 POS T PROCEDURE SITE ASSESSMENT 02/27/2019 AXC612 VIT AL SIGNS 02/27/2019 NUR6 ACTIV ITY ORDER 02/27/2019 RAH941 ANNELIESE QUENT VITAL SIGNS 02/27/2019 VUD866 ANNELIESE QUENT ASSESSMENT 02/27/2019 ZRN098 TEL EMETRY MONITORING - CLASS II 02/27/2019 BAS052 GLU COSE POC 02/27/2019 RT33 PULSE OXIMETRY, CONTINUOUS 02/27/2019 RT51 OXYGEN 02/27/2019 KGV2146 BA SIC METABOLIC PANEL 02/27/2019 BCP5314 CO MPLETE BLOOD COUNT 02/27/2019 AIK528 MARTY SING COMMUNICATION 02/27/2019 OTO308 ECG -NURSING TO ORDER IF: 02/27/2019 OXQ4378 GL UCOSE POC 02/27/2019 EJM093 IP CONSULT TO HOSPICE AND PALLIATIVE MEDICINE 02/27/2019 OTV6325 MA GNESIUM 02/27/2019 IFC3407 FO ILYA CATHETER REMOVAL CRITERIA 02/27/2019 UKN074 FOL EY CATHETER - INSERT 02/27/2019 MZX535 CULLEN DDER SCANNING ALGORITHM 02/27/2019 ZZV0738 GL UCOSE POC 02/27/2019 WTR910 GLU COSE POC 02/28/2019 TGE118 DANIELLE LY WEIGHTS 02/28/2019 JUI9856 MA GNESIUM 02/28/[address] ATELET 02/28/2019 JIZ7555 RE NAL PANEL 02/28/2019 WAF5981 RE NAL PANEL 02/28/2019 TLW450 GLU COSE POC 02/28/2019 FUL1306 GL UCOSE POC 02/28/2019 IPK583 NOT CHASE PHYSICIAN 02/28/2019 RTP283 BET A BLOCKERS ALREADY ORDERED THIS ENCOUNTER 02/28/2019 CKA417 MED ICATION ALREADY ORDERED THIS ENCOUNTER 02/28/2019 BOY830 ALD OSTERONE ANTAGONIST ALREADY ORDERED THIS ENCOUNTER PT4 PT PRECIOUS L AND TREAT 02/28/2019 SBW5567 UR INALYSIS (INCLUDES MICROSCOPIC REVIEW, IF INDICATED) 02/28/2019 ZUM3584 GL UCOSE POC 02/28/2019 YYK0390 UR INALYSIS (INCLUDES MICROSCOPIC REVIEW, IF INDICATED) 02/28/2019 VTT7162 UR INALYSIS MICROSCOPIC ONLY 02/28/2019 QMJ9574 BA SIC METABOLIC PANEL 02/28/2019 PFA2065 MA GNESIUM 02/28/2019 OT1 OT PRECIOUS L AND TREAT 02/28/2019 EAX9622 BA SIC METABOLIC PANEL 02/28/2019 CUI7688 BA SIC METABOLIC PANEL 02/28/2019 JST8493 GL UCOSE POC 02/28/2019 FDT721 GLU COSE POC 03/01/[address] ATELET 03/01/2019 EDL7259 BA SIC METABOLIC PANEL 03/01/2019 GXB9570 BA SIC METABOLIC PANEL 03/01/2019 EGI5273 SCOTTY GNESIUM 03/01/2019 JPY7765 GL UCOSE POC 03/01/2019 DFA2885 XR CHEST 2 VIEWS (PA AND LATERAL) 03/01/2019 NCW0163 GL UCOSE POC 03/01/2019 FBV2317 GL UCOSE POC 03/01/2019 VVB5392 BA SIC METABOLIC PANEL 03/01/2019 TJS6336 BA SIC METABOLIC PANEL 03/01/2019 VIM5773 GL UCOSE POC 03/01/2019 TIB382 GLU COSE POC 03/02/2019 VST8158 BA SIC METABOLIC PANEL 03/02/2019 HYW3792 BA SIC METABOLIC PANEL 03/02/2019 ING9193 [address] ATELET 03/02/2019 [id number] GL UCOSE POC 03/02/2019 BDH1038 GL UCOSE POC 03/02/2019 ERI6862 GL UCOSE POC 03/02/2019 PQZ2231 BA SIC METABOLIC PANEL 03/02/2019 WPK7348 BA SIC METABOLIC PANEL 03/02/2019 SWC0255 GL UCOSE POC 03/02/2019 BAM200 GLU COSE POC 03/03/[address] ATELET 03/03/2019 BID2057 BA SIC METABOLIC PANEL 03/03/2019 GEM3424 BA SIC METABOLIC PANEL 03/03/2019 KBS4642 GL UCOSE POC 03/03/2019 DIET24 DIET 03/03/2019 GPE092 FOL LOW UP PRIMARY PHYSICIAN 03/03/2019 IJY290 DIS CHARGE INSTRUCTIONS 03/03/2019 OEK068 DIS CHARGE FOLLOW UP 03/03/2019 ADT8 DISCH ARGE PATIENT 03/03/2019 IVT10 DISC ONTINUE IV 03/03/2019 DLD379 CAR DIAC MONITORING 03/15/2019 LKF256 PUL SE OXIMETRY 03/15/2019 [id number] TR OPONIN 03/15/2019 ECG1 ECG 03/15/2019 ADT9 ED AD NELDA TO INPATIENT 03/16/2019 DIET24 DIET 03/16/2019 HEM4827 TR OPONIN 03/16/2019 JVO780 MARTY SING COMMUNICATION 03/16/2019 QKO929 TEL EMETRY MONITORING - CLASS II 03/16/2019 ADT1 ADMIT TO INPATIENT 03/16/2019 [id number] CO MPLETE BLOOD COUNT 03/16/2019 STF2675 CO MPREHENSIVE METABOLIC PANEL 03/16/2019 QAQ8553 FE RRITIN 03/16/2019 CTS6112 HE MOGLOBIN A1C 03/16/2019 QAM2959 IR ON/TRANSFERRIN 03/16/2019 PUF8315 LI PID PANEL 03/16/2019 IKZ8077 MA GNESIUM 03/16/2019 WDC3783 T4 FREE 03/16/2019 WOH8606 TH YROID STIMULATING HORMONE 03/16/2019 EOX0179 TO XICOLOGY SCREENING PANEL 03/16/2019 [id number] XR CHEST SINGLE VIEW FRONTAL 03/16/2019 COD2 FULL CODE 03/16/2019 DIET24 DIET 03/16/2019 HJU218 ACT IVITY TOLERATED 03/16/2019 MLS245 NOT CHASE PHYSICIAN 03/16/2019 QZQ100 TEL EMETRY MONITORING - CLASS I 03/16/2019 BEO689 DANIELLE LY WEIGHTS 03/16/2019 DEX915 VIT AL SIGNS 03/16/2019 SCB159 CON TINUOUS PULSE OXIMETRY 03/16/2019 KYX980 STR ICT INTAKE AND OUTPUT 03/16/2019 AJH475 CULLEN DDER SCANNING ALGORITHM 03/16/2019 PT4 PT PRECIOUS L AND TREAT 03/16/2019 CUU619 CON SULT TO CARE PROGRESSION 03/16/2019 HGM796 SOHAM SON FOR NO VTE PROPHYLAXIS - PHARMACOLOGICAL 03/16/2019 TAY545 SOHAM SON FOR NO VTE PROPHYLAXIS - MECHANICAL 03/16/2019 OT1 OT PRECIOUS L AND TREAT 03/16/2019 DIET24 DIET 03/16/2019 IHJ507 NOT CHASE PHYSICIAN 03/16/2019 GLW867 MARTY SING COMMUNICATION 03/16/2019 AXU795 GLU COSE POC 03/16/2019 CAR3520 GL UCOSE POC 03/16/2019 DIET41 DIET NPO 03/16/2019 CAR06 CARD IAC DEVICE CHECK 03/16/2019 ZFQ4638 TR OPONIN 03/16/2019 FFD289 DANIELLE LY WEIGHTS 03/16/2019 RBX958 STR ICT INTAKE AND OUTPUT 03/16/2019 KQZ813 CON TINUOUS PULSE OXIMETRY 03/16/2019 ECG1 ECG 03/16/2019 HWS6951 CO MPLETE BLOOD COUNT 03/16/2019 RLR6915 CO MPREHENSIVE METABOLIC PANEL 03/16/2019 DLT7360 FE RRITIN 03/16/2019 OLR6763 HE MOGLOBIN A1C 03/16/2019 HWS2903 IR ON/TRANSFERRIN 03/16/2019 UNC0802 LI PID PANEL 03/16/2019 JIJ6757 SCOTTY GNESIUM 03/16/2019 ZLS4545 T4 FREE 03/16/2019 DSI3500 TH YROID STIMULATING HORMONE 03/16/2019 MLF3261 TR OPONIN 03/16/2019 CON66 IP C ONSULT TO ELECTROPHYSIOLOGY 03/16/2019 KYH0040 BA SIC METABOLIC PANEL 03/16/2019 URC9922 SCOTTY GNESIUM 03/16/2019 CAR06 CARD IAC DEVICE CHECK 03/16/2019 ECG1 ECG 03/16/2019 JOS7482 TR OPONIN 03/16/2019 JJW8023 GL UCOSE POC 03/16/2019 JHS5718 TR OPONIN 03/16/2019 CON33 CONS ULT - VASCULAR ACCESS TEAM 03/16/2019 DIET24 DIET 03/16/2019 VLN4746 GL UCOSE POC 03/16/2019 DIET24 DIET 03/16/2019 DIET24 DIET 03/16/2019 FJS2566 GL UCOSE POC 03/16/2019 VOH336 GLU COSE POC 03/17/2019 LEH2973 BA SIC METABOLIC PANEL 03/17/2019 CIK1338 SCOTTY GNESIUM 03/17/2019 NGA5583 BA SIC METABOLIC PANEL 03/17/2019 VRW7069 SCOTTY GNESIUM 03/17/2019 HPD6954 GL UCOSE POC 03/17/2019 SJQ2899 GL UCOSE POC 03/17/2019 LFK5222 GL UCOSE POC 03/17/2019 OBL7463 GL UCOSE POC 03/17/2019 BSW654 GLU COSE POC 03/18/2019 JZX5122 BA SIC METABOLIC PANEL 03/18/2019 STI8189 SCOTTY GNESIUM 03/18/2019 ULL9634 BA SIC METABOLIC PANEL 03/18/2019 DAJ9006 SCOTTY GNESIUM 03/18/2019 SCL9148 GL UCOSE POC 03/18/2019 EDP5426 GL UCOSE POC 03/18/2019 ZTI3727 GL UCOSE POC 03/18/2019 TUQ9253 GL UCOSE POC 03/18/2019 KFR453 GLU COSE POC 03/19/2019 YRD1440 BA SIC METABOLIC PANEL 03/19/2019 RLE4740 MA GNESIUM 03/19/2019 ZIT3736 BA SIC METABOLIC PANEL 03/19/2019 RUT1237 SCOTTY GNESIUM 03/19/2019 DIET24 DIET 03/19/2019 PHU913 ACT IVITY TOLERATED 03/19/2019 IPS049 CAR E ORDER / INSTRUCTION 03/19/2019 QDS121 MARTY SING COMMUNICATION 03/19/2019 KVI484 REBECCA SURE WEIGHT 03/19/2019 WDN131 DIS CHARGE INSTRUCTIONS 03/19/2019 BOP045 T INSTRUCTIONS TO NURSING 03/19/2019 HRU266 PAT IENT MAY SHOWER 03/19/2019 YDQ1247 GL UCOSE POC 03/19/2019 CON66 IP C ONSULT TO ELECTROPHYSIOLOGY 03/19/2019 XTU4506 GL UCOSE POC 03/19/2019 UDT1266 GL UCOSE POC 03/19/2019 RT51 OXYGEN 03/19/2019 UAY9132 GL UCOSE POC 03/19/2019 QSC679 GLU COSE POC 03/20/2019 HTR7073 BA SIC METABOLIC PANEL 03/20/2019 QOC3152 MA GNESIUM 03/20/2019 HGV4796 BA SIC METABOLIC PANEL 03/20/2019 EXQ1274 SCOTTY GNESIUM 03/20/2019 KFM4208 GL UCOSE POC 03/20/2019 MQS7221 TR OPONIN 03/20/2019 WOV3102 GL UCOSE POC 03/20/2019 DYA5078 GL UCOSE POC 03/20/2019 TKW7235 GL UCOSE POC 03/20/2019 MRA430 GLU COSE POC 03/21/2019 PLE5722 BA SIC METABOLIC PANEL 03/21/2019 ROI4670 SCOTTY GNESIUM 03/21/2019 UQR1059 BA SIC METABOLIC PANEL 03/21/2019 RQR1411 SCOTTY GNESIUM 03/21/2019 LXA0346 GL UCOSE POC 03/21/2019 DIET24 DIET 03/21/2019 HVP904 ACT IVITY TOLERATED 03/21/2019 ZHB473 DIS CHARGE INSTRUCTIONS 03/21/2019 PVV760 PAT IENT MAY SHOWER 03/21/2019 GSE676 CAR E ORDER / INSTRUCTION 03/21/2019 JKS812 MARTY SING COMMUNICATION 03/21/2019 AEI037 REBECCA SURE WEIGHT 03/21/2019 JKV628 DIS CHARGE INSTRUCTIONS 03/21/2019 FKB383 T INSTRUCTIONS TO NURSING 03/21/2019 ADT8 DISCH ARGE PATIENT 03/21/2019 IVT10 DISC ONTINUE IV 03/21/2019 CAR75 ADILENE TE ICD MONITORING 04/05/2019 CAR54 ECG 04/10/2019 CAR54 ECG 04/10/2019 Results Test Result Range Complete blood count (CBC) with automate d white blood cell (WBC) differential - 03/31/18 22:32 Blood leukocytes automated count (number/volume) 11.3 10*3/uL 4.3-11.0 Blood erythrocytes automated count (number/volume) 4.90 10*6/uL 4.35-5.85 Venous blood hemoglobin measurement (mass/volume) 12.7 g/dL 11.5-16.0 Blood hematocrit (volume fraction) 41 % 35-52 Automated erythrocyte mean corpuscular volume 84 [ foz_us] 80-99 Automated erythrocyte mean corpuscular h emoglobin (mass per erythrocyte) 26 pg 25-34 Automated erythrocyte mean corpuscular h emoglobin concentration measurement (mass/volume) 31 g/dL 32-36 Automated erythrocyte distribution width ratio 15. 3 % 10.0- 14.5 Automated blood platelet count [...] 10*3 1.0-4.0 Blood monocytes automated count (number/volume) 0. 9 10*3 0.0-1.0 Automated eosinophil count 0.1 10*3/uL 0 .0-0.3 Automated blood basophil count (count/volume) 0.0 10*3/uL 0.0-0.1 Comprehensive metabolic panel - 03/31/18 23:30 Serum or plasma sodium measurement (moles/volume) 138 mmol/L 135-145 Serum or plasma potassium measurement (moles/volume) 4.0 mmol/L 3.6-5.0 Serum or plasma chloride measurement (moles/volume) 101 mmol/L 98-107 Carbon dioxide 22 mmol/L 21-32 Serum or plasma anion gap determination (moles/volume) 15 mmol/L 5-14 Serum or plasma urea nitrogen measurement (mass/volume ) 14 mg/dL 7-18 Serum or plasma creatinine measurement (mass/volume) 1.00 mg/dL 0.60-1.30 Serum or plasma urea nitrogen/creatinine mass ratio 14 NRG Serum or plasma creatinine measurement w ith calculation of estimated glomerular filtration rate > NRG Serum or plasma glucose measurement (mass/volume) 137 mg/dL 70-105 Serum or plasma calcium measurement (mass/volume) 9.2 mg/dL 8.5-10.1 Serum or plasma total bilirubin measurement (mass/volu me) 0.2 mg/dL 0.1-1.0 Serum or plasma alkaline phosphatase rebecca surement (enzymatic activity/volume) 125 U/L 40-136 Serum or plasma aspartate aminotransfera se measurement (enzymatic activity/volume) 12 U/L 5-34 Serum or plasma alanine aminotransferase measurement (enzymatic activity/volume) 10 U/L 0-55 Serum or plasma protein measurement (mass/volume) 6.4 g/dL 6.4-8.2 Serum or plasma albumin measurement (mass/volume) 3.8 g/dL 3.2-4.5 CALCIUM CORRECTED 9.4 mg/dL 8.5-10.1 Magnesium - 03/31/18 23:30 Magnesium 1.7 mg/dL 1.8-2.4 TROPONIN T - 03/31/18 23:30 TROPONIN T 16 % <=10 Serum or plasma lithium measurement (mol es/volume) - 03/31/18 23:30 BNP level 521.1 pg/mL <100.0 Complete urinalysis with reflex to cultu re - 04/01/18 00:00 Urine color determination YELLOW NRG Urine clarity determination CLEAR NR G Urine pH measurement by test strip 6.0 5-9 Specific gravity of urine by test strip 1.010 1.016-1.022 Urine protein assay by test strip, semi-quantitative NEGATIVE NEGATIVE Urine glucose detection by automated test strip NE GATIVE NEGATIVE Erythrocytes detection in urine sediment by light micr oscopy NEGATIVE NEGATIVE Urine ketones detection by automated test strip NE GATIVE NEGATIVE Urine nitrite detection by test strip NEGATIVE NEGATIVE Urine total bilirubin detection by test strip NEGA TIVE NEGATIVE Urine urobilinogen measurement by automated test strip (mass/volume) 0.2 mg/dL NORMAL Urine leukocyte esterase detection by dipstick NEG ATIVE NEGATIVE Automated urine sediment erythrocyte cou nt by microscopy (number/high power field) NONE NRG Automated urine sediment leukocyte count by microscopy (number/high power field) [HPF] NRG Bacteria detection in urine sediment by light microsco py NEGATIVE NRG Squamous epithelial cells detection in u rine sediment by light microscopy 0-2 NRG Crystals detection in urine sediment by light microsco py NONE NRG Casts detection in urine sediment by light microscopy NONE NRG Mucus detection in urine sediment by light microscopy MODERATE NRG Complete urinalysis with reflex to culture NO NRG Automated blood complete blood count (he mogram) panel - 04/21/18 23:40 Blood leukocytes automated count (number/volume) 9.1 10*3/uL 4.3-11.0 Blood erythrocytes automated count (number/volume) 5.11 10*6/uL 4.35-5.85 Venous blood hemoglobin measurement (mass/volume) 13.1 g/dL 11.5-16.0 Blood hematocrit (volume fraction) 42 % 35-52 Automated erythrocyte mean corpuscular volume 83 [ foz_us] 80-99 Automated erythrocyte mean corpuscular h emoglobin (mass per erythrocyte) 26 pg 25-34 Automated erythrocyte mean corpuscular h emoglobin concentration measurement (mass/volume) 31 g/dL 32-36 Automated erythrocyte distribution width ratio 15. 9 % 10.0- 14.5 Automated blood platelet count [...] 5-14 Serum or plasma urea nitrogen measurement (mass/volume ) 20 mg/dL 7-18 Serum or plasma creatinine measurement (mass/volume) 1.39 mg/dL 0.60-1.30 Serum or plasma urea nitrogen/creatinine mass ratio 14 NRG Serum or plasma creatinine measurement w ith calculation of estimated glomerular filtration rate 46 NRG Serum or plasma glucose measurement (mass/volume) 86 mg/dL 70-105 Serum or plasma calcium measurement (mass/volume) 10.1 mg/dL 8.5-10.1 Serum or plasma total bilirubin measurement (mass/volu me) 0.3 mg/dL 0.1-1.0 Serum or plasma alkaline phosphatase rebecca surement (enzymatic activity/volume) 106 U/L 40-136 Serum or plasma aspartate aminotransfera se measurement (enzymatic activity/volume) 13 U/L 5-34 Serum [...] PT panel in platelet poor plasma by coag ulation assay - 04/21/18 23:40 Prothrombin time (PT) in platelet poor plasma by coagu lation assay 14.4 s 12.2-14.7 INR in platelet poor plasma or blood by coagulation as say 1.1 0.8-1.4 Activated partial thromboplastin time (a PTT) in platelet poor plasma bycoagulation assay - 04/21/18 23:40 Activated partial thromboplastin time (a PTT) in platelet poor plasma bycoagulation assay 30 s 24-35 Complete blood count (CBC) with automate d white blood cell (WBC) differential - 05/30/18 14:55 Blood leukocytes automated count (number/volume) 6.6 10*3/uL 4.3-11.0 Blood erythrocytes automated count (number/volume) 4.51 10*6/uL 4.35-5.85 Venous blood hemoglobin measurement (mass/volume) 11.7 g/dL 11.5-16.0 Blood hematocrit (volume fraction) 37 % 35-52 Automated erythrocyte mean corpuscular volume 83 [ foz_us] 80-99 Automated erythrocyte mean corpuscular h emoglobin (mass per erythrocyte) 26 pg 25-34 Automated erythrocyte mean corpuscular h emoglobin concentration measurement (mass/volume) 31 g/dL 32-36 Automated erythrocyte distribution width ratio 14. 4 % 10.0- 14.5 Automated blood platelet count [...] 10*3 1.0-4.0 Blood monocytes automated count (number/volume) 0. 9 10*3 0.0-1.0 Automated eosinophil count 0.1 10*3/uL 0 .0-0.3 Automated blood basophil count (count/volume) 0.1 10*3/uL 0.0-0.1 PT panel in platelet poor plasma by coag ulation assay - 05/30/18 14:55 Prothrombin time (PT) in platelet poor plasma by coagu lation assay 15.0 s 12.2-14.7 INR in platelet poor plasma or blood by coagulation as say 1.1 0.8-1.4 Activated partial thromboplastin time (a PTT) in platelet poor plasma bycoagulation assay - 05/30/18 14:55 Activated partial thromboplastin time (a PTT) in platelet poor plasma bycoagulation assay 34 [...] 5-14 Serum or plasma urea nitrogen measurement (mass/volume ) 16 mg/dL 7-18 Serum or plasma creatinine measurement (mass/volume) 0.96 mg/dL 0.60-1.30 Serum or plasma urea nitrogen/creatinine mass ratio 17 NRG Serum or plasma creatinine measurement w ith calculation of estimated glomerular filtration rate > NRG Serum or plasma glucose measurement (mass/volume) 109 mg/dL 70-105 Serum or plasma calcium measurement (mass/volume) 10.1 mg/dL 8.5-10.1 Serum or plasma total bilirubin measurement (mass/volu me) 0.5 mg/dL 0.1-1.0 Serum or plasma alkaline phosphatase rebecca surement (enzymatic activity/volume) 153 U/L 40-136 Serum or plasma aspartate aminotransfera se measurement (enzymatic activity/volume) 15 U/L 5-34 Serum [...] 5-14 Serum or plasma urea nitrogen measurement (mass/volume ) 14 mg/dL 7-18 Serum or plasma creatinine measurement (mass/volume) 0.98 mg/dL 0.60-1.30 Serum or plasma urea nitrogen/creatinine mass ratio 14 NRG Serum or plasma creatinine measurement w ith calculation of estimated glomerular filtration rate > NRG Serum or plasma glucose measurement (mass/volume) 111 mg/dL 70-105 Serum or plasma calcium measurement (mass/volume) 9.6 mg/dL 8.5-10.1 Serum or plasma total bilirubin measurement (mass/volu me) 0.3 mg/dL 0.1-1.0 Serum or plasma alkaline phosphatase rebecca surement (enzymatic activity/volume) 157 U/L 40-136 Serum or plasma aspartate aminotransfera se measurement (enzymatic activity/volume) 38 U/L 5-34 Serum or plasma alanine aminotransferase measurement (enzymatic activity/volume) 12 U/L 0-55 Serum or plasma protein measurement (mass/volume) 6.9 g/dL 6.4-8.2 Serum or plasma albumin measurement (mass/volume) 4.3 g/dL 3.2-4.5 CALCIUM CORRECTED 9.4 mg/dL 8.5-10.1 PROBNP FS - 05/31/18 19:47 PROBNP FS 409.1 pg/mL <75.0 Complete blood count (CBC) with automate d white blood cell (WBC) differential - 06/21/18 10:03 Blood leukocytes automated count (number/volume) 9.1 10*3/uL 4.3-11.0 Blood erythrocytes automated count (number/volume) 4.26 10*6/uL 4.35-5.85 Venous blood hemoglobin measurement (mass/volume) 11.2 g/dL 11.5-16.0 Blood hematocrit (volume fraction) 37 % 35-52 Automated erythrocyte mean corpuscular volume 88 [ foz_us] 80-99 Automated erythrocyte mean corpuscular h emoglobin (mass per erythrocyte) 26 pg 25-34 Automated erythrocyte mean corpuscular h emoglobin concentration measurement (mass/volume) 30 g/dL 32-36 Automated erythrocyte distribution width ratio 14. 8 % 10.0- 14.5 Automated blood platelet count [...] 10*3 1.0-4.0 Blood monocytes automated count (number/volume) 0. 9 10*3 0.0-1.0 Automated eosinophil count 0.1 10*3/uL 0 .0-0.3 Automated blood basophil count (count/volume) 0.0 10*3/uL 0.0-0.1 Comprehensive metabolic panel - 06/21/18 10:03 Serum or plasma sodium measurement (moles/volume) 144 mmol/L 135-145 Serum or plasma potassium measurement (moles/volume) 3.8 mmol/L 3.6-5.0 Serum or plasma chloride measurement (moles/volume) 108 mmol/L 98-107 Carbon dioxide 24 mmol/L 21-32 Serum or plasma anion gap determination (moles/volume) 12 mmol/L 5-14 Serum or plasma urea nitrogen measurement (mass/volume ) 18 mg/dL 7-18 Serum or plasma creatinine measurement (mass/volume) 0.94 mg/dL 0.60-1.30 Serum or plasma urea nitrogen/creatinine mass ratio 19 NRG Serum or plasma creatinine measurement w ith calculation of estimated glomerular filtration rate > NRG Serum or plasma glucose measurement (mass/volume) 120 mg/dL 70-105 Serum or plasma calcium measurement (mass/volume) 9.2 mg/dL 8.5-10.1 Serum or plasma total bilirubin measurement (mass/volu me) 0.2 mg/dL 0.1-1.0 Serum or plasma alkaline phosphatase rebecca surement (enzymatic activity/volume) 142 U/L 40-136 Serum or plasma aspartate aminotransfera se measurement (enzymatic activity/volume) 11 U/L 5-34 Serum or plasma alanine aminotransferase measurement (enzymatic activity/volume) 10 U/L 0-55 Serum or plasma protein measurement (mass/volume) 6.3 g/dL 6.4-8.2 Serum or plasma albumin measurement (mass/volume) 3.8 g/dL 3.2-4.5 CALCIUM CORRECTED 9.4 mg/dL 8.5-10.1 TROPONIN T - 06/21/18 10:03 TROPONIN T 15 % <=10 PROBNP FS - 05/14/19 10:03 PROBNP FS 1282.0 pg/mL <75.0 THYROID STIMULATING HORMONE - 06/21/18 1 0:03 THYROID STIMULATING HORMONE 2.07 u[iU]/mL 0.35-4.94 Complete blood count (CBC) with automate d white blood cell (WBC) differential - 07/08/18 00:01 Blood leukocytes automated count (number/volume) 6.9 10*3/uL 4.3-11.0 Blood erythrocytes automated count (number/volume) 4.86 10*6/uL 4.35-5.85 Venous blood hemoglobin measurement (mass/volume) 12.3 g/dL 11.5-16.0 Blood hematocrit (volume fraction) 42 % 35-52 Automated erythrocyte mean corpuscular volume 86 [ foz_us] 80-99 Automated erythrocyte mean corpuscular h emoglobin (mass per erythrocyte) 25 pg 25-34 Automated erythrocyte mean corpuscular h emoglobin concentration measurement (mass/volume) 30 g/dL 32-36 Automated erythrocyte distribution width ratio 14. 6 % 10.0- 14.5 Automated blood platelet count [...] 10*3 1.0-4.0 Blood monocytes automated count (number/volume) 0. 2 10*3 0.0-1.0 Automated eosinophil count 0.0 10*3/uL 0 .0-0.3 Automated blood basophil count (count/volume) 0.0 10*3/uL [...] 5-14 Serum or plasma urea nitrogen measurement (mass/volume ) 16 mg/dL 7-18 Serum or plasma creatinine measurement (mass/volume) 1.18 mg/dL 0.60-1.30 Serum or plasma urea nitrogen/creatinine mass ratio 14 NRG Serum or plasma creatinine measurement w ith calculation of estimated glomerular filtration rate 56 NRG Serum or plasma glucose measurement (mass/volume) 212 mg/dL 70-105 Serum or plasma calcium measurement (mass/volume) 9.7 mg/dL 8.5-10.1 Serum or plasma total bilirubin measurement (mass/volu me) 0.3 mg/dL 0.1-1.0 Serum or plasma alkaline phosphatase rebecca surement (enzymatic activity/volume) 162 U/L 40-136 Serum or plasma aspartate aminotransfera se measurement (enzymatic activity/volume) 14 U/L 5-34 Serum or plasma alanine aminotransferase measurement (enzymatic activity/volume) 10 U/L 0-55 Serum or plasma protein measurement (mass/volume) 7.1 g/dL 6.4-8.2 Serum or plasma albumin measurement (mass/volume) 4.4 g/dL 3.2-4.5 CALCIUM CORRECTED 9.4 mg/dL 8.5-10.1 Magnesium - 07/08/18 00:01 Magnesium 1.7 mg/dL 1.8-2.4 Complete blood count (CBC) with automate d white blood cell (WBC) differential - 07/08/18 23:14 Blood leukocytes automated count (number/volume) 14.5 10*3/uL 4.3-11.0 Blood erythrocytes automated count (number/volume) 4.84 10*6/uL 4.35-5.85 Venous blood hemoglobin measurement (mass/volume) 12.8 g/dL 11.5-16.0 Blood hematocrit (volume fraction) 39 % 35-52 Automated erythrocyte mean corpuscular volume 81 [ foz_us] 80-99 Automated erythrocyte mean corpuscular h emoglobin (mass per erythrocyte) 26 pg 25-34 Automated erythrocyte mean corpuscular h emoglobin concentration measurement (mass/volume) 33 g/dL 32-36 Automated erythrocyte distribution width ratio 15. 2 % 10.0- 14.5 Automated blood platelet count [...] 10*3 1.0-4.0 Blood monocytes automated count (number/volume) 0. 8 10*3 0.0-1.0 Automated eosinophil count 0.0 10*3/uL 0 .0-0.3 Automated blood basophil count (count/volume) 0.0 10*3/uL 0.0-0.1 Comprehensive metabolic panel - 07/08/18 23:14 Serum or plasma sodium measurement (moles/volume) 137 mmol/L 135-145 Serum or plasma potassium measurement (moles/volume) 5.1 mmol/L 3.6-5.0 Serum or plasma chloride measurement (moles/volume) 102 mmol/L 98-107 Carbon dioxide 19 mmol/L 21-32 Serum or plasma anion gap determination (moles/volume) 16 mmol/L 5-14 Serum or plasma urea nitrogen measurement (mass/volume ) 23 mg/dL 7-18 Serum or plasma creatinine measurement (mass/volume) 1.37 mg/dL 0.60-1.30 Serum or plasma urea nitrogen/creatinine mass ratio 17 NRG Serum or plasma creatinine measurement w ith calculation of estimated glomerular filtration rate 47 NRG Serum or plasma glucose measurement (mass/volume) 176 mg/dL 70-105 Serum or plasma calcium measurement (mass/volume) 10.1 mg/dL 8.5-10.1 Serum or plasma total bilirubin measurement (mass/volu me) 0.3 mg/dL 0.1-1.0 Serum or plasma alkaline phosphatase rebecca surement (enzymatic activity/volume) 153 U/L 40-136 Serum or plasma aspartate aminotransfera se measurement (enzymatic activity/volume) 20 U/L 5-34 Serum or plasma alanine aminotransferase measurement (enzymatic activity/volume) 13 U/L 0-55 Serum or plasma protein measurement (mass/volume) 7.5 g/dL 6.4-8.2 Serum or plasma albumin measurement (mass/volume) 4.6 g/dL 3.2-4.5 Magnesium - 07/08/18 23:14 Magnesium 2.0 mg/dL 1.8-2.4 PT panel in platelet poor plasma by coag ulation assay - 07/08/18 23:14 Prothrombin time (PT) in platelet poor plasma by coagu lation assay 16.0 s 12.2-14.7 INR in platelet poor plasma or blood by coagulation as say 1.2 0.8-1.4 Activated partial thromboplastin time (a PTT) in platelet poor plasma bycoagulation assay - 07/08/18 23:14 Activated partial thromboplastin time (a PTT) in platelet poor plasma bycoagulation assay 31 s 24-35 Serum or plasma lithium measurement (mol es/volume) - 07/08/18 23:14 BNP level 260.0 pg/mL <100.0 Serum or plasma troponin i.cardiac measu rement (mass/volume) - 07/08/18 23:14 Serum or plasma troponin i.cardiac measurement (mass/v olume) < ng/mL <0.028 Serum or plasma thyroxine (T4) free charlee urement (mass/volume) - 07/08/18 23:14 Serum or plasma thyroxine (T4) free measurement (mass/ volume) 1.02 ng/dL 0.70-1.48 Serum or plasma thyrotropin measurement by detection limit <=0.05 miu/l (units/volume) - 07/08/18 23:14 Serum or plasma thyrotropin measurement by detection limit <=0.05 miu/l (units/volume) 0.27 u[iU]/mL 0.35-4.94 Bacterial blood culture - 07/08/18 23:20 Bacterial blood culture NG NRG Bacterial blood culture - 07/08/18 23:20 Bacterial blood culture NG NRG Blood lactic acid measurement (moles/vol ume) - 07/08/18 23:27 Blood lactic acid measurement (moles/volume) 2.36 mmol/L 0.50-2.00 Bacterial blood culture - 07/08/18 23:27 Bacterial blood culture NG NRG Bacterial blood culture - 07/08/18 23:27 Bacterial blood culture NG NRG CBC AND DIFF (MANUAL DIFF IF NECESSARY) [...] Alkaline Phosphatase 141 42-140 Aspartate Aminotransferase 30 15- 46 Blood Urea Nitrogen 21 7-26 Chloride 103 [...] NTPROBNP - 08/05/18 17:00 NTproBNP 643 NRG Complete blood count (CBC) with automate d white blood cell (WBC) differential - 09/17/18 08:25 Blood leukocytes automated count (number/volume) 7.3 10*3/uL 4.3-11.0 Blood erythrocytes automated count (number/volume) 5.18 10*6/uL 4.35-5.85 Venous blood hemoglobin measurement (mass/volume) 13.5 g/dL 11.5-16.0 Blood hematocrit (volume fraction) 43 % 35-52 Automated erythrocyte mean corpuscular volume 83 [ foz_us] 80-99 Automated erythrocyte mean corpuscular h emoglobin (mass per erythrocyte) 26 pg 25-34 Automated erythrocyte mean corpuscular h emoglobin concentration measurement (mass/volume) 32 g/dL 32-36 Automated erythrocyte distribution width ratio 14. 2 % 10.0- 14.5 Automated blood platelet count (count/volume) 270 10*3/uL 130-400 Automated blood platelet mean volume measurement 10.0 [foz_us] 7.4-10.4 Automated blood neutrophils/100 leukocytes 46 % 42-75 Automated blood lymphocytes/100 leukocytes 41 % 12-44 Blood monocytes/100 leukocytes 11 % 0-12 Automated blood eosinophils/100 leukocytes 1 % 0-10 Automated blood basophils/100 leukocytes 1 % 0-10 Blood neutrophils automated count (number/volume) 3.4 10*3 1.8-7.8 Blood lymphocytes automated count (number/volume) 3.0 10*3 1.0-4.0 Blood monocytes automated count (number/volume) 0. 8 10*3 0.0-1.0 Automated eosinophil count 0.1 10*3/uL 0 .0-0.3 Automated blood basophil count (count/volume) 0.1 10*3/uL 0.0-0.1 Comprehensive metabolic panel - 09/17/18 08:25 Serum or plasma sodium measurement (moles/volume) 140 mmol/L 135-145 Serum or plasma potassium measurement (moles/volume) 4.2 mmol/L 3.6-5.0 Serum or plasma chloride measurement (moles/volume) 97 mmol/L 98-107 Carbon dioxide 27 mmol/L 21-32 Serum or plasma anion gap determination (moles/volume) 16 mmol/L 5-14 Serum or plasma urea nitrogen measurement (mass/volume ) 14 mg/dL 7-18 Serum or plasma creatinine measurement (mass/volume) 1.18 mg/dL 0.60-1.30 Serum or plasma urea nitrogen/creatinine mass ratio 12 NRG Serum or plasma creatinine measurement w ith calculation of estimated glomerular filtration rate 56 NRG Serum or plasma glucose measurement (mass/volume) 115 mg/dL 70-105 Serum or plasma calcium measurement (mass/volume) 10.2 mg/dL 8.5-10.1 Serum or plasma total bilirubin measurement (mass/volu me) 0.3 mg/dL 0.1-1.0 Serum or plasma alkaline phosphatase rebecca surement (enzymatic activity/volume) 157 U/L 40-136 Serum or plasma aspartate aminotransfera se measurement (enzymatic activity/volume) 20 U/L 5-34 Serum or plasma alanine aminotransferase measurement (enzymatic activity/volume) 12 U/L 0-55 Serum or plasma protein measurement (mass/volume) 7.3 g/dL 6.4-8.2 Serum or plasma albumin measurement (mass/volume) 4.8 g/dL 3.2-4.5 Magnesium - 09/17/18 08:25 Magnesium 1.8 mg/dL 1.8-2.4 Serum or plasma troponin i.cardiac measu rement (mass/volume) - 09/17/18 08:25 Serum or plasma troponin i.cardiac measurement (mass/v olume) 0.54 ng/mL <0.30 Myoglobin, serum - 09/17/18 08:25 Myoglobin, serum 40.9 ng/mL 10.0-92.0 PT panel in platelet poor plasma by coag ulation assay - 09/17/18 08:25 Prothrombin time (PT) in platelet poor plasma by coagu lation assay 16.1 s 12.2-14.7 INR in platelet poor plasma or blood by coagulation as say 1.2 0.8-1.4 Activated partial thromboplastin time (a PTT) in platelet poor plasma bycoagulation assay - 09/17/18 08:25 Activated partial thromboplastin time (a PTT) in platelet poor plasma bycoagulation assay 26 s 24-35 GLUCOSE POC - 09/17/18 12:43 GLUCOSE POC 98 70-100 COMPLETE BLOOD COUNT - 09/17/18 13:36 WBC 7.23 4.00-11.00 Hematocrit 40 36-45 Hemoglobin 12.8 12.0-15.0 MCH 26 27-34 MCHC 32 32-36 MCV 81 80-99 MPV 10.2 9.4-12.3 Platelet Count 258 140-400 RBC 4.96 4.00-5.00 RDW 14.2 11.5-14.5 NUCLEATED RBCS 0 0-0 CLOTTING SCREEN - 09/17/18 13:36 APTT 29 22-34 INR 1.1 TX 0.8-1.2 Protime 14.0 11.4-15.0 MAGNESIUM - 09/17/18 13:36 Magnesium 1.8 1.4-2.7 COMPREHENSIVE METABOLIC PANEL - 09/17/18 13:36 Alanine Aminotransferase 14 0-34 Albumin 4.5 3.5-5.0 Alkaline Phosphatase 142 42-140 Aspartate Aminotransferase 24 15- 46 Blood Urea Nitrogen 18 7-26 Chloride 100 96-112 Carbon Dioxide 28 20-32 Creatinine 1.3 0.4-1.1 Glucose 101 70-100 Potassium 4.1 3.5-5.3 Sodium 139 133-147 Calcium 9.9 8.4-10.5 Anion Gap 11 TX 5-17 Protein Total Serum 7.5 6.0-8.2 BILIRUBIN TOTAL 0.2 0.2-1.3 GFR FEMALE AA 49 60-200 GFR FEMALE NON-AA 41 60-200 TROPONIN - 09/17/18 13:36 Troponin 0.03 0.00-0.03 TROPONIN - 09/17/18 16:24 Troponin 0.04 0.00-0.03 GLUCOSE POC - 09/17/18 17:23 GLUCOSE POC 102 70-100 GLUCOSE POC - 09/17/18 21:46 GLUCOSE POC 108 70-100 TROPONIN - 09/17/18 22:30 Troponin 0.05 0.00-0.03 LIPID PANEL - 09/17/18 22:30 HDL Cholesterol 47 40-110 LDL Cholesterol 69 0-99 Triglycerides 143 0-150 CHOLESTEROL 145 100-200 NON-HDL CHOLESTEROL 98 0-130 CHOLESTEROL/HDL RATIO 3.1 TX 0.0-4.5 GLUCOSE POC - 09/18/18 07:45 GLUCOSE POC 146 70-100 GLUCOSE POC - 09/18/18 11:45 GLUCOSE POC 99 70-100 GLUCOSE POC - 09/18/18 17:34 GLUCOSE POC 118 70-100 GLUCOSE POC - 09/18/18 20:59 GLUCOSE POC 122 70-100 GLUCOSE POC - 09/19/18 07:29 GLUCOSE POC 112 70-100 GLUCOSE POC - 09/19/18 11:53 GLUCOSE POC 103 70-100 CREATINE KINASE - 09/19/18 12:06 Creatine Kinase 189 NRG CBC AND DIFF (MANUAL DIFF IF NECESSARY) - 09/19/18 17:00 WBC 8.22 4.00-11.00 Hematocrit 37 36-45 Hemoglobin 11.6 12.0-15.0 MCH 26 27-34 MCHC 31 32-36 MCV 83 80-99 MPV 10.0 9.4-12.3 Platelet Count 239 140-400 RBC 4.50 4.00-5.00 RDW 14.1 11.5-14.5 NUCLEATED RBCS 0 0-0 % NEUTROPHILS 48 45-78 %LYMPHOCYTES 37 15-47 %MONOCYTES 13 0-12 %EOSINOPHILS 1 0-7 %BASOPHILS 1 0-2 % IMM GRANS 0 0-1 # GRANULOCYTES 3.97 1.70-6.80 # LYMPHOCYTES 3.03 1.00-3.30 # MONOCYTES 1.10 0.20-0.90 # EOSINOPHILS 0.07 0.00-0.40 # BASOPHILS 0.04 0.00-0.10 BASIC METABOLIC PANEL - 09/19/18 17:00 Blood Urea Nitrogen 58 7-26 Chloride 93 96-112 Carbon Dioxide 28 20-32 Creatinine 3.2 0.4-1.1 Glucose 117 70-100 Potassium 5.3 3.5-5.3 Sodium 133 133-147 Calcium 8.9 8.4-10.5 Anion Gap 12 TX 5-17 GFR FEMALE AA 17 60-200 GFR FEMALE NON-AA 15 60-200 PROTHROMBIN TIME/INR - 09/19/18 17:00 INR 1.4 TX 0.8-1.2 Protime 16.8 11.4-15.0 GLUCOSE POC - 09/19/18 17:08 GLUCOSE POC 121 70-100 GLUCOSE POC - 09/19/18 21:21 GLUCOSE POC 105 70-100 GLUCOSE POC - 09/20/18 07:09 GLUCOSE POC 130 70-100 URINALYSIS REFLEX - 09/20/18 07:55 APPEARANCE, URINE Yellow NRG GLUCOSE URINE Negative Negative BILIRUBIN URINE Negative Negative KETONES URINE Negative Negative SPECIFIC GRAVITY UA 1.017 TX 1.001-1.03 0 HEMOGLOBIN URINE Negative Negative PH URINE 5.0 TX 5.0-8.0 PROTEIN URINE QUAL Negative Negative UROBILINOGEN URINE Negative Negative NITRITE URINE Negative Negative LEUKOCYTE ESTERASE Negative Negative SODIUM URINE RANDOM QUANT - 09/20/18 07: 55 Sodium Urine 8 NRG CREATININE URINE RANDOM QUANT - 09/20/18 07:55 Creatinine Urine 211.4 NRG UREA NITROGEN URINE RANDOM QUANT - 09/20 07:55 Urea Nitrogen Urine Random 571 NRG CBC AND DIFF (MANUAL DIFF IF NECESSARY) - 09/20/18 08:18 WBC 7.25 4.00-11.00 Hematocrit 39 36-45 Hemoglobin 12.7 12.0-15.0 MCH 27 27-34 MCHC 32 32-36 MCV 83 80-99 MPV 9.9 9.4-12.3 Platelet Count 247 140-400 RBC 4.75 4.00-5.00 RDW 13.7 11.5-14.5 NUCLEATED RBCS 0 0-0 % NEUTROPHILS 52 45-78 %LYMPHOCYTES 35 15-47 %MONOCYTES 12 0-12 %EOSINOPHILS 1 0-7 %BASOPHILS 0 0-2 % IMM GRANS 0 0-1 # GRANULOCYTES 3.78 1.70-6.80 # LYMPHOCYTES 2.53 1.00-3.30 # MONOCYTES 0.84 0.20-0.90 # EOSINOPHILS 0.07 0.00-0.40 # BASOPHILS 0.03 0.00-0.10 BASIC METABOLIC PANEL - 09/20/18 08:18 Blood Urea Nitrogen 68 7-26 Chloride 89 96-112 Carbon Dioxide 31 20-32 Creatinine 2.9 0.4-1.1 Glucose 118 70-100 Potassium 5.2 3.5-5.3 Sodium 129 133-147 Calcium 9.0 8.4-10.5 Anion Gap 9 TX 5-17 GFR FEMALE AA 20 60-200 GFR FEMALE NON-AA 16 60-200 GLUCOSE POC - 09/20/18 11:14 GLUCOSE POC 123 70-100 GLUCOSE POC - 09/20/18 17:04 GLUCOSE POC 106 70-100 GLUCOSE POC - 09/20/18 21:17 GLUCOSE POC 117 70-100 GLUCOSE POC - 09/21/18 07:16 GLUCOSE POC 106 70-100 GLUCOSE POC - 09/21/18 11:05 GLUCOSE POC 107 70-100 BASIC METABOLIC PANEL - 09/21/18 16:05 Blood Urea Nitrogen 52 7-26 Chloride 93 96-112 Carbon Dioxide 34 20-32 Creatinine 1.3 0.4-1.1 Glucose 123 70-100 Potassium 5.4 3.5-5.3 Sodium 132 133-147 Calcium 8.9 8.4-10.5 Anion Gap 6 TX 5-17 GFR FEMALE AA 49 60-200 GFR FEMALE NON-AA 41 60-200 GLUCOSE POC - 09/21/18 17:06 GLUCOSE POC 139 70-100 GLUCOSE POC - 09/21/18 21:22 GLUCOSE POC 131 70-100 GLUCOSE POC - 09/22/18 07:58 GLUCOSE POC 92 70-100 BASIC METABOLIC PANEL - 09/22/18 08:09 Blood Urea Nitrogen 44 7-26 Chloride 94 96-112 Carbon Dioxide 35 20-32 Creatinine 1.2 0.4-1.1 Glucose 90 70-100 Potassium 5.9 3.5-5.3 Sodium 136 133-147 Calcium 9.3 8.4-10.5 Anion Gap 6 TX 5-17 GFR FEMALE AA 54 60-200 GFR FEMALE NON-AA 45 60-200 GLUCOSE POC - 09/22/18 14:04 GLUCOSE POC 143 70-100 PLATELET - 09/22/18 16:22 Platelet Count 206 140-400 BASIC METABOLIC PANEL - 09/22/18 16:22 Blood Urea Nitrogen 35 7-26 Chloride 95 96-112 Carbon Dioxide 33 20-32 Creatinine 1.0 0.4-1.1 Glucose 135 70-100 Potassium 4.8 3.5-5.3 Sodium 136 133-147 Calcium 8.8 8.4-10.5 Anion Gap 8 TX 5-17 GFR FEMALE AA 67 60-200 GFR FEMALE NON-AA 56 60-200 GLUCOSE POC - 09/22/18 17:33 GLUCOSE POC 150 70-100 APTT - 09/22/18 19:53 APTT >200 22-34 HEPARIN ANTI FACTOR XA, UNFRACTIONATED H EPARIN - 09/22/18 19:53 UNFRACTIONATED HEPARIN ANTI FACTOR XA ASSAY 2.88 0.30-0.70 GLUCOSE POC - 09/22/18 21:03 GLUCOSE POC 131 70-100 HEPARIN ANTI FACTOR XA, UNFRACTIONATED H EPARIN - 09/22/18 23:20 UNFRACTIONATED HEPARIN ANTI FACTOR XA ASSAY 2.00 0.30-0.70 COMPLETE BLOOD COUNT - 09/23/18 02:23 WBC 5.84 4.00-11.00 Hematocrit 36 36-45 Hemoglobin 11.3 12.0-15.0 MCH 26 27-34 MCHC 32 32-36 MCV 84 80-99 MPV 10.8 9.4-12.3 Platelet Count 193 140-400 RBC 4.28 4.00-5.00 RDW 13.6 11.5-14.5 NUCLEATED RBCS 0 0-0 APTT - 09/23/18 02:23 APTT 86 22-34 HEPARIN ANTI FACTOR XA, UNFRACTIONATED H EPARIN - 09/23/18 02:23 UNFRACTIONATED HEPARIN ANTI FACTOR XA ASSAY 1.19 0.30-0.70 BASIC METABOLIC PANEL - 09/23/18 02:23 Blood Urea Nitrogen 29 7-26 Chloride 97 96-112 Carbon Dioxide 33 20-32 Creatinine 1.0 0.4-1.1 Glucose 117 70-100 Potassium 4.8 3.5-5.3 Sodium 135 133-147 Calcium 8.6 8.4-10.5 Anion Gap 5 TX 5-17 GFR FEMALE AA 67 60-200 GFR FEMALE NON-AA 56 60-200 PROTHROMBIN TIME/INR - 09/23/18 02:23 INR 1.1 TX 0.8-1.2 Protime 14.4 11.4-15.0 GLUCOSE POC - 09/23/18 07:56 GLUCOSE POC 85 70-100 GLUCOSE POC - 09/23/18 13:20 GLUCOSE POC 70 70-100 HEPARIN ANTI FACTOR XA, UNFRACTIONATED H EPARIN - 09/23/18 17:01 UNFRACTIONATED HEPARIN ANTI FACTOR XA ASSAY 0.48 0.30-0.70 GLUCOSE POC - 09/23/18 18:39 GLUCOSE POC 91 70-100 GLUCOSE POC - 09/23/18 21:31 GLUCOSE POC 94 70-100 GLUCOSE POC - 09/24/18 07:39 GLUCOSE POC 99 70-100 COMPLETE BLOOD COUNT - 09/24/18 08:00 WBC 5.61 4.00-11.00 Hematocrit 35 36-45 Hemoglobin 11.0 12.0-15.0 MCH 26 27-34 MCHC 31 32-36 MCV 83 80-99 MPV 10.3 9.4-12.3 Platelet Count 199 140-400 RBC 4.23 4.00-5.00 RDW 13.6 11.5-14.5 NUCLEATED RBCS 0 0-0 BASIC METABOLIC PANEL - 09/24/18 08:00 Blood Urea Nitrogen 18 7-26 Chloride 100 96-112 Carbon Dioxide 34 20-32 Creatinine 0.9 0.4-1.1 Glucose 89 70-100 Potassium 4.8 3.5-5.3 Sodium 138 133-147 Calcium 9.2 8.4-10.5 Anion Gap 5 TX 5-17 GFR FEMALE AA 75 60-200 GFR FEMALE NON-AA 63 60-200 GLUCOSE POC - 09/24/18 11:20 GLUCOSE POC 123 70-100 Complete blood count (CBC) with automate d white blood cell (WBC) differential - 10/26/18 20:50 Blood leukocytes automated count (number/volume) 7.3 10*3/uL 4.3-11.0 Blood erythrocytes automated count (number/volume) 5.15 10*6/uL 4.35-5.85 Venous blood hemoglobin measurement (mass/volume) 13.5 g/dL 11.5-16.0 Blood hematocrit (volume fraction) 45 % 35-52 Automated erythrocyte mean corpuscular volume 87 [ foz_us] 80-99 Automated erythrocyte mean corpuscular h emoglobin (mass per erythrocyte) 26 pg 25-34 Automated erythrocyte mean corpuscular h emoglobin concentration measurement (mass/volume) 30 g/dL 32-36 Automated erythrocyte distribution width ratio 14. 1 % 10.0- 14.5 Automated blood platelet count (count/volume) 223 10*3/uL 130-400 Automated blood platelet mean volume measurement 10.0 [foz_us] 7.4-10.4 Automated blood neutrophils/100 leukocytes 83 % 42-75 Automated blood lymphocytes/100 leukocytes 10 % 12-44 Blood monocytes/100 leukocytes 6 % 0-12 Automated blood eosinophils/100 leukocytes 0 % 0-10 Automated blood basophils/100 leukocytes 0 % 0-10 Blood neutrophils automated count (number/volume) 6.1 10*3 1.8-7.8 Blood lymphocytes automated count (number/volume) 0.8 10*3 1.0-4.0 Blood monocytes automated count (number/volume) 0. 4 10*3 0.0-1.0 Automated eosinophil count 0.0 10*3/uL 0 .0-0.3 Automated blood basophil count (count/volume) 0.0 10*3/uL 0.0-0.1 Comprehensive metabolic panel - 10/26/18 20:50 Serum or plasma sodium measurement (moles/volume) 139 mmol/L 135-145 Serum or plasma potassium measurement (moles/volume) 4.6 mmol/L 3.6-5.0 Serum or plasma chloride measurement (moles/volume) 108 mmol/L 98-107 Carbon dioxide 22 mmol/L 21-32 Serum or plasma anion gap determination (moles/volume) 9 mmol/L 5-14 Serum or plasma urea nitrogen measurement (mass/volume ) 18 mg/dL 7-18 Serum or plasma creatinine measurement (mass/volume) 1.05 mg/dL 0.60-1.30 Serum or plasma urea nitrogen/creatinine mass ratio 17 NRG Serum or plasma creatinine measurement w ith calculation of estimated glomerular filtration rate 53 NRG Serum or plasma glucose measurement (mass/volume) 132 mg/dL 70-105 Serum or plasma calcium measurement (mass/volume) 9.3 mg/dL 8.5-10.1 Serum or plasma total bilirubin measurement (mass/volu me) 0.5 mg/dL 0.1-1.0 Serum or plasma alkaline phosphatase rebecca surement (enzymatic activity/volume) 157 U/L 40-136 Serum or plasma aspartate aminotransfera se measurement (enzymatic activity/volume) 17 U/L 5-34 Serum or plasma alanine aminotransferase measurement (enzymatic activity/volume) 12 U/L 0-55 Serum or plasma protein measurement (mass/volume) 6.7 g/dL 6.4-8.2 Serum or plasma albumin measurement (mass/volume) 4.0 g/dL 3.2-4.5 CALCIUM CORRECTED 9.3 mg/dL 8.5-10.1 Magnesium - 10/26/18 20:50 Magnesium 1.6 mg/dL 1.6-2.4 Serum or plasma troponin i.cardiac measu rement (mass/volume) - 10/26/18 20:50 Serum or plasma troponin i.cardiac measurement (mass/v olume) < ng/mL <0.30 PROBNP FS - 10/26/18 20:50 PROBNP FS 703.6 pg/mL <75.0 Influenza virus A and B antigen detectio n - 10/26/18 21:15 FLU RESULT NEGATIVE FOR INFLUENZA A AND B ANTIGENS BY IA NRG Arterial blood gas measurement - 9 21:55 Blood pCO2 39 mm[Hg] 35-45 Blood pO2 55 mm[Hg] 79-93 Arterial blood bicarbonate measurement (moles/volume) 24 mmol/L 23-27 Arterial blood base excess by calculation -1.2 mmo l/L -2.5-2.5 Arterial blood oxygen saturation measurement 88 % 94-100 * Inhaled oxygen flow rate 4 NRG Arterial blood pH measurement with patient temperature correction 7.39 7.37-7.43 Arterial blood carbon dioxide, total measurement (mole s/volume) 24.8 mmol/L 21.0-31.0 Body site LEFT RADIAL NRG Assessment of wrist artery patency prior to arterial p uncture PASSED NRG Setting of ventilation mode NO NR G Measurement of body temperature 100.9 NRG Complete urinalysis with reflex to cultu re - 10/26/18 21:55 Urine color determination YELLOW NRG Urine clarity determination CLEAR NR G Urine pH measurement by test strip 6.0 5-9 Specific gravity of urine by test strip 1.025 1.016-1.022 Urine protein assay by test strip, semi-quantitative TRACE NEGATIVE Urine glucose detection by automated test strip NE GATIVE NEGATIVE Erythrocytes detection in urine sediment by light micr oscopy NEGATIVE NEGATIVE Urine ketones detection by automated test strip NE GATIVE NEGATIVE Urine nitrite detection by test strip NEGATIVE NEGATIVE Urine total bilirubin detection by test strip NEGA TIVE NEGATIVE Urine urobilinogen measurement by automated test strip (mass/volume) 1.0 mg/dL NORMAL Urine leukocyte esterase detection by dipstick NEG ATIVE NEGATIVE Automated urine sediment erythrocyte cou nt by microscopy (number/high power field) NONE NRG Automated urine sediment leukocyte count by microscopy (number/high power field) [HPF] NRG Bacteria detection in urine sediment by light microsco py NEGATIVE NRG Squamous epithelial cells detection in u rine sediment by light microscopy 2-5 NRG Crystals detection in urine sediment by light microsco py NONE NRG Casts detection in urine sediment by light microscopy NONE NRG Mucus detection in urine sediment by light microscopy NEGATIVE NRG Complete urinalysis with reflex to culture NO NRG Fibrin D-dimer FEU measurement in platel et poor plasma (mass/volume) - 10/27/18 00:05 Fibrin D-dimer FEU measurement in platelet poor plasma (mass/volume) 0.93 ug/mL 0.00-0.49 Serum or plasma troponin i.cardiac measu rement (mass/volume) - 10/27/18 00:26 Serum or plasma troponin i.cardiac measurement (mass/v olume) < ng/mL <0.30 BASIC METABOLIC PANEL - 11/18/18 15:10 Blood Urea Nitrogen 12 7-26 Chloride 107 96-112 Carbon Dioxide 24 20-32 Creatinine 0.7 0.4-1.1 Glucose 133 70-100 Potassium 4.8 3.5-5.3 Sodium 140 133-147 Calcium 9.7 8.4-10.5 Anion Gap 9 TX 5-17 GFR FEMALE AA 101 60-200 GFR FEMALE NON-AA 84 60-200 Influenza virus A and B antigen detectio n - 01/15/19 17:15 FLU RESULT NEGATIVE FOR INFLUENZA A AND B ANTIGENS BY IA NRG Complete blood count (CBC) with automate d white blood cell (WBC) differential - 01/15/19 18:10 Blood leukocytes automated count (number/volume) 14.4 10*3/uL 4.3-11.0 Blood erythrocytes automated count (number/volume) 4.80 10*6/uL 4.35-5.85 Venous blood hemoglobin measurement (mass/volume) 12.7 g/dL 11.5-16.0 Blood hematocrit (volume fraction) 42 % 35-52 Automated erythrocyte mean corpuscular volume 87 [ foz_us] 80-99 Automated erythrocyte mean corpuscular h emoglobin (mass per erythrocyte) 26 pg 25-34 Automated erythrocyte mean corpuscular h emoglobin concentration measurement (mass/volume) 31 g/dL 32-36 Automated erythrocyte distribution width ratio 14. 0 % 10.0- 14.5 Automated blood platelet count (count/volume) 238 10*3/uL 130-400 Automated blood platelet mean volume measurement 10.1 [foz_us] 7.4-10.4 Automated blood neutrophils/100 leukocytes 67 % 42-75 Automated blood lymphocytes/100 leukocytes 22 % 12-44 Blood monocytes/100 leukocytes 11 % 0-12 Automated blood eosinophils/100 leukocytes 0 % 0-10 Automated blood basophils/100 leukocytes 0 % 0-10 Blood neutrophils automated count (number/volume) 9.6 10*3 1.8-7.8 Blood lymphocytes automated count (number/volume) 3.2 10*3 1.0-4.0 Blood monocytes automated count (number/volume) 1. 5 10*3 0.0-1.0 Automated eosinophil count 0.0 10*3/uL 0 .0-0.3 Automated blood basophil count (count/volume) 0.1 10*3/uL 0.0-0.1 Manual absolute plasma cell count - 09/26 18:10 Blood monocytes/100 leukocytes 10 % NRG Manual blood segmented neutrophils/100 leukocytes 65 % NRG Manual blood lymphocytes/100 leukocytes 25 % NRG Comprehensive metabolic panel - 01/15/19 18:10 Serum or plasma sodium measurement (moles/volume) 140 mmol/L 135-145 Serum or plasma potassium measurement (moles/volume) 4.0 mmol/L 3.6-5.0 Serum or plasma chloride measurement (moles/volume) 106 mmol/L 98-107 Carbon dioxide 23 mmol/L 21-32 Serum or plasma anion gap determination (moles/volume) 11 mmol/L 5-14 Serum or plasma urea nitrogen measurement (mass/volume ) 20 mg/dL 7-18 Serum or plasma creatinine measurement (mass/volume) 1.15 mg/dL 0.60-1.30 Serum or plasma urea nitrogen/creatinine mass ratio 17 NRG Serum or plasma creatinine measurement w ith calculation of estimated glomerular filtration rate 57 NRG Serum or plasma glucose measurement (mass/volume) 84 mg/dL 70-105 Serum or plasma calcium measurement (mass/volume) 9.4 mg/dL 8.5-10.1 Serum or plasma total bilirubin measurement (mass/volu me) < mg/dL 0.1-1.0 Serum or plasma alkaline phosphatase rebecca surement (enzymatic activity/volume) 151 U/L 40-136 Serum or plasma aspartate aminotransfera se measurement (enzymatic activity/volume) 14 U/L 5-34 Serum or plasma alanine aminotransferase measurement (enzymatic activity/volume) 13 U/L 0-55 Serum or plasma protein measurement (mass/volume) 6.7 g/dL 6.4-8.2 Serum or plasma albumin measurement (mass/volume) 3.9 g/dL 3.2-4.5 CALCIUM CORRECTED 9.5 mg/dL 8.5-10.1 PROBNP FS - 01/15/19 18:10 PROBNP FS 1464.0 pg/mL <75.0 MICROALBUMIN RANDOM - 01/18/19 13:40 Creatinine Urine 239.6 NRG MICROALBUMIN MG/DL <0.60 NRG MICROALBUMIN/CREATININE RATIO Not Calc 0.00-30.00 VITAMIN D, 25-HYDROXY - 01/18/19 13:40 VITAMIN D 25-HYDROXY 42 25-80 LIPID PANEL - 01/18/19 13:40 HDL Cholesterol 46 40-110 LDL Cholesterol 79 0-99 Triglycerides 137 0-150 CHOLESTEROL 152 100-200 NON-HDL CHOLESTEROL 106 0-130 CHOLESTEROL/HDL RATIO 3.3 TX 0.0-4.5 COMPREHENSIVE METABOLIC PANEL - 01/18/19 13:40 Alanine Aminotransferase 14 0-34 Albumin 4.1 3.5-5.0 Alkaline Phosphatase 154 42-140 Aspartate Aminotransferase 19 15- 46 Blood Urea Nitrogen 25 7-26 Chloride 103 96-112 Carbon Dioxide 28 20-32 Creatinine 1.1 0.4-1.1 Glucose 132 70-100 Potassium 4.3 3.5-5.3 Sodium 141 133-147 Calcium 9.9 8.4-10.5 Anion Gap 9 TX 5-17 Protein Total Serum 6.6 6.0-8.2 BILIRUBIN TOTAL 0.3 0.2-1.3 GFR FEMALE AA 60 60-200 GFR FEMALE NON-AA 50 60-200 THYROID STIMULATING HORMONE - 01/18/19 1 3:40 Thyroid Stimulating Hormone 2.34 0. 47-4.68 Complete blood count (CBC) with automate d white blood cell (WBC) differential - 01/25/19 20:08 Blood leukocytes automated count (number/volume) 14.9 10*3/uL 4.3-11.0 Blood erythrocytes automated count (number/volume) 4.98 10*6/uL 4.35-5.85 Venous blood hemoglobin measurement (mass/volume) 13.2 g/dL 11.5-16.0 Blood hematocrit (volume fraction) 42 % 35-52 Automated erythrocyte mean corpuscular volume 84 [ foz_us] 80-99 Automated erythrocyte mean corpuscular h emoglobin (mass per erythrocyte) 27 pg 25-34 Automated erythrocyte mean corpuscular h emoglobin concentration measurement (mass/volume) 32 g/dL 32-36 Automated erythrocyte distribution width ratio 14. 7 % 10.0- 14.5 Automated blood platelet count (count/volume) 239 10*3/uL 130-400 Automated blood platelet mean volume measurement 10.8 [foz_us] 7.4-10.4 Automated blood neutrophils/100 leukocytes 55 % 42-75 Automated blood lymphocytes/100 leukocytes 35 % 12-44 Blood monocytes/100 leukocytes 9 % 0-12 Automated blood eosinophils/100 leukocytes 0 % 0-10 Automated blood basophils/100 leukocytes 0 % 0-10 Blood neutrophils automated count (number/volume) 8.2 10*3 1.8-7.8 Blood lymphocytes automated count (number/volume) 5.2 10*3 1.0-4.0 Blood monocytes automated count (number/volume) 1. 3 10*3 0.0-1.0 Automated eosinophil count 0.1 10*3/uL 0 .0-0.3 Automated blood basophil count (count/volume) 0.1 10*3/uL 0.0-0.1 PT panel in platelet poor plasma by coag ulation assay - 01/25/19 20:08 Prothrombin time (PT) in platelet poor plasma by coagu lation assay 13.5 s 12.2-14.7 INR in platelet poor plasma or blood by coagulation as say 1.0 0.8-1.4 Activated partial thromboplastin time (a PTT) in platelet poor plasma bycoagulation assay - 01/25/19 20:08 Activated partial thromboplastin time (a PTT) in platelet poor plasma bycoagulation assay 23 s 24-35 Manual absolute plasma cell count - 01/08 09/26 20:08 Blood monocytes/100 leukocytes 7 % NRG Manual blood segmented neutrophils/100 leukocytes 51 % NRG Blood band neutrophils/100 leukocytes 0 % NRG Manual blood lymphocytes/100 leukocytes 42 % NRG Manual eosinophils/100 leukocytes in nose 0 % NRG Manual blood basophils/100 leukocytes 0 % NRG Comprehensive metabolic panel - 01/25/19 20:08 Serum or plasma sodium measurement (moles/volume) 142 mmol/L 135-145 Serum or plasma potassium measurement (moles/volume) 3.9 mmol/L 3.6-5.0 Serum or plasma chloride measurement (moles/volume) 101 mmol/L 98-107 Carbon dioxide 29 mmol/L 21-32 Serum or plasma anion gap determination (moles/volume) 12 mmol/L 5-14 Serum or plasma urea nitrogen measurement (mass/volume ) 19 mg/dL 7-18 Serum or plasma creatinine measurement (mass/volume) 1.48 mg/dL 0.60-1.30 Serum or plasma urea nitrogen/creatinine mass ratio 13 NRG Serum or plasma creatinine measurement w ith calculation of estimated glomerular filtration rate 43 NRG Serum or plasma glucose measurement (mass/volume) 129 mg/dL 70-105 Serum or plasma calcium measurement (mass/volume) 9.6 mg/dL 8.5-10.1 Serum or plasma total bilirubin measurement (mass/volu me) 0.2 mg/dL 0.1-1.0 Serum or plasma alkaline phosphatase rebecca surement (enzymatic activity/volume) 148 U/L 40-136 Serum or plasma aspartate aminotransfera se measurement (enzymatic activity/volume) 19 U/L 5-34 Serum or plasma alanine aminotransferase measurement (enzymatic activity/volume) 16 U/L 0-55 Serum or plasma protein measurement (mass/volume) 6.7 g/dL 6.4-8.2 Serum or plasma albumin measurement (mass/volume) 4.3 g/dL 3.2-4.5 CALCIUM CORRECTED 9.4 mg/dL 8.5-10.1 Magnesium - 01/25/19 20:08 Magnesium 1.9 mg/dL 1.6-2.4 Lipase - 01/25/19 20:08 Lipase 51 U/L 8-78 TROPONIN I FS - 01/25/19 20:08 TROPONIN I FS 0.43 ng/mL <0.30 PROBNP FS - 01/25/19 20:08 PROBNP FS 932.5 pg/mL <75.0 GLUCOSE POC - 01/26/19 02:55 GLUCOSE POC 106 70-100 CBC AND DIFF (MANUAL DIFF IF NECESSARY) - 01/26/19 03:56 WBC 12.79 4.00-11.00 Hematocrit 39 36-45 Hemoglobin 12.2 12.0-15.0 MCH 26 27-34 MCHC 31 32-36 MCV 82 80-99 MPV 10.0 9.4-12.3 Platelet Count 211 140-400 RBC 4.76 4.00-5.00 RDW 14.5 11.5-14.5 NUCLEATED RBCS 0 0-0 % NEUTROPHILS 62 45-78 %LYMPHOCYTES 27 15-47 %MONOCYTES 9 0-12 %EOSINOPHILS 1 0-7 %BASOPHILS 0 0-2 % IMM GRANS 1 0-1 # GRANULOCYTES 8.15 1.70-6.80 # LYMPHOCYTES 3.43 1.00-3.30 # MONOCYTES 1.11 0.20-0.90 # EOSINOPHILS 0.07 0.00-0.40 # BASOPHILS 0.04 0.00-0.10 CLOTTING SCREEN - 01/26/19 03:56 APTT 23 22-34 INR 1.1 TX 0.8-1.2 Protime 13.7 11.4-15.0 BASIC METABOLIC PANEL - 01/26/19 03:56 Blood Urea Nitrogen 22 7-26 Chloride 102 96-112 Carbon Dioxide 30 20-32 Creatinine 1.2 0.4-1.1 Glucose 170 70-100 Potassium 3.8 3.5-5.3 Sodium 137 133-147 Calcium 9.3 8.4-10.5 Anion Gap 6 TX 5-17 GFR FEMALE AA 54 60-200 GFR FEMALE NON-AA 45 60-200 MAGNESIUM - 01/26/19 03:56 Magnesium 1.8 1.4-2.7 TROPONIN - 01/26/19 03:56 Troponin 0.06 0.00-0.03 THYROID CASCADE - 01/26/19 03:56 Thyroid Stimulating Hormone 3.17 0. 47-4.68 NTPROBNP - 01/26/19 03:56 NTproBNP 1280 NRG C-REACTIVE PROTEIN - 01/26/19 03:56 C Reactive Protein < 0.0-10.0 ERYTHROCYTE SEDIMENTATION RATE - 9 03:56 SED RATE 4 0-17 TROPONIN - 01/26/19 06:38 Troponin 0.05 0.00-0.03 GLUCOSE POC - 01/26/19 07:39 GLUCOSE POC 133 70-100 GLUCOSE POC - 01/26/19 10:22 GLUCOSE POC 116 70-100 TROPONIN - 01/26/19 11:31 Troponin 0.05 0.00-0.03 PROCALCITONIN - 01/26/19 11:31 Procalcitonin <0.05 0.00-0.10 TOXICOLOGY SCREENING PANEL - 01/26/19 13 :55 Amphetamines Urine Not Detected Not Det ected Barbiturates Urine Not Detected Not Det ected Benzodiazepines Urine Not Detected Not Detected Cocaine Urine Not Detected Not Detected Methadone Urine Not Detected Not Detect ed Methamphetamines Urine Not Detected Not Detected Opiates Urine Not Detected Not Detected Oxycodone Urine Present Not Detected Phencyclidine Urine Not Detected Not De tected Tricyclic Antidepressants Not Detected Not Detected Tetrahydrocannabinol Urine Not Detected Not Detected STREP PNEUMONIAE URINE ANTIGEN - 9 13:55 STREPTOCOCCUS PNEUMONIAE URINE ANTIGEN Negative Negative LEGIONELLA URINE ANTIGEN - 01/26/19 13:5 5 LEGIONELLA URINE ANTIGEN Negative Negat jarrell RESPIRATORY PANEL BY PCR - 01/26/19 13:5 5 Source NASOPHAR NRG Adenovirus Not Detected Not Detected Bordetella pertussis Not Detected Not D etected Chlamydophila pneumoniae Not Detected N ot Detected Human Metapneumovirus (hMPV) Not Detected Not Detected Human Rhinovirus Enterovirus Not Detected Not Detected Mycoplasma pneumoniae Not Detected Not Detected INFLUENZA A Not Detected Not Detected INFLUENZA B Not Detected Not Detected RESPIRATORY SYNCYTIAL VIRUS PL Not Detected Not Detected CORONAVIRUS 229E Not Detected Not Detec chioma CORONAVIRUS HKU1 Not Detected Not Detec chioma CORONAVIRUS NL63 Not Detected Not Detec chioma CORONAVIRUS OC43 Not Detected Not Detec chioma PARAINFLUENZA VIRUS (PIV) 1 Not Detected Not Detected PARAINFLUENZA VIRUS (PIV) 2 Not Detected Not Detected PARAINFLUENZA VIRUS (PIV) 3 Not Detected Not Detected PARAINFLUENZA VIRUS (PIV) 4 Not Detected Not Detected OPIATES CONFIRMATION, U - 01/26/19 13:55 CODEINE BY LC-MS/MS Negative Cutoff: 25 DIHYDROCODEINE BY LC-MS/MS Negative Cut off: 25 HYDROCODONE BY LC-MS/MS Negative Cutoff : 25 NORHYDROCODONE BY LC-MS/MS Negative Cut off: 25 HYDROMORPHONE BY LC-MS/MS Negative Cuto ff: 25 OXYCODONE BY LC-MS/MS 575 Cutoff: 25 NOROXYCODONE BY LC-MS/MS 211 Cutof f: 25 OXYMORPHONE BY LC-MS/MS Negative Cutoff : 25 NOROXYMORPHONE BY LC-MS/MS Negative Cut off: 25 NALOXONE BY LC-MS/MS Negative Cutoff: 2 5 MORPHINE BY LC-MS/MS Negative Cutoff: 2 5 OPIATES INTERPRETATION Positive. NRG GLUCOSE POC - 01/26/19 16:39 GLUCOSE POC 134 70-100 GLUCOSE POC - 01/26/19 21:05 GLUCOSE POC 162 70-100 GLUCOSE POC - 01/27/19 07:49 GLUCOSE POC 138 70-100 GLUCOSE POC - 01/27/19 11:39 GLUCOSE POC 144 70-100 BASIC METABOLIC PANEL - 01/27/19 15:08 Blood Urea Nitrogen 43 7-26 Chloride 94 96-112 Carbon Dioxide 32 20-32 Creatinine 1.4 0.4-1.1 Glucose 150 70-100 Potassium 4.8 3.5-5.3 Sodium 134 133-147 Calcium 9.7 8.4-10.5 Anion Gap 9 TX 5-17 GFR FEMALE AA 45 60-200 GFR FEMALE NON-AA 38 60-200 GLUCOSE POC - 01/27/19 17:29 GLUCOSE POC 152 70-100 GLUCOSE POC - 01/28/19 01:07 GLUCOSE POC 143 70-100 BASIC METABOLIC PANEL - 01/28/19 07:29 Blood Urea Nitrogen 49 7-26 Chloride 92 96-112 Carbon Dioxide 35 20-32 Creatinine 1.4 0.4-1.1 Glucose 146 70-100 Potassium 4.7 3.5-5.3 Sodium 134 133-147 Calcium 9.3 8.4-10.5 Anion Gap 6 TX 5-17 GFR FEMALE AA 45 60-200 GFR FEMALE NON-AA 38 60-200 GLUCOSE POC - 01/28/19 07:41 GLUCOSE POC 141 70-100 GLUCOSE POC - 01/28/19 11:20 GLUCOSE POC 136 70-100 GLUCOSE POC - 01/28/19 17:02 GLUCOSE POC 156 70-100 GLUCOSE POC - 01/28/19 20:56 GLUCOSE POC 191 70-100 GLUCOSE POC - 01/29/19 07:40 GLUCOSE POC 126 70-100 BASIC METABOLIC PANEL - 01/29/19 07:50 Blood Urea Nitrogen 45 7-26 Chloride 94 96-112 Carbon Dioxide 36 20-32 Creatinine 1.0 0.4-1.1 Glucose 117 70-100 Potassium 5.5 3.5-5.3 Sodium 133 133-147 Calcium 8.5 8.4-10.5 Anion Gap 3 TX 5-17 GFR FEMALE AA 67 60-200 GFR FEMALE NON-AA 56 60-200 NTPROBNP - 01/29/19 07:50 NTproBNP 500 NRG GLUCOSE POC - 01/29/19 11:15 GLUCOSE POC 111 70-100 GLUCOSE POC - 01/29/19 16:51 GLUCOSE POC 145 70-100 GLUCOSE POC - 01/29/19 21:36 GLUCOSE POC 153 70-100 BASIC METABOLIC PANEL - 01/30/19 07:14 Blood Urea Nitrogen 36 7-26 Chloride 95 96-112 Carbon Dioxide 37 20-32 Creatinine 1.0 0.4-1.1 Glucose 100 70-100 Potassium 5.3 3.5-5.3 Sodium 134 133-147 Calcium 8.9 8.4-10.5 Anion Gap 2 TX 5-17 GFR FEMALE AA 67 60-200 GFR FEMALE NON-AA 56 60-200 GLUCOSE POC - 01/30/19 08:21 GLUCOSE POC 95 70-100 GLUCOSE POC - 01/30/19 11:20 GLUCOSE POC 138 70-100 Complete blood count (CBC) with automate d white blood cell (WBC) differential - 02/09/19 19:35 Blood leukocytes automated count (number/volume) 10.8 10*3/uL 4.3-11.0 Blood erythrocytes automated count (number/volume) 4.00 10*6/uL 4.35-5.85 Venous blood hemoglobin measurement (mass/volume) 10.6 g/dL 11.5-16.0 Blood hematocrit (volume fraction) 37 % 35-52 Automated erythrocyte mean corpuscular volume 92 [ foz_us] 80-99 Automated erythrocyte mean corpuscular h emoglobin (mass per erythrocyte) 27 pg 25-34 Automated erythrocyte mean corpuscular h emoglobin concentration measurement (mass/volume) 29 g/dL 32-36 Automated erythrocyte distribution width ratio 15. 4 % 10.0- 14.5 Automated blood platelet count (count/volume) 166 10*3/uL 130-400 Automated blood platelet mean volume measurement 9.8 [foz_us] 7.4-10.4 Automated blood neutrophils/100 leukocytes 72 % 42-75 Automated blood lymphocytes/100 leukocytes 20 % 12-44 Blood monocytes/100 leukocytes 8 % 0-12 Automated blood eosinophils/100 leukocytes 0 % 0-10 Automated blood basophils/100 leukocytes 0 % 0-10 Blood neutrophils automated count (number/volume) 7.8 10*3 1.8-7.8 Blood lymphocytes automated count (number/volume) 2.1 10*3 1.0-4.0 Blood monocytes automated count (number/volume) 0. 8 10*3 0.0-1.0 Automated eosinophil count 0.0 10*3/uL 0 .0-0.3 Automated blood basophil count (count/volume) 0.0 10*3/uL 0.0-0.1 Comprehensive metabolic panel - 02/09/19 19:35 Serum or plasma sodium measurement (moles/volume) 141 mmol/L 135-145 Serum or plasma potassium measurement (moles/volume) 4.8 mmol/L 3.6-5.0 Serum or plasma chloride measurement (moles/volume) 106 mmol/L 98-107 Carbon dioxide 27 mmol/L 21-32 Serum or plasma anion gap determination (moles/volume) 8 mmol/L 5-14 Serum or plasma urea nitrogen measurement (mass/volume ) 22 mg/dL 7-18 Serum or plasma creatinine measurement (mass/volume) 1.05 mg/dL 0.60-1.30 Serum or plasma urea nitrogen/creatinine mass ratio 21 NRG Serum or plasma creatinine measurement w ith calculation of estimated glomerular filtration rate > NRG Serum or plasma glucose measurement (mass/volume) 159 mg/dL 70-105 Serum or plasma calcium measurement (mass/volume) 8.2 mg/dL 8.5-10.1 Serum or plasma total bilirubin measurement (mass/volu me) 0.2 mg/dL 0.1-1.0 Serum or plasma alkaline phosphatase rebecca surement (enzymatic activity/volume) 83 U/L 40-136 Serum or plasma aspartate aminotransfera se measurement (enzymatic activity/volume) 27 U/L 5-34 Serum or plasma alanine aminotransferase measurement (enzymatic activity/volume) 20 U/L 0-55 Serum or plasma protein measurement (mass/volume) 5.1 g/dL 6.4-8.2 Serum or plasma albumin measurement (mass/volume) 3.4 g/dL 3.2-4.5 CALCIUM CORRECTED 8.7 mg/dL 8.5-10.1 Magnesium - 02/09/19 19:35 Magnesium 1.8 mg/dL 1.6-2.4 TROPONIN I FS - 02/09/19 19:35 TROPONIN I FS 0.53 ng/mL <0.30 PROBNP FS - 02/09/19 19:35 PROBNP FS 1387.0 pg/mL <75.0 Blood lactic acid measurement (moles/vol ume) - 02/09/19 19:35 Blood lactic acid measurement (moles/volume) 1.12 mmol/L 0.50-2.00 Complete urinalysis with reflex to cultu re - 02/09/19 19:45 Urine color determination DARK YELLOW N RG Urine clarity determination CLEAR NR G Urine pH measurement by test strip 5.5 5-9 Specific gravity of urine by test strip >= 1.016-1.022 Urine protein assay by test strip, semi-quantitative TRACE NEGATIVE Urine glucose detection by automated test strip NE GATIVE NEGATIVE Erythrocytes detection in urine sediment by light micr oscopy NEGATIVE NEGATIVE Urine ketones detection by automated test strip NE GATIVE NEGATIVE Urine nitrite detection by test strip NEGATIVE NEGATIVE Urine total bilirubin detection by test strip NEGA TIVE NEGATIVE Urine urobilinogen measurement by automated test strip (mass/volume) 0.2 mg/dL < = 1.0 Urine leukocyte esterase detection by dipstick NEG ATIVE NEGATIVE Automated urine sediment erythrocyte cou nt by microscopy (number/high power field) NONE NRG Automated urine sediment leukocyte count by microscopy (number/high power field) [HPF] NRG Bacteria detection in urine sediment by light microsco py NEGATIVE NRG Squamous epithelial cells detection in u rine sediment by light microscopy RARE NRG Crystals detection in urine sediment by light microsco py PRESENT NRG Casts detection in urine sediment by light microscopy PRESENT NRG Mucus detection in urine sediment by light microscopy MODERATE NRG Complete urinalysis with reflex to culture NO NRG Amorphous sediment detection in urine sediment by ligh t microscopy FEW CHANG URATES NRG Hyaline casts detection in urine sediment by light rogerio roscopy 10-25 NRG Blood CBC with ordered manual differenti al panel - 02/23/19 00:50 Blood leukocytes automated count (number/volume) 11.8 10*3/uL 4.3-11.0 Blood erythrocytes automated count (number/volume) 4.75 10*6/uL 4.35-5.85 Venous blood hemoglobin measurement (mass/volume) 12.7 g/dL 11.5-16.0 Blood hematocrit (volume fraction) 42 % 35-52 Automated erythrocyte mean corpuscular volume 88 [ foz_us] 80-99 Automated erythrocyte mean corpuscular h emoglobin (mass per erythrocyte) 27 pg 25-34 Automated erythrocyte mean corpuscular h emoglobin concentration measurement (mass/volume) 30 g/dL 32-36 Automated erythrocyte distribution width ratio 15. 1 % 10.0- 14.5 Automated blood platelet count (count/volume) 171 10*3/uL 130-400 Automated blood platelet mean volume measurement 10.6 [foz_us] 7.4-10.4 Automated blood neutrophils/100 leukocytes 34 % 42-75 Automated blood lymphocytes/100 leukocytes 56 % 12-44 Blood monocytes/100 leukocytes 5 % NRG Automated blood eosinophils/100 leukocytes 0 % 0-10 Automated blood basophils/100 leukocytes 1 % 0-10 Blood neutrophils automated count (number/volume) 4.1 10*3 1.8-7.8 Blood lymphocytes automated count (number/volume) 6.7 10*3 1.0-4.0 Blood monocytes automated count (number/volume) 0. 9 10*3 0.0-1.0 Automated eosinophil count 0.0 10*3/uL 0 .0-0.3 Automated blood basophil count (count/volume) 0.1 10*3/uL 0.0-0.1 Manual blood segmented neutrophils/100 leukocytes 32 % NRG Blood band neutrophils/100 leukocytes 0 % NRG Manual blood lymphocytes/100 leukocytes 58 % NRG Manual eosinophils/100 leukocytes in nose 0 % NRG Manual blood basophils/100 leukocytes 0 % NRG Manual blood lymphocytes variant/100 leukocytes 3 % NRG Blood ovalocytes detection by light microscopy SLI GHT NRG Manual blood metamyelocytes/100 leukocytes 1 % NRG Blood poikilocytosis detection by light microscopy SLIGHT NRG Blood schistocytes detection by light microscopy [facility] Comprehensive metabolic panel - 02/23/19 00:50 Serum or plasma sodium measurement (moles/volume) 138 mmol/L 135-145 Serum or plasma potassium measurement (moles/volume) 4.3 mmol/L 3.6-5.0 Serum or plasma chloride measurement (moles/volume) 102 mmol/L 98-107 Carbon dioxide 20 mmol/L 21-32 Serum or plasma anion gap determination (moles/volume) 16 mmol/L 5-14 Serum or plasma urea nitrogen measurement (mass/volume ) 8 mg/dL 7-18 Serum or plasma creatinine measurement (mass/volume) 1.36 mg/dL 0.60-1.30 Serum or plasma urea nitrogen/creatinine mass ratio 6 NRG Serum or plasma creatinine measurement w ith calculation of estimated glomerular filtration rate 47 NRG Serum or plasma glucose measurement (mass/volume) 173 mg/dL 70-105 Serum or plasma calcium measurement (mass/volume) 8.9 mg/dL 8.5-10.1 Serum or plasma total bilirubin measurement (mass/volu me) 0.3 mg/dL 0.1-1.0 Serum or plasma alkaline phosphatase rebecca surement (enzymatic activity/volume) 105 U/L 40-136 Serum or plasma aspartate aminotransfera se measurement (enzymatic activity/volume) 24 U/L 5-34 Serum or plasma alanine aminotransferase measurement (enzymatic activity/volume) 22 U/L 0-55 Serum or plasma protein measurement (mass/volume) 6.2 g/dL 6.4-8.2 Serum or plasma albumin measurement (mass/volume) 3.7 g/dL 3.2-4.5 CALCIUM CORRECTED 9.1 mg/dL 8.5-10.1 Magnesium - 02/23/19 00:50 Magnesium 1.9 mg/dL 1.6-2.4 TROPONIN I FS - 02/23/19 00:50 TROPONIN I FS 109.00 ng/mL <0.30 PROBNP FS - 02/23/19 00:50 PROBNP FS 648.8 pg/mL <75.0 COMPLETE BLOOD COUNT - 02/23/19 05:40 WBC 9.46 4.00-11.00 Hematocrit 38 36-45 Hemoglobin 11.9 12.0-15.0 MCH 26 27-34 MCHC 31 32-36 MCV 83 80-99 MPV 9.8 9.4-12.3 Platelet Count 221 140-400 RBC 4.59 4.00-5.00 RDW 15.0 11.5-14.5 NUCLEATED RBCS 0 0-0 MAGNESIUM - 02/23/19 05:40 Magnesium 2.0 1.4-2.7 COMPREHENSIVE METABOLIC PANEL - 02/23/19 05:40 Alanine Aminotransferase 22 0-34 Albumin 3.3 3.5-5.0 Alkaline Phosphatase 99 42-140 Aspartate Aminotransferase 28 15- 46 Blood Urea Nitrogen 10 7-26 Chloride 103 96-112 Carbon Dioxide 28 20-32 Creatinine 1.2 0.4-1.1 Glucose 130 70-100 Potassium 3.8 3.5-5.3 Sodium 136 133-147 Calcium 9.1 8.4-10.5 Anion Gap 5 TX 5-17 Protein Total Serum 5.5 6.0-8.2 BILIRUBIN TOTAL 0.3 0.2-1.3 GFR FEMALE AA 54 60-200 GFR FEMALE NON-AA 45 60-200 TROPONIN - 02/23/19 05:40 Troponin 0.66 0.00-0.03 T4 FREE - 02/23/19 05:40 T4 FREE 1.6 0.8-2.2 THYROID STIMULATING HORMONE - 02/23/19 0 5:40 Thyroid Stimulating Hormone 3.31 0. 47-4.68 GLUCOSE POC - 02/23/19 07:36 GLUCOSE POC 91 70-100 TROPONIN - 02/23/19 08:58 Troponin 0.79 0.00-0.03 TROPONIN - 02/23/19 12:02 Troponin 0.74 0.00-0.03 GLUCOSE POC - 02/23/19 12:09 GLUCOSE POC 103 70-100 GLUCOSE POC - 02/23/19 17:15 GLUCOSE POC 91 70-100 GLUCOSE POC - 02/23/19 22:11 GLUCOSE POC 105 70-100 PLATELET - 02/24/19 04:26 Platelet Count 213 140-400 PROTHROMBIN TIME/INR - 02/24/19 04:26 INR 1.1 TX 0.8-1.2 Protime 13.7 11.4-15.0 GLUCOSE POC - 02/24/19 04:49 GLUCOSE POC 129 70-100 GLUCOSE POC - 02/24/19 07:37 GLUCOSE POC 167 70-100 GLUCOSE POC - 02/24/19 11:32 GLUCOSE POC 135 70-100 BASIC METABOLIC PANEL - 02/24/19 11:45 Blood Urea Nitrogen 17 7-26 Chloride 102 96-112 Carbon Dioxide 29 20-32 Creatinine 1.0 0.4-1.1 Glucose 135 70-100 Potassium 4.9 3.5-5.3 Sodium 134 133-147 Calcium 8.8 8.4-10.5 Anion Gap 4 TX 5-17 GFR FEMALE AA 67 60-200 GFR FEMALE NON-AA 56 60-200 GLUCOSE POC - 02/24/19 17:43 GLUCOSE POC 134 70-100 GLUCOSE POC - 02/24/19 21:28 GLUCOSE POC 154 70-100 PROTHROMBIN TIME/INR - 02/25/19 05:01 INR 1.0 TX 0.8-1.2 Protime 13.3 11.4-15.0 RENAL PANEL - 02/25/19 05:01 Albumin 3.3 3.5-5.0 Blood Urea Nitrogen 22 7-26 Chloride 101 96-112 Carbon Dioxide 30 20-32 Creatinine 1.0 0.4-1.1 Glucose 142 70-100 Potassium 4.9 3.5-5.3 Sodium 134 133-147 Calcium 9.4 8.4-10.5 Anion Gap 3 TX 5-17 Phosphorus 3.6 2.5-4.5 GFR FEMALE AA 67 60-200 GFR FEMALE NON-AA 56 60-200 HEPATIC FUNCTION PANEL - 02/25/19 05:01 Alanine Aminotransferase 22 0-34 Albumin 3.3 3.5-5.0 Alkaline Phosphatase 92 42-140 Aspartate Aminotransferase 24 15- 46 Protein Total Serum 5.3 6.0-8.2 BILIRUBIN TOTAL 0.3 0.2-1.3 BILIRUBIN DIRECT 0.0 0.0-0.4 GLUCOSE POC - 02/25/19 08:01 GLUCOSE POC 108 70-100 GLUCOSE POC - 02/25/19 11:25 GLUCOSE POC 107 70-100 GLUCOSE POC - 02/25/19 16:05 GLUCOSE POC 105 70-100 GLUCOSE POC - 02/25/19 17:25 GLUCOSE POC 107 70-100 GLUCOSE POC - 02/25/19 20:54 GLUCOSE POC 121 70-100 PLATELET - 02/26/19 03:38 Platelet Count 199 140-400 RENAL PANEL - 02/26/19 03:38 Albumin 3.3 3.5-5.0 Blood Urea Nitrogen 19 7-26 Chloride 100 96-112 Carbon Dioxide 33 20-32 Creatinine 1.1 0.4-1.1 Glucose 119 70-100 Potassium 4.8 3.5-5.3 Sodium 135 133-147 Calcium 9.4 8.4-10.5 Anion Gap 2 TX 5-17 Phosphorus 5.0 2.5-4.5 GFR FEMALE AA 60 60-200 GFR FEMALE NON-AA 50 60-200 GLUCOSE POC - 02/26/19 07:22 GLUCOSE POC 101 70-100 GLUCOSE POC - 02/26/19 11:10 GLUCOSE POC 102 70-100 GLUCOSE POC - 02/26/19 16:55 GLUCOSE POC 87 70-100 GLUCOSE POC - 02/26/19 21:22 GLUCOSE POC 78 70-100 GLUCOSE POC - 02/26/19 23:53 GLUCOSE POC 122 70-100 GLUCOSE POC - 02/27/19 03:19 GLUCOSE POC 143 70-100 RENAL PANEL - 02/27/19 05:15 Albumin 3.1 3.5-5.0 Blood Urea Nitrogen 15 7-26 Chloride 102 96-112 Carbon Dioxide 33 20-32 Creatinine 1.0 0.4-1.1 Glucose 144 70-100 Potassium 5.4 3.5-5.3 Sodium 138 133-147 Calcium 9.1 8.4-10.5 Anion Gap 3 TX 5-17 Phosphorus 4.3 2.5-4.5 GFR FEMALE AA 67 60-200 GFR FEMALE NON-AA 56 60-200 MAGNESIUM - 02/27/19 05:15 Magnesium 1.7 1.4-2.7 GLUCOSE POC - 02/27/19 08:07 GLUCOSE POC 148 70-100 BASIC METABOLIC PANEL - 02/27/19 10:38 Blood Urea Nitrogen 13 7-26 Chloride 105 96-112 Carbon Dioxide 27 20-32 Creatinine 0.8 0.4-1.1 Glucose 112 70-100 Potassium 4.5 3.5-5.3 Sodium 136 133-147 Calcium 8.3 8.4-10.5 Anion Gap 4 TX 5-17 GFR FEMALE AA 86 60-200 GFR FEMALE NON-AA 72 60-200 GLUCOSE POC - 02/27/19 12:03 GLUCOSE POC 125 70-100 GLUCOSE POC - 02/27/19 16:49 GLUCOSE POC 125 70-100 GLUCOSE POC - 02/27/19 20:32 GLUCOSE POC 160 70-100 PLATELET - 02/28/19 05:40 Platelet Count 200 140-400 RENAL PANEL - 02/28/19 05:40 Albumin 3.6 3.5-5.0 Blood Urea Nitrogen 21 7-26 Chloride 97 96-112 Carbon Dioxide 37 20-32 Creatinine 0.9 0.4-1.1 Glucose 150 70-100 Potassium 4.6 3.5-5.3 Sodium 136 133-147 Calcium 8.8 8.4-10.5 Anion Gap 2 TX 5-17 Phosphorus 3.4 2.5-4.5 GFR FEMALE AA 75 60-200 GFR FEMALE NON-AA 63 60-200 MAGNESIUM - 02/28/19 05:40 Magnesium 2.4 1.4-2.7 GLUCOSE POC - 02/28/19 08:01 GLUCOSE POC 183 70-100 GLUCOSE POC - 02/28/19 11:19 GLUCOSE POC 149 70-100 URINALYSIS - 02/28/19 12:18 APPEARANCE, URINE Yellow NRG GLUCOSE URINE Negative Negative BILIRUBIN URINE Negative Negative KETONES URINE Negative Negative SPECIFIC GRAVITY UA 1.013 TX 1.001-1.03 0 HEMOGLOBIN URINE Negative Negative PH URINE 6.5 TX 5.0-8.0 PROTEIN URINE QUAL Negative Negative UROBILINOGEN URINE Negative Negative NITRITE URINE Negative Negative LEUKOCYTE ESTERASE Positive Negative URINALYSIS MICROSCOPIC ONLY - 02/28/19 1 2:18 MICROSCOPIC RBC URINE 0-5 0-5 MICROSCOPIC WBC URINE 6 - 10 0-5 EPITHELIAL CELLS Absent Absent HYALINE CAST Absent Absent BACTERIA Absent Absent BASIC METABOLIC PANEL - 02/28/19 18:15 Blood Urea Nitrogen 28 7-26 Chloride 96 96-112 Carbon Dioxide 38 20-32 Creatinine 1.1 0.4-1.1 Glucose 141 70-100 Potassium 4.4 3.5-5.3 Sodium 136 133-147 Calcium 9.2 8.4-10.5 Anion Gap 3 TX 5-17 GFR FEMALE AA 60 60-200 GFR FEMALE NON-AA 50 60-200 GLUCOSE POC - 02/28/19 19:57 GLUCOSE POC 151 70-100 BASIC METABOLIC PANEL - 03/01/19 06:30 Blood Urea Nitrogen 25 7-26 Chloride 92 96-112 Carbon Dioxide 39 20-32 Creatinine 1.0 0.4-1.1 Glucose 112 70-100 Potassium 4.0 3.5-5.3 Sodium 134 133-147 Calcium 9.2 8.4-10.5 Anion Gap 3 TX 5-17 GFR FEMALE AA 67 60-200 GFR FEMALE NON-AA 56 60-200 MAGNESIUM - 03/01/19 06:30 Magnesium 2.1 1.4-2.7 GLUCOSE POC - 03/01/19 07:43 GLUCOSE POC 119 70-100 GLUCOSE POC - 03/01/19 12:59 GLUCOSE POC 149 70-100 GLUCOSE POC - 03/01/19 17:11 GLUCOSE POC 120 70-100 BASIC METABOLIC PANEL - 03/01/19 17:26 Blood Urea Nitrogen 26 7-26 Chloride 94 96-112 Carbon Dioxide 36 20-32 Creatinine 1.2 0.4-1.1 Glucose 104 70-100 Potassium 4.1 3.5-5.3 Sodium 138 133-147 Calcium 9.1 8.4-10.5 Anion Gap 8 TX 5-17 GFR FEMALE AA 54 60-200 GFR FEMALE NON-AA 45 60-200 GLUCOSE POC - 03/01/19 20:30 GLUCOSE POC 90 70-100 PLATELET - 03/02/19 06:05 Platelet Count 215 140-400 BASIC METABOLIC PANEL - 03/02/19 06:05 Blood Urea Nitrogen 29 7-26 Chloride 93 96-112 Carbon Dioxide 38 20-32 Creatinine 1.1 0.4-1.1 Glucose 109 70-100 Potassium 4.2 3.5-5.3 Sodium 136 133-147 Calcium 9.6 8.4-10.5 Anion Gap 5 TX 5-17 GFR FEMALE AA 60 60-200 GFR FEMALE NON-AA 50 60-200 GLUCOSE POC - 03/02/19 07:27 GLUCOSE POC 99 70-100 GLUCOSE POC - 03/02/19 11:43 GLUCOSE POC 132 70-100 GLUCOSE POC - 03/02/19 16:41 GLUCOSE POC 90 70-100 BASIC METABOLIC PANEL - 03/02/19 19:44 Blood Urea Nitrogen 27 7-26 Chloride 91 96-112 Carbon Dioxide 37 20-32 Creatinine 1.2 0.4-1.1 Glucose 113 70-100 Potassium 4.2 3.5-5.3 Sodium 135 133-147 Calcium 9.2 8.4-10.5 Anion Gap 7 TX 5-17 GFR FEMALE AA 54 60-200 GFR FEMALE NON-AA 45 60-200 GLUCOSE POC - 03/02/19 21:04 GLUCOSE POC 115 70-100 BASIC METABOLIC PANEL - 03/03/19 06:45 Blood Urea Nitrogen 28 7-26 Chloride 91 96-112 Carbon Dioxide 38 20-32 Creatinine 1.2 0.4-1.1 Glucose 126 70-100 Potassium 4.6 3.5-5.3 Sodium 137 133-147 Calcium 9.3 8.4-10.5 Anion Gap 8 TX 5-17 GFR FEMALE AA 54 60-200 GFR FEMALE NON-AA 45 60-200 GLUCOSE POC - 03/03/19 07:58 GLUCOSE POC 130 70-100 GLUCOSE POC - 03/03/19 11:58 GLUCOSE POC 117 70-100 Complete blood count (CBC) with automate d white blood cell (WBC) differential - 03/15/19 19:27 Blood leukocytes automated count (number/volume) 11.2 10*3/uL 4.3-11.0 Blood erythrocytes automated count (number/volume) 4.34 10*6/uL 4.35-5.85 Venous blood hemoglobin measurement (mass/volume) 11.6 g/dL 11.5-16.0 Blood hematocrit (volume fraction) 38 % 35-52 Automated erythrocyte mean corpuscular volume 87 [ foz_us] 80-99 Automated erythrocyte mean corpuscular h emoglobin (mass per erythrocyte) 27 pg 25-34 Automated erythrocyte mean corpuscular h emoglobin concentration measurement (mass/volume) 31 g/dL 32-36 Automated erythrocyte distribution width ratio 14. 8 % 10.0- 14.5 Automated blood platelet count (count/volume) 337 10*3/uL 130-400 Automated blood platelet mean volume measurement 9.7 [foz_us] 7.4-10.4 Automated blood neutrophils/100 leukocytes 36 % 42-75 Automated blood lymphocytes/100 leukocytes 54 % 12-44 Blood monocytes/100 leukocytes 8 % 0-12 Automated blood eosinophils/100 leukocytes 0 % 0-10 Automated blood basophils/100 leukocytes 0 % 0-10 Blood neutrophils automated count (number/volume) 4.1 10*3 1.8-7.8 Blood lymphocytes automated count (number/volume) 6.1 10*3 1.0-4.0 Blood monocytes automated count (number/volume) 0. 9 10*3 0.0-1.0 Automated eosinophil count 0.1 10*3/uL 0 .0-0.3 Automated blood basophil count (count/volume) 0.1 10*3/uL 0.0-0.1 PT panel in platelet poor plasma by coag ulation assay - 03/15/19 19:27 Prothrombin time (PT) in platelet poor plasma by coagu lation assay 15.4 s 12.2-14.7 INR in platelet poor plasma or blood by coagulation as say 1.2 0.8-1.4 Activated partial thromboplastin time (a PTT) in platelet poor plasma bycoagulation assay - 03/15/19 19:27 Activated partial thromboplastin time (a PTT) in platelet poor plasma bycoagulation assay 32 s 24-35 Comprehensive metabolic panel - 03/15/19 19:27 Serum or plasma sodium measurement (moles/volume) 137 mmol/L 135-145 Serum or plasma potassium measurement (moles/volume) 4.6 mmol/L 3.6-5.0 Serum or plasma chloride measurement (moles/volume) 100 mmol/L 98-107 Carbon dioxide 21 mmol/L 21-32 Serum or plasma anion gap determination (moles/volume) 16 mmol/L 5-14 Serum or plasma urea nitrogen measurement (mass/volume ) 6 mg/dL 7-18 Serum or plasma creatinine measurement (mass/volume) 1.09 mg/dL 0.60-1.30 Serum or plasma urea nitrogen/creatinine mass ratio 6 NRG Serum or plasma creatinine measurement w ith calculation of estimated glomerular filtration rate > NRG Serum or plasma glucose measurement (mass/volume) 201 mg/dL 70-105 Serum or plasma calcium measurement (mass/volume) 9.6 mg/dL 8.5-10.1 Serum or plasma total bilirubin measurement (mass/volu me) 0.3 mg/dL 0.1-1.0 Serum or plasma alkaline phosphatase rebecca surement (enzymatic activity/volume) 108 U/L 40-136 Serum or plasma aspartate aminotransfera se measurement (enzymatic activity/volume) 26 U/L 5-34 Serum or plasma alanine aminotransferase measurement (enzymatic activity/volume) 17 U/L 0-55 Serum or plasma protein measurement (mass/volume) 6.8 g/dL 6.4-8.2 Serum or plasma albumin measurement (mass/volume) 3.9 g/dL 3.2-4.5 CALCIUM CORRECTED 9.7 mg/dL 8.5-10.1 Magnesium - 03/15/19 19:27 Magnesium 1.6 mg/dL 1.6-2.4 TROPONIN I FS - 03/15/19 19:27 TROPONIN I FS 48.93 ng/mL <0.30 PROBNP FS - 03/15/19 19:27 PROBNP FS 685.0 pg/mL <75.0 TROPONIN - 03/15/19 23:25 Troponin 0.05 0.00-0.03 GLUCOSE POC - 03/16/19 04:35 GLUCOSE POC 130 70-100 COMPLETE BLOOD COUNT - 03/16/19 06:16 WBC 8.96 4.00-11.00 Hematocrit 34 36-45 Hemoglobin 10.8 12.0-15.0 MCH 27 27-34 MCHC 32 32-36 MCV 84 80-99 MPV 9.7 9.4-12.3 Platelet Count 247 140-400 RBC 4.03 4.00-5.00 RDW 14.8 11.5-14.5 NUCLEATED RBCS 0 0-0 MAGNESIUM - 03/16/19 06:16 Magnesium 1.7 1.4-2.7 COMPREHENSIVE METABOLIC PANEL - 03/16/19 06:16 Alanine Aminotransferase 16 0-34 Albumin 3.4 3.5-5.0 Alkaline Phosphatase 85 42-140 Aspartate Aminotransferase 22 15- 46 Blood Urea Nitrogen 9 7-26 Chloride 107 96-112 Carbon Dioxide 25 20-32 Creatinine 0.9 0.4-1.1 Glucose 91 70-100 Potassium 3.9 3.5-5.3 Sodium 137 133-147 Calcium 9.4 8.4-10.5 Anion Gap 5 TX 5-17 Protein Total Serum 5.7 6.0-8.2 BILIRUBIN TOTAL < 0.2-1.3 GFR FEMALE AA 75 60-200 GFR FEMALE NON-AA 63 60-200 LIPID PANEL - 03/16/19 06:16 HDL Cholesterol 33 40-110 LDL Cholesterol 77 0-99 Triglycerides 82 0-150 CHOLESTEROL 126 100-200 NON-HDL CHOLESTEROL 93 0-130 CHOLESTEROL/HDL RATIO 3.8 TX 0.0-4.5 IRON/TRANSFERRIN - 03/16/19 06:16 Iron 48 50-180 Total Iron-Binding Capacity 250 20 4-408 Transferrin 208 206-381 IRON/TRANSFERRIN % SATURATION 19 15-50 TROPONIN - 03/16/19 06:16 Troponin 0.06 0.00-0.03 T4 FREE - 03/16/19 06:16 T4 FREE 1.9 0.8-2.2 FERRITIN - 03/16/19 06:16 Ferritin 56 20-200 THYROID STIMULATING HORMONE - 03/16/19 0 6:16 Thyroid Stimulating Hormone 2.20 0. 47-4.68 HEMOGLOBIN A1C - 03/16/19 06:16 Hemoglobin A1C 6.4 4.0-5.6 TROPONIN - 03/16/19 10:55 Troponin 0.05 0.00-0.03 GLUCOSE POC - 03/16/19 12:36 GLUCOSE POC 86 70-100 TROPONIN - 03/16/19 14:15 Troponin 0.04 0.00-0.03 GLUCOSE POC - 03/16/19 17:07 GLUCOSE POC 90 70-100 GLUCOSE POC - 03/16/19 21:22 GLUCOSE POC 175 70-100 BASIC METABOLIC PANEL - 03/17/19 01:55 Blood Urea Nitrogen 9 7-26 Chloride 105 96-112 Carbon Dioxide 28 20-32 Creatinine 0.9 0.4-1.1 Glucose 96 70-100 Potassium 4.3 3.5-5.3 Sodium 136 133-147 Calcium 9.1 8.4-10.5 Anion Gap 3 TX 5-17 GFR FEMALE AA 75 60-200 GFR FEMALE NON-AA 63 60-200 MAGNESIUM - 03/17/19 01:55 Magnesium 3.1 1.4-2.7 GLUCOSE POC - 03/17/19 07:51 GLUCOSE POC 86 70-100 GLUCOSE POC - 03/17/19 11:25 GLUCOSE POC 107 70-100 GLUCOSE POC - 03/17/19 17:20 GLUCOSE POC 94 70-100 GLUCOSE POC - 03/17/19 21:38 GLUCOSE POC 119 70-100 MAGNESIUM - 03/18/19 02:31 Magnesium 1.7 1.4-2.7 BASIC METABOLIC PANEL - 03/18/19 02:31 Blood Urea Nitrogen 10 7-26 Chloride 97 96-112 Carbon Dioxide 34 20-32 Creatinine 1.2 0.4-1.1 Glucose 122 70-100 Potassium 4.0 3.5-5.3 Sodium 137 133-147 Calcium 9.5 8.4-10.5 Anion Gap 6 TX 5-17 GFR FEMALE AA 54 60-200 GFR FEMALE NON-AA 45 60-200 GLUCOSE POC - 03/18/19 08:18 GLUCOSE POC 121 70-100 GLUCOSE POC - 03/18/19 13:25 GLUCOSE POC 108 70-100 GLUCOSE POC - 03/18/19 17:39 GLUCOSE POC 102 70-100 GLUCOSE POC - 03/18/19 21:42 GLUCOSE POC 104 70-100 BASIC METABOLIC PANEL - 03/19/19 06:30 Blood Urea Nitrogen 11 7-26 Chloride 95 96-112 Carbon Dioxide 34 20-32 Creatinine 1.5 0.4-1.1 Glucose 109 70-100 Potassium 4.0 3.5-5.3 Sodium 136 133-147 Calcium 9.4 8.4-10.5 Anion Gap 7 TX 5-17 GFR FEMALE AA 42 60-200 GFR FEMALE NON-AA 35 60-200 MAGNESIUM - 03/19/19 06:30 Magnesium 2.1 1.4-2.7 GLUCOSE POC - 03/19/19 08:16 GLUCOSE POC 109 70-100 GLUCOSE POC - 03/19/19 11:28 GLUCOSE POC 118 70-100 GLUCOSE POC - 03/19/19 17:02 GLUCOSE POC 126 70-100 GLUCOSE POC - 03/19/19 21:15 GLUCOSE POC 137 70-100 BASIC METABOLIC PANEL - 03/20/19 04:34 Blood Urea Nitrogen 13 7-26 Chloride 95 96-112 Carbon Dioxide 32 20-32 Creatinine 1.1 0.4-1.1 Glucose 87 70-100 Potassium 4.2 3.5-5.3 Sodium 133 133-147 Calcium 9.3 8.4-10.5 Anion Gap 6 TX 5-17 GFR FEMALE AA 60 60-200 GFR FEMALE NON-AA 50 60-200 MAGNESIUM - 03/20/19 04:34 Magnesium 2.0 1.4-2.7 GLUCOSE POC - 03/20/19 07:30 GLUCOSE POC 127 70-100 TROPONIN - 03/20/19 11:07 Troponin 0.03 0.00-0.03 GLUCOSE POC - 03/20/19 11:28 GLUCOSE POC 96 70-100 GLUCOSE POC - 03/20/19 16:17 GLUCOSE POC 116 70-100 GLUCOSE POC - 03/20/19 21:22 GLUCOSE POC 104 70-100 MAGNESIUM - 03/21/19 02:30 Magnesium 2.0 1.4-2.7 BASIC METABOLIC PANEL - 03/21/19 02:30 Blood Urea Nitrogen 13 7-26 Chloride 98 96-112 Carbon Dioxide 32 20-32 Creatinine 1.1 0.4-1.1 Glucose 116 70-100 Potassium 4.6 3.5-5.3 Sodium 135 133-147 Calcium 9.1 8.4-10.5 Anion Gap 4 TX 5-17 GFR FEMALE AA 60 60-200 GFR FEMALE NON-AA 50 60-200 GLUCOSE POC - 03/21/19 07:26 GLUCOSE POC 91 70-100 Encounters ACCT No. Visit Date/Time Discharge Status Pt. Type Provider Facility Loc./Unit Complaint [id number] 04/10/2019 09:46:13 23:59:59 [facility] Outpatient [facility]IO Post hospital follow up [id number] 04/05/2019 11:33:54 23:59:59 [facility] Outpatient [facility] RE M DEV Presence of automatic (implantable) card iac defibrillator [id number] 03/22/2019 14:30:18 23:59:59 [facility] Outpatient [facility] O UT IMG Pain, unspecified [id number] 03/15/2019 23:13:09 15:40:00 DIS Inpatient ALEXANDRA ACOSTA [facility] SICC H4S Ventricular tachycardia [id number] 02/23/2019 03:59:22 17:12:00 DIS Inpatient YOHANNES DUENAS [facility] H6N Ventricular Tachycardia [id number] 02/20/2019 10:28:26 23:59:59 [facility]LS Outpatient SL RE M DEV Presence of automatic (implantable) card iac defibrillator [id number] 01/26/2019 02:26:19 14:18:00 DIS Inpatient NICOLAS BAUTISTA [facility] H6N Chest Pain [id number] 01/18/2019 13:40:41 23:59:59 CLS Outpatient MG B R LAB Essential (primary) hypertension [id number] 01/18/2019 12:55:00 23:59:59 CLS Outpatient DOLORES DILLARD [facility] BR Follow-up [id number] 01/06/2019 08:06:09 23:59:59 [facility] Outpatient [facility] RE M DEV Presence of cardiac and vascular implant and graft, unspecified [id number] 12/14/2018 09:54:09 23:59:59 CLS Outpatient SONIA RUIZ [facility] CARDIO Congestive Heart Failure [id number] 12/05/2018 12:22:19 23:59:59 [facility] Outpatient [facility] RE M DEV Presence of automatic (implantable) card iac defibrillator [id number] 11/18/2018 15:07:59 23:59:59 [facility] Outpatient [facility] Chronic combined systolic (congestive) and diastolic (congestive) heart failure [id number] 11/18/2018 14:16:16 23:59:59 [facility] Outpatient [facility] [place] [facility] Chronic combined systolic and diastolic heart failure (HCC) [id number] 11/18/2018 12:53:20 23:59:59 [facility] Outpatient [facility] [place] [facility] Device follow-up [id number] 11/16/2018 15:51:25 23:59:59 [facility] Outpatient [facility] RE M DEV Presence of cardiac and vascular implant and graft, unspecified [id number] 10/18/2018 13:33:20 23:59:59 CLS Outpatient SL RE M DEV Presence of automatic (implantable) card iac defibrillator [id number] 10/12/2018 08:31:33 23:59:59 CLS Outpatient DILLARD, DOLORES [facility] Follow-up [id number] 10/03/2018 13:19:13 23:59:59 CLS Outpatient [facility] [place] [facility] [id number] 09/17/2018 12:05:22 14:27:00 DIS Inpatient PATSY MONROE [facility] H6S NSTEMI [id number] 09/01/2018 09:05:25 23:59:59 CLS Outpatient [facility] RE M DEV Presence of cardiac and vascular implant and graft, unspecified [id number] 08/05/2018 13:31:26 23:59:59 CLS Outpatient WALESKA PEREZ [facility] MWPULM Chronic obstructive pulmonary disease, u nspecified [id number] 08/05/2018 12:32:35 23:59:59 CLS Outpatient [facility] MW PULM Cough [id number] 08/05/2018 16:00:44 21:14:00 DIS Emergency YANETH WILKERSON [facility] ED Shortness of Breath [id number] 07/11/2018 13:19:01 23:59:[address] Pneumonia, unspecified organism [id number] 04/20/2019 14:02:[address] Outpatient DILLARD, DOLORES [facility] Follow-up [id number] 02/22/2019 08:06:55 Document Registration [id number] 02/20/2019 17:29:42 Document Registration [id number] 02/04/2019 09:13:51 Document Registration [id number] 01/17/2019 15:34:54 Document Registration [id number] 01/11/2019 15:23:38 Document Registration [id number] 12/16/2018 12:40:46 Document Registration [id number] 12/13/2018 13:58:20 Document Registration [id number] 12/07/2018 08:36:02 Document Registration [id number] 11/24/2018 12:40:42 Document Registration [id number] 11/10/2018 13:08:00 Document Registration [id number] 10/18/2018 16:49:48 Document Registration [id number] 09/26/2018 14:23:44 Document Registration [id number] 07/18/2018 15:52:46 Document Registration [id number] 07/13/2018 15:28:58 Document Registration [id number] 07/11/2018 12:14:55 Document Registration [id number] 06/28/2018 12:55:10 Document Registration [id number] 07/08/2018 22:40:00 01:06:00 DIS Emergency TRU DO, CECILIO K [facility] ER SOB [id number] 04/19/2019 10:39:00 11:08:00 DIS Emergency DIMA SARGENT, JOY Jorge [facility] ER FS SOB [id number] 03/15/2019 19:14:00 19:36:00 DIS Emergency KEITH SARGENT, MOSES Cartwright [facility] ER FS CHEST PAIN [id number] 02/23/2019 00:32:00 02:30:00 DIS Emergency MAY SARGENT, MADDIE Ríos [facility] ER FS DEFIBRILLATOR FIRING [id number] 02/09/2019 19:24:00 21:20:00 DIS Emergency KEITH SARGENT, MOSES Cartwright [facility] ER FS PULMONARY ANEMIA [id number] 01/25/2019 19:53:00 00:10:00 DIS Emergency XIN LOAIZA MD [facility] ER FS CHEST PAIN [id number] 01/15/2019 16:56:00 19:30:00 DIS Emergency ISABEL SARGENT, GANGA Olivia [facility] ER FS SOB,COUGH [id number] 11/24/2018 21:52:00 00:32:00 DIS Emergency XIN LOAIZA MD [facility] ER FS COUGH, SOB [id number] 09/17/2018 08:01:00 10:07:00 DIS Emergency MAGNOLIA SARGENT, ALEXANDRA [facility] ER FS SOA [id number] 07/07/2018 23:43:00 02:38:00 DIS Emergency XIN LOAIZA MD [facility] ER FS SOB [id number] 06/21/2018 09:04:00 13:19:00 DIS Emergency KEYSHAWN LANDA DO [facility] ER FS SOB [id number] 05/31/2018 18:55:00 20:34:00 DIS Emergency ISABEL SARGENT, GANGA Olivia [facility] ER FS SOB [id number] 05/30/2018 13:21:00 17:05:00 DIS Emergency FAIZA JUAREZ DO [facility] ER FS SOB [id number] 04/21/2018 22:00:00 01:10:00 DIS Emergency FAIZA JUAREZ DO [facility] ER FS CP [id number] 04/14/2018 14:19:00 14:50:00 DIS KEYSHAWN Guthrie DO [facility] ER FS RT LEG PAIN [id number] 04/14/2018 14:19:00 14:19:00 CAN Preadmit KEYSHAWN LANDA DO Via [facility] ER FS RT STUMP PAIN [id number] 04/11/2018 12:35:00 14:14:00 DIS Emergency ASIM AKBAR MD [facility] ER FS RT LEG PAIN [id number] 03/31/2018 22:29:00 03:25:00 DIS Emergency MAGED RODGERS DO [facility] ER FS SOA [id number] 10/27/2018 08:23:00 Document Registration [id number] 07/14/2018 10:35:00 Document Registration [id number] 10/26/2018 20:07:00 03:18:00 DIS Emergency ISABEL SARGENT, GANGA Olivia [facility] ER FS RAPID HEART RATE [id number] 07/07/2018 23:43:00 019 02:38:00 DIS Emergency FADIA SARGENT, XIN George [facility] ER FS SOB [id number] 06/17/2018 15:20:00 06/17/2018 23:5 9:59 [facility] Outpatient [facility]
[2019-04-25] MEDS ORDERED: POTA10TA PO (14:32)
[2019-04-25] MEDS ORDERED: MAGN400T8 PO (14:32)
[2019-04-25] MEDS ORDERED: LANS15CA5 PO (14:32)
[2019-04-25] MEDS ORDERED: AMIO200T4 PO (14:32)
[2019-04-25] MEDS ORDERED: HYDR-3923 PO (14:32)
[2019-04-25] MEDS ORDERED: BUDE10.2 PO (14:32)
[2019-04-25] MEDS ORDERED: OXYC-191 PO (14:32)
[2019-04-25] MEDS ORDERED: CHOL10007 PO (14:34)
[2019-04-25] MEDS ORDERED: GUAI600T43 PO (14:35)
[2019-04-25] MEDS ORDERED: FLUT9.9S NS (14:35)
== END 2019-04-19 11:08 | disposition home or self-care (01) ==
LOC: EDUNIT# 10:38 → ER FS 10:39
DX: R06.00 Dyspnea, unspecified (principal); J44.9 Chronic obstructive pulmonary disease, unspecified; I10 Essential (primary) hypertension; E11.9 Type 2 diabetes mellitus without complications; E03.9 Hypothyroidism, unspecified; F41.9 Anxiety disorder, unspecified; F32.9 Major depressive disorder, single episode, unspecified; Z99.81 Dependence on supplemental oxygen; Z88.8 Allergy status to other drugs, medicaments and biological substances; Z91.041 Radiographic dye allergy status; Z88.5 Allergy status to narcotic agent; Z79.01 Long term (current) use of anticoagulants; Z79.82 Long term (current) use of aspirin; Z79.52 Long term (current) use of systemic steroids; Z79.84 Long term (current) use of oral hypoglycemic drugs; Z77.22 Contact with and (suspected) exposure to environmental tobacco smoke (acute) (chronic); Z79.51 Long term (current) use of inhaled steroids
CPT/HCPCS: 71045